=== PATIENT | male | born 1960 | race Caucasian/White ===

== ENCOUNTER 2017-01-11 11:39 | Inpatient (IN) | payer OTHER ==
[2017-01-11 13:17] VITALS: BMI 25.0
--- NOTE | 2017-01-11 13:35 | HP ---
CIWA Score - CIWA Score Nausea/Vomitin-No Nausea/No Vomiting Muscle Tremors: 4-Moderate,w/Arms Extend Anxiety: 4-Mod. Anxious/Guarded Agitation: 4-Moderately Restless Paroxysmal Sweats: 1-Minimal Palms Moist Orientation: 0-Oriented Tacttile Disturbances: 3-Moderate Itch/Numb/Burn Auditory Disturbances: 0-None Visual Disturbances: 0-None Headache: 1-Very Mild CIWA-Ar Total Score: 17 Admission ROS S - HPI Chief Complaint: DETOX TX FOR ALCOHOL DEPENDENCE Allergies/Adverse Reactions: Allergies Allergy/AdvReac Type Severity Reaction Status Date / Time chlordiazepoxide HCl Allergy Rash Verified 01/11/17 12:43 [From Librium] History of Present Illness: 57 Y/O H/M WITH A HX OFALCOHOL,COCAINE AND MARIJUANA DEPENDENCE SEEKING DETOX TX. Exam Limitations: No Limitations - Ebola screening Have you traveled outside of the country in the last 21 days: No Have you had contact with anyone from an Ebola affected area: No Have you been sick,other than usual withdrawal symptoms: No Do you have a fever: No - Review of Systems Constitutional: Chills, Loss of Appetite, Night Sweats, Changes in sleep, Unintentional Wgt. Loss EENT: reports: Tearing, Nose Congestion Respiratory: reports: Shortness of Breath, Wheezing (HX ASTHMA) Cardiac: reports: Lightheadedness GI: reports: Poor Appetite, Poor Fluid Intake, Abdominal cramping : reports: Dysuria, Other (PROSTATE PROBLEM--ON FLOMAX; HAD CATHETER INDWELLING FOR FEW DAYS TO WEEKS.) Musculoskeletal: reports: Back Pain, Joint Pain, Muscle Pain Integumentary: reports: Rash (FACIAL) Neuro: reports: Headache, Tremors, Dizziness Endocrine: reports: No Symptoms Reported Hematology: reports: No Symptoms Reported Psychiatric: reports: Orientated x3, Anxious, Depressed Other Systems: Reviewed and Negative Patient History - Patient Medical History Hx Anemia: Yes (vit b 12 given ) Hx Asthma: Yes (MDI) Hx Chronic Obstructive Pulmonary Disease (COPD): No Hx Cancer: No Hx Cardiac Disorders: No Hx Congestive Heart Failure: No Hx Hypertension: Yes (ON MED) Hx Hypercholesterolemia: No Hx Pacemaker: No HX Cerebrovascular Accident: No Hx Seizures: No Hx Dementia: No Hx Diabetes: No Hx Gastrointestinal Disorders: No Hx Liver Disease: Yes (CIRRHOSIS) Hx Genitourinary Disorders: No Hx Sexually Transmitted Disorders: Yes (genital herpes-ON VALTREX) Hx Renal Disease (ESRD): No Hx Thyroid Disease: No Hx Human Immunodeficiency Virus (HIV): Yes (ORAL THRUSH IN THE PAST; TRIZIVIR & VIRAMUNE) Hx Hepatitis C: Yes (tx with interferon 2013,DID NOT WORK.WILL BE TX. WITH HARVONI ) Hx Depression: Yes Hx Suicide Attempt: No Hx Bipolar Disorder: Yes ( ) Hx Schizophrenia: No - Patient Surgical History Past Surgical History: Yes Hx Neurologic Surgery: No Hx Cataract Extraction: No Hx Cardiac Surgery: No Hx Lung Surgery: No Hx Breast Surgery: No Hx Breast Biopsy: No Hx Abdominal Surgery: No Hx Appendectomy: No Hx Cholecystectomy: No Hx Genitourinary Surgery: No Hx Section: No Hx Orthopedic Surgery: No Other Surgical History: R WRIST SX in 1983 for a laceration Anesthesia Reaction: Yes - PPD History Previous Implant?: Yes Documented Results: Negative w/proof Implanted On Prior [facility] Admission?: Yes Date: 12/12/15 Results: 0 mm PPD to be Administered?: Yes - Reproductive History Patient is a Female of Child Bearing Age (11 -55 yrs old): No (MALE) - Smoking Cessation Smoking history: Current every day smoker Have you smoked in the past 12 months: Yes Aproximately how many cigarettes per day: 30 Hx Chewing Tobacco Use: No Initiated information on smoking cessation: Yes 'Breaking Loose' booklet given: 01/11/17 - Substance & Tx. History Hx Alcohol Use: Yes (COGNAC/WHISKY/BEER) Hx Substance Use: Yes (COCAINE/MARIJUANA) Substance Use Type: Alcohol, Cocaine, Marijuana Hx Substance Use Treatment: Yes ([facility]) - Substances Abused Crack Route: Smoking Frequency: 1-2 times per week Amount used: $200 Age of first use: 25 Date of Last Use: 01/10/17 Alcohol-cognac/whisky/beer Route: Oral Frequency: Daily Amount used: 1 pt./6 (40 oz.) Age of first use: 14 Date of Last Use: 01/11/17 Family Disease History - Family Disease History Family Disease History: Diabetes: Mother, Respiratory: Sister, Other: Father ( addiction to heroin) Admission Physical Exam S - Vital Signs Vital Signs: Vital Signs - 24 hr 01/11/17 13:01 Temperature 96.4 F L Pulse Rate 71 Respiratory 18 Rate Blood Pressure 129/92 - Physical General Appearance: Yes: Moderate Distress, Irritable, Anxious HEENTM: Yes: Normocephalic, ROB, Pharynx Normal, Nasal Congestion, Rhinorrhea Respiratory: Yes: Lungs Clear, Normal Breath Sounds, No Respiratory Distress Neck: Yes: Supple, Trachea in good position Breast: Yes: Breast Exam Deferred Cardiology: Yes: Regular Rhythm, Regular Rate, S1, S2 Abdominal: Yes: Normal Bowel Sounds, Non Tender, Soft Genitourinary: Yes: Other (N/C) Musculoskeletal: Yes: full range of Motion, Gait Steady Extremities: Yes: Normal Range of Motion, Non-Tender Neurological: Yes: crew director II-XII NML intact, Fully Oriented, Alert Integumentary: Yes: Dry, Warm Lymphatic: Yes: Within Normal Limits - Diagnostic (1) Alcohol dependence with uncomplicated withdrawal Current Visit: Yes Status: Acute (2) Cocaine dependence Current Visit: Yes Status: Acute Qualifiers: Substance use status: uncomplicated Qualified Code(s): F14.20 - Cocaine dependence, uncomplicated (3) AIDS (acquired immune deficiency syndrome) Current Visit: Yes Status: Chronic (4) Asthma Current Visit: Yes Status: Chronic Qualifiers: Asthma severity: mild intermittent Asthma complication type: uncomplicated Qualified Code(s): J45.20 - Mild intermittent asthma, uncomplicated (5) Cirrhosis of liver Current Visit: Yes Status: Chronic Qualifiers: Ascites presence: without ascites (6) HIV (human immunodeficiency virus infection) Current Visit: Yes Status: Chronic (7) HTN (hypertension) Current Visit: Yes Status: Chronic Qualifiers: Hypertension type: essential hypertension (8) Hepatitis C Current Visit: Yes Status: Chronic Qualifiers: Viral hepatitis chronicity: chronic Hepatic coma status: without hepatic coma Qualified Code(s): B18.2 - Chronic viral hepatitis C (9) Herpes genitalis in men Current Visit: Yes Status: Chronic (10) Nicotine dependence Current Visit: Yes Status: Chronic Qualifiers: Nicotine product type: cigarettes Substance use status: in withdrawal Qualified Code(s): F17.213 - Nicotine dependence, cigarettes, with withdrawal (11) BPH (benign prostatic hypertrophy) Current Visit: Yes Status: Chronic Qualifiers: Lower urinary tract symptom presence: presence of symptoms unspecified Cleared for Admission S - Detox or Rehab [facility] Level of Care: Medically Managed Detox Regimen/Protocol: Valium BHS Breath Alcohol Content Breath Alcohol Content: 0.042 Urine Drug Screen - Results Drug Screen Negative: No Urine Drug Screen Results: THC-Marijuana, ANGIE-Cocaine
[2017-01-11] MEDS ORDERED: P-EPHED 60MG/TRIPROLIDI 2.5MG TABLET PO PRN (13:47)
[2017-01-11] MEDS ORDERED: IBUPROFEN 400 MG TABLET (FP) PO PRN (13:47)
[2017-01-11] MEDS ORDERED: LOPERAMIDE HCL 2 MG CAPSULE PO PRN (13:47)
[2017-01-11] MEDS ORDERED: guaiFENesin/D-METHORPHAN HB 10 ML UNIT-DOSE CUPS PO PRN (13:47)
[2017-01-11] MEDS ORDERED: diphenhydrAMINE HCL 50 MG CAPSULE PO PRN (13:47)
[2017-01-11] MEDS ORDERED: hydrOXYzine PAMOATE 25 MG CAPSULE (FP) PO PRN (13:47)
[2017-01-11] MEDS ORDERED: NICOTINE POLACRILEX 4 MG GUM BUC PRN (13:47)
[2017-01-11] MEDS ORDERED: ACETAMINOPHEN 325 MG TABLET (FP) PO PRN (13:47)
[2017-01-11] MEDS ORDERED: MAGNESIUM CITRATE 300 ML BOTTLE PO PRN (13:47)
[2017-01-11] MEDS ORDERED: MENTHOL/PHENOL 1 EACH UD MM PRN (13:47)
[2017-01-11] MEDS ORDERED: MAGNESIUM HYDROX 2400MG/30ML ORAL SUSPENSION 30 ML CUP PO PRN (13:47)
[2017-01-11] MEDS ORDERED: MAG HYDROX/AL HYDROX/SIMETH 30 ML UNIT-DOSE CUP PO PRN (13:47)
[2017-01-11] MEDS ORDERED: diazePAM 5 MG TABLET PO PRN (13:47)
[2017-01-11] MEDS ORDERED: ALBUTEROL SO4 6.7 GM HFA INHALER IH PRN (13:51)
[2017-01-11] MEDS ORDERED: diazePAM 5 MG TABLET PO ONE (14:22)
[2017-01-11] MEDS: HYDROCORTISONE 1% TOPICAL CREAM 30 GM TUBE TP SCH ×2 (15:15→22:06)
[2017-01-11] MEDS: NICOTINE 21 MG/24 HOURS TOPICAL PATCH TD SCH (15:15)
[2017-01-11] MEDS: amLODIPine BESYLATE 10 MG TABLET (FP) PO SCH (15:15)
[2017-01-11] MEDS: valACYclovir HCL 500 MG TABLET (FP) PO SCH (15:18)
[2017-01-11] MEDS: diazePAM 5 MG TABLET PO SCH (22:06)
[2017-01-11] MEDS: LAMIVUDINE PO SCH (22:07)
[2017-01-11] MEDS: NEVIRAPINE 200 MG TABLET PO SCH (22:07)
[2017-01-11] MEDS: ABACAVIR PO SCH (22:07)
[2017-01-11] MEDS: ZIDOVUDINE PO SCH (22:07)
[2017-01-11] MEDS: TAMSULOSIN HCL 0.4 MG CAP.ER.24H (FP) PO SCH (22:07)
[2017-01-11] MEDS: THIAMINE HCL 100 MG TABLET (FP) PO SCH (22:09)
[2017-01-11 23:31] LABS: URINE APPEARANCE CLEAR; URINE BILIRUBIN NEGATIVE (NEGATIVE); URINE BLOOD NEGATIVE (NEGATIVE); URINE COLOR AMBER; URINE GLUCOSE (UA) NEGATIVE (NEGATIVE); URINE KETONE NEGATIVE (NEGATIVE); URINE LEUK ESTERASE NEGATIVE (NEGATIVE); URINE NITRITE NEGATIVE (NEGATIVE); URINE UROBILINOGEN 4.0 E.U/dl E.U./dl (0.2-1.0)
[2017-01-11 23:36] LABS: URINE PROTEIN 2+ (NEGATIVE)
[2017-01-11 23:40] LABS: URINE MUCUS MODERATE; URINE RBC 65 /hpf (0-3); URINE WBC 21 /hpf (3-5)
[2017-01-12] MEDS: diazePAM 5 MG TABLET PO SCH ×3 (06:05→22:04)
[2017-01-12] MEDS: PRENATAL VITAMINS W/ FOLIC ACID TABLET (FP) PO SCH (10:26)
[2017-01-12] MEDS: valACYclovir HCL 500 MG TABLET (FP) PO SCH (10:26)
[2017-01-12] MEDS: LAMIVUDINE PO SCH ×2 (10:26→22:04)
[2017-01-12] MEDS: ZIDOVUDINE PO SCH ×2 (10:26→22:04)
[2017-01-12] MEDS: ABACAVIR PO SCH ×2 (10:26→22:04)
[2017-01-12] MEDS: NEVIRAPINE 200 MG TABLET PO SCH ×2 (10:27→22:05)
[2017-01-12] MEDS: NICOTINE 21 MG/24 HOURS TOPICAL PATCH TD SCH (10:27)
[2017-01-12] MEDS: amLODIPine BESYLATE 10 MG TABLET (FP) PO SCH (10:28)
[2017-01-12] MEDS: HYDROCORTISONE 1% TOPICAL CREAM 30 GM TUBE TP SCH ×2 (10:28→22:05)
[2017-01-12 10:46] LABS: BILIRUBIN,TOTAL 0.8 mg/dL (0.2-1.0); CALCIUM 8.8 mg/dL (8.5-10.1); COCKROFT - GAULT 65.9; CREATININE 1.3 mg/dL (0.7-1.3)
[2017-01-12 11:01] LABS: MCH 38.5 pg (25.7-33.7); MCHC 35.7 g/dl (32.0-35.9); MEAN CELL VOLUME 107.7 fl (80-96); MEAN PLT VOLUME 8.9 fl (7.5-11.1); PLATELET COUNT 218 K/MM3 (134-434); RDW 20.3 % (11.9-15.9); WHITE BLOOD COUNT 7.4 K/mm3 (4.0-10.0)
--- NOTE | 2017-01-12 12:22 | PN ---
S CIWA - CIWA Score Nausea/Vomitin-No Nausea/No Vomiting Muscle Tremors: 4-Moderate,w/Arms Extend Anxiety: 4-Mod. Anxious/Guarded Agitation: 3 Paroxysmal Sweats: 3 Orientation: 0-Oriented Tacttile Disturbances: 0-None Auditory Disturbances: 0-None Visual Disturbances: 0-None Headache: 0-None Present CIWA-Ar Total Score: 14 BHS Progress Note (SOAP) Subjective: Tremors,anxiety,sweating,interrupted sleep,restless Objective: 01/12/17 12:20 Vital Signs - 8 hr 01/12/17 01/12/17 06:24 09:55 Temperature 96 F L 95.0 F L Pulse Rate 86 67 Respiratory 8 L 20 Rate Blood Pressure 141/93 142/90 Laboratory Tests 01/11/17 01/12/17 01/12/17 22:05 06:00 06:00 WBC 7.4 RBC 3.76 L Hgb 14.4 Hct 40.4 MCV 107.7 H MCHC 35.7 RDW 20.3 H Plt Count 218 D MPV 8.9 D Sodium 139 Potassium 3.6 Chloride 102 Carbon Dioxide 27 D Anion Gap 10 BUN 20 H D Creatinine 1.3 D Creat Clearance w eGFR 57.31 Random Glucose 77 D Calcium 8.8 Total Bilirubin 0.8 AST 39 H D ALT 29 D Alkaline Phosphatase 88 Total Protein 8.0 Albumin 4.0 Urine Color Silvia Urine Appearance Clear Urine pH 5.0 Ur Specific [place] 1.030 Urine Protein 2+ H Urine Glucose (UA) Negative Urine Ketones Negative Urine Blood Negative Urine Nitrite Negative Urine Bilirubin Negative Urine Urobilinogen 4.0 e.u/dl Ur Leukocyte Esterase Negative Urine RBC 65 Urine WBC 21 Urine Mucus Moderate labs noted Assessment: 01/12/17 12:21 Withdrawal sx. Plan: Continue detox
--- NOTE | 2017-01-12 12:30 | CONSULT ---
[facility] Psychiatric Consult - Data Date of interview: 01/12/17 Admission source: [facility] Identifying data: Another admission to [facility] for this 57 y/o male seeking detox treatment for cocaine,marijuana and alcohol dependence.Patient is single without children,unemployed,domiciled (O setting) and supported through [facility] services. Substance Abuse History: - Smoking Cessation. Smoking history: Current every day smoker. Have you smoked in the past 12 months: Yes. Aproximately how many cigarettes per day: 30. Hx Chewing Tobacco Use: No. Initiated information on smoking cessation: Yes. 'Breaking Loose' booklet given: 01/11/17. - Substance & Tx. History. Hx Alcohol Use: Yes (COGNAC/WHISKY/BEER). Hx Substance Use: Yes (COCAINE/MARIJUANA). Substance Use Type: Alcohol, Cocaine, Marijuana. Hx Substance Use Treatment: Yes ([facility]-DETOX). - Substances Abused. Crack. Route: Smoking. Frequency: 1-2 times per week. Amount used: $200. Age of first use: 25. Date of Last Use: 01/10/17. Alcohol-cognac/whisky/beer. Route: Oral. Frequency: Daily. Amount used: 1 pt./6 (40 oz.). Age of first use: 14. Date of Last Use: 01/11/17. Confirmed by patient. Medical History: HIV infection since 1985,herpes genitalis,bronchial asthma,HTN, cirrhosis of liver,hepatitis C and BPH (benign prostatic hyperplasia).Noted past history of treatment for gonorrhea. Psychiatric History: Long standing history of mental illness.Multiple psychiatric hospitalizations.Diagnosed with Bipolar Disorder and ADHD (age 9) .Prescribed seroquel 100 mg/hs.Psychiatric OPD care is rendered at the [facility] mental health clinic in [facility].Mr Up admits to a history of suicide attempt via self-mutilation (wrist-cutting) in 2011. Physical/Sexual Abuse/Trauma History: Patient denies. Additional Comment: Urine Drug Screen Results: THC-Marijuana, ANGIE-Cocaine.Noted. Mental Status Exam - Mental Status Exam Alert and Oriented to: Time, Place, Person Cognitive Function: Good Patient Appearance: Well Groomed Mood: Withdrawn, Anxious, Apprehensive Affect: Mood Congruent Patient Behavior: Fatigued, Cooperative Speech Pattern: Clear Voice Loudness: Normal Thought Process: Goal Oriented Thought Disorder: Not Present Hallucinations: Denies Suicidal Ideation: Denies Homicidal Ideation: Denies Insight/Judgement: Poor Sleep: Poorly, Difficulty falling asleep Appetite: Good Muscle strength/Tone: Normal Gait/Station: Normal Psychiatric Findings - Problem List ([place] 1, 2,3) (1) Alcohol dependence with uncomplicated withdrawal Current Visit: Yes Status: Acute (2) Cocaine dependence Current Visit: Yes Status: Acute Qualifiers: Substance use status: uncomplicated Qualified Code(s): F14.20 - Cocaine dependence, uncomplicated (3) Marijuana dependence Current Visit: Yes Status: Acute (4) Nicotine dependence Current Visit: Yes Status: Acute Qualifiers: Nicotine product type: cigarettes Substance use status: in withdrawal Qualified Code(s): F17.213 - Nicotine dependence, cigarettes, with withdrawal (5) Schizoaffective disorder Current Visit: Yes Status: Chronic (6) AIDS (acquired immune deficiency syndrome) Current Visit: Yes Status: Chronic (7) Asthma Current Visit: Yes Status: Chronic Qualifiers: Asthma severity: mild intermittent Asthma complication type: uncomplicated Qualified Code(s): J45.20 - Mild intermittent asthma, uncomplicated (8) BPH (benign prostatic hypertrophy) Current Visit: Yes Status: Chronic Qualifiers: Lower urinary tract symptom presence: presence of symptoms unspecified (9) Cirrhosis of liver Current Visit: Yes Status: Chronic Qualifiers: Ascites presence: without ascites (10) HTN (hypertension) Current Visit: Yes Status: Chronic Qualifiers: Hypertension type: essential hypertension (11) Hepatitis C Current Visit: Yes Status: Chronic Qualifiers: Viral hepatitis chronicity: chronic Hepatic coma status: without hepatic coma Qualified Code(s): B18.2 - Chronic viral hepatitis C (12) Herpes genitalis in men Current Visit: Yes Status: Chronic - Initial Treatment Plan Initial Treatment Plan: Psychoeducation.Detoxification.Seroquel 100 mg po hs.Side effects/benefits discussed with patient.Observation.
[2017-01-12 12:35] LABS: ANISOCYTOSIS 2+
--- NOTE | 2017-01-12 14:30 | EKG ---
Test Reason : Blood Pressure : / mmHG Vent. Rate : 069 BPM Atrial Rate : 069 BPM P-R Int : 120 ms QRS Dur : 092 ms QT Int : 436 ms P-R-T Axes : 060 050 007 degrees QTc Int : 467 ms NORMAL SINUS RHYTHM WITH SINUS ARRHYTHMIA VOLTAGE CRITERIA FOR LEFT VENTRICULAR HYPERTROPHY NONSPECIFIC ST ABNORMALITY ABNORMAL ECG NO PREVIOUS ECGS AVAILABLE Confirmed by KYLER THOMSON MD ([id number]) on 01/12/2017 2:30:28 PM Referred By: Confirmed By:KYLER THOMSON MD
[2017-01-12] MEDS ORDERED: QUEtiapine FUMARATE 50 MG TABLET ONE (20:58)
[2017-01-12] MEDS ORDERED: QUEtiapine FUMARATE 100 MG TABLET (FP) PO SCH (22:00)
[2017-01-12] MEDS: TAMSULOSIN HCL 0.4 MG CAP.ER.24H (FP) PO SCH (22:04)
[2017-01-12] MEDS: THIAMINE HCL 100 MG TABLET (FP) PO SCH (22:04)
[2017-01-13] MEDS: NICOTINE 21 MG/24 HOURS TOPICAL PATCH TD SCH (10:12)
[2017-01-13] MEDS: diazePAM 5 MG TABLET PO SCH ×2 (10:13→22:12)
[2017-01-13] MEDS: NEVIRAPINE 200 MG TABLET PO SCH ×2 (10:13→22:12)
[2017-01-13] MEDS: amLODIPine BESYLATE 10 MG TABLET (FP) PO SCH (10:13)
[2017-01-13] MEDS: valACYclovir HCL 500 MG TABLET (FP) PO SCH (10:13)
[2017-01-13] MEDS: HYDROCORTISONE 1% TOPICAL CREAM 30 GM TUBE TP SCH ×2 (10:14→22:09)
[2017-01-13] MEDS: PRENATAL VITAMINS W/ FOLIC ACID TABLET (FP) PO SCH (10:14)
[2017-01-13] MEDS: ABACAVIR PO SCH ×2 (10:14→22:12)
[2017-01-13] MEDS: LAMIVUDINE PO SCH ×2 (10:14→22:12)
[2017-01-13] MEDS: ZIDOVUDINE PO SCH ×2 (10:14→22:12)
--- NOTE | 2017-01-13 10:32 | PN ---
Psychiatric Progress Note Vital Signs: Vital Signs Period Temp Pulse Resp BP Sys/Blank Pulse Ox Last 24 Hr 95.8 F-98.4 F 71-81 18-20 121-159/74-105 Date of Session: 01/13/17 Chief Complaint:: My medications HPI: Patient reports florina carry Bipolar disorder, reports taking prior to admission: Risperdal 2mg po qhs. Depakote 500mg po qhs. \Asking to d/c Seroquel Current Medications: Active Medications Generic Name Dose Route Start Last Admin Trade Name Freq PRN Reason Stop Dose Admin Abacavir/Lamivudine/Zidovudine 1 tab 01/11/17 22:00 01/13/17 10:14 Trizivir - PO 1 tab BID MAYANK Administration Acetaminophen 650 mg 01/11/17 13:47 Tylenol - PO Q4H PRN FEVER OR PAIN Al Hydroxide/Mg Hydroxide 30 ml 01/11/17 13:47 Mylanta Oral Suspension - PO Q6H PRN DYSPEPSIA Albuterol Sulfate 1 puff 01/11/17 13:51 Ventolin Hfa Inhaler - IH Q4H PRN SHORTNESS OF BREATH Amlodipine Besylate 10 mg 01/11/17 14:23 01/13/17 10:13 Norvasc - PO 10 mg DAILY MAYANK Administration Diazepam 10 mg 01/11/17 13:47 Valium - PO 01/14/17 13:46 Q4H PRN WITHDRAWAL(CONT SUBST) Diazepam 5 mg 01/13/17 10:00 01/13/17 10:13 Valium - PO 01/14/17 22:01 5 mg BID MAYANK Administration Diazepam 5 mg 01/15/17 10:00 Valium - PO 01/15/17 10:01 DAILY MAYANK Diphenhydramine HCl 50 mg 01/11/17 13:47 Benadryl - PO HSMR1 PRN INSOMNIA Divalproex Sodium 500 mg 01/13/17 22:00 Depakote - PO HS MAYANK Eucalyptus/Menthol/Phenol/Sorbitol 1 each 01/11/17 13:47 Cepastat Lozenge - MM Q4H PRN SORE THROAT Guaifenesin 10 ml 01/11/17 13:47 Robitussin Dm - PO Q6H PRN COUGH Hydrocortisone 1 applic 01/11/17 14:00 01/13/17 10:14 Hytone 1% Cream - TP 1 applic BID MAYANK Administration Hydroxyzine Pamoate 25 mg 01/11/17 13:47 Vistaril - PO Q4H PRN AGITATION Ibuprofen 400 mg 01/11/17 13:47 Motrin - PO Q6H PRN SEVERE PAIN Loperamide HCl 4 mg 01/11/17 13:47 Imodium - PO Q6H PRN DIARRHEA Magnesium Citrate 300 ml 01/11/17 13:47 Citroma - PO Q48H PRN CONSTIPATION Magnesium Hydroxide 30 ml 01/11/17 13:47 Milk Of Magnesia - PO DAILY PRN CONSTIPATION Nevirapine 200 mg 01/11/17 22:00 01/13/17 10:13 Viramune - PO 200 mg BID MAYANK Administration Nicotine 21 mg 01/11/17 14:27 01/13/17 10:12 Nicoderm Patch - TD 21 mg DAILY MAYANK Administration Nicotine Polacrilex 4 mg 01/11/17 13:47 Nicorette Gum - BUC Q2H PRN NICOTINE REPLACEMENT RX Multivit/Folic Acid/Iron 1 tab 01/12/17 10:00 01/13/17 10:14 Vitamins (Sjr) - PO 1 tab DAILY MAYANK Administration Pseudoephedrine/Triprolidine 1 combo 01/11/17 13:47 Actifed - PO TID PRN NASAL CONGESTION Risperidone 2 mg 01/13/17 22:00 Risperdal - PO HS MAYANK Tamsulosin HCl 0.4 mg 01/11/17 22:00 01/12/17 22:04 Flomax - PO 0.4 mg HS MAYANK Administration Thiamine HCl 100 mg 01/11/17 22:00 01/12/17 22:04 Vitamin B1 - PO 100 mg HS MAYANK Administration Valacyclovir HCl 500 mg 01/11/17 14:00 01/13/17 10:13 Valtrex - PO 500 mg DAILY MAYANK Administration Medication(s) Change(s): Risperdal 2mg po qhs. Depakote 500mg po qhs. D/c [id number] po qhs Mental Status Exam - Mental Status Exam Alert and Oriented to: Person Cognitive Function: Fair Patient Appearance: Unkempt Mood: Nervous, Anxious Affect: Labile Patient Behavior: Guarded, Impulsive Speech Pattern: Excessive Voice Loudness: Mildly Loud Thought Process: Circumstantial, Goal Oriented Thought Disorder: Being Controlled Hallucinations: Denies Suicidal Ideation: Denies Homicidal Ideation: Denies Insight/Judgement: Fair Sleep: Difficulty falling asleep Appetite: Fair Muscle strength/Tone: Normal Gait/Station: Normal Additional Comments: Risperdal 2mg po qhs. Depakote 500mg po qhs Psychiatric Treatment Plan - Problem List (1) Alcohol dependence with uncomplicated withdrawal Current Visit: Yes (2) Cocaine dependence Current Visit: Yes Qualifiers: Substance use status: uncomplicated Qualified Code(s): F14.20 - Cocaine dependence, uncomplicated (3) Marijuana dependence Current Visit: Yes (4) Nicotine dependence Current Visit: Yes Qualifiers: Nicotine product type: cigarettes Substance use status: in withdrawal Qualified Code(s): F17.213 - Nicotine dependence, cigarettes, with withdrawal (5) Schizoaffective disorder Current Visit: Yes (6) Bipolar II disorder Current Visit: No Initial treatment plan: Risperdal 2mg po qhs. Depakote 500mg po qhs
--- NOTE | 2017-01-13 12:07 | PN ---
[facility] CIWA - CIWA Score Nausea/Vomitin Muscle Tremors: 3 Anxiety: 4-Mod. Anxious/Guarded Agitation: 3 Paroxysmal Sweats: 1-Minimal Palms Moist Orientation: 1-Uncertain about Date Tacttile Disturbances: 2-Mild Itch/Numbness/Burn Auditory Disturbances: 0-None Visual Disturbances: 0-None Headache: 0-None Present CIWA-Ar Total Score: 16 S Progress Note (SOAP) Subjective: Tremors, H/A, Body Aches. Objective: PT. A & O X 2 (DISORIENTED ABOUT DAY / DATE). PT. OBSERVED AMBULATING ON UNIT. 01/13/17 12:05 Vital Signs Temperature 98.4 F 01/13/17 09:41 Pulse Rate 73 01/13/17 09:41 Respiratory Rate 20 01/13/17 09:41 Blood Pressure 159/105 01/13/17 09:41 O2 Sat by Pulse Oximetry (%) Laboratory Last Values WBC 7.4 K/mm3 (4.0-10.0) 01/12/17 06:00 RBC 3.76 M/mm3 (4.00-5.60) L 01/12/17 06:00 Hgb 14.4 GM/dL (11.7-16.9) 01/12/17 06:00 Hct 40.4 % (35.4-49) 01/12/17 06:00 MCV 107.7 fl (80-96) H 01/12/17 06:00 MCHC 35.7 g/dl (32.0-35.9) 01/12/17 06:00 RDW 20.3 % (11.9-15.9) H 01/12/17 06:00 Plt Count 218 K/MM3 (134-434) D 01/12/17 06:00 MPV 8.9 fl (7.5-11.1) D 01/12/17 06:00 Anisocytosis 2+ 01/12/17 06:00 Macrocytosis 2+ 01/12/17 06:00 Sodium 139 mmol/L (136-145) 01/12/17 06:00 Potassium 3.6 mmol/L (3.5-5.1) 01/12/17 06:00 Chloride 102 mmol/L (98-107) 01/12/17 06:00 Carbon Dioxide 27 mmol/L (21-32) D 01/12/17 06:00 Anion Gap 10 (8-16) 01/12/17 06:00 BUN 20 mg/dL (7-18) H D 01/12/17 06:00 Creatinine 1.3 mg/dL (0.7-1.3) D 01/12/17 06:00 Creat Clearance w eGFR 57.31 (>60) 01/12/17 06:00 Random Glucose 77 mg/dL (74-106) D 01/12/17 06:00 Calcium 8.8 mg/dL (8.5-10.1) 01/12/17 06:00 Total Bilirubin 0.8 mg/dL (0.2-1.0) 01/12/17 06:00 AST 39 U/L (15-37) H D 01/12/17 06:00 ALT 29 U/L (12-78) D 01/12/17 06:00 Alkaline Phosphatase 88 U/L (45-117) 01/12/17 06:00 Total Protein 8.0 g/dl (6.4-8.2) 01/12/17 06:00 Albumin 4.0 g/dl (3.4-5.0) 01/12/17 06:00 Urine Color Silvia 01/11/17 22:05 Urine Appearance Clear 01/11/17 22:05 Urine pH 5.0 (5.0-8.0) 01/11/17 22:05 Ur Specific [place] 1.030 (1.001-1.035) 01/11/17 22:05 Urine Protein 2+ (NEGATIVE) H 01/11/17 22:05 Urine Glucose (UA) Negative (NEGATIVE) 01/11/17 22:05 Urine Ketones Negative (NEGATIVE) 01/11/17 22:05 Urine Blood Negative (NEGATIVE) 01/11/17 22:05 Urine Nitrite Negative (NEGATIVE) 01/11/17 22:05 Urine Bilirubin Negative (NEGATIVE) 01/11/17 22:05 Urine Urobilinogen 4.0 e.u/dl E.U./dl (0.2-1.0) 01/11/17 22:05 Ur Leukocyte Esterase Negative (NEGATIVE) 01/11/17 22:05 Urine RBC 65 /hpf (0-3) 01/11/17 22:05 Urine WBC 21 /hpf (3-5) 01/11/17 22:05 Urine Mucus Moderate 01/11/17 22:05 RPR Titer Nonreactive (NONREACTIVE) 01/12/17 06:00 LABS NOTED. Assessment: 01/13/17 12:06 WITHDRAWAL SYMPTOMS. Plan: CONTINUE DETOX. ADVISED PATIENT TO FOLLOW-UP WITH PIPE CHANGER / REHAB MEDICAL PROVIDER AFTER DISCHARGE FROM DETOX FOR GENERAL MEDICAL ASSESSMENT AND FOR ABNORMAL ADMISSION LAB VALUES.
[2017-01-13] MEDS: risperiDONE 2 MG TABLET PO SCH (22:12)
[2017-01-13] MEDS: DIVALPROEX SODIUM 500 MG TABLET E.C. PO SCH (22:12)
[2017-01-13] MEDS: THIAMINE HCL 100 MG TABLET (FP) PO SCH (22:12)
[2017-01-13] MEDS ORDERED: BACITRACIN 0.9 GM PACKET TP ONE (22:12)
[2017-01-13] MEDS: TAMSULOSIN HCL 0.4 MG CAP.ER.24H (FP) PO SCH (22:12)
[2017-01-14] MEDS: PRENATAL VITAMINS W/ FOLIC ACID TABLET (FP) PO SCH (10:09)
[2017-01-14] MEDS: ZIDOVUDINE PO SCH ×2 (10:09→22:12)
[2017-01-14] MEDS: HYDROCORTISONE 1% TOPICAL CREAM 30 GM TUBE TP SCH ×2 (10:09→22:12)
[2017-01-14] MEDS: diazePAM 5 MG TABLET PO SCH ×2 (10:09→22:11)
[2017-01-14] MEDS: amLODIPine BESYLATE 10 MG TABLET (FP) PO SCH (10:09)
[2017-01-14] MEDS: valACYclovir HCL 500 MG TABLET (FP) PO SCH (10:09)
[2017-01-14] MEDS: LAMIVUDINE PO SCH ×2 (10:09→22:12)
[2017-01-14] MEDS: ABACAVIR PO SCH ×2 (10:09→22:12)
[2017-01-14] MEDS: NICOTINE 21 MG/24 HOURS TOPICAL PATCH TD SCH (10:09)
[2017-01-14] MEDS: NEVIRAPINE 200 MG TABLET PO SCH ×2 (10:09→22:12)
--- NOTE | 2017-01-14 11:08 | PN ---
[facility] Progress Note (SOAP) Subjective: nausea, sweats, interrupted sleep, anxiety, tremors Objective: 01/14/17 11:02 Vital Signs - 8 hr 01/14/17 01/14/17 01/14/17 03:30 06:26 09:41 Temperature 96.2 F L 98.8 F Pulse Rate 72 76 Respiratory 18 18 18 Rate Blood Pressure 134/95 141/93 Laboratory Tests 01/11/17 01/12/17 01/12/17 22:05 06:00 06:00 WBC 7.4 RBC 3.76 L Hgb 14.4 Hct 40.4 MCV 107.7 H MCHC 35.7 RDW 20.3 H Plt Count 218 D MPV 8.9 D Anisocytosis 2+ Macrocytosis 2+ Sodium 139 Potassium 3.6 Chloride 102 Carbon Dioxide 27 D Anion Gap 10 BUN 20 H D Creatinine 1.3 D Creat Clearance w eGFR 57.31 Random Glucose 77 D Calcium 8.8 Total Bilirubin 0.8 AST 39 H D ALT 29 D Alkaline Phosphatase 88 Total Protein 8.0 Albumin 4.0 Urine Color Silvia Urine Appearance Clear Urine pH 5.0 Ur Specific [place] 1.030 Urine Protein 2+ H Urine Glucose (UA) Negative Urine Ketones Negative Urine Blood Negative Urine Nitrite Negative Urine Bilirubin Negative Urine Urobilinogen 4.0 e.u/dl Ur Leukocyte Esterase Negative Urine RBC 65 Urine WBC 21 Urine Mucus Moderate RPR Titer 01/12/17 06:00 WBC RBC Hgb Hct MCV MCHC RDW Plt Count MPV Anisocytosis Macrocytosis Sodium Potassium Chloride Carbon Dioxide Anion Gap BUN Creatinine Creat Clearance w eGFR Random Glucose Calcium Total Bilirubin AST ALT Alkaline Phosphatase Total Protein Albumin Urine Color Urine Appearance Urine pH Ur Specific [place] Urine Protein Urine Glucose (UA) Urine Ketones Urine Blood Urine Nitrite Urine Bilirubin Urine Urobilinogen Ur Leukocyte Esterase Urine RBC Urine WBC Urine Mucus RPR Titer Nonreactive elevated bun and creatinine Assessment: 01/14/17 11:08 withdrawal sx Plan: cont detox, fluids and cencourage ambulation
[2017-01-14] MEDS: risperiDONE 2 MG TABLET PO SCH (22:11)
[2017-01-14] MEDS: THIAMINE HCL 100 MG TABLET (FP) PO SCH (22:12)
[2017-01-14] MEDS: TAMSULOSIN HCL 0.4 MG CAP.ER.24H (FP) PO SCH (22:12)
[2017-01-14] MEDS: DIVALPROEX SODIUM 500 MG TABLET E.C. PO SCH (22:12)
[2017-01-15 09:33] VITALS: BP 137/90; PULSE 80; TEMP 98
--- NOTE | 2017-01-15 09:59 | DS ---
[facility] Detox Discharge Summary Admission Date: 01/11/17 Discharge Date: 01/15/17 - History Present History: Alcohol Dependence, Cocaine Dependence Pertinent Past History: Asthma, HTN, hep C, depression, HIV +, Herpes, BPH - Physical Exam Results Vital Signs: Vital Signs Temperature 98 F 01/15/17 09:32 Pulse Rate 80 01/15/17 09:32 Respiratory Rate 20 01/15/17 09:32 Blood Pressure 137/90 01/15/17 09:32 O2 Sat by Pulse Oximetry (%) Pertinent Admission Physical Exam Findings: withdrawal sx Laboratory Last Values WBC 7.4 K/mm3 (4.0-10.0) 01/12/17 06:00 RBC 3.76 M/mm3 (4.00-5.60) L 01/12/17 06:00 Hgb 14.4 GM/dL (11.7-16.9) 01/12/17 06:00 Hct 40.4 % (35.4-49) 01/12/17 06:00 MCV 107.7 fl (80-96) H 01/12/17 06:00 MCHC 35.7 g/dl (32.0-35.9) 01/12/17 06:00 RDW 20.3 % (11.9-15.9) H 01/12/17 06:00 Plt Count 218 K/MM3 (134-434) D 01/12/17 06:00 MPV 8.9 fl (7.5-11.1) D 01/12/17 06:00 Anisocytosis 2+ 01/12/17 06:00 Macrocytosis 2+ 01/12/17 06:00 Sodium 139 mmol/L (136-145) 01/12/17 06:00 Potassium 3.6 mmol/L (3.5-5.1) 01/12/17 06:00 Chloride 102 mmol/L (98-107) 01/12/17 06:00 Carbon Dioxide 27 mmol/L (21-32) D 01/12/17 06:00 Anion Gap 10 (8-16) 01/12/17 06:00 BUN 20 mg/dL (7-18) H D 01/12/17 06:00 Creatinine 1.3 mg/dL (0.7-1.3) D 01/12/17 06:00 Creat Clearance w eGFR 57.31 (>60) 01/12/17 06:00 Random Glucose 77 mg/dL (74-106) D 01/12/17 06:00 Calcium 8.8 mg/dL (8.5-10.1) 01/12/17 06:00 Total Bilirubin 0.8 mg/dL (0.2-1.0) 01/12/17 06:00 AST 39 U/L (15-37) H D 01/12/17 06:00 ALT 29 U/L (12-78) D 01/12/17 06:00 Alkaline Phosphatase 88 U/L (45-117) 01/12/17 06:00 Total Protein 8.0 g/dl (6.4-8.2) 01/12/17 06:00 Albumin 4.0 g/dl (3.4-5.0) 01/12/17 06:00 Urine Color [place] 01/11/17 22:05 Urine Appearance Clear 01/11/17 22:05 Urine pH 5.0 (5.0-8.0) 01/11/17 22:05 Ur Specific [place] 1.030 (1.001-1.035) 01/11/17 22:05 Urine Protein 2+ (NEGATIVE) H 01/11/17 22:05 Urine Glucose (UA) Negative (NEGATIVE) 01/11/17 22:05 Urine Ketones Negative (NEGATIVE) 01/11/17 22:05 Urine Blood Negative (NEGATIVE) 01/11/17 22:05 Urine Nitrite Negative (NEGATIVE) 01/11/17 22:05 Urine Bilirubin Negative (NEGATIVE) 01/11/17 22:05 Urine Urobilinogen 4.0 e.u/dl E.U./dl (0.2-1.0) 01/11/17 22:05 Ur Leukocyte Esterase Negative (NEGATIVE) 01/11/17 22:05 Urine RBC 65 /hpf (0-3) 01/11/17 22:05 Urine WBC 21 /hpf (3-5) 01/11/17 22:05 Urine Mucus Moderate 01/11/17 22:05 RPR Titer Nonreactive (NONREACTIVE) 01/12/17 06:00 labs noted - Treatment Hospital Course: Detox Protocol Followed, Detoxed Safely, Responded well, Discharged Condition Good - Medication Discharge Medications: Ambulatory Orders Albuterol Sulfate Inhaler - [Ventolin HFA Inhaler -] 1 puff IH Q4H PRN #1 inhaler 01/26/16 Amlodipine Besylate [Norvasc -] 10 mg PO DAILY #30 tablet 01/26/16 Nevirapine [Viramune -] 200 mg PO BID #60 tablet 01/26/16 Fluticasone/Salmeterol [Advair 250-50 Diskus] 1 each IH BID #1 disk.w.dev Valacyclovir HCl [Valtrex -] 500 mg PO DAILY #30 tablet 02/12/16 Abacavir/Lamivudine/Zidovudine [Trizivir Tablet -] 1 tab PO BID 03/24/16 Divalproex Sodium 500 mg PO HS 01/11/17 Hydrocortisone 1% Cream [Hytone 1% Cream -] 1 applic TP BID 01/11/17 Risperidone [Risperdal] 2 mg PO HS 01/11/17 Tamsulosin HCl [Flomax -] 0.4 mg PO HS 01/11/17 Quetiapine Fumarate [Seroquel] 100 mg PO HS #30 tablet 01/12/17 Divalproex Sodium [Depakote] 250 mg PO HS #30 tab 01/13/17 Risperidone [Risperdal -] 2 mg PO HS #30 tablet 01/13/17 - Diagnosis (1) Alcohol dependence with uncomplicated withdrawal Status: Acute (2) Cocaine dependence Status: Acute Qualifiers: Substance use status: uncomplicated Qualified Code(s): F14.20 - Cocaine dependence, uncomplicated (3) Marijuana dependence Status: Acute (4) Nicotine dependence Status: Acute Qualifiers: Nicotine product type: cigarettes Substance use status: in withdrawal Qualified Code(s): F17.213 - Nicotine dependence, cigarettes, with withdrawal (5) AIDS (acquired immune deficiency syndrome) Status: Chronic (6) Asthma Status: Chronic Qualifiers: Asthma severity: mild intermittent Asthma complication type: uncomplicated Qualified Code(s): J45.20 - Mild intermittent asthma, uncomplicated (7) BPH (benign prostatic hypertrophy) Status: Chronic Qualifiers: Lower urinary tract symptom presence: presence of symptoms unspecified (8) Bipolar II disorder Status: Chronic (9) Cirrhosis of liver Status: Chronic Qualifiers: Ascites presence: without ascites (10) HIV (human immunodeficiency virus infection) Status: Chronic (11) HTN (hypertension) Status: Chronic Qualifiers: Hypertension type: essential hypertension (12) Hepatitis C Status: Chronic Qualifiers: Viral hepatitis chronicity: chronic Hepatic coma status: without hepatic coma Qualified Code(s): B18.2 - Chronic viral hepatitis C (13) Herpes genitalis in men Status: Acute (14) Schizoaffective disorder Status: Chronic Qualifiers: Schizoaffective disorder type: bipolar Qualified Code(s): F25.0 - Schizoaffective disorder, bipolar type - AMA Did Patient Leave Against Medical Advice: No
[2017-01-15] MEDS ORDERED: diazePAM 5 MG TABLET PO SCH (10:00)
== END 2017-01-15 09:10 | disposition home or self-care (01) | DRG 774 ==
LOC: YASAS 11:39 → Y3N 14:21
PROVIDERS: ADMIT Internal Medicine; ATTEND Internal Medicine
PROC: HZ2ZZZZ Detoxification Services for Substance Abuse Treatment (ICD-10-PCS; principal; 2017-01-15)
DX: F10.230 Alcohol dependence with withdrawal, uncomplicated (principal); F14.20 Cocaine dependence, uncomplicated; F12.20 Cannabis dependence, uncomplicated; F17.210 Nicotine dependence, cigarettes, uncomplicated; F31.81 Bipolar II disorder; F25.0 Schizoaffective disorder, bipolar type; Z21 Asymptomatic human immunodeficiency virus [HIV] infection status; B18.2 Chronic viral hepatitis C; I10 Essential (primary) hypertension; A60.02 Herpesviral infection of other male genital organs; N39.0 Urinary tract infection, site not specified; N40.0 Benign prostatic hyperplasia without lower urinary tract symptoms; J45.20 Mild intermittent asthma, uncomplicated; K70.30 Alcoholic cirrhosis of liver without ascites
CPT/HCPCS: 36415; 80053; 81003; 81015; 85027; 86593; 93005; 93010

== ENCOUNTER 2017-04-10 12:25 | Inpatient (IN) | payer OTHER ==
[2017-04-10 13:40] VITALS: BMI 24.1
--- NOTE | 2017-04-10 15:05 | HP ---
CIWA Score - CIWA Score Nausea/Vomitin Muscle Tremors: 3 Anxiety: 3 Agitation: 3 Paroxysmal Sweats: 2 Orientation: 0-Oriented Tacttile Disturbances: 2-Mild Itch/Numbness/Burn Auditory Disturbances: 2-Mild Harshness/Frighten Visual Disturbances: 2-Mild Sensitivity Headache: 2-Mild CIWA-Ar Total Score: 22 Admission ROS BHS - HPI Chief Complaint: i am here to get rid of drinking and cocaine Allergies/Adverse Reactions: Allergies Allergy/AdvReac Type Severity Reaction Status Date / Time chlordiazepoxide HCl Allergy Rash Verified 04/10/17 15:39 [From Librium] History of Present Illness: this 57 years old male with alcohol and cocaine dependence ,seeking detox, multiple admissions in the past,last detox [facility] 01/11/17 to 01/15/17 syncope hiv weight loss Exam Limitations: No Limitations - Ebola screening Have you traveled outside of the country in the last 21 days: No Have you had contact with anyone from an Ebola affected area: No Have you been sick,other than usual withdrawal symptoms: No Do you have a fever: No - Review of Systems Constitutional: Loss of Appetite, Malaise, Night Sweats, Changes in sleep, Weakness, Unintentional Wgt. Loss EENT: reports: Tearing, Nose Congestion Respiratory: reports: No Symptoms reported Cardiac: reports: Palpitations GI: reports: Nausea, Poor Appetite, Vomiting, Abdominal cramping : reports: No Symptoms Reported, Other (bph) Musculoskeletal: reports: Back Pain, Muscle Pain Integumentary: reports: Dryness Neuro: reports: Headache, Tremors Endocrine: reports: No Symptoms Reported Hematology: reports: No Symptoms Reported Psychiatric: reports: other (bipolar disorder) Patient History - Patient Medical History Hx Anemia: Yes Hx Asthma: Yes (MDI) Hx Chronic Obstructive Pulmonary Disease (COPD): No Hx Cancer: No Hx Cardiac Disorders: No Hx Congestive Heart Failure: No Hx Hypertension: Yes (ON MED) Hx Hypercholesterolemia: No Hx Pacemaker: No HX Cerebrovascular Accident: No Hx Seizures: No Hx Dementia: No Hx Diabetes: No Hx Gastrointestinal Disorders: No Hx Liver Disease: Yes (CIRRHOSIS) Hx Genitourinary Disorders: No Hx Sexually Transmitted Disorders: Yes (genital herpes-ON VALTREX) Hx Renal Disease (ESRD): No Hx Thyroid Disease: No Hx Human Immunodeficiency Virus (HIV): Yes (ORAL THRUSH IN THE PAST; TRIZIVIR & VIRAMUNE) Hx Hepatitis C: Yes (tx with interferon 2013,DID NOT WORK.WILL BE TX. WITH HARVONI ) Hx Depression: Yes Hx Suicide Attempt: No Hx Bipolar Disorder: Yes ( ) Hx Schizophrenia: No Other Medical History: no suicidal,no homicidal - Patient Surgical History Past Surgical History: Yes Hx Neurologic Surgery: No Hx Cataract Extraction: No Hx Cardiac Surgery: No Hx Lung Surgery: No Hx Breast Surgery: No Hx Breast Biopsy: No Hx Abdominal Surgery: No Hx Appendectomy: No Hx Cholecystectomy: No Hx Genitourinary Surgery: No Hx Section: No Hx Orthopedic Surgery: No Other Surgical History: R WRIST SX in 1983 for a laceration Anesthesia Reaction: Yes - PPD History Previous Implant?: Yes Documented Results: Negative w/proof Date: 01/13/17 Results: 0 mm PPD to be Administered?: No - Smoking Cessation Smoking history: Current every day smoker Have you smoked in the past 12 months: Yes Aproximately how many cigarettes per day: 30 Hx Chewing Tobacco Use: No Initiated information on smoking cessation: Yes 'Breaking Loose' booklet given: 04/10/17 - Substances Abused Alcohol Route: Oral Frequency: Daily Amount used: LIQUOR- 2, BEER 4- 40oz Age of first use: 14 Date of Last Use: 04/10/17 Cocaine Route: Smoking Frequency: 1-2 times per week Amount used: $400 Age of first use: 31 Date of Last Use: 04/09/17 Family Disease History - Family Disease History Family Disease History: Diabetes: Mother, Respiratory: Sister, Other: Father ( addiction to heroin,) Admission Physical Exam [facility] - Vital Signs Vital Signs: Vital Signs - 24 hr 04/10/17 13:38 Temperature 96.6 F L Pulse Rate 75 Respiratory 20 Rate Blood Pressure 154/96 - Physical General Appearance: Yes: Moderate Distress, Tremorous, Irritable, Sweating, Anxious HEENTM: Yes: Normal ENT Inspection, ROB, Pharynx Normal, Other (oropharyngeal candidiasis) Respiratory: Yes: Lungs Clear, Normal Breath Sounds, No Respiratory Distress Neck: Yes: Within Normal Limits Breast: Yes: Within Normal Limits Cardiology: Yes: Within Normal Limits, Regular Rhythm, Regular Rate, S1, S2 Abdominal: Yes: Within Normal Limits, Normal Bowel Sounds, Non Tender, Soft Genitourinary: Yes: Within Normal Limits, Other (genital herpes history) Back: Yes: Normal Inspection, Muscle Spasm Musculoskeletal: Yes: Back pain, Joint Stiffness, Muscle Pain Extremities: Yes: Normal Range of Motion, Tremors, Other (callus both feet) Neurological: Yes: set builder II-XII NML intact, Alert, Motor Strength 5/5 Integumentary: Yes: Dry Lymphatic: Yes: Within Normal Limits - Diagnostic (1) Alcohol dependence with uncomplicated withdrawal Current Visit: No Status: Acute (2) Cocaine dependence Current Visit: No Status: Acute Qualifiers: Substance use status: uncomplicated Qualified Code(s): F14.20 - Cocaine dependence, uncomplicated (3) Nicotine dependence Current Visit: No Status: Acute Qualifiers: Nicotine product type: cigarettes Substance use status: in withdrawal Qualified Code(s): F17.213 - Nicotine dependence, cigarettes, with withdrawal (4) AIDS (acquired immune deficiency syndrome) Current Visit: No Status: Chronic (5) Asthma Current Visit: No Status: Chronic Qualifiers: Asthma severity: mild intermittent Asthma complication type: uncomplicated Qualified Code(s): J45.20 - Mild intermittent asthma, uncomplicated (6) Cirrhosis of liver Current Visit: No Status: Chronic Qualifiers: Ascites presence: without ascites (7) Hepatitis C Current Visit: No Status: Chronic Qualifiers: Viral hepatitis chronicity: chronic Hepatic coma status: without hepatic coma Qualified Code(s): B18.2 - Chronic viral hepatitis C (8) History of herpes genitalis Current Visit: Yes Status: Acute (9) Weight loss Current Visit: Yes Status: Acute (10) BPH (benign prostatic hypertrophy) Current Visit: No Status: Chronic Qualifiers: Lower urinary tract symptom presence: presence of symptoms unspecified (11) Schizoaffective disorder Current Visit: No Status: Chronic Qualifiers: Schizoaffective disorder type: bipolar Qualified Code(s): F25.0 - Schizoaffective disorder, bipolar type (12) Callus Current Visit: Yes Status: Acute Cleared for Admission BHS - Detox or Rehab S Level of Care: Medically Managed Detox Regimen/Protocol: Valium BHS Breath Alcohol Content Breath Alcohol Content: 0 Urine Drug Screen - Results Drug Screen Negative: No Urine Drug Screen Results: ANGIE-Cocaine
[2017-04-10] MEDS ORDERED: hydrOXYzine PAMOATE 25 MG CAPSULE (FP) PO PRN (15:21)
[2017-04-10] MEDS ORDERED: MENTHOL/PHENOL 1 EACH UD MM PRN (15:21)
[2017-04-10] MEDS ORDERED: LOPERAMIDE HCL 2 MG CAPSULE PO PRN (15:21)
[2017-04-10] MEDS ORDERED: chlordiazePOXIDE HCL 25 MG CAPSULE PO PRN (15:21)
[2017-04-10] MEDS ORDERED: P-EPHED 60MG/TRIPROLIDI 2.5MG TABLET PO PRN (15:21)
[2017-04-10] MEDS ORDERED: MAGNESIUM CITRATE 300 ML BOTTLE PO PRN (15:21)
[2017-04-10] MEDS ORDERED: MAGNESIUM HYDROX 2400MG/30ML ORAL SUSPENSION 30 ML CUP PO PRN (15:21)
[2017-04-10] MEDS ORDERED: MAG HYDROX/AL HYDROX/SIMETH 30 ML UNIT-DOSE CUP PO PRN (15:21)
[2017-04-10] MEDS ORDERED: IBUPROFEN 400 MG TABLET (FP) PO PRN (15:21)
[2017-04-10] MEDS ORDERED: ACETAMINOPHEN 325 MG TABLET (FP) PO PRN (15:21)
[2017-04-10] MEDS ORDERED: guaiFENesin/D-METHORPHAN HB 10 ML UNIT-DOSE CUPS PO PRN (15:21)
[2017-04-10] MEDS ORDERED: diphenhydrAMINE HCL 50 MG CAPSULE PO PRN (15:21)
[2017-04-10] MEDS ORDERED: diazePAM 5 MG TABLET PO PRN (15:26)
[2017-04-10] MEDS ORDERED: diazePAM 5 MG TABLET PO ONE (15:26)
[2017-04-10] MEDS ORDERED: ALBUTEROL SO4 6.7 GM HFA INHALER IH PRN (15:27)
[2017-04-10] MEDS: NICOTINE 21 MG/24 HOURS TOPICAL PATCH TD SCH (17:27)
[2017-04-10 20:08] LABS: URINE APPEARANCE CLEAR; URINE BILIRUBIN NEGATIVE (NEGATIVE); URINE COLOR YELLOW; URINE GLUCOSE (UA) NEGATIVE (NEGATIVE); URINE KETONE NEGATIVE (NEGATIVE); URINE LEUK ESTERASE NEGATIVE (NEGATIVE); URINE NITRITE NEGATIVE (NEGATIVE); URINE UROBILINOGEN NEGATIVE mg/dL (0.2-1.0)
[2017-04-10 20:14] LABS: URINE BLOOD 1+ (NEGATIVE); URINE PROTEIN 2+ (NEGATIVE)
[2017-04-10 20:20] LABS: GRANULAR CASTS 1 /lpf; URINE HYALINE CAST 3 /lpf; URINE MUCUS RARE; URINE RBC 1 /hpf (0-3); URINE WBC 9 /hpf (3-5)
[2017-04-10] MEDS: ABACAVIR PO SCH (22:06)
[2017-04-10] MEDS: diazePAM 5 MG TABLET PO SCH (22:06)
[2017-04-10] MEDS: ZIDOVUDINE PO SCH (22:06)
[2017-04-10] MEDS: TAMSULOSIN HCL 0.4 MG CAP.ER.24H (FP) PO SCH (22:06)
[2017-04-10] MEDS: LAMIVUDINE PO SCH (22:06)
[2017-04-10] MEDS: THIAMINE HCL 100 MG TABLET (FP) PO SCH (22:06)
[2017-04-10] MEDS: NEVIRAPINE 200 MG TABLET PO SCH (22:06)
[2017-04-11] MEDS: diazePAM 5 MG TABLET PO SCH ×4 (06:21→22:11)
--- NOTE | 2017-04-11 07:45 | PN ---
[facility] Progress Note Note: 'S NOTE AT 7:00AM: INFORMED THAT THE PT. WANTS DIEGO'S CATH. TO BE INSERTED H/O: HAVING BPH AND ON FLOMAX AND HAD DIEGO'S CATH. FOR 24 HRS. A WK AGO. HIS UROLOGIST RECOMMENDED TO KEEP THE DIEGO'S CATH. FOR A FEW DAYS BUT HE WANTED TO BE REMOVED AND IT WAS REMOVED WITHIN 24 HRS. O/E: THE PT. IS SAMUEL X 3, LOOKS UNCOMFORTABLE BUT NOT IN DISTRESS. HE IS ABLE TO URINATE SMALL AMOUNTS. HE CLAIMS THAT HE IS UNABLE TO SLEEP DUE TO URINARY PROBLEMS. S/E: ABD: SOFT, MILD TENDERNESS IN THE URINARY BLADDER REGION. URINARY BLADDER DOES NOT SEEM TO BE DISTENDED SIGNIFICANTLY. NO HSM, B.S.+ CVS: -JVD, NL HEART SOUNDS, NO MURMURS LUNGS: VESICULAR BREATH SOUNDS, NO RALES, NO RHONCHI IMPRESSION: URINARY RETENTION - SEC. TO: BPH AND ? CYSTITIS PLANS: -SINCE THE PT. IS ABLE TO URINATE (WITNESSED BY ME) SLOWLY, ENCOURAGED TO DRINK CRANBERRY JUICE (ORDERED) AND WATER SMALL AMOUNTS FREQUENTLY. -THE PT. WAS TOLD THAT IF HE STILL CANNOT VOID, WILL CONSIDER INSERTION OF DIEGO'S CATH. -EVENTS WERE ENDORSED TO DR. GONZALEZ FOR F/U - NEEDED. PROVIDER: AJIT BRISCOE MD
--- NOTE | 2017-04-11 08:36 | CONSULT ---
[facility] Psychiatric Consult - Data Date of interview: 04/11/17 Admission source: [facility] Identifying data: Corey is 57 yeras old male with hbistory of Bipolar disorder , history of psychiatric admissions, intoxicated wiuth: Alcohol, Opioids, Cannabis, Xanax anmd Nicotine Substance Abuse History: - Smoking Cessation. Smoking history: Current every day smoker. Have you smoked in the past 12 months: Yes. Aproximately how many cigarettes per day: 30. Hx Chewing Tobacco Use: No. Initiated information on smoking cessation: Yes. 'Breaking Loose' booklet given: 04/10/17. - Substances Abused. Alcohol. Route: Oral. Frequency: Daily. Amount used: LIQUOR- 2, BEER 4- 40oz. Age of first use: 14. Date of Last Use: 04/10/17. * * Cocaine. Route: Smoking. Frequency: 1-2 times per week. Amount used: $400. Age of first use: 31. Date of Last Use: 04/09/17 Medical History: Weight loss history, AIFS/HIV+, MBPH, Liver Cirrhosis, Hep C+, HTN Psychiatric History: Patient reprots history of Bipolar disorder, Schizoaffective disoirder, reports ADHD history, unclear past psychiatgric hospitalization history, rep[orts taking prior to admission: Depakote 500mg poqhs, 250mg po mqhs. Rispedal 2mg po qhs. Seroquel 100mg pom qhs Physical/Sexual Abuse/Trauma History: Denies Additional Comment: Depakote 500mg poqhs, 250mg po mqhs. Rispedal 2mg po qhs. Seroquel 100mg pom qhs Mental Status Exam - Mental Status Exam Alert and Oriented to: Person Cognitive Function: Fair Patient Appearance: Unkempt Mood: Sad Affect: Flat Patient Behavior: Sedated Speech Pattern: Delayed Voice Loudness: Mildly Soft/Quiet Thought Process: Circumstantial Thought Disorder: Being Controlled Hallucinations: Denies Suicidal Ideation: Denies Homicidal Ideation: Denies Insight/Judgement: Fair Sleep: Difficulty falling asleep Appetite: Weight loss Muscle strength/Tone: Mild Hypotonicity Gait/Station: Shuffling Additional Comments: Depakote 500mg poqhs, 250mg po mqhs. Rispedal 2mg po qhs. Seroquel 100mg pom qhs Psychiatric Findings - Problem List ([place] 1, 2,3) (1) ADHD (attention deficit hyperactivity disorder) Current Visit: No Status: Acute (2) Alcohol dependence with uncomplicated withdrawal Current Visit: No Status: Acute (3) Cocaine dependence Current Visit: No Status: Acute Qualifiers: Substance use status: uncomplicated Qualified Code(s): F14.20 - Cocaine dependence, uncomplicated (4) Marijuana dependence Current Visit: No Status: Acute (5) Bipolar II disorder Current Visit: No Status: Chronic (6) Cirrhosis of liver Current Visit: No Status: Chronic Qualifiers: Ascites presence: without ascites (7) Schizoaffective disorder Current Visit: No Status: Chronic Qualifiers: Schizoaffective disorder type: bipolar Qualified Code(s): F25.0 - Schizoaffective disorder, bipolar type - Initial Treatment Plan Initial Treatment Plan: Depakote 500mg poqhs, 250mg po mqhs. Rispedal 2mg po qhs. Seroquel 100mg pom qhs. Blood Depakote level
[2017-04-11 10:07] LABS: MCH 37.7 pg (25.7-33.7); MCHC 34.5 g/dl (32.0-35.9); MEAN CELL VOLUME 109.1 fl (80-96); MEAN PLT VOLUME 9.3 fl (7.5-11.1); PLATELET COUNT 203 K/MM3 (134-434); RDW 13.4 % (11.9-15.9); WHITE BLOOD COUNT 5.5 K/mm3 (4.0-10.0)
[2017-04-11] MEDS: ZIDOVUDINE PO SCH ×2 (10:17→22:12)
[2017-04-11] MEDS: LAMIVUDINE PO SCH ×2 (10:17→22:12)
[2017-04-11] MEDS: ABACAVIR PO SCH ×2 (10:17→22:12)
[2017-04-11] MEDS: NEVIRAPINE 200 MG TABLET PO SCH ×2 (10:17→22:12)
[2017-04-11] MEDS: amLODIPine BESYLATE 10 MG TABLET (FP) PO SCH (10:17)
[2017-04-11] MEDS: PRENATAL VITAMINS W/ FOLIC ACID TABLET (FP) PO SCH (10:17)
[2017-04-11] MEDS: valACYclovir HCL 500 MG TABLET (FP) PO SCH (10:17)
[2017-04-11] MEDS: NICOTINE 21 MG/24 HOURS TOPICAL PATCH TD SCH (10:18)
[2017-04-11 10:28] LABS: ALBUMIN 3.4 g/dl (3.4-5.0); ALK PHOS 99 U/L (45-117); ANION GAP 6 (8-16); BILIRUBIN,TOTAL 0.3 mg/dL (0.2-1.0); CALCIUM 8.6 mg/dL (8.5-10.1); CO2 26 mmol/L (21-32); GLUCOSE,RANDOM 110 mg/dL (74-106); SGOT/AST 23 U/L (15-37); SGPT/ALT 29 U/L (12-78); TOT PROT 6.9 g/dl (6.4-8.2)
[2017-04-11] MEDS: FLUCONAZOLE 100 MG TABLET (UD) PO SCH (11:09)
--- NOTE | 2017-04-11 11:52 | PN ---
[facility] CIWA - CIWA Score Nausea/Vomitin-No Nausea/No Vomiting Muscle Tremors: 4-Moderate,w/Arms Extend Anxiety: 4-Mod. Anxious/Guarded Agitation: 4-Moderately Restless Paroxysmal Sweats: 3 Orientation: 0-Oriented Tacttile Disturbances: 3-Moderate Itch/Numb/Burn Auditory Disturbances: 0-None Visual Disturbances: 0-None Headache: 0-None Present CIWA-Ar Total Score: 18 S Progress Note (SOAP) Subjective: SWEATS,ANXIETY,TREMORS, FATIGUE. Objective: 04/11/17 11:52 Vital Signs Temperature 97.3 F L 04/11/17 10:36 Pulse Rate 66 04/11/17 10:36 Respiratory Rate 18 04/11/17 10:36 Blood Pressure 150/93 04/11/17 10:36 O2 Sat by Pulse Oximetry (%) Laboratory Last Values WBC 5.5 K/mm3 (4.0-10.0) 04/11/17 06:30 RBC 3.96 M/mm3 (4.00-5.60) L 04/11/17 06:30 Hgb 14.9 GM/dL (11.7-16.9) 04/11/17 06:30 Hct 43.2 % (35.4-49) 04/11/17 06:30 MCV 109.1 fl (80-96) H 04/11/17 06:30 MCH 37.7 pg (25.7-33.7) H 04/11/17 06:30 MCHC 34.5 g/dl (32.0-35.9) 04/11/17 06:30 RDW 13.4 % (11.9-15.9) D 04/11/17 06:30 Plt Count 203 K/MM3 (134-434) 04/11/17 06:30 MPV 9.3 fl (7.5-11.1) 04/11/17 06:30 Sodium 139 mmol/L (136-145) 04/11/17 06:30 Potassium 4.0 mmol/L (3.5-5.1) 04/11/17 06:30 Chloride 107 mmol/L (98-107) 04/11/17 06:30 Carbon Dioxide 26 mmol/L (21-32) 04/11/17 06:30 Anion Gap 6 (8-16) L 04/11/17 06:30 BUN 23 mg/dL (7-18) H 04/11/17 06:30 Creatinine 1.0 mg/dL (0.7-1.3) D 04/11/17 06:30 Creat Clearance w eGFR > 60 (>60) 04/11/17 06:30 Random Glucose 110 mg/dL (74-106) H D 04/11/17 06:30 Calcium 8.6 mg/dL (8.5-10.1) 04/11/17 06:30 Total Bilirubin 0.3 mg/dL (0.2-1.0) D 04/11/17 06:30 AST 23 U/L (15-37) D 04/11/17 06:30 ALT 29 U/L (12-78) 04/11/17 06:30 Alkaline Phosphatase 99 U/L (45-117) 04/11/17 06:30 Total Protein 6.9 g/dl (6.4-8.2) 04/11/17 06:30 Albumin 3.4 g/dl (3.4-5.0) 04/11/17 06:30 Urine Color Yellow 04/10/17 16:25 Urine Appearance Clear 04/10/17 16:25 Urine pH 5.0 (5.0-8.0) 04/10/17 16:25 Ur Specific [place] >= 1.030 (1.005-1.025) H 04/10/17 16:25 Urine Protein 2+ (NEGATIVE) H 04/10/17 16:25 Urine Glucose (UA) Negative (NEGATIVE) 04/10/17 16:25 Urine Ketones Negative (NEGATIVE) 04/10/17 16:25 Urine Blood 1+ (NEGATIVE) H 04/10/17 16:25 Urine Nitrite Negative (NEGATIVE) 04/10/17 16:25 Urine Bilirubin Negative (NEGATIVE) 04/10/17 16:25 Urine Urobilinogen Negative mg/dL (0.2-1.0) 04/10/17 16:25 Ur Leukocyte Esterase Negative (NEGATIVE) 04/10/17 16:25 Urine RBC 1 /hpf (0-3) 04/10/17 16:25 Urine WBC 9 /hpf (3-5) 04/10/17 16:25 Ur Epithelial Cells Rare /hpf (FEW) 04/10/17 16:25 Hyaline Casts 3 /lpf 04/10/17 16:25 Granular Casts 1 /lpf 04/10/17 16:25 Urine Mucus Rare 04/10/17 16:25 LABS NOTED Assessment: 04/11/17 11:52 WITHDRAWAL SX Plan: CONTINUE DETOX
--- NOTE | 2017-04-11 12:47 | EKG ---
Test Reason : Blood Pressure : / mmHG Vent. Rate : 061 BPM Atrial Rate : 061 BPM P-R Int : 130 ms QRS Dur : 092 ms QT Int : 450 ms P-R-T Axes : 053 050 023 degrees QTc Int : 453 ms NORMAL SINUS RHYTHM WITH SINUS ARRHYTHMIA VOLTAGE CRITERIA FOR LEFT VENTRICULAR HYPERTROPHY CANNOT RULE OUT SEPTAL INFARCT , AGE UNDETERMINED ABNORMAL ECG WHEN COMPARED WITH ECG OF 11-JAN-2017 14:24, NO SIGNIFICANT CHANGE WAS FOUND Confirmed by KARLEE KIMBALL MD ([id number]) on 04/11/2017 12:47:01 PM Referred By: Confirmed By:KARLEE KIMBALL MD
[2017-04-11 12:48] LABS: ANISOCYTOSIS 2+
[2017-04-11 12:49] LABS: TEAR DROP CELLS 1+
--- NOTE | 2017-04-11 17:38 | PN ---
[facility] Progress Note Note: CALLED THIS EVENING BY NURSE TO SEE PT C/O DYSURIA AND LOWER ABDOMINAL DISCOMFORT. PT HAS A HX BPH ON FLOMAX AND PT DISCLOSED WAS GIVEN ANTIBIOTICS LAST WEEK. HOME MED LIST WITH BACTRIM I TAB BID DATED 04/05/17 X 7 DAYS. BACTRIM DS TX NOT COMPLETED. PT IS ABLE TO URINATE BUT STATES PAIN ON URINATION. NO C/O URINARY DISCOMFORT THIS MORNING ROUND. ABDOMEN:SOFT,MILD TO MODERATE TENDERNESS TO PALPATE. NO BLADDER DISTENSION NOTED. B S (+). OUTPUT:600 ML URINE OUTPUT IN URINAL NO KUSH BLOOD NOTED PLAN: RESTART BACTRIM DS 1 TAB PO BID TYLENOL OR MOTRIN FOR PAIN CONTINUE CRANBERRY JUICE DRINK TRANSFER TO [facility] IF NOT GETTING BETTER.
[2017-04-11] MEDS: DIVALPROEX SODIUM 500 MG TABLET E.C. PO SCH (22:11)
[2017-04-11] MEDS: SULFAMETHOXAZOLE/TRIMETHOPRIM 800MG/160MG D.S. TABLET PO SCH (22:11)
[2017-04-11] MEDS: TAMSULOSIN HCL 0.4 MG CAP.ER.24H (FP) PO SCH (22:11)
[2017-04-11] MEDS: QUEtiapine FUMARATE 100 MG TABLET (FP) PO SCH (22:11)
[2017-04-11] MEDS: risperiDONE 2 MG TABLET PO SCH (22:11)
[2017-04-11] MEDS: THIAMINE HCL 100 MG TABLET (FP) PO SCH (22:11)
[2017-04-12] MEDS: diazePAM 5 MG TABLET PO SCH ×2 (10:16→22:08)
[2017-04-12] MEDS: NEVIRAPINE 200 MG TABLET PO SCH ×2 (10:16→22:07)
[2017-04-12] MEDS: ABACAVIR PO SCH ×2 (10:16→22:07)
[2017-04-12] MEDS: FLUCONAZOLE 100 MG TABLET (UD) PO SCH (10:16)
[2017-04-12] MEDS: valACYclovir HCL 500 MG TABLET (FP) PO SCH (10:16)
[2017-04-12] MEDS: ZIDOVUDINE PO SCH ×2 (10:16→22:07)
[2017-04-12] MEDS: LAMIVUDINE PO SCH ×2 (10:16→22:07)
[2017-04-12] MEDS: amLODIPine BESYLATE 10 MG TABLET (FP) PO SCH (10:16)
[2017-04-12] MEDS: SULFAMETHOXAZOLE/TRIMETHOPRIM 800MG/160MG D.S. TABLET PO SCH ×2 (10:16→22:08)
[2017-04-12] MEDS: PRENATAL VITAMINS W/ FOLIC ACID TABLET (FP) PO SCH (10:17)
[2017-04-12] MEDS: NICOTINE 21 MG/24 HOURS TOPICAL PATCH TD SCH (10:17)
--- NOTE | 2017-04-12 10:17 | PN ---
[facility] CIWA - CIWA Score Nausea/Vomitin-No Nausea/No Vomiting Muscle Tremors: 3 Anxiety: 4-Mod. Anxious/Guarded Agitation: 3 Paroxysmal Sweats: 3 Orientation: 0-Oriented Tacttile Disturbances: 0-None Auditory Disturbances: 0-None Visual Disturbances: 0-None Headache: 0-None Present CIWA-Ar Total Score: 13 S Progress Note (SOAP) Subjective: PT WAS SLEEPING IN BED AT ROUNDS. EASILY AROUSABLE. DENIES ANY ABDOMINAL PAIN AT THIS TIME. Objective: 04/12/17 10:14 Vital Signs Temperature 96.9 F L 04/12/17 09:47 Pulse Rate 92 H 04/12/17 09:47 Respiratory Rate 18 04/12/17 09:47 Blood Pressure 149/97 04/12/17 09:47 O2 Sat by Pulse Oximetry (%) Laboratory Last Values WBC 5.5 K/mm3 (4.0-10.0) 04/11/17 06:30 RBC 3.96 M/mm3 (4.00-5.60) L 04/11/17 06:30 Hgb 14.9 GM/dL (11.7-16.9) 04/11/17 06:30 Hct 43.2 % (35.4-49) 04/11/17 06:30 MCV 109.1 fl (80-96) H 04/11/17 06:30 MCH 37.7 pg (25.7-33.7) H 04/11/17 06:30 MCHC 34.5 g/dl (32.0-35.9) 04/11/17 06:30 RDW 13.4 % (11.9-15.9) D 04/11/17 06:30 Plt Count 203 K/MM3 (134-434) 04/11/17 06:30 MPV 9.3 fl (7.5-11.1) 04/11/17 06:30 Anisocytosis 2+ 04/11/17 06:30 Macrocytosis 2+ 04/11/17 06:30 Tear Drop Cells 1+ 04/11/17 06:30 Sodium 139 mmol/L (136-145) 04/11/17 06:30 Potassium 4.0 mmol/L (3.5-5.1) 04/11/17 06:30 Chloride 107 mmol/L (98-107) 04/11/17 06:30 Carbon Dioxide 26 mmol/L (21-32) 04/11/17 06:30 Anion Gap 6 (8-16) L 04/11/17 06:30 BUN 23 mg/dL (7-18) H 04/11/17 06:30 Creatinine 1.0 mg/dL (0.7-1.3) D 04/11/17 06:30 Creat Clearance w eGFR > 60 (>60) 04/11/17 06:30 Random Glucose 110 mg/dL (74-106) H D 04/11/17 06:30 Calcium 8.6 mg/dL (8.5-10.1) 04/11/17 06:30 Total Bilirubin 0.3 mg/dL (0.2-1.0) D 04/11/17 06:30 AST 23 U/L (15-37) D 04/11/17 06:30 ALT 29 U/L (12-78) 04/11/17 06:30 Alkaline Phosphatase 99 U/L (45-117) 04/11/17 06:30 Total Protein 6.9 g/dl (6.4-8.2) 04/11/17 06:30 Albumin 3.4 g/dl (3.4-5.0) 04/11/17 06:30 Urine Color Yellow 04/10/17 16:25 Urine Appearance Clear 04/10/17 16:25 Urine pH 5.0 (5.0-8.0) 04/10/17 16:25 Ur Specific [place] >= 1.030 (1.005-1.025) H 04/10/17 16:25 Urine Protein 2+ (NEGATIVE) H 04/10/17 16:25 Urine Glucose (UA) Negative (NEGATIVE) 04/10/17 16:25 Urine Ketones Negative (NEGATIVE) 04/10/17 16:25 Urine Blood 1+ (NEGATIVE) H 04/10/17 16:25 Urine Nitrite Negative (NEGATIVE) 04/10/17 16:25 Urine Bilirubin Negative (NEGATIVE) 04/10/17 16:25 Urine Urobilinogen Negative mg/dL (0.2-1.0) 04/10/17 16:25 Ur Leukocyte Esterase Negative (NEGATIVE) 04/10/17 16:25 Urine RBC 1 /hpf (0-3) 04/10/17 16:25 Urine WBC 9 /hpf (3-5) 04/10/17 16:25 Ur Epithelial Cells Rare /hpf (FEW) 04/10/17 16:25 Hyaline Casts 3 /lpf 04/10/17 16:25 Granular Casts 1 /lpf 04/10/17 16:25 Urine Mucus Rare 04/10/17 16:25 RPR Titer Nonreactive (NONREACTIVE) 04/11/17 06:30 Assessment: 04/12/17 10:16 WITHDRAWAL SX BPH R/O CYSTITIS Plan: CONTINUE DETOX MONITOR INTAKE/OUTPUT/PT CONDITION.
[2017-04-12] MEDS: THIAMINE HCL 100 MG TABLET (FP) PO SCH (22:08)
[2017-04-12] MEDS: TAMSULOSIN HCL 0.4 MG CAP.ER.24H (FP) PO SCH (22:08)
[2017-04-12] MEDS: DIVALPROEX SODIUM 500 MG TABLET E.C. PO SCH (22:08)
[2017-04-12] MEDS: QUEtiapine FUMARATE 100 MG TABLET (FP) PO SCH (22:08)
[2017-04-12] MEDS: risperiDONE 2 MG TABLET PO SCH (22:08)
--- NOTE | 2017-04-13 09:28 | PN ---
[facility] Progress Note (SOAP) Subjective: PT SLEEPING IN BED BUT EASILY AROUSABLE AND STATES URINATING WELL WITH NO DIFFICULTY NOW ON ROUNDS. Objective: 04/13/17 09:26 Vital Signs Temperature 96.2 F L 04/13/17 05:49 Pulse Rate 93 H 04/13/17 05:49 Respiratory Rate 16 04/13/17 05:49 Blood Pressure 145/97 04/13/17 05:49 O2 Sat by Pulse Oximetry (%) Laboratory Last Values WBC 5.5 K/mm3 (4.0-10.0) 04/11/17 06:30 RBC 3.96 M/mm3 (4.00-5.60) L 04/11/17 06:30 Hgb 14.9 GM/dL (11.7-16.9) 04/11/17 06:30 Hct 43.2 % (35.4-49) 04/11/17 06:30 MCV 109.1 fl (80-96) H 04/11/17 06:30 MCH 37.7 pg (25.7-33.7) H 04/11/17 06:30 MCHC 34.5 g/dl (32.0-35.9) 04/11/17 06:30 RDW 13.4 % (11.9-15.9) D 04/11/17 06:30 Plt Count 203 K/MM3 (134-434) 04/11/17 06:30 MPV 9.3 fl (7.5-11.1) 04/11/17 06:30 Anisocytosis 2+ 04/11/17 06:30 Macrocytosis 2+ 04/11/17 06:30 Tear Drop Cells 1+ 04/11/17 06:30 Sodium 139 mmol/L (136-145) 04/11/17 06:30 Potassium 4.0 mmol/L (3.5-5.1) 04/11/17 06:30 Chloride 107 mmol/L (98-107) 04/11/17 06:30 Carbon Dioxide 26 mmol/L (21-32) 04/11/17 06:30 Anion Gap 6 (8-16) L 04/11/17 06:30 BUN 23 mg/dL (7-18) H 04/11/17 06:30 Creatinine 1.0 mg/dL (0.7-1.3) D 04/11/17 06:30 Creat Clearance w eGFR > 60 (>60) 04/11/17 06:30 Random Glucose 110 mg/dL (74-106) H D 04/11/17 06:30 Calcium 8.6 mg/dL (8.5-10.1) 04/11/17 06:30 Total Bilirubin 0.3 mg/dL (0.2-1.0) D 04/11/17 06:30 AST 23 U/L (15-37) D 04/11/17 06:30 ALT 29 U/L (12-78) 04/11/17 06:30 Alkaline Phosphatase 99 U/L (45-117) 04/11/17 06:30 Total Protein 6.9 g/dl (6.4-8.2) 04/11/17 06:30 Albumin 3.4 g/dl (3.4-5.0) 04/11/17 06:30 Urine Color Yellow 04/10/17 16:25 Urine Appearance Clear 04/10/17 16:25 Urine pH 5.0 (5.0-8.0) 04/10/17 16:25 Ur Specific [place] >= 1.030 (1.005-1.025) H 04/10/17 16:25 Urine Protein 2+ (NEGATIVE) H 04/10/17 16:25 Urine Glucose (UA) Negative (NEGATIVE) 04/10/17 16:25 Urine Ketones Negative (NEGATIVE) 04/10/17 16:25 Urine Blood 1+ (NEGATIVE) H 04/10/17 16:25 Urine Nitrite Negative (NEGATIVE) 04/10/17 16:25 Urine Bilirubin Negative (NEGATIVE) 04/10/17 16:25 Urine Urobilinogen Negative mg/dL (0.2-1.0) 04/10/17 16:25 Ur Leukocyte Esterase Negative (NEGATIVE) 04/10/17 16:25 Urine RBC 1 /hpf (0-3) 04/10/17 16:25 Urine WBC 9 /hpf (3-5) 04/10/17 16:25 Ur Epithelial Cells Rare /hpf (FEW) 04/10/17 16:25 Hyaline Casts 3 /lpf 04/10/17 16:25 Granular Casts 1 /lpf 04/10/17 16:25 Urine Mucus Rare 04/10/17 16:25 Valproic Acid < 3.000 ug/ml (50-100) L 04/12/17 06:00 RPR Titer Nonreactive (NONREACTIVE) 04/11/17 06:30 Intake & Output 04/12/17 04/13/17 04/13/17 23:59 07:59 15:59 Intake Total 412 Output Total 250 625 Balance 162 -625 Intake: Oral 412 Output: Urine 250 625 Void 250 625 Other: Voiding Method Urinal Urinal # Unmeasured Voids Void 2 Assessment: 04/13/17 09:27 WITHDRAWALS X Plan: CONTINUE DETOX
[2017-04-13] MEDS: valACYclovir HCL 500 MG TABLET (FP) PO SCH (10:08)
[2017-04-13] MEDS: ABACAVIR PO SCH ×2 (10:08→22:09)
[2017-04-13] MEDS: PRENATAL VITAMINS W/ FOLIC ACID TABLET (FP) PO SCH (10:08)
[2017-04-13] MEDS: FLUCONAZOLE 100 MG TABLET (UD) PO SCH (10:08)
[2017-04-13] MEDS: NEVIRAPINE 200 MG TABLET PO SCH ×2 (10:08→22:09)
[2017-04-13] MEDS: LAMIVUDINE PO SCH ×2 (10:08→22:09)
[2017-04-13] MEDS: SULFAMETHOXAZOLE/TRIMETHOPRIM 800MG/160MG D.S. TABLET PO SCH ×2 (10:08→22:09)
[2017-04-13] MEDS: amLODIPine BESYLATE 10 MG TABLET (FP) PO SCH (10:08)
[2017-04-13] MEDS: ZIDOVUDINE PO SCH ×2 (10:08→22:09)
[2017-04-13] MEDS: NICOTINE 21 MG/24 HOURS TOPICAL PATCH TD SCH (10:09)
[2017-04-13] MEDS: diazePAM 5 MG TABLET PO SCH ×3 (10:09→22:10)
[2017-04-13 16:18] LABS: URINE APPEARANCE CLEAR; URINE BILIRUBIN NEGATIVE (NEGATIVE); URINE BLOOD NEGATIVE (NEGATIVE); URINE COLOR LTYELLOW; URINE GLUCOSE (UA) NEGATIVE (NEGATIVE); URINE KETONE NEGATIVE (NEGATIVE); URINE LEUK ESTERASE NEGATIVE (NEGATIVE); URINE NITRITE NEGATIVE (NEGATIVE); URINE PROTEIN NEGATIVE (NEGATIVE); URINE UROBILINOGEN NEGATIVE mg/dL (0.2-1.0)
[2017-04-13] MEDS: risperiDONE 2 MG TABLET PO SCH (22:09)
[2017-04-13] MEDS: THIAMINE HCL 100 MG TABLET (FP) PO SCH (22:09)
[2017-04-13] MEDS: TAMSULOSIN HCL 0.4 MG CAP.ER.24H (FP) PO SCH (22:09)
[2017-04-13] MEDS: DIVALPROEX SODIUM 500 MG TABLET E.C. PO SCH (22:09)
[2017-04-13] MEDS: QUEtiapine FUMARATE 100 MG TABLET (FP) PO SCH (22:09)
[2017-04-14 09:27] VITALS: BP 145/98; PULSE 83; TEMP 96.7
[2017-04-14] MEDS ORDERED: diazePAM 5 MG TABLET PO SCH (10:00)
--- NOTE | 2017-04-14 10:01 | DS ---
[facility] Detox Discharge Summary Admission Date: 04/10/17 Discharge Date: 04/14/17 - History Present History: Alcohol Dependence Additional Comments: DETOX COMPLETED. PT REFERRED TO REHAB. Pertinent Past History: HIV+/AIDS ASTHMA GENITAL HERPES BPH ?CYSTITIS HTN HEP C CIRRHOSIS LIVER ANEMIA - Physical Exam Results Vital Signs: Vital Signs Temperature 96.7 F L 04/14/17 09:26 Pulse Rate 83 04/14/17 09:26 Respiratory Rate 18 04/14/17 09:26 Blood Pressure 145/98 04/14/17 09:26 O2 Sat by Pulse Oximetry (%) Pertinent Admission Physical Exam Findings: WITHDRAWAL SX Laboratory Last Values WBC 5.5 K/mm3 (4.0-10.0) 04/11/17 06:30 RBC 3.96 M/mm3 (4.00-5.60) L 04/11/17 06:30 Hgb 14.9 GM/dL (11.7-16.9) 04/11/17 06:30 Hct 43.2 % (35.4-49) 04/11/17 06:30 MCV 109.1 fl (80-96) H 04/11/17 06:30 MCH 37.7 pg (25.7-33.7) H 04/11/17 06:30 MCHC 34.5 g/dl (32.0-35.9) 04/11/17 06:30 RDW 13.4 % (11.9-15.9) D 04/11/17 06:30 Plt Count 203 K/MM3 (134-434) 04/11/17 06:30 MPV 9.3 fl (7.5-11.1) 04/11/17 06:30 Anisocytosis 2+ 04/11/17 06:30 Macrocytosis 2+ 04/11/17 06:30 Tear Drop Cells 1+ 04/11/17 06:30 Sodium 139 mmol/L (136-145) 04/11/17 06:30 Potassium 4.0 mmol/L (3.5-5.1) 04/11/17 06:30 Chloride 107 mmol/L (98-107) 04/11/17 06:30 Carbon Dioxide 26 mmol/L (21-32) 04/11/17 06:30 Anion Gap 6 (8-16) L 04/11/17 06:30 BUN 23 mg/dL (7-18) H 04/11/17 06:30 Creatinine 1.0 mg/dL (0.7-1.3) D 04/11/17 06:30 Creat Clearance w eGFR > 60 (>60) 04/11/17 06:30 Random Glucose 110 mg/dL (74-106) H D 04/11/17 06:30 Calcium 8.6 mg/dL (8.5-10.1) 04/11/17 06:30 Total Bilirubin 0.3 mg/dL (0.2-1.0) D 04/11/17 06:30 AST 23 U/L (15-37) D 04/11/17 06:30 ALT 29 U/L (12-78) 04/11/17 06:30 Alkaline Phosphatase 99 U/L (45-117) 04/11/17 06:30 Total Protein 6.9 g/dl (6.4-8.2) 04/11/17 06:30 Albumin 3.4 g/dl (3.4-5.0) 04/11/17 06:30 Urine Color Ltyellow 04/13/17 10:15 Urine Appearance Clear 04/13/17 10:15 Urine pH 6.0 (5.0-8.0) 04/13/17 10:15 Ur Specific [place] 1.020 (1.005-1.025) 04/13/17 10:15 Urine Protein Negative (NEGATIVE) 04/13/17 10:15 Urine Glucose (UA) Negative (NEGATIVE) 04/13/17 10:15 Urine Ketones Negative (NEGATIVE) 04/13/17 10:15 Urine Blood Negative (NEGATIVE) 04/13/17 10:15 Urine Nitrite Negative (NEGATIVE) 04/13/17 10:15 Urine Bilirubin Negative (NEGATIVE) 04/13/17 10:15 Urine Urobilinogen Negative mg/dL (0.2-1.0) 04/13/17 10:15 Ur Leukocyte Esterase Negative (NEGATIVE) 04/13/17 10:15 Urine RBC 1 /hpf (0-3) 04/10/17 16:25 Urine WBC 9 /hpf (3-5) 04/10/17 16:25 Ur Epithelial Cells Rare /hpf (FEW) 04/10/17 16:25 Hyaline Casts 3 /lpf 04/10/17 16:25 Granular Casts 1 /lpf 04/10/17 16:25 Urine Mucus Rare 04/10/17 16:25 Valproic Acid < 3.000 ug/ml (50-100) L 04/12/17 06:00 RPR Titer Nonreactive (NONREACTIVE) 04/11/17 06:30 - Treatment Hospital Course: Detox Protocol Followed, Detoxed Safely, Responded well, Discharged Condition Good, Rehab Referral Accepted Patient has Accepted a Rehab Referral to: [facility] [address] [place] [address] - [facility] Discharge Medications: Ambulatory Orders Albuterol Sulfate Inhaler - [Ventolin HFA Inhaler -] 1 puff IH Q4H PRN #1 inhaler 01/26/16 Amlodipine Besylate [Norvasc -] 10 mg PO DAILY #30 tablet 01/26/16 Nevirapine [Viramune -] 200 mg PO BID #60 tablet 01/26/16 Fluticasone/Salmeterol [Advair 250-50 Diskus] 1 each IH BID #1 disk.w.dev Valacyclovir HCl [Valtrex -] 500 mg PO DAILY #30 tablet 02/12/16 Abacavir/Lamivudine/Zidovudine [Trizivir Tablet -] 1 tab PO BID 03/24/16 Divalproex Sodium 500 mg PO HS 01/11/17 Hydrocortisone 1% Cream [Hytone 1% Cream -] 1 applic TP BID 01/11/17 Risperidone [Risperdal] 2 mg PO HS 01/11/17 Tamsulosin HCl [Flomax -] 0.4 mg PO HS 01/11/17 Quetiapine Fumarate [Seroquel] 100 mg PO HS #30 tablet 01/12/17 Divalproex Sodium [Depakote] 250 mg PO HS #30 tab 01/13/17 Risperidone [Risperdal -] 2 mg PO HS #30 tablet 01/13/17 Divalproex [Depakote -] 250 mg PO BID #60 tablet.ec 04/11/17 Quetiapine Fumarate [Seroquel] 100 mg PO HS #30 tablet 04/11/17 Risperidone [Risperdal -] 2 mg PO HS #30 tablet 04/11/17 Fluconazole [Diflucan -] 100 mg PO DAILY 04/14/17 Sulfamethoxazole/Trimethoprim [Bactrim Ds -] 1 tab PO DAILY 04/14/17 - Diagnosis (1) Alcohol dependence with uncomplicated withdrawal Status: Acute (2) Nicotine dependence Status: Acute Qualifiers: Nicotine product type: cigarettes Substance use status: in withdrawal Qualified Code(s): F17.213 - Nicotine dependence, cigarettes, with withdrawal (3) AIDS (acquired immune deficiency syndrome) Status: Chronic (4) Asthma Status: Chronic Qualifiers: Asthma severity: mild intermittent Asthma complication type: uncomplicated Qualified Code(s): J45.20 - Mild intermittent asthma, uncomplicated (5) BPH (benign prostatic hypertrophy) Status: Chronic Qualifiers: Lower urinary tract symptom presence: presence of symptoms unspecified (6) Cirrhosis of liver Status: Chronic Qualifiers: Ascites presence: without ascites (7) Hepatitis C Status: Chronic Qualifiers: Viral hepatitis chronicity: chronic Hepatic coma status: without hepatic coma Qualified Code(s): B18.2 - Chronic viral hepatitis C (8) Hypertension Status: Chronic Qualifiers: Hypertension type: essential hypertension Qualified Code(s): I10 - Essential (primary) hypertension - AMA Did Patient Leave Against Medical Advice: No
[2017-04-14] MEDS: NEVIRAPINE 200 MG TABLET PO SCH (10:13)
[2017-04-14] MEDS: ABACAVIR PO SCH (10:13)
[2017-04-14] MEDS: ZIDOVUDINE PO SCH (10:13)
[2017-04-14] MEDS: valACYclovir HCL 500 MG TABLET (FP) PO SCH (10:13)
[2017-04-14] MEDS: LAMIVUDINE PO SCH (10:13)
[2017-04-14] MEDS: SULFAMETHOXAZOLE/TRIMETHOPRIM 800MG/160MG D.S. TABLET PO SCH (10:14)
[2017-04-14] MEDS: FLUCONAZOLE 100 MG TABLET (UD) PO SCH (10:14)
[2017-04-14] MEDS: NICOTINE 21 MG/24 HOURS TOPICAL PATCH TD SCH (10:14)
[2017-04-14] MEDS: PRENATAL VITAMINS W/ FOLIC ACID TABLET (FP) PO SCH (10:14)
[2017-04-14] MEDS: amLODIPine BESYLATE 10 MG TABLET (FP) PO SCH (10:14)
== END 2017-04-14 12:06 | disposition other institution (70) | DRG 774 ==
LOC: YASAS 12:25 → Y3N 15:40
PROVIDERS: ADMIT Internal Medicine; ATTEND Internal Medicine
PROC: HZ2ZZZZ Detoxification Services for Substance Abuse Treatment (ICD-10-PCS; principal; 2017-04-14)
DX: F10.230 Alcohol dependence with withdrawal, uncomplicated (principal); F14.20 Cocaine dependence, uncomplicated; F12.20 Cannabis dependence, uncomplicated; F17.210 Nicotine dependence, cigarettes, uncomplicated; F25.0 Schizoaffective disorder, bipolar type; F31.81 Bipolar II disorder; F90.9 Attention-deficit hyperactivity disorder, unspecified type; B18.2 Chronic viral hepatitis C; Z21 Asymptomatic human immunodeficiency virus [HIV] infection status; K70.30 Alcoholic cirrhosis of liver without ascites; N40.0 Benign prostatic hyperplasia without lower urinary tract symptoms; Z87.438 Personal history of other diseases of male genital organs
CPT/HCPCS: 36415; 80053; 80164; 81003; 81015; 85027; 86593; 93005; 93010

== ENCOUNTER 2017-04-14 12:20 | Inpatient (IN) | payer OTHER ==
[2017-04-14 13:02] VITALS: BP 129/77; PULSE 85; TEMP 98
[2017-04-14] MEDS ORDERED: MENTHOL/PHENOL 1 EACH UD MM PRN (13:19)
[2017-04-14] MEDS ORDERED: P-EPHED 60MG/TRIPROLIDI 2.5MG TABLET PO PRN (13:19)
[2017-04-14] MEDS ORDERED: MAGNESIUM CITRATE 300 ML BOTTLE PO PRN (13:19)
[2017-04-14] MEDS ORDERED: hydrOXYzine PAMOATE 50 MG CAPSULE (FP) PO PRN (13:19)
[2017-04-14] MEDS ORDERED: IBUPROFEN 400 MG TABLET (FP) PO PRN (13:19)
[2017-04-14] MEDS ORDERED: LOPERAMIDE HCL 2 MG CAPSULE PO PRN (13:19)
[2017-04-14] MEDS ORDERED: MAG HYDROX/AL HYDROX/SIMETH 30 ML UNIT-DOSE CUP PO PRN (13:19)
[2017-04-14] MEDS ORDERED: MAGNESIUM HYDROX 2400MG/30ML ORAL SUSPENSION 30 ML CUP PO PRN (13:19)
[2017-04-14] MEDS ORDERED: diphenhydrAMINE HCL 50 MG CAPSULE PO PRN (13:19)
[2017-04-14] MEDS ORDERED: guaiFENesin/D-METHORPHAN HB 10 ML UNIT-DOSE CUPS PO PRN (13:19)
[2017-04-14] MEDS ORDERED: ACETAMINOPHEN 325 MG TABLET (FP) PO PRN (13:19)
[2017-04-14] MEDS ORDERED: ALBUTEROL SO4 6.7 GM HFA INHALER IH PRN (13:21)
--- NOTE | 2017-04-14 13:26 | HP ---
[facility] Rehab Assess/Revision - Admission History Admitted to Rehab from: [facility] Date of Admission to Rehab: 04/14/17 - Vital signs Vital Signs: Vital Signs Period Temp Pulse Resp BP Sys/Blank Pulse Ox Last 24 Hr 98 F 85 22 129/77 - Findings Detox History & Physical reviewed: Yes Concur with findings: Yes Comments/Additional Findings: for rehab as protocol
[2017-04-14] MEDS ORDERED: NICOTINE 21 MG/24 HOURS TOPICAL PATCH TD SCH (14:00)
--- NOTE | 2017-04-14 20:15 | PN ---
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 He requested to leave AMA because he stated he has to work tomorrow. Pt. is alert and oriented x 3; self- directing. Denied SI/HI with no obvious signs of distress noted. Refills for requested medications were sent to his pharmacy.
[2017-04-14] MEDS ORDERED: risperiDONE 2 MG TABLET PO SCH (22:00)
[2017-04-14] MEDS ORDERED: DIVALPROEX SODIUM 250 MG TABLET E.C. (FP) PO SCH (22:00)
[2017-04-14] MEDS ORDERED: ABACAVIR PO SCH (22:00)
[2017-04-14] MEDS ORDERED: TAMSULOSIN HCL 0.4 MG CAP.ER.24H (FP) PO SCH (22:00)
[2017-04-14] MEDS ORDERED: DIVALPROEX SODIUM 500 MG TABLET E.C. PO SCH (22:00)
[2017-04-14] MEDS ORDERED: QUEtiapine FUMARATE 100 MG TABLET (FP) PO SCH (22:00)
[2017-04-14] MEDS ORDERED: NEVIRAPINE 200 MG TABLET PO SCH (22:00)
[2017-04-14] MEDS ORDERED: THIAMINE HCL 100 MG TABLET (FP) PO SCH (22:00)
[2017-04-14] MEDS ORDERED: HYDROCORTISONE 1% TOPICAL CREAM 30 GM TUBE TP SCH (22:00)
[2017-04-14] MEDS ORDERED: LAMIVUDINE PO SCH (22:00)
[2017-04-14] MEDS ORDERED: ZIDOVUDINE PO SCH (22:00)
--- NOTE | 2017-04-15 07:55 | PN ---
S Progress Note Note: patient sighed out AMA on 04/14/17 prior to be seen for admission, please see medical staff notes
[2017-04-15] MEDS ORDERED: SULFAMETHOXAZOLE/TRIMETHOPRIM 800MG/160MG D.S. TABLET PO SCH (10:00)
[2017-04-15] MEDS ORDERED: valACYclovir HCL 500 MG TABLET (FP) PO SCH (10:00)
[2017-04-15] MEDS ORDERED: FLUCONAZOLE 100 MG TABLET (UD) PO SCH (10:00)
[2017-04-15] MEDS ORDERED: PRENATAL VITAMINS W/ FOLIC ACID TABLET (FP) PO SCH (10:00)
== END 2017-04-14 20:10 | disposition left against medical advice (07) | DRG 770 ==
LOC: YASAS 12:20 → Y5N 12:21
PROVIDERS: ADMIT Psychiatry & Neurology Psychiatry; ATTEND Psychiatry & Neurology Psychiatry
PROC: HZ42ZZZ Group Counseling for Substance Abuse Treatment, Cognitive-Behavioral (ICD-10-PCS; principal; 2017-04-14)
DX: F10.230 Alcohol dependence with withdrawal, uncomplicated (principal); F14.20 Cocaine dependence, uncomplicated; F17.213 Nicotine dependence, cigarettes, with withdrawal; B20 Human immunodeficiency virus [HIV] disease; J45.20 Mild intermittent asthma, uncomplicated; K70.30 Alcoholic cirrhosis of liver without ascites; B18.2 Chronic viral hepatitis C; N40.0 Benign prostatic hyperplasia without lower urinary tract symptoms; Z87.438 Personal history of other diseases of male genital organs; Z87.898 Personal history of other specified conditions; Z68.24 Body mass index [BMI] 24.0-24.9, adult

== ENCOUNTER 2017-06-09 11:47 | Inpatient (IN) | payer OTHER ==
[2017-06-09 12:31] VITALS: BMI 23.5
--- NOTE | 2017-06-09 13:44 | HP ---
CIWA Score - CIWA Score Nausea/Vomitin-No Nausea/No Vomiting Muscle Tremors: 4-Moderate,w/Arms Extend Anxiety: 3 Agitation: 4-Moderately Restless Paroxysmal Sweats: 3 Orientation: 0-Oriented Tacttile Disturbances: 0-None Auditory Disturbances: 0-None Visual Disturbances: 0-None Headache: 2-Mild CIWA-Ar Total Score: 16 Admission ROS BHS - HPI Chief Complaint: I need to stop using. Allergies/Adverse Reactions: Allergies Allergy/AdvReac Type Severity Reaction Status Date / Time chlordiazepoxide HCl Allergy Rash Verified 06/09/17 12:44 [From Librium] History of Present Illness: pt is a 57yr old male with a long history of alcohol and cocaine dependence seeking detox for treatment. Exam Limitations: No Limitations - Ebola screening Have you traveled outside of the country in the last 21 days: No Have you had contact with anyone from an Ebola affected area: No Have you been sick,other than usual withdrawal symptoms: No Do you have a fever: No - Review of Systems Constitutional: Chills, Diaphoresis, Loss of Appetite, Night Sweats, Changes in sleep EENT: reports: No Symptoms Reported Respiratory: reports: Cough Cardiac: reports: No Symptoms Reported GI: reports: Poor Appetite, Poor Fluid Intake : reports: Other (on flomax hesitancy/frequency) Musculoskeletal: reports: Back Pain Integumentary: reports: Flushing, Sweating Neuro: reports: Headache, Tingling, Tremors Endocrine: reports: Excessive Sweating, Flushing, Intolerance to Cold, Intolerance to Heat Hematology: reports: No Symptoms Reported Psychiatric: reports: Judgement Intact, Mood/Affect Appropiate, Orientated x3, Agitated, Anxious Other Systems: Reviewed and Negative Patient History - Patient Medical History Hx Anemia: Yes (not taking medication) Hx Asthma: Yes (Pt is on MDI.) Hx Chronic Obstructive Pulmonary Disease (COPD): No Hx Cancer: No Hx Cardiac Disorders: No Hx Congestive Heart Failure: No Hx Hypertension: Yes Hx Hypercholesterolemia: No Hx Pacemaker: No HX Cerebrovascular Accident: No Hx Seizures: No Hx Dementia: No Hx Diabetes: No Hx Gastrointestinal Disorders: No Hx Liver Disease: Yes (CIRRHOSIS) Hx Genitourinary Disorders: No Hx Sexually Transmitted Disorders: No Hx Renal Disease (ESRD): No Hx Thyroid Disease: No Hx Human Immunodeficiency Virus (HIV): Yes (ORAL THRUSH IN THE PAST; TRIZIVIR & VIRAMUNE/ non compliant) Hx Hepatitis C: Yes (tx with interferon 2013,DID NOT WORK.WILL BE TX. WITH [facility] ) Hx Depression: Yes Hx Suicide Attempt: Yes (Tried to cut wrist in 1983./denies any S/H ideation today) Hx Bipolar Disorder: Yes ( ) Hx Schizophrenia: Yes - Patient Surgical History Past Surgical History: Yes Hx Neurologic Surgery: No Hx Cataract Extraction: No Hx Cardiac Surgery: No Hx Lung Surgery: No Hx Breast Surgery: No Hx Breast Biopsy: No Hx Abdominal Surgery: No Hx Appendectomy: No Hx Cholecystectomy: No Hx Genitourinary Surgery: No Hx Section: No Hx Orthopedic Surgery: No Other Surgical History: RIGHT WRIST SX in 1983 for a laceration Anesthesia Reaction: No - PPD History Previous Implant?: Yes Documented Results: Negative w/proof Implanted On Prior R Admission?: Yes Date: 01/13/17 Results: 0 mm PPD to be Administered?: No - Reproductive History Patient is a Female of Child Bearing Age (11 -55 yrs old): No - Smoking Cessation Smoking history: Current every day smoker Have you smoked in the past 12 months: Yes Aproximately how many cigarettes per day: 30 Cigars Per Day: 0 Hx Chewing Tobacco Use: No Initiated information on smoking cessation: Yes 'Breaking Loose' booklet given: 06/09/17 - Substance & Tx. History Hx Alcohol Use: Yes Hx Substance Use: Yes Substance Use Type: Alcohol, Cocaine, Marijuana Hx Substance Use Treatment: Yes (last detox 12/2016 at [facility]) - Substances Abused Alcohol Route: Oral Frequency: Daily Amount used: 1 PINT VODKA Age of first use: 20 Date of Last Use: 06/09/17 Cocaine Route: Smoking Frequency: Daily Amount used: $500 Age of first use: 31 Date of Last Use: 06/08/17 Marijuana/Hashish Route: Smoking Frequency: 1-3 times last 30 days Amount used: $10 Age of first use: 17 Date of Last Use: 06/08/17 Family Disease History - Family Disease History Family Disease History: Diabetes: Mother, Respiratory: Sister, Other: Father ( addiction to heroin,) Admission Physical Exam BHS - Vital Signs Vital Signs: Vital Signs - 24 hr 06/09/17 12:29 Temperature 97 F L Pulse Rate 92 H Respiratory 20 Rate Blood Pressure 178/98 - Physical General Appearance: Yes: Moderate Distress, Thin, Tremorous, Irritable, Sweating , Anxious HEENTM: Yes: Hearing grossly Normal, Normal Voice, Nasal Congestion, Rhinorrhea Respiratory: Yes: Lungs Clear, Normal Breath Sounds, No Respiratory Distress Neck: Yes: No masses,lesions,Nodules Breast: Yes: Within Normal Limits Cardiology: Yes: Regular Rhythm, Regular Rate, S1, S2 Abdominal: Yes: Normal Bowel Sounds, Non Tender, Soft Genitourinary: Yes: Within Normal Limits Back: Yes: Normal Inspection Musculoskeletal: Yes: full range of Motion, Gait Steady Extremities: Yes: Normal Capillary Refill, Non-Tender, Tremors Neurological: Yes: Fully Oriented, Alert, Normal Response Integumentary: Yes: Normal Color, Diaphoresis Lymphatic: Yes: Within Normal Limits - Diagnostic (1) Alcohol dependence with uncomplicated withdrawal Current Visit: Yes Status: Chronic (2) Cocaine dependence Current Visit: Yes Status: Chronic Qualifiers: Substance use status: uncomplicated (3) Nicotine dependence Current Visit: Yes Status: Chronic Qualifiers: Nicotine product type: cigarettes Substance use status: uncomplicated Qualified Code(s): F17.210 - Nicotine dependence, cigarettes, uncomplicated (4) AIDS (acquired immune deficiency syndrome) Current Visit: Yes Status: Chronic Comment: non-compliant with regimen (5) Asthma Current Visit: Yes Status: Chronic Qualifiers: Asthma severity: mild intermittent Asthma complication type: uncomplicated Qualified Code(s): J45.20 - Mild intermittent asthma, uncomplicated (6) BPH (benign prostatic hypertrophy) Current Visit: Yes Status: Chronic Qualifiers: Lower urinary tract symptom presence: symptoms present Lower urinary tract symptom detail: unspecified Qualified Code(s): N40.1 - Benign prostatic hyperplasia with lower urinary tract symptoms (7) Cirrhosis of liver Current Visit: Yes Status: Chronic Qualifiers: Ascites presence: without ascites (8) Hypertension Current Visit: Yes Status: Chronic Qualifiers: Hypertension type: essential hypertension Cleared for Admission S - Detox or Rehab [facility] Level of Care: Medically Managed Detox Regimen/Protocol: Librium [facility] Breath Alcohol Content Breath Alcohol Content: 0.034 Urine Drug Screen - Results Drug Screen Negative: No Urine Drug Screen Results: THC-Marijuana, ANGIE-Cocaine
[2017-06-09] MEDS ORDERED: P-EPHED 60MG/TRIPROLIDI 2.5MG TABLET PO PRN (13:55)
[2017-06-09] MEDS ORDERED: LOPERAMIDE HCL 2 MG CAPSULE PO PRN (13:55)
[2017-06-09] MEDS ORDERED: ACETAMINOPHEN 325 MG TABLET (FP) PO PRN (13:55)
[2017-06-09] MEDS ORDERED: IBUPROFEN 400 MG TABLET (FP) PO PRN (13:55)
[2017-06-09] MEDS ORDERED: chlordiazePOXIDE HCL 25 MG CAPSULE PO PRN (13:55)
[2017-06-09] MEDS ORDERED: guaiFENesin/D-METHORPHAN HB 10 ML UNIT-DOSE CUPS PO PRN (13:55)
[2017-06-09] MEDS ORDERED: MAGNESIUM HYDROX 2400MG/30ML ORAL SUSPENSION 30 ML CUP PO PRN (13:55)
[2017-06-09] MEDS ORDERED: diphenhydrAMINE HCL 50 MG CAPSULE PO PRN (13:55)
[2017-06-09] MEDS ORDERED: NICOTINE POLACRILEX 4 MG GUM BUC PRN (13:55)
[2017-06-09] MEDS ORDERED: MAG HYDROX/AL HYDROX/SIMETH 30 ML UNIT-DOSE CUP PO PRN (13:55)
[2017-06-09] MEDS ORDERED: chlordiazePOXIDE HCL 25 MG CAPSULE PO ONE (13:55)
[2017-06-09] MEDS ORDERED: hydrOXYzine PAMOATE 50 MG CAPSULE (FP) PO PRN (13:55)
[2017-06-09] MEDS ORDERED: MENTHOL/PHENOL 1 EACH UD MM PRN (13:55)
[2017-06-09] MEDS ORDERED: MAGNESIUM CITRATE 300 ML BOTTLE PO PRN (13:55)
[2017-06-09] MEDS ORDERED: ALBUTEROL SO4 6.7 GM HFA INHALER IH PRN (14:03)
[2017-06-09] MEDS ORDERED: diazePAM 5 MG TABLET PO PRN (14:32)
[2017-06-09] MEDS ORDERED: diazePAM 5 MG TABLET PO ONE (14:36)
--- NOTE | 2017-06-09 14:58 | CONSULT ---
[facility] Psychiatric Consult - Data Date of interview: 06/09/17 Admission source: [facility] Identifying data: This is 57 years old male with history of Schizoaffective disorder intoxicated with Alcohol, Cocaine, Cannabis and Nicotine. Patient has a long history of alcohol and cocaine dependence and seeking for detox admission. Substance Abuse History: Smoking Cessation. Smoking history: Current every day smoker. Have you smoked in the past 12 months: Yes. Aproximately how many cigarettes per day: 30. Cigars Per Day: 0. Hx Chewing Tobacco Use: No. Initiated information on smoking cessation: Yes. 'Breaking Loose' booklet given : 06/09/17. - Substance & Tx. History. Hx Alcohol Use: Yes. Hx Substance Use : Yes. Substance Use Type: Alcohol, Cocaine, Marijuana. Hx Substance Use Treatment: Yes (last detox 12/2016 at [facility]). - Substances Abused. Alcohol. Route: Oral. Frequency: Daily. Amount used: 1 PINT VODKA. Age of first use: 20. Date of Last Use: 06/09/17. Cocaine. Route: Smoking. Frequency: Daily. Amount used: $500. Age of first use: 31. Date of Last Use: 06/08/17. Marijuana/Hashish. Route: Smoking. Frequency: 1-3 times last 30 days. Amount used: $10. Age of first use: 17. Date of Last Use: 06/08/17 Medical History: Asthma, AIDS, BPH, Liver Cirrhosis, HTN, Weight loss Psychiatric History: Patient reports history of Schizoaffective disorder, reports most recent psychiatric admission on 2017 at [facility], reports taking prior to admission: Depakote 250mg po bid. Risperdal 2mg po qhs Physical/Sexual Abuse/Trauma History: Denies Additional Comment: Depakote 250mg po bid. Risperdal 2mg po qhs Mental Status Exam - Mental Status Exam Alert and Oriented to: Person Cognitive Function: Fair Patient Appearance: Unkempt Mood: Apprehensive Affect: Mood Congruent Patient Behavior: Cooperative Speech Pattern: Appropriate Voice Loudness: Normal Thought Process: Circumstantial Thought Disorder: Being Controlled Hallucinations: Denies Suicidal Ideation: Denies Homicidal Ideation: Denies Insight/Judgement: Fair Sleep: Difficulty falling asleep Appetite: Weight loss Muscle strength/Tone: Normal Gait/Station: Normal Additional Comments: Depakote 250mg po bid. Risperdal 2mg po qhs Psychiatric Findings - Problem List ([place] 1, 2,3) (1) Alcohol dependence with uncomplicated withdrawal Current Visit: Yes Status: Chronic (2) Cirrhosis of liver Current Visit: Yes Status: Chronic Qualifiers: Ascites presence: without ascites (3) Cocaine dependence Current Visit: Yes Status: Chronic Qualifiers: Substance use status: uncomplicated (4) Nicotine dependence Current Visit: Yes Status: Chronic Qualifiers: Nicotine product type: cigarettes Substance use status: uncomplicated Qualified Code(s): F17.210 - Nicotine dependence, cigarettes, uncomplicated (5) Marijuana dependence Current Visit: No Status: Acute (6) Schizoaffective disorder Current Visit: No Status: Chronic Qualifiers: Schizoaffective disorder type: bipolar Qualified Code(s): F25.0 - Schizoaffective disorder, bipolar type - Initial Treatment Plan Initial Treatment Plan: Depakote 250mg po bid. Risperdal 2mg po qhs
[2017-06-09 15:05] VITALS: BP 155/88; PULSE 83; TEMP 98.2
--- NOTE | 2017-06-09 15:22 | EKG ---
Test Reason : Blood Pressure : / mmHG Vent. Rate : 079 BPM Atrial Rate : 079 BPM P-R Int : 126 ms QRS Dur : 092 ms QT Int : 382 ms P-R-T Axes : 067 062 043 degrees QTc Int : 438 ms NORMAL SINUS RHYTHM VOLTAGE CRITERIA FOR LEFT VENTRICULAR HYPERTROPHY NONSPECIFIC ST ABNORMALITY ABNORMAL ECG WHEN COMPARED WITH ECG OF 10-APR-2017 16:19, MINIMAL CRITERIA FOR SEPTAL INFARCT ARE NO LONGER PRESENT Confirmed by TAVO ESTEVEZ, MENG ([id number]) on 06/09/2017 3:21:41 PM Referred By: Bo Richards Confirmed By:MENG VO MD
[2017-06-09] MEDS ORDERED: chlordiazePOXIDE HCL 25 MG CAPSULE PO SCH (17:00)
[2017-06-09] MEDS ORDERED: TAMSULOSIN HCL 0.4 MG CAP.ER.24H (FP) PO ONE (17:30)
[2017-06-09] MEDS ORDERED: DIVALPROEX SODIUM 250 MG TABLET E.C. (FP) PO SCH (22:00)
[2017-06-09] MEDS ORDERED: risperiDONE 2 MG TABLET PO SCH (22:00)
[2017-06-09] MEDS ORDERED: diazePAM 5 MG TABLET PO SCH (22:00)
[2017-06-09] MEDS ORDERED: THIAMINE HCL 100 MG TABLET (FP) PO SCH (22:00)
[2017-06-09 22:10] LABS: URINE APPEARANCE CLEAR; URINE BILIRUBIN NEGATIVE (NEGATIVE); URINE BLOOD 1+ (NEGATIVE); URINE COLOR LTYELLOW; URINE GLUCOSE (UA) NEGATIVE (NEGATIVE); URINE KETONE NEGATIVE (NEGATIVE); URINE LEUK ESTERASE TRACE (NEGATIVE); URINE NITRITE NEGATIVE (NEGATIVE); URINE PROTEIN NEGATIVE (NEGATIVE); URINE UROBILINOGEN NEGATIVE mg/dL (0.2-1.0)
[2017-06-10] MEDS ORDERED: TAMSULOSIN HCL 0.4 MG CAP.ER.24H (FP) PO SCH (08:30)
[2017-06-10] MEDS ORDERED: PRENATAL VITAMINS W/ FOLIC ACID TABLET (FP) PO SCH (10:00)
[2017-06-10] MEDS ORDERED: valACYclovir HCL 500 MG TABLET (FP) PO SCH (10:00)
[2017-06-10] MEDS ORDERED: SULFAMETHOXAZOLE/TRIMETHOPRIM 800MG/160MG D.S. TABLET PO SCH (10:00)
[2017-06-10] MEDS ORDERED: NICOTINE 21 MG/24 HOURS TOPICAL PATCH TD SCH (10:00)
[2017-06-10] MEDS ORDERED: amLODIPine BESYLATE 10 MG TABLET (FP) PO SCH (10:00)
[2017-06-10] MEDS ORDERED: chlordiazePOXIDE HCL 25 MG CAPSULE PO SCH (17:00)
[2017-06-11] MEDS ORDERED: diazePAM 5 MG TABLET PO SCH (10:00)
[2017-06-11] MEDS ORDERED: chlordiazePOXIDE 5 MG CAPSULE PO SCH (17:00)
[2017-06-12] MEDS ORDERED: chlordiazePOXIDE HCL 10 MG CAPSULE PO SCH (17:00)
[2017-06-13] MEDS ORDERED: diazePAM 5 MG TABLET PO SCH (10:00)
== END 2017-06-09 17:30 | disposition home or self-care (01) | DRG 774 ==
LOC: YASAS 11:47 → Y6N 14:18
PROVIDERS: ADMIT Internal Medicine; ATTEND Internal Medicine
PROC: HZ2ZZZZ Detoxification Services for Substance Abuse Treatment (ICD-10-PCS; principal; 2017-06-09)
DX: F10.230 Alcohol dependence with withdrawal, uncomplicated (principal); F14.20 Cocaine dependence, uncomplicated; F12.20 Cannabis dependence, uncomplicated; F17.210 Nicotine dependence, cigarettes, uncomplicated; F25.0 Schizoaffective disorder, bipolar type; I10 Essential (primary) hypertension; K70.30 Alcoholic cirrhosis of liver without ascites; N40.0 Benign prostatic hyperplasia without lower urinary tract symptoms
CPT/HCPCS: 81003; 81015; 93005; 93010

== ENCOUNTER 2017-09-10 13:57 | Inpatient (IN) | payer OTHER ==
--- NOTE | 2017-09-10 14:26 | HP ---
[facility] Rehab Assess/Revision - Admission History Admitted to Rehab from: [facility] Date of Admission to Rehab: 09/10/17 - Vital signs Vital Signs: Vital Signs Period Temp Pulse Resp BP Sys/Blank Pulse Ox Last 24 Hr 97.9 F-97.9 F 88-88 18-18 149-149/81-81 - Findings Detox History & Physical reviewed: Yes Concur with findings: Yes Comments/Additional Findings: for rehab as protocol
[2017-09-10] MEDS ORDERED: MAG HYDROX/AL HYDROX/SIMETH 30 ML UNIT-DOSE CUP PO PRN (14:27)
[2017-09-10] MEDS ORDERED: IBUPROFEN 400 MG TABLET (FP) PO PRN (14:27)
[2017-09-10] MEDS ORDERED: MAGNESIUM HYDROX 2400MG/30ML ORAL SUSPENSION 30 ML CUP PO PRN (14:27)
[2017-09-10] MEDS ORDERED: P-EPHED 60MG/TRIPROLIDI 2.5MG TABLET PO PRN (14:27)
[2017-09-10] MEDS ORDERED: MENTHOL/PHENOL 1 EACH UD MM PRN (14:27)
[2017-09-10] MEDS ORDERED: guaiFENesin/D-METHORPHAN HB 10 ML UNIT-DOSE CUPS PO PRN (14:27)
[2017-09-10] MEDS ORDERED: LOPERAMIDE HCL 2 MG CAPSULE PO PRN (14:27)
[2017-09-10] MEDS ORDERED: MAGNESIUM CITRATE 300 ML BOTTLE PO PRN (14:27)
[2017-09-10] MEDS ORDERED: ACETAMINOPHEN 325 MG TABLET (FP) PO PRN (14:27)
--- NOTE | 2017-09-10 14:28 | HP ---
[facility] Rehab Assess/Revision - Vital signs Vital Signs: Vital Signs Period Temp Pulse Resp BP Sys/Blank Pulse Ox Last 24 Hr 97.9 F-97.9 F 88-88 18-18 149-149/81-81 Inpatient Rehab Admission - Initial Determination Are CD services needed?: Yes Free of communicable disease: Yes Not in need of hospitalization: Yes - Rehab Admission Criteria Poor recovery environment: Yes Comorbidities: Yes Patient is meeting Inpatient Rehab admission criteria:: Yes
[2017-09-10] MEDS: THIAMINE HCL 100 MG TABLET (FP) PO SCH (21:54)
[2017-09-10] MEDS: QUEtiapine FUMARATE 100 MG TABLET (FP) PO SCH (21:54)
[2017-09-10] MEDS: HYDROCORTISONE 1% TOPICAL CREAM 30 GM TUBE TP SCH (21:55)
[2017-09-11] MEDS: TAMSULOSIN HCL 0.4 MG CAP.ER.24H (FP) PO SCH (09:30)
[2017-09-11] MEDS: NICOTINE 21 MG/24 HOURS TOPICAL PATCH TD SCH (10:16)
[2017-09-11] MEDS: PRENATAL VITAMINS W/ FOLIC ACID TABLET (FP) PO SCH (10:16)
[2017-09-11] MEDS: valACYclovir HCL 500 MG TABLET (FP) PO SCH (10:16)
[2017-09-11] MEDS: amLODIPine BESYLATE 10 MG TABLET (FP) PO SCH (10:16)
[2017-09-11] MEDS: SULFAMETHOXAZOLE/TRIMETHOPRIM 800MG/160MG D.S. TABLET PO SCH (10:16)
[2017-09-11] MEDS: HYDROCORTISONE 1% TOPICAL CREAM 30 GM TUBE TP SCH ×2 (10:16→21:50)
[2017-09-11] MEDS: NICOTINE POLACRILEX 4 MG GUM BUC PRN (10:18)
--- NOTE | 2017-09-11 10:47 | HP ---
Psychiatrist Admission - Data Date of interview: 09/11/17 Admission source: self-referred Identifying data: This is the third [facility] admission for this 57 years old single male, unemployed on HASA, living in independent housing Medical History: Significant for hiv infection since 1985, herpes genitalis, anemia, bronchial asthma, hypertension, cirrhosis of liver, hepatitis C, BPH ( benign prostatic hyperplasia) and history of treatment for hepatitis c, genital herpes, syphilis and surgery for laceration right wrist in 1983. Smokes cigarettes 1ppd Psychiatric History: Reports that he has been seeing psychiatrist since age 9 when he was diagnosed with ADHD. He was diagnosed with Schizophrenia 15 years ago. Reports muptiple previous psychiatric admissions mostly to [facility] [place] and [facility]. Reports having been at [facility] as well. Reports that his most recent admission was in May 2017 to [facility] for suicidal ideations. Reports receiving psychiatric outpatient services at [facility] and he is prescribed Seroquel 100 mg po HS and Klonopin 2 mg po BID. Reports history of multiple suicidal attempts by self-mutilation( wrist cutting). At present, reports feeling depressed and sleeping poorly Physical/Sexual Abuse/Trauma History: Denies history of physical, sexual abuse as well as DV relationship Additional Comment: Reports history of multiple arrests including 5-6 felony arrests. Just completed on parole on Aug 22, 2017 Vital Signs: Vital Signs - 24 hr 09/10/17 09/10/17 09/11/17 14:04 14:19 01:32 Temperature 97.9 F 97.9 F Pulse Rate 88 88 Respiratory 18 18 18 Rate Blood Pressure 149/81 149/81 09/11/17 09/11/17 03:30 07:22 Temperature 97.3 F L Pulse Rate 68 Respiratory 18 16 Rate Blood Pressure 132/84 Allergies/Adverse Reactions: Allergies Allergy/AdvReac Type Severity Reaction Status Date / Time chlordiazepoxide HCl Allergy Severe Rash Verified 09/10/17 14:07 [From Librium] Date of last physical exam: 09/06/17 Concur with the findings of this exam: Yes - Substance Abuse/Tx History Hx Alcohol Use: Yes Hx Substance Use: Yes Substance Use Type: Alcohol (Started drinking alcohol at age 14, consumes one pint of vodka & 4-5x 40oz of beer daily. Last drank on 09/06/17), Cocaine ( Started smoking crack cocaine at age 35, consumes $200 worth daily. Last smoked on 09/05/17) Hx Substance Use Treatment: Yes (multiple(11) previous inpt detox & 2 inpt rehab admissions @ [facility]) Mental Status Exam - Mental Status Exam Alert and Oriented to: Time, Place, Person Cognitive Function: Fair Patient Appearance: Well Groomed Mood: Depressed Affect: Appropriate Patient Behavior: Cooperative Speech Pattern: Clear Voice Loudness: Normal Thought Process: Intact, Goal Oriented Hallucinations: Denies Suicidal Ideation: Denies Homicidal Ideation: Denies Insight/Judgement: Fair Sleep: Poorly Appetite: Poor Muscle strength/Tone: Normal Gait/Station: Normal Psychiatric Findings - Problem List ([place] 1, 2,3) (1) Alcohol dependence with uncomplicated withdrawal Current Visit: No Status: Acute (2) Cocaine dependence Current Visit: No Status: Acute Qualifiers: Substance use status: uncomplicated Qualified Code(s): F14.20 - Cocaine dependence, uncomplicated (3) Nicotine dependence Current Visit: No Status: Acute Qualifiers: Nicotine product type: cigarettes Substance use status: in withdrawal Qualified Code(s): F17.213 - Nicotine dependence, cigarettes, with withdrawal (4) Schizoaffective disorder Current Visit: No Status: Chronic Qualifiers: Schizoaffective disorder type: bipolar Qualified Code(s): F25.0 - Schizoaffective disorder, bipolar type Comment: As per self-report and old records.No compliance with OPD care. (5) Bipolar II disorder Current Visit: No Status: Ruled-out (6) Substance induced mood disorder Current Visit: No Status: Acute (7) Substance-induced sleep disorder Current Visit: Yes Status: Acute (8) Asthma Current Visit: No Status: Chronic Qualifiers: Asthma severity: mild Asthma persistence: unspecified Asthma complication type: uncomplicated Qualified Code(s): J45.909 - Unspecified asthma, uncomplicated (9) BPH (benign prostatic hypertrophy) Current Visit: No Status: Chronic Qualifiers: Lower urinary tract symptom presence: symptoms absent Qualified Code(s): N40.0 - Benign prostatic hyperplasia without lower urinary tract symptoms (10) Cirrhosis of liver Current Visit: No Status: Chronic Qualifiers: Hepatic cirrhosis type: unspecified hepatic cirrhosis Ascites presence: without ascites Qualified Code(s): K74.60 - Unspecified cirrhosis of liver (11) HIV (human immunodeficiency virus infection) Current Visit: No Status: Chronic (12) Hepatitis C Current Visit: No Status: Chronic Qualifiers: Viral hepatitis chronicity: chronic Hepatic coma status: without hepatic coma Qualified Code(s): B18.2 - Chronic viral hepatitis C (13) History of herpes genitalis Current Visit: No Status: Chronic (14) Hypertension Current Visit: No Status: Chronic Qualifiers: Hypertension type: essential hypertension Qualified Code(s): I10 - Essential (primary) hypertension (15) Anemia Current Visit: No Status: Suspected Qualifiers: Anemia type: unspecified type Qualified Code(s): D64.9 - Anemia, unspecified - Initial Treatment Plan Initial Treatment Plan: 1) Continue Seroquel 100 mg po HS. 2) Monitor progress
[2017-09-11] MEDS: THIAMINE HCL 100 MG TABLET (FP) PO SCH (21:50)
[2017-09-11] MEDS: QUEtiapine FUMARATE 100 MG TABLET (FP) PO SCH (21:50)
[2017-09-11] MEDS ORDERED: QUEtiapine FUMARATE 100 MG TABLET (FP) PO SCH (22:00)
[2017-09-12 06:53] VITALS: TEMP 97.8
[2017-09-12] MEDS: TAMSULOSIN HCL 0.4 MG CAP.ER.24H (FP) PO SCH (09:30)
[2017-09-12 10:30] VITALS: BP 141/88; PULSE 76
[2017-09-12] MEDS: PRENATAL VITAMINS W/ FOLIC ACID TABLET (FP) PO SCH (10:36)
[2017-09-12] MEDS: HYDROCORTISONE 1% TOPICAL CREAM 30 GM TUBE TP SCH (10:36)
[2017-09-12] MEDS: NICOTINE 21 MG/24 HOURS TOPICAL PATCH TD SCH (10:36)
[2017-09-12] MEDS: amLODIPine BESYLATE 10 MG TABLET (FP) PO SCH (10:36)
[2017-09-12] MEDS: SULFAMETHOXAZOLE/TRIMETHOPRIM 800MG/160MG D.S. TABLET PO SCH (10:36)
[2017-09-12] MEDS: valACYclovir HCL 500 MG TABLET (FP) PO SCH (10:36)
[2017-09-12] MEDS: NICOTINE POLACRILEX 4 MG GUM BUC PRN (10:38)
--- NOTE | 2017-09-12 11:57 | PN ---
[facility] Progress Note Note: Patient decided to sign out today AMA.He will continue to address his issues on outpatient basis.Script for Seroquel 100 mg po hs proivided for 30 days.
== END 2017-09-12 12:00 | disposition left against medical advice (07) | DRG 770 ==
LOC: YASAS 13:57 → Y5N 14:01
PROVIDERS: ADMIT Psychiatry & Neurology Psychiatry; ATTEND Psychiatry & Neurology Psychiatry
PROC: HZ42ZZZ Group Counseling for Substance Abuse Treatment, Cognitive-Behavioral (ICD-10-PCS; principal; 2017-09-10)
DX: F10.230 Alcohol dependence with withdrawal, uncomplicated (principal); F14.20 Cocaine dependence, uncomplicated; F17.210 Nicotine dependence, cigarettes, uncomplicated; F25.0 Schizoaffective disorder, bipolar type; F31.81 Bipolar II disorder; F19.24 Other psychoactive substance dependence with psychoactive substance-induced mood disorder; F19.282 Other psychoactive substance dependence with psychoactive substance-induced sleep disorder; I10 Essential (primary) hypertension; J45.909 Unspecified asthma, uncomplicated; Z21 Asymptomatic human immunodeficiency virus [HIV] infection status; N40.0 Benign prostatic hyperplasia without lower urinary tract symptoms; K74.60 Unspecified cirrhosis of liver; B18.2 Chronic viral hepatitis C; D64.9 Anemia, unspecified; Z86.19 Personal history of other infectious and parasitic diseases

== ENCOUNTER 2017-10-16 13:35 | Inpatient (IN) | payer OTHER ==
[2017-10-16 13:56] VITALS: BMI 23.8
[2017-10-16] MEDS ORDERED: MENTHOL/PHENOL 1 EACH UD MM PRN (16:07)
[2017-10-16] MEDS ORDERED: IBUPROFEN 400 MG TABLET (FP) PO PRN (16:07)
[2017-10-16] MEDS ORDERED: LOPERAMIDE HCL 2 MG CAPSULE PO PRN (16:07)
[2017-10-16] MEDS ORDERED: MAGNESIUM HYDROX 2400MG/30ML ORAL SUSPENSION 30 ML CUP PO PRN (16:07)
[2017-10-16] MEDS ORDERED: MAGNESIUM CITRATE 300 ML BOTTLE PO PRN (16:07)
[2017-10-16] MEDS ORDERED: hydrOXYzine PAMOATE 50 MG CAPSULE (FP) PO PRN (16:07)
[2017-10-16] MEDS ORDERED: MAG HYDROX/AL HYDROX/SIMETH 30 ML UNIT-DOSE CUP PO PRN (16:07)
[2017-10-16] MEDS ORDERED: ACETAMINOPHEN 325 MG TABLET (FP) PO PRN (16:07)
[2017-10-16] MEDS ORDERED: P-EPHED 60MG/TRIPROLIDI 2.5MG TABLET PO PRN (16:07)
[2017-10-16] MEDS ORDERED: guaiFENesin/D-METHORPHAN HB 10 ML UNIT-DOSE CUPS PO PRN (16:07)
[2017-10-16] MEDS ORDERED: NICOTINE POLACRILEX 2 MG GUM BC PRN (16:07)
[2017-10-16] MEDS ORDERED: diazePAM 5 MG TABLET PO ONE (16:12)
[2017-10-16] MEDS ORDERED: diazePAM 5 MG TABLET PO PRN (16:12)
[2017-10-16] MEDS ORDERED: ALBUTEROL SO4 18 GM HFA INHALER IH PRN (16:12)
--- NOTE | 2017-10-16 16:20 | HP ---
CIWA Score - CIWA Score Nausea/Vomitin Muscle Tremors: 3 Anxiety: 4-Mod. Anxious/Guarded Agitation: 4-Moderately Restless Paroxysmal Sweats: 3 Orientation: 0-Oriented Tacttile Disturbances: 0-None Auditory Disturbances: 0-None Visual Disturbances: 0-None Headache: 0-None Present CIWA-Ar Total Score: 16 Admission ROS BHS - HPI Chief Complaint: Withdrawal sx. Allergies/Adverse Reactions: Allergies Allergy/AdvReac Type Severity Reaction Status Date / Time chlordiazepoxide HCl Allergy Severe Rash Verified 09/10/17 14:07 [From Librium] History of Present Illness: 57 y/o man with a along hx. of alcoholism is admitted for detox. Pt. has been in previous detox, denies significant sobriety. Pt. went to the ED at [facility] for UTI, Bactrim DS ordered. Exam Limitations: No Limitations - Ebola screening Have you traveled outside of the country in the last 21 days: No (N) Have you had contact with anyone from an Ebola affected area: No Have you been sick,other than usual withdrawal symptoms: No Do you have a fever: No - Review of Systems Constitutional: Diaphoresis EENT: reports: No Symptoms Reported Respiratory: reports: Shortness of Breath (Asthma) Cardiac: reports: No Symptoms Reported GI: reports: Nausea, Abdominal cramping : reports: No Symptoms Reported Musculoskeletal: reports: Back Pain, Joint Pain Integumentary: reports: Sweating Neuro: reports: Tremors Endocrine: reports: No Symptoms Reported Hematology: reports: No Symptoms Reported Psychiatric: reports: No Sypmtoms Reported Other Systems: Reviewed and Negative Patient History - Patient Medical History Hx Anemia: No Hx Asthma: Yes Hx Chronic Obstructive Pulmonary Disease (COPD): No Hx Cancer: No Hx Cardiac Disorders: No Hx Congestive Heart Failure: No Hx Hypertension: Yes Hx Hypercholesterolemia: Yes Hx Pacemaker: No HX Cerebrovascular Accident: No Hx Seizures: No Hx Dementia: No Hx Diabetes: No Hx Gastrointestinal Disorders: No Hx Liver Disease: Yes (CIRRHOSIS) Hx Genitourinary Disorders: No Hx Sexually Transmitted Disorders: No Hx Renal Disease (ESRD): No Hx Thyroid Disease: No Hx Human Immunodeficiency Virus (HIV): Yes (ORAL THRUSH IN THE PAST; TRIZIVIR & VIRAMUNE/ non compliant) Hx Hepatitis C: Yes (tx with interferon 2013,DID NOT WORK.WILL BE TX. WITH HARVONI ) Hx Depression: Yes Hx Suicide Attempt: No Hx Bipolar Disorder: Yes ( ) Hx Schizophrenia: No - Patient Surgical History Past Surgical History: Yes Hx Neurologic Surgery: No Hx Cataract Extraction: No Hx Cardiac Surgery: No Hx Lung Surgery: No Hx Breast Surgery: No Hx Breast Biopsy: No Hx Abdominal Surgery: No Hx Appendectomy: No Hx Cholecystectomy: No Hx Genitourinary Surgery: No Hx Section: No Hx Orthopedic Surgery: No Other Surgical History: RIGHT WRIST SX in 1983 for a laceration Anesthesia Reaction: No - PPD History Previous Implant?: Yes Documented Results: Negative w/proof Implanted On Prior [facility] Admission?: Yes Date: 01/13/17 Results: 0 mm. - Smoking Cessation Smoking history: Current every day smoker Have you smoked in the past 12 months: Yes Aproximately how many cigarettes per day: 20 Cigars Per Day: 0 Hx Chewing Tobacco Use: No Initiated information on smoking cessation: Yes 'Breaking Loose' booklet given: 10/16/17 - Substance & Tx. History Hx Alcohol Use: Yes Hx Substance Use: Yes Substance Use Type: Alcohol, Cocaine Hx Substance Use Treatment: Yes (Detox) - Substances Abused Alcohol Route: Oral Frequency: Daily Amount used: vodka(1 pint)/beer(3-4 40 o cans) Age of first use: 18 Date of Last Use: 10/16/17 Cocaine Route: Smoking Frequency: Daily Amount used: $200 Age of first use: 31 Date of Last Use: 10/15/17 Family Disease History - Family Disease History Family Disease History: Diabetes: Mother, Respiratory: Sister, Other: Father ( addiction to heroin,) Admission Physical Exam [facility] - Vital Signs Vital Signs: Vital Signs - 24 hr 10/16/17 13:54 Temperature 97.2 F L Pulse Rate 102 H Respiratory 18 Rate Blood Pressure 160/92 - Physical General Appearance: Yes: Tremorous, Irritable, Sweating, Anxious HEENTM: Yes: Within Normal Limits Respiratory: Yes: Chest Non-Tender, Lungs Clear, Normal Breath Sounds Neck: Yes: Supple Breast: Yes: Breast Exam Deferred Cardiology: Yes: Regular Rhythm, Regular Rate, S1, S2 Abdominal: Yes: Normal Bowel Sounds, Non Tender, Soft Genitourinary: Yes: Within Normal Limits Back: Yes: Within Normal Limits Musculoskeletal: Yes: Within Normal Limits Extremities: Yes: Tremors Neurological: Yes: Fully Oriented, Alert Integumentary: Yes: Diaphoresis Lymphatic: Yes: Within Normal Limits - Diagnostic (1) AIDS (acquired immune deficiency syndrome) Current Visit: Yes Status: Acute (2) Alcohol dependence with uncomplicated withdrawal Current Visit: Yes Status: Acute (3) Cocaine dependence Current Visit: Yes Status: Acute Qualifiers: Substance use status: uncomplicated Qualified Code(s): F14.20 - Cocaine dependence, uncomplicated (4) Nicotine dependence Current Visit: Yes Status: Acute Qualifiers: Nicotine product type: cigarettes Substance use status: in withdrawal Qualified Code(s): F17.213 - Nicotine dependence, cigarettes, with withdrawal (5) Asthma Current Visit: Yes Status: Chronic Qualifiers: Asthma severity: mild Asthma persistence: unspecified Asthma complication type: uncomplicated Qualified Code(s): J45.909 - Unspecified asthma, uncomplicated (6) BPH (benign prostatic hypertrophy) Current Visit: Yes Status: Chronic Qualifiers: Lower urinary tract symptom presence: symptoms absent Qualified Code(s): N40.0 - Benign prostatic hyperplasia without lower urinary tract symptoms (7) Hypertension Current Visit: Yes Status: Chronic Qualifiers: Hypertension type: essential hypertension Qualified Code(s): I10 - Essential (primary) hypertension Cleared for Admission B[facility] - Detox or Rehab S Level of Care: Medically Managed Detox Regimen/Protocol: Librium [facility] Breath Alcohol Content Breath Alcohol Content: 0 Urine Drug Screen - Results Urine Drug Screen Results: ANGIE-Cocaine, BZO-Benzodiazepines
[2017-10-16] MEDS: ASPIRIN 81 MG CHEWABLE TABLETS PO SCH (19:15)
[2017-10-16] MEDS: NICOTINE 21 MG/24 HOURS TOPICAL PATCH TD SCH (19:16)
[2017-10-16] MEDS: amLODIPine BESYLATE 10 MG TABLET (FP) PO SCH (19:44)
[2017-10-16] MEDS: SULFAMETHOXAZOLE/TRIMETHOPRIM 800MG/160MG D.S. TABLET PO SCH (22:33)
[2017-10-16] MEDS: THIAMINE HCL 100 MG TABLET (FP) PO SCH (22:33)
[2017-10-16] MEDS: diazePAM 5 MG TABLET PO SCH (22:33)
[2017-10-16 23:36] LABS: URINE APPEARANCE CLEAR; URINE BILIRUBIN NEGATIVE (NEGATIVE); URINE BLOOD NEGATIVE (NEGATIVE); URINE COLOR YELLOW; URINE GLUCOSE (UA) NEGATIVE (NEGATIVE); URINE KETONE NEGATIVE (NEGATIVE); URINE LEUK ESTERASE NEGATIVE (NEGATIVE); URINE NITRITE NEGATIVE (NEGATIVE); URINE UROBILINOGEN NEGATIVE mg/dL (0.2-1.0)
[2017-10-16 23:47] LABS: URINE PROTEIN 1+ (NEGATIVE)
[2017-10-16 23:50] LABS: EPI CELLS RARE /HPF (FEW); URINE MUCUS FEW
[2017-10-17] MEDS: diazePAM 5 MG TABLET PO SCH ×3 (05:13→22:09)
--- NOTE | 2017-10-17 08:50 | EKG ---
Test Reason : Blood Pressure : / mmHG Vent. Rate : 071 BPM Atrial Rate : 071 BPM P-R Int : 126 ms QRS Dur : 080 ms QT Int : 402 ms P-R-T Axes : 009 036 039 degrees QTc Int : 436 ms NORMAL SINUS RHYTHM MINIMAL VOLTAGE CRITERIA FOR LVH, MAY BE NORMAL VARIANT BORDERLINE ECG WHEN COMPARED WITH ECG OF 06-SEP-2017 19:11, CRITERIA FOR SEPTAL INFARCT ARE NO LONGER PRESENT Confirmed by Alex Martinez ([id number]) on 10/17/2017 8:50:37 AM Referred By: Benton Levine Confirmed By:Alex Martinez
--- NOTE | 2017-10-17 09:31 | CONSULT ---
[facility] Psychiatric Consult - Data Date of interview: 10/17/17 Admission source: [facility] Identifying data: This is 61 ytears old male with psychiatric hospiotalization hiastory intoxicated with: Alcohol, Cocaine, Benzo and Nicotine Substance Abuse History: - Smoking Cessation. Smoking history: Current every day smoker. Have you smoked in the past 12 months: Yes. Aproximately how many cigarettes per day: 20. Cigars Per Day: 0. Hx Chewing Tobacco Use: No. Initiated information on smoking cessation: Yes. 'Breaking Loose' booklet given : 10/16/17. - Substance & Tx. History. Hx Alcohol Use: Yes. Hx Substance Use : Yes. Substance Use Type: Alcohol, Cocaine. Hx Substance Use Treatment: Yes ( Detox). - Substances Abused. Alcohol. Route: Oral. Frequency: Daily. Amount used: vodka(1 pint)/beer(3-4 40 o cans). Age of first use: 18. Date of Last Use: 10/16/17. Cocaine. Route: Smoking. Frequency: Daily. Amount used: $200. Age of first use: 31. Date of Last Use: 10/15/17 Medical History: AIDS, HTN, Asthma, BPH Psychiatric History: Patient repoorts history of Bipolar disorsder with most recent psychiatric admission on 2018 at [facility], reports taking prior to admission: Depakote 250mg po bid. Seroquel 100mg po qhs Physical/Sexual Abuse/Trauma History: Denies Additional Comment: Depakote 250mg po bid. Seroquel 100mg po qhs Mental Status Exam - Mental Status Exam Alert and Oriented to: Person Cognitive Function: Fair Patient Appearance: Unkempt Mood: Sad Affect: Flat Patient Behavior: Sedated Speech Pattern: Delayed Voice Loudness: Mildly Soft/Quiet Thought Process: Circumstantial Thought Disorder: Being Controlled Hallucinations: Denies Suicidal Ideation: Denies Homicidal Ideation: Denies Insight/Judgement: Fair Sleep: Fair Appetite: Weight loss Muscle strength/Tone: Moderate Hypertonicity Gait/Station: Shuffling Additional Comments: Depakote 250mg po bid. Seroquel 100mg po qhs Psychiatric Findings - Problem List ([place] 1, 2,3) (1) Bipolar 1 disorder Current Visit: Yes Status: Acute (2) Alcohol dependence with uncomplicated withdrawal Current Visit: Yes Status: Acute (3) Cocaine dependence Current Visit: Yes Status: Acute Qualifiers: Substance use status: uncomplicated Qualified Code(s): F14.20 - Cocaine dependence, uncomplicated (4) Nicotine dependence Current Visit: Yes Status: Acute Qualifiers: Nicotine product type: cigarettes Substance use status: in withdrawal Qualified Code(s): F17.213 - Nicotine dependence, cigarettes, with withdrawal (5) Marijuana dependence Current Visit: No Status: Acute (6) Substance induced mood disorder Current Visit: No Status: Acute (7) Substance-induced sleep disorder Current Visit: No Status: Acute (8) Weight loss Current Visit: No Status: Acute (9) Cirrhosis of liver Current Visit: No Status: Chronic Qualifiers: Hepatic cirrhosis type: unspecified hepatic cirrhosis Ascites presence: without ascites Qualified Code(s): K74.60 - Unspecified cirrhosis of liver (10) Schizoaffective disorder Current Visit: No Status: Chronic Qualifiers: Schizoaffective disorder type: bipolar Qualified Code(s): F25.0 - Schizoaffective disorder, bipolar type Comment: As per self-report and old records.No compliance with OPD care. - Initial Treatment Plan Initial Treatment Plan: Depakote 250mg po bid. Seroquel 100mg po qhs. Blood Depakote level
[2017-10-17 10:16] LABS: HEMATOCRIT 48.5 % (35.4-49); HEMOGLOBIN 15.9 GM/dL (11.7-16.9); MCH 30.8 pg (25.7-33.7); MCHC 32.8 g/dl (32.0-35.9); MEAN PLT VOLUME 9.2 fl (7.5-11.1); PLATELET COUNT 231 K/MM3 (134-434); RBC 5.16 M/mm3 (4.00-5.60); RDW 13.8 % (11.9-15.9); WHITE BLOOD COUNT 6.7 K/mm3 (4.0-10.0)
[2017-10-17] MEDS: ASPIRIN 81 MG CHEWABLE TABLETS PO SCH (10:24)
[2017-10-17] MEDS: PRENATAL VITAMINS W/ FOLIC ACID TABLET (FP) PO SCH (10:25)
[2017-10-17] MEDS: valACYclovir HCL 500 MG TABLET (FP) PO SCH (10:25)
[2017-10-17] MEDS: SULFAMETHOXAZOLE/TRIMETHOPRIM 800MG/160MG D.S. TABLET PO SCH ×2 (10:25→22:09)
[2017-10-17 10:26] LABS: ALBUMIN 3.4 g/dl (3.4-5.0); ALK PHOS 95 U/L (45-117); ANION GAP 5 (8-16); BILIRUBIN,TOTAL 0.3 mg/dL (0.2-1.0); BLOOD UREA NITROGEN 26 mg/dL (7-18); CALCIUM 8.8 mg/dL (8.5-10.1); CHLORIDE 102 mmol/L (98-107); CO2 32 mmol/L (21-32); CREATININE 1.4 mg/dL (0.7-1.3); GLUCOSE,RANDOM 87 mg/dL (74-106); POTASSIUM 3.8 mmol/L (3.5-5.1); SGOT/AST 17 U/L (15-37); SGPT/ALT 28 U/L (12-78); SODIUM 139 mmol/L (136-145); TOT PROT 7.8 g/dl (6.4-8.2)
[2017-10-17] MEDS: DIVALPROEX SODIUM 250 MG TABLET E.C. (FP) PO SCH ×2 (10:26→22:09)
[2017-10-17] MEDS: TAMSULOSIN HCL 0.4 MG CAP.ER.24H (FP) PO SCH (10:26)
[2017-10-17] MEDS: amLODIPine BESYLATE 10 MG TABLET (FP) PO SCH (10:27)
[2017-10-17] MEDS: NICOTINE 21 MG/24 HOURS TOPICAL PATCH TD SCH (10:27)
--- NOTE | 2017-10-17 12:58 | PN ---
S CIWA - CIWA Score Nausea/Vomitin Muscle Tremors: 3 Anxiety: 3 Agitation: 3 Paroxysmal Sweats: 5 Orientation: 0-Oriented Tacttile Disturbances: 0-None Auditory Disturbances: 0-None Visual Disturbances: 0-None Headache: 0-None Present CIWA-Ar Total Score: 16 BHS Progress Note (SOAP) Subjective: sweats tremors painful urination Objective: 10/17/17 12:56 Vital Signs Temperature 96.8 F L 10/17/17 09:24 Pulse Rate 75 10/17/17 09:24 Respiratory Rate 18 10/17/17 09:24 Blood Pressure 151/92 10/17/17 09:24 O2 Sat by Pulse Oximetry (%) Laboratory Last Values WBC 6.7 K/mm3 (4.0-10.0) D 10/17/17 07:00 RBC 5.16 M/mm3 (4.00-5.60) 10/17/17 07:00 Hgb 15.9 GM/dL (11.7-16.9) D 10/17/17 07:00 Hct 48.5 % (35.4-49) D 10/17/17 07:00 MCV 94.0 fl (80-96) 10/17/17 07:00 MCH 30.8 pg (25.7-33.7) 10/17/17 07:00 MCHC 32.8 g/dl (32.0-35.9) 10/17/17 07:00 RDW 13.8 % (11.9-15.9) 10/17/17 07:00 Plt Count 231 K/MM3 (134-434) 10/17/17 07:00 MPV 9.2 fl (7.5-11.1) 10/17/17 07:00 Sodium 139 mmol/L (136-145) 10/17/17 07:00 Potassium 3.8 mmol/L (3.5-5.1) 10/17/17 07:00 Chloride 102 mmol/L (98-107) 10/17/17 07:00 Carbon Dioxide 32 mmol/L (21-32) 10/17/17 07:00 Anion Gap 5 (8-16) L 10/17/17 07:00 BUN 26 mg/dL (7-18) H D 10/17/17 07:00 Creatinine 1.4 mg/dL (0.7-1.3) H D 10/17/17 07:00 Creat Clearance w eGFR 52.62 (>60) 10/17/17 07:00 Random Glucose 87 mg/dL (74-106) 10/17/17 07:00 Calcium 8.8 mg/dL (8.5-10.1) 10/17/17 07:00 Total Bilirubin 0.3 mg/dL (0.2-1.0) 10/17/17 07:00 AST 17 U/L (15-37) D 10/17/17 07:00 ALT 28 U/L (12-78) 10/17/17 07:00 Alkaline Phosphatase 95 U/L (45-117) 10/17/17 07:00 Total Protein 7.8 g/dl (6.4-8.2) 10/17/17 07:00 Albumin 3.4 g/dl (3.4-5.0) 10/17/17 07:00 Urine Color Yellow 10/16/17 23:20 Urine Appearance Clear 10/16/17 23:20 Urine pH 6.0 (5.0-8.0) 10/16/17 23:20 Ur Specific [place] 1.016 (1.001-1.035) 10/16/17 23:20 Urine Protein 1+ (NEGATIVE) H 10/16/17 23:20 Urine Glucose (UA) Negative (NEGATIVE) 10/16/17 23:20 Urine Ketones Negative (NEGATIVE) 10/16/17 23:20 Urine Blood Negative (NEGATIVE) 10/16/17 23:20 Urine Nitrite Negative (NEGATIVE) 10/16/17 23:20 Urine Bilirubin Negative (NEGATIVE) 10/16/17 23:20 Urine Urobilinogen Negative mg/dL (0.2-1.0) 10/16/17 23:20 Ur Leukocyte Esterase Negative (NEGATIVE) 10/16/17 23:20 Urine WBC (Auto) 2 /hpf (3-5) 10/16/17 23:20 Urine RBC (Auto) 1 /hpf (0-3) 10/16/17 23:20 Ur Epithelial Cells Rare /HPF (FEW) 10/16/17 23:20 Urine Mucus Few 10/16/17 23:20 RPR Titer Nonreactive (NONREACTIVE) 10/17/17 07:00 LAbs noted Assessment: 10/17/17 12:58 withdrawal sx UTI no acute distress Plan: continue detox continue bactrim as ordered increase fluid intake
--- NOTE | 2017-10-17 13:11 | PN ---
S Progress Note Note: Pt noted to be on Genvoya and Flomax. Pt stated he had had been taking both meds for a "long time", admits that he is not always compliant but that "the medications dont do me anything wrong" Pt was educated on the risks of hypotension and also to get out of bed slowly and reports signs of dizziness if he feels it. Pt verbalized understanding. STONE Resendez was also infrmed to monitor pt for hypotension and call provider if signs noticed.
[2017-10-17] MEDS: ELVITEG/COB/EMTRI/TENOF (GENVOYA) TABLET (NF) PO SCH (14:11)
[2017-10-17] MEDS: THIAMINE HCL 100 MG TABLET (FP) PO SCH (22:09)
[2017-10-17] MEDS: QUEtiapine FUMARATE 100 MG TABLET (FP) PO SCH (22:10)
[2017-10-18] MEDS: NICOTINE 21 MG/24 HOURS TOPICAL PATCH TD SCH (10:24)
[2017-10-18] MEDS: ELVITEG/COB/EMTRI/TENOF (GENVOYA) TABLET (NF) PO SCH (10:24)
[2017-10-18] MEDS: ASPIRIN 81 MG CHEWABLE TABLETS PO SCH (10:25)
[2017-10-18] MEDS: TAMSULOSIN HCL 0.4 MG CAP.ER.24H (FP) PO SCH (10:25)
[2017-10-18] MEDS: amLODIPine BESYLATE 10 MG TABLET (FP) PO SCH (10:25)
[2017-10-18] MEDS: DIVALPROEX SODIUM 250 MG TABLET E.C. (FP) PO SCH ×2 (10:25→22:07)
[2017-10-18] MEDS: SULFAMETHOXAZOLE/TRIMETHOPRIM 800MG/160MG D.S. TABLET PO SCH ×2 (10:25→22:07)
[2017-10-18] MEDS: diazePAM 5 MG TABLET PO SCH ×2 (10:25→22:08)
[2017-10-18] MEDS: valACYclovir HCL 500 MG TABLET (FP) PO SCH (10:25)
[2017-10-18] MEDS: PRENATAL VITAMINS W/ FOLIC ACID TABLET (FP) PO SCH (10:25)
--- NOTE | 2017-10-18 14:20 | PN ---
[facility] CIWA - CIWA Score Nausea/Vomitin-Mild Nausea/No Vomiting Muscle Tremors: 3 Anxiety: 2 Agitation: 4-Moderately Restless Paroxysmal Sweats: 2 Orientation: 0-Oriented Tacttile Disturbances: 0-None Auditory Disturbances: 1-Very Mild Visual Disturbances: 0-None Headache: 2-Mild CIWA-Ar Total Score: 15 S Progress Note (SOAP) Objective: 10/18/17 14:19 Laboratory Tests 10/16/17 10/17/17 10/17/17 23:20 07:00 07:00 WBC 6.7 D RBC 5.16 Hgb 15.9 D Hct 48.5 D MCV 94.0 MCH 30.8 MCHC 32.8 RDW 13.8 Plt Count 231 MPV 9.2 Sodium 139 Potassium 3.8 Chloride 102 Carbon Dioxide 32 Anion Gap 5 L BUN 26 H D Creatinine 1.4 H D Creat Clearance w eGFR 52.62 Random Glucose 87 Calcium 8.8 Total Bilirubin 0.3 AST 17 D ALT 28 Alkaline Phosphatase 95 Total Protein 7.8 Albumin 3.4 Urine Color Yellow Urine Appearance Clear Urine pH 6.0 Ur Specific [place] 1.016 Urine Protein 1+ H Urine Glucose (UA) Negative Urine Ketones Negative Urine Blood Negative Urine Nitrite Negative Urine Bilirubin Negative Urine Urobilinogen Negative Ur Leukocyte Esterase Negative Urine WBC (Auto) 2 Urine RBC (Auto) 1 Ur Epithelial Cells Rare Urine Mucus Few Valproic Acid RPR Titer 10/17/17 10/18/17 07:00 06:00 WBC RBC Hgb Hct MCV MCH MCHC RDW Plt Count MPV Sodium Potassium Chloride Carbon Dioxide Anion Gap BUN Creatinine Creat Clearance w eGFR Random Glucose Calcium Total Bilirubin AST ALT Alkaline Phosphatase Total Protein Albumin Urine Color Urine Appearance Urine pH Ur Specific [place] Urine Protein Urine Glucose (UA) Urine Ketones Urine Blood Urine Nitrite Urine Bilirubin Urine Urobilinogen Ur Leukocyte Esterase Urine WBC (Auto) Urine RBC (Auto) Ur Epithelial Cells Urine Mucus Valproic Acid < 3.000 L RPR Titer Nonreactive Assessment: 10/18/17 14:19 ongoing withdrawal Plan: cont detox protocol cont abx recheck cr
[2017-10-18] MEDS: QUEtiapine FUMARATE 100 MG TABLET (FP) PO SCH (22:07)
[2017-10-18] MEDS: THIAMINE HCL 100 MG TABLET (FP) PO SCH (22:07)
[2017-10-19] MEDS: TAMSULOSIN HCL 0.4 MG CAP.ER.24H (FP) PO SCH (09:58)
[2017-10-19 10:27] LABS: ANION GAP 10 (8-16); BLOOD UREA NITROGEN 16 mg/dL (7-18); CALCIUM 8.4 mg/dL (8.5-10.1); CHLORIDE 108 mmol/L (98-107); CO2 24 mmol/L (21-32); GLUCOSE,RANDOM 84 mg/dL (74-106); SODIUM 142 mmol/L (136-145)
[2017-10-19] MEDS: amLODIPine BESYLATE 10 MG TABLET (FP) PO SCH (10:31)
[2017-10-19] MEDS: SULFAMETHOXAZOLE/TRIMETHOPRIM 800MG/160MG D.S. TABLET PO SCH ×2 (10:31→22:04)
[2017-10-19] MEDS: valACYclovir HCL 500 MG TABLET (FP) PO SCH (10:31)
[2017-10-19] MEDS: PRENATAL VITAMINS W/ FOLIC ACID TABLET (FP) PO SCH (10:31)
[2017-10-19] MEDS: diazePAM 5 MG TABLET PO SCH ×2 (10:31→22:05)
[2017-10-19] MEDS: ASPIRIN 81 MG CHEWABLE TABLETS PO SCH (10:32)
[2017-10-19] MEDS: DIVALPROEX SODIUM 250 MG TABLET E.C. (FP) PO SCH ×2 (10:32→22:04)
[2017-10-19] MEDS: NICOTINE 21 MG/24 HOURS TOPICAL PATCH TD SCH (10:33)
[2017-10-19 11:37] LABS: ALK PHOS 93 U/L (45-117); BILIRUBIN,TOTAL 0.2 mg/dL (0.2-1.0); SGOT/AST 13 U/L (15-37)
[2017-10-19] MEDS: ELVITEG/COB/EMTRI/TENOF (GENVOYA) TABLET (NF) PO SCH (12:06)
--- NOTE | 2017-10-19 12:21 | PN ---
[facility] Progress Note (SOAP) Subjective: interrupted sleep, sweats , pt c/o urinary infection Objective: 10/19/17 12:18 Vital Signs Temperature 97.5 F L 10/19/17 10:33 Pulse Rate 90 10/19/17 10:33 Respiratory Rate 18 10/19/17 10:33 Blood Pressure 150/90 10/19/17 10:33 O2 Sat by Pulse Oximetry (%) Vital Signs Temp 97.5 F L 10/19/17 10:33 Pulse 90 10/19/17 10:33 Resp 18 10/19/17 10:33 BP 150/90 10/19/17 10:33 Pulse Ox Intake & Output 10/18/17 10/19/17 10/19/17 23:59 11:59 23:59 Other: Voiding Method Toilet pt aox3 lying in bed in nad Assessment: 10/19/17 12:19 withdrawal sx;s recieving tx for uti. creat. improved hiv Plan: cont. detox increase fluids cont bactrim d/c in am
[2017-10-19 13:01] LABS: SGPT/ALT 25 U/L (12-78)
[2017-10-19] MEDS: THIAMINE HCL 100 MG TABLET (FP) PO SCH (22:04)
[2017-10-19] MEDS: QUEtiapine FUMARATE 100 MG TABLET (FP) PO SCH (22:04)
[2017-10-20 09:48] VITALS: BP 131/85; PULSE 89; TEMP 97
[2017-10-20] MEDS: TAMSULOSIN HCL 0.4 MG CAP.ER.24H (FP) PO SCH (09:57)
[2017-10-20] MEDS ORDERED: diazePAM 5 MG TABLET PO SCH (10:00)
[2017-10-20] MEDS: amLODIPine BESYLATE 10 MG TABLET (FP) PO SCH (10:49)
[2017-10-20] MEDS: ASPIRIN 81 MG CHEWABLE TABLETS PO SCH (10:49)
[2017-10-20] MEDS: valACYclovir HCL 500 MG TABLET (FP) PO SCH (10:49)
[2017-10-20] MEDS: DIVALPROEX SODIUM 250 MG TABLET E.C. (FP) PO SCH (10:49)
[2017-10-20] MEDS: PRENATAL VITAMINS W/ FOLIC ACID TABLET (FP) PO SCH (10:49)
[2017-10-20] MEDS: ELVITEG/COB/EMTRI/TENOF (GENVOYA) TABLET (NF) PO SCH (10:49)
[2017-10-20] MEDS: SULFAMETHOXAZOLE/TRIMETHOPRIM 800MG/160MG D.S. TABLET PO SCH (10:51)
[2017-10-20] MEDS: NICOTINE 21 MG/24 HOURS TOPICAL PATCH TD SCH (10:52)
--- NOTE | 2017-10-20 14:09 | DS ---
[facility] Detox Discharge Summary Admission Date: 10/16/17 Discharge Date: 10/20/17 - History Present History: Alcohol Dependence - Physical Exam Results Vital Signs: Vital Signs Temperature 97.0 F L 10/20/17 09:47 Pulse Rate 89 10/20/17 09:47 Respiratory Rate 20 10/20/17 09:47 Blood Pressure 131/85 10/20/17 09:47 O2 Sat by Pulse Oximetry (%) Pertinent Admission Physical Exam Findings: withdrawal sx Laboratory Last Values WBC 6.7 K/mm3 (4.0-10.0) D 10/17/17 07:00 RBC 5.16 M/mm3 (4.00-5.60) 10/17/17 07:00 Hgb 15.9 GM/dL (11.7-16.9) D 10/17/17 07:00 Hct 48.5 % (35.4-49) D 10/17/17 07:00 MCV 94.0 fl (80-96) 10/17/17 07:00 MCH 30.8 pg (25.7-33.7) 10/17/17 07:00 MCHC 32.8 g/dl (32.0-35.9) 10/17/17 07:00 RDW 13.8 % (11.9-15.9) 10/17/17 07:00 Plt Count 231 K/MM3 (134-434) 10/17/17 07:00 MPV 9.2 fl (7.5-11.1) 10/17/17 07:00 Sodium 142 mmol/L (136-145) 10/19/17 07:00 Potassium 4.0 mmol/L (3.5-5.1) 10/19/17 07:00 Chloride 108 mmol/L (98-107) H 10/19/17 07:00 Carbon Dioxide 24 mmol/L (21-32) D 10/19/17 07:00 Anion Gap 10 (8-16) 10/19/17 07:00 BUN 16 mg/dL (7-18) D 10/19/17 07:00 Creatinine 1.0 mg/dL (0.7-1.3) D 10/19/17 07:00 Creat Clearance w eGFR > 60 (>60) 10/19/17 07:00 Random Glucose 84 mg/dL (74-106) 10/19/17 07:00 Calcium 8.4 mg/dL (8.5-10.1) L 10/19/17 07:00 Total Bilirubin 0.2 mg/dL (0.2-1.0) D 10/19/17 07:00 AST 13 U/L (15-37) L D 10/19/17 07:00 ALT 25 U/L (12-78) 10/19/17 07:00 Alkaline Phosphatase 93 U/L (45-117) 10/19/17 07:00 Total Protein 7.0 g/dl (6.4-8.2) 10/19/17 07:00 Albumin 3.0 g/dl (3.4-5.0) L 10/19/17 07:00 Urine Color Yellow 10/16/17 23:20 Urine Appearance Clear 10/16/17 23:20 Urine pH 6.0 (5.0-8.0) 10/16/17 23:20 Ur Specific [place] 1.016 (1.001-1.035) 10/16/17 23:20 Urine Protein 1+ (NEGATIVE) H 10/16/17 23:20 Urine Glucose (UA) Negative (NEGATIVE) 10/16/17 23:20 Urine Ketones Negative (NEGATIVE) 10/16/17 23:20 Urine Blood Negative (NEGATIVE) 10/16/17 23:20 Urine Nitrite Negative (NEGATIVE) 10/16/17 23:20 Urine Bilirubin Negative (NEGATIVE) 10/16/17 23:20 Urine Urobilinogen Negative mg/dL (0.2-1.0) 10/16/17 23:20 Ur Leukocyte Esterase Negative (NEGATIVE) 10/16/17 23:20 Urine WBC (Auto) 2 /hpf (3-5) 10/16/17 23:20 Urine RBC (Auto) 1 /hpf (0-3) 10/16/17 23:20 Ur Epithelial Cells Rare /HPF (FEW) 10/16/17 23:20 Urine Mucus Few 10/16/17 23:20 Valproic Acid < 3.000 ug/ml (50-100) L 10/18/17 06:00 RPR Titer Nonreactive (NONREACTIVE) 10/17/17 07:00 lab noted - Treatment Hospital Course: Detox Protocol Followed, Detoxed Safely, Responded well, Discharged Condition Good, Rehab Referral Accepted - Medication Discharge Medications: Ambulatory Orders Amlodipine Besylate [Norvasc -] 10 mg PO DAILY #30 tablet 01/26/16 Fluticasone/Salmeterol [Advair 250-50 Diskus] 1 each IH BID #1 disk.w.dev Tamsulosin HCl [Flomax] 0.4 mg PO DAILY #14 capsule 04/14/17 Valacyclovir HCl [Valtrex -] 500 mg PO DAILY #14 tablet 04/14/17 Elviteg/Cob/Emtri/Tenof Alafen [Genvoya (Non-Formulary)] 1 each PO DAILY Sulfamethoxazole/Trimethoprim [Bactrim Ds -] 1 tab PO DAILY #30 tablet 08/06/17 Albuterol Sulfate Inhaler - [Ventolin HFA Inhaler -] 2 puff IH Q4H PRN 09/06/17 Aspirin 81 mg PO DAILY 10/16/17 Divalproex [Depakote -] 250 mg PO BID #60 tablet.ec 10/17/17 Quetiapine Fumarate [Seroquel] 100 mg PO HS #30 tablet 10/17/17 - Diagnosis (1) Alcohol dependence with uncomplicated withdrawal Status: Acute - AMA Did Patient Leave Against Medical Advice: No
== END 2017-10-20 12:50 | disposition other institution (70) | DRG 774 ==
LOC: YASAS 13:35 → Y6N 16:46
PROVIDERS: ADMIT Internal Medicine; ATTEND Internal Medicine
PROC: HZ2ZZZZ Detoxification Services for Substance Abuse Treatment (ICD-10-PCS; principal; 2017-10-16)
DX: F10.230 Alcohol dependence with withdrawal, uncomplicated (principal); F14.20 Cocaine dependence, uncomplicated; F17.213 Nicotine dependence, cigarettes, with withdrawal; F31.9 Bipolar disorder, unspecified; F19.24 Other psychoactive substance dependence with psychoactive substance-induced mood disorder; F19.282 Other psychoactive substance dependence with psychoactive substance-induced sleep disorder; F25.0 Schizoaffective disorder, bipolar type; B20 Human immunodeficiency virus [HIV] disease; B18.2 Chronic viral hepatitis C; N39.0 Urinary tract infection, site not specified; N40.0 Benign prostatic hyperplasia without lower urinary tract symptoms; K74.60 Unspecified cirrhosis of liver; I10 Essential (primary) hypertension; E78.00 Pure hypercholesterolemia, unspecified; Z87.898 Personal history of other specified conditions
CPT/HCPCS: 36415; 80053; 80164; 81003; 81015; 85027; 86593; 93005; 93010

== ENCOUNTER 2017-10-20 13:12 | Inpatient (IN) | payer OTHER ==
[2017-10-20] MEDS ORDERED: ALBUTEROL SO4 18 GM HFA INHALER IH PRN (15:54)
--- NOTE | 2017-10-20 16:06 | HP ---
[facility] Rehab Assess/Revision - Admission History Admitted to Rehab from: [facility] (COMPLETED DETOX TODAY ON ) Date of Admission to Rehab: 10/20/17 - Findings Detox History & Physical reviewed: Yes Concur with findings: Yes Inpatient Rehab Admission - Initial Determination Are CD services needed?: Yes Free of communicable disease: Yes Not in need of hospitalization: Yes - Rehab Admission Criteria Patient is meeting Inpatient Rehab admission criteria:: Yes
[2017-10-20] MEDS ORDERED: P-EPHED 60MG/TRIPROLIDI 2.5MG TABLET PO PRN (16:08)
[2017-10-20] MEDS ORDERED: MAG HYDROX/AL HYDROX/SIMETH 30 ML UNIT-DOSE CUP PO PRN (16:08)
[2017-10-20] MEDS ORDERED: guaiFENesin/D-METHORPHAN HB 10 ML UNIT-DOSE CUPS PO PRN (16:08)
[2017-10-20] MEDS ORDERED: MENTHOL/PHENOL 1 EACH UD MM PRN (16:08)
[2017-10-20] MEDS ORDERED: LOPERAMIDE HCL 2 MG CAPSULE PO PRN (16:08)
[2017-10-20] MEDS ORDERED: hydrOXYzine PAMOATE 50 MG CAPSULE (FP) PO PRN (16:08)
[2017-10-20] MEDS ORDERED: ACETAMINOPHEN 325 MG TABLET (FP) PO PRN (16:08)
[2017-10-20] MEDS ORDERED: IBUPROFEN 400 MG TABLET (FP) PO PRN (16:08)
[2017-10-20] MEDS ORDERED: MAGNESIUM HYDROX 2400MG/30ML ORAL SUSPENSION 30 ML CUP PO PRN (16:08)
[2017-10-20] MEDS ORDERED: MAGNESIUM CITRATE 300 ML BOTTLE PO PRN (16:08)
[2017-10-20] MEDS: NICOTINE 21 MG/24 HOURS TOPICAL PATCH TD SCH (18:08)
[2017-10-20] MEDS: QUEtiapine FUMARATE 100 MG TABLET (FP) PO SCH (22:15)
[2017-10-20] MEDS: THIAMINE HCL 100 MG TABLET (FP) PO SCH (22:15)
[2017-10-21] MEDS: ELVITEG/COB/EMTRI/TENOF (GENVOYA) TABLET (NF) PO SCH (07:46)
[2017-10-21] MEDS ORDERED: SULFAMETHOXAZOLE/TRIMETHOPRIM 800MG/160MG D.S. TABLET PO SCH (10:00)
[2017-10-21] MEDS: valACYclovir HCL 500 MG TABLET (FP) PO SCH (10:09)
[2017-10-21] MEDS: PRENATAL VITAMINS W/ FOLIC ACID TABLET (FP) PO SCH (10:09)
[2017-10-21] MEDS: ASPIRIN 81 MG CHEWABLE TABLETS PO SCH (10:09)
[2017-10-21] MEDS: amLODIPine BESYLATE 10 MG TABLET (FP) PO SCH (10:09)
[2017-10-21] MEDS: TAMSULOSIN HCL 0.4 MG CAP.ER.24H (FP) PO SCH (10:09)
[2017-10-21] MEDS: NICOTINE 21 MG/24 HOURS TOPICAL PATCH TD SCH (10:10)
--- NOTE | 2017-10-21 12:00 | HP ---
Psychiatrist Admission - Data Date of interview: 10/21/17 Admission source: 6N Identifying data: This is one of the several [facility] admission for this 57 years old male, unemployed on HASA, living in the [place] independent housing. Medical History: HIV+ since 1985, herpes genitalis, anemia, bronchial asthma, hypertension, hepatitis C, BPH (benign prostatic hyperplasia) cirrhosis of the liver, genital herpes, syphilis and surgery for laceration right wrist in 1983. Smokes cigarettes 1/2 ppd Psychiatric History: Patient reports first psychiatric contact at age of 9 to address hyperactivity and was diagnosed as ADHD, at [facility] if 17 with Schizophrenia, reports more than 10 psychiatric hospitalizations with most recent at [facility] in 2018, non-compliant with medications and aftercare, reports he takes medication when in the hospital and stops when out of the hospital, states he was precribed seroquel 100 mg po hs and depakote 250 mg po bid, klonopin 2 mg po bid at [facility] , several past suicidal attempts (cut his wrists). Seen by while in detox and restarted depakote and seroquel. Physical/Sexual Abuse/Trauma History: denies history of sexual, physical and verbal abuse. Vital Signs: Vital Signs - 24 hr 10/21/17 10/21/17 03:30 07:08 Temperature 97.4 F L Pulse Rate 71 Respiratory 20 18 Rate Blood Pressure 131/81 Allergies/Adverse Reactions: Allergies Allergy/AdvReac Type Severity Reaction Status Date / Time chlordiazepoxide HCl Allergy Severe Rash Verified 10/20/17 15:10 [From Librium] Date of last physical exam: 10/16/17 Concur with the findings of this exam: Yes - Substance Abuse/Tx History Hx Alcohol Use: Yes (age at first use 18,vodka 1 pint, beer 3-4 40 oz cans) Hx Substance Use: Yes Substance Use Type: Cocaine ("every other day" $200) Hx Substance Use Treatment: Yes (several [facility] detox/rehab.) Mental Status Exam - Mental Status Exam Alert and Oriented to: Time, Place, Person Cognitive Function: Good Patient Appearance: Well Groomed Mood: Sad Affect: Appropriate, Mood Congruent Patient Behavior: Appropriate, Cooperative Speech Pattern: Clear, Appropriate Voice Loudness: Normal Thought Process: Intact, Goal Oriented Thought Disorder: Not Present Hallucinations: Denies Suicidal Ideation: Denies Homicidal Ideation: Denies Insight/Judgement: Fair Sleep: Fair Appetite: Fair Muscle strength/Tone: Normal Gait/Station: Normal Psychiatric Findings - Problem List ([place] 1, 2,3) (1) Alcohol dependence Current Visit: Yes Status: Acute (2) Nicotine dependence Current Visit: No Status: Acute Qualifiers: Nicotine product type: cigarettes Substance use status: in withdrawal Qualified Code(s): F17.213 - Nicotine dependence, cigarettes, with withdrawal (3) HIV (human immunodeficiency virus infection) Current Visit: No Status: Chronic (4) Hepatitis C Current Visit: No Status: Chronic Qualifiers: Viral hepatitis chronicity: chronic Hepatic coma status: without hepatic coma Qualified Code(s): B18.2 - Chronic viral hepatitis C (5) History of herpes genitalis Current Visit: No Status: Chronic (6) Schizoaffective disorder Current Visit: No Status: Chronic Qualifiers: Schizoaffective disorder type: bipolar Qualified Code(s): F25.0 - Schizoaffective disorder, bipolar type Comment: As per self-report and old records.No compliance with OPD care. (7) Cocaine dependence Current Visit: No Status: Chronic Qualifiers: Substance use status: uncomplicated Qualified Code(s): F14.20 - Cocaine dependence, uncomplicated - Initial Treatment Plan Initial Treatment Plan: will continue his current medications, monitor progress as needed.
--- NOTE | 2017-10-21 12:37 | PN ---
S Progress Note (SOAP) Subjective: Patietn reprots burning on urintation wants bactrim bid for uti as it was prescribed in detox Objective: 10/21/17 12:36 Vital Signs - 24 hr 10/21/17 10/21/17 03:30 07:08 Temperature 97.4 F L Pulse Rate 71 Respiratory 20 18 Rate Blood Pressure 131/81 labs reviewed Assessment: 10/21/17 12:36 start bactrim ds 1 bid for uti x1 week then d/c and send urine culture, pateint reports t cells in 300s does not need pcp prophylaxis, dieatary consult ordred ensure 120ml pobid a pateint request.
[2017-10-21] MEDS: SULFAMETHOXAZOLE/TRIMETHOPRIM 800MG/160MG D.S. TABLET PO SCH (21:20)
[2017-10-21] MEDS: THIAMINE HCL 100 MG TABLET (FP) PO SCH (21:20)
[2017-10-21] MEDS: DIVALPROEX SODIUM 250 MG TABLET E.C. (FP) PO SCH (21:20)
[2017-10-21] MEDS: QUEtiapine FUMARATE 100 MG TABLET (FP) PO SCH (21:20)
[2017-10-22] MEDS: ELVITEG/COB/EMTRI/TENOF (GENVOYA) TABLET (NF) PO SCH (08:05)
[2017-10-22] MEDS: PRENATAL VITAMINS W/ FOLIC ACID TABLET (FP) PO SCH (10:11)
[2017-10-22] MEDS: ASPIRIN 81 MG CHEWABLE TABLETS PO SCH (10:12)
[2017-10-22] MEDS: amLODIPine BESYLATE 10 MG TABLET (FP) PO SCH (10:12)
[2017-10-22] MEDS: DIVALPROEX SODIUM 250 MG TABLET E.C. (FP) PO SCH ×2 (10:12→21:22)
[2017-10-22] MEDS: SULFAMETHOXAZOLE/TRIMETHOPRIM 800MG/160MG D.S. TABLET PO SCH ×2 (10:12→21:22)
[2017-10-22] MEDS: valACYclovir HCL 500 MG TABLET (FP) PO SCH (10:12)
[2017-10-22] MEDS: TAMSULOSIN HCL 0.4 MG CAP.ER.24H (FP) PO SCH (10:12)
[2017-10-22] MEDS: NICOTINE 21 MG/24 HOURS TOPICAL PATCH TD SCH (10:13)
[2017-10-22] MEDS: HYDROCORTISONE 1% TOPICAL CREAM 30 GM TUBE TP PRN (10:14)
[2017-10-22] MEDS: QUEtiapine FUMARATE 100 MG TABLET (FP) PO SCH (21:22)
[2017-10-22] MEDS: THIAMINE HCL 100 MG TABLET (FP) PO SCH (21:23)
[2017-10-23] MEDS: ELVITEG/COB/EMTRI/TENOF (GENVOYA) TABLET (NF) PO SCH (07:05)
[2017-10-23] MEDS: ASPIRIN 81 MG CHEWABLE TABLETS PO SCH (10:02)
[2017-10-23] MEDS: valACYclovir HCL 500 MG TABLET (FP) PO SCH (10:02)
[2017-10-23] MEDS: TAMSULOSIN HCL 0.4 MG CAP.ER.24H (FP) PO SCH (10:02)
[2017-10-23] MEDS: DIVALPROEX SODIUM 250 MG TABLET E.C. (FP) PO SCH ×2 (10:02→21:22)
[2017-10-23] MEDS: SULFAMETHOXAZOLE/TRIMETHOPRIM 800MG/160MG D.S. TABLET PO SCH ×2 (10:02→21:22)
[2017-10-23] MEDS: PRENATAL VITAMINS W/ FOLIC ACID TABLET (FP) PO SCH (10:03)
[2017-10-23] MEDS: NICOTINE 21 MG/24 HOURS TOPICAL PATCH TD SCH (10:03)
[2017-10-23] MEDS: amLODIPine BESYLATE 10 MG TABLET (FP) PO SCH (10:03)
[2017-10-23] MEDS: THIAMINE HCL 100 MG TABLET (FP) PO SCH (21:22)
[2017-10-23] MEDS: QUEtiapine FUMARATE 100 MG TABLET (FP) PO SCH (21:22)
[2017-10-24] MEDS: ELVITEG/COB/EMTRI/TENOF (GENVOYA) TABLET (NF) PO SCH (09:00)
[2017-10-24] MEDS: SULFAMETHOXAZOLE/TRIMETHOPRIM 800MG/160MG D.S. TABLET PO SCH (10:16)
[2017-10-24] MEDS: ASPIRIN 81 MG CHEWABLE TABLETS PO SCH (10:16)
[2017-10-24] MEDS: TAMSULOSIN HCL 0.4 MG CAP.ER.24H (FP) PO SCH (10:16)
[2017-10-24] MEDS: PRENATAL VITAMINS W/ FOLIC ACID TABLET (FP) PO SCH (10:16)
[2017-10-24] MEDS: DIVALPROEX SODIUM 250 MG TABLET E.C. (FP) PO SCH ×2 (10:16→21:27)
[2017-10-24] MEDS: amLODIPine BESYLATE 10 MG TABLET (FP) PO SCH (10:16)
[2017-10-24] MEDS: valACYclovir HCL 500 MG TABLET (FP) PO SCH (10:17)
[2017-10-24] MEDS: NICOTINE 21 MG/24 HOURS TOPICAL PATCH TD SCH (10:17)
--- NOTE | 2017-10-24 14:00 | PN ---
S Progress Note (SOAP) Subjective: no urinary sympotms, completed course of bactrim Objective: 10/24/17 13:59 Vital Signs - 24 hr 10/24/17 10/24/17 10/24/17 00:30 03:30 06:59 Temperature 97.3 F L Pulse Rate 75 Respiratory 18 18 18 Rate Blood Pressure 129/87 labs reveiwed, repeat urinalysis post treatment Assessment: 10/24/17 13:59 d/c bactim repeat u/a
[2017-10-24] MEDS: THIAMINE HCL 100 MG TABLET (FP) PO SCH (21:27)
[2017-10-24] MEDS: QUEtiapine FUMARATE 100 MG TABLET (FP) PO SCH (21:27)
[2017-10-25] MEDS: ELVITEG/COB/EMTRI/TENOF (GENVOYA) TABLET (NF) PO SCH (07:59)
[2017-10-25] MEDS: amLODIPine BESYLATE 10 MG TABLET (FP) PO SCH (10:12)
[2017-10-25] MEDS: valACYclovir HCL 500 MG TABLET (FP) PO SCH (10:12)
[2017-10-25] MEDS: TAMSULOSIN HCL 0.4 MG CAP.ER.24H (FP) PO SCH (10:12)
[2017-10-25] MEDS: ASPIRIN 81 MG CHEWABLE TABLETS PO SCH (10:12)
[2017-10-25] MEDS: DIVALPROEX SODIUM 250 MG TABLET E.C. (FP) PO SCH ×2 (10:12→21:21)
[2017-10-25] MEDS: PRENATAL VITAMINS W/ FOLIC ACID TABLET (FP) PO SCH (10:12)
[2017-10-25] MEDS: NICOTINE 21 MG/24 HOURS TOPICAL PATCH TD SCH (10:13)
[2017-10-25] MEDS: HYDROCORTISONE 1% TOPICAL CREAM 30 GM TUBE TP PRN (10:16)
[2017-10-25 13:26] LABS: URINE APPEARANCE CLEAR; URINE BILIRUBIN NEGATIVE (NEGATIVE); URINE BLOOD NEGATIVE (NEGATIVE); URINE COLOR LTYELLOW; URINE GLUCOSE (UA) NEGATIVE (NEGATIVE); URINE KETONE NEGATIVE (NEGATIVE); URINE LEUK ESTERASE NEGATIVE (NEGATIVE); URINE NITRITE NEGATIVE (NEGATIVE); URINE PROTEIN NEGATIVE (NEGATIVE); URINE UROBILINOGEN NEGATIVE mg/dL (0.2-1.0)
[2017-10-25] MEDS: QUEtiapine FUMARATE 100 MG TABLET (FP) PO SCH (21:21)
[2017-10-25] MEDS: THIAMINE HCL 100 MG TABLET (FP) PO SCH (21:21)
[2017-10-26] MEDS: ELVITEG/COB/EMTRI/TENOF (GENVOYA) TABLET (NF) PO SCH (07:35)
[2017-10-26] MEDS: ASPIRIN 81 MG CHEWABLE TABLETS PO SCH (10:22)
[2017-10-26] MEDS: amLODIPine BESYLATE 10 MG TABLET (FP) PO SCH (10:22)
[2017-10-26] MEDS: PRENATAL VITAMINS W/ FOLIC ACID TABLET (FP) PO SCH (10:22)
[2017-10-26] MEDS: valACYclovir HCL 500 MG TABLET (FP) PO SCH (10:22)
[2017-10-26] MEDS: TAMSULOSIN HCL 0.4 MG CAP.ER.24H (FP) PO SCH (10:22)
[2017-10-26] MEDS: DIVALPROEX SODIUM 250 MG TABLET E.C. (FP) PO SCH ×2 (10:23→21:24)
[2017-10-26] MEDS: NICOTINE 21 MG/24 HOURS TOPICAL PATCH TD SCH (10:23)
[2017-10-26] MEDS: QUEtiapine FUMARATE 100 MG TABLET (FP) PO SCH (21:24)
[2017-10-26] MEDS: THIAMINE HCL 100 MG TABLET (FP) PO SCH (21:24)
[2017-10-27] MEDS: ELVITEG/COB/EMTRI/TENOF (GENVOYA) TABLET (NF) PO SCH (08:20)
[2017-10-27] MEDS: ASPIRIN 81 MG CHEWABLE TABLETS PO SCH (10:10)
[2017-10-27] MEDS: valACYclovir HCL 500 MG TABLET (FP) PO SCH (10:11)
[2017-10-27] MEDS: amLODIPine BESYLATE 10 MG TABLET (FP) PO SCH (10:11)
[2017-10-27] MEDS: PRENATAL VITAMINS W/ FOLIC ACID TABLET (FP) PO SCH (10:11)
[2017-10-27] MEDS: NICOTINE 21 MG/24 HOURS TOPICAL PATCH TD SCH (10:11)
[2017-10-27] MEDS: TAMSULOSIN HCL 0.4 MG CAP.ER.24H (FP) PO SCH (10:11)
[2017-10-27] MEDS: DIVALPROEX SODIUM 250 MG TABLET E.C. (FP) PO SCH ×2 (10:11→21:23)
[2017-10-27] MEDS: NICOTINE POLACRILEX 4 MG GUM BUC PRN (10:12)
[2017-10-27] MEDS: THIAMINE HCL 100 MG TABLET (FP) PO SCH (21:23)
[2017-10-27] MEDS: QUEtiapine FUMARATE 100 MG TABLET (FP) PO SCH (21:24)
[2017-10-28] MEDS: ELVITEG/COB/EMTRI/TENOF (GENVOYA) TABLET (NF) PO SCH (07:54)
[2017-10-28] MEDS: NICOTINE 21 MG/24 HOURS TOPICAL PATCH TD SCH (10:10)
[2017-10-28] MEDS: ASPIRIN 81 MG CHEWABLE TABLETS PO SCH (10:10)
[2017-10-28] MEDS: DIVALPROEX SODIUM 250 MG TABLET E.C. (FP) PO SCH ×2 (10:10→21:28)
[2017-10-28] MEDS: valACYclovir HCL 500 MG TABLET (FP) PO SCH (10:10)
[2017-10-28] MEDS: amLODIPine BESYLATE 10 MG TABLET (FP) PO SCH (10:10)
[2017-10-28] MEDS: PRENATAL VITAMINS W/ FOLIC ACID TABLET (FP) PO SCH (10:10)
[2017-10-28] MEDS: TAMSULOSIN HCL 0.4 MG CAP.ER.24H (FP) PO SCH (10:10)
[2017-10-28] MEDS: THIAMINE HCL 100 MG TABLET (FP) PO SCH (21:28)
[2017-10-28] MEDS: QUEtiapine FUMARATE 100 MG TABLET (FP) PO SCH (21:28)
[2017-10-29] MEDS: ELVITEG/COB/EMTRI/TENOF (GENVOYA) TABLET (NF) PO SCH (07:42)
[2017-10-29] MEDS: DIVALPROEX SODIUM 250 MG TABLET E.C. (FP) PO SCH ×2 (10:18→21:44)
[2017-10-29] MEDS: amLODIPine BESYLATE 10 MG TABLET (FP) PO SCH (10:18)
[2017-10-29] MEDS: NICOTINE 21 MG/24 HOURS TOPICAL PATCH TD SCH (10:18)
[2017-10-29] MEDS: ASPIRIN 81 MG CHEWABLE TABLETS PO SCH (10:18)
[2017-10-29] MEDS: valACYclovir HCL 500 MG TABLET (FP) PO SCH (10:18)
[2017-10-29] MEDS: TAMSULOSIN HCL 0.4 MG CAP.ER.24H (FP) PO SCH (10:18)
[2017-10-29] MEDS: PRENATAL VITAMINS W/ FOLIC ACID TABLET (FP) PO SCH (10:18)
[2017-10-29] MEDS: QUEtiapine FUMARATE 100 MG TABLET (FP) PO SCH (21:44)
[2017-10-29] MEDS: THIAMINE HCL 100 MG TABLET (FP) PO SCH (21:44)
[2017-10-30] MEDS: ELVITEG/COB/EMTRI/TENOF (GENVOYA) TABLET (NF) PO SCH (07:13)
[2017-10-30] MEDS: TAMSULOSIN HCL 0.4 MG CAP.ER.24H (FP) PO SCH (10:29)
[2017-10-30] MEDS: amLODIPine BESYLATE 10 MG TABLET (FP) PO SCH (10:29)
[2017-10-30] MEDS: DIVALPROEX SODIUM 250 MG TABLET E.C. (FP) PO SCH ×2 (10:29→21:56)
[2017-10-30] MEDS: valACYclovir HCL 500 MG TABLET (FP) PO SCH (10:29)
[2017-10-30] MEDS: PRENATAL VITAMINS W/ FOLIC ACID TABLET (FP) PO SCH (10:29)
[2017-10-30] MEDS: ASPIRIN 81 MG CHEWABLE TABLETS PO SCH (10:29)
[2017-10-30] MEDS: NICOTINE POLACRILEX 4 MG GUM BUC PRN (10:30)
[2017-10-30] MEDS: NICOTINE 21 MG/24 HOURS TOPICAL PATCH TD SCH (10:30)
[2017-10-30 11:38] VITALS: BP 131/84
[2017-10-30] MEDS: QUEtiapine FUMARATE 100 MG TABLET (FP) PO SCH (21:56)
[2017-10-30] MEDS: THIAMINE HCL 100 MG TABLET (FP) PO SCH (21:56)
[2017-10-31 07:02] VITALS: PULSE 70; TEMP 97.2
[2017-10-31] MEDS: ELVITEG/COB/EMTRI/TENOF (GENVOYA) TABLET (NF) PO SCH (07:56)
--- NOTE | 2017-10-31 09:37 | PN ---
Psychiatric Progress Note Vital Signs: Vital Signs Period Temp Pulse Resp BP Sys/Blank Pulse Ox Last 24 Hr 97.2 F 70-72 16-20 131-131/84-84 Date of Session: 10/31/17 Chief Complaint:: discharge visit HPI: Patient has addressed alcohol, cocaine, nicotine dependence comorbid schizoaffective disorder. ROS: HIV+ since 1985, herpes genitalis, anemia, bronchial asthma, hypertension , hepatitis C, BPH (benign prostatic hyperplasia) cirrhosis of the liver, genital herpes medically managed. Current Medications: Active Medications Generic Name Dose Route Start Last Admin Trade Name Freq PRN Reason Stop Dose Admin Acetaminophen 650 mg 10/20/17 16:08 Tylenol - PO Q4H PRN FEVER Al Hydroxide/Mg Hydroxide 30 ml 10/20/17 16:08 Mylanta Oral Suspension - PO Q6H PRN DYSPEPSIA Albuterol Sulfate 2 puff 10/20/17 15:54 Ventolin Hfa Inhaler - IH Q4H PRN ASTHMA Amlodipine Besylate 10 mg 10/21/17 10:00 10/30/17 10:29 Norvasc - PO 10 mg DAILY MAYANK Administration Aspirin 81 mg 10/21/17 10:00 10/30/17 10:29 Asa - PO 81 mg DAILY MAYANK Administration Divalproex Sodium 250 mg 10/21/17 22:00 10/30/17 21:56 Depakote - PO 250 mg BID MAYANK Administration Elvitegravir/Cobicis/Emtricit/Tenof 1 tab 10/21/17 08:00 10/31/17 07:56 Genvoya (Non-Formulary) PO 1 tab DAILY@0800 MAYANK Administration Eucalyptus/Menthol/Phenol/Sorbitol 1 each 10/20/17 16:08 Cepastat Lozenge - MM Q4H PRN SORE THROAT Guaifenesin 10 ml 10/20/17 16:08 Robitussin Dm - PO Q6H PRN COUGH Hydrocortisone 1 applic 10/21/17 22:44 10/25/17 10:16 Hytone 1% Cream - TP 1 applic QID PRN Administration prutitus Hydroxyzine Pamoate 50 mg 10/20/17 16:08 10/21/17 14:46 Vistaril - PO 50 mg Q4H PRN Administration AGITATION Ibuprofen 400 mg 10/20/17 16:08 Motrin - PO Q6H PRN Pain Level 4-6 Loperamide HCl 4 mg 10/20/17 16:08 Imodium - PO Q6H PRN DIARRHEA Magnesium Citrate 300 ml 10/20/17 16:08 Citroma - PO Q48H PRN CONSTIPATION Magnesium Hydroxide 30 ml 10/20/17 16:08 Milk Of Magnesia - PO DAILY PRN CONSTIPATION Nicotine 21 mg 10/20/17 16:30 10/30/17 10:30 Nicoderm Patch - TD Not Given DAILY MAYANK Nicotine Polacrilex 4 mg 10/20/17 16:08 10/30/17 10:30 Nicorette Gum - BUC 4 mg Q2H PRN Administration NICOTINE REPLACEMENT RX Multivit/Folic Acid/Iron 1 tab 10/21/17 10:00 10/30/17 10:29 Vitamins (Sjr) - PO 1 tab DAILY MAYANK Administration Pseudoephedrine/Triprolidine 1 combo 10/20/17 16:08 Actifed - PO TID PRN NASAL CONGESTION Quetiapine Fumarate 100 mg 10/20/17 22:00 10/30/17 21:56 Seroquel - PO 100 mg HS MAYANK Administration Tamsulosin HCl 0.4 mg 10/21/17 10:00 10/30/17 10:29 Flomax - PO 0.4 mg DAILY MAYANK Administration Thiamine HCl 100 mg 10/20/17 22:00 10/30/17 21:56 Vitamin B1 - PO 100 mg HS MAYANK Administration Valacyclovir HCl 500 mg 10/21/17 10:00 10/30/17 10:29 Valtrex - PO 500 mg DAILY MAYANK Administration Current Side Effect: No Lab tests ordered: No Lab tests reviewed: Yes Provider note:: Olga has completed to day this program and met his identified goals, will continue to address his issues at [facility] outpatient treatment program. Patient gained insights into his problems, understands the negative consequences of addiction and motivated to continue maintain abstinence. He focused on importance of changing attitude and utization all supports available to prevent relapses. Depakote and Seroquel well tolerated and scripts provided for 30 days, patient will f/u by a psychiatrist at [facility] OPD, stable for discharge today. Total face to face time:: 25 Mental Status Exam - Mental Status Exam Alert and Oriented to: Time, Place, Person Cognitive Function: Good Patient Appearance: Well Groomed Mood: Hopeful Affect: Appropriate, Mood Congruent Patient Behavior: Appropriate, Cooperative Speech Pattern: Clear, Appropriate Voice Loudness: Normal Thought Process: Intact, Goal Oriented Thought Disorder: Not Present Hallucinations: Denies Suicidal Ideation: Denies Homicidal Ideation: Denies Insight/Judgement: Fair Sleep: Fair Appetite: Good Muscle strength/Tone: Normal Gait/Station: Normal Psychiatric Treatment Plan - Problem List (2) Nicotine dependence Qualifiers: Nicotine product type: cigarettes Substance use status: in withdrawal Qualified Code(s): F17.213 - Nicotine dependence, cigarettes, with withdrawal (4) Hepatitis C Qualifiers: Viral hepatitis chronicity: chronic Hepatic coma status: without hepatic coma Qualified Code(s): B18.2 - Chronic viral hepatitis C (6) Schizoaffective disorder Qualifiers: Schizoaffective disorder type: bipolar Qualified Code(s): F25.0 - Schizoaffective disorder, bipolar type Comment: As per self-report and old records.No compliance with OPD care. (7) Cocaine dependence Qualifiers: Substance use status: uncomplicated Qualified Code(s): F14.20 - Cocaine dependence, uncomplicated
[2017-10-31] MEDS: DIVALPROEX SODIUM 250 MG TABLET E.C. (FP) PO SCH (10:35)
[2017-10-31] MEDS: ASPIRIN 81 MG CHEWABLE TABLETS PO SCH (10:35)
[2017-10-31] MEDS: NICOTINE 21 MG/24 HOURS TOPICAL PATCH TD SCH (10:36)
[2017-10-31] MEDS: amLODIPine BESYLATE 10 MG TABLET (FP) PO SCH (10:36)
[2017-10-31] MEDS: PRENATAL VITAMINS W/ FOLIC ACID TABLET (FP) PO SCH (10:36)
[2017-10-31] MEDS: valACYclovir HCL 500 MG TABLET (FP) PO SCH (10:36)
[2017-10-31] MEDS: TAMSULOSIN HCL 0.4 MG CAP.ER.24H (FP) PO SCH (10:36)
== END 2017-10-31 10:50 | disposition home or self-care (01) | DRG 772 ==
LOC: YASAS 13:12 → Y5N 13:13
PROVIDERS: ADMIT Psychiatry & Neurology Psychiatry; ATTEND Psychiatry & Neurology Psychiatry
PROC: HZ42ZZZ Group Counseling for Substance Abuse Treatment, Cognitive-Behavioral (ICD-10-PCS; principal; 2017-10-20)
DX: F10.20 Alcohol dependence, uncomplicated (principal); F14.20 Cocaine dependence, uncomplicated; F17.210 Nicotine dependence, cigarettes, uncomplicated; F25.0 Schizoaffective disorder, bipolar type; D64.9 Anemia, unspecified; N40.0 Benign prostatic hyperplasia without lower urinary tract symptoms; Z21 Asymptomatic human immunodeficiency virus [HIV] infection status; Z86.19 Personal history of other infectious and parasitic diseases; Z87.438 Personal history of other diseases of male genital organs
CPT/HCPCS: 81003

== ENCOUNTER 2017-12-23 12:24 | Inpatient (IN) | payer OTHER ==
[2017-12-23 13:33] VITALS: BMI 23.5
--- NOTE | 2017-12-23 16:42 | HP ---
CIWA Score - CIWA Score Nausea/Vomitin-No Nausea/No Vomiting Muscle Tremors: 3 Anxiety: 4-Mod. Anxious/Guarded Agitation: 3 Paroxysmal Sweats: 3 Orientation: 2-Disoriented Date<2 days Tacttile Disturbances: 0-None Auditory Disturbances: 2-Mild Harshness/Frighten Visual Disturbances: 0-None Headache: 2-Mild CIWA-Ar Total Score: 19 Admission ROS [facility] - HPI Chief Complaint: "I need help for my drug and alcohol problem." Patient is here to Detox from Alcohol. Allergies/Adverse Reactions: Allergies Allergy/AdvReac Type Severity Reaction Status Date / Time chlordiazepoxide HCl Allergy Severe Rash Verified 12/23/17 19:24 [From Librium] History of Present Illness: Patient is a 57 YO male here to Detox from Alcohol. Patient has had several previous Detox / Rehab admissions at [facility] in the past (last: 09/2017). Longest period of non-drug use in recent years: approx. 5 years ([id number]). Exam Limitations: No Limitations - Ebola screening Have you traveled outside of the country in the last 21 days: No Have you had contact with anyone from an Ebola affected area: No Have you been sick,other than usual withdrawal symptoms: No Do you have a fever: No - Review of Systems Constitutional: Diaphoresis, Loss of Appetite, Malaise, Night Sweats, Changes in sleep, Unintentional Wgt. Loss (Lost approx. 20 lbs. over the last two months.) EENT: reports: Blurred Vision Respiratory: reports: SOB with Exertion Cardiac: reports: No Symptoms Reported GI: reports: Poor Appetite : reports: No Symptoms Reported Musculoskeletal: reports: Joint Pain, Muscle Pain, Joint Stiffness Integumentary: reports: No Symptoms Reported Neuro: reports: Tremors Endocrine: reports: No Symptoms Reported Hematology: reports: No Symptoms Reported Psychiatric: reports: Judgement Intact, Mood/Affect Appropiate, Orientated x3, Anxious, Depressed (On meds., non-compliant for last 1 month.) Other Systems: Reviewed and Negative Patient History - Patient Medical History Hx Anemia: No Hx Asthma: Yes (On meds.) Hx Chronic Obstructive Pulmonary Disease (COPD): No Hx Cancer: No Hx Cardiac Disorders: No Hx Congestive Heart Failure: No Hx Hypertension: Yes (On med.) Hx Hypercholesterolemia: Yes (No med.) Hx Pacemaker: No HX Cerebrovascular Accident: No Hx Seizures: No Hx Dementia: No Hx Diabetes: No Hx Gastrointestinal Disorders: No Hx Liver Disease: Yes (HEP C, CIRRHOSIS) Hx Genitourinary Disorders: Yes (BPH, Takes Flomax.) Hx Sexually Transmitted Disorders: No Hx Renal Disease (ESRD): No Hx Thyroid Disease: No Hx Human Immunodeficiency Virus (HIV): Yes (Genvoya; non compliant) Hx Hepatitis C: Yes (Treated in 2013; Completed, Uncertain if Cured.) Hx Depression: Yes (and Anxiety, Non-compliant with meds.) Hx Suicide Attempt: Yes (LAST EPISODE 1 YEAR AGO BY OD ing on pills. PATIENT DENIES CURRENT SI/HI.) Hx Bipolar Disorder: Yes (Meds., Non-compliant ) Hx Schizophrenia: Yes (Meds., Non-compliant ) Other Medical History: DENIES. - Patient Surgical History Past Surgical History: Yes Hx Neurologic Surgery: No Hx Cataract Extraction: No Hx Cardiac Surgery: No Hx Lung Surgery: No Hx Breast Surgery: No Hx Breast Biopsy: No Hx Abdominal Surgery: No Hx Appendectomy: No Hx Cholecystectomy: No Hx Genitourinary Surgery: No Hx Section: No Hx Orthopedic Surgery: No Other Surgical History: RIGHT WRIST SX in 1983 for a laceration Anesthesia Reaction: No - PPD History Previous Implant?: Yes Documented Results: Negative w/proof Implanted On Prior [facility] Admission?: Yes Date: 01/13/17 Results: 0 mm PPD to be Administered?: No - Reproductive History Patient is a Female of Child Bearing Age (11 -55 yrs old): No (PAITENT IS MALE.) - Smoking Cessation Smoking history: Current every day smoker Have you smoked in the past 12 months: Yes Aproximately how many cigarettes per day: 20 Cigars Per Day: 0 Hx Chewing Tobacco Use: No Initiated information on smoking cessation: Yes 'Breaking Loose' booklet given: 12/23/17 (GIVEN TO PATIENT.) - Substance & Tx. History Hx Alcohol Use: Yes Hx Substance Use: Yes Substance Use Type: Alcohol, Cocaine Hx Substance Use Treatment: Yes - Substances Abused Alcohol Route: Oral Frequency: Daily Amount used: 1 Pint Vodka, 6- 40 oz. beers. Age of first use: 17 Date of Last Use: 12/23/17 Crack Route: Smoking Frequency: 3-6 times per week Amount used: $200 - $300 Age of first use: 36 Date of Last Use: 12/22/17 Family Disease History - Family Disease History Family Disease History: Diabetes: Mother (.), Respiratory: Sister, Other : Father (addiction to heroin,), Mother Admission Physical Exam S - Vital Signs Vital Signs: Vital Signs - 24 hr 12/23/17 13:31 Temperature 97.8 F Pulse Rate 80 Respiratory 20 Rate Blood Pressure 142/80 - Physical General Appearance: Yes: No Apparent Distress, Nourished, Appropriately Dressed , Tremorous, Anxious HEENTM: Yes: Hearing grossly Normal, Normocephalic, Normal Voice, ROB, Pharynx Normal Respiratory: Yes: Chest Non-Tender, Lungs Clear, No Respiratory Distress, No Accessory Muscle Use Neck: Yes: No masses,lesions,Nodules, Supple, Trachea in good position Breast: Yes: Breast Exam Deferred Cardiology: Yes: Regular Rhythm, Regular Rate, S1, S2 Abdominal: Yes: Normal Bowel Sounds, Non Tender, Flat, Soft Genitourinary: Yes: Within Normal Limits Back: Yes: Normal Inspection Musculoskeletal: Yes: full range of Motion, Gait Steady, Joint Stiffness, Muscle Pain Extremities: Yes: Normal Capillary Refill, Tremors Neurological: Yes: Fully Oriented, Alert, Normal Mood/Affect, Normal Response Integumentary: Yes: Normal Color, Dry, Warm Lymphatic: Yes: Within Normal Limits - Diagnostic (1) Alcohol dependence with uncomplicated withdrawal Current Visit: Yes Status: Acute (2) Cocaine dependence Current Visit: Yes Status: Acute Qualifiers: Substance use status: uncomplicated Qualified Code(s): F14.20 - Cocaine dependence, uncomplicated (3) Nicotine dependence Current Visit: Yes Status: Chronic Qualifiers: Nicotine product type: cigarettes Substance use status: uncomplicated Qualified Code(s): F17.210 - Nicotine dependence, cigarettes, uncomplicated (4) AIDS (acquired immune deficiency syndrome) Current Visit: Yes Status: Chronic (5) Asthma Current Visit: Yes Status: Chronic Qualifiers: Asthma severity: mild Asthma persistence: unspecified Asthma complication type: uncomplicated Qualified Code(s): J45.909 - Unspecified asthma, uncomplicated (6) BPH (benign prostatic hypertrophy) Current Visit: Yes Status: Chronic Qualifiers: Lower urinary tract symptom presence: symptoms absent Qualified Code(s): N40.0 - Benign prostatic hyperplasia without lower urinary tract symptoms (7) Cirrhosis of liver Current Visit: Yes Status: Chronic Qualifiers: Hepatic cirrhosis type: unspecified hepatic cirrhosis Ascites presence: without ascites Qualified Code(s): K74.60 - Unspecified cirrhosis of liver (8) Hepatitis C Current Visit: Yes Status: Chronic Qualifiers: Viral hepatitis chronicity: chronic Hepatic coma status: without hepatic coma Qualified Code(s): B18.2 - Chronic viral hepatitis C (9) Hypertension Current Visit: Yes Status: Chronic Qualifiers: Hypertension type: essential hypertension Qualified Code(s): I10 - Essential (primary) hypertension (10) Hypercholesterolemia Current Visit: Yes Status: Chronic (11) Bipolar disorder Current Visit: Yes Status: Chronic Qualifiers: Active/Remission status: remission status unspecified Qualified Code(s): F31.9 - Bipolar disorder, unspecified (12) Anxiety Current Visit: Yes Status: Chronic (13) Schizophrenia Current Visit: Yes Status: Chronic Qualifiers: Schizophrenia type: unspecified Qualified Code(s): F20.9 - Schizophrenia, unspecified Cleared for Admission [facility] - Detox or Rehab [facility] Level of Care: Medically Managed Detox Regimen/Protocol: Valium [facility] Breath Alcohol Content Breath Alcohol Content: 0 Urine Drug Screen - Results Drug Screen Negative: No Urine Drug Screen Results: THC-Marijuana, ANGIE-Cocaine
[2017-12-23] MEDS ORDERED: MAGNESIUM CITRATE 300 ML BOTTLE PO PRN (17:03)
[2017-12-23] MEDS ORDERED: P-EPHED 60MG/TRIPROLIDI 2.5MG TABLET PO PRN (17:03)
[2017-12-23] MEDS ORDERED: diazePAM 5 MG TABLET PO ONE (17:03)
[2017-12-23] MEDS ORDERED: IBUPROFEN 400 MG TABLET (FP) PO PRN (17:03)
[2017-12-23] MEDS ORDERED: guaiFENesin/D-METHORPHAN HB 10 ML UNIT-DOSE CUPS PO PRN (17:03)
[2017-12-23] MEDS ORDERED: diazePAM 5 MG TABLET PO PRN (17:03)
[2017-12-23] MEDS ORDERED: NICOTINE POLACRILEX 2 MG GUM BC PRN (17:03)
[2017-12-23] MEDS ORDERED: MENTHOL/PHENOL 1 EACH UD MM PRN (17:03)
[2017-12-23] MEDS ORDERED: MAGNESIUM HYDROX 2400MG/30ML ORAL SUSPENSION 30 ML CUP PO PRN (17:03)
[2017-12-23] MEDS ORDERED: LOPERAMIDE HCL 2 MG CAPSULE PO PRN (17:03)
[2017-12-23] MEDS ORDERED: ACETAMINOPHEN 325 MG TABLET (FP) PO PRN (17:03)
[2017-12-23] MEDS ORDERED: ALBUTEROL SO4 18 GM HFA INHALER IH PRN (17:07)
[2017-12-23] MEDS ORDERED: PATIENT'S OWN MEDICATION (NON-FORMULARY) (Elviteg/Cob/Emtri/Tenof Alafen 1 EACH) PO SCH (17:15)
[2017-12-23] MEDS: ASPIRIN 81 MG CHEWABLE TABLETS PO SCH (21:31)
[2017-12-23] MEDS: amLODIPine BESYLATE 10 MG TABLET (FP) PO SCH (21:31)
[2017-12-23] MEDS: NICOTINE 21 MG/24 HOURS TOPICAL PATCH TD SCH (21:32)
[2017-12-23] MEDS ORDERED: MELATONIN 5 MG TABLETS PO PRN (22:00)
[2017-12-23] MEDS: THIAMINE HCL 100 MG TABLET (FP) PO SCH (22:15)
[2017-12-23] MEDS: HYDROCORTISONE 0.5% TOPICAL OINTMENT TUBE TP SCH (22:16)
[2017-12-23] MEDS: diazePAM 5 MG TABLET PO SCH (22:16)
[2017-12-23] MEDS: BACITRACIN 15 GM TUBE TOPICAL OINTMENT TP SCH (22:16)
[2017-12-24 03:26] LABS: URINE APPEARANCE TURBID; URINE BILIRUBIN NEGATIVE (<2.0 mg/dL); URINE BLOOD NEGATIVE (NEGATIVE); URINE COLOR AMBER; URINE GLUCOSE (UA) NEGATIVE (NEGATIVE); URINE KETONE NEGATIVE (NEGATIVE); URINE LEUK ESTERASE NEGATIVE (NEGATIVE); URINE NITRITE NEGATIVE (NEGATIVE); URINE UROBILINOGEN NEGATIVE mg/dL (0.2-1.0)
[2017-12-24 03:39] LABS: URINE PROTEIN 1+ (NEGATIVE)
[2017-12-24 03:44] LABS: URINE BACTERIA MANY /hpf (NONE SEEN); URINE MUCUS FEW
[2017-12-24] MEDS: diazePAM 5 MG TABLET PO SCH ×3 (06:01→22:29)
[2017-12-24] MEDS ORDERED: TAMSULOSIN HCL 0.4 MG CAP.ER.24H (FP) PO ONE (06:59)
--- NOTE | 2017-12-24 07:29 | PN ---
[facility] Progress Note Note: Patient has a history of BPH and reports hesistency and dribbling. He requests that he wants his medication administration time for Tamsulosin o.4 mg tablet oral changed from 10.00AM to 6.00AM.
[2017-12-24] MEDS ORDERED: TAMSULOSIN HCL 0.4 MG CAP.ER.24H (FP) PO SCH (10:00)
[2017-12-24] MEDS: amLODIPine BESYLATE 10 MG TABLET (FP) PO SCH (10:21)
[2017-12-24] MEDS: ASPIRIN 81 MG CHEWABLE TABLETS PO SCH (10:21)
[2017-12-24] MEDS: PRENATAL VITAMINS W/ FOLIC ACID TABLET (FP) PO SCH (10:21)
[2017-12-24] MEDS: BACITRACIN 15 GM TUBE TOPICAL OINTMENT TP SCH ×2 (10:22→22:31)
[2017-12-24] MEDS: NICOTINE 21 MG/24 HOURS TOPICAL PATCH TD SCH (10:22)
[2017-12-24 11:21] LABS: HEMATOCRIT 43.2 % (35.4-49); HEMOGLOBIN 14.7 GM/dL (11.7-16.9); MCH 31.9 pg (25.7-33.7); MCHC 33.9 g/dl (32.0-35.9); MEAN PLT VOLUME 9.2 fl (7.5-11.1); PLATELET COUNT 256 K/MM3 (134-434); RDW 13.6 % (11.9-15.9)
[2017-12-24 11:40] LABS: CHLORIDE 108 mmol/L (98-107); POTASSIUM 4.5 mmol/L (3.5-5.1); SODIUM 142 mmol/L (136-145)
[2017-12-24] MEDS: HYDROCORTISONE 0.5% TOPICAL OINTMENT TUBE TP SCH ×2 (13:19→22:31)
[2017-12-24] MEDS: BUDESONIDE/FORMETEROL FUMARATE 80/4.5 mcg INHALER IH SCH ×2 (13:19→22:31)
[2017-12-24 14:49] LABS: ALBUMIN 3.5 g/dl (3.4-5.0); ALK PHOS 107 U/L (45-117); ANION GAP -4 (8-16); BILIRUBIN,TOTAL 0.3 mg/dL (0.2-1.0); BLOOD UREA NITROGEN 25 mg/dL (7-18); CO2 22 mmol/L (21-32); CREATININE 1.1 mg/dL (0.7-1.3); GLUCOSE,RANDOM 96 mg/dL (74-106); SGOT/AST 34 U/L (15-37); SGPT/ALT 44 U/L (12-78); TOT PROT 7.9 g/dl (6.4-8.2)
--- NOTE | 2017-12-24 15:17 | CONSULT ---
[facility] Psychiatric Consult - Data Date of interview: 12/24/17 Admission source: [facility] Identifying data: Another admission to [facility] for this 57 y/o male seeking detox treatment,on , for cocaine (crack) and alcohol dependence.Patient is single without children,unemployed,domiciled (O setting ) and supported through [facility] services. Substance Abuse History: Confirmed by patient in this session. [facility] report : Smoking history: Current every day smoker. Have you smoked in the past 12 months: Yes. Aproximately how many cigarettes per day: 20. Cigars Per Day: 0. Hx Chewing Tobacco Use: No. Initiated information on smoking cessation: Yes. 'Breaking Loose' booklet given: 12/23/17 (GIVEN TO PATIENT.). - Substance & Tx. History. Hx Alcohol Use: Yes. Hx Substance Use: Yes. Substance Use Type: Alcohol, Cocaine. Hx Substance Use Treatment: Yes. - Substances Abused. Alcohol. Route: Oral. Frequency: Daily. Amount used : 1 Pint Vodka, 6- 40 oz. beers. Age of first use: 17. Date of Last Use: 12/23. Crack. Route: Smoking. Frequency: 3-6 times per week. Amount used: $ 200 - $300. Age of first use: 36. Date of Last Use: 12/22/17 Medical History: No change in medical profile since encounter of 06/2017 : HIV infection since 1985,herpes genitalis,bronchial asthma,HTN,cirrhosis of liver, hepatitis C and BPH (benign prostatic hyperplasia).Past history of treatment for gonorrhea. Psychiatric History: History of multiple psychiatric hospitalizations ( [facility]).Diagnosed with Bipolar Disorder and ADHD (age 9). Still maintained on seroquel 100 mg/hs.Mr Up is officially referred to the [facility] mental health clinic in [facility] for his psychiatric aftercare but he declares total non-adherent to [facility] care for many months.History of " more than one " suicide attempt (self-mutilation ( wrist-cutting) in 2011 and remote overdose with pills). Physical/Sexual Abuse/Trauma History: Not discussed.Patient declines. Additional Comment: Urine Drug Screen Results: THC-Marijuana, ANGIE-Cocaine.Noted. Mental Status Exam - Mental Status Exam Alert and Oriented to: Time, Place, Person Cognitive Function: Grossly Intact Patient Appearance: Unkempt, Disheveled (covered with tattoos) Mood: Nervous, Withdrawn Affect: Mood Congruent, Constricted Patient Behavior: Fatigued, Guarded Speech Pattern: Delayed, Slurred Voice Loudness: Normal Thought Process: Goal Oriented Thought Disorder: Not Present Hallucinations: Denies Suicidal Ideation: Denies Homicidal Ideation: Denies Insight/Judgement: Poor Sleep: Poorly, Difficulty falling asleep Appetite: Fair Muscle strength/Tone: Normal Gait/Station: Normal Psychiatric Findings - Problem List ([place] 1, 2,3) (1) Alcohol dependence with uncomplicated withdrawal Current Visit: Yes Status: Acute (2) Marijuana dependence Current Visit: Yes Status: Acute (3) Cocaine dependence Current Visit: Yes Status: Acute (4) Nicotine dependence Current Visit: Yes Status: Acute Qualifiers: Nicotine product type: cigarettes Substance use status: in withdrawal Qualified Code(s): F17.213 - Nicotine dependence, cigarettes, with withdrawal (5) Substance induced mood disorder Current Visit: Yes Status: Acute (6) Schizoaffective disorder Current Visit: Yes Status: Chronic Qualifiers: Schizoaffective disorder type: bipolar Qualified Code(s): F25.0 - Schizoaffective disorder, bipolar type Comment: As per self-report and old records.No compliance with [facility]PD care. (7) Insomnia Current Visit: Yes Status: Acute Qualifiers: Insomnia type: primary Qualified Code(s): F51.01 - Primary insomnia - Initial Treatment Plan Initial Treatment Plan: Psychoeducation.Detoxification.Sleep hygiene.Seroquel 100 mg po hs.Side effects/benefits discussed with the patient.He agrees with this careplan.Observation.
[2017-12-24] MEDS: ELVITEG/COB/EMTRI/TENOF (GENVOYA) TABLET (NF) PO SCH (16:00)
--- NOTE | 2017-12-24 17:47 | PN ---
[facility] CIWA - CIWA Score Nausea/Vomitin-No Nausea/No Vomiting Muscle Tremors: 2 Anxiety: 4-Mod. Anxious/Guarded Agitation: 3 Paroxysmal Sweats: 3 Orientation: 0-Oriented Tacttile Disturbances: 3-Moderate Itch/Numb/Burn Auditory Disturbances: 0-None Visual Disturbances: 2-Mild Sensitivity Headache: 0-None Present CIWA-Ar Total Score: 17 BHS Progress Note (SOAP) Subjective: Fatigue, Tremors, Sweating, Anxious. Objective: PATIENT A & O X 3, OBSERVED AMBULATING ON UNIT. NO ACUTE DISTRESS. 12/24/17 17:45 Vital Signs Temperature 96.4 F L 12/24/17 17:24 Pulse Rate 69 12/24/17 17:24 Respiratory Rate 16 12/24/17 17:24 Blood Pressure 123/84 12/24/17 17:24 O2 Sat by Pulse Oximetry (%) Laboratory Tests 12/23/17 12/24/17 12/24/17 23:28 08:00 08:00 WBC 7.0 RBC 4.60 Hgb 14.7 Hct 43.2 MCV 94.0 MCH 31.9 MCHC 33.9 RDW 13.6 Plt Count 256 MPV 9.2 Sodium 142 Potassium 4.5 Chloride 108 H Carbon Dioxide 22 Anion Gap -4 L BUN 25 H D Creatinine 1.1 Creat Clearance w eGFR > 60 Random Glucose 96 Calcium 8.0 L Total Bilirubin 0.3 D AST 34 D ALT 44 D Alkaline Phosphatase 107 Total Protein 7.9 Albumin 3.5 Urine Color [place] Urine Appearance Turbid Urine pH 5.0 Ur Specific [place] 1.023 Urine Protein 1+ H Urine Glucose (UA) Negative Urine Ketones Negative Urine Blood Negative Urine Nitrite Negative Urine Bilirubin Negative Urine Urobilinogen Negative Ur Leukocyte Esterase Negative Urine WBC (Auto) 0 Urine RBC (Auto) <1 Urine Bacteria Many Urine Mucus Few RPR Titer 12/24/17 08:00 WBC RBC Hgb Hct MCV MCH MCHC RDW Plt Count MPV Sodium Potassium Chloride Carbon Dioxide Anion Gap BUN Creatinine Creat Clearance w eGFR Random Glucose Calcium Total Bilirubin AST ALT Alkaline Phosphatase Total Protein Albumin Urine Color Urine Appearance Urine pH Ur Specific [place] Urine Protein Urine Glucose (UA) Urine Ketones Urine Blood Urine Nitrite Urine Bilirubin Urine Urobilinogen Ur Leukocyte Esterase Urine WBC (Auto) Urine RBC (Auto) Urine Bacteria Urine Mucus RPR Titer Nonreactive LABS NOTED. Assessment: 12/24/17 17:45 WITHDRAWAL SYMPTOMS. Plan: CONTINUE DETOX. INCREASE DAILY PO FLUID INTAKE.
--- NOTE | 2017-12-24 18:24 | EKG ---
Test Reason : Blood Pressure : / mmHG Vent. Rate : 066 BPM Atrial Rate : 066 BPM P-R Int : 122 ms QRS Dur : 092 ms QT Int : 438 ms P-R-T Axes : -05 051 027 degrees QTc Int : 459 ms NORMAL SINUS RHYTHM VOLTAGE CRITERIA FOR LEFT VENTRICULAR HYPERTROPHY Possible lateral infarct ABNORMAL ECG WHEN COMPARED WITH ECG OF 16-OCT-2017 19:17, NO SIGNIFICANT CHANGE WAS FOUND Confirmed by MD ROSE, MEI ([id number]) on 12/24/2017 6:24:27 PM Referred By: Confirmed By:MIE ROSE MD
[2017-12-24] MEDS: QUEtiapine FUMARATE 100 MG TABLET (FP) PO SCH (22:29)
[2017-12-24] MEDS: THIAMINE HCL 100 MG TABLET (FP) PO SCH (22:30)
[2017-12-25] MEDS: TAMSULOSIN HCL 0.4 MG CAP.ER.24H (FP) PO SCH (06:04)
[2017-12-25] MEDS: ASPIRIN 81 MG CHEWABLE TABLETS PO SCH (10:12)
[2017-12-25] MEDS: ELVITEG/COB/EMTRI/TENOF (GENVOYA) TABLET (NF) PO SCH (10:12)
[2017-12-25] MEDS: PRENATAL VITAMINS W/ FOLIC ACID TABLET (FP) PO SCH (10:12)
[2017-12-25] MEDS: amLODIPine BESYLATE 10 MG TABLET (FP) PO SCH (10:12)
[2017-12-25] MEDS: NICOTINE 21 MG/24 HOURS TOPICAL PATCH TD SCH (10:12)
[2017-12-25] MEDS: BACITRACIN 15 GM TUBE TOPICAL OINTMENT TP SCH ×2 (10:13→22:07)
[2017-12-25] MEDS: diazePAM 5 MG TABLET PO SCH ×2 (10:13→22:07)
[2017-12-25] MEDS: BUDESONIDE/FORMETEROL FUMARATE 80/4.5 mcg INHALER IH SCH ×2 (11:38→22:06)
[2017-12-25] MEDS: HYDROCORTISONE 0.5% TOPICAL OINTMENT TUBE TP SCH ×2 (11:38→22:07)
--- NOTE | 2017-12-25 11:54 | PN ---
S CIWA - CIWA Score Nausea/Vomitin-No Nausea/No Vomiting Muscle Tremors: 4-Moderate,w/Arms Extend Anxiety: 3 Agitation: 4-Moderately Restless Paroxysmal Sweats: 3 Orientation: 0-Oriented Tacttile Disturbances: 0-None Auditory Disturbances: 0-None Visual Disturbances: 0-None Headache: 0-None Present CIWA-Ar Total Score: 14 BHS Progress Note (SOAP) Subjective: sweats mild shakes tired irritable Objective: 12/25/17 11:55 Vital Signs Temperature 98.4 F 12/25/17 11:07 Pulse Rate 64 12/25/17 11:07 Respiratory Rate 18 12/25/17 11:07 Blood Pressure 111/75 12/25/17 11:07 O2 Sat by Pulse Oximetry (%) Laboratory Tests 12/23/17 12/24/17 12/24/17 23:28 08:00 08:00 WBC 7.0 RBC 4.60 Hgb 14.7 Hct 43.2 MCV 94.0 MCH 31.9 MCHC 33.9 RDW 13.6 Plt Count 256 MPV 9.2 Sodium 142 Potassium 4.5 Chloride 108 H Carbon Dioxide 22 Anion Gap -4 L BUN 25 H D Creatinine 1.1 Creat Clearance w eGFR > 60 Random Glucose 96 Calcium 8.0 L Total Bilirubin 0.3 D AST 34 D ALT 44 D Alkaline Phosphatase 107 Total Protein 7.9 Albumin 3.5 Urine Color [place] Urine Appearance Turbid Urine pH 5.0 Ur Specific [place] 1.023 Urine Protein 1+ H Urine Glucose (UA) Negative Urine Ketones Negative Urine Blood Negative Urine Nitrite Negative Urine Bilirubin Negative Urine Urobilinogen Negative Ur Leukocyte Esterase Negative Urine WBC (Auto) 0 Urine RBC (Auto) <1 Urine Bacteria Many Urine Mucus Few Valproic Acid RPR Titer 12/24/17 12/25/17 08:00 06:00 WBC RBC Hgb Hct MCV MCH MCHC RDW Plt Count MPV Sodium Potassium Chloride Carbon Dioxide Anion Gap BUN Creatinine Creat Clearance w eGFR Random Glucose Calcium Total Bilirubin AST ALT Alkaline Phosphatase Total Protein Albumin Urine Color Urine Appearance Urine pH Ur Specific [place] Urine Protein Urine Glucose (UA) Urine Ketones Urine Blood Urine Nitrite Urine Bilirubin Urine Urobilinogen Ur Leukocyte Esterase Urine WBC (Auto) Urine RBC (Auto) Urine Bacteria Urine Mucus Valproic Acid 3.934 L RPR Titer Nonreactive aaox3 ambulating no acute distress Assessment: 12/25/17 11:55 withdrawal sx Plan: continue detox increase fluids
[2017-12-25] MEDS: THIAMINE HCL 100 MG TABLET (FP) PO SCH (22:06)
[2017-12-25] MEDS: QUEtiapine FUMARATE 100 MG TABLET (FP) PO SCH (22:07)
[2017-12-26] MEDS: TAMSULOSIN HCL 0.4 MG CAP.ER.24H (FP) PO SCH (06:05)
[2017-12-26] MEDS: ASPIRIN 81 MG CHEWABLE TABLETS PO SCH (10:13)
[2017-12-26] MEDS: PRENATAL VITAMINS W/ FOLIC ACID TABLET (FP) PO SCH (10:13)
[2017-12-26] MEDS: ELVITEG/COB/EMTRI/TENOF (GENVOYA) TABLET (NF) PO SCH (10:14)
[2017-12-26] MEDS: BACITRACIN 15 GM TUBE TOPICAL OINTMENT TP SCH (10:15)
[2017-12-26] MEDS: NICOTINE 21 MG/24 HOURS TOPICAL PATCH TD SCH (10:15)
[2017-12-26] MEDS: diazePAM 5 MG TABLET PO SCH ×2 (11:10→22:18)
[2017-12-26] MEDS: BUDESONIDE/FORMETEROL FUMARATE 80/4.5 mcg INHALER IH SCH ×2 (11:11→22:18)
[2017-12-26] MEDS: HYDROCORTISONE 0.5% TOPICAL OINTMENT TUBE TP SCH ×2 (12:14→22:19)
[2017-12-26] MEDS: amLODIPine BESYLATE 10 MG TABLET (FP) PO SCH (12:15)
[2017-12-26] MEDS: valACYclovir HCL 500 MG TABLET (FP) PO SCH (13:31)
[2017-12-26] MEDS: MAG HYDROX/AL HYDROX/SIMETH 30 ML UNIT-DOSE CUP PO PRN (15:18)
--- NOTE | 2017-12-26 16:34 | PN ---
BHS Progress Note (SOAP) Subjective: Tremors, Anxious, Sweating, Nausea, Diarrhea. Objective: PATIENT A & O X 2 (UNCERTAIN ABOUT CURRENT DAY / DATE). PATIENT OBSERVED AMBULATING ON UNIT. NO ACUTE DISTRESS. 12/26/17 16:33 Vital Signs Temperature 97.9 F 12/26/17 13:26 Pulse Rate 93 H 12/26/17 13:26 Respiratory Rate 20 12/26/17 13:26 Blood Pressure 148/93 12/26/17 13:26 O2 Sat by Pulse Oximetry (%) Laboratory Tests 12/23/17 12/24/17 12/24/17 23:28 08:00 08:00 WBC 7.0 RBC 4.60 Hgb 14.7 Hct 43.2 MCV 94.0 MCH 31.9 MCHC 33.9 RDW 13.6 Plt Count 256 MPV 9.2 Sodium 142 Potassium 4.5 Chloride 108 H Carbon Dioxide 22 Anion Gap -4 L BUN 25 H D Creatinine 1.1 Creat Clearance w eGFR > 60 Random Glucose 96 Calcium 8.0 L Total Bilirubin 0.3 D AST 34 D ALT 44 D Alkaline Phosphatase 107 Total Protein 7.9 Albumin 3.5 Urine Color [place] Urine Appearance Turbid Urine pH 5.0 Ur Specific [place] 1.023 Urine Protein 1+ H Urine Glucose (UA) Negative Urine Ketones Negative Urine Blood Negative Urine Nitrite Negative Urine Bilirubin Negative Urine Urobilinogen Negative Ur Leukocyte Esterase Negative Urine WBC (Auto) 0 Urine RBC (Auto) <1 Urine Bacteria Many Urine Mucus Few Valproic Acid RPR Titer 12/24/17 12/25/17 08:00 06:00 WBC RBC Hgb Hct MCV MCH MCHC RDW Plt Count MPV Sodium Potassium Chloride Carbon Dioxide Anion Gap BUN Creatinine Creat Clearance w eGFR Random Glucose Calcium Total Bilirubin AST ALT Alkaline Phosphatase Total Protein Albumin Urine Color Urine Appearance Urine pH Ur Specific [place] Urine Protein Urine Glucose (UA) Urine Ketones Urine Blood Urine Nitrite Urine Bilirubin Urine Urobilinogen Ur Leukocyte Esterase Urine WBC (Auto) Urine RBC (Auto) Urine Bacteria Urine Mucus Valproic Acid 3.934 L RPR Titer Nonreactive LABS NOTED. Assessment: 12/26/17 16:33 WITHDRAWAL SYMPTOMS. Plan: CONTINUE DETOX. INCREASE DAILY PO FLUID INTAKE.
[2017-12-26] MEDS: THIAMINE HCL 100 MG TABLET (FP) PO SCH (22:18)
[2017-12-26] MEDS: QUEtiapine FUMARATE 100 MG TABLET (FP) PO SCH (22:18)
[2017-12-26] MEDS: BACITRACIN 0.9 GM PACKET TP SCH (22:18)
[2017-12-27] MEDS: TAMSULOSIN HCL 0.4 MG CAP.ER.24H (FP) PO SCH (05:56)
[2017-12-27 09:17] VITALS: BP 108/71; PULSE 80; TEMP 95.8
[2017-12-27] MEDS ORDERED: diazePAM 5 MG TABLET PO SCH (10:00)
[2017-12-27] MEDS: NICOTINE 21 MG/24 HOURS TOPICAL PATCH TD SCH (10:30)
[2017-12-27] MEDS: PRENATAL VITAMINS W/ FOLIC ACID TABLET (FP) PO SCH (10:30)
[2017-12-27] MEDS: amLODIPine BESYLATE 10 MG TABLET (FP) PO SCH (10:30)
[2017-12-27] MEDS: ASPIRIN 81 MG CHEWABLE TABLETS PO SCH (10:30)
[2017-12-27] MEDS: valACYclovir HCL 500 MG TABLET (FP) PO SCH (10:30)
[2017-12-27] MEDS: HYDROCORTISONE 0.5% TOPICAL OINTMENT TUBE TP SCH (10:30)
[2017-12-27] MEDS: BACITRACIN 0.9 GM PACKET TP SCH (10:30)
[2017-12-27] MEDS: BUDESONIDE/FORMETEROL FUMARATE 80/4.5 mcg INHALER IH SCH (10:30)
[2017-12-27] MEDS: ELVITEG/COB/EMTRI/TENOF (GENVOYA) TABLET (NF) PO SCH (10:30)
--- NOTE | 2017-12-27 12:58 | PN ---
BHS Progress Note (SOAP) Subjective: DETOX COMPLETED. ALERT O X 3. REFERRED TO REHAB [address] [place] [address] Objective: 12/27/17 12:58 Vital Signs Temperature 95.8 F L 12/27/17 09:16 Pulse Rate 80 12/27/17 09:16 Respiratory Rate 18 12/27/17 09:16 Blood Pressure 108/71 12/27/17 09:16 O2 Sat by Pulse Oximetry (%) Laboratory Last Values WBC 7.0 K/mm3 (4.0-10.0) 12/24/17 08:00 RBC 4.60 M/mm3 (4.00-5.60) 12/24/17 08:00 Hgb 14.7 GM/dL (11.7-16.9) 12/24/17 08:00 Hct 43.2 % (35.4-49) 12/24/17 08:00 MCV 94.0 fl (80-96) 12/24/17 08:00 MCH 31.9 pg (25.7-33.7) 12/24/17 08:00 MCHC 33.9 g/dl (32.0-35.9) 12/24/17 08:00 RDW 13.6 % (11.9-15.9) 12/24/17 08:00 Plt Count 256 K/MM3 (134-434) 12/24/17 08:00 MPV 9.2 fl (7.5-11.1) 12/24/17 08:00 Sodium 142 mmol/L (136-145) 12/24/17 08:00 Potassium 4.5 mmol/L (3.5-5.1) 12/24/17 08:00 Chloride 108 mmol/L (98-107) H 12/24/17 08:00 Carbon Dioxide 22 mmol/L (21-32) 12/24/17 08:00 Anion Gap -4 (8-16) L 12/24/17 08:00 BUN 25 mg/dL (7-18) H D 12/24/17 08:00 Creatinine 1.1 mg/dL (0.7-1.3) 12/24/17 08:00 Creat Clearance w eGFR > 60 (>60) 12/24/17 08:00 Random Glucose 96 mg/dL (74-106) 12/24/17 08:00 Calcium 8.0 mg/dL (8.5-10.1) L 12/24/17 08:00 Total Bilirubin 0.3 mg/dL (0.2-1.0) D 12/24/17 08:00 AST 34 U/L (15-37) D 12/24/17 08:00 ALT 44 U/L (12-78) D 12/24/17 08:00 Alkaline Phosphatase 107 U/L (45-117) 12/24/17 08:00 Total Protein 7.9 g/dl (6.4-8.2) 12/24/17 08:00 Albumin 3.5 g/dl (3.4-5.0) 12/24/17 08:00 Urine Color Silvia 12/23/17 23:28 Urine Appearance Turbid 12/23/17 23:28 Urine pH 5.0 (5.0-8.0) 12/23/17 23:28 Ur Specific [place] 1.023 (1.001-1.035) 12/23/17 23:28 Urine Protein 1+ (NEGATIVE) H 12/23/17 23:28 Urine Glucose (UA) Negative (NEGATIVE) 12/23/17 23:28 Urine Ketones Negative (NEGATIVE) 12/23/17 23:28 Urine Blood Negative (NEGATIVE) 12/23/17 23:28 Urine Nitrite Negative (NEGATIVE) 12/23/17 23:28 Urine Bilirubin Negative (<2.0 mg/dL) 12/23/17 23:28 Urine Urobilinogen Negative mg/dL (0.2-1.0) 12/23/17 23:28 Ur Leukocyte Esterase Negative (NEGATIVE) 12/23/17 23:28 Urine WBC (Auto) 0 /hpf (3-5) 12/23/17 23:28 Urine RBC (Auto) <1 /hpf (0-3) 12/23/17 23:28 Urine Bacteria Many /hpf (NONE SEEN) 12/23/17 23:28 Urine Mucus Few 12/23/17 23:28 Valproic Acid 3.934 ug/ml (50-100) L 12/25/17 06:00 RPR Titer Nonreactive (NONREACTIVE) 12/24/17 08:00 Assessment: 12/27/17 12:58 NAD Plan: D/C TO REHAB TODAY
--- NOTE | 2017-12-27 13:01 | DS ---
[facility] Detox Discharge Summary Admission Date: 12/23/17 Discharge Date: 12/27/17 - History Present History: Alcohol Dependence, Cannabis Dependence, Cocaine Dependence Additional Comments: DETOX COMPLETED. ALERT O X 3. NAD. Pertinent Past History: PLEASE SEE DX BELOW - Physical Exam Results Vital Signs: Vital Signs Temperature 95.8 F L 12/27/17 09:16 Pulse Rate 80 12/27/17 09:16 Respiratory Rate 18 12/27/17 09:16 Blood Pressure 108/71 12/27/17 09:16 O2 Sat by Pulse Oximetry (%) Pertinent Admission Physical Exam Findings: WITHDRAWAL SX Laboratory Last Values WBC 7.0 K/mm3 (4.0-10.0) 12/24/17 08:00 RBC 4.60 M/mm3 (4.00-5.60) 12/24/17 08:00 Hgb 14.7 GM/dL (11.7-16.9) 12/24/17 08:00 Hct 43.2 % (35.4-49) 12/24/17 08:00 MCV 94.0 fl (80-96) 12/24/17 08:00 MCH 31.9 pg (25.7-33.7) 12/24/17 08:00 MCHC 33.9 g/dl (32.0-35.9) 12/24/17 08:00 RDW 13.6 % (11.9-15.9) 12/24/17 08:00 Plt Count 256 K/MM3 (134-434) 12/24/17 08:00 MPV 9.2 fl (7.5-11.1) 12/24/17 08:00 Sodium 142 mmol/L (136-145) 12/24/17 08:00 Potassium 4.5 mmol/L (3.5-5.1) 12/24/17 08:00 Chloride 108 mmol/L (98-107) H 12/24/17 08:00 Carbon Dioxide 22 mmol/L (21-32) 12/24/17 08:00 Anion Gap -4 (8-16) L 12/24/17 08:00 BUN 25 mg/dL (7-18) H D 12/24/17 08:00 Creatinine 1.1 mg/dL (0.7-1.3) 12/24/17 08:00 Creat Clearance w eGFR > 60 (>60) 12/24/17 08:00 Random Glucose 96 mg/dL (74-106) 12/24/17 08:00 Calcium 8.0 mg/dL (8.5-10.1) L 12/24/17 08:00 Total Bilirubin 0.3 mg/dL (0.2-1.0) D 12/24/17 08:00 AST 34 U/L (15-37) D 12/24/17 08:00 ALT 44 U/L (12-78) D 12/24/17 08:00 Alkaline Phosphatase 107 U/L (45-117) 12/24/17 08:00 Total Protein 7.9 g/dl (6.4-8.2) 12/24/17 08:00 Albumin 3.5 g/dl (3.4-5.0) 12/24/17 08:00 Urine Color Silvia 12/23/17 23:28 Urine Appearance Turbid 12/23/17 23:28 Urine pH 5.0 (5.0-8.0) 12/23/17 23:28 Ur Specific [place] 1.023 (1.001-1.035) 12/23/17 23:28 Urine Protein 1+ (NEGATIVE) H 12/23/17 23:28 Urine Glucose (UA) Negative (NEGATIVE) 12/23/17 23:28 Urine Ketones Negative (NEGATIVE) 12/23/17 23:28 Urine Blood Negative (NEGATIVE) 12/23/17 23:28 Urine Nitrite Negative (NEGATIVE) 12/23/17 23:28 Urine Bilirubin Negative (<2.0 mg/dL) 12/23/17 23: Urine Urobilinogen Negative mg/dL (0.2-1.0) 12/23/17 23:28 Ur Leukocyte Esterase Negative (NEGATIVE) 12/23/17 23:28 Urine WBC (Auto) 0 /hpf (3-5) 12/23/17 23:28 Urine RBC (Auto) <1 /hpf (0-3) 12/23/17 23:28 Urine Bacteria Many /hpf (NONE SEEN) 12/23/17 23:28 Urine Mucus Few 12/23/17 23:28 Valproic Acid 3.934 ug/ml (50-100) L 12/25/17 06:00 RPR Titer Nonreactive (NONREACTIVE) 12/24/17 08:00 - Treatment Hospital Course: Detox Protocol Followed, Detoxed Safely, Responded well, Discharged Condition Good, Rehab Referral Accepted Patient has Accepted a Rehab Referral to: [facility] - Medication Discharge Medications: Ambulatory Orders Albuterol Sulfate Inhaler - [Ventolin HFA Inhaler -] 2 puff IH Q4H PRN #1 inhaler 10/31/17 Amlodipine Besylate [Norvasc -] 10 mg PO DAILY #30 tablet 10/31/17 Aspirin 81 mg PO DAILY #30 tab.chew 10/31/17 Elviteg/Cob/Emtri/Tenof Alafen [Genvoya (Non-Formulary)] 1 each PO DAILY #30 tablet 10/31/17 Tamsulosin HCl [Flomax -] 0.4 mg PO DAILY #30 capsule 10/31/17 Valacyclovir HCl [Valtrex -] 500 mg PO DAILY #30 tablet 10/31/17 Divalproex [Depakote -] 250 mg PO DAILY 12/23/17 Fluticasone/Salmeterol [Advair 250-50 Diskus] 1 each IH DAILY 12/23/17 Quetiapine Fumarate [Seroquel] 100 mg PO HS #30 tablet 12/24/17 - Diagnosis (1) Alcohol dependence with uncomplicated withdrawal Current Visit: Yes Status: Acute (2) Cocaine dependence Current Visit: Yes Status: Acute Qualifiers: Substance use status: uncomplicated Qualified Code(s): F14.20 - Cocaine dependence, uncomplicated (3) Insomnia Current Visit: Yes Status: Acute Qualifiers: Insomnia type: primary Qualified Code(s): F51.01 - Primary insomnia (4) Marijuana dependence Current Visit: Yes Status: Acute (5) AIDS (acquired immune deficiency syndrome) Current Visit: Yes Status: Chronic (6) Asthma Current Visit: Yes Status: Chronic Qualifiers: Asthma severity: mild Asthma persistence: unspecified Asthma complication type: uncomplicated Qualified Code(s): J45.909 - Unspecified asthma, uncomplicated (7) BPH (benign prostatic hypertrophy) Current Visit: Yes Status: Chronic Qualifiers: Lower urinary tract symptom presence: symptoms absent Qualified Code(s): N40.0 - Benign prostatic hyperplasia without lower urinary tract symptoms (8) Cirrhosis of liver Current Visit: Yes Status: Chronic Qualifiers: Hepatic cirrhosis type: unspecified hepatic cirrhosis Ascites presence: without ascites Qualified Code(s): K74.60 - Unspecified cirrhosis of liver (9) Hepatitis C Current Visit: Yes Status: Chronic Qualifiers: Viral hepatitis chronicity: chronic Hepatic coma status: without hepatic coma Qualified Code(s): B18.2 - Chronic viral hepatitis C (10) Hypercholesterolemia Current Visit: Yes Status: Chronic - AMA Did Patient Leave Against Medical Advice: No
[2017-12-27] MEDS: MAG HYDROX/AL HYDROX/SIMETH 30 ML UNIT-DOSE CUP PO PRN (14:33)
== END 2017-12-27 14:32 | disposition other institution (70) | DRG 774 ==
LOC: YASAS 12:24 → Y3N 19:52
PROVIDERS: ADMIT Internal Medicine; ATTEND Internal Medicine
PROC: HZ2ZZZZ Detoxification Services for Substance Abuse Treatment (ICD-10-PCS; principal; 2017-12-23)
DX: F10.230 Alcohol dependence with withdrawal, uncomplicated (principal); F14.20 Cocaine dependence, uncomplicated; F12.20 Cannabis dependence, uncomplicated; F17.210 Nicotine dependence, cigarettes, uncomplicated; F31.9 Bipolar disorder, unspecified; F19.24 Other psychoactive substance dependence with psychoactive substance-induced mood disorder; F25.0 Schizoaffective disorder, bipolar type; B18.2 Chronic viral hepatitis C; F51.05 Insomnia due to other mental disorder; E78.00 Pure hypercholesterolemia, unspecified; J45.909 Unspecified asthma, uncomplicated; N40.0 Benign prostatic hyperplasia without lower urinary tract symptoms; K74.60 Unspecified cirrhosis of liver; Z91.5 Personal history of self-harm; B20 Human immunodeficiency virus [HIV] disease
CPT/HCPCS: 36415; 80053; 80164; 81003; 81015; 85027; 86593; 93005; 93010

== ENCOUNTER 2017-12-27 15:02 | Inpatient (IN) | payer OTHER ==
--- NOTE | 2017-12-27 15:39 | HP ---
Psychiatrist Admission - Data Date of interview: 12/27/17 Admission source: 3N Identifying data: This is one of the several [facility] admission for this 57 years old male, unemployed on HASA, living in the [facility] independent housing. Medical History: HIV+ since 1985, herpes genitales, BA, HTN, BPH, liver cirrhosis, smokes cigarettes 1 PPD. Psychiatric History: Patient reports was diagnosed at age of 7 as PTSD at 17 shizophrenia, multiple psyhciatric hospitalizations with ([facility]), most recent in 2018, non-compliant with medications and aftercare, takes medications while indetox or rehab, currently on Seroquel 100 mg po hs, history of self-mutilation(wrist cut, od with pills). Seen by and continued seroquel 100 mg po hs. Physical/Sexual Abuse/Trauma History: Denies Allergies/Adverse Reactions: Allergies Allergy/AdvReac Type Severity Reaction Status Date / Time chlordiazepoxide HCl Allergy Severe Rash Verified 12/23/17 19:24 [From Librium] Date of last physical exam: 12/23/17 Concur with the findings of this exam: Yes - Substance Abuse/Tx History Hx Alcohol Use: Yes (1 pint of vodka daily , 6 40 oz beer daily) Hx Substance Use: Yes Substance Use Type: Cocaine ($200-300 daily use) Hx Substance Use Treatment: Yes Mental Status Exam - Mental Status Exam Alert and Oriented to: Time, Place, Person Cognitive Function: Grossly Intact Patient Appearance: Well Groomed Mood: Sad, Anxious Affect: Mood Congruent Patient Behavior: Cooperative Speech Pattern: Clear, Appropriate Voice Loudness: Normal Thought Process: Intact, Goal Oriented Thought Disorder: Not Present Hallucinations: Denies Suicidal Ideation: Denies Homicidal Ideation: Denies Insight/Judgement: Fair Sleep: Fair Appetite: Fair Muscle strength/Tone: Normal Gait/Station: Normal Psychiatric Findings - Problem List ([place] 1, 2,3) (1) Alcohol dependence Current Visit: No Status: Acute (2) Cocaine dependence Current Visit: No Status: Acute Qualifiers: Substance use status: uncomplicated Qualified Code(s): F14.20 - Cocaine dependence, uncomplicated (3) Bipolar 1 disorder Current Visit: No Status: Chronic - Initial Treatment Plan Initial Treatment Plan: will continue seroquel 100 mg po hs, monitor progress as needed.
[2017-12-27] MEDS ORDERED: MAGNESIUM CITRATE 300 ML BOTTLE PO PRN (15:50)
[2017-12-27] MEDS ORDERED: MAG HYDROX/AL HYDROX/SIMETH 30 ML UNIT-DOSE CUP PO PRN (15:50)
[2017-12-27] MEDS ORDERED: guaiFENesin/D-METHORPHAN HB 10 ML UNIT-DOSE CUPS PO PRN (15:50)
[2017-12-27] MEDS ORDERED: MAGNESIUM HYDROX 2400MG/30ML ORAL SUSPENSION 30 ML CUP PO PRN (15:50)
[2017-12-27] MEDS ORDERED: MENTHOL/PHENOL 1 EACH UD MM PRN (15:50)
[2017-12-27] MEDS ORDERED: LOPERAMIDE HCL 2 MG CAPSULE PO PRN (15:50)
[2017-12-27] MEDS ORDERED: P-EPHED 60MG/TRIPROLIDI 2.5MG TABLET PO PRN (15:50)
[2017-12-27] MEDS ORDERED: IBUPROFEN 400 MG TABLET (FP) PO PRN (15:50)
[2017-12-27] MEDS ORDERED: hydrOXYzine PAMOATE 50 MG CAPSULE (FP) PO PRN (15:50)
[2017-12-27] MEDS ORDERED: ACETAMINOPHEN 325 MG TABLET (FP) PO PRN (15:50)
[2017-12-27] MEDS ORDERED: ALBUTEROL SO4 18 GM HFA INHALER IH PRN (15:50)
--- NOTE | 2017-12-27 15:53 | HP ---
[facility] Rehab Assess/Revision - Admission History Admitted to Rehab from: [facility] [address] [place] Date of Admission to Rehab: 12/27/17 - Findings Detox History & Physical reviewed: Yes Concur with findings: Yes Inpatient Rehab Admission - Initial Determination Are CD services needed?: Yes Free of communicable disease: Yes Not in need of hospitalization: Yes - Rehab Admission Criteria Previous failed treatment: Yes Poor recovery environment: Yes Comorbidities: Yes Lacks judgement: Yes Patient is meeting Inpatient Rehab admission criteria:: Yes
[2017-12-27] MEDS: BUDESONIDE/FORMETEROL FUMARATE 80/4.5 mcg INHALER IH SCH ×2 (17:20→21:46)
[2017-12-27] MEDS ORDERED: THIAMINE HCL 100 MG TABLET (FP) PO SCH (22:00)
[2017-12-27] MEDS ORDERED: QUEtiapine FUMARATE 100 MG TABLET (FP) PO SCH (22:00)
[2017-12-27] MEDS ORDERED: MELATONIN 5 MG TABLETS PO PRN (22:00)
[2017-12-28 07:16] VITALS: BP 125/83; PULSE 73; TEMP 97.3
[2017-12-28] MEDS ORDERED: amLODIPine BESYLATE 10 MG TABLET (FP) PO SCH (10:00)
[2017-12-28] MEDS ORDERED: PRENATAL VITAMINS W/ FOLIC ACID TABLET (FP) PO SCH (10:00)
[2017-12-28] MEDS ORDERED: ASPIRIN 81 MG CHEWABLE TABLETS PO SCH (10:00)
[2017-12-28] MEDS ORDERED: valACYclovir HCL 500 MG TABLET (FP) PO SCH (10:00)
[2017-12-28] MEDS ORDERED: TAMSULOSIN HCL 0.4 MG CAP.ER.24H (FP) PO SCH (10:00)
[2017-12-28] MEDS ORDERED: DIVALPROEX SODIUM 250 MG TABLET E.C. PO SCH (10:00)
[2017-12-28] MEDS ORDERED: ELVITEG/COB/EMTRI/TENOF (GENVOYA) TABLET (NF) PO SCH (10:00)
[2017-12-28] MEDS: BUDESONIDE/FORMETEROL FUMARATE 80/4.5 mcg INHALER IH SCH (10:54)
--- NOTE | 2017-12-28 15:32 | PN ---
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
== END 2017-12-28 15:40 | disposition left against medical advice (07) | DRG 770 ==
LOC: YASAS 15:02 → Y5N 15:06
PROVIDERS: ADMIT Psychiatry & Neurology Psychiatry; ATTEND Psychiatry & Neurology Psychiatry
PROC: HZ42ZZZ Group Counseling for Substance Abuse Treatment, Cognitive-Behavioral (ICD-10-PCS; principal; 2017-12-27)
DX: F10.20 Alcohol dependence, uncomplicated (principal); F14.20 Cocaine dependence, uncomplicated; F31.89 Other bipolar disorder; F43.10 Post-traumatic stress disorder, unspecified; F20.9 Schizophrenia, unspecified; I10 Essential (primary) hypertension; K74.60 Unspecified cirrhosis of liver; Z86.19 Personal history of other infectious and parasitic diseases; Z87.438 Personal history of other diseases of male genital organs
CPT/HCPCS: 36415; 80164

== ENCOUNTER 2018-02-12 11:58 | Inpatient (IN) | payer OTHER ==
[2018-02-12 12:08] VITALS: BMI 23.5
--- NOTE | 2018-02-12 16:28 | HP ---
CIWA Score - CIWA Score Nausea/Vomitin Muscle Tremors: 3 Anxiety: 3 Agitation: 3 Paroxysmal Sweats: 3 Orientation: 0-Oriented Tacttile Disturbances: 0-None Auditory Disturbances: 0-None Visual Disturbances: 0-None Headache: 0-None Present CIWA-Ar Total Score: 15 Admission ROS BHS - HPI Chief Complaint: "i just need to stop already" Allergies/Adverse Reactions: Allergies Allergy/AdvReac Type Severity Reaction Status Date / Time chlordiazepoxide HCl Allergy Severe Rash Verified 02/12/18 14:48 [From Librium] History of Present Illness: pt with a long history of alcohol, crack cocaine and heroin addiction presents for detox. Pt has had numerous episodes of detox and Rehab here, states he wants to do the [facility] now. Med hx - HIV, HTN, Asthma, BPH, Hep C, Cirrhiosis, herpes. Psych hx- Bipolar, mood disorder, schizophrenia, maniac depression, Anxiety Pt states he is not compliant with any of his meds and has not taken the HIV meds in one month. Takes Bp meds only "sometimes". Denies SI/HI Exam Limitations: No Limitations - Ebola screening Have you traveled outside of the country in the last 21 days: No (N) Have you had contact with anyone from an Ebola affected area: No Have you been sick,other than usual withdrawal symptoms: No Do you have a fever: No - Review of Systems Constitutional: Loss of Appetite, Night Sweats, Changes in sleep, Unintentional Wgt. Loss EENT: reports: No Symptoms Reported Respiratory: reports: No Symptoms reported Cardiac: reports: Chest Pain (Was in the hospital 2 days ago for it, but denies current chest pain) GI: reports: Constipated : reports: Other (states he had santillan catheter taken out tuesday, pain to tip of penis) Musculoskeletal: reports: Back Pain, Joint Pain Integumentary: reports: Other (callus to soles of both feet) Neuro: reports: No Symptoms reported Endocrine: reports: No Symptoms Reported Hematology: reports: Anemia Psychiatric: reports: Orientated x3, Anxious Other Systems: Reviewed and Negative Patient History - Patient Medical History Hx Anemia: Yes Hx Asthma: Yes (On Albuterol - Not compliant) Hx Chronic Obstructive Pulmonary Disease (COPD): No Hx Cancer: No Hx Cardiac Disorders: No Hx Congestive Heart Failure: No Hx Hypertension: Yes (Not complaint with Norvasc) Hx Hypercholesterolemia: Yes (No med.) Hx Pacemaker: No HX Cerebrovascular Accident: No Hx Seizures: No Hx Dementia: No Hx Diabetes: No Hx Gastrointestinal Disorders: No Hx Liver Disease: Yes (HEP C, CIRRHOSIS) Hx Genitourinary Disorders: No Hx Sexually Transmitted Disorders: Yes (Herpes- on Valtrex ) Hx Renal Disease (ESRD): No Hx Thyroid Disease: No Hx Human Immunodeficiency Virus (HIV): Yes (Genvoya; non compliant) Hx Hepatitis C: Yes (Treated in 2013; Completed, Uncertain if Cured.) Hx Depression: Yes Hx Suicide Attempt: No Hx Bipolar Disorder: Yes (Meds., Non-compliant ) Hx Schizophrenia: No - Patient Surgical History Past Surgical History: Yes Hx Neurologic Surgery: No Hx Cataract Extraction: No Hx Cardiac Surgery: No Hx Lung Surgery: No Hx Breast Surgery: No Hx Breast Biopsy: No Hx Abdominal Surgery: No Hx Appendectomy: No Hx Cholecystectomy: No Hx Genitourinary Surgery: No Hx Section: No Hx Orthopedic Surgery: No Other Surgical History: RIGHT WRIST SX in 1983 for a laceration Anesthesia Reaction: No - PPD History Previous Implant?: Yes Documented Results: Negative w/proof Implanted On Prior R Admission?: Yes Date: 01/13/17 Results: 0 mm PPD to be Administered?: Yes - Reproductive History Patient is a Female of Child Bearing Age (11 -55 yrs old): No - Smoking Cessation Smoking history: Current every day smoker Have you smoked in the past 12 months: Yes Aproximately how many cigarettes per day: 20 Cigars Per Day: 0 Hx Chewing Tobacco Use: No Initiated information on smoking cessation: Yes 'Breaking Loose' booklet given: 02/12/18 - Substance & Tx. History Hx Alcohol Use: Yes - Substances Abused Alcohol Route: Oral Frequency: Daily Amount used: LIQUOR- 1PINT, BEER- 6 (40oz) Age of first use: 17 Date of Last Use: 02/12/18 Heroin Route: Inhalation Frequency: Daily Amount used: 2 bags Age of first use: 32 Date of Last Use: 02/11/18 Crack Route: Smoking Frequency: Daily Amount used: 20 bags ($200) Age of first use: 35 Date of Last Use: 02/11/18 Family Disease History - Family Disease History Family Disease History: Diabetes: Mother (HTN, .), Respiratory: Sister ( Asthma), Other: Father (addiction to heroin,), Mother Admission Physical Exam BHS - Vital Signs Vital Signs: Vital Signs - 24 hr 02/12/18 12:06 Temperature 97.9 F Pulse Rate 74 Respiratory 21 Rate Blood Pressure 164/95 - Physical General Appearance: Yes: Mild Distress, Anxious HEENTM: Yes: Within Normal Limits Respiratory: Yes: No Respiratory Distress, No Accessory Muscle Use Neck: Yes: No masses,lesions,Nodules, Trachea in good position Breast: Yes: Breast Exam Deferred Cardiology: Yes: Regular Rate Abdominal: Yes: Non Tender Genitourinary: Yes: Hesitency, Retention Back: Yes: Within Normal Limits Musculoskeletal: Yes: full range of Motion, Gait Steady Extremities: Yes: Normal Capillary Refill Neurological: Yes: Fully Oriented, Alert Integumentary: Yes: Warm Lymphatic: Yes: Within Normal Limits - Diagnostic (1) Alcohol dependence with uncomplicated withdrawal Current Visit: No Status: Acute (2) Opioid dependence with withdrawal Current Visit: Yes Status: Acute (3) Cocaine dependence Current Visit: No Status: Chronic Qualifiers: Substance use status: uncomplicated Qualified Code(s): F14.20 - Cocaine dependence, uncomplicated (4) Insomnia Current Visit: No Status: Acute Qualifiers: Insomnia type: primary Qualified Code(s): F51.01 - Primary insomnia (5) Substance induced mood disorder Current Visit: Yes Status: Chronic (6) Substance-induced sleep disorder Current Visit: Yes Status: Chronic (7) Weight loss Current Visit: Yes Status: Chronic (8) AIDS (acquired immune deficiency syndrome) Current Visit: Yes Status: Chronic (9) Asthma Current Visit: Yes Status: Chronic Qualifiers: Asthma severity: mild Asthma persistence: unspecified Asthma complication type: uncomplicated Qualified Code(s): J45.909 - Unspecified asthma, uncomplicated (10) BPH (benign prostatic hypertrophy) Current Visit: Yes Status: Chronic Qualifiers: Lower urinary tract symptom presence: symptoms absent Qualified Code(s): N40.0 - Benign prostatic hyperplasia without lower urinary tract symptoms (11) Cirrhosis of liver Current Visit: No Status: Chronic Qualifiers: Hepatic cirrhosis type: unspecified hepatic cirrhosis Ascites presence: without ascites Qualified Code(s): K74.60 - Unspecified cirrhosis of liver (12) HIV (human immunodeficiency virus infection) Current Visit: Yes Status: Chronic (13) Hypertension Current Visit: Yes Status: Chronic Qualifiers: Hypertension type: essential hypertension Qualified Code(s): I10 - Essential (primary) hypertension Cleared for Admission [facility] - Detox or Rehab [facility] Level of Care: Medically Managed Detox Regimen/Protocol: Methadone/Valium [facility] Breath Alcohol Content Breath Alcohol Content: 0.006 Urine Drug Screen - Results Drug Screen Negative: No Urine Drug Screen Results: ANGIE-Cocaine, OPI-Opiates
[2018-02-12] MEDS ORDERED: P-EPHED 60MG/TRIPROLIDI 2.5MG TABLET PO PRN (17:08)
[2018-02-12] MEDS ORDERED: MENTHOL/PHENOL 1 EACH UD MM PRN (17:08)
[2018-02-12] MEDS ORDERED: MAG HYDROX/AL HYDROX/SIMETH 30 ML UNIT-DOSE CUP PO PRN (17:08)
[2018-02-12] MEDS ORDERED: diazePAM 5 MG TABLET PO PRN (17:08)
[2018-02-12] MEDS ORDERED: LOPERAMIDE HCL 2 MG CAPSULE PO PRN (17:08)
[2018-02-12] MEDS ORDERED: IBUPROFEN 400 MG TABLET (FP) PO PRN (17:08)
[2018-02-12] MEDS ORDERED: MAGNESIUM HYDROX 2400MG/30ML ORAL SUSPENSION 30 ML CUP PO PRN (17:08)
[2018-02-12] MEDS ORDERED: NICOTINE POLACRILEX 2 MG GUM BUC PRN (17:08)
[2018-02-12] MEDS ORDERED: ACETAMINOPHEN 325 MG TABLET (FP) PO PRN (17:16)
[2018-02-12] MEDS ORDERED: MAGNESIUM CITRATE 300 ML BOTTLE PO PRN (17:18)
[2018-02-12] MEDS ORDERED: ALBUTEROL SO4 18 GM HFA INHALER IH PRN (17:18)
[2018-02-12] MEDS ORDERED: guaiFENesin/D-METHORPHAN HB 10 ML UNIT-DOSE CUPS PO PRN (17:18)
[2018-02-12] MEDS ORDERED: METHADONE HCL 10 MG TABLET (FOR DETOX USE ONLY) PO ONE ×3 (17:30→23:00)
[2018-02-12] MEDS ORDERED: diazePAM 5 MG TABLET PO ONE (17:30)
[2018-02-12] MEDS: NICOTINE 21 MG/24 HOURS TOPICAL PATCH TD SCH (20:08)
[2018-02-12] MEDS: ASPIRIN COATED 81 MG TABLET.EC PO SCH (20:08)
[2018-02-12] MEDS: valACYclovir HCL 500 MG TABLET (FP) PO SCH (20:08)
[2018-02-12] MEDS: amLODIPine BESYLATE 10 MG TABLET (FP) PO SCH (20:08)
[2018-02-12] MEDS ORDERED: MELATONIN 5 MG TABLETS PO PRN (22:00)
[2018-02-12] MEDS: THIAMINE HCL 100 MG TABLET (FP) PO SCH (22:10)
[2018-02-12] MEDS: BACITRACIN 0.9 GM PACKET TP SCH (22:10)
[2018-02-12] MEDS: diazePAM 5 MG TABLET PO SCH (22:11)
[2018-02-13] MEDS: diazePAM 5 MG TABLET PO SCH ×3 (05:20→22:20)
--- NOTE | 2018-02-13 09:02 | CONSULT ---
[facility] Psychiatric Consult - Data Date of interview: 02/13/18 Admission source: [facility] Identifying data: This is 58 years old male, , homless, unemployrd, on PA , with Bipolar Disorder history, psychiatric hospitalizations history, with a long history of alcohol, crack cocaine, heroin addiction presents for detox with withdrawal symptoms. Substance Abuse History: Smoking history: Current every day smoker. Have you smoked in the past 12 months: Yes. Aproximately how many cigarettes per day: 20. Cigars Per Day: 0. Hx Chewing Tobacco Use: No. Initiated information on smoking cessation: Yes. 'Breaking Loose' booklet given: 02/12/18. - Substance & Tx. History. Hx Alcohol Use: Yes. - Substances Abused. Alcohol. Route: Oral. Frequency: Daily. Amount used: LIQUOR- 1PINT, BEER- 6 (40oz). Age of first use: 17. Date of Last Use: 02/12/18. Heroin. Route: Inhalation. Frequency: Daily. Amount used: 2 bags. Age of first use: 32. Date of Last Use : 02/11/18. Crack. Route: Smoking. Frequency: Daily. Amount used: 20 bags ($200). Age of first use: 35. Date of Last Use: 02/11/18 Medical History: Patient reports HIV, AIDs, HTN, Asthma, BPH, Hep C, Cirrhiosis , Weight loss history, Anemia, Hypercholesterolemia. Psychiatric History: Patient reports anxiety and depression,l reports taking prior to admission Seroquel 100mg po qhs, reports mrecent, 2 months ago, psychiatric admission at [facility] for safety. Patient minimising his past psychiatric history, as per computer patisb suffers with Bipolar Disorder, Schizophrenia, has been taking Depakote 250mg po bid in thye past Physical/Sexual Abuse/Trauma History: Denies Additional Comment: Seroquel 100mg po qhs Mental Status Exam - Mental Status Exam Alert and Oriented to: Person Cognitive Function: Fair Patient Appearance: Unkempt Mood: Anxious Affect: Mood Congruent Speech Pattern: Appropriate Voice Loudness: Mildly Soft/Quiet Thought Process: Goal Oriented Thought Disorder: Being Controlled Hallucinations: Denies Suicidal Ideation: Denies Homicidal Ideation: Denies Insight/Judgement: Fair Sleep: Difficulty falling asleep Appetite: Weight loss Muscle strength/Tone: Mild Hypotonicity Gait/Station: Shuffling Additional Comments: Seroquel 100mg po qhs Psychiatric Findings - Problem List ([place] 1, 2,3) (1) Alcohol dependence with uncomplicated withdrawal Current Visit: Yes Status: Acute (2) Opioid dependence with withdrawal Current Visit: Yes Status: Acute (3) Substance induced mood disorder Current Visit: Yes Status: Chronic (4) Substance-induced sleep disorder Current Visit: Yes Status: Chronic (5) Alcohol dependence Current Visit: No Status: Acute (6) Marijuana dependence Current Visit: No Status: Acute (7) Bipolar 1 disorder Current Visit: No Status: Chronic (8) Cocaine dependence Current Visit: No Status: Chronic Qualifiers: Substance use status: uncomplicated Qualified Code(s): F14.20 - Cocaine dependence, uncomplicated (9) Cocaine dependence Current Visit: No Status: Chronic Qualifiers: Substance use status: uncomplicated Qualified Code(s): F14.20 - Cocaine dependence, uncomplicated (10) Schizoaffective disorder Current Visit: No Status: Suspected Qualifiers: Schizoaffective disorder type: bipolar Qualified Code(s): F25.0 - Schizoaffective disorder, bipolar type Comment: As per self-report and old records.No compliance with OPD care. (11) Schizophrenia Current Visit: No Status: Suspected Qualifiers: Schizophrenia type: unspecified Qualified Code(s): F20.9 - Schizophrenia, unspecified - Initial Treatment Plan Initial Treatment Plan: Seroquel 100mg po qhs
--- NOTE | 2018-02-13 09:52 | PN ---
[facility] CIWA - CIWA Score Nausea/Vomitin Muscle Tremors: 3 Anxiety: 3 Agitation: 2 Paroxysmal Sweats: 1-Minimal Palms Moist Orientation: 0-Oriented Tacttile Disturbances: 1-Very Mild Itch/Numbness Auditory Disturbances: 1-Very Mild Visual Disturbances: 0-None Headache: 2-Mild CIWA-Ar Total Score: 16 BHS COWS - Scale Resting Pulse: 1= [place] 81-100 Sweatin= Chills/Flushing Restless Observation: 3= Extraneous Movement Pupil Size: 1= Pupils >than Normal Bone or Joint Aches: 2= Severe Diffuse Aches Runny Nose/ Eye Tearin= Nasal Congestion GI Upset > 30mins: 2= Nausea/Diarrhea Tremor Observation of Outstretched Hands: 2= Slight Tremor Visible Yawning Observation: 1= 1-2x During Session Anxiety or Irritability: 1=Feels Anxious/Irritable Goose Flesh Skin: 0=Smooth Skin COWS Score: 15 BHS Progress Note (SOAP) Subjective: ALERT,IRRITABLE.ANXIOUS,PAIN IN THE BODY,BACK,TREMOR,INTERRUPTED SLEEP Objective: 02/13/18 09:50 Vital Signs Temperature 95.9 F L 02/13/18 09:48 Pulse Rate 62 02/13/18 09:48 Respiratory Rate 20 02/13/18 09:48 Blood Pressure 142/87 02/13/18 09:48 O2 Sat by Pulse Oximetry (%) LABS PENDING Assessment: 02/13/18 09:51 WITHDRAWAL SYMPTOM Plan: CONTINUE DETOX
[2018-02-13] MEDS ORDERED: METHADONE HCL 10 MG TABLET (FOR DETOX USE ONLY) PO SCH (10:00)
[2018-02-13] MEDS: valACYclovir HCL 500 MG TABLET (FP) PO SCH (10:29)
[2018-02-13] MEDS: ASPIRIN COATED 81 MG TABLET.EC PO SCH (10:29)
[2018-02-13] MEDS: TAMSULOSIN HCL 0.4 MG CAP.ER.24H (FP) PO SCH (10:29)
[2018-02-13] MEDS: PRENATAL VITAMINS W/ FOLIC ACID TABLET (FP) PO SCH (10:29)
[2018-02-13] MEDS: amLODIPine BESYLATE 10 MG TABLET (FP) PO SCH (10:29)
[2018-02-13] MEDS: BACITRACIN 0.9 GM PACKET TP SCH ×2 (10:30→22:21)
[2018-02-13] MEDS: NICOTINE 21 MG/24 HOURS TOPICAL PATCH TD SCH (10:30)
[2018-02-13 10:51] LABS: CALCIUM 8.4 mg/dL (8.5-10.1); CHLORIDE 105 mmol/L (98-107); POTASSIUM 3.9 mmol/L (3.5-5.1); SODIUM 138 mmol/L (136-145)
[2018-02-13 10:58] LABS: ALBUMIN 3.2 g/dl (3.4-5.0); ALK PHOS 104 U/L (45-117); ANION GAP 5 (8-16); BILIRUBIN,TOTAL 0.3 mg/dL (0.2-1.0); BLOOD UREA NITROGEN 21 mg/dL (7-18); CO2 28 mmol/L (21-32); GLUCOSE,RANDOM 93 mg/dL (74-106); SGOT/AST 30 U/L (15-37); SGPT/ALT 50 U/L (12-78); TOT PROT 7.8 g/dl (6.4-8.2)
[2018-02-13 11:03] LABS: HEMATOCRIT 40.6 % (35.4-49); HEMOGLOBIN 13.9 GM/dL (11.7-16.9); MCH 31.4 pg (25.7-33.7); MCHC 34.1 g/dl (32.0-35.9); MEAN CELL VOLUME 92.1 fl (80-96); MEAN PLT VOLUME 9.3 fl (7.5-11.1); PLATELET COUNT 259 K/MM3 (134-434); RBC 4.41 M/mm3 (4.00-5.60); WHITE BLOOD COUNT 5.8 K/mm3 (4.0-10.0)
[2018-02-13] MEDS: QUEtiapine FUMARATE 100 MG TABLET (FP) PO SCH (22:20)
[2018-02-13] MEDS: THIAMINE HCL 100 MG TABLET (FP) PO SCH (22:20)
--- NOTE | 2018-02-13 23:48 | EKG ---
Test Reason : Blood Pressure : / mmHG Vent. Rate : 060 BPM Atrial Rate : 060 BPM P-R Int : 132 ms QRS Dur : 084 ms QT Int : 440 ms P-R-T Axes : 030 052 044 degrees QTc Int : 440 ms NORMAL SINUS RHYTHM NORMAL ECG WHEN COMPARED WITH ECG OF 23-DEC-2017 21:11, NO SIGNIFICANT CHANGE WAS FOUND Confirmed by KARLEE KIMBALL MD ([id number]) on 02/13/2018 11:48:05 PM Referred By: Confirmed By:KARLEE KIMBALL MD
--- NOTE | 2018-02-14 09:25 | PN ---
S CIWA - CIWA Score Nausea/Vomitin Muscle Tremors: 3 Anxiety: 3 Agitation: 2 Paroxysmal Sweats: 1-Minimal Palms Moist Orientation: 0-Oriented Tacttile Disturbances: 1-Very Mild Itch/Numbness Auditory Disturbances: 1-Very Mild Visual Disturbances: 0-None Headache: 2-Mild CIWA-Ar Total Score: 16 BHS COWS - Scale Resting Pulse: 0= [place] 80 or Below Sweatin= Chills/Flushing Restless Observation: 3= Extraneous Movement Pupil Size: 1= Pupils >than Normal Bone or Joint Aches: 2= Severe Diffuse Aches Runny Nose/ Eye Tearin= Runny Nose/Eyes GI Upset > 30mins: 1= Stomach Cramp Tremor Observation of Outstretched Hands: 2= Slight Tremor Visible Yawning Observation: 1= 1-2x During Session Anxiety or Irritability: 2=Irritable/Anxious Goose Flesh Skin: 0=Smooth Skin COWS Score: 15 S Progress Note (SOAP) Subjective: ALERT,IRRITABLE,ANXIOUS,PAIN IN THE BODY AND BACK Objective: 02/14/18 09:24 Vital Signs Temperature 96.4 F L 02/14/18 09:07 Pulse Rate 76 02/14/18 09:07 Respiratory Rate 18 02/14/18 09:07 Blood Pressure 140/86 02/14/18 09:07 O2 Sat by Pulse Oximetry (%) Vital Signs Temperature 96.4 F L 02/14/18 09:07 Pulse Rate 76 02/14/18 09:07 Respiratory Rate 18 02/14/18 09:07 Blood Pressure 140/86 02/14/18 09:07 O2 Sat by Pulse Oximetry (%) 02/14/18 09:24 Laboratory Last Values WBC 5.8 K/mm3 (4.0-10.0) 02/13/18 07:00 RBC 4.41 M/mm3 (4.00-5.60) 02/13/18 07:00 Hgb 13.9 GM/dL (11.7-16.9) 02/13/18 07:00 Hct 40.6 % (35.4-49) 02/13/18 07:00 MCV 92.1 fl (80-96) 02/13/18 07:00 MCH 31.4 pg (25.7-33.7) 02/13/18 07:00 MCHC 34.1 g/dl (32.0-35.9) 02/13/18 07:00 RDW 14.0 % (11.9-15.9) 02/13/18 07:00 Plt Count 259 K/MM3 (134-434) 02/13/18 07:00 MPV 9.3 fl (7.5-11.1) 02/13/18 07:00 Sodium 138 mmol/L (136-145) 02/13/18 07:00 Potassium 3.9 mmol/L (3.5-5.1) 02/13/18 07:00 Chloride 105 mmol/L (98-107) 02/13/18 07:00 Carbon Dioxide 28 mmol/L (21-32) D 02/13/18 07:00 Anion Gap 5 (8-16) L 02/13/18 07:00 BUN 21 mg/dL (7-18) H 02/13/18 07:00 Creatinine 1.0 mg/dL (0.7-1.3) 02/13/18 07:00 Creat Clearance w eGFR > 60 (>60) 02/13/18 07:00 Random Glucose 93 mg/dL (74-106) 02/13/18 07:00 Calcium 8.4 mg/dL (8.5-10.1) L 02/13/18 07:00 Total Bilirubin 0.3 mg/dL (0.2-1.0) 02/13/18 07:00 AST 30 U/L (15-37) 02/13/18 07:00 ALT 50 U/L (12-78) 02/13/18 07:00 Alkaline Phosphatase 104 U/L (45-117) 02/13/18 07:00 Total Protein 7.8 g/dl (6.4-8.2) 02/13/18 07:00 Albumin 3.2 g/dl (3.4-5.0) L 02/13/18 07:00 RPR Titer Nonreactive (NONREACTIVE) 02/13/18 07:00 Assessment: 02/14/18 09:25 WITHDRAWAL SYMPTOM Plan: CONTINUE DETOX
[2018-02-14 10:18] LABS: URINE APPEARANCE CLEAR; URINE BILIRUBIN NEGATIVE (<2.0 mg/dL); URINE COLOR LTYELLOW; URINE GLUCOSE (UA) NEGATIVE (NEGATIVE); URINE KETONE NEGATIVE (NEGATIVE); URINE LEUK ESTERASE NEGATIVE (NEGATIVE); URINE NITRITE NEGATIVE (NEGATIVE); URINE PROTEIN NEGATIVE (NEGATIVE); URINE UROBILINOGEN NEGATIVE mg/dL (0.2-1.0)
[2018-02-14] MEDS: valACYclovir HCL 500 MG TABLET (FP) PO SCH (10:30)
[2018-02-14] MEDS: PRENATAL VITAMINS W/ FOLIC ACID TABLET (FP) PO SCH (10:52)
[2018-02-14] MEDS: BACITRACIN 0.9 GM PACKET TP SCH ×2 (10:52→23:06)
[2018-02-14] MEDS: diazePAM 5 MG TABLET PO SCH ×2 (10:52→22:10)
[2018-02-14] MEDS: amLODIPine BESYLATE 10 MG TABLET (FP) PO SCH (10:53)
[2018-02-14] MEDS: METHADONE HCL 5 MG TABLET (FOR DETOX USE ONLY) PO SCH (10:53)
[2018-02-14] MEDS: ASPIRIN COATED 81 MG TABLET.EC PO SCH (10:53)
[2018-02-14] MEDS: TAMSULOSIN HCL 0.4 MG CAP.ER.24H (FP) PO SCH (10:53)
[2018-02-14] MEDS: NICOTINE 21 MG/24 HOURS TOPICAL PATCH TD SCH (10:57)
[2018-02-14] MEDS: QUEtiapine FUMARATE 100 MG TABLET (FP) PO SCH (22:10)
[2018-02-14] MEDS: THIAMINE HCL 100 MG TABLET (FP) PO SCH (22:10)
[2018-02-15] MEDS: TAMSULOSIN HCL 0.4 MG CAP.ER.24H (FP) PO SCH (08:53)
[2018-02-15] MEDS: BACITRACIN 0.9 GM PACKET TP SCH ×2 (10:09→22:14)
--- NOTE | 2018-02-15 10:09 | PN ---
BHS Progress Note (SOAP) Subjective: ALERT,INTERRUPTED SLEEP,ACHING PAIN Objective: 02/15/18 10:07 Vital Signs Temperature 97.2 F L 02/15/18 09:08 Pulse Rate 63 02/15/18 09:08 Respiratory Rate 16 02/15/18 09:08 Blood Pressure 135/70 02/15/18 09:08 O2 Sat by Pulse Oximetry (%) Assessment: 02/15/18 10:08 WITHDRAWAL SYMPTOM Plan: CONTINUE DETOX
[2018-02-15] MEDS: METHADONE HCL 5 MG TABLET (FOR DETOX USE ONLY) PO SCH (10:10)
[2018-02-15] MEDS: PRENATAL VITAMINS W/ FOLIC ACID TABLET (FP) PO SCH (10:10)
[2018-02-15] MEDS: amLODIPine BESYLATE 10 MG TABLET (FP) PO SCH (10:10)
[2018-02-15] MEDS: ASPIRIN COATED 81 MG TABLET.EC PO SCH (10:10)
[2018-02-15] MEDS: diazePAM 5 MG TABLET PO SCH ×2 (10:10→22:12)
[2018-02-15] MEDS: valACYclovir HCL 500 MG TABLET (FP) PO SCH (10:10)
[2018-02-15] MEDS: NICOTINE 21 MG/24 HOURS TOPICAL PATCH TD SCH (10:14)
[2018-02-15] MEDS: THIAMINE HCL 100 MG TABLET (FP) PO SCH (22:12)
[2018-02-15] MEDS: QUEtiapine FUMARATE 100 MG TABLET (FP) PO SCH (22:12)
--- NOTE | 2018-02-16 09:52 | PN ---
S Progress Note (SOAP) Subjective: ALERT,IRRITABLE,ANXIOUS,INTERRUPTED Objective: 02/16/18 09:51 Vital Signs Temperature 96.1 F L 02/16/18 09:11 Pulse Rate 105 H 02/16/18 09:11 Respiratory Rate 16 02/16/18 09:11 Blood Pressure 137/77 02/16/18 09:11 O2 Sat by Pulse Oximetry (%) Assessment: 02/16/18 09:51 WITHDRAWAL SYMPTOM Plan: CONTINUE DETOX
[2018-02-16] MEDS ORDERED: diazePAM 5 MG TABLET PO SCH (10:00)
[2018-02-16] MEDS ORDERED: METHADONE HCL 10 MG TABLET (FOR DETOX USE ONLY) PO SCH (10:00)
[2018-02-16] MEDS: hydrOXYzine PAMOATE 50 MG CAPSULE (FP) PO PRN (10:31)
[2018-02-16] MEDS: PRENATAL VITAMINS W/ FOLIC ACID TABLET (FP) PO SCH (10:31)
[2018-02-16] MEDS: ASPIRIN COATED 81 MG TABLET.EC PO SCH (10:31)
[2018-02-16] MEDS: amLODIPine BESYLATE 10 MG TABLET (FP) PO SCH (10:31)
[2018-02-16] MEDS: valACYclovir HCL 500 MG TABLET (FP) PO SCH (10:31)
[2018-02-16] MEDS: TAMSULOSIN HCL 0.4 MG CAP.ER.24H (FP) PO SCH (10:31)
[2018-02-16] MEDS: NICOTINE 21 MG/24 HOURS TOPICAL PATCH TD SCH (10:32)
[2018-02-16] MEDS: BACITRACIN 0.9 GM PACKET TP SCH ×2 (10:32→21:12)
[2018-02-16] MEDS: QUEtiapine FUMARATE 100 MG TABLET (FP) PO SCH (21:12)
[2018-02-16] MEDS: THIAMINE HCL 100 MG TABLET (FP) PO SCH (21:12)
[2018-02-17] MEDS ORDERED: METHADONE HCL 5 MG TABLET (FOR DETOX USE ONLY) PO SCH (06:00)
--- NOTE | 2018-02-17 08:41 | PN ---
BHS Progress Note (SOAP) Subjective: alert,nausea,feel weak,pain in the body, Objective: 02/17/18 08:40 Vital Signs Temperature 97.9 F 02/17/18 06:00 Pulse Rate 74 02/17/18 06:00 Respiratory Rate 18 02/17/18 06:00 Blood Pressure 133/75 02/17/18 06:00 O2 Sat by Pulse Oximetry (%) Assessment: 02/17/18 08:40 withdrawal symptom Plan: will observe patient for 24 hrs,zofran 4 mgs sl prn q 6hrs for nausea and vomiting
[2018-02-17] MEDS ORDERED: ONDANSETRON *ODT* 4 MG TABLET SL PRN (08:42)
[2018-02-17] MEDS: amLODIPine BESYLATE 10 MG TABLET (FP) PO SCH (09:30)
[2018-02-17] MEDS: PRENATAL VITAMINS W/ FOLIC ACID TABLET (FP) PO SCH (09:30)
[2018-02-17] MEDS: ASPIRIN COATED 81 MG TABLET.EC PO SCH (09:31)
[2018-02-17] MEDS: BACITRACIN 0.9 GM PACKET TP SCH ×2 (09:31→22:07)
[2018-02-17] MEDS: TAMSULOSIN HCL 0.4 MG CAP.ER.24H (FP) PO SCH (09:31)
[2018-02-17] MEDS: valACYclovir HCL 500 MG TABLET (FP) PO SCH (09:31)
[2018-02-17] MEDS: NICOTINE 21 MG/24 HOURS TOPICAL PATCH TD SCH (11:53)
[2018-02-17] MEDS: hydrOXYzine PAMOATE 50 MG CAPSULE (FP) PO PRN (14:44)
[2018-02-17] MEDS: QUEtiapine FUMARATE 100 MG TABLET (FP) PO SCH (22:07)
[2018-02-17] MEDS: THIAMINE HCL 100 MG TABLET (FP) PO SCH (22:07)
[2018-02-18 07:08] VITALS: PULSE 73
--- NOTE | 2018-02-18 08:21 | PN ---
S Progress Note (SOAP) Subjective: ALERT,NO COMPLAINT Objective: 02/18/18 08:20 Vital Signs Temperature 97.3 F L 02/18/18 07:03 Pulse Rate 73 02/18/18 07:03 Respiratory Rate 18 02/18/18 07:03 Blood Pressure 136/74 02/18/18 07:03 O2 Sat by Pulse Oximetry (%) Assessment: 02/18/18 08:20 DETOX COMPLETED,NO WITHDRAWAL SYMPTOM Plan: DISCHARGE TODAY,FOLLOW UP WITH AFTER CARE PROGRAM ARRANGEMENT
--- NOTE | 2018-02-18 08:22 | DS ---
[facility] Admission Date: 02/12/18 Discharge Date: 02/18/18 - History Present History: Alcohol Dependence, Cocaine Dependence, Opioid Dependence Additional Comments: FOLLOW UP WITH AFTER CARE PROGRAM ARRANGEMENT Pertinent Past History: AIDS ASTHMA WEIGHT LOSS BPH HYPERTENSION CIRRHOSIS OF LIVER SUBSTANCE INDUED MOOD DISORDER SUBSTANCE INDUCED SLEEP DISORDER HISTORY OF GENITAL HERPES - Physical Exam Results Vital Signs: Vital Signs Temperature 97.3 F L 02/18/18 07:03 Pulse Rate 73 02/18/18 07:03 Respiratory Rate 18 02/18/18 07:03 Blood Pressure 136/74 02/18/18 07:03 O2 Sat by Pulse Oximetry (%) Pertinent Admission Physical Exam Findings: WITHDRAWAL SIGNS AND SYMPTOM Vital Signs Temperature 97.3 F L 02/18/18 07:03 Pulse Rate 73 02/18/18 07:03 Respiratory Rate 18 02/18/18 07:03 Blood Pressure 136/74 02/18/18 07:03 O2 Sat by Pulse Oximetry (%) Laboratory Last Values WBC 5.8 K/mm3 (4.0-10.0) 02/13/18 07:00 RBC 4.41 M/mm3 (4.00-5.60) 02/13/18 07:00 Hgb 13.9 GM/dL (11.7-16.9) 02/13/18 07:00 Hct 40.6 % (35.4-49) 02/13/18 07:00 MCV 92.1 fl (80-96) 02/13/18 07:00 MCH 31.4 pg (25.7-33.7) 02/13/18 07:00 MCHC 34.1 g/dl (32.0-35.9) 02/13/18 07:00 RDW 14.0 % (11.9-15.9) 02/13/18 07:00 Plt Count 259 K/MM3 (134-434) 02/13/18 07:00 MPV 9.3 fl (7.5-11.1) 02/13/18 07:00 Sodium 138 mmol/L (136-145) 02/13/18 07:00 Potassium 3.9 mmol/L (3.5-5.1) 02/13/18 07:00 Chloride 105 mmol/L (98-107) 02/13/18 07:00 Carbon Dioxide 28 mmol/L (21-32) D 02/13/18 07:00 Anion Gap 5 (8-16) L 02/13/18 07:00 BUN 21 mg/dL (7-18) H 02/13/18 07:00 Creatinine 1.0 mg/dL (0.7-1.3) 02/13/18 07:00 Creat Clearance w eGFR > 60 (>60) 02/13/18 07:00 Random Glucose 93 mg/dL (74-106) 02/13/18 07:00 Calcium 8.4 mg/dL (8.5-10.1) L 02/13/18 07:00 Total Bilirubin 0.3 mg/dL (0.2-1.0) 02/13/18 07:00 AST 30 U/L (15-37) 02/13/18 07:00 ALT 50 U/L (12-78) 02/13/18 07:00 Alkaline Phosphatase 104 U/L (45-117) 02/13/18 07:00 Total Protein 7.8 g/dl (6.4-8.2) 02/13/18 07:00 Albumin 3.2 g/dl (3.4-5.0) L 02/13/18 07:00 Urine Color Ltyellow 02/13/18 14:00 Urine Appearance Clear 02/13/18 14:00 Urine pH 6.0 (5.0-8.0) 02/13/18 14:00 Ur Specific [place] 1.017 (1.001-1.035) 02/13/18 14:00 Urine Protein Negative (NEGATIVE) 02/13/18 14:00 Urine Glucose (UA) Negative (NEGATIVE) 02/13/18 14:00 Urine Ketones Negative (NEGATIVE) 02/13/18 14:00 Urine Blood Negative (NEGATIVE) 02/13/18 14:00 Urine Nitrite Negative (NEGATIVE) 02/13/18 14:00 Urine Bilirubin Negative (<2.0 mg/dL) 02/13/18 14:00 Urine Urobilinogen Negative mg/dL (0.2-1.0) 02/13/18 14:00 Ur Leukocyte Esterase Negative (NEGATIVE) 02/13/18 14:00 RPR Titer Nonreactive (NONREACTIVE) 02/13/18 07:00 - Treatment Hospital Course: Detox Protocol Followed, Detoxed Safely, Responded well, Discharged Condition Good Patient has Accepted a Rehab Referral to: DECLINED - Medication Discharge Medications: Ambulatory Orders Elviteg/Cob/Emtri/Tenof Alafen [Genvoya (Non-Formulary)] 1 each PO DAILY #30 tablet 10/31/17 Fluticasone/Salmeterol [Advair 250-50 Diskus] 1 each IH DAILY 12/23/17 Albuterol Sulfate Inhaler - [Ventolin HFA Inhaler -] 2 puff IH Q4H PRN #1 inhaler 12/28/17 Amlodipine Besylate [Norvasc -] 10 mg PO DAILY #30 tablet 12/28/17 Aspirin 81 mg PO DAILY #30 tab.chew 12/28/17 Divalproex [Depakote -] 250 mg PO DAILY #30 tablet.ec 12/28/17 Quetiapine Fumarate [Seroquel] 100 mg PO HS #30 tablet 12/28/17 Tamsulosin HCl [Flomax -] 0.4 mg PO DAILY #30 capsule 12/28/17 Valacyclovir HCl [Valtrex -] 500 mg PO DAILY #30 tablet 12/28/17 - Diagnosis (1) Opioid dependence with withdrawal Current Visit: Yes Status: Acute (2) Alcohol dependence with uncomplicated withdrawal Current Visit: Yes Status: Acute (3) AIDS (acquired immune deficiency syndrome) Current Visit: Yes Status: Chronic (4) Asthma Current Visit: Yes Status: Chronic Qualifiers: Asthma severity: mild Asthma persistence: unspecified Asthma complication type: uncomplicated Qualified Code(s): J45.909 - Unspecified asthma, uncomplicated (5) BPH (benign prostatic hypertrophy) Current Visit: Yes Status: Chronic Qualifiers: Lower urinary tract symptom presence: symptoms absent Qualified Code(s): N40.0 - Benign prostatic hyperplasia without lower urinary tract symptoms (6) Hypertension Current Visit: Yes Status: Chronic Qualifiers: Hypertension type: essential hypertension Qualified Code(s): I10 - Essential (primary) hypertension (7) Substance induced mood disorder Current Visit: Yes Status: Chronic (8) Substance-induced sleep disorder Current Visit: Yes Status: Chronic (9) Weight loss Current Visit: Yes Status: Chronic (10) History of herpes genitalis Current Visit: No Status: Chronic (11) Hypercholesterolemia Current Visit: No Status: Chronic (12) Nicotine dependence Current Visit: No Status: Chronic Qualifiers: Nicotine product type: cigarettes Substance use status: uncomplicated Qualified Code(s): F17.210 - Nicotine dependence, cigarettes, uncomplicated - AMA Did Patient Leave Against Medical Advice: No
[2018-02-18 09:15] VITALS: BP 136/80; TEMP 98.6
[2018-02-18] MEDS: valACYclovir HCL 500 MG TABLET (FP) PO SCH (10:11)
[2018-02-18] MEDS: PRENATAL VITAMINS W/ FOLIC ACID TABLET (FP) PO SCH (10:11)
[2018-02-18] MEDS: BACITRACIN 0.9 GM PACKET TP SCH (10:11)
[2018-02-18] MEDS: amLODIPine BESYLATE 10 MG TABLET (FP) PO SCH (10:11)
[2018-02-18] MEDS: ASPIRIN COATED 81 MG TABLET.EC PO SCH (10:11)
[2018-02-18] MEDS: TAMSULOSIN HCL 0.4 MG CAP.ER.24H (FP) PO SCH (10:11)
== END 2018-02-18 10:46 | disposition home or self-care (01) | DRG 773 ==
LOC: YASAS 11:58 → Y6N 15:21
PROVIDERS: ADMIT Surgery; ATTEND Surgery
PROC: HZ2ZZZZ Detoxification Services for Substance Abuse Treatment (ICD-10-PCS; principal; 2018-02-12)
DX: F11.23 Opioid dependence with withdrawal (principal); F10.230 Alcohol dependence with withdrawal, uncomplicated; F14.20 Cocaine dependence, uncomplicated; F19.24 Other psychoactive substance dependence with psychoactive substance-induced mood disorder; F19.282 Other psychoactive substance dependence with psychoactive substance-induced sleep disorder; I10 Essential (primary) hypertension; N40.0 Benign prostatic hyperplasia without lower urinary tract symptoms; J45.909 Unspecified asthma, uncomplicated; Z21 Asymptomatic human immunodeficiency virus [HIV] infection status; Z86.19 Personal history of other infectious and parasitic diseases; K74.60 Unspecified cirrhosis of liver; R63.4 Abnormal weight loss; Z68.23 Body mass index [BMI] 23.0-23.9, adult
CPT/HCPCS: 36415; 80053; 81003; 85027; 86593; 93005; 93010; Q0162

== ENCOUNTER 2018-03-14 22:41 | Inpatient (IN) | payer OTHER ==
[~2018-03-14 22:41] MED LIST: MELATONIN 5 MG TABLETS PO PRN
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
[2018-03-14 23:23] VITALS: BMI 24.7
[2018-03-14] MEDS ORDERED: ALBUTEROL SO4 18 GM HFA INHALER IH PRN (23:27)
[2018-03-14] MEDS ORDERED: ACETAMINOPHEN 325 MG TABLET (FP) PO PRN (23:28)
[2018-03-14] MEDS ORDERED: MAGNESIUM HYDROX 2400MG/30ML ORAL SUSPENSION 30 ML CUP PO PRN (23:28)
[2018-03-14] MEDS ORDERED: NICOTINE POLACRILEX 2 MG GUM BC PRN (23:28)
[2018-03-14] MEDS ORDERED: MAGNESIUM CITRATE 300 ML BOTTLE PO PRN (23:28)
[2018-03-14] MEDS ORDERED: P-EPHED 60MG/TRIPROLIDI 2.5MG TABLET PO PRN (23:28)
[2018-03-14] MEDS ORDERED: IBUPROFEN 400 MG TABLET (FP) PO PRN (23:28)
[2018-03-14] MEDS ORDERED: LOPERAMIDE HCL 2 MG CAPSULE PO PRN (23:28)
[2018-03-14] MEDS ORDERED: guaiFENesin/D-METHORPHAN HB 10 ML UNIT-DOSE CUPS PO PRN (23:28)
[2018-03-14] MEDS ORDERED: MAG HYDROX/AL HYDROX/SIMETH 30 ML UNIT-DOSE CUP PO PRN (23:28)
[2018-03-14] MEDS ORDERED: hydrOXYzine PAMOATE 50 MG CAPSULE (FP) PO PRN (23:28)
[2018-03-14] MEDS ORDERED: MENTHOL/PHENOL 1 EACH UD MM PRN (23:28)
[2018-03-14] MEDS ORDERED: diazePAM 5 MG TABLET PO ONE (23:30)
[2018-03-15] MEDS: diazePAM 5 MG TABLET PO SCH ×4 (00:38→22:09)
[2018-03-15] MEDS: diazePAM 5 MG TABLET PO PRN ×2 (00:56→09:24)
[2018-03-15] MEDS: TAMSULOSIN HCL 0.4 MG CAP.ER.24H (FP) PO SCH (09:24)
[2018-03-15] MEDS ORDERED: valACYclovir HCL 500 MG TABLET (FP) PO SCH (10:00)
[2018-03-15] MEDS: NICOTINE 21 MG/24 HOURS TOPICAL PATCH TD SCH (10:23)
[2018-03-15] MEDS: PRENATAL VITAMINS W/ FOLIC ACID TABLET (FP) PO SCH (10:23)
[2018-03-15] MEDS: ASPIRIN 81 MG CHEWABLE TABLETS PO SCH (10:23)
[2018-03-15] MEDS: amLODIPine BESYLATE 10 MG TABLET (FP) PO SCH (10:23)
--- NOTE | 2018-03-15 10:47 | EKG ---
Test Reason : Blood Pressure : / mmHG Vent. Rate : 065 BPM Atrial Rate : 065 BPM P-R Int : 132 ms QRS Dur : 092 ms QT Int : 418 ms P-R-T Axes : 071 056 026 degrees QTc Int : 434 ms NORMAL SINUS RHYTHM MODERATE VOLTAGE CRITERIA FOR LVH, MAY BE NORMAL VARIANT BORDERLINE ECG WHEN COMPARED WITH ECG OF 12-FEB-2018 19:58, ST ELEVATION NOW PRESENT IN ANTERIOR LEADS Confirmed by ALIX ESTEVEZ, KYLER ([id number]) on 03/15/2018 10:47:07 AM Referred By: Confirmed By:KYLER THOMSON MD
[2018-03-15 11:03] LABS: HEMATOCRIT 43.1 % (35.4-49); HEMOGLOBIN 14.6 GM/dL (11.7-16.9); MCH 31.1 pg (25.7-33.7); MCHC 33.9 g/dl (32.0-35.9); MEAN CELL VOLUME 91.8 fl (80-96); MEAN PLT VOLUME 8.7 fl (7.5-11.1); PLATELET COUNT 254 K/MM3 (134-434); RDW 15.3 % (11.9-15.9); WHITE BLOOD COUNT 7.7 K/mm3 (4.0-10.0)
[2018-03-15 11:19] LABS: URINE APPEARANCE TURBID; URINE BILIRUBIN NEGATIVE (<2.0 mg/dL); URINE COLOR LTYELLOW; URINE GLUCOSE (UA) NEGATIVE (NEGATIVE); URINE KETONE NEGATIVE (NEGATIVE); URINE LEUK ESTERASE NEGATIVE (NEGATIVE); URINE NITRITE NEGATIVE (NEGATIVE); URINE PROTEIN NEGATIVE (NEGATIVE); URINE UROBILINOGEN NEGATIVE mg/dL (0.2-1.0)
[2018-03-15 12:05] LABS: ALBUMIN 3.6 g/dl (3.4-5.0); ANION GAP 10 (8-16); BLOOD UREA NITROGEN 21 mg/dL (7-18); CALCIUM 8.3 mg/dL (8.5-10.1); CHLORIDE 108 mmol/L (98-107); CO2 22 mmol/L (21-32); CREATININE 1.2 mg/dL (0.7-1.3); GLUCOSE,RANDOM 100 mg/dL (74-106); POTASSIUM 3.9 mmol/L (3.5-5.1); SGOT/AST 39 U/L (15-37); SGPT/ALT 50 U/L (12-78); SODIUM 140 mmol/L (136-145)
[2018-03-15 12:07] LABS: ALK PHOS 88 U/L (45-117); BILIRUBIN,TOTAL 0.7 mg/dL (0.2-1.0); TOT PROT 8.7 g/dl (6.4-8.2)
--- NOTE | 2018-03-15 12:28 | PN ---
[facility] CIWA - CIWA Score Nausea/Vomitin-No Nausea/No Vomiting Muscle Tremors: 3 Anxiety: 4-Mod. Anxious/Guarded Agitation: 3 Paroxysmal Sweats: 3 Orientation: 0-Oriented Tacttile Disturbances: 2-Mild Itch/Numbness/Burn Auditory Disturbances: 2-Mild Harshness/Frighten Visual Disturbances: 0-None Headache: 0-None Present CIWA-Ar Total Score: 17 BHS Progress Note (SOAP) Subjective: Body Aches, Anxious, Sweating, Tremors. Patient reports a lesion on top of shaft of penis x 2-3 days. Patient denies discomfort / itch at site. Patient denies noticing any other lesions in penis / scrotal area. Objective: PATIENT A & O X 3, OBSERVED AMBULATING ON UNIT. NO ACUTE DISTRESS. MACULAR ERYTHEMATOUS LESION NOTED ON TOP OF SHAFT OF PENIS. NO BLEEDING OR UNUSUAL DISCHARGE NOTED AT SITE. PATIENT HAS A HISTORY OF HIV + AND OF PREVIOUS GENITAL HERPES OCCURRENCES. 03/15/18 12:29 Vital Signs Temperature 96.8 F L 03/15/18 09:15 Pulse Rate 67 03/15/18 09:15 Respiratory Rate 18 03/15/18 09:15 Blood Pressure 140/89 03/15/18 09:15 O2 Sat by Pulse Oximetry (%) Laboratory Tests 03/15/18 03/15/18 03/15/18 07:00 07:00 08:30 WBC 7.7 D RBC 4.70 Hgb 14.6 Hct 43.1 MCV 91.8 MCH 31.1 MCHC 33.9 RDW 15.3 Plt Count 254 MPV 8.7 Sodium 140 Potassium 3.9 Chloride 108 H Carbon Dioxide 22 D Anion Gap 10 BUN 21 H Creatinine 1.2 Creat Clearance w eGFR > 60 Random Glucose 100 Calcium 8.3 L Total Bilirubin 0.7 D AST 39 H D ALT 50 Alkaline Phosphatase 88 Total Protein 8.7 H Albumin 3.6 Urine Color Ltyellow Urine Appearance Turbid Urine pH 7.0 Ur Specific [place] 1.014 Urine Protein Negative Urine Glucose (UA) Negative Urine Ketones Negative Urine Blood Negative Urine Nitrite Negative Urine Bilirubin Negative Urine Urobilinogen Negative Ur Leukocyte Esterase Negative LABS NOTED. RPR RESULT PENDING. 03/15/18 12:35 Assessment: 03/15/18 12:30 WITHDRAWAL SYMPTOMS. Plan: CONTINUE DETOX. INCREASE DAILY PO FLUID INTAKE. INCREASE VALTREX TO 1000 MG PO BID X 5 DAYS.
[2018-03-15] MEDS: BACITRACIN 0.9 GM PACKET TP SCH ×2 (14:14→22:12)
--- NOTE | 2018-03-15 15:23 | CONSULT ---
[facility] Psychiatric Consult - Data Date of interview: 03/15/18 Admission source: [facility] Identifying data: Patient is a 58 year old male, without kids, unemployed, housing and financial support provided by [facility]. This is one of multiple admissions for patient. Pt. admitted to for alcohol dependence. Substance Abuse History: - Smoking Cessation. Smoking history: Current every day smoker. Have you smoked in the past 12 months: Yes. Aproximately how many cigarettes per day: 20. Cigars Per Day: 0. Hx Chewing Tobacco Use: No. Initiated information on smoking cessation: Yes. 'Breaking Loose' booklet given : 03/14/18. - Substance & Tx. History. Hx Alcohol Use: Yes. Hx Substance Use : Yes. Substance Use Type: Alcohol, Cocaine. Hx Substance Use Treatment: Yes ( [facility]). - Substances Abused. VODKA. Route: Oral. Frequency: Daily. Amount used: 1PINT. Age of first use: 19. Date of Last Use: 03/14/18. COCAINE. Route: Injection. Frequency: Daily. Amount used: $500. Age of first use: 34. Date of Last Use: 03/14/18 Medical History: Asthma, anemia, hypertension, Hep C, HIV, Herpes, benign prostatic hypertrophy Psychiatric History: Patient reports multiple psychiatric hospitalizations, most recently in january of 2018 at [facility] for suicidal ideation. Patient is also known to [facility]. Pt. is nonadherent to medication and OPD. Reports last taking psychotrophic medications when he was admitted to [facility] last month. Reports a diagnosis of schizophrenia and mood disorder. Pharmacy claims reviewed and noted a prescription of seroquel 200mg BID + Topamax 100mg BID sent to patient's pharmacy on 02/2018. Patient denies h/ o suicide attempt. Physical/Sexual Abuse/Trauma History: Denies. Mental Status Exam - Mental Status Exam Alert and Oriented to: Time, Place, Person Cognitive Function: Good Patient Appearance: Unkempt Mood: Euthymic Affect: Mood Congruent Patient Behavior: Cooperative Speech Pattern: Appropriate Voice Loudness: Normal Thought Process: Intact, Goal Oriented Thought Disorder: Not Present Hallucinations: Denies Suicidal Ideation: Denies Homicidal Ideation: Denies Insight/Judgement: Poor Sleep: Poorly Appetite: Fair Muscle strength/Tone: Normal Gait/Station: Normal Psychiatric Findings - Problem List ([place] 1, 2,3) (1) Alcohol dependence with uncomplicated withdrawal Current Visit: Yes Status: Acute (2) AIDS (acquired immune deficiency syndrome) Current Visit: Yes Status: Chronic (3) Asthma Current Visit: Yes Status: Chronic Qualifiers: Asthma severity: mild Asthma persistence: unspecified Asthma complication type: uncomplicated Qualified Code(s): J45.909 - Unspecified asthma, uncomplicated (4) BPH (benign prostatic hypertrophy) Current Visit: Yes Status: Chronic Qualifiers: Lower urinary tract symptom presence: symptoms absent Qualified Code(s): N40.0 - Benign prostatic hyperplasia without lower urinary tract symptoms (5) Cirrhosis of liver Current Visit: Yes Status: Chronic Qualifiers: Hepatic cirrhosis type: unspecified hepatic cirrhosis Ascites presence: without ascites Qualified Code(s): K74.60 - Unspecified cirrhosis of liver (6) Hypercholesterolemia Current Visit: Yes Status: Chronic (7) Hypertension Current Visit: Yes Status: Chronic Qualifiers: Hypertension type: essential hypertension Qualified Code(s): I10 - Essential (primary) hypertension (8) Nicotine dependence Current Visit: Yes Status: Chronic Qualifiers: Nicotine product type: cigarettes Substance use status: uncomplicated Qualified Code(s): F17.210 - Nicotine dependence, cigarettes, uncomplicated (9) Substance induced mood disorder Current Visit: Yes Status: Acute (10) Herpes Current Visit: Yes Status: Chronic (11) Schizophrenia Current Visit: Yes Status: Suspected Qualifiers: Schizophrenia type: unspecified Qualified Code(s): F20.9 - Schizophrenia, unspecified (12) Mood disorder Current Visit: Yes Status: Suspected - Initial Treatment Plan Initial Treatment Plan: Psychoeducation provided. Detoxification in progress. Seroquel 100mg qhs ordered. Will increase seroquel to 200mg qhs depending if patient can tolerate current dose. Will not restart patient on topamax due to history of nonadherence to medication. Pt. agreeable with plan. Benefits and side effects discussed. Verbal consent given.
[2018-03-15] MEDS: valACYclovir HCL 500 MG TABLET (FP) PO SCH (22:08)
[2018-03-15] MEDS: THIAMINE HCL 100 MG TABLET (FP) PO SCH (22:09)
[2018-03-15] MEDS: QUEtiapine FUMARATE 100 MG TABLET (FP) PO SCH (22:09)
[2018-03-15] MEDS: HYDROCORTISONE 0.5% TOPICAL OINTMENT TUBE TP SCH (22:12)
[2018-03-16] MEDS: diazePAM 5 MG TABLET PO PRN (08:43)
[2018-03-16] MEDS: TAMSULOSIN HCL 0.4 MG CAP.ER.24H (FP) PO SCH (09:44)
[2018-03-16] MEDS: valACYclovir HCL 500 MG TABLET (FP) PO SCH ×2 (10:43→22:08)
[2018-03-16] MEDS: amLODIPine BESYLATE 10 MG TABLET (FP) PO SCH (10:43)
[2018-03-16] MEDS: BACITRACIN 0.9 GM PACKET TP SCH ×2 (10:43→22:08)
[2018-03-16] MEDS: ASPIRIN 81 MG CHEWABLE TABLETS PO SCH (10:43)
[2018-03-16] MEDS: HYDROCORTISONE 0.5% TOPICAL OINTMENT TUBE TP SCH ×2 (10:44→22:09)
[2018-03-16] MEDS: PRENATAL VITAMINS W/ FOLIC ACID TABLET (FP) PO SCH (10:45)
[2018-03-16] MEDS: diazePAM 5 MG TABLET PO SCH ×2 (10:45→22:08)
[2018-03-16] MEDS: NICOTINE 21 MG/24 HOURS TOPICAL PATCH TD SCH (10:45)
--- NOTE | 2018-03-16 16:19 | PN ---
[facility] CIWA - CIWA Score Nausea/Vomitin-No Nausea/No Vomiting Muscle Tremors: None Anxiety: 4-Mod. Anxious/Guarded Agitation: 2 Paroxysmal Sweats: 3 Orientation: 2-Disoriented Date<2 days Tacttile Disturbances: 2-Mild Itch/Numbness/Burn Auditory Disturbances: 0-None Visual Disturbances: 1-Very Mild Sensitivity Headache: 0-None Present CIWA-Ar Total Score: 14 S Progress Note (SOAP) Subjective: Sweating, Fatigue, Anxious. Objective: PATIENT A & O X 3, OBSERVED AMBULATING ON UNIT. NO ACUTE DISTRESS. 03/16/18 16:17 Vital Signs Temperature 98.4 F 03/16/18 13:12 Pulse Rate 100 H 03/16/18 13:12 Respiratory Rate 16 03/16/18 13:12 Blood Pressure 118/76 03/16/18 13:12 O2 Sat by Pulse Oximetry (%) Laboratory Tests 03/15/18 03/15/18 03/15/18 07:00 07:00 07:00 WBC 7.7 D RBC 4.70 Hgb 14.6 Hct 43.1 MCV 91.8 MCH 31.1 MCHC 33.9 RDW 15.3 Plt Count 254 MPV 8.7 Sodium 140 Potassium 3.9 Chloride 108 H Carbon Dioxide 22 D Anion Gap 10 BUN 21 H Creatinine 1.2 Creat Clearance w eGFR > 60 Random Glucose 100 Calcium 8.3 L Total Bilirubin 0.7 D AST 39 H D ALT 50 Alkaline Phosphatase 88 Total Protein 8.7 H Albumin 3.6 Urine Color Urine Appearance Urine pH Ur Specific [place] Urine Protein Urine Glucose (UA) Urine Ketones Urine Blood Urine Nitrite Urine Bilirubin Urine Urobilinogen Ur Leukocyte Esterase RPR Titer Nonreactive 03/15/18 08:30 WBC RBC Hgb Hct MCV MCH MCHC RDW Plt Count MPV Sodium Potassium Chloride Carbon Dioxide Anion Gap BUN Creatinine Creat Clearance w eGFR Random Glucose Calcium Total Bilirubin AST ALT Alkaline Phosphatase Total Protein Albumin Urine Color Ltyellow Urine Appearance Turbid Urine pH 7.0 Ur Specific [place] 1.014 Urine Protein Negative Urine Glucose (UA) Negative Urine Ketones Negative Urine Blood Negative Urine Nitrite Negative Urine Bilirubin Negative Urine Urobilinogen Negative Ur Leukocyte Esterase Negative RPR Titer LABS NOTED. Assessment: 03/16/18 16:17 WITHDRAWAL SYMPTOMS. Plan: CONTINUE DETOX.
[2018-03-16] MEDS: THIAMINE HCL 100 MG TABLET (FP) PO SCH (22:08)
[2018-03-16] MEDS: QUEtiapine FUMARATE 100 MG TABLET (FP) PO SCH (22:08)
[2018-03-17] MEDS: BACITRACIN 0.9 GM PACKET TP SCH ×2 (10:50→22:08)
[2018-03-17] MEDS: diazePAM 5 MG TABLET PO SCH ×2 (10:50→22:08)
[2018-03-17] MEDS: TAMSULOSIN HCL 0.4 MG CAP.ER.24H (FP) PO SCH (10:50)
[2018-03-17] MEDS: amLODIPine BESYLATE 10 MG TABLET (FP) PO SCH (10:50)
[2018-03-17] MEDS: ASPIRIN 81 MG CHEWABLE TABLETS PO SCH (10:50)
[2018-03-17] MEDS: PRENATAL VITAMINS W/ FOLIC ACID TABLET (FP) PO SCH (10:50)
[2018-03-17] MEDS: valACYclovir HCL 500 MG TABLET (FP) PO SCH ×2 (10:51→22:08)
[2018-03-17] MEDS: NICOTINE 21 MG/24 HOURS TOPICAL PATCH TD SCH (10:51)
[2018-03-17] MEDS: HYDROCORTISONE 0.5% TOPICAL OINTMENT TUBE TP SCH ×2 (11:56→22:09)
--- NOTE | 2018-03-17 16:13 | PN ---
BHS Progress Note (SOAP) Subjective: Sweating, Fatigue, Anxious. Objective: PATIENT A & O X 3, OBSERVED AMBULATING ON UNIT. NO ACUTE DISTRESS. 03/17/18 16:10 Vital Signs Temperature 97.6 F 03/17/18 13:37 Pulse Rate 91 H 03/17/18 13:37 Respiratory Rate 16 03/17/18 13:37 Blood Pressure 128/76 03/17/18 13:37 O2 Sat by Pulse Oximetry (%) Laboratory Tests 03/15/18 03/15/18 03/15/18 07:00 07:00 07:00 WBC 7.7 D RBC 4.70 Hgb 14.6 Hct 43.1 MCV 91.8 MCH 31.1 MCHC 33.9 RDW 15.3 Plt Count 254 MPV 8.7 Sodium 140 Potassium 3.9 Chloride 108 H Carbon Dioxide 22 D Anion Gap 10 BUN 21 H Creatinine 1.2 Creat Clearance w eGFR > 60 Random Glucose 100 Calcium 8.3 L Total Bilirubin 0.7 D AST 39 H D ALT 50 Alkaline Phosphatase 88 Total Protein 8.7 H Albumin 3.6 Urine Color Urine Appearance Urine pH Ur Specific [place] Urine Protein Urine Glucose (UA) Urine Ketones Urine Blood Urine Nitrite Urine Bilirubin Urine Urobilinogen Ur Leukocyte Esterase RPR Titer Nonreactive 03/15/18 08:30 WBC RBC Hgb Hct MCV MCH MCHC RDW Plt Count MPV Sodium Potassium Chloride Carbon Dioxide Anion Gap BUN Creatinine Creat Clearance w eGFR Random Glucose Calcium Total Bilirubin AST ALT Alkaline Phosphatase Total Protein Albumin Urine Color Ltyellow Urine Appearance Turbid Urine pH 7.0 Ur Specific [place] 1.014 Urine Protein Negative Urine Glucose (UA) Negative Urine Ketones Negative Urine Blood Negative Urine Nitrite Negative Urine Bilirubin Negative Urine Urobilinogen Negative Ur Leukocyte Esterase Negative RPR Titer LABS NOTED. Assessment: 03/17/18 16:11 WITHDRAWAL SYMPTOMS. Plan: CONTINUE DETOX. PATIENT SCHEDULED FOR DETOX TOMORROW.
[2018-03-17] MEDS: THIAMINE HCL 100 MG TABLET (FP) PO SCH (22:08)
[2018-03-17] MEDS: QUEtiapine FUMARATE 100 MG TABLET (FP) PO SCH (22:08)
[2018-03-18 09:39] VITALS: BP 133/88; PULSE 76; TEMP 97.6
[2018-03-18] MEDS ORDERED: diazePAM 5 MG TABLET PO SCH (10:00)
[2018-03-18] MEDS: ASPIRIN 81 MG CHEWABLE TABLETS PO SCH (10:10)
[2018-03-18] MEDS: valACYclovir HCL 500 MG TABLET (FP) PO SCH (10:10)
[2018-03-18] MEDS: TAMSULOSIN HCL 0.4 MG CAP.ER.24H (FP) PO SCH (10:10)
[2018-03-18] MEDS: BACITRACIN 0.9 GM PACKET TP SCH (10:10)
[2018-03-18] MEDS: amLODIPine BESYLATE 10 MG TABLET (FP) PO SCH (10:10)
[2018-03-18] MEDS: HYDROCORTISONE 0.5% TOPICAL OINTMENT TUBE TP SCH (10:11)
[2018-03-18] MEDS: NICOTINE 21 MG/24 HOURS TOPICAL PATCH TD SCH (10:12)
[2018-03-18] MEDS: PRENATAL VITAMINS W/ FOLIC ACID TABLET (FP) PO SCH (10:12)
--- NOTE | 2018-03-18 18:03 | PN ---
BHS Progress Note (SOAP) Subjective: Patient denies current Detox symptoms and reports that he feels well overall. Objective: PATIENT A & O X 3, OBSERVED AMBULATING ON UNIT. NO ACUTE DISTRESS. 03/18/18 18:02 Vital Signs Temperature 97.6 F 03/18/18 09:38 Pulse Rate 76 03/18/18 09:38 Respiratory Rate 18 03/18/18 09:38 Blood Pressure 133/88 03/18/18 09:38 O2 Sat by Pulse Oximetry (%) Laboratory Tests 03/15/18 03/15/18 03/15/18 07:00 07:00 07:00 WBC 7.7 D RBC 4.70 Hgb 14.6 Hct 43.1 MCV 91.8 MCH 31.1 MCHC 33.9 RDW 15.3 Plt Count 254 MPV 8.7 Sodium 140 Potassium 3.9 Chloride 108 H Carbon Dioxide 22 D Anion Gap 10 BUN 21 H Creatinine 1.2 Creat Clearance w eGFR > 60 Random Glucose 100 Calcium 8.3 L Total Bilirubin 0.7 D AST 39 H D ALT 50 Alkaline Phosphatase 88 Total Protein 8.7 H Albumin 3.6 Urine Color Urine Appearance Urine pH Ur Specific [place] Urine Protein Urine Glucose (UA) Urine Ketones Urine Blood Urine Nitrite Urine Bilirubin Urine Urobilinogen Ur Leukocyte Esterase RPR Titer Nonreactive 03/15/18 08:30 WBC RBC Hgb Hct MCV MCH MCHC RDW Plt Count MPV Sodium Potassium Chloride Carbon Dioxide Anion Gap BUN Creatinine Creat Clearance w eGFR Random Glucose Calcium Total Bilirubin AST ALT Alkaline Phosphatase Total Protein Albumin Urine Color Ltyellow Urine Appearance Turbid Urine pH 7.0 Ur Specific [place] 1.014 Urine Protein Negative Urine Glucose (UA) Negative Urine Ketones Negative Urine Blood Negative Urine Nitrite Negative Urine Bilirubin Negative Urine Urobilinogen Negative Ur Leukocyte Esterase Negative RPR Titer LABS NOTED. Assessment: 03/18/18 18:03 COMPLETION OF DETOX REGIMEN. Plan: PATIENT SCHEDULED FOR DISCHARGE FROM DETOX UNIT TODAY.
--- NOTE | 2018-03-18 18:08 | DS ---
[facility] Detox Discharge Summary Admission Date: 03/14/18 Discharge Date: 03/18/18 - History Present History: Alcohol Dependence Additional Comments: PATIENT GOING TO [facility] ([place] FOR AFTERCARE. PATIENT ADVISED TO FOLLOW-UP WITH GROUNDING ENGINEER DR. MULLEN ([facility] AFTER DISCHARGE FROM REHAB FOR GENERAL MEDICAL ASSESSMENT. PATIENT WAS DISCHARGED FROM DETOX UNIT IN STABLE MEDICAL CONDITION. Pertinent Past History: Asthma, Hep C, HIV, HTN, Hypercholesterolemia, History of Genital Herpes, Nicotine Dependence, BPH, Liver Cirrhosis, Nicotine Dependence, Schizophrenia, Weight Loss, History of Anemia. - Physical Exam Results Vital Signs: Vital Signs Temperature 97.6 F 03/18/18 09:38 Pulse Rate 76 03/18/18 09:38 Respiratory Rate 18 03/18/18 09:38 Blood Pressure 133/88 03/18/18 09:38 O2 Sat by Pulse Oximetry (%) Pertinent Admission Physical Exam Findings: WITHDRAWAL SYMPTOMS. Laboratory Tests 03/15/18 03/15/18 03/15/18 07:00 07:00 07:00 WBC 7.7 D RBC 4.70 Hgb 14.6 Hct 43.1 MCV 91.8 MCH 31.1 MCHC 33.9 RDW 15.3 Plt Count 254 MPV 8.7 Sodium 140 Potassium 3.9 Chloride 108 H Carbon Dioxide 22 D Anion Gap 10 BUN 21 H Creatinine 1.2 Creat Clearance w eGFR > 60 Random Glucose 100 Calcium 8.3 L Total Bilirubin 0.7 D AST 39 H D ALT 50 Alkaline Phosphatase 88 Total Protein 8.7 H Albumin 3.6 Urine Color Urine Appearance Urine pH Ur Specific [place] Urine Protein Urine Glucose (UA) Urine Ketones Urine Blood Urine Nitrite Urine Bilirubin Urine Urobilinogen Ur Leukocyte Esterase RPR Titer Nonreactive 03/15/18 08:30 WBC RBC Hgb Hct MCV MCH MCHC RDW Plt Count MPV Sodium Potassium Chloride Carbon Dioxide Anion Gap BUN Creatinine Creat Clearance w eGFR Random Glucose Calcium Total Bilirubin AST ALT Alkaline Phosphatase Total Protein Albumin Urine Color Ltyellow Urine Appearance Turbid Urine pH 7.0 Ur Specific [place] 1.014 Urine Protein Negative Urine Glucose (UA) Negative Urine Ketones Negative Urine Blood Negative Urine Nitrite Negative Urine Bilirubin Negative Urine Urobilinogen Negative Ur Leukocyte Esterase Negative RPR Titer LABS NOTED. - Treatment Hospital Course: Detox Protocol Followed, Detoxed Safely, Responded well, Discharged Condition Good, Rehab Referral Accepted Patient has Accepted a Rehab Referral to: [facility] ([place] - Medication Discharge Medications: Ambulatory Orders Elviteg/Cob/Emtri/Tenof Alafen [Genvoya (Non-Formulary)] 1 each PO DAILY #30 tablet 10/31/17 Fluticasone/Salmeterol [Advair 250-50 Diskus] 1 each IH DAILY 12/23/17 Albuterol Sulfate Inhaler - [Ventolin HFA Inhaler -] 2 puff IH Q4H PRN #1 inhaler 12/28/17 Amlodipine Besylate [Norvasc -] 10 mg PO DAILY #30 tablet 12/28/17 Aspirin 81 mg PO DAILY #30 tab.chew 12/28/17 Divalproex [Depakote -] 250 mg PO DAILY #30 tablet.ec 12/28/17 Quetiapine Fumarate [Seroquel] 100 mg PO HS #30 tablet 12/28/17 Tamsulosin HCl [Flomax -] 0.4 mg PO DAILY #30 capsule 12/28/17 Valacyclovir HCl [Valtrex -] 500 mg PO DAILY #30 tablet 12/28/17 Albuterol Sulfate Inhaler - [Ventolin HFA Inhaler -] 2 puff IH Q4H PRN #1 inhaler 02/18/18 Amlodipine Besylate [Norvasc -] 10 mg PO DAILY #30 tablet 02/18/18 Aspirin Coated [Ecotrin -] 81 mg PO DAILY #30 tablet.ec 02/18/18 Tamsulosin HCl [Flomax -] 0.4 mg PO DAILY@0830 #30 cap.er.24h 02/18/18 Valacyclovir HCl [Valtrex -] 500 mg PO DAILY #10 tablet 02/18/18 Bacitracin - [Bacitracin Topical Ointment -] 1 applic TP DAILY #1 tube 03/18/18 Hydrocortisone 0.5% Cream [Hytone 0.5% Cream -] 1 applic TP DAILY #1 tube Valacyclovir HCl [Valtrex] 1,000 mg PO BID 3 Days #6 tablet 03/18/18 - Diagnosis (1) Alcohol dependence with uncomplicated withdrawal Status: Acute (2) AIDS (acquired immune deficiency syndrome) Status: Chronic (3) Asthma Status: Chronic Qualifiers: Asthma severity: mild Asthma persistence: unspecified Asthma complication type: uncomplicated Qualified Code(s): J45.909 - Unspecified asthma, uncomplicated (4) BPH (benign prostatic hypertrophy) Status: Chronic Qualifiers: Lower urinary tract symptom presence: symptoms absent Qualified Code(s): N40.0 - Benign prostatic hyperplasia without lower urinary tract symptoms (5) Cirrhosis of liver Status: Chronic Qualifiers: Hepatic cirrhosis type: unspecified hepatic cirrhosis Ascites presence: without ascites Qualified Code(s): K74.60 - Unspecified cirrhosis of liver (6) Hypercholesterolemia Status: Chronic (7) Hypertension Status: Chronic Qualifiers: Hypertension type: essential hypertension Qualified Code(s): I10 - Essential (primary) hypertension (8) Nicotine dependence Status: Chronic Qualifiers: Nicotine product type: cigarettes Substance use status: uncomplicated Qualified Code(s): F17.210 - Nicotine dependence, cigarettes, uncomplicated (9) Substance induced mood disorder Status: Acute (10) Substance-induced sleep disorder Status: Suspected (11) Anxiety Status: Suspected (12) Depression Status: Suspected Qualifiers: Depression Type: unspecified Qualified Code(s): F32.9 - Major depressive disorder, single episode, unspecified (13) Hepatitis C Status: Resolved Qualifiers: Viral hepatitis chronicity: chronic Hepatic coma status: without hepatic coma Qualified Code(s): B18.2 - Chronic viral hepatitis C (14) Genital herpes Status: Acute Qualifiers: Herpes simplex infection site: penis Qualified Code(s): A60.01 - Herpesviral infection of penis (15) Insomnia Status: Acute Qualifiers: Insomnia type: primary Qualified Code(s): F51.01 - Primary insomnia (16) HIV (human immunodeficiency virus infection) Status: Chronic (17) History of herpes genitalis Status: Chronic (18) Weight loss Status: Chronic (19) Anemia Status: Suspected Qualifiers: Anemia type: unspecified type Qualified Code(s): D64.9 - Anemia, unspecified (20) Mood disorder Status: Suspected (21) Schizophrenia Status: Suspected Qualifiers: Schizophrenia type: unspecified Qualified Code(s): F20.9 - Schizophrenia, unspecified - AMA Did Patient Leave Against Medical Advice: No
== END 2018-03-18 10:15 | disposition home or self-care (01) | DRG 775 ==
LOC: YASAS 22:41 → Y3N 23:50
PROVIDERS: ADMIT Family Medicine Addiction Medicine; ATTEND Family Medicine Addiction Medicine
PROC: HZ2ZZZZ Detoxification Services for Substance Abuse Treatment (ICD-10-PCS; principal; 2018-03-14)
DX: F10.230 Alcohol dependence with withdrawal, uncomplicated (principal); F17.210 Nicotine dependence, cigarettes, uncomplicated; F19.24 Other psychoactive substance dependence with psychoactive substance-induced mood disorder; F19.282 Other psychoactive substance dependence with psychoactive substance-induced sleep disorder; F39 Unspecified mood [affective] disorder; F31.9 Bipolar disorder, unspecified; F20.9 Schizophrenia, unspecified; F41.9 Anxiety disorder, unspecified; F32.9 Major depressive disorder, single episode, unspecified; I10 Essential (primary) hypertension; J45.909 Unspecified asthma, uncomplicated; N40.0 Benign prostatic hyperplasia without lower urinary tract symptoms; K74.60 Unspecified cirrhosis of liver; E78.00 Pure hypercholesterolemia, unspecified; A60.00 Herpesviral infection of urogenital system, unspecified; B20 Human immunodeficiency virus [HIV] disease; R63.4 Abnormal weight loss; Z68.24 Body mass index [BMI] 24.0-24.9, adult
CPT/HCPCS: 36415; 80053; 81003; 85027; 86593; 93005; 93010

== ENCOUNTER 2018-05-26 15:42 | Inpatient (IN) | payer OTHER ==
[2018-05-26 16:57] VITALS: BMI 23.5
[2018-05-26] MEDS ORDERED: MELATONIN 5 MG TABLETS PO PRN (22:00)
--- NOTE | 2018-05-26 22:42 | HP ---
CIWA Score - CIWA Score Nausea/Vomitin-No Nausea/No Vomiting Muscle Tremors: 3 Anxiety: 4-Mod. Anxious/Guarded Agitation: 4-Moderately Restless Paroxysmal Sweats: 3 Orientation: 3-Disoriented Date>2 days Tacttile Disturbances: 3-Moderate Itch/Numb/Burn Auditory Disturbances: 0-None Visual Disturbances: 0-None Headache: 0-None Present CIWA-Ar Total Score: 20 Admission ROS S - HPI Chief Complaint: C/O WITHDRAWAL SX'. WOLUD LIKE DETOX FROM ALCOHOL Allergies/Adverse Reactions: Allergies Allergy/AdvReac Type Severity Reaction Status Date / Time chlordiazepoxide HCl Allergy Severe Rash Verified 05/26/18 18:30 [From Librium] History of Present Illness: 58 Y.O. MALE WITH ALCOHOLISM AND COCAINE DEPENDENCE HERE FOR DETOX. CLIENT WAS JUST DC ON 04/26/2018. REPORT RELAPSING IMMEDIATELY AFTER DC. C/O WWITHDRAWAL SX' S NOTED ON CIWA TO INCLUDE DIARRHE. HE ALSO COMPLAINF OF AN INFECTION ON HIS LEFT FOOT THAT HAS BEEN THE FOR ABOUT A WEEK. DENIES HX/O SEIZURES, AVH, . PRESVIOUS BLACK OUT AND SUICIDE ATTEMPT IN THE PAST. PRESENTLY DENIES SUCH THOUGHTS AT THIS TIME. LONGEST SOBRIETY 5 YEARS. SELF REFERRED, PMHX: AIDS, BPH, HTN, ASTHMA DOES NOT HAVE HIV MEDICATIONS. CLIENT IS AWARE HE WILL NOT BE RECEIVING ANY ON THIS ADMISSION. CLIENT VERBALIZED UNDERSTANDING AND AGREES TO BE ADMITTED PSYCH: MANIC DEPRESSIVE, ANXIETY, MOOD D/O, SCHIZOPHRENIA Exam Limitations: No Limitations - Ebola screening Have you traveled outside of the country in the last 21 days: No Have you been sick,other than usual withdrawal symptoms: No Do you have a fever: No - Review of Systems Constitutional: Chills, Loss of Appetite, Malaise, Night Sweats, Changes in sleep, Unintentional Wgt. Loss EENT: reports: No Symptoms Reported Respiratory: reports: Shortness of Breath (R/T ASTHMA) Cardiac: reports: No Symptoms Reported GI: reports: Diarrhea, Poor Appetite, Poor Fluid Intake, Vomiting : reports: Other (BPH HARD TIME INITIATING STREAM) Musculoskeletal: reports: Back Pain (CHRONIC) Integumentary: reports: Other (REDNESS WITH SCABS TO BLE) Neuro: reports: Headache, Other (BLACK OUTS) Endocrine: reports: No Symptoms Reported Hematology: reports: No Symptoms Reported Psychiatric: reports: Anxious, Depressed Other Systems: Reviewed and Negative Patient History - Patient Medical History Hx Anemia: Yes Hx Asthma: Yes (On Albuterol - Not compliant) Hx Chronic Obstructive Pulmonary Disease (COPD): No Hx Cancer: No Hx Cardiac Disorders: No Hx Congestive Heart Failure: No Hx Hypertension: Yes (Not complaint with Norvasc) Hx Hypercholesterolemia: Yes (No med.) Hx Pacemaker: No HX Cerebrovascular Accident: No Hx Seizures: No Hx Dementia: No Hx Diabetes: No Hx Gastrointestinal Disorders: No Hx Liver Disease: Yes (CIRRHOSIS) Hx Genitourinary Disorders: Yes (BPH) Hx Sexually Transmitted Disorders: Yes (Herpes- on Valtrex ) Hx Renal Disease (ESRD): No Hx Thyroid Disease: No Hx Human Immunodeficiency Virus (HIV): Yes (Genvoya; non compliant) Hx Hepatitis C: Yes (Treated in 2013; Completed, Uncertain if Cured.) Hx Depression: Yes Hx Suicide Attempt: Yes (2016 CUTTING WRIST) Hx Bipolar Disorder: Yes (Meds., Non-compliant ) Hx Schizophrenia: Yes Other Medical History: DENIES - Patient Surgical History Past Surgical History: Yes Hx Neurologic Surgery: No Hx Cataract Extraction: No Hx Cardiac Surgery: No Hx Lung Surgery: No Hx Breast Surgery: No Hx Breast Biopsy: No Hx Abdominal Surgery: No Hx Appendectomy: No Hx Cholecystectomy: No Hx Genitourinary Surgery: No Hx Section: No Hx Orthopedic Surgery: No Other Surgical History: RIGHT WRIST SX in 1983 for a laceration; left wrist laceration 1977 Anesthesia Reaction: No - PPD History Documented Results: Negative w/proof Implanted On Prior [facility] Admission?: Yes Date: 02/14/18 Results: 0 mm PPD to be Administered?: No - Smoking Cessation Smoking history: Current every day smoker Have you smoked in the past 12 months: Yes Aproximately how many cigarettes per day: 20 Cigars Per Day: 0 Hx Chewing Tobacco Use: No Initiated information on smoking cessation: Yes 'Breaking Loose' booklet given: 05/26/18 - Substance & Tx. History Hx Alcohol Use: Yes Hx Substance Use: Yes Substance Use Type: Alcohol, Cocaine Hx Substance Use Treatment: Yes ([facility]) - Substances Abused Alcohol Route: Oral Frequency: Daily Amount used: LIQUOR-2 PINTS, BEER- 4 (40oz) Age of first use: 17 Date of Last Use: 05/26/18 Cocaine Route: Smoking Frequency: Daily Amount used: $300 Age of first use: 34 Date of Last Use: 05/25/18 Family Disease History - Family Disease History Family Disease History: Diabetes: Mother (HTN, .), Respiratory: Sister ( Asthma), Other: Father (addiction to heroin,), Mother Admission Physical Exam [facility] - Vital Signs Vital Signs: Vital Signs - 24 hr 05/26/18 16:55 Temperature 98.2 F Pulse Rate 67 Respiratory 23 Rate Blood Pressure 141/84 - Physical General Appearance: Yes: Disheveled, Mild Distress, Alcohol on Breath, Tremorous , Anxious HEENTM: Yes: EOMI, Normocephalic, Normal Voice, ROB, Pharynx Normal Respiratory: Yes: Chest Non-Tender, Lungs Clear, Normal Breath Sounds, No Respiratory Distress, No Accessory Muscle Use Neck: Yes: No masses,lesions,Nodules, Supple, Trachea in good position Breast: Yes: Breast Exam Deferred Cardiology: Yes: Regular Rhythm, Regular Rate, S1, S2 Abdominal: Yes: Normal Bowel Sounds, Non Tender, Soft Genitourinary: Yes: Hesitency (HX/O BPH) Back: Yes: Normal Inspection Musculoskeletal: Yes: full range of Motion, Gait Steady Extremities: Yes: Normal Capillary Refill, Normal Range of Motion, Tremors, Erythema (OF LEFT FOOT/ CELLULITIS WITH NECTROTIC LIKE TISSUE/SCAB) Neurological: Yes: Fully Oriented, Alert, Motor Strength 5/5, Depressed Affect Integumentary: Yes: Dry, Warm, Erythema (CELLULITIS OF LLE), Other (CELLULITIS OF LEFT FOOT) Lymphatic: Yes: Within Normal Limits - Diagnostic (1) Chronic back pain Current Visit: Yes Status: Chronic Qualifiers: Back pain location: low back pain (2) Alcohol dependence with uncomplicated withdrawal Current Visit: Yes Status: Acute (3) Cocaine dependence Current Visit: Yes Status: Chronic Qualifiers: Substance use status: uncomplicated Qualified Code(s): F14.20 - Cocaine dependence, uncomplicated (4) Nicotine dependence Current Visit: Yes Status: Chronic Qualifiers: Nicotine product type: cigarettes Substance use status: in withdrawal Qualified Code(s): F17.213 - Nicotine dependence, cigarettes, with withdrawal (5) Rash of face Current Visit: Yes Status: Chronic (6) Substance induced mood disorder Current Visit: Yes Status: Chronic (7) Substance-induced sleep disorder Current Visit: Yes Status: Chronic (8) AIDS (acquired immune deficiency syndrome) Current Visit: Yes Status: Chronic (9) Asthma Current Visit: Yes Status: Chronic Qualifiers: Asthma severity: mild Asthma persistence: unspecified Asthma complication type: uncomplicated Qualified Code(s): J45.909 - Unspecified asthma, uncomplicated (10) BPH (benign prostatic hypertrophy) Current Visit: Yes Status: Chronic Qualifiers: Lower urinary tract symptom presence: symptoms absent Qualified Code(s): N40.0 - Benign prostatic hyperplasia without lower urinary tract symptoms (11) Bipolar 1 disorder Current Visit: Yes Status: Chronic (12) Cirrhosis of liver Current Visit: Yes Status: Chronic Qualifiers: Hepatic cirrhosis type: unspecified hepatic cirrhosis Ascites presence: without ascites Qualified Code(s): K74.60 - Unspecified cirrhosis of liver (13) Cocaine dependence Current Visit: Yes Status: Chronic Qualifiers: Substance use status: uncomplicated Qualified Code(s): F14.20 - Cocaine dependence, uncomplicated (14) History of herpes genitalis Current Visit: Yes Status: Chronic (15) Hypercholesterolemia Current Visit: Yes Status: Chronic (16) Hypertension Current Visit: Yes Status: Chronic Qualifiers: Hypertension type: essential hypertension Qualified Code(s): I10 - Essential (primary) hypertension (17) Schizoaffective disorder Current Visit: Yes Status: Chronic Qualifiers: Schizoaffective disorder type: bipolar Qualified Code(s): F25.0 - Schizoaffective disorder, bipolar type Comment: As per self-report and old records.No compliance with OPD care. (18) Weight loss Current Visit: Yes Status: Chronic (19) Mood disorder Current Visit: Yes Status: Suspected (20) Schizophrenia Current Visit: Yes Status: Suspected Qualifiers: Schizophrenia type: unspecified Qualified Code(s): F20.9 - Schizophrenia, unspecified (21) Hepatitis C virus infection cured after antiviral drug therapy Current Visit: No Status: Resolved (22) Cellulitis of left foot Current Visit: Yes Status: Acute (23) Psoriasiform seborrheic dermatitis Current Visit: Yes Status: Chronic Cleared for Admission [facility] - Detox or Rehab [facility] Level of Care: Medically Managed Detox Regimen/Protocol: Valium Claeared for Rehab Admission: No [facility] Breath Alcohol Content Breath Alcohol Content: 0.030 Urine Drug Screen - Results Drug Screen Negative: No Urine Drug Screen Results: THC-Marijuana, ANGIE-Cocaine, BZO-Benzodiazepines
[2018-05-26] MEDS ORDERED: ALBUTEROL SO4 8 GM HFA INHALER IH PRN (22:47)
[2018-05-26] MEDS ORDERED: MENTHOL/PHENOL 1 EACH UD MM PRN (23:04)
[2018-05-26] MEDS ORDERED: guaiFENesin/D-METHORPHAN HB 10 ML UNIT-DOSE CUPS PO PRN (23:04)
[2018-05-26] MEDS ORDERED: MAGNESIUM HYDROX 2400MG/30ML ORAL SUSPENSION 30 ML CUP PO PRN (23:04)
[2018-05-26] MEDS ORDERED: MAG HYDROX/AL HYDROX/SIMETH 30 ML UNIT-DOSE CUP PO PRN (23:04)
[2018-05-26] MEDS ORDERED: MAGNESIUM CITRATE 300 ML BOTTLE PO PRN (23:04)
[2018-05-26] MEDS ORDERED: IBUPROFEN 400 MG TABLET (FP) PO PRN (23:04)
[2018-05-26] MEDS ORDERED: P-EPHED 60MG/TRIPROLIDI 2.5MG TABLET PO PRN (23:04)
[2018-05-26] MEDS ORDERED: LOPERAMIDE HCL 2 MG CAPSULE PO PRN (23:04)
[2018-05-26] MEDS ORDERED: ACETAMINOPHEN 325 MG TABLET (FP) PO PRN (23:04)
[2018-05-26] MEDS ORDERED: NICOTINE POLACRILEX 2 MG GUM BC PRN (23:04)
[2018-05-26] MEDS ORDERED: diazePAM 5 MG TABLET PO PRN (23:06)
[2018-05-26] MEDS ORDERED: diazePAM 5 MG TABLET PO ONE (23:06)
[2018-05-26] MEDS ORDERED: cloNIDine HCL 0.1 MG TABLET PO ONE (23:09)
[2018-05-26] MEDS ORDERED: HYDROCORTISONE 0.5% TOPICAL OINTMENT TUBE TP PRN (23:12)
[2018-05-27] MEDS: CEPHALEXIN MONOHYDRATE 500 MG CAPSULE (UD) PO SCH ×5 (01:23→23:30)
[2018-05-27] MEDS: diazePAM 5 MG TABLET PO SCH ×4 (05:24→22:17)
[2018-05-27] MEDS ORDERED: CEPHALEXIN MONOHYDRATE 500 MG CAPSULE (UD) PO SCH (06:00)
[2018-05-27 09:57] LABS: URINE APPEARANCE SLCLOUDY; URINE BILIRUBIN NEGATIVE (<2.0 mg/dL); URINE COLOR YELLOW; URINE GLUCOSE (UA) NEGATIVE (NEGATIVE); URINE KETONE NEGATIVE (NEGATIVE); URINE LEUK ESTERASE NEGATIVE (NEGATIVE); URINE NITRITE NEGATIVE (NEGATIVE)
[2018-05-27 09:58] LABS: HEMATOCRIT 36.2 % (35.4-49); HEMOGLOBIN 12.6 GM/dL (11.7-16.9); MCH 30.9 pg (25.7-33.7); MCHC 34.7 g/dl (32.0-35.9); MEAN CELL VOLUME 89.2 fl (80-96); MEAN PLT VOLUME 8.6 fl (7.5-11.1); PLATELET COUNT 277 K/MM3 (134-434); RBC 4.06 M/mm3 (4.00-5.60); RDW 13.9 % (11.9-15.9); WHITE BLOOD COUNT 7.7 K/mm3 (4.0-10.0)
[2018-05-27 10:07] LABS: URINE PROTEIN 1+ (NEGATIVE)
[2018-05-27] MEDS: ASPIRIN COATED 81 MG TABLET.EC PO SCH (10:09)
[2018-05-27] MEDS: valACYclovir HCL 500 MG TABLET (FP) PO SCH ×2 (10:09→22:17)
[2018-05-27] MEDS: amLODIPine BESYLATE 10 MG TABLET (FP) PO SCH (10:09)
[2018-05-27 10:10] LABS: EPI CELLS RARE /HPF (FEW); URINE HYALINE CAST 1 /lpf; URINE MUCUS RARE
[2018-05-27] MEDS: NICOTINE 21 MG/24 HOURS TOPICAL PATCH TD SCH (10:10)
[2018-05-27] MEDS: TAMSULOSIN HCL 0.4 MG CAP.ER.24H (FP) PO SCH (10:10)
[2018-05-27] MEDS: PRENATAL VITAMINS W/ FOLIC ACID TABLET (FP) PO SCH (10:11)
[2018-05-27 10:32] LABS: ALBUMIN 2.6 g/dl (3.4-5.0); ALK PHOS 84 U/L (45-117); ANION GAP 11 MMOL/L (8-16); BILIRUBIN,TOTAL 0.1 mg/dL (0.2-1.0); BLOOD UREA NITROGEN 19 mg/dL (7-18); CALCIUM 7.6 mg/dL (8.5-10.1); CHLORIDE 109 mmol/L (98-107); CO2 24 mmol/L (21-32); CREATININE 0.8 mg/dL (0.7-1.3); GLUCOSE,RANDOM 101 mg/dL (74-106); POTASSIUM 3.5 mmol/L (3.5-5.1); SGOT/AST 11 U/L (15-37); SGPT/ALT 21 U/L (12-78); SODIUM 144 mmol/L (136-145); TOT PROT 6.4 g/dl (6.4-8.2)
--- NOTE | 2018-05-27 11:58 | CONSULT ---
[facility] Psychiatric Consult - Data Date of interview: 05/27/18 Admission source: [facility] Identifying data: This is one of multiple admissions to [facility] for this 58 y/ o male,now at [address] [place] [address],self-referred for detoxification (cocaine/crack and alcohol dependence).Patient is single without children,unemployed,domiciled (O setting) and [facility]. Substance Abuse History: Discussed with the patient in this interview.Mr Up admits to smoking one pack of cigarettes/day and endorses an extended history of alcohol (1-2 pints of liquor + beer daily) and more than 20 years of crack abuse.Details in current [facility] report as follows : Smoking history: Current every day smoker. Have you smoked in the past 12 months: Yes. Aproximately how many cigarettes per day: 20. Cigars Per Day: 0. Hx Chewing Tobacco Use: No. Initiated information on smoking cessation: Yes. 'Breaking Loose' booklet given : 05/26/18. - Substance & Tx. History. Hx Alcohol Use: Yes. Hx Substance Use : Yes. Substance Use Type: Alcohol, Cocaine. Hx Substance Use Treatment: Yes ( [facility]). - Substances Abused. Alcohol. Route: Oral. Frequency: Daily. Amount used: LIQUOR-2 PINTS, BEER- 4 (40oz). Age of first use: 17. Date of Last Use: 05/26/18. Cocaine. Route: Smoking. Frequency: Daily. Amount used: $300. Age of first use: 34. Date of Last Use: 05/25/18 Medical History: HIV infection since 1985 (on medications),herpes genitalis, bronchial asthma,hypertension,cirrhosis of liver,hepatitis C and BPH (benign prostatic hyperplasia).Past history of treatment for gonorrhea. Psychiatric History: Discharged from [facility] three weeks ago (self- report).History of multiple psychiatric hospitalizations ([facility]).Diagnosed with Bipolar Disorder and ADHD (age 9). Patient is maintained on seroquel 300 mg/hs.Mr Up sees a psychiatrist at [facility] in the [place].Chronically non- adherent to OPD care.Patient presents with a history of multiple suicide attempts via various means which includes wrist-cutting (2011),overdose with pills and deliberate confrontations with [employer]. Physical/Sexual Abuse/Trauma History: Patient declines to discuss this domain. Additional Comment: Urine Drug Screen Results: THC-Marijuana, ANGIE-Cocaine, BZO- Benzodiazepines.Noted. Mental Status Exam - Mental Status Exam Alert and Oriented to: Time, Place, Person Cognitive Function: Grossly Intact Patient Appearance: Unkempt, Disheveled (tattoos on both arms) Mood: Nervous, Withdrawn, Anxious Affect: Mood Congruent, Constricted Patient Behavior: Fatigued, Cooperative Speech Pattern: Clear, Appropriate Voice Loudness: Normal Thought Process: Goal Oriented Thought Disorder: Not Present Hallucinations: Denies Suicidal Ideation: Denies Homicidal Ideation: Denies Insight/Judgement: Poor Sleep: Poorly, Difficulty falling asleep Appetite: Fair Muscle strength/Tone: Normal Gait/Station: Normal Psychiatric Findings - Problem List ([place] 1, 2,3) (1) Alcohol dependence with uncomplicated withdrawal Current Visit: Yes Status: Acute (2) Cocaine dependence Current Visit: Yes Status: Acute Qualifiers: Substance use status: uncomplicated Qualified Code(s): F14.20 - Cocaine dependence, uncomplicated (3) Marijuana dependence Current Visit: Yes Status: Acute (4) Nicotine dependence Current Visit: Yes Status: Chronic Qualifiers: Nicotine product type: cigarettes Substance use status: in withdrawal Qualified Code(s): F17.213 - Nicotine dependence, cigarettes, with withdrawal (5) Substance induced mood disorder Current Visit: Yes Status: Acute (6) Schizoaffective disorder Current Visit: Yes Status: Chronic Qualifiers: Schizoaffective disorder type: bipolar Qualified Code(s): F25.0 - Schizoaffective disorder, bipolar type Comment: As per self-report and old records.No compliance with OPD care. (7) Insomnia Current Visit: Yes Status: Acute Qualifiers: Insomnia type: primary Qualified Code(s): F51.01 - Primary insomnia (8) Non compliance w medication regimen Current Visit: Yes Status: Chronic Comment: Chronically non-aherent to psychiatric OPD care. - Initial Treatment Plan Initial Treatment Plan: Psychoeducation and support.Group therapy.Detoxification in progress.Will start seroquel at the dose of 200 mg po hs (titration to 300 mg to follow in next 24-48 hours if no oversedation).Side effects/benefits discussed with the patient.Mr Up agrees to this plan of care.Observation.
[2018-05-27] MEDS ORDERED: AMOX TR/POT CLAV 875MG/125MG TABLETS (FP) PO SCH (17:30)
--- NOTE | 2018-05-27 18:02 | PN ---
[facility] CIWA - CIWA Score Nausea/Vomitin-Mild Nausea/No Vomiting Muscle Tremors: 1-None Visible, but [place] Anxiety: 1-Mildly Anxious Agitation: 1-Slight > Activity Paroxysmal Sweats: 1-Minimal Palms Moist Orientation: 0-Oriented Tacttile Disturbances: 0-None Auditory Disturbances: 0-None Visual Disturbances: 0-None Headache: 0-None Present CIWA-Ar Total Score: 5 S Progress Note (SOAP) Subjective: pt c/o of blister of foot that is now with a scab and with redness around the area. With some pain- pt was started on antibiotics at admission Obj: Vital Signs - 24 hr 05/26/18 05/27/18 05/27/18 23:59 00:30 03:30 Temperature 97.9 F Pulse Rate 63 Respiratory 18 18 18 Rate Blood Pressure 164/101 05/27/18 05/27/18 05/27/18 06:24 11:13 13:40 Temperature 97.3 F L 96.7 F L 96.2 F L Pulse Rate 54 L 70 66 Respiratory 16 18 20 Rate Blood Pressure 136/80 132/78 149/95 Laboratory Tests 05/26/18 05/27/18 05/27/18 09:40 07:40 07:40 WBC 7.7 RBC 4.06 Hgb 12.6 Hct 36.2 D MCV 89.2 MCH 30.9 MCHC 34.7 RDW 13.9 Plt Count 277 MPV 8.6 Sodium 144 Potassium 3.5 Chloride 109 H Carbon Dioxide 24 Anion Gap 11 BUN 19 H Creatinine 0.8 Creat Clearance w eGFR > 60 Random Glucose 101 Calcium 7.6 L Total Bilirubin 0.1 L AST 11 L D ALT 21 D Alkaline Phosphatase 84 Total Protein 6.4 Albumin 2.6 L Urine Color Yellow Urine Appearance Slcloudy Urine pH 6.0 Ur Specific [place] 1.019 Urine Protein 1+ H Urine Glucose (UA) Negative Urine Ketones Negative Urine Blood Negative Urine Nitrite Negative Urine Bilirubin Negative Urine Urobilinogen 2.0 Ur Leukocyte Esterase Negative Urine WBC (Auto) 2 Urine RBC (Auto) 1 Ur Epithelial Cells Rare Hyaline Casts 1 Urine Mucus Rare RPR Titer 05/27/18 07:40 WBC RBC Hgb Hct MCV MCH MCHC RDW Plt Count MPV Sodium Potassium Chloride Carbon Dioxide Anion Gap BUN Creatinine Creat Clearance w eGFR Random Glucose Calcium Total Bilirubin AST ALT Alkaline Phosphatase Total Protein Albumin Urine Color Urine Appearance Urine pH Ur Specific [place] Urine Protein Urine Glucose (UA) Urine Ketones Urine Blood Urine Nitrite Urine Bilirubin Urine Urobilinogen Ur Leukocyte Esterase Urine WBC (Auto) Urine RBC (Auto) Ur Epithelial Cells Hyaline Casts Urine Mucus RPR Titer Nonreactive Active Medications Acetaminophen (Tylenol -) 650 mg PO Q4H PRN PRN Reason: FEVER Al Hydroxide/Mg Hydroxide (Mylanta Oral Suspension -) 30 ml PO Q6H PRN PRN Reason: DYSPEPSIA Albuterol Sulfate (Ventolin Hfa Inhaler -) 2 puff IH Q4H PRN PRN Reason: ASTHMA Amlodipine Besylate (Norvasc -) 10 mg PO DAILY [facility] Last Admin: 05/27/18 10:09 Dose: 10 mg Aspirin (Ecotrin -) 81 mg PO DAILY [facility] Last Admin: 05/27/18 10:09 Dose: 81 mg Cephalexin HCl (Keflex -) 500 mg PO Q6HPO [facility] Stop: 06/03/18 00:29 Last Admin: 05/27/18 12:39 Dose: 500 mg Diazepam (Valium -) 10 mg PO Q4H PRN PRN Reason: WITHDRAWAL(CONT SUBST) Stop: 05/29/18 23:05 Last Admin: 05/27/18 10:10 Dose: 10 mg Diazepam (Valium -) 5 mg PO TID [facility] Stop: 05/27/18 22:01 Last Admin: 05/27/18 13:11 Dose: 5 mg Diazepam (Valium -) 5 mg PO BID [facility] Stop: 05/29/18 22:01 Diazepam (Valium -) 5 mg PO DAILY [facility] Stop: 05/30/18 10:01 Eucalyptus/Menthol/Phenol/Sorbitol (Cepastat Lozenge -) 1 each MM Q4H PRN PRN Reason: SORE THROAT Guaifenesin (Robitussin Dm -) 10 ml PO Q6H PRN PRN Reason: COUGH Hydrocortisone (Hytone 0.5% Ointment -) 1 applic TP Q6H PRN PRN Reason: facial rash Ibuprofen (Motrin -) 400 mg PO Q6H PRN PRN Reason: PAIN LEVEL 4-6 Loperamide HCl (Imodium -) 4 mg PO Q6H PRN PRN Reason: DIARRHEA Magnesium Citrate (Citroma -) 300 ml PO Q48H PRN PRN Reason: CONSTIPATION Magnesium Hydroxide (Milk Of Magnesia -) 30 ml PO DAILY PRN PRN Reason: CONSTIPATION Melatonin (Melatonin) 5 mg PO HS PRN PRN Reason: INSOMNIA Nicotine (Nicoderm Patch -) 21 mg TD DAILY [facility] Last Admin: 05/27/18 10:10 Dose: Not Given Nicotine Polacrilex (Nicorette Gum -) 2 mg BC Q2H PRN PRN Reason: NICOTINE REPLACEMENT RX Multivit/Folic Acid/Iron ( Vitamins (Sjr) -) 1 tab PO DAILY [facility] Last Admin: 05/27/18 10:11 Dose: 1 tab Pseudoephedrine/Triprolidine (Actifed -) 1 combo PO TID PRN PRN Reason: NASAL CONGESTION Quetiapine Fumarate (Seroquel -) 200 mg PO HS [facility] Tamsulosin HCl (Flomax -) 0.4 mg PO DAILY@0830 [facility] Last Admin: 05/27/18 10:10 Dose: 0.4 mg Thiamine HCl (Vitamin B1 -) 100 mg PO HS [facility] Valacyclovir HCl (Valtrex -) 500 mg PO BID [facility] Last Admin: 05/27/18 10:09 Dose: 500 mg Ass/plan: 58 Y.O. MALE WITH ALCOHOLISM AND COCAINE DEPENDENCE HERE FOR DETOX, pt with slightly increased BP- on meds, pt getting keflex for foot cellulitis. continue detox protocol
[2018-05-27] MEDS: THIAMINE HCL 100 MG TABLET (FP) PO SCH (22:17)
[2018-05-27] MEDS: QUEtiapine FUMARATE 200 MG TABLET PO SCH (22:17)
[2018-05-28] MEDS: CEPHALEXIN MONOHYDRATE 500 MG CAPSULE (UD) PO SCH ×4 (07:47→23:14)
[2018-05-28] MEDS: TAMSULOSIN HCL 0.4 MG CAP.ER.24H (FP) PO SCH (10:13)
[2018-05-28] MEDS: diazePAM 5 MG TABLET PO SCH ×2 (10:13→22:04)
[2018-05-28] MEDS: valACYclovir HCL 500 MG TABLET (FP) PO SCH ×2 (10:13→22:05)
[2018-05-28] MEDS: PRENATAL VITAMINS W/ FOLIC ACID TABLET (FP) PO SCH (10:13)
[2018-05-28] MEDS: ASPIRIN COATED 81 MG TABLET.EC PO SCH (10:13)
[2018-05-28] MEDS: NICOTINE 21 MG/24 HOURS TOPICAL PATCH TD SCH (10:13)
[2018-05-28] MEDS: amLODIPine BESYLATE 10 MG TABLET (FP) PO SCH (10:13)
[2018-05-28] MEDS ORDERED: BACITRACIN 15 GM TUBE TOPICAL OINTMENT TP SCH (10:15)
--- NOTE | 2018-05-28 11:04 | PN ---
S CIWA - CIWA Score Nausea/Vomitin-No Nausea/No Vomiting Muscle Tremors: 4-Moderate,w/Arms Extend Anxiety: 5 Agitation: 4-Moderately Restless Paroxysmal Sweats: 1-Minimal Palms Moist Orientation: 0-Oriented Tacttile Disturbances: 0-None Auditory Disturbances: 0-None Visual Disturbances: 0-None Headache: 0-None Present CIWA-Ar Total Score: 14 [facility] Progress Note (SOAP) Subjective: ANXIETY,IRRITABILITY,RESTLESSNESS,SWEATS. PT C/O SCABS ON LIPS AND LEFT FOOT FROM HOT CRACK GLASS. Objective: 05/28/18 11:10 Vital Signs 05/28/18 05/28/18 05/28/18 03:30 06:05 10:40 Temperature 97.8 F 97.3 F L Pulse Rate 62 87 Respiratory 18 18 18 Rate Blood Pressure 131/81 165/108 Laboratory Tests 05/26/18 05/27/18 05/27/18 09:40 07:40 07:40 WBC 7.7 RBC 4.06 Hgb 12.6 Hct 36.2 D MCV 89.2 MCH 30.9 MCHC 34.7 RDW 13.9 Plt Count 277 MPV 8.6 Sodium 144 Potassium 3.5 Chloride 109 H Carbon Dioxide 24 Anion Gap 11 BUN 19 H Creatinine 0.8 Creat Clearance w eGFR > 60 Random Glucose 101 Calcium 7.6 L Total Bilirubin 0.1 L AST 11 L D ALT 21 D Alkaline Phosphatase 84 Total Protein 6.4 Albumin 2.6 L Urine Color Yellow Urine Appearance Slcloudy Urine pH 6.0 Ur Specific [place] 1.019 Urine Protein 1+ H Urine Glucose (UA) Negative Urine Ketones Negative Urine Blood Negative Urine Nitrite Negative Urine Bilirubin Negative Urine Urobilinogen 2.0 Ur Leukocyte Esterase Negative Urine WBC (Auto) 2 Urine RBC (Auto) 1 Ur Epithelial Cells Rare Hyaline Casts 1 Urine Mucus Rare RPR Titer 05/27/18 07:40 WBC RBC Hgb Hct MCV MCH MCHC RDW Plt Count MPV Sodium Potassium Chloride Carbon Dioxide Anion Gap BUN Creatinine Creat Clearance w eGFR Random Glucose Calcium Total Bilirubin AST ALT Alkaline Phosphatase Total Protein Albumin Urine Color Urine Appearance Urine pH Ur Specific [place] Urine Protein Urine Glucose (UA) Urine Ketones Urine Blood Urine Nitrite Urine Bilirubin Urine Urobilinogen Ur Leukocyte Esterase Urine WBC (Auto) Urine RBC (Auto) Ur Epithelial Cells Hyaline Casts Urine Mucus RPR Titer Nonreactive Assessment: 05/28/18 11:10 WITHDRAWAL SX Plan: CONTINUE DETOX BACITRACIN OINTMENT TO AFFECTED AREAS
[2018-05-28] MEDS ORDERED: cloNIDine HCL 0.1 MG TABLET PO PRN (14:28)
[2018-05-28] MEDS: QUEtiapine FUMARATE 200 MG TABLET PO SCH (22:04)
[2018-05-28] MEDS: THIAMINE HCL 100 MG TABLET (FP) PO SCH (22:04)
[2018-05-28] MEDS: BACITRACIN 0.9 GM PACKET TP SCH (22:04)
[2018-05-29] MEDS: CEPHALEXIN MONOHYDRATE 500 MG CAPSULE (UD) PO SCH ×4 (05:46→23:21)
[2018-05-29] MEDS: NICOTINE 21 MG/24 HOURS TOPICAL PATCH TD SCH (10:05)
[2018-05-29] MEDS: BACITRACIN 0.9 GM PACKET TP SCH ×2 (10:05→22:08)
[2018-05-29] MEDS: TAMSULOSIN HCL 0.4 MG CAP.ER.24H (FP) PO SCH (10:05)
[2018-05-29] MEDS: amLODIPine BESYLATE 10 MG TABLET (FP) PO SCH (10:05)
[2018-05-29] MEDS: valACYclovir HCL 500 MG TABLET (FP) PO SCH ×2 (10:05→22:10)
[2018-05-29] MEDS: PRENATAL VITAMINS W/ FOLIC ACID TABLET (FP) PO SCH (10:05)
[2018-05-29] MEDS: diazePAM 5 MG TABLET PO SCH ×2 (10:07→22:09)
--- NOTE | 2018-05-29 11:21 | PN ---
[facility] Progress Note (SOAP) Subjective: ANXIETY,TREMORS,SWEATS, INTERMITTENT SLEEP. Objective: 05/29/18 11:20 Vital Signs 05/29/18 05/29/18 05/29/18 03:30 06:13 09:06 Temperature 97.9 F 96.8 F L Pulse Rate 83 93 H Respiratory 18 18 18 Rate Blood Pressure 146/91 137/94 Laboratory Tests 05/26/18 05/27/18 05/27/18 09:40 07:40 07:40 WBC 7.7 RBC 4.06 Hgb 12.6 Hct 36.2 D MCV 89.2 MCH 30.9 MCHC 34.7 RDW 13.9 Plt Count 277 MPV 8.6 Sodium 144 Potassium 3.5 Chloride 109 H Carbon Dioxide 24 Anion Gap 11 BUN 19 H Creatinine 0.8 Creat Clearance w eGFR > 60 Random Glucose 101 Calcium 7.6 L Total Bilirubin 0.1 L AST 11 L D ALT 21 D Alkaline Phosphatase 84 Total Protein 6.4 Albumin 2.6 L Urine Color Yellow Urine Appearance Slcloudy Urine pH 6.0 Ur Specific [place] 1.019 Urine Protein 1+ H Urine Glucose (UA) Negative Urine Ketones Negative Urine Blood Negative Urine Nitrite Negative Urine Bilirubin Negative Urine Urobilinogen 2.0 Ur Leukocyte Esterase Negative Urine WBC (Auto) 2 Urine RBC (Auto) 1 Ur Epithelial Cells Rare Hyaline Casts 1 Urine Mucus Rare RPR Titer 05/27/18 07:40 WBC RBC Hgb Hct MCV MCH MCHC RDW Plt Count MPV Sodium Potassium Chloride Carbon Dioxide Anion Gap BUN Creatinine Creat Clearance w eGFR Random Glucose Calcium Total Bilirubin AST ALT Alkaline Phosphatase Total Protein Albumin Urine Color Urine Appearance Urine pH Ur Specific [place] Urine Protein Urine Glucose (UA) Urine Ketones Urine Blood Urine Nitrite Urine Bilirubin Urine Urobilinogen Ur Leukocyte Esterase Urine WBC (Auto) Urine RBC (Auto) Ur Epithelial Cells Hyaline Casts Urine Mucus RPR Titer Nonreactive Assessment: 05/29/18 11:20 WITHDRAWAL SX Plan: CONTINUE DETOX INCREASE PO FLUIDS
[2018-05-29] MEDS: ASPIRIN COATED 81 MG TABLET.EC PO SCH (14:03)
--- NOTE | 2018-05-29 14:21 | EKG ---
Test Reason : Blood Pressure : / mmHG Vent. Rate : 055 BPM Atrial Rate : 055 BPM P-R Int : 126 ms QRS Dur : 094 ms QT Int : 442 ms P-R-T Axes : 063 053 040 degrees QTc Int : 422 ms SINUS BRADYCARDIA MINIMAL VOLTAGE CRITERIA FOR LVH, MAY BE NORMAL VARIANT BORDERLINE ECG WHEN COMPARED WITH ECG OF 22-APR-2018 15:37, NO SIGNIFICANT CHANGE WAS FOUND Confirmed by BRADY NEGRO MD ([id number]) on 05/29/2018 2:21:06 PM Referred By: Confirmed By:BRADY NEGRO MD
[2018-05-29] MEDS: QUEtiapine FUMARATE 200 MG TABLET PO SCH (22:09)
[2018-05-29] MEDS: THIAMINE HCL 100 MG TABLET (FP) PO SCH (22:10)
[2018-05-30] MEDS: CEPHALEXIN MONOHYDRATE 500 MG CAPSULE (UD) PO SCH (05:51)
[2018-05-30 09:11] VITALS: BP 151/103; PULSE 101; TEMP 97.5
[2018-05-30] MEDS: ASPIRIN COATED 81 MG TABLET.EC PO SCH (09:44)
[2018-05-30] MEDS: BACITRACIN 0.9 GM PACKET TP SCH (09:44)
[2018-05-30] MEDS: valACYclovir HCL 500 MG TABLET (FP) PO SCH (09:44)
[2018-05-30] MEDS: PRENATAL VITAMINS W/ FOLIC ACID TABLET (FP) PO SCH (09:44)
[2018-05-30] MEDS: TAMSULOSIN HCL 0.4 MG CAP.ER.24H (FP) PO SCH (09:44)
[2018-05-30] MEDS: amLODIPine BESYLATE 10 MG TABLET (FP) PO SCH (09:45)
[2018-05-30] MEDS: NICOTINE 21 MG/24 HOURS TOPICAL PATCH TD SCH (09:45)
[2018-05-30] MEDS ORDERED: diazePAM 5 MG TABLET PO SCH (10:00)
--- NOTE | 2018-05-30 12:53 | PN ---
[facility] Progress Note (SOAP) Subjective: DETOX COMPLETED. ALERT O X 3. NAD. PT REFERRED TO REHAB TODAY. FOLLOW UP WITH YOUR PRIMARY CARE PROVIDER AT [facility] [place], [facility]. Objective: 05/30/18 12:52 Vital Signs 05/30/18 05/30/18 05:56 09:11 Temperature 96.9 F L 97.5 F L Pulse Rate 77 101 H Respiratory 18 18 Rate Blood Pressure 132/80 151/103 Laboratory Tests 05/26/18 05/27/18 05/27/18 09:40 07:40 07:40 WBC 7.7 RBC 4.06 Hgb 12.6 Hct 36.2 D MCV 89.2 MCH 30.9 MCHC 34.7 RDW 13.9 Plt Count 277 MPV 8.6 Sodium 144 Potassium 3.5 Chloride 109 H Carbon Dioxide 24 Anion Gap 11 BUN 19 H Creatinine 0.8 Creat Clearance w eGFR > 60 Random Glucose 101 Calcium 7.6 L Total Bilirubin 0.1 L AST 11 L D ALT 21 D Alkaline Phosphatase 84 Total Protein 6.4 Albumin 2.6 L Urine Color Yellow Urine Appearance Slcloudy Urine pH 6.0 Ur Specific [place] 1.019 Urine Protein 1+ H Urine Glucose (UA) Negative Urine Ketones Negative Urine Blood Negative Urine Nitrite Negative Urine Bilirubin Negative Urine Urobilinogen 2.0 Ur Leukocyte Esterase Negative Urine WBC (Auto) 2 Urine RBC (Auto) 1 Ur Epithelial Cells Rare Hyaline Casts 1 Urine Mucus Rare RPR Titer 05/27/18 07:40 WBC RBC Hgb Hct MCV MCH MCHC RDW Plt Count MPV Sodium Potassium Chloride Carbon Dioxide Anion Gap BUN Creatinine Creat Clearance w eGFR Random Glucose Calcium Total Bilirubin AST ALT Alkaline Phosphatase Total Protein Albumin Urine Color Urine Appearance Urine pH Ur Specific [place] Urine Protein Urine Glucose (UA) Urine Ketones Urine Blood Urine Nitrite Urine Bilirubin Urine Urobilinogen Ur Leukocyte Esterase Urine WBC (Auto) Urine RBC (Auto) Ur Epithelial Cells Hyaline Casts Urine Mucus RPR Titer Nonreactive Assessment: 05/30/18 12:53 MEDICALLY STABLE Plan: D/C PT TODAY
--- NOTE | 2018-05-30 12:56 | DS ---
[facility] Detox Discharge Summary Admission Date: 05/26/18 Discharge Date: 05/30/18 - History Present History: Alcohol Dependence Additional Comments: DETOX COMPLETED. ALERT O X 3. NAD. FOLLOW UP WITH PRIMARY CARE AT [facility] . Pertinent Past History: PLEASE SEE DX BELOW - Physical Exam Results Vital Signs: Vital Signs Temperature 97.5 F L 05/30/18 09:11 Pulse Rate 101 H 05/30/18 09:11 Respiratory Rate 18 05/30/18 09:11 Blood Pressure 151/103 05/30/18 09:11 O2 Sat by Pulse Oximetry (%) Pertinent Admission Physical Exam Findings: WITHDRAWAL SX - Treatment Hospital Course: Detox Protocol Followed, Detoxed Safely, Responded well, Discharged Condition Good, Rehab Referral Accepted Patient has Accepted a Rehab Referral to: [facility] - Medication Discharge Medications: Ambulatory Orders Elviteg/Cob/Emtri/Tenof Alafen [Genvoya (Non-Formulary)] 1 each PO DAILY #30 tablet 10/31/17 Fluticasone/Salmeterol [Advair 250-50 Diskus] 1 each IH DAILY 12/23/17 Albuterol Sulfate Inhaler - [Ventolin HFA Inhaler -] 2 puff IH Q4H PRN #1 inhaler 12/28/17 Quetiapine Fumarate [Seroquel -] 300 mg PO BID #60 tablet 04/23/18 Amlodipine Besylate [Norvasc -] 10 mg PO DAILY #30 tablet 04/26/18 Aspirin Coated [Ecotrin -] 81 mg PO DAILY #30 tablet.ec 04/26/18 Tamsulosin HCl [Flomax -] 0.4 mg PO DAILY@0830 #30 cap.er.24h 04/26/18 Valacyclovir HCl [Valtrex -] 500 mg PO BID #60 tablet 04/26/18 - Diagnosis (1) Alcohol dependence with uncomplicated withdrawal Status: Acute (2) Cellulitis of left foot Status: Acute (3) Cocaine dependence Status: Acute Qualifiers: Substance use status: uncomplicated Qualified Code(s): F14.20 - Cocaine dependence, uncomplicated (4) Marijuana dependence Status: Acute (5) AIDS (acquired immune deficiency syndrome) Status: Chronic (6) Asthma Status: Chronic Qualifiers: Asthma severity: mild Asthma persistence: unspecified Asthma complication type: uncomplicated Qualified Code(s): J45.909 - Unspecified asthma, uncomplicated (7) BPH (benign prostatic hypertrophy) Status: Chronic Qualifiers: Lower urinary tract symptom presence: symptoms absent Qualified Code(s): N40.0 - Benign prostatic hyperplasia without lower urinary tract symptoms (8) History of herpes genitalis Status: Chronic (9) Hypercholesterolemia Status: Chronic (10) Hypertension Status: Chronic Qualifiers: Hypertension type: essential hypertension Qualified Code(s): I10 - Essential (primary) hypertension (11) Nicotine dependence Status: Acute Qualifiers: Nicotine product type: cigarettes Substance use status: in withdrawal Qualified Code(s): F17.213 - Nicotine dependence, cigarettes, with withdrawal (12) Burn injury Status: Acute - AMA Did Patient Leave Against Medical Advice: No
== END 2018-05-30 10:38 | disposition home or self-care (01) | DRG 774 ==
LOC: YASAS 15:42 → Y3N 19:20
PROC: HZ2ZZZZ Detoxification Services for Substance Abuse Treatment (ICD-10-PCS; principal; 2018-05-26)
DX: F10.230 Alcohol dependence with withdrawal, uncomplicated (principal); F14.20 Cocaine dependence, uncomplicated; F12.20 Cannabis dependence, uncomplicated; F17.213 Nicotine dependence, cigarettes, with withdrawal; F51.05 Insomnia due to other mental disorder; F31.9 Bipolar disorder, unspecified; F19.24 Other psychoactive substance dependence with psychoactive substance-induced mood disorder; F19.282 Other psychoactive substance dependence with psychoactive substance-induced sleep disorder; F39 Unspecified mood [affective] disorder; L40.9 Psoriasis, unspecified; R21 Rash and other nonspecific skin eruption; I10 Essential (primary) hypertension; E78.00 Pure hypercholesterolemia, unspecified; J45.909 Unspecified asthma, uncomplicated; N40.0 Benign prostatic hyperplasia without lower urinary tract symptoms; L03.116 Cellulitis of left lower limb; B18.2 Chronic viral hepatitis C; F25.0 Schizoaffective disorder, bipolar type; Z91.14 Patient's other noncompliance with medication regimen; R63.4 Abnormal weight loss; Z68.23 Body mass index [BMI] 23.0-23.9, adult; Z91.5 Personal history of self-harm; K74.60 Unspecified cirrhosis of liver; B20 Human immunodeficiency virus [HIV] disease; T30.0 Burn of unspecified body region, unspecified degree; X08.8XXA Exposure to other specified smoke, fire and flames, initial encounter; Y93.89 Activity, other specified; Y92.89 Other specified places as the place of occurrence of the external cause; Y99.8 Other external cause status
CPT/HCPCS: 36415; 80053; 81003; 81015; 85027; 86593; 93005; 93010; J0735

== ENCOUNTER 2018-07-14 18:35 | Inpatient (IN) | payer OTHER ==
[2018-07-14 19:02] VITALS: BMI 23.5
--- NOTE | 2018-07-14 21:16 | HP ---
CIWA Score - CIWA Score Nausea/Vomitin-Mild Nausea/No Vomiting Muscle Tremors: 4-Moderate,w/Arms Extend Anxiety: 4-Mod. Anxious/Guarded Agitation: 3 Paroxysmal Sweats: 1-Minimal Palms Moist Orientation: 0-Oriented Tacttile Disturbances: 0-None Auditory Disturbances: 0-None Visual Disturbances: 0-None Headache: 3-Moderate CIWA-Ar Total Score: 16 Admission ROS S - HPI Chief Complaint: Alcohol withdrawal symptoms Allergies/Adverse Reactions: Allergies Allergy/AdvReac Type Severity Reaction Status Date / Time chlordiazepoxide HCl Allergy Severe Rash Verified 07/14/18 20:32 [From Librium] History of Present Illness: 58 years old male with a long history of alcohol dependence is seeking admission to detox. Patient has been in previous detox and reports 5 years of sobriety. He has medical history of HIV+/ AIDS, liver cirrhosis, Herpes, asthma , BPH, anemia, hypertension, depression and anxiety. He reports suicide attempt at age 32 and denies suicidal ideation at this time. Exam Limitations: No Limitations - Ebola screening Have you traveled outside of the country in the last 21 days: No (N) Have you had contact with anyone from an Ebola affected area: No Have you been sick,other than usual withdrawal symptoms: No Do you have a fever: No - Review of Systems Constitutional: Chills, Loss of Appetite, Malaise, Changes in sleep EENT: reports: No Symptoms Reported Respiratory: reports: No Symptoms reported Cardiac: reports: No Symptoms Reported GI: reports: Poor Appetite, Poor Fluid Intake, Abdominal cramping : reports: No Symptoms Reported Musculoskeletal: reports: Back Pain, Joint Pain, Muscle Pain Integumentary: reports: Dryness, Flushing Neuro: reports: Headache, Numbness Endocrine: reports: No Symptoms Reported Hematology: reports: Bleeding Diathesis Psychiatric: reports: Orientated x3, Anxious, Depressed Other Systems: Reviewed and Negative Patient History - Patient Medical History Hx Anemia: Yes (Not on medication) Hx Asthma: Yes (On Albuterol - Not compliant) Hx Chronic Obstructive Pulmonary Disease (COPD): No Hx Cancer: No Hx Cardiac Disorders: No Hx Congestive Heart Failure: No Hx Hypertension: Yes (Not complaint with Norvasc) Hx Hypercholesterolemia: Yes (Not on medication) Hx Pacemaker: No HX Cerebrovascular Accident: No Hx Seizures: No Hx Dementia: No Hx Diabetes: No Hx Gastrointestinal Disorders: No Hx Liver Disease: Yes (CIRRHOSIS) Hx Genitourinary Disorders: Yes (BPH) Hx Sexually Transmitted Disorders: Yes (Herpes- on Valtrex ) Hx Renal Disease (ESRD): No Hx Thyroid Disease: No Hx Human Immunodeficiency Virus (HIV): Yes (Genvoya; non compliant) Hx Hepatitis C: Yes (Treated in 2013; Completed, Uncertain if Cured.) Hx Depression: Yes Hx Suicide Attempt: Yes (2016 CUTTING WRIST) Hx Bipolar Disorder: Yes (Meds., Non-compliant ) Hx Schizophrenia: Yes - Patient Surgical History Past Surgical History: Yes Hx Neurologic Surgery: No Hx Cataract Extraction: No Hx Cardiac Surgery: No Hx Lung Surgery: No Hx Breast Surgery: No Hx Breast Biopsy: No Hx Abdominal Surgery: No Hx Appendectomy: No Hx Cholecystectomy: No Hx Genitourinary Surgery: No Hx Section: No Hx Orthopedic Surgery: No Other Surgical History: RIGHT WRIST SX in 1983 for a laceration; left wrist laceration 1977 Anesthesia Reaction: No - PPD History Date: 02/14/18 Results: 0 mm - Smoking Cessation Smoking history: Current every day smoker Have you smoked in the past 12 months: Yes Aproximately how many cigarettes per day: 20 Cigars Per Day: 0 Hx Chewing Tobacco Use: No Initiated information on smoking cessation: Yes 'Breaking Loose' booklet given: 07/14/18 - Substances Abused Alcohol Route: Oral Frequency: Daily Amount used: 1 PINT VODKA Age of first use: 14 Date of Last Use: 07/14/18 Crack Route: Smoking Frequency: 3-6 times per week Amount used: $200 Age of first use: 35 Date of Last Use: 07/14/18 Heroin Route: SNIFF Frequency: Daily Amount used: $80 Age of first use: 35 Date of Last Use: 07/14/18 Family Disease History - Family Disease History Family Disease History: Diabetes: Mother (HTN, .), Respiratory: Sister ( Asthma), Other: Father (addiction to heroin,), Mother Admission Physical Exam [facility] - Vital Signs Vital Signs: Vital Signs - 24 hr 07/14/18 19:00 Temperature 98.0 F Pulse Rate 63 Respiratory 18 Rate Blood Pressure 143/92 - Physical General Appearance: Yes: Moderate Distress HEENTM: Yes: EOMI, Normal ENT Inspection, Normocephalic, Normal Voice, ROB Respiratory: Yes: Lungs Clear, Normal Breath Sounds, No Respiratory Distress Neck: Yes: Supple Breast: Yes: Breast Exam Deferred Cardiology: Yes: Regular Rhythm, Regular Rate Abdominal: Yes: Normal Bowel Sounds Genitourinary: Yes: Within Normal Limits Back: Yes: Normal Inspection Musculoskeletal: Yes: Within Normal Limits Extremities: Yes: Normal Capillary Refill 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 NML intact, Alert, Normal Mood/Affect Integumentary: Yes: Warm Lymphatic: Yes: Within Normal Limits - Diagnostic (1) Alcohol dependence with uncomplicated withdrawal Current Visit: Yes Status: Chronic (2) Cocaine dependence Current Visit: Yes Status: Chronic Qualifiers: Substance use status: uncomplicated Qualified Code(s): F14.20 - Cocaine dependence, uncomplicated (3) Nicotine dependence Current Visit: Yes Status: Chronic Qualifiers: Nicotine product type: cigarettes Substance use status: in withdrawal Qualified Code(s): F17.213 - Nicotine dependence, cigarettes, with withdrawal (4) AIDS (acquired immune deficiency syndrome) Current Visit: Yes Status: Chronic (5) Asthma Current Visit: Yes Status: Chronic Qualifiers: Asthma severity: mild Asthma persistence: unspecified Asthma complication type: uncomplicated Qualified Code(s): J45.909 - Unspecified asthma, uncomplicated (6) BPH (benign prostatic hypertrophy) Current Visit: Yes Status: Chronic Qualifiers: Lower urinary tract symptom presence: symptoms absent Qualified Code(s): N40.0 - Benign prostatic hyperplasia without lower urinary tract symptoms (7) Cirrhosis of liver Current Visit: Yes Status: Chronic Qualifiers: Hepatic cirrhosis type: unspecified hepatic cirrhosis Ascites presence: without ascites Qualified Code(s): K74.60 - Unspecified cirrhosis of liver (8) HIV (human immunodeficiency virus infection) Current Visit: Yes Status: Chronic (9) Herpes Current Visit: Yes Status: Chronic (10) Hypercholesterolemia Current Visit: Yes Status: Chronic (11) Hypertension Current Visit: Yes Status: Chronic Qualifiers: Hypertension type: essential hypertension Qualified Code(s): I10 - Essential (primary) hypertension (12) Anemia Current Visit: Yes Status: Chronic Qualifiers: Anemia type: unspecified type Qualified Code(s): D64.9 - Anemia, unspecified (13) Anxiety Current Visit: Yes Status: Chronic (14) Depression Current Visit: Yes Status: Suspected Qualifiers: Depression Type: unspecified Qualified Code(s): F32.9 - Major depressive disorder, single episode, unspecified (15) Hepatitis C Current Visit: Yes Status: Chronic Qualifiers: Viral hepatitis chronicity: chronic Hepatic coma status: without hepatic coma Qualified Code(s): B18.2 - Chronic viral hepatitis C Cleared for Admission [facility] - Detox or Rehab [facility] Level of Care: Medically Managed Detox Regimen/Protocol: Valium S Breath Alcohol Content Breath Alcohol Content: 0 Urine Drug Screen - Results Drug Screen Negative: No Urine Drug Screen Results: ANGIE-Cocaine
[2018-07-14] MEDS ORDERED: ACETAMINOPHEN 325 MG TABLET (FP) PO PRN (21:26)
[2018-07-14] MEDS ORDERED: MENTHOL/PHENOL 1 EACH UD MM PRN (21:26)
[2018-07-14] MEDS ORDERED: P-EPHED 60MG/TRIPROLIDI 2.5MG TABLET PO PRN (21:26)
[2018-07-14] MEDS ORDERED: LOPERAMIDE HCL 2 MG CAPSULE PO PRN (21:26)
[2018-07-14] MEDS ORDERED: guaiFENesin/D-METHORPHAN HB 10 ML UNIT-DOSE CUPS PO PRN (21:26)
[2018-07-14] MEDS ORDERED: diazePAM 5 MG TABLET PO PRN (21:26)
[2018-07-14] MEDS ORDERED: MAGNESIUM HYDROX 2400MG/30ML ORAL SUSPENSION 30 ML CUP PO PRN (21:26)
[2018-07-14] MEDS ORDERED: MAGNESIUM CITRATE 300 ML BOTTLE PO PRN (21:26)
[2018-07-14] MEDS ORDERED: NICOTINE POLACRILEX 2 MG GUM BC PRN (21:26)
[2018-07-14] MEDS ORDERED: MAG HYDROX/AL HYDROX/SIMETH 30 ML UNIT-DOSE CUP PO PRN (21:26)
[2018-07-14] MEDS ORDERED: diazePAM 5 MG TABLET PO ONE (21:26)
[2018-07-14] MEDS ORDERED: IBUPROFEN 400 MG TABLET (FP) PO PRN (21:26)
[2018-07-14] MEDS ORDERED: ALBUTEROL SO4 8 GM HFA INHALER IH PRN (21:28)
[2018-07-14] MEDS ORDERED: MELATONIN 5 MG TABLETS PO PRN (22:00)
[2018-07-14] MEDS: THIAMINE HCL 100 MG TABLET (FP) PO SCH (22:45)
[2018-07-14] MEDS: diazePAM 5 MG TABLET PO SCH (22:49)
[2018-07-15] MEDS: diazePAM 5 MG TABLET PO SCH ×3 (05:43→22:46)
[2018-07-15] MEDS: NICOTINE 14 MG/24 HOURS TOPICAL PATCH TD SCH (10:40)
[2018-07-15] MEDS: amLODIPine BESYLATE 10 MG TABLET (FP) PO SCH (10:40)
[2018-07-15] MEDS: PRENATAL VITAMINS W/ FOLIC ACID TABLET (FP) PO SCH (10:40)
[2018-07-15] MEDS: ASPIRIN COATED 81 MG TABLET.EC PO SCH (10:40)
[2018-07-15] MEDS: TAMSULOSIN HCL 0.4 MG CAP PO SCH (10:40)
[2018-07-15] MEDS: BUDESONIDE/FORMETEROL FUMARATE 80/4.5 mcg INHALER IH SCH ×2 (10:41→22:33)
[2018-07-15 10:48] LABS: URINE APPEARANCE TURBID; URINE BILIRUBIN NEGATIVE (<2.0 mg/dL); URINE COLOR AMBER; URINE GLUCOSE (UA) NEGATIVE (NEGATIVE); URINE KETONE NEGATIVE (NEGATIVE); URINE LEUK ESTERASE NEGATIVE (NEGATIVE); URINE NITRITE NEGATIVE (NEGATIVE); URINE PROTEIN 1+ (NEGATIVE); URINE UROBILINOGEN 4.0 E.U/dl mg/dL (0.2-1.0)
[2018-07-15 10:55] LABS: HEMATOCRIT 46.2 % (35.4-49); MCHC 32.6 g/dl (32.0-35.9); MEAN CELL VOLUME 92.3 fl (80-96); MEAN PLT VOLUME 9.2 fl (7.5-11.1); PLATELET COUNT 249 K/MM3 (134-434); RDW 14.3 % (11.9-15.9); WHITE BLOOD COUNT 7.5 K/mm3 (4.0-10.0)
[2018-07-15 11:00] LABS: CALCIUM OXALATE CRYSTALS MANY /hpf (NONE SEEN); EPI CELLS RARE /HPF (FEW); URINE MUCUS RARE
[2018-07-15 11:01] LABS: ALBUMIN 3.4 g/dl (3.4-5.0); ALK PHOS 95 U/L (45-117); ANION GAP 6 MMOL/L (8-16); BILIRUBIN,TOTAL 0.7 mg/dL (0.2-1); BLOOD UREA NITROGEN 18 mg/dL (7-18); CALCIUM 8.2 mg/dL (8.5-10.1); CHLORIDE 108 mmol/L (98-107); CO2 24 mmol/L (21-32); GLUCOSE,RANDOM 90 mg/dL (74-106); POTASSIUM 3.8 mmol/L (3.5-5.1); SGOT/AST 18 U/L (15-37); SGPT/ALT 31 U/L (13-61); SODIUM 139 mmol/L (136-145); TOT PROT 7.6 g/dl (6.4-8.2)
--- NOTE | 2018-07-15 13:33 | CONSULT ---
[facility] Psychiatric Consult - Data Date of interview: 07/15/18 Admission source: [facility] Identifying data: Re-admission to [facility] for this 58 y/o male, self- referred for detoxification treatment (cocaine, alcohol dependence).Patient is single without children,unemployed,domiciled (O setting) and supported via [employer] services. Substance Abuse History: Confirmed by the patient in this interview. Details in current [facility] report : Smoking history: Current every day smoker. Have you smoked in the past 12 months: Yes. Aproximately how many cigarettes per day: 20. Cigars Per Day: 0. Hx Chewing Tobacco Use: No. Initiated information on smoking cessation: Yes. 'Breaking Loose' booklet given: 07/14/18. - Substances Abused. Alcohol. Route: Oral. Frequency: Daily. Amount used: 1 [place]. Age of first use: 14. Date of Last Use: 07/14/18. Crack. Route: Smoking. Frequency: 3-6 times per week. Amount used: $200. Age of first use: 35. Date of Last Use: 07/14/18. Heroin. Route: SNIFF. Frequency: Daily. Amount used: $80. Age of first use: 35. Date of Last Use: 07/14/18 Medical History: Dyslipidemia, antecedent of surgical intervention for laceration of right wrist (1983), HIV infection since 1985 (on medications), herpes genitalis, bronchial asthma, hypertension, cirrhosis of liver, hepatitis C and BPH (benign prostatic hyperplasia). Past history of treatment for gonorrhea. Psychiatric History: Patient endorses a history of " more than 10 " psychiatric hospitalizations ([facility]).Diagnosed with Bipolar Disorder and ADHD (age 9). Patient is maintained on seroquel 300 mg/hs. Mr Up declares that he sees a psychiatrist at the [facility] clinic in [facility]. Chronically non- adherent to OPD care. History of multiple suicide attempts via various means which includes wrist-cutting (1983,2011),overdose with pills and deliberate confrontations with [employer]. Physical/Sexual Abuse/Trauma History: Not discussed : patient declined. Additional Comment: Urine Drug Screen Results: ANGIE-Cocaine. Noted. Mental Status Exam - Mental Status Exam Alert and Oriented to: Time, Place, Person Cognitive Function: Good Patient Appearance: Unkempt, Disheveled Mood: Withdrawn, Anxious Affect: Mood Congruent, Constricted Patient Behavior: Passive, Fatigued, Cooperative Speech Pattern: Clear Voice Loudness: Normal Thought Process: Goal Oriented Thought Disorder: Not Present Hallucinations: Denies Suicidal Ideation: Denies Homicidal Ideation: Denies Insight/Judgement: Poor Sleep: Poorly, Difficulty falling asleep Appetite: Good Muscle strength/Tone: Normal Gait/Station: Normal Psychiatric Findings - Problem List ([place] 1, 2,3) (1) Alcohol dependence with uncomplicated withdrawal Current Visit: Yes Status: Acute (2) Cocaine dependence Current Visit: Yes Status: Acute Qualifiers: Substance use status: uncomplicated Qualified Code(s): F14.20 - Cocaine dependence, uncomplicated (3) Nicotine dependence Current Visit: Yes Status: Acute Qualifiers: Nicotine product type: cigarettes Substance use status: in withdrawal Qualified Code(s): F17.213 - Nicotine dependence, cigarettes, with withdrawal (4) Insomnia Current Visit: Yes Status: Acute Qualifiers: Insomnia type: primary Qualified Code(s): F51.01 - Primary insomnia (5) Substance induced mood disorder Current Visit: Yes Status: Acute (6) Schizoaffective disorder Current Visit: No Status: Chronic Qualifiers: Schizoaffective disorder type: bipolar Qualified Code(s): F25.0 - Schizoaffective disorder, bipolar type Comment: As per self-report and old records.No compliance with OPD care. (7) Non-compliant patient Current Visit: Yes Status: Chronic - Initial Treatment Plan Initial Treatment Plan: Psychoeducation. Sleep hygiene. Psychotherapy sessions : group, supportive, occupational, individual, cognitive. Seroquel is resumed at a lesser dose (150 mg po hs) as a precaution against oversedation / orthostasis. Side effects/benefits discussed. Patient is discouraged from utilizing CPEP settings for medications refills and advised to follow consistent aftercare with a psychiatrist. Relapse prevention discussed with patient as well : informed of the benefits of OPD naltrexone (achievement of sobriety, improvement of life quality, euthymia). Detoxification in progress. Mr Up expressed his agreement with this plan of care. Observation.
--- NOTE | 2018-07-15 14:15 | PN ---
S CIWA - CIWA Score Nausea/Vomitin-Mild Nausea/No Vomiting Muscle Tremors: 2 Anxiety: 2 Agitation: 2 Paroxysmal Sweats: 2 Orientation: 0-Oriented Tacttile Disturbances: 0-None Auditory Disturbances: 0-None Visual Disturbances: 0-None Headache: 1-Very Mild CIWA-Ar Total Score: 10 [facility] Progress Note (SOAP) Subjective: PATIENT C/O SHAKES, SWEATING AND MILD HEADACHE. Objective: 07/15/18 14:13 Laboratory Tests 07/15/18 07/15/18 07/15/18 08:00 08:00 08:00 WBC 7.5 RBC 5.00 Hgb 15.0 Hct 46.2 D MCV 92.3 MCH 30.0 MCHC 32.6 RDW 14.3 Plt Count 249 MPV 9.2 Sodium 139 Potassium 3.8 Chloride 108 H Carbon Dioxide 24 Anion Gap 6 L BUN 18 Creatinine 1.0 Creat Clearance w eGFR > 60 Random Glucose 90 Calcium 8.2 L Total Bilirubin 0.7 AST 18 ALT 31 Alkaline Phosphatase 95 Total Protein 7.6 Albumin 3.4 Urine Color Urine Appearance Urine pH Ur Specific [place] Urine Protein Urine Glucose (UA) Urine Ketones Urine Blood Urine Nitrite Urine Bilirubin Urine Urobilinogen Ur Leukocyte Esterase Urine WBC (Auto) Urine RBC (Auto) Ur Epithelial Cells Calcium Oxalate Crystal Urine Mucus RPR Titer Nonreactive 07/15/18 08:50 WBC RBC Hgb Hct MCV MCH MCHC RDW Plt Count MPV Sodium Potassium Chloride Carbon Dioxide Anion Gap BUN Creatinine Creat Clearance w eGFR Random Glucose Calcium Total Bilirubin AST ALT Alkaline Phosphatase Total Protein Albumin Urine Color Silvia Urine Appearance Turbid Urine pH 6.0 Ur Specific [place] 1.027 Urine Protein 1+ H Urine Glucose (UA) Negative Urine Ketones Negative Urine Blood Negative Urine Nitrite Negative Urine Bilirubin Negative Urine Urobilinogen 4.0 e.u/dl Ur Leukocyte Esterase Negative Urine WBC (Auto) 2 Urine RBC (Auto) 1 Ur Epithelial Cells Rare Calcium Oxalate Crystal Many Urine Mucus Rare RPR Titer SKIN WARM AND MOIST CAR S1S2 RESP CTA BL EXT +TREMORS, FULL ROM AMB AD JULIANA ALERT AND ORIENTED X 3 Assessment: 07/15/18 14:14 WITHDRAWAL SX Plan: CONTINUE DETOX ENCOURAGE ORAL FLUIDS CONTINUE TO MONITOR CLINICALLY
[2018-07-15] MEDS ORDERED: ONDANSETRON *ODT* 4 MG TABLET SL ONE (19:22)
--- NOTE | 2018-07-15 19:24 | PN ---
[facility] Progress Note Note: zofran ordered for pt's nausea
[2018-07-15] MEDS: QUEtiapine FUMARATE 100 MG TABLET (FP) PO SCH (22:46)
[2018-07-15] MEDS: THIAMINE HCL 100 MG TABLET (FP) PO SCH (22:46)
[2018-07-16] MEDS: TAMSULOSIN HCL 0.4 MG CAP PO SCH (10:37)
[2018-07-16] MEDS: diazePAM 5 MG TABLET PO SCH ×2 (10:37→22:47)
[2018-07-16] MEDS: amLODIPine BESYLATE 10 MG TABLET (FP) PO SCH (10:37)
[2018-07-16] MEDS: ASPIRIN COATED 81 MG TABLET.EC PO SCH (10:37)
[2018-07-16] MEDS: PRENATAL VITAMINS W/ FOLIC ACID TABLET (FP) PO SCH (10:40)
[2018-07-16] MEDS: BUDESONIDE/FORMETEROL FUMARATE 80/4.5 mcg INHALER IH SCH ×2 (10:40→23:31)
[2018-07-16] MEDS: NICOTINE 14 MG/24 HOURS TOPICAL PATCH TD SCH (10:40)
[2018-07-16] MEDS ORDERED: cloNIDine HCL 0.1 MG TABLET PO PRN (17:28)
--- NOTE | 2018-07-16 17:34 | PN ---
[facility] CIWA - CIWA Score Nausea/Vomitin Muscle Tremors: 4-Moderate,w/Arms Extend Anxiety: 3 Agitation: 3 Paroxysmal Sweats: 3 Orientation: 0-Oriented Tacttile Disturbances: 0-None Auditory Disturbances: 0-None Visual Disturbances: 0-None Headache: 0-None Present CIWA-Ar Total Score: 15 [facility] Progress Note (SOAP) Subjective: Interrupted sleep, sweating, chills Objective: 07/16/18 17:23 Last Vital Signs Temp Pulse Resp BP Pulse Ox 96.4 F L 93 H 20 141/92 07/16/18 13:11 07/16/18 13:11 07/16/18 13:11 07/16/18 13:11 Laboratory Tests 07/15/18 07/15/18 07/15/18 08:00 08:00 08:00 WBC 7.5 RBC 5.00 Hgb 15.0 Hct 46.2 D MCV 92.3 MCH 30.0 MCHC 32.6 RDW 14.3 Plt Count 249 MPV 9.2 Sodium 139 Potassium 3.8 Chloride 108 H Carbon Dioxide 24 Anion Gap 6 L BUN 18 Creatinine 1.0 Creat Clearance w eGFR > 60 Random Glucose 90 Calcium 8.2 L Total Bilirubin 0.7 AST 18 ALT 31 Alkaline Phosphatase 95 Total Protein 7.6 Albumin 3.4 Urine Color Urine Appearance Urine pH Ur Specific [place] Urine Protein Urine Glucose (UA) Urine Ketones Urine Blood Urine Nitrite Urine Bilirubin Urine Urobilinogen Ur Leukocyte Esterase Urine WBC (Auto) Urine RBC (Auto) Ur Epithelial Cells Calcium Oxalate Crystal Urine Mucus RPR Titer Nonreactive 07/15/18 08:50 WBC RBC Hgb Hct MCV MCH MCHC RDW Plt Count MPV Sodium Potassium Chloride Carbon Dioxide Anion Gap BUN Creatinine Creat Clearance w eGFR Random Glucose Calcium Total Bilirubin AST ALT Alkaline Phosphatase Total Protein Albumin Urine Color Silvia Urine Appearance Turbid Urine pH 6.0 Ur Specific [place] 1.027 Urine Protein 1+ H Urine Glucose (UA) Negative Urine Ketones Negative Urine Blood Negative Urine Nitrite Negative Urine Bilirubin Negative Urine Urobilinogen 4.0 e.u/dl Ur Leukocyte Esterase Negative Urine WBC (Auto) 2 Urine RBC (Auto) 1 Ur Epithelial Cells Rare Calcium Oxalate Crystal Many Urine Mucus Rare RPR Titer Labs reviewed: abnormal UA Assessment: 07/16/18 17:23 Withdrawal symptoms Noted with abnormal UA Plan: Continue detox Add clonidine 0.1mg PO q8hr prn if b/p > 140/90 Abnormal UA: encouraged PO water intake, repeat UA
[2018-07-16] MEDS: THIAMINE HCL 100 MG TABLET (FP) PO SCH (22:47)
[2018-07-16] MEDS: QUEtiapine FUMARATE 100 MG TABLET (FP) PO SCH (22:47)
[2018-07-17] MEDS: ASPIRIN COATED 81 MG TABLET.EC PO SCH (10:37)
[2018-07-17] MEDS: TAMSULOSIN HCL 0.4 MG CAP PO SCH (10:37)
[2018-07-17] MEDS: BUDESONIDE/FORMETEROL FUMARATE 80/4.5 mcg INHALER IH SCH ×2 (10:37→22:20)
[2018-07-17] MEDS: NICOTINE 14 MG/24 HOURS TOPICAL PATCH TD SCH (10:37)
[2018-07-17] MEDS: amLODIPine BESYLATE 10 MG TABLET (FP) PO SCH (10:37)
[2018-07-17] MEDS: PRENATAL VITAMINS W/ FOLIC ACID TABLET (FP) PO SCH (10:37)
[2018-07-17] MEDS: diazePAM 5 MG TABLET PO SCH ×2 (10:38→22:19)
--- NOTE | 2018-07-17 14:10 | PN ---
[facility] Progress Note (SOAP) Subjective: Vomiting, sweating, nausea, interrupted sleep Objective: 07/17/18 14:07 Last Vital Signs Temp Pulse Resp BP Pulse Ox 96.5 F L 91 H 20 135/78 07/17/18 13:16 07/17/18 13:16 07/17/18 13:16 07/17/18 13:16 Laboratory Tests 07/15/18 07/15/18 07/15/18 08:00 08:00 08:00 WBC 7.5 RBC 5.00 Hgb 15.0 Hct 46.2 D MCV 92.3 MCH 30.0 MCHC 32.6 RDW 14.3 Plt Count 249 MPV 9.2 Sodium 139 Potassium 3.8 Chloride 108 H Carbon Dioxide 24 Anion Gap 6 L BUN 18 Creatinine 1.0 Creat Clearance w eGFR > 60 Random Glucose 90 Calcium 8.2 L Total Bilirubin 0.7 AST 18 ALT 31 Alkaline Phosphatase 95 Total Protein 7.6 Albumin 3.4 Urine Color Urine Appearance Urine pH Ur Specific [place] Urine Protein Urine Glucose (UA) Urine Ketones Urine Blood Urine Nitrite Urine Bilirubin Urine Urobilinogen Ur Leukocyte Esterase Urine WBC (Auto) Urine RBC (Auto) Ur Epithelial Cells Calcium Oxalate Crystal Urine Mucus RPR Titer Nonreactive 07/15/18 08:50 WBC RBC Hgb Hct MCV MCH MCHC RDW Plt Count MPV Sodium Potassium Chloride Carbon Dioxide Anion Gap BUN Creatinine Creat Clearance w eGFR Random Glucose Calcium Total Bilirubin AST ALT Alkaline Phosphatase Total Protein Albumin Urine Color Silvia Urine Appearance Turbid Urine pH 6.0 Ur Specific [place] 1.027 Urine Protein 1+ H Urine Glucose (UA) Negative Urine Ketones Negative Urine Blood Negative Urine Nitrite Negative Urine Bilirubin Negative Urine Urobilinogen 4.0 e.u/dl Ur Leukocyte Esterase Negative Urine WBC (Auto) 2 Urine RBC (Auto) 1 Ur Epithelial Cells Rare Calcium Oxalate Crystal Many Urine Mucus Rare RPR Titer Labs reviewed: abnormal UA Assessment: 07/17/18 14:09 Withdrawal symptoms Noted with abnormal UA Plan: Continue detox Abnormal UA: encouraged PO water intake, repeat UA
[2018-07-17] MEDS: THIAMINE HCL 100 MG TABLET (FP) PO SCH (22:19)
[2018-07-17] MEDS: QUEtiapine FUMARATE 50 MG TABLET PO SCH (22:19)
[2018-07-17 23:49] LABS: URINE APPEARANCE CLEAR; URINE BILIRUBIN NEGATIVE (<2.0 mg/dL); URINE COLOR LTYELLOW; URINE GLUCOSE (UA) NEGATIVE (NEGATIVE); URINE KETONE NEGATIVE (NEGATIVE); URINE LEUK ESTERASE NEGATIVE (NEGATIVE); URINE NITRITE NEGATIVE (NEGATIVE); URINE PROTEIN NEGATIVE (NEGATIVE); URINE UROBILINOGEN NEGATIVE mg/dL (0.2-1.0)
[2018-07-18] MEDS ORDERED: diazePAM 5 MG TABLET PO SCH (10:00)
[2018-07-18] MEDS: ASPIRIN COATED 81 MG TABLET.EC PO SCH (10:48)
[2018-07-18] MEDS: NICOTINE 14 MG/24 HOURS TOPICAL PATCH TD SCH (10:48)
[2018-07-18] MEDS: amLODIPine BESYLATE 10 MG TABLET (FP) PO SCH (10:48)
[2018-07-18] MEDS: BUDESONIDE/FORMETEROL FUMARATE 80/4.5 mcg INHALER IH SCH ×2 (10:48→22:26)
[2018-07-18] MEDS: TAMSULOSIN HCL 0.4 MG CAP PO SCH (10:48)
[2018-07-18] MEDS: PRENATAL VITAMINS W/ FOLIC ACID TABLET (FP) PO SCH (10:48)
--- NOTE | 2018-07-18 15:23 | PN ---
[facility] Progress Note (SOAP) Subjective: Chills, sweating; c/o sore throat since yesterday which is worse today. Patient is chronic cigarette smoker. Objective: 07/18/18 15:20 Last Vital Signs Temp Pulse Resp BP Pulse Ox 96.7 F L 82 18 109/68 07/18/18 13:25 07/18/18 13:25 07/18/18 13:25 07/18/18 13:25 PE: Mouth: moist mucous membranes, moderate pharyngeal erythema without exudates Laboratory Tests 07/15/18 07/15/18 07/15/18 08:00 08:00 08:00 WBC 7.5 RBC 5.00 Hgb 15.0 Hct 46.2 D MCV 92.3 MCH 30.0 MCHC 32.6 RDW 14.3 Plt Count 249 MPV 9.2 Sodium 139 Potassium 3.8 Chloride 108 H Carbon Dioxide 24 Anion Gap 6 L BUN 18 Creatinine 1.0 Creat Clearance w eGFR > 60 Random Glucose 90 Calcium 8.2 L Total Bilirubin 0.7 AST 18 ALT 31 Alkaline Phosphatase 95 Total Protein 7.6 Albumin 3.4 Urine Color Urine Appearance Urine pH Ur Specific [place] Urine Protein Urine Glucose (UA) Urine Ketones Urine Blood Urine Nitrite Urine Bilirubin Urine Urobilinogen Ur Leukocyte Esterase Urine WBC (Auto) Urine RBC (Auto) Ur Epithelial Cells Calcium Oxalate Crystal Urine Mucus RPR Titer Nonreactive 07/15/18 07/17/18 08:50 22:22 WBC RBC Hgb Hct MCV MCH MCHC RDW Plt Count MPV Sodium Potassium Chloride Carbon Dioxide Anion Gap BUN Creatinine Creat Clearance w eGFR Random Glucose Calcium Total Bilirubin AST ALT Alkaline Phosphatase Total Protein Albumin Urine Color Silvia Ltyellow Urine Appearance Turbid Clear Urine pH 6.0 7.0 Ur Specific [place] 1.027 1.016 Urine Protein 1+ H Negative Urine Glucose (UA) Negative Negative Urine Ketones Negative Negative Urine Blood Negative Negative Urine Nitrite Negative Negative Urine Bilirubin Negative Negative Urine Urobilinogen 4.0 e.u/dl Negative Ur Leukocyte Esterase Negative Negative Urine WBC (Auto) 2 Urine RBC (Auto) 1 Ur Epithelial Cells Rare Calcium Oxalate Crystal Many Urine Mucus Rare RPR Titer Labs reviewed Assessment: 07/18/18 15:21 Withdrawal symptoms Noted with acute pharyngitis Plan: Continue detox Acute pharyngitis: encouraged PO water intake, encouraged cepastat lozenge, start Z Reed
[2018-07-18] MEDS ORDERED: AZITHROMYCIN 250 MG TABLET PO ONE (15:27)
[2018-07-18] MEDS: THIAMINE HCL 100 MG TABLET (FP) PO SCH (22:26)
[2018-07-18] MEDS: QUEtiapine FUMARATE 50 MG TABLET PO SCH (22:26)
[2018-07-19 09:38] VITALS: BP 135/81; PULSE 81; TEMP 98.6
[2018-07-19] MEDS ORDERED: AZITHROMYCIN 250 MG TABLET PO SCH (10:00)
[2018-07-19] MEDS: NICOTINE 14 MG/24 HOURS TOPICAL PATCH TD SCH (10:31)
[2018-07-19] MEDS: amLODIPine BESYLATE 10 MG TABLET (FP) PO SCH (10:31)
[2018-07-19] MEDS: BUDESONIDE/FORMETEROL FUMARATE 80/4.5 mcg INHALER IH SCH (10:31)
[2018-07-19] MEDS: TAMSULOSIN HCL 0.4 MG CAP PO SCH (10:31)
[2018-07-19] MEDS: PRENATAL VITAMINS W/ FOLIC ACID TABLET (FP) PO SCH (10:31)
[2018-07-19] MEDS: ASPIRIN COATED 81 MG TABLET.EC PO SCH (10:31)
--- NOTE | 2018-07-19 11:03 | DS ---
[facility] Detox Discharge Summary Admission Date: 07/14/18 Discharge Date: 07/19/18 - History Present History: Alcohol Dependence, Cocaine Dependence Pertinent Past History: Alcohol dependence Cocaine dependence Nicotine dependence - Physical Exam Results Vital Signs: Vital Signs Temperature 98.6 F 07/19/18 09:38 Pulse Rate 81 07/19/18 09:38 Respiratory Rate 18 07/19/18 09:38 Blood Pressure 135/81 07/19/18 09:38 O2 Sat by Pulse Oximetry (%) Pertinent Admission Physical Exam Findings: Withdrawal symptoms Laboratory Tests 07/15/18 07/15/18 07/15/18 08:00 08:00 08:00 WBC 7.5 RBC 5.00 Hgb 15.0 Hct 46.2 D MCV 92.3 MCH 30.0 MCHC 32.6 RDW 14.3 Plt Count 249 MPV 9.2 Sodium 139 Potassium 3.8 Chloride 108 H Carbon Dioxide 24 Anion Gap 6 L BUN 18 Creatinine 1.0 Creat Clearance w eGFR > 60 Random Glucose 90 Calcium 8.2 L Total Bilirubin 0.7 AST 18 ALT 31 Alkaline Phosphatase 95 Total Protein 7.6 Albumin 3.4 Urine Color Urine Appearance Urine pH Ur Specific [place] Urine Protein Urine Glucose (UA) Urine Ketones Urine Blood Urine Nitrite Urine Bilirubin Urine Urobilinogen Ur Leukocyte Esterase Urine WBC (Auto) Urine RBC (Auto) Ur Epithelial Cells Calcium Oxalate Crystal Urine Mucus RPR Titer Nonreactive 07/15/18 07/17/18 08:50 22:22 WBC RBC Hgb Hct MCV MCH MCHC RDW Plt Count MPV Sodium Potassium Chloride Carbon Dioxide Anion Gap BUN Creatinine Creat Clearance w eGFR Random Glucose Calcium Total Bilirubin AST ALT Alkaline Phosphatase Total Protein Albumin Urine Color [place] Ltyellow Urine Appearance Turbid Clear Urine pH 6.0 7.0 Ur Specific [place] 1.027 1.016 Urine Protein 1+ H Negative Urine Glucose (UA) Negative Negative Urine Ketones Negative Negative Urine Blood Negative Negative Urine Nitrite Negative Negative Urine Bilirubin Negative Negative Urine Urobilinogen 4.0 e.u/dl Negative Ur Leukocyte Esterase Negative Negative Urine WBC (Auto) 2 Urine RBC (Auto) 1 Ur Epithelial Cells Rare Calcium Oxalate Crystal Many Urine Mucus Rare RPR Titer Labs reviewed - Treatment Hospital Course: Detox Protocol Followed, Detoxed Safely, Responded well, Discharged Condition Good - Medication Discharge Medications: Ambulatory Orders Elviteg/Cob/Emtri/Tenof Alafen [Genvoya (Non-Formulary)] 1 each PO DAILY #30 tablet 10/31/17 Fluticasone/Salmeterol [Advair 250-50 Diskus] 1 each IH DAILY 12/23/17 Albuterol Sulfate Inhaler - [Ventolin HFA Inhaler -] 2 puff IH Q4H PRN #1 inhaler 12/28/17 Quetiapine Fumarate [Seroquel -] 300 mg PO BID #60 tablet 04/23/18 Amlodipine Besylate [Norvasc -] 10 mg PO DAILY #30 tablet 04/26/18 Aspirin Coated [Ecotrin -] 81 mg PO DAILY #30 tablet.ec 04/26/18 Tamsulosin HCl [Flomax -] 0.4 mg PO DAILY@829 #30 cap.er.24h 05/30/18 Valacyclovir HCl [Valtrex -] 500 mg PO BID #60 tablet 05/30/18 Azithromycin [Zithromax -] 250 mg PO DAILY 3 Days tablet 07/19/18 - Diagnosis (1) Alcohol dependence with uncomplicated withdrawal Current Visit: Yes Status: Acute (2) Cocaine dependence Current Visit: Yes Status: Chronic Qualifiers: Substance use status: uncomplicated Qualified Code(s): F14.20 - Cocaine dependence, uncomplicated (3) Insomnia Current Visit: Yes Status: Acute Qualifiers: Insomnia type: primary Qualified Code(s): F51.01 - Primary insomnia (4) Nicotine dependence Current Visit: Yes Status: Chronic Qualifiers: Nicotine product type: cigarettes Substance use status: in withdrawal Qualified Code(s): F17.213 - Nicotine dependence, cigarettes, with withdrawal (5) Substance induced mood disorder Current Visit: Yes Status: Acute (6) Schizoaffective disorder Current Visit: Yes Status: Chronic Qualifiers: Schizoaffective disorder type: bipolar Qualified Code(s): F25.0 - Schizoaffective disorder, bipolar type (7) Acute pharyngitis Current Visit: Yes Status: Acute - AMA Did Patient Leave Against Medical Advice: No (F/U with your PCP within 1-2 weeks )
== END 2018-07-19 11:42 | disposition home or self-care (01) | DRG 774 ==
LOC: YASAS 18:35 → Y3N 20:46
PROC: HZ2ZZZZ Detoxification Services for Substance Abuse Treatment (ICD-10-PCS; principal; 2018-07-14)
DX: F10.230 Alcohol dependence with withdrawal, uncomplicated (principal); F14.20 Cocaine dependence, uncomplicated; F17.213 Nicotine dependence, cigarettes, with withdrawal; F51.01 Primary insomnia; F19.24 Other psychoactive substance dependence with psychoactive substance-induced mood disorder; F25.9 Schizoaffective disorder, unspecified; F41.9 Anxiety disorder, unspecified; I10 Essential (primary) hypertension; B20 Human immunodeficiency virus [HIV] disease; K74.60 Unspecified cirrhosis of liver; E78.5 Hyperlipidemia, unspecified; J02.9 Acute pharyngitis, unspecified; B18.2 Chronic viral hepatitis C; R82.90 Unspecified abnormal findings in urine; J45.909 Unspecified asthma, uncomplicated; N40.0 Benign prostatic hyperplasia without lower urinary tract symptoms; Z91.14 Patient's other noncompliance with medication regimen; Z91.15 Patient's noncompliance with renal dialysis
CPT/HCPCS: 36415; 80053; 81003; 81015; 85027; 86593; J0735; Q0162

== ENCOUNTER 2018-08-18 10:24 | Inpatient (IN) | payer OTHER ==
[2018-08-18 10:57] VITALS: BMI 22.8
--- NOTE | 2018-08-18 11:00 | HP ---
CIWA Score Nausea/Vomitin Muscle Tremors: 2 Anxiety: 2 Agitation: 2 Paroxysmal Sweats: 1-Minimal Palms Moist Orientation: 0-Oriented Tacttile Disturbances: 1-Very Mild Itch/Numbness Auditory Disturbances: 1-Very Mild Visual Disturbances: 0-None Headache: 2-Mild CIWA-Ar Total Score: 13 - Admission Criteria [facility] Guidelines: Admission for Medically Managed Detox: Requires at least one of the followin. CIWA greater than 12 2. Seizures within the past 24 hours 3. Delirium tremens within the past 24 hours 4. Hallucinations within the past 24 hours 5. Acute intervention needed for co occurring medical disorder 6. Acute intervention needed for co occurring psychiatric disorder 7. Severe withdrawal that cannot be handled at a lower level of care (continued vomiting, continued diarrhea, abnormal vital signs) requiring intravenous medication and/or fluids 8. Patient presents the following: CIWA greater than 12 Admission Criteria Met: Admission criteria met Admission ROS [facility] - HPI Chief Complaint: i need help to stop drinking alcohol,cocaine dependence,and heroin abused Allergies/Adverse Reactions: Allergies Allergy/AdvReac Type Severity Reaction Status Date / Time chlordiazepoxide HCl Allergy Severe Rash Verified 08/18/18 11:07 [From Librium] History of Present Illness: this 58 years old male with alcohol,cocaine dependence,heroin abused.seeking detox,withdrawal symptom,last detox [facility] 07/14/18 to 07/09/18 history of hypertension,asthma,bph,hypecholesterolemia hiv since 1985 hepatitis c treated genital herpes nicotine dependence weight loss bipolar disorder,schizoaffective disorder longest period of sobriety 5 years Exam Limitations: No Limitations - Ebola screening Have you traveled outside of the country in the last 21 days: No Have you been sick,other than usual withdrawal symptoms: No - Review of Systems Constitutional: Loss of Appetite, Malaise, Night Sweats, Changes in sleep, Weakness, Unintentional Wgt. Loss EENT: reports: Tearing, Nose Congestion Respiratory: reports: No Symptoms reported Cardiac: reports: No Symptoms Reported GI: reports: Diarrhea, Nausea, Vomiting, Abdominal cramping : reports: No Symptoms Reported Musculoskeletal: reports: Back Pain, Muscle Pain Integumentary: reports: Dryness Neuro: reports: Headache, Tremors Hematology: reports: No Symptoms Reported, Other (hiv) Psychiatric: reports: No Sypmtoms Reported, Judgement Intact, Mood/Affect Appropiate, Orientated x3, other (bipolar disorder,) Patient History - Patient Medical History Hx Anemia: Yes (Not on medication) Hx Asthma: Yes (On Albuterol - Not compliant) Hx Chronic Obstructive Pulmonary Disease (COPD): No Hx Cancer: No Hx Cardiac Disorders: No Hx Congestive Heart Failure: No Hx Hypertension: Yes (Not complaint with Norvasc) Hx Hypercholesterolemia: Yes (Not on medication) Hx Pacemaker: No HX Cerebrovascular Accident: No Hx Seizures: No Hx Dementia: No Hx Diabetes: No Hx Gastrointestinal Disorders: No Hx Liver Disease: Yes (CIRRHOSIS) Hx Genitourinary Disorders: Yes (BPH) Hx Sexually Transmitted Disorders: Yes (Herpes- on Valtrex ) Hx Renal Disease (ESRD): No Hx Thyroid Disease: No Hx Human Immunodeficiency Virus (HIV): Yes (Genvoya; non compliant) Hx Hepatitis C: Yes (Treated in 2013; Completed, Uncertain if Cured.) Hx Depression: Yes Hx Suicide Attempt: Yes (2016 CUTTING WRIST) Hx Bipolar Disorder: Yes (Meds., Non-compliant ) Hx Schizophrenia: Yes Other Medical History: no sucidal,no homicidal - Patient Surgical History Past Surgical History: Yes Hx Neurologic Surgery: No Hx Cataract Extraction: No Hx Cardiac Surgery: No Hx Lung Surgery: No Hx Breast Surgery: No Hx Breast Biopsy: No Hx Abdominal Surgery: No Hx Appendectomy: No Hx Cholecystectomy: No Hx Genitourinary Surgery: No Hx Section: No Hx Orthopedic Surgery: No Other Surgical History: RIGHT WRIST SX in 1983 for a laceration; left wrist laceration 1977 Anesthesia Reaction: No - PPD History Previous Implant?: Yes Documented Results: Negative w/proof Implanted On Prior [facility] Admission?: Yes Date: 07/16/18 Results: 0 mm PPD to be Administered?: No - Smoking Cessation Smoking history: Current every day smoker Have you smoked in the past 12 months: Yes Aproximately how many cigarettes per day: 20 Cigars Per Day: 0 Hx Chewing Tobacco Use: No Initiated information on smoking cessation: Yes 'Breaking Loose' booklet given: 08/25/18 - Substance & Tx. History Hx Alcohol Use: Yes Hx Substance Use: Yes Substance Use Type: Alcohol, Cocaine, Heroin Hx Substance Use Treatment: Yes ([facility] 07/14/18 to 07/19/18 completed) - Substances Abused Heroin Route: Inhalation Frequency: Daily Amount used: 5 BAGS Age of first use: 25 Date of Last Use: 08/14/18 Alcohol Route: Oral Frequency: Daily Amount used: 1 PINT VODKA Age of first use: 20 Date of Last Use: 08/18/18 Crack Route: Smoking Frequency: Daily Amount used: $100 AND UP Age of first use: 34 Date of Last Use: 08/17/18 Family Disease History - Family Disease History Family Disease History: Diabetes: Mother (HTN, .), Respiratory: Sister ( Asthma), Other: Father (addiction to heroin,), Mother Admission Physical Exam [facility] - Vital Signs Vital Signs: Vital Signs - 24 hr 08/18/18 10:54 Temperature 97.2 F L Pulse Rate 66 Respiratory 18 Rate Blood Pressure 148/92 - Physical General Appearance: Yes: Moderate Distress, Tremorous, Irritable, Sweating, Anxious HEENTM: Yes: Normal ENT Inspection, ROB, Pharynx Normal Respiratory: Yes: Lungs Clear, Normal Breath Sounds (history of asthma), No Respiratory Distress Neck: Yes: Within Normal Limits, Supple, Trachea in good position Breast: Yes: Within Normal Limits Cardiology: Yes: Within Normal Limits, Regular Rhythm, Regular Rate, S1, S2 Abdominal: Yes: Within Normal Limits, Normal Bowel Sounds, Non Tender, Flat, Soft Genitourinary: Yes: Within Normal Limits Back: Yes: Muscle Spasm Musculoskeletal: Yes: full range of Motion, Back pain, Muscle Pain Extremities: Yes: Within Normal Limits, Normal Range of Motion, Tremors Neurological: Yes: bath mixer II-XII NML intact, Fully Oriented, Alert, Motor Strength 5/5 Integumentary: Yes: Dry, Other (rash of right face) Lymphatic: Yes: Within Normal Limits - Diagnostic (1) Alcohol dependence with uncomplicated withdrawal Current Visit: No Status: Acute (2) Asthma Current Visit: No Status: Chronic Qualifiers: Asthma severity: mild Asthma persistence: unspecified Asthma complication type: uncomplicated Qualified Code(s): J45.909 - Unspecified asthma, uncomplicated (3) BPH (benign prostatic hypertrophy) Current Visit: No Status: Chronic Qualifiers: Lower urinary tract symptom presence: symptoms absent Qualified Code(s): N40.0 - Benign prostatic hyperplasia without lower urinary tract symptoms (4) Cirrhosis of liver Current Visit: No Status: Chronic Qualifiers: Hepatic cirrhosis type: unspecified hepatic cirrhosis Ascites presence: without ascites Qualified Code(s): K74.60 - Unspecified cirrhosis of liver (5) Cocaine dependence Current Visit: No Status: Chronic Qualifiers: Substance use status: uncomplicated Qualified Code(s): F14.20 - Cocaine dependence, uncomplicated (6) Hepatitis C Current Visit: No Status: Chronic Qualifiers: Viral hepatitis chronicity: chronic Hepatic coma status: without hepatic coma Qualified Code(s): B18.2 - Chronic viral hepatitis C (7) History of herpes genitalis Current Visit: No Status: Chronic (8) Weight loss Current Visit: Yes Status: Acute (9) Rash of face Current Visit: No Status: Chronic (10) Heroin abuse Current Visit: Yes Status: Acute (11) Contact dermatitis Current Visit: Yes Status: Acute Cleared for Admission [facility] - Detox or Rehab [facility] Level of Care: Medically Managed Detox Regimen/Protocol: Valium (urine for drug screen showd positive for cocaine ,negative for opiate) [facility] Breath Alcohol Content Breath Alcohol Content: 0 Urine Drug Screen - Results Drug Screen Negative: No Urine Drug Screen Results: ANGIE-Cocaine
[2018-08-18] MEDS ORDERED: guaiFENesin/D-METHORPHAN HB 10 ML UNIT-DOSE CUPS PO PRN (11:27)
[2018-08-18] MEDS ORDERED: MAGNESIUM HYDROX 2400MG/30ML ORAL SUSPENSION 30 ML CUP PO PRN (11:27)
[2018-08-18] MEDS ORDERED: P-EPHED 60MG/TRIPROLIDI 2.5MG TABLET PO PRN (11:27)
[2018-08-18] MEDS ORDERED: MAG HYDROX/AL HYDROX/SIMETH 30 ML UNIT-DOSE CUP PO PRN (11:27)
[2018-08-18] MEDS ORDERED: MENTHOL/PHENOL 1 EACH UD MM PRN (11:27)
[2018-08-18] MEDS ORDERED: diazePAM 5 MG TABLET PO PRN (11:27)
[2018-08-18] MEDS ORDERED: hydrOXYzine PAMOATE 25 MG CAPSULE (FP) PO PRN (11:27)
[2018-08-18] MEDS ORDERED: LOPERAMIDE HCL 2 MG CAPSULE PO PRN (11:27)
[2018-08-18] MEDS ORDERED: MAGNESIUM CITRATE 300 ML BOTTLE PO PRN (11:27)
[2018-08-18] MEDS ORDERED: IBUPROFEN 400 MG TABLET (FP) PO PRN (11:27)
[2018-08-18] MEDS ORDERED: ALBUTEROL SO4 8 GM HFA INHALER IH PRN (11:32)
[2018-08-18] MEDS ORDERED: diazePAM 5 MG TABLET PO ONE (11:40)
[2018-08-18] MEDS: NICOTINE POLACRILEX 2 MG GUM BUC PRN (12:53)
[2018-08-18] MEDS: NICOTINE 21 MG/24 HOURS TOPICAL PATCH TD SCH (12:53)
[2018-08-18] MEDS: diazePAM 5 MG TABLET PO SCH ×2 (15:07→23:04)
[2018-08-18] MEDS: HYDROCORTISONE 1% TOPICAL CREAM 30 GM TUBE TP SCH ×2 (15:58→23:05)
[2018-08-18] MEDS: MELATONIN 5 MG TABLETS PO PRN (23:04)
[2018-08-18] MEDS: valACYclovir HCL 500 MG TABLET (FP) PO SCH (23:04)
[2018-08-18] MEDS: THIAMINE HCL 100 MG TABLET (FP) PO SCH (23:04)
[2018-08-18 23:35] LABS: URINE APPEARANCE CLEAR; URINE BILIRUBIN NEGATIVE (<2.0 mg/dL); URINE COLOR YELLOW; URINE GLUCOSE (UA) NEGATIVE (NEGATIVE); URINE KETONE NEGATIVE (NEGATIVE); URINE LEUK ESTERASE NEGATIVE (NEGATIVE); URINE NITRITE NEGATIVE (NEGATIVE); URINE PROTEIN 2+ (NEGATIVE)
[2018-08-19 00:26] LABS: EPI CELLS RARE /HPF (FEW); URINE MUCUS RARE
[2018-08-19] MEDS: diazePAM 5 MG TABLET PO SCH ×3 (06:06→22:23)
[2018-08-19] MEDS: PRENATAL VITAMINS W/ FOLIC ACID TABLET (FP) PO SCH (10:12)
[2018-08-19] MEDS: NICOTINE 21 MG/24 HOURS TOPICAL PATCH TD SCH (10:13)
[2018-08-19] MEDS: ASPIRIN COATED 81 MG TABLET.EC PO SCH (10:13)
[2018-08-19] MEDS: NICOTINE POLACRILEX 2 MG GUM BUC PRN (10:13)
[2018-08-19] MEDS: TAMSULOSIN HCL 0.4 MG CAP PO SCH (10:13)
[2018-08-19] MEDS: amLODIPine BESYLATE 10 MG TABLET (FP) PO SCH (10:13)
[2018-08-19] MEDS: HYDROCORTISONE 1% TOPICAL CREAM 30 GM TUBE TP SCH ×2 (10:13→23:03)
[2018-08-19] MEDS: valACYclovir HCL 500 MG TABLET (FP) PO SCH ×2 (10:13→22:23)
--- NOTE | 2018-08-19 12:09 | PN ---
[facility] CIWA - CIWA Score Nausea/Vomitin-No Nausea/No Vomiting Muscle Tremors: 3 Anxiety: 3 Agitation: 3 Paroxysmal Sweats: 2 Orientation: 0-Oriented Tacttile Disturbances: 0-None Auditory Disturbances: 0-None Visual Disturbances: 0-None Headache: 0-None Present CIWA-Ar Total Score: 11 S Progress Note (SOAP) Subjective: low back pain sweats shakes interrupted sleep anxiety Objective: 08/19/18 12:08 Vital Signs Temperature 98.1 F 08/19/18 09:36 Pulse Rate 76 08/19/18 09:36 Respiratory Rate 18 08/19/18 09:36 Blood Pressure 142/91 08/19/18 09:36 O2 Sat by Pulse Oximetry (%) Laboratory Tests 08/18/18 08/19/18 22:00 05:40 Urine Color Yellow Urine Appearance Clear Urine pH 6.0 Ur Specific [place] 1.019 Urine Protein 2+ H Urine Glucose (UA) Negative Urine Ketones Negative Urine Blood Negative Urine Nitrite Negative Urine Bilirubin Negative Urine Urobilinogen 2.0 Ur Leukocyte Esterase Negative Urine WBC (Auto) 2 Urine RBC (Auto) <1 Ur Epithelial Cells Rare Urine Mucus Rare RPR Titer Nonreactive rest of labs pending aaox3 ambulating no acute distress Assessment: 08/19/18 12:08 withdrawal sx Plan: continue detox increase fluids lidocaine patch ordered
[2018-08-19 12:13] LABS: HEMATOCRIT 43.9 % (35.4-49); HEMOGLOBIN 14.4 GM/dL (11.7-16.9); MCH 29.8 pg (25.7-33.7); MCHC 32.7 g/dl (32.0-35.9); MEAN CELL VOLUME 91.1 fl (80-96); MEAN PLT VOLUME 9.8 fl (7.5-11.1); PLATELET COUNT 248 K/MM3 (134-434); RBC 4.82 M/mm3 (4.00-5.60); WHITE BLOOD COUNT 7.4 K/mm3 (4.0-10.0)
[2018-08-19 12:17] LABS: ALBUMIN 3.4 g/dl (3.4-5.0); ALK PHOS 93 U/L (45-117); ANION GAP 7 MMOL/L (8-16); BILIRUBIN,TOTAL 0.9 mg/dL (0.2-1); BLOOD UREA NITROGEN 25 mg/dL (7-18); CALCIUM 8.7 mg/dL (8.5-10.1); CHLORIDE 102 mmol/L (98-107); CO2 29 mmol/L (21-32); CREATININE 1.4 mg/dL (0.55-1.3); GLUCOSE,RANDOM 126 mg/dL (74-106); POTASSIUM 3.9 mmol/L (3.5-5.1); SGOT/AST 62 U/L (15-37); SGPT/ALT 51 U/L (13-61); SODIUM 138 mmol/L (136-145); TOT PROT 7.9 g/dl (6.4-8.2)
[2018-08-19] MEDS ORDERED: LIDOCAINE 5% TOPICAL PATCH TP ONE (13:00)
[2018-08-19] MEDS ORDERED: cloNIDine HCL 0.1 MG TABLET PO ONE (13:15)
--- NOTE | 2018-08-19 13:58 | CONSULT ---
[facility] Psychiatric Consult - Data Date of interview: 08/19/18 Admission source: [facility] Identifying data: One of multiple admissions to [facility] for this 58 y/o male, self-referred for detoxification treatment (cocaine, heroin, alcohol dependence). Patient is single without children, unemployed, domiciled ( [place] setting) and supported via [employer] services. Substance Abuse History: Confirmed by patient in this interview. Details in current [facility] report : Smoking history: Current every day smoker. Have you smoked in the past 12 months: Yes. Aproximately how many cigarettes per day: 20. Cigars Per Day: 0. Hx Chewing Tobacco Use: No. Initiated information on smoking cessation: Yes. 'Breaking Loose' booklet given: 08/25/18. - Substance & Tx. History. Hx Alcohol Use: Yes. Hx Substance Use: Yes. Substance Use Type : Alcohol, Cocaine, Heroin. Hx Substance Use Treatment: Yes ([facility] to 07/19/18 completed). - Substances Abused. Heroin. Route: Inhalation. Frequency: Daily. Amount used: 5 BAGS. Age of first use: 25. Date of Last Use : 08/14/18. Alcohol. Route: Oral. Frequency: Daily. Amount used: 1 PINT VODKA. Age of first use: 20. Date of Last Use: 08/18/18. Crack. Route: Smoking. Frequency: Daily. Amount used: $100 AND UP. Age of first use: 34. Date of Last Use: 08/17/18 Medical History: Dyslipidemia, antecedent of surgical intervention for laceration of right wrist (1983), HIV infection since 1985 (on medications), herpes genitalis, bronchial asthma, hypertension, cirrhosis of liver, hepatitis C and BPH (benign prostatic hyperplasia). Past history of treatment for gonorrhea. Psychiatric History: Hiistory of multiple psychiatric hospitalizations ([facility], [facility], [facility]). Patient has been diagnosed with Bipolar Disorder and ADHD (age 9). Mr Up declares that he is still maintained on seroquel 300 mg/hs. Sees a psychiatrist at the [facility] in [facility]. Known for a chronic history of non- adherence to OPD care + psychotropic medications. History of multiple suicide attempts via various means which includes wrist-cutting (1983,2011), overdose with pills and deliberate confrontations with [employer]. Physical/Sexual Abuse/Trauma History: Not discussed. Patient declines. Additional Comment: Urine Drug Screen Results: ANGIE-Cocaine. Noted Mental Status Exam - Mental Status Exam Alert and Oriented to: Time, Place, Person Cognitive Function: Good Patient Appearance: Unkempt, Disheveled (covered with tattoos : arms, forearms, neck ) Mood: Withdrawn, Apprehensive, Hopeful Affect: Mood Congruent Patient Behavior: Fatigued, Cooperative Speech Pattern: Clear, Appropriate Voice Loudness: Normal Thought Process: Goal Oriented Thought Disorder: Not Present Hallucinations: Denies Suicidal Ideation: Denies Homicidal Ideation: Denies Insight/Judgement: Poor Sleep: Poorly, Difficulty falling asleep Appetite: Good Muscle strength/Tone: Normal Gait/Station: Normal Psychiatric Findings - Problem List ([place] 1, 2,3) (1) Alcohol dependence with uncomplicated withdrawal Current Visit: Yes Status: Acute (2) Opioid dependence with withdrawal Current Visit: Yes Status: Chronic (3) Cocaine dependence Current Visit: Yes Status: Acute Qualifiers: Substance use status: uncomplicated Qualified Code(s): F14.20 - Cocaine dependence, uncomplicated (4) Nicotine dependence Current Visit: No Status: Chronic Qualifiers: Nicotine product type: cigarettes Substance use status: uncomplicated Qualified Code(s): F17.210 - Nicotine dependence, cigarettes, uncomplicated (5) Substance induced mood disorder Current Visit: Yes Status: Acute (6) Insomnia Current Visit: Yes Status: Acute Qualifiers: Insomnia type: primary Qualified Code(s): F51.01 - Primary insomnia (7) Non-compliant patient Current Visit: Yes Status: Acute - Initial Treatment Plan Initial Treatment Plan: Psychoeducation. Sleep hygiene. Detoxification in progress. AA/NA meetings. Seroquel 200 mg po hs. Side effects/benefits discussed with the patient. Mr Up is in agreement with this careplan. Observation.
[2018-08-19] MEDS: cloNIDine HCL 0.1 MG TABLET PO SCH (22:23)
[2018-08-19] MEDS: QUEtiapine FUMARATE 200 MG TABLET PO SCH (22:23)
[2018-08-19] MEDS: MELATONIN 5 MG TABLETS PO PRN (22:23)
[2018-08-19] MEDS: THIAMINE HCL 100 MG TABLET (FP) PO SCH (22:23)
[2018-08-19] MEDS: LIDOCAINE PATCH REMOVAL MC SCH (22:23)
[2018-08-19] MEDS: ACETAMINOPHEN 325 MG TABLET (FP) PO PRN (22:26)
[2018-08-20] MEDS: TAMSULOSIN HCL 0.4 MG CAP PO SCH (09:30)
[2018-08-20] MEDS: amLODIPine BESYLATE 10 MG TABLET (FP) PO SCH (10:15)
[2018-08-20] MEDS: PRENATAL VITAMINS W/ FOLIC ACID TABLET (FP) PO SCH (10:15)
[2018-08-20] MEDS: valACYclovir HCL 500 MG TABLET (FP) PO SCH ×2 (10:15→22:18)
[2018-08-20] MEDS: ASPIRIN COATED 81 MG TABLET.EC PO SCH (10:15)
[2018-08-20] MEDS: cloNIDine HCL 0.1 MG TABLET PO SCH ×2 (10:16→22:18)
[2018-08-20] MEDS: NICOTINE 21 MG/24 HOURS TOPICAL PATCH TD SCH (10:16)
[2018-08-20] MEDS: HYDROCORTISONE 1% TOPICAL CREAM 30 GM TUBE TP SCH ×2 (10:16→23:10)
[2018-08-20] MEDS: LIDOCAINE 5% TOPICAL PATCH TP SCH (10:17)
[2018-08-20] MEDS: diazePAM 5 MG TABLET PO SCH ×2 (10:18→22:18)
--- NOTE | 2018-08-20 10:25 | PN ---
[facility] CIWA - CIWA Score Nausea/Vomitin-No Nausea/No Vomiting Muscle Tremors: 2 Anxiety: 1-Mildly Anxious Agitation: 1-Slight > Activity Paroxysmal Sweats: 1-Minimal Palms Moist Orientation: 1-Uncertain about Date Tacttile Disturbances: 1-Very Mild Itch/Numbness Auditory Disturbances: 1-Very Mild Visual Disturbances: 0-None Headache: 1-Very Mild CIWA-Ar Total Score: 9 S Progress Note (SOAP) Subjective: sore throat x 3-4 days oral white spots peel off history of HIV none adherence with genyoya feeling less withdrawal from benzo and alcohol but has sore throat feeling weak and low energy Objective: 08/20/18 10:28 Vital Signs Temperature 97.3 F L 08/20/18 09:31 Pulse Rate 70 08/20/18 09:31 Respiratory Rate 16 08/20/18 09:31 Blood Pressure 131/75 08/20/18 09:31 O2 Sat by Pulse Oximetry (%) Laboratory Last Values WBC 7.4 K/mm3 (4.0-10.0) 08/19/18 05:40 RBC 4.82 M/mm3 (4.00-5.60) 08/19/18 05:40 Hgb 14.4 GM/dL (11.7-16.9) 08/19/18 05:40 Hct 43.9 % (35.4-49) 08/19/18 05:40 MCV 91.1 fl (80-96) 08/19/18 05:40 MCH 29.8 pg (25.7-33.7) 08/19/18 05:40 MCHC 32.7 g/dl (32.0-35.9) 08/19/18 05:40 RDW 14.0 % (11.9-15.9) 08/19/18 05:40 Plt Count 248 K/MM3 (134-434) 08/19/18 05:40 MPV 9.8 fl (7.5-11.1) 08/19/18 05:40 Sodium 138 mmol/L (136-145) 08/19/18 05:40 Potassium 3.9 mmol/L (3.5-5.1) 08/19/18 05:40 Chloride 102 mmol/L (98-107) 08/19/18 05:40 Carbon Dioxide 29 mmol/L (21-32) 08/19/18 05:40 Anion Gap 7 MMOL/L (8-16) L 08/19/18 05:40 BUN 25 mg/dL (7-18) H 08/19/18 05:40 Creatinine 1.4 mg/dL (0.55-1.3) H 08/19/18 05:40 Creat Clearance w eGFR 52.42 (>60) 08/19/18 05:40 Random Glucose 126 mg/dL (74-106) H 08/19/18 05:40 Calcium 8.7 mg/dL (8.5-10.1) 08/19/18 05:40 Total Bilirubin 0.9 mg/dL (0.2-1) 08/19/18 05:40 AST 62 U/L (15-37) H 08/19/18 05:40 ALT 51 U/L (13-61) 08/19/18 05:40 Alkaline Phosphatase 93 U/L (45-117) 08/19/18 05:40 Total Protein 7.9 g/dl (6.4-8.2) 08/19/18 05:40 Albumin 3.4 g/dl (3.4-5.0) 08/19/18 05:40 Urine Color Yellow 08/18/18 22:00 Urine Appearance Clear 08/18/18 22:00 Urine pH 6.0 (5.0-8.0) 08/18/18 22:00 Ur Specific [place] 1.019 (1.010-1.035) 08/18/18 22:00 Urine Protein 2+ (NEGATIVE) H 08/18/18 22:00 Urine Glucose (UA) Negative (NEGATIVE) 08/18/18 22:00 Urine Ketones Negative (NEGATIVE) 08/18/18 22:00 Urine Blood Negative (NEGATIVE) 08/18/18 22:00 Urine Nitrite Negative (NEGATIVE) 08/18/18 22:00 Urine Bilirubin Negative (<2.0 mg/dL) 08/18/18 22:00 Urine Urobilinogen 2.0 mg/dL (0.2-1.0) 08/18/18 22:00 Ur Leukocyte Esterase Negative (NEGATIVE) 08/18/18 22:00 Urine WBC (Auto) 2 /hpf (3-5) 08/18/18 22:00 Urine RBC (Auto) <1 /hpf (0-3) 08/18/18 22:00 Ur Epithelial Cells Rare /HPF (FEW) 08/18/18 22:00 Urine Mucus Rare 08/18/18 22:00 RPR Titer Nonreactive (NONREACTIVE) 08/19/18 05:40 lab noted Assessment: 08/20/18 10:30 withdrawal sx candidas oropharangeal Plan: continue detox fluconazole 400 mg x 1 fluconazone 200 mg po daily x14 days strong recommend follow up with ID
[2018-08-20] MEDS ORDERED: FLUCONAZOLE 100 MG TABLET (UD) PO ONE (10:30)
[2018-08-20] MEDS: ACETAMINOPHEN 325 MG TABLET (FP) PO PRN (18:44)
[2018-08-20] MEDS: THIAMINE HCL 100 MG TABLET (FP) PO SCH (22:18)
[2018-08-20] MEDS: QUEtiapine FUMARATE 200 MG TABLET PO SCH (22:18)
[2018-08-20] MEDS: LIDOCAINE PATCH REMOVAL MC SCH (23:10)
[2018-08-21] MEDS ORDERED: CLOTRIMAZOLE 10 MG TROCHE (FP) PO ONE (10:08)
[2018-08-21] MEDS: ASPIRIN COATED 81 MG TABLET.EC PO SCH (10:11)
[2018-08-21] MEDS: NICOTINE 21 MG/24 HOURS TOPICAL PATCH TD SCH (10:11)
[2018-08-21] MEDS: PRENATAL VITAMINS W/ FOLIC ACID TABLET (FP) PO SCH (10:11)
[2018-08-21] MEDS: TAMSULOSIN HCL 0.4 MG CAP PO SCH (10:11)
[2018-08-21] MEDS: amLODIPine BESYLATE 10 MG TABLET (FP) PO SCH (10:11)
[2018-08-21] MEDS: valACYclovir HCL 500 MG TABLET (FP) PO SCH ×2 (10:11→22:07)
[2018-08-21] MEDS: diazePAM 5 MG TABLET PO SCH ×2 (10:12→22:07)
[2018-08-21] MEDS: cloNIDine HCL 0.1 MG TABLET PO SCH ×2 (10:12→22:06)
[2018-08-21] MEDS: HYDROCORTISONE 1% TOPICAL CREAM 30 GM TUBE TP SCH ×2 (10:14→22:07)
[2018-08-21] MEDS: LIDOCAINE 5% TOPICAL PATCH TP SCH (10:14)
--- NOTE | 2018-08-21 10:45 | PN ---
[facility] Progress Note (SOAP) Subjective: tongue has white stuff on it sweats irritable Objective: 08/21/18 10:45 Vital Signs Temperature 96.3 F L 08/21/18 09:11 Pulse Rate 89 08/21/18 09:11 Respiratory Rate 18 08/21/18 09:11 Blood Pressure 151/80 08/21/18 09:11 O2 Sat by Pulse Oximetry (%) aaox3 ambulating no acute distress Assessment: 08/21/18 10:46 oral thrush noted pt states it bothers to swallow withdrawals noted Plan: continue detox mycelex troches ordered d/c in am
[2018-08-21 11:18] LABS: ALBUMIN 2.9 g/dl (3.4-5.0); ALK PHOS 112 U/L (45-117); ANION GAP 8 MMOL/L (8-16); BILIRUBIN,TOTAL 0.2 mg/dL (0.2-1); BLOOD UREA NITROGEN 30 mg/dL (7-18); CALCIUM 8.3 mg/dL (8.5-10.1); CHLORIDE 108 mmol/L (98-107); CO2 24 mmol/L (21-32); CREATININE 1.1 mg/dL (0.55-1.3); GLUCOSE,RANDOM 89 mg/dL (74-106); POTASSIUM 4.1 mmol/L (3.5-5.1); SGOT/AST 18 U/L (15-37); SGPT/ALT 36 U/L (13-61); SODIUM 140 mmol/L (136-145)
[2018-08-21] MEDS: FLUCONAZOLE 100 MG TABLET (UD) PO SCH (11:38)
[2018-08-21] MEDS: CLOTRIMAZOLE 10 MG TROCHE (FP) PO SCH ×3 (14:56→22:06)
[2018-08-21] MEDS: THIAMINE HCL 100 MG TABLET (FP) PO SCH (22:06)
[2018-08-21] MEDS: LIDOCAINE PATCH REMOVAL MC SCH (22:07)
[2018-08-21] MEDS: QUEtiapine FUMARATE 200 MG TABLET PO SCH (22:07)
[2018-08-22] MEDS: CLOTRIMAZOLE 10 MG TROCHE (FP) PO SCH ×2 (07:46→11:30)
--- NOTE | 2018-08-22 09:09 | DS ---
[facility] Detox Discharge Summary Admission Date: 08/18/18 Discharge Date: 08/22/18 - History Present History: Alcohol Dependence, Cannabis Dependence, Cocaine Dependence, Opioid Dependence - Physical Exam Results Vital Signs: Vital Signs Temperature 96.8 F L 08/22/18 07:28 Pulse Rate 70 08/22/18 07:28 Respiratory Rate 16 08/22/18 07:28 Blood Pressure 134/84 08/22/18 07:28 O2 Sat by Pulse Oximetry (%) - Treatment Hospital Course: Detox Protocol Followed, Detoxed Safely, Responded well, Discharged Condition Good, Rehab Referral Accepted - Medication Discharge Medications: Ambulatory Orders Elviteg/Cob/Emtri/Tenof Alafen [Genvoya (Non-Formulary)] 1 each PO DAILY #30 tablet 10/31/17 Quetiapine Fumarate [Seroquel -] 300 mg PO BID #60 tablet 04/23/18 Albuterol Sulfate Inhaler - [Ventolin HFA Inhaler -] 2 puff IH Q4H PRN #1 inhaler 08/22/18 Amlodipine Besylate [Norvasc -] 10 mg PO DAILY #30 tablet 08/22/18 Aspirin Coated [Ecotrin -] 81 mg PO DAILY #30 tablet.ec 08/22/18 Clotrimazole [Mycelex -] 10 mg PO 5XD #90 aidee 08/22/18 Fluconazole [Diflucan -] 200 mg PO DAILY #30 tablet 08/22/18 Fluticasone/Salmeterol [Advair 250-50 Diskus] 1 each IH DAILY #1 blst.w.dev Sulfamethoxazole/Trimethoprim [Bactrim DS -] 1 each PO BID #14 tablet 08/22/18 Tamsulosin HCl [Flomax -] 0.4 mg PO DAILY@0830 #30 cap.er.24h 08/22/18 Valacyclovir HCl [Valtrex -] 500 mg PO BID #60 tablet 08/22/18 - Diagnosis (1) Contact dermatitis Current Visit: Yes Status: Chronic Qualifiers: Contact dermatitis type: unspecified Contact dermatitis trigger: unspecified trigger Qualified Code(s): L25.9 - Unspecified contact dermatitis , unspecified cause (2) Weight loss Current Visit: Yes Status: Acute (3) Alcohol dependence with uncomplicated withdrawal Current Visit: Yes Status: Chronic (4) Insomnia Current Visit: Yes Status: Acute Qualifiers: Insomnia type: primary Qualified Code(s): F51.01 - Primary insomnia (5) Marijuana dependence Current Visit: No Status: Acute (6) Opioid dependence with withdrawal Current Visit: Yes Status: Chronic (7) Substance induced mood disorder Current Visit: Yes Status: Acute (8) Substance induced mood disorder Current Visit: No Status: Acute (9) UTI (urinary tract infection), uncomplicated Current Visit: No Status: Acute (10) AIDS (acquired immune deficiency syndrome) Current Visit: No Status: Chronic (11) Anemia Current Visit: No Status: Chronic Qualifiers: Anemia type: unspecified type Qualified Code(s): D64.9 - Anemia, unspecified (12) Anxiety Current Visit: No Status: Chronic (13) Asthma Current Visit: No Status: Chronic Qualifiers: Asthma severity: mild Asthma persistence: unspecified Asthma complication type: uncomplicated Qualified Code(s): J45.909 - Unspecified asthma, uncomplicated (14) BPH (benign prostatic hypertrophy) Current Visit: No Status: Chronic Qualifiers: Lower urinary tract symptom presence: symptoms absent Qualified Code(s): N40.0 - Benign prostatic hyperplasia without lower urinary tract symptoms (15) Bipolar 1 disorder Current Visit: No Status: Chronic (16) Chronic back pain Current Visit: No Status: Chronic Qualifiers: Back pain location: low back pain Back pain laterality: unspecified (17) Cirrhosis of liver Current Visit: No Status: Chronic Qualifiers: Hepatic cirrhosis type: unspecified hepatic cirrhosis Ascites presence: without ascites Qualified Code(s): K74.60 - Unspecified cirrhosis of liver (18) Cocaine dependence Current Visit: Yes Status: Acute Qualifiers: Substance use status: uncomplicated Qualified Code(s): F14.20 - Cocaine dependence, uncomplicated (19) HIV (human immunodeficiency virus infection) Current Visit: No Status: Chronic (20) Hepatitis C Current Visit: No Status: Chronic Qualifiers: Viral hepatitis chronicity: chronic Hepatic coma status: without hepatic coma Qualified Code(s): B18.2 - Chronic viral hepatitis C (21) Hypercholesterolemia Current Visit: No Status: Chronic (22) Hypertension Current Visit: No Status: Chronic Qualifiers: Hypertension type: essential hypertension Qualified Code(s): I10 - Essential (primary) hypertension (23) Nicotine dependence Current Visit: Yes Status: Chronic Qualifiers: Nicotine product type: cigarettes Substance use status: uncomplicated Qualified Code(s): F17.210 - Nicotine dependence, cigarettes, uncomplicated (24) Psoriasiform seborrheic dermatitis Current Visit: No Status: Chronic (25) Rash of face Current Visit: No Status: Chronic (26) Schizoaffective disorder Current Visit: No Status: Chronic Qualifiers: Schizoaffective disorder type: bipolar Qualified Code(s): F25.0 - Schizoaffective disorder, bipolar type (27) Substance-induced sleep disorder Current Visit: No Status: Chronic (28) Depression Current Visit: No Status: Suspected Qualifiers: Depression Type: unspecified Qualified Code(s): F32.9 - Major depressive disorder, single episode, unspecified (29) Mood disorder Current Visit: No Status: Suspected (30) Substance-induced sleep disorder Current Visit: No Status: Suspected (31) Bipolar II disorder Current Visit: Yes Status: Chronic - AMA Did Patient Leave Against Medical Advice: No (referred to [facility])
[2018-08-22 09:33] VITALS: BP 134/85; PULSE 100; TEMP 97.2
[2018-08-22] MEDS ORDERED: diazePAM 5 MG TABLET PO SCH (10:00)
[2018-08-22] MEDS ORDERED: SULFAMETHOXAZOLE/TRIMETHOPRIM 800MG/160MG D.S. TABLET PO SCH (10:00)
[2018-08-22] MEDS: cloNIDine HCL 0.1 MG TABLET PO SCH (11:29)
[2018-08-22] MEDS: FLUCONAZOLE 100 MG TABLET (UD) PO SCH (11:29)
[2018-08-22] MEDS: TAMSULOSIN HCL 0.4 MG CAP PO SCH (11:29)
[2018-08-22] MEDS: ASPIRIN COATED 81 MG TABLET.EC PO SCH (11:30)
[2018-08-22] MEDS: valACYclovir HCL 500 MG TABLET (FP) PO SCH (11:30)
[2018-08-22] MEDS: amLODIPine BESYLATE 10 MG TABLET (FP) PO SCH (11:30)
[2018-08-22] MEDS: NICOTINE 21 MG/24 HOURS TOPICAL PATCH TD SCH (11:33)
[2018-08-22] MEDS: HYDROCORTISONE 1% TOPICAL CREAM 30 GM TUBE TP SCH (11:33)
[2018-08-22] MEDS: LIDOCAINE 5% TOPICAL PATCH TP SCH (11:33)
[2018-08-22] MEDS: PRENATAL VITAMINS W/ FOLIC ACID TABLET (FP) PO SCH (11:33)
== END 2018-08-22 12:50 | disposition home or self-care (01) | DRG 773 ==
LOC: YASAS 10:24 → Y6N 11:31
PROVIDERS: ADMIT Neuromusculoskeletal Medicine & OMM; ATTEND Neuromusculoskeletal Medicine & OMM
PROC: HZ2ZZZZ Detoxification Services for Substance Abuse Treatment (ICD-10-PCS; principal; 2018-08-18)
DX: F11.23 Opioid dependence with withdrawal (principal); F10.230 Alcohol dependence with withdrawal, uncomplicated; F14.20 Cocaine dependence, uncomplicated; F12.20 Cannabis dependence, uncomplicated; F17.210 Nicotine dependence, cigarettes, uncomplicated; F19.24 Other psychoactive substance dependence with psychoactive substance-induced mood disorder; F19.282 Other psychoactive substance dependence with psychoactive substance-induced sleep disorder; F41.9 Anxiety disorder, unspecified; F31.81 Bipolar II disorder; F32.9 Major depressive disorder, single episode, unspecified; I10 Essential (primary) hypertension; B20 Human immunodeficiency virus [HIV] disease; D64.9 Anemia, unspecified; J45.909 Unspecified asthma, uncomplicated; N40.0 Benign prostatic hyperplasia without lower urinary tract symptoms; M54.5 Low back pain; G89.29 Other chronic pain; K74.60 Unspecified cirrhosis of liver; B18.2 Chronic viral hepatitis C; B37.0 Candidal stomatitis; E78.00 Pure hypercholesterolemia, unspecified; R21 Rash and other nonspecific skin eruption; L21.9 Seborrheic dermatitis, unspecified; L25.9 Unspecified contact dermatitis, unspecified cause; Z91.14 Patient's other noncompliance with medication regimen; B00.9 Herpesviral infection, unspecified; Z91.5 Personal history of self-harm
CPT/HCPCS: 36415; 80053; 81003; 81015; 85027; 86593; J0735

== ENCOUNTER 2018-09-25 12:32 | Inpatient (IN) | payer OTHER ==
[2018-09-25 12:41] VITALS: BMI 23.1
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
[2018-09-25] MEDS ORDERED: MENTHOL/PHENOL 1 EACH UD MM PRN (14:50)
[2018-09-25] MEDS ORDERED: MAG HYDROX/AL HYDROX/SIMETH 30 ML UNIT-DOSE CUP PO PRN (14:50)
[2018-09-25] MEDS ORDERED: LOPERAMIDE HCL 2 MG CAPSULE PO PRN (14:50)
[2018-09-25] MEDS ORDERED: P-EPHED 60MG/TRIPROLIDI 2.5MG TABLET PO PRN (14:50)
[2018-09-25] MEDS ORDERED: MAGNESIUM HYDROX 2400MG/30ML ORAL SUSPENSION 30 ML CUP PO PRN (14:50)
[2018-09-25] MEDS ORDERED: guaiFENesin/D-METHORPHAN HB 10 ML UNIT-DOSE CUPS PO PRN (14:50)
[2018-09-25] MEDS ORDERED: MAGNESIUM CITRATE 300 ML BOTTLE PO PRN (14:50)
[2018-09-25] MEDS ORDERED: NICOTINE POLACRILEX 4 MG GUM BUC PRN (14:50)
[2018-09-25] MEDS ORDERED: ACETAMINOPHEN 325 MG TABLET (FP) PO PRN (14:50)
[2018-09-25] MEDS: THIAMINE HCL 100 MG TABLET (FP) PO SCH (21:38)
[2018-09-25] MEDS: hydrOXYzine PAMOATE 50 MG CAPSULE (FP) PO PRN (21:39)
[2018-09-25] MEDS: MELATONIN 5 MG TABLETS PO PRN (21:39)
[2018-09-25] MEDS: IBUPROFEN 400 MG TABLET (FP) PO PRN (21:39)
[2018-09-25 23:31] LABS: URINE APPEARANCE TURBID; URINE BILIRUBIN NEGATIVE (<2.0 mg/dL); URINE COLOR YELLOW; URINE GLUCOSE (UA) NEGATIVE (NEGATIVE); URINE KETONE NEGATIVE (NEGATIVE); URINE LEUK ESTERASE NEGATIVE (NEGATIVE); URINE NITRITE NEGATIVE (NEGATIVE); URINE PROTEIN 1+ (NEGATIVE)
[2018-09-25 23:55] LABS: EPI CELLS RARE /HPF (FEW); URINE MUCUS FEW
[2018-09-26] MEDS: PRENATAL VITAMINS W/ FOLIC ACID TABLET (FP) PO SCH (10:27)
[2018-09-26] MEDS: NICOTINE 21 MG/24 HOURS TOPICAL PATCH TD SCH (10:27)
[2018-09-26 11:22] LABS: ALK PHOS 146 U/L (45-117); ANION GAP 8 MMOL/L (8-16); BILIRUBIN,TOTAL 0.2 mg/dL (0.2-1); BLOOD UREA NITROGEN 26 mg/dL (7-18); CHLORIDE 107 mmol/L (98-107); CO2 25 mmol/L (21-32); CREATININE 1.1 mg/dL (0.55-1.3); GLUCOSE,RANDOM 108 mg/dL (74-106); POTASSIUM 3.5 mmol/L (3.5-5.1); SGOT/AST 23 U/L (15-37); SGPT/ALT 37 U/L (13-61); SODIUM 140 mmol/L (136-145)
[2018-09-26 11:37] LABS: HEMATOCRIT 40.4 % (35.4-49); HEMOGLOBIN 13.2 GM/dL (11.7-16.9); MCH 29.8 pg (25.7-33.7); MCHC 32.7 g/dl (32.0-35.9); MEAN CELL VOLUME 91.1 fl (80-96); MEAN PLT VOLUME 9.1 fl (7.5-11.1); PLATELET COUNT 194 K/MM3 (134-434); RBC 4.43 M/mm3 (4.00-5.60); RDW 15.1 % (11.9-15.9); WHITE BLOOD COUNT 6.2 K/mm3 (4.0-10.0)
--- NOTE | 2018-09-26 18:00 | PN ---
[facility] Progress Note Note: Psychiatric nurse practitioner note: Delayed note: Game Technician attempted to complete psychiatric admission with patient this morning but Mr. Up refused. Patient stated, " i take seroquel 100mg twice a day. I' m too tired to speak to you." Will order seroquel 50mg qhs. As per pharmacy claims most recent seroquel prescription was given to patient in May of 2018. Patient to be seen by unit psychiatric tomorrow morning.
[2018-09-26] MEDS: THIAMINE HCL 100 MG TABLET (FP) PO SCH (21:56)
[2018-09-26] MEDS: MELATONIN 5 MG TABLETS PO PRN (21:56)
[2018-09-26] MEDS ORDERED: QUEtiapine FUMARATE 50 MG TABLET PO SCH (22:00)
[2018-09-27] MEDS ORDERED: amLODIPine BESYLATE 10 MG TABLET (FP) PO ONE (07:27)
--- NOTE | 2018-09-27 07:36 | PN ---
[facility] Progress Note Note: history of hypertension,non compliance with medication,on norvasc 10 mgs po daily,but did not take medication, bp 165/93 no chest pain,no headache,no sob asymptomatic will give norvasc 10 mgs po now then daily bp monitoring continue rehab
[2018-09-27] MEDS: PRENATAL VITAMINS W/ FOLIC ACID TABLET (FP) PO SCH (10:22)
[2018-09-27] MEDS: NICOTINE 21 MG/24 HOURS TOPICAL PATCH TD SCH (10:23)
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
[2018-09-27] MEDS: MELATONIN 5 MG TABLETS PO PRN (21:20)
[2018-09-27] MEDS: THIAMINE HCL 100 MG TABLET (FP) PO SCH (21:20)
[2018-09-27] MEDS: hydrOXYzine PAMOATE 50 MG CAPSULE (FP) PO PRN (21:22)
[2018-09-27] MEDS: QUEtiapine FUMARATE 200 MG TABLET PO SCH (21:23)
[2018-09-27] MEDS ORDERED: HYDROCORTISONE 1% TOPICAL CREAM 30 GM TUBE TP PRN (21:38)
[2018-09-27] MEDS: SULFAMETHOXAZOLE/TRIMETHOPRIM 800MG/160MG D.S. TABLET PO SCH (23:27)
[2018-09-28] MEDS ORDERED: PT OWN MED DRAWER 7, Y5N ONE (06:22)
[2018-09-28] MEDS: TAMSULOSIN HCL 0.4 MG CAP PO SCH (08:04)
[2018-09-28] MEDS: ASPIRIN COATED 81 MG TABLET.EC PO SCH (10:26)
[2018-09-28] MEDS: PRENATAL VITAMINS W/ FOLIC ACID TABLET (FP) PO SCH (10:26)
[2018-09-28] MEDS: SULFAMETHOXAZOLE/TRIMETHOPRIM 800MG/160MG D.S. TABLET PO SCH ×2 (10:26→21:48)
[2018-09-28] MEDS: amLODIPine BESYLATE 10 MG TABLET (FP) PO SCH (10:26)
[2018-09-28] MEDS: NICOTINE 21 MG/24 HOURS TOPICAL PATCH TD SCH (10:28)
[2018-09-28] MEDS ORDERED: NICOTINE 21 MG/24 HOURS TOPICAL PATCH TD SCH (14:41)
[2018-09-28] MEDS: QUEtiapine FUMARATE 200 MG TABLET PO SCH (21:48)
[2018-09-28] MEDS: hydrOXYzine PAMOATE 50 MG CAPSULE (FP) PO PRN (21:48)
[2018-09-28] MEDS: THIAMINE HCL 100 MG TABLET (FP) PO SCH (21:49)
[2018-09-28] MEDS: IBUPROFEN 400 MG TABLET (FP) PO PRN (21:49)
[2018-09-28] MEDS: MELATONIN 5 MG TABLETS PO PRN (21:50)
[2018-09-29] MEDS: amLODIPine BESYLATE 10 MG TABLET (FP) PO SCH (09:40)
[2018-09-29] MEDS: SULFAMETHOXAZOLE/TRIMETHOPRIM 800MG/160MG D.S. TABLET PO SCH ×2 (09:40→21:24)
[2018-09-29] MEDS: PRENATAL VITAMINS W/ FOLIC ACID TABLET (FP) PO SCH (09:40)
[2018-09-29] MEDS: NICOTINE 21 MG/24 HOURS TOPICAL PATCH TD SCH (09:41)
[2018-09-29] MEDS: ASPIRIN COATED 81 MG TABLET.EC PO SCH (09:41)
[2018-09-29] MEDS: TAMSULOSIN HCL 0.4 MG CAP PO SCH (09:41)
[2018-09-29] MEDS ORDERED: NICOTINE 21 MG/24 HOURS TOPICAL PATCH TD SCH (10:00)
[2018-09-29] MEDS: valACYclovir HCL 500 MG TABLET (FP) PO SCH (21:24)
[2018-09-29] MEDS: THIAMINE HCL 100 MG TABLET (FP) PO SCH (21:24)
[2018-09-29] MEDS: MELATONIN 5 MG TABLETS PO PRN (21:24)
[2018-09-29] MEDS: hydrOXYzine PAMOATE 50 MG CAPSULE (FP) PO PRN (21:24)
[2018-09-29] MEDS: QUEtiapine FUMARATE 200 MG TABLET PO SCH (21:24)
[2018-09-30] MEDS: TAMSULOSIN HCL 0.4 MG CAP PO SCH (08:56)
[2018-09-30] MEDS: PRENATAL VITAMINS W/ FOLIC ACID TABLET (FP) PO SCH (09:56)
[2018-09-30] MEDS: valACYclovir HCL 500 MG TABLET (FP) PO SCH ×2 (09:56→21:39)
[2018-09-30] MEDS: ASPIRIN COATED 81 MG TABLET.EC PO SCH (09:56)
[2018-09-30] MEDS: SULFAMETHOXAZOLE/TRIMETHOPRIM 800MG/160MG D.S. TABLET PO SCH ×2 (09:56→21:39)
[2018-09-30] MEDS: amLODIPine BESYLATE 10 MG TABLET (FP) PO SCH (09:57)
[2018-09-30] MEDS: NICOTINE 21 MG/24 HOURS TOPICAL PATCH TD SCH (09:58)
[2018-09-30] MEDS: MELATONIN 5 MG TABLETS PO PRN (21:39)
[2018-09-30] MEDS: THIAMINE HCL 100 MG TABLET (FP) PO SCH (21:39)
[2018-09-30] MEDS: QUEtiapine FUMARATE 200 MG TABLET PO SCH (21:39)
[2018-09-30] MEDS: hydrOXYzine PAMOATE 50 MG CAPSULE (FP) PO PRN (21:39)
[2018-10-01] MEDS: TAMSULOSIN HCL 0.4 MG CAP PO SCH (08:49)
[2018-10-01] MEDS: SULFAMETHOXAZOLE/TRIMETHOPRIM 800MG/160MG D.S. TABLET PO SCH ×2 (09:49→21:28)
[2018-10-01] MEDS: PRENATAL VITAMINS W/ FOLIC ACID TABLET (FP) PO SCH (09:50)
[2018-10-01] MEDS: amLODIPine BESYLATE 10 MG TABLET (FP) PO SCH (09:50)
[2018-10-01] MEDS: valACYclovir HCL 500 MG TABLET (FP) PO SCH ×2 (09:50→21:28)
[2018-10-01] MEDS: NICOTINE 21 MG/24 HOURS TOPICAL PATCH TD SCH (09:51)
[2018-10-01] MEDS: ASPIRIN COATED 81 MG TABLET.EC PO SCH (09:51)
[2018-10-01] MEDS: THIAMINE HCL 100 MG TABLET (FP) PO SCH (21:28)
[2018-10-01] MEDS: MELATONIN 5 MG TABLETS PO PRN (21:28)
[2018-10-01] MEDS: QUEtiapine FUMARATE 200 MG TABLET PO SCH (21:28)
[2018-10-01] MEDS: hydrOXYzine PAMOATE 50 MG CAPSULE (FP) PO PRN (21:28)
[2018-10-02] MEDS: TAMSULOSIN HCL 0.4 MG CAP PO SCH (08:53)
[2018-10-02] MEDS: amLODIPine BESYLATE 10 MG TABLET (FP) PO SCH (09:53)
[2018-10-02] MEDS: valACYclovir HCL 500 MG TABLET (FP) PO SCH ×2 (09:53→21:27)
[2018-10-02] MEDS: ASPIRIN COATED 81 MG TABLET.EC PO SCH (09:53)
[2018-10-02] MEDS: NICOTINE 21 MG/24 HOURS TOPICAL PATCH TD SCH (09:53)
[2018-10-02] MEDS: SULFAMETHOXAZOLE/TRIMETHOPRIM 800MG/160MG D.S. TABLET PO SCH ×2 (09:53→21:27)
[2018-10-02] MEDS: PRENATAL VITAMINS W/ FOLIC ACID TABLET (FP) PO SCH (09:53)
[2018-10-02] MEDS: NYSTATIN 500,000 UNITS/5 ML SUSPENSION PO SCH ×2 (12:40→18:24)
[2018-10-02] MEDS: QUEtiapine FUMARATE 200 MG TABLET PO SCH (21:27)
[2018-10-02] MEDS: hydrOXYzine PAMOATE 50 MG CAPSULE (FP) PO PRN (21:27)
[2018-10-02] MEDS: THIAMINE HCL 100 MG TABLET (FP) PO SCH (21:27)
[2018-10-03] MEDS: NYSTATIN 500,000 UNITS/5 ML SUSPENSION PO SCH ×5 (00:07→23:10)
[2018-10-03] MEDS: PRENATAL VITAMINS W/ FOLIC ACID TABLET (FP) PO SCH (09:55)
[2018-10-03] MEDS: valACYclovir HCL 500 MG TABLET (FP) PO SCH ×2 (09:55→21:48)
[2018-10-03] MEDS: NICOTINE 21 MG/24 HOURS TOPICAL PATCH TD SCH (09:56)
[2018-10-03] MEDS: amLODIPine BESYLATE 10 MG TABLET (FP) PO SCH (09:56)
[2018-10-03] MEDS: SULFAMETHOXAZOLE/TRIMETHOPRIM 800MG/160MG D.S. TABLET PO SCH ×2 (09:56→21:48)
[2018-10-03] MEDS: TAMSULOSIN HCL 0.4 MG CAP PO SCH (09:56)
[2018-10-03] MEDS: ASPIRIN COATED 81 MG TABLET.EC PO SCH (09:56)
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
[2018-10-03] MEDS: QUEtiapine FUMARATE 200 MG TABLET PO SCH (21:48)
[2018-10-03] MEDS: hydrOXYzine PAMOATE 50 MG CAPSULE (FP) PO PRN (21:48)
[2018-10-03] MEDS: MELATONIN 5 MG TABLETS PO PRN (21:48)
[2018-10-03] MEDS: THIAMINE HCL 100 MG TABLET (FP) PO SCH (21:48)
[2018-10-04] MEDS: NYSTATIN 500,000 UNITS/5 ML SUSPENSION PO SCH ×4 (06:01→23:29)
[2018-10-04] MEDS: TAMSULOSIN HCL 0.4 MG CAP PO SCH (08:50)
[2018-10-04] MEDS: ASPIRIN COATED 81 MG TABLET.EC PO SCH (10:12)
[2018-10-04] MEDS: PRENATAL VITAMINS W/ FOLIC ACID TABLET (FP) PO SCH (10:12)
[2018-10-04] MEDS: SULFAMETHOXAZOLE/TRIMETHOPRIM 800MG/160MG D.S. TABLET PO SCH ×2 (10:12→21:35)
[2018-10-04] MEDS: valACYclovir HCL 500 MG TABLET (FP) PO SCH ×2 (10:12→21:35)
[2018-10-04] MEDS: amLODIPine BESYLATE 10 MG TABLET (FP) PO SCH (10:13)
[2018-10-04] MEDS: NICOTINE 21 MG/24 HOURS TOPICAL PATCH TD SCH (10:14)
[2018-10-04] MEDS: QUEtiapine FUMARATE 200 MG TABLET PO SCH (21:35)
[2018-10-04] MEDS: MELATONIN 5 MG TABLETS PO PRN (21:35)
[2018-10-04] MEDS: THIAMINE HCL 100 MG TABLET (FP) PO SCH (21:35)
[2018-10-04] MEDS: hydrOXYzine PAMOATE 50 MG CAPSULE (FP) PO PRN (21:35)
[2018-10-05] MEDS: NYSTATIN 500,000 UNITS/5 ML SUSPENSION PO SCH ×4 (06:05→23:44)
[2018-10-05] MEDS: TAMSULOSIN HCL 0.4 MG CAP PO SCH (08:49)
[2018-10-05] MEDS: NICOTINE 21 MG/24 HOURS TOPICAL PATCH TD SCH (09:49)
[2018-10-05] MEDS: amLODIPine BESYLATE 10 MG TABLET (FP) PO SCH (09:49)
[2018-10-05] MEDS: valACYclovir HCL 500 MG TABLET (FP) PO SCH ×2 (09:49→21:38)
[2018-10-05] MEDS: SULFAMETHOXAZOLE/TRIMETHOPRIM 800MG/160MG D.S. TABLET PO SCH ×2 (09:49→21:39)
[2018-10-05] MEDS: PRENATAL VITAMINS W/ FOLIC ACID TABLET (FP) PO SCH (09:49)
[2018-10-05] MEDS: ASPIRIN COATED 81 MG TABLET.EC PO SCH (09:49)
[2018-10-05] MEDS: THIAMINE HCL 100 MG TABLET (FP) PO SCH (21:38)
[2018-10-05] MEDS: QUEtiapine FUMARATE 200 MG TABLET PO SCH (21:38)
[2018-10-05] MEDS: MELATONIN 5 MG TABLETS PO PRN (21:39)
[2018-10-05] MEDS: hydrOXYzine PAMOATE 50 MG CAPSULE (FP) PO PRN (21:39)
[2018-10-06] MEDS: NYSTATIN 500,000 UNITS/5 ML SUSPENSION PO SCH ×3 (05:56→16:59)
[2018-10-06] MEDS: TAMSULOSIN HCL 0.4 MG CAP PO SCH (10:13)
[2018-10-06] MEDS: NICOTINE 21 MG/24 HOURS TOPICAL PATCH TD SCH (10:14)
[2018-10-06] MEDS: amLODIPine BESYLATE 10 MG TABLET (FP) PO SCH (10:14)
[2018-10-06] MEDS: PRENATAL VITAMINS W/ FOLIC ACID TABLET (FP) PO SCH (10:14)
[2018-10-06] MEDS: valACYclovir HCL 500 MG TABLET (FP) PO SCH ×2 (10:14→21:33)
[2018-10-06] MEDS: ASPIRIN COATED 81 MG TABLET.EC PO SCH (10:14)
[2018-10-06] MEDS: SULFAMETHOXAZOLE/TRIMETHOPRIM 800MG/160MG D.S. TABLET PO SCH ×2 (10:14→21:33)
[2018-10-06] MEDS ORDERED: PT OWN MED DRAWER 7, Y5N ONE (10:18)
[2018-10-06] MEDS: THIAMINE HCL 100 MG TABLET (FP) PO SCH (21:33)
[2018-10-06] MEDS: QUEtiapine FUMARATE 200 MG TABLET PO SCH (21:33)
[2018-10-06] MEDS: MELATONIN 5 MG TABLETS PO PRN (21:33)
[2018-10-06] MEDS: hydrOXYzine PAMOATE 50 MG CAPSULE (FP) PO PRN (21:33)
[2018-10-07] MEDS: NYSTATIN 500,000 UNITS/5 ML SUSPENSION PO SCH ×5 (00:35→23:41)
[2018-10-07] MEDS: TAMSULOSIN HCL 0.4 MG CAP PO SCH (09:29)
[2018-10-07] MEDS: amLODIPine BESYLATE 10 MG TABLET (FP) PO SCH (09:53)
[2018-10-07] MEDS: valACYclovir HCL 500 MG TABLET (FP) PO SCH ×2 (09:53→21:38)
[2018-10-07] MEDS: ASPIRIN COATED 81 MG TABLET.EC PO SCH (09:53)
[2018-10-07] MEDS: SULFAMETHOXAZOLE/TRIMETHOPRIM 800MG/160MG D.S. TABLET PO SCH ×2 (09:53→21:38)
[2018-10-07] MEDS: NICOTINE 21 MG/24 HOURS TOPICAL PATCH TD SCH (09:53)
[2018-10-07] MEDS: PRENATAL VITAMINS W/ FOLIC ACID TABLET (FP) PO SCH (09:53)
[2018-10-07] MEDS: QUEtiapine FUMARATE 200 MG TABLET PO SCH (21:38)
[2018-10-07] MEDS: THIAMINE HCL 100 MG TABLET (FP) PO SCH (21:38)
[2018-10-07] MEDS ORDERED: PT OWN MED DRAWER 7, Y5N ONE (21:39)
[2018-10-08] MEDS: NYSTATIN 500,000 UNITS/5 ML SUSPENSION PO SCH ×4 (06:08→23:01)
--- NOTE | 2018-10-08 07:20 | PN ---
Psychiatric Progress Note Vital Signs: Vital Signs Period Temp Pulse Resp BP Sys/Blank Pulse Ox Last 24 Hr 96 16-18 127/85 Date of Session: 10/08/18 Chief Complaint:: Discharge Note HPI: Patient addressing Alcohol and Cocaine Dependence comorbid with Nicotine Dependence, Schizoaffective Disorder, Substance-Induced Mood Disorder and Substance-induced Sleep Disorder ROS: Asthma, HTN, HLD, HIVV, Hep C, BPH, Cirrhosis of the Liver were medically managed Current Medications: Active Medications Generic Name Dose Route Start Last Admin Trade Name Freq PRN Reason Stop Dose Admin Acetaminophen 650 mg 09/25/18 14:50 Tylenol - PO Q4H PRN FEVER Al Hydroxide/Mg Hydroxide 30 ml 09/25/18 14:50 Mylanta Oral Suspension - PO Q6H PRN DYSPEPSIA Amlodipine Besylate 10 mg 09/28/18 10:00 10/07/18 09:53 Norvasc - PO 10 mg DAILY MAYANK Administration Aspirin 81 mg 09/28/18 10:00 10/07/18 09:53 Ecotrin - PO 81 mg DAILY MAYANK Administration Eucalyptus/Menthol/Phenol/Sorbitol 1 each 09/25/18 14:50 09/28/18 07:14 Cepastat Lozenge - MM 1 each Q4H PRN Administration SORE THROAT Guaifenesin 10 ml 09/25/18 14:50 Robitussin Dm - PO Q6H PRN COUGH Hydrocortisone 1 applic 09/27/18 21:38 09/27/18 23:27 Hytone 1% Cream - TP 1 applic Q12H PRN Administration FOR ITCHING Hydroxyzine Pamoate 50 mg 09/25/18 14:50 10/06/18 21:33 Vistaril - PO 50 mg Q4H PRN Administration AGITATION Ibuprofen 400 mg 09/25/18 14:50 09/28/18 21:49 Motrin - PO 400 mg Q6H PRN Administration Pain level 4-6 Loperamide HCl 4 mg 09/25/18 14:50 Imodium - PO Q6H PRN DIARRHEA Magnesium Citrate 300 ml 09/25/18 14:50 Citroma - PO Q48H PRN CONSTIPATION Magnesium Hydroxide 30 ml 09/25/18 14:50 Milk Of Magnesia - PO DAILY PRN CONSTIPATION Melatonin 5 mg 09/25/18 22:00 10/06/18 21:33 Melatonin PO 5 mg HS PRN Administration INSOMNIA Nicotine 21 mg 09/29/18 10:00 10/07/18 09:53 Nicoderm Patch - TD Not Given DAILY MAYANK Nicotine Polacrilex 4 mg 09/25/18 14:50 Nicorette Gum - BUC Q2H PRN NICOTINE REPLACEMENT RX Nystatin 500,000 units 10/02/18 12:00 10/08/18 06:08 Nystatin Oral Suspension - PO 500,000 units Q6HPO MAYANK Administration Multivit/Folic Acid/Iron 1 tab 09/26/18 10:00 10/07/18 09:53 Vitamins (Sjr) - PO 1 tab DAILY MAYANK Administration Pseudoephedrine/Triprolidine 1 combo 09/25/18 14:50 Actifed - PO TID PRN NASAL CONGESTION Quetiapine Fumarate 200 mg 09/27/18 22:00 10/07/18 21:38 Seroquel - PO 200 mg HS MAYANK Administration Tamsulosin HCl 0.4 mg 09/28/18 08:30 10/07/18 09:29 Flomax - PO 0.4 mg DAILY@0830 MAYANK Administration Thiamine HCl 100 mg 09/25/18 22:00 10/07/18 21:38 Vitamin B1 - PO 100 mg HS MAYANK Administration Trimethoprim/Sulfamethoxazole 1 each 09/27/18 22:00 10/07/18 21:38 Bactrim Ds - PO 1 each BID MAYANK Administration Valacyclovir HCl 500 mg 09/29/18 22:00 10/07/18 21:38 Valtrex - PO 500 mg BID MAYANK Administration Current Side Effect: No Lab tests ordered: Yes Lab tests reviewed: Yes Provider note:: Patient will complete this program on 10/09/18. He has met his treatment goals and will continue to address his issues in outpatient treatment at [facility] outpatient. Told casualty underwriter that from his participation in this program, he has learned patience is a virtue. He responded well to Seroquel 200 mg po HS. Script for 30 days supply of that medication will be electronically transmitted to [facility] at [address] [place] [address]. He is stable for discharge on 10/09/18 Total face to face time:: 35 Mental Status Exam - Mental Status Exam Alert and Oriented to: Time, Place, Person Cognitive Function: Fair Patient Appearance: Well Groomed Mood: Hopeful, Euthymic Affect: Appropriate Patient Behavior: Cooperative Speech Pattern: Clear Voice Loudness: Normal Thought Process: Intact, Goal Oriented Thought Disorder: Not Present Hallucinations: Denies Suicidal Ideation: Denies Homicidal Ideation: Denies Insight/Judgement: Fair Sleep: Fair Appetite: Good Muscle strength/Tone: Normal Gait/Station: Normal Psychiatric Treatment Plan - Problem List (1) Alcohol dependence Current Visit: Yes (2) Cocaine dependence Current Visit: Yes (3) Nicotine dependence Current Visit: Yes Qualifiers: Nicotine product type: cigarettes Substance use status: uncomplicated Qualified Code(s): F17.210 - Nicotine dependence, cigarettes, uncomplicated (4) Schizoaffective disorder Current Visit: No Qualifiers: Comment: As per self-report and old records.No compliance with OPD care. (5) Bipolar II disorder Current Visit: No (6) Substance induced mood disorder Current Visit: No (7) Substance-induced sleep disorder Current Visit: No (8) HIV (human immunodeficiency virus infection) Current Visit: Yes (9) Asthma Current Visit: Yes Qualifiers: Asthma severity: mild Asthma complication type: uncomplicated (10) BPH (benign prostatic hypertrophy) Current Visit: Yes Qualifiers: Lower urinary tract symptom presence: symptoms absent Qualified Code(s): N40.0 - Benign prostatic hyperplasia without lower urinary tract symptoms (11) Cirrhosis of liver Current Visit: Yes Qualifiers: Ascites presence: unspecified (12) Hepatitis C Current Visit: Yes Qualifiers: Viral hepatitis chronicity: chronic Hepatic coma status: without hepatic coma Qualified Code(s): B18.2 - Chronic viral hepatitis C (13) Hypercholesterolemia Current Visit: Yes (14) Hypertension Current Visit: Yes Qualifiers: Hypertension type: essential hypertension Qualified Code(s): I10 - Essential (primary) hypertension Initial treatment plan: Patient will be discharged tomorrow and referred to [facility] for outpatient treatment
[2018-10-08] MEDS: TAMSULOSIN HCL 0.4 MG CAP PO SCH (09:00)
[2018-10-08] MEDS: PRENATAL VITAMINS W/ FOLIC ACID TABLET (FP) PO SCH (09:42)
[2018-10-08] MEDS: SULFAMETHOXAZOLE/TRIMETHOPRIM 800MG/160MG D.S. TABLET PO SCH ×2 (09:42→21:38)
[2018-10-08] MEDS: ASPIRIN COATED 81 MG TABLET.EC PO SCH (09:42)
[2018-10-08] MEDS: amLODIPine BESYLATE 10 MG TABLET (FP) PO SCH (09:42)
[2018-10-08] MEDS: valACYclovir HCL 500 MG TABLET (FP) PO SCH ×2 (09:43→21:38)
[2018-10-08] MEDS: NICOTINE 21 MG/24 HOURS TOPICAL PATCH TD SCH (09:43)
[2018-10-08] MEDS ORDERED: PT OWN MED DRAWER 7, Y5N ONE ×2 (17:13→21:40)
[2018-10-08] MEDS: THIAMINE HCL 100 MG TABLET (FP) PO SCH (21:38)
[2018-10-08] MEDS: QUEtiapine FUMARATE 200 MG TABLET PO SCH (21:38)
[2018-10-09] MEDS: NYSTATIN 500,000 UNITS/5 ML SUSPENSION PO SCH (05:56)
[2018-10-09 06:43] VITALS: BP 137/85; PULSE 86; TEMP 97.4
--- NOTE | 2018-10-09 09:17 | PN ---
[facility] Progress Note Note: DISCHARGE NOTE: PATIENT COMPLETED REHAB WITHOUT ADVERSE EVENT. PATIENT MEDICALLY STABLE AND DENIES SI/HI. PATIENT TO FOLLOW UP WITH PCP VITO MULLEN AT [facility] AND TO CONTINUE WITH OUTPATIENT REHAB SERVICES AT [facility] ALL MEDICAL MEDICATIONS SENT TO [facility] LAST PRESCRIPTION IN EXTERNAL HISTORY 09/13/18. PATIENT ENCOURAGE TO ATTEND GROUP MEETINGS TO PREVENT RELAPSE AND TO FOLLOW UP WITH PCP WITHIN ONE WEEK OF D/C. Vital Signs Temperature 97.4 F L 10/09/18 06:42 Pulse Rate 86 10/09/18 06:42 Respiratory Rate 18 10/09/18 06:42 Blood Pressure 137/85 10/09/18 06:42 O2 Sat by Pulse Oximetry (%)
[2018-10-09] MEDS: amLODIPine BESYLATE 10 MG TABLET (FP) PO SCH (09:41)
[2018-10-09] MEDS: valACYclovir HCL 500 MG TABLET (FP) PO SCH (09:41)
[2018-10-09] MEDS: TAMSULOSIN HCL 0.4 MG CAP PO SCH (09:41)
[2018-10-09] MEDS: SULFAMETHOXAZOLE/TRIMETHOPRIM 800MG/160MG D.S. TABLET PO SCH (09:42)
[2018-10-09] MEDS: ASPIRIN COATED 81 MG TABLET.EC PO SCH (09:42)
[2018-10-09] MEDS: PRENATAL VITAMINS W/ FOLIC ACID TABLET (FP) PO SCH (09:42)
[2018-10-09] MEDS: NICOTINE 21 MG/24 HOURS TOPICAL PATCH TD SCH (09:44)
[2018-10-09] MEDS ORDERED: PT OWN MED DRAWER 7, Y5N ONE (09:46)
== END 2018-10-09 09:45 | disposition home or self-care (01) | DRG 772 ==
LOC: YASAS 12:32 → Y3W 14:50
PROVIDERS: ADMIT Psychiatry & Neurology Psychiatry; ATTEND Psychiatry & Neurology Psychiatry
PROC: HZ42ZZZ Group Counseling for Substance Abuse Treatment, Cognitive-Behavioral (ICD-10-PCS; principal; 2018-09-25)
DX: F10.20 Alcohol dependence, uncomplicated (principal); F14.20 Cocaine dependence, uncomplicated; F17.210 Nicotine dependence, cigarettes, uncomplicated; F31.81 Bipolar II disorder; F25.9 Schizoaffective disorder, unspecified; F19.24 Other psychoactive substance dependence with psychoactive substance-induced mood disorder; F19.282 Other psychoactive substance dependence with psychoactive substance-induced sleep disorder; F39 Unspecified mood [affective] disorder; F32.9 Major depressive disorder, single episode, unspecified; I10 Essential (primary) hypertension; J45.909 Unspecified asthma, uncomplicated; F41.9 Anxiety disorder, unspecified; B20 Human immunodeficiency virus [HIV] disease; B18.2 Chronic viral hepatitis C; B37.0 Candidal stomatitis; E78.5 Hyperlipidemia, unspecified; N40.0 Benign prostatic hyperplasia without lower urinary tract symptoms; K74.60 Unspecified cirrhosis of liver; L25.9 Unspecified contact dermatitis, unspecified cause; L30.9 Dermatitis, unspecified; Z87.438 Personal history of other diseases of male genital organs; Z91.14 Patient's other noncompliance with medication regimen; Z91.5 Personal history of self-harm
CPT/HCPCS: 36415; 80053; 81003; 81015; 85027; 86593

== ENCOUNTER 2018-11-09 11:24 | Inpatient (IN) | payer OTHER ==
[2018-11-09 11:52] VITALS: BMI 23.5
--- NOTE | 2018-11-09 14:30 | HP ---
CIWA Score Nausea/Vomitin Muscle Tremors: 3 Anxiety: 3 Agitation: 3 Paroxysmal Sweats: 2 Orientation: 0-Oriented Tacttile Disturbances: 2-Mild Itch/Numbness/Burn (b/t fingers) Auditory Disturbances: 0-None Visual Disturbances: 0-None Headache: 2-Mild CIWA-Ar Total Score: 18 - Admission Criteria OASAS Guidelines: Admission for Medically Managed Detox: Requires at least one of the followin. CIWA greater than 12 2. Seizures within the past 24 hours 3. Delirium tremens within the past 24 hours 4. Hallucinations within the past 24 hours 5. Acute intervention needed for co occurring medical disorder 6. Acute intervention needed for co occurring psychiatric disorder 7. Severe withdrawal that cannot be handled at a lower level of care (continued vomiting, continued diarrhea, abnormal vital signs) requiring intravenous medication and/or fluids 8. Patient presents the following: CIWA greater than 12 Admission Criteria Met: Admission criteria met Admission ROS S - [facility] Chief Complaint: "I'm going through divorce I need detox" Allergies/Adverse Reactions: Allergies Allergy/AdvReac Type Severity Reaction Status Date / Time chlordiazepoxide HCl Allergy Severe Rash Verified 09/25/18 14:35 [From Librium] History of Present Illness: 58 yo male with hx of alcohol, crack/cocaine and nicotine dependence is here seeking detox, this is one of multiple admissions, patient reports mandated by parole to attend. Last tx rehab at [facility] 09/25/18 -10/09/18. Reports upon completing detox wishes to attend outpatient rehab at [facility]. PMHX: HIV+( on genvoya), HTN, Asthma, BPH, Live Cirrhosis,depression, depression, schizophrenia, mood d/o. Denies suicide homicidal ideation. Denies hx of seizures, reports frequent ETOH blackouts, does not recall last episode. Longest period of sobriety five years. Exam Limitations: No Limitations - Ebola screening Have you traveled outside of the country in the last 21 days: No Have you had contact with anyone from an Ebola affected area: No Have you been sick,other than usual withdrawal symptoms: No Do you have a fever: No - Review of Systems Constitutional: Chills, Loss of Appetite, Changes in sleep, Unintentional Wgt. Loss (approx 30 lb in past three months), Other (" I feel shaky") EENT: reports: No Symptoms Reported Respiratory: reports: No Symptoms reported Cardiac: reports: No Symptoms Reported GI: reports: Diarrhea, Nausea, Poor Appetite, Poor Fluid Intake, Vomiting : reports: No Symptoms Reported Musculoskeletal: reports: Back Pain Integumentary: reports: No Symptoms Reported Neuro: reports: See HPI, Headache, Numbness Endocrine: reports: See HPI, Increased Thirst Hematology: reports: See HPI Psychiatric: reports: Orientated x3, Anxious, Depressed (reports going through divorce) Other Systems: Reviewed and Negative Patient History - Patient Medical History Hx Anemia: Yes (Not on medication) Hx Asthma: Yes (On Albuterol - Not compliant) Hx Chronic Obstructive Pulmonary Disease (COPD): No Hx Cancer: No Hx Cardiac Disorders: No Hx Congestive Heart Failure: No Hx Hypertension: Yes (Not complaint with Norvasc) Hx Hypercholesterolemia: Yes (Not on medication) Hx Pacemaker: No HX Cerebrovascular Accident: No Hx Seizures: No Hx Dementia: No Hx Diabetes: No Hx Gastrointestinal Disorders: No Hx Liver Disease: Yes (CIRRHOSIS) Hx Genitourinary Disorders: Yes (BPH) Hx Sexually Transmitted Disorders: Yes (Herpes- on Valtrex ) Hx Renal Disease (ESRD): No Hx Thyroid Disease: No Hx Human Immunodeficiency Virus (HIV): Yes (Genvoya; non compliant) Hx Hepatitis C: Yes (Treated in 2013; Completed, Uncertain if Cured.) Hx Depression: Yes Hx Suicide Attempt: Yes (2016 CUTTING WRIST) Hx Bipolar Disorder: Yes (Meds., Non-compliant ) Hx Schizophrenia: Yes - Patient Surgical History Past Surgical History: Yes Hx Neurologic Surgery: No Hx Cataract Extraction: No Hx Cardiac Surgery: No Hx Lung Surgery: No Hx Breast Surgery: No Hx Breast Biopsy: No Hx Abdominal Surgery: No Hx Appendectomy: No Hx Cholecystectomy: No Hx Genitourinary Surgery: No Hx Section: No Hx Orthopedic Surgery: No Other Surgical History: RIGHT WRIST SX in 1983 for a laceration; left wrist laceration 1977 Anesthesia Reaction: No - PPD History Previous Implant?: No Date: 07/16/18 Results: 0 mm PPD to be Administered?: Yes - Smoking Cessation Smoking history: Current every day smoker Have you smoked in the past 12 months: Yes Aproximately how many cigarettes per day: 20 Cigars Per Day: 0 Hx Chewing Tobacco Use: No Initiated information on smoking cessation: Yes 'Breaking Loose' booklet given: 11/09/18 - Substance & Tx. History Hx Alcohol Use: Yes Hx Substance Use: Yes Substance Use Type: Alcohol Hx Substance Use Treatment: Yes (Last tx rehab at [facility] 09/25/18 -10/09/18.) - Substances Abused alcohol Route: Oral Frequency: Daily Amount used: 1 pint vodka + 6 x 40 oz beer Age of first use: 17 Date of Last Use: 11/08/18 crack Route: Smoking Frequency: Daily Amount used: $200 Age of first use: 33 Date of Last Use: 11/08/18 Family Disease History - Family Disease History Family Disease History: Diabetes: Mother (HTN, .), Respiratory: Sister ( Asthma), Other: Father (addiction to heroin,), Mother Admission Physical Exam [facility] - Vital Signs Vital Signs: Vital Signs - 24 hr 11/09/18 11:49 Temperature 96.6 F L Pulse Rate 62 Respiratory 20 Rate Blood Pressure 144/80 - Physical General Appearance: Yes: Moderate Distress, Thin, Tremorous, Anxious HEENTM: Yes: EOMI, Hearing grossly Normal, Normal ENT Inspection, Normocephalic , Normal Voice, ROB, Pharynx Normal, Tm's normal, Other (dry mucus membranes) Respiratory: Yes: Chest Non-Tender, Lungs Clear, Normal Breath Sounds, No Respiratory Distress, No Accessory Muscle Use Neck: Yes: Within Normal Limits Breast: Yes: Breast Exam Deferred Cardiology: Yes: Regular Rhythm, Regular Rate Abdominal: Yes: Normal Bowel Sounds, Non Tender, Flat, Soft Genitourinary: Yes: Within Normal Limits Back: Yes: Normal Inspection Musculoskeletal: Yes: full range of Motion, Gait Steady, Pelvis Stable, Back pain Extremities: Yes: Normal Capillary Refill, Normal Inspection, Normal Range of Motion, Tremors Neurological: Yes: dinkey locomotive engineer II-XII NML intact, Fully Oriented, Alert, Motor Strength 5/5 Integumentary: Yes: Normal Color, Warm, Diaphoresis Lymphatic: Yes: Within Normal Limits - Addiitonal Findings: reports allergies to librium, reports taking Valium the past with no reaction. Patient non-compliant with medication regime, patient encourage to take medication as prescribed and to follow up with PCP upon discharge. - Diagnostic (1) Weight loss Current Visit: Yes Status: Acute (2) Asthma Current Visit: Yes Status: Chronic Qualifiers: Asthma severity: mild Asthma complication type: uncomplicated (3) BPH (benign prostatic hypertrophy) Current Visit: Yes Status: Chronic Qualifiers: Lower urinary tract symptom presence: symptoms absent Qualified Code(s): N40.0 - Benign prostatic hyperplasia without lower urinary tract symptoms (4) Cirrhosis of liver Current Visit: Yes Status: Chronic Qualifiers: Ascites presence: unspecified (5) Cocaine dependence Current Visit: Yes Status: Chronic Qualifiers: Substance use status: uncomplicated (6) HIV (human immunodeficiency virus infection) Current Visit: Yes Status: Chronic (7) Hepatitis C Current Visit: Yes Status: Chronic Qualifiers: Viral hepatitis chronicity: chronic Hepatic coma status: without hepatic coma Qualified Code(s): B18.2 - Chronic viral hepatitis C (8) Hypertension Current Visit: Yes Status: Chronic Qualifiers: Hypertension type: essential hypertension Qualified Code(s): I10 - Essential (primary) hypertension (9) Nicotine dependence Current Visit: Yes Status: Chronic Qualifiers: Nicotine product type: cigarettes Substance use status: uncomplicated Qualified Code(s): F17.210 - Nicotine dependence, cigarettes, uncomplicated Cleared for Admission [facility] - Detox or Rehab [facility] Level of Care: Medically Managed Detox Regimen/Protocol: Valium [facility] Breath Alcohol Content Breath Alcohol Content: 0 Urine Drug Screen - Results Drug Screen Negative: No Urine Drug Screen Results: [facility]-Cocaine Inpatient Rehab Admission - Rehab Decision to Admit Inpatient rehab admission?: No
[2018-11-09] MEDS ORDERED: ALBUTEROL SO4 8 GM HFA INHALER IH PRN (14:39)
[2018-11-09] MEDS ORDERED: guaiFENesin/D-METHORPHAN HB 10 ML UNIT-DOSE CUPS PO PRN (14:40)
[2018-11-09] MEDS ORDERED: P-EPHED 60MG/TRIPROLIDI 2.5MG TABLET PO PRN (14:40)
[2018-11-09] MEDS ORDERED: LOPERAMIDE HCL 2 MG CAPSULE PO PRN (14:40)
[2018-11-09] MEDS ORDERED: diazePAM 5 MG TABLET PO PRN (14:40)
[2018-11-09] MEDS ORDERED: diazePAM 5 MG TABLET PO ONE (14:40)
[2018-11-09] MEDS ORDERED: NICOTINE POLACRILEX 2 MG GUM BC PRN (14:40)
[2018-11-09] MEDS ORDERED: MAG HYDROX/AL HYDROX/SIMETH 30 ML UNIT-DOSE CUP PO PRN (14:40)
[2018-11-09] MEDS ORDERED: IBUPROFEN 400 MG TABLET (FP) PO PRN (14:40)
[2018-11-09] MEDS ORDERED: MAGNESIUM CITRATE 300 ML BOTTLE PO PRN (14:40)
[2018-11-09] MEDS ORDERED: MAGNESIUM HYDROX 2400MG/30ML ORAL SUSPENSION 30 ML CUP PO PRN (14:40)
[2018-11-09] MEDS ORDERED: MENTHOL/PHENOL 1 EACH UD MM PRN (14:40)
[2018-11-09] MEDS: MELATONIN 5 MG TABLETS PO PRN (22:08)
[2018-11-09] MEDS: BUDESONIDE/FORMETEROL FUMARATE 160/4.5 mcg INHALER IH SCH (22:08)
[2018-11-09] MEDS: valACYclovir HCL 500 MG TABLET (FP) PO SCH (22:08)
[2018-11-09] MEDS: THIAMINE HCL 100 MG TABLET (FP) PO SCH (22:08)
[2018-11-09] MEDS: diazePAM 5 MG TABLET PO SCH (22:08)
[2018-11-10] MEDS: diazePAM 5 MG TABLET PO SCH ×3 (05:17→22:06)
[2018-11-10] MEDS: TAMSULOSIN HCL 0.4 MG CAP PO SCH (07:49)
[2018-11-10] MEDS: PRENATAL VITAMINS W/ FOLIC ACID TABLET (FP) PO SCH (10:40)
[2018-11-10] MEDS: SULFAMETHOXAZOLE/TRIMETHOPRIM 800MG/160MG D.S. TABLET PO SCH (10:40)
[2018-11-10] MEDS: amLODIPine BESYLATE 10 MG TABLET (FP) PO SCH (10:40)
[2018-11-10] MEDS: ASPIRIN COATED 81 MG TABLET.EC PO SCH (10:40)
[2018-11-10] MEDS: valACYclovir HCL 500 MG TABLET (FP) PO SCH ×2 (10:40→22:06)
[2018-11-10] MEDS: NICOTINE 14 MG/24 HOURS TOPICAL PATCH TD SCH (10:41)
[2018-11-10] MEDS: BUDESONIDE/FORMETEROL FUMARATE 160/4.5 mcg INHALER IH SCH ×2 (10:41→22:07)
--- NOTE | 2018-11-10 10:48 | CONSULT ---
[facility] Psychiatric Consult - Data Date of interview: 11/10/18 Admission source: Self-referred Identifying data: Mr Up is a 58 years old male, unemployed on HASA, domiciled seeking detox treatment for alcohol and cocaine Substance Abuse History: Reports history of alcohol and crack cocaine use. Refer to addiction counselor's summary for further information Medical History: Significant for HIV infection since 1985 (on medications), bronchial asthma, hypertension, dyslipidemia, cirrhosis of liver, hepatitis C, benign prostatic hyperplasia, history of treatment for anemia, gonorrhea, herpes genitalis and surgical intervention for laceration of right wrist in 1983. Smokes cigarettes 1 ppd Psychiatric History: Patient is well known to previous encountr while admitted to this facility. He reports being diagnosed with Schizoaffective Disorder, ADHD at age 9. Reports history of multiple psychiatric hospitalizations at various institutions including [facility], [facility], [facility] and most recently in 2018 at [facility]. Reports non adherence to [employer] care but visits [facility] ED for med refills. Reports taking Seroquel 300 mg po HS and claims he has medication bottle in his property. External pharmacy record shows most recent script for Seroquel was for 200 mg prescribed by publicity writer on 10/08/18 when he was discharged from inpatient rehab in this facility. Reports history of multiple suicide attempts via various means which includes wrist-cutting (1983,2011), overdose with pills and deliberate confrontations with [employer]. At presents, reports feeling very depressed and sleeping poorly Physical/Sexual Abuse/Trauma History: Denies history of emotional, physical or sexual abuse as well as DV relationship. No service Additional Comment: Reports history of multiple arrests including 5 felony convictions. Denies being on parole/probation at present Mental Status Exam - Mental Status Exam Alert and Oriented to: Time, Place, Person Cognitive Function: Fair Patient Appearance: Disheveled Mood: Depressed Affect: Appropriate Patient Behavior: Cooperative Speech Pattern: Clear Voice Loudness: Normal Thought Process: Intact, Goal Oriented Hallucinations: Denies Suicidal Ideation: Denies Homicidal Ideation: Denies Insight/Judgement: Poor Sleep: Poorly Appetite: Poor Muscle strength/Tone: Normal Gait/Station: Normal Psychiatric Findings - Problem List ([place] 1, 2,3) (1) Schizoaffective disorder Current Visit: No Status: Chronic Qualifiers: Comment: As per self-report and old records.No compliance with [employer] care. (2) Bipolar II disorder Current Visit: No Status: Ruled-out (3) Substance induced mood disorder Current Visit: No Status: Acute (4) Substance-induced sleep disorder Current Visit: No Status: Acute (5) Alcohol dependence with uncomplicated withdrawal Current Visit: Yes Status: Acute (6) Cocaine dependence Current Visit: Yes Status: Acute (7) Nicotine dependence Current Visit: Yes Status: Chronic (8) Asthma Current Visit: Yes Status: Chronic Qualifiers: Asthma severity: mild Asthma complication type: uncomplicated (9) HIV (human immunodeficiency virus infection) Current Visit: Yes Status: Chronic (10) Hepatitis C Current Visit: Yes Status: Chronic Qualifiers: Viral hepatitis chronicity: chronic Hepatic coma status: without hepatic coma Qualified Code(s): B18.2 - Chronic viral hepatitis C (11) Hypertension Current Visit: Yes Status: Chronic Qualifiers: Hypertension type: essential hypertension Qualified Code(s): I10 - Essential (primary) hypertension (12) Hepatitis C Current Visit: Yes Status: Resolved (13) HLD (hyperlipidemia) Current Visit: Yes Status: Chronic (14) BPH (benign prostatic hypertrophy) Current Visit: Yes Status: Chronic Qualifiers: Lower urinary tract symptom presence: symptoms absent Qualified Code(s): N40.0 - Benign prostatic hyperplasia without lower urinary tract symptoms (15) Cirrhosis of liver Current Visit: Yes Status: Chronic Qualifiers: Ascites presence: unspecified - Initial Treatment Plan Initial Treatment Plan: 1) Continue Seroquel 200 mg po HS till his medication bottle can be seen. 2) Continue inpatient detoxification
--- NOTE | 2018-11-10 10:58 | PN ---
S CIWA - CIWA Score Nausea/Vomitin-No Nausea/No Vomiting Muscle Tremors: 3 Anxiety: 3 Agitation: 3 Paroxysmal Sweats: 3 Orientation: 0-Oriented Tacttile Disturbances: 0-None Auditory Disturbances: 0-None Visual Disturbances: 0-None Headache: 0-None Present CIWA-Ar Total Score: 12 [facility] Progress Note (SOAP) Subjective: sleepy sweats interrupted sleep tired Objective: 11/10/18 10:57 Vital Signs Temperature 98.0 F 11/10/18 09:22 Pulse Rate 79 11/10/18 09:22 Respiratory Rate 18 11/10/18 09:22 Blood Pressure 139/97 11/10/18 09:22 O2 Sat by Pulse Oximetry (%) labs pending aaox3 lying in bed no acute distress Assessment: 11/10/18 10:57 withdrawals sx Plan: continue detox increase fluids
[2018-11-10 11:16] LABS: HEMATOCRIT 40.9 % (35.4-49); MCH 30.9 pg (25.7-33.7); MCHC 34.1 g/dl (32.0-35.9); MEAN CELL VOLUME 90.5 fl (80-96); MEAN PLT VOLUME 8.7 fl (7.5-11.1); PLATELET COUNT 309 K/MM3 (134-434); RBC 4.52 M/mm3 (4.00-5.60); RDW 15.6 % (11.9-15.9); WHITE BLOOD COUNT 8.3 K/mm3 (4.0-10.0)
[2018-11-10 12:28] LABS: ALBUMIN 3.3 g/dl (3.4-5.0); ALK PHOS 100 U/L (45-117); ANION GAP 8 MMOL/L (8-16); BILIRUBIN,TOTAL 0.3 mg/dL (0.2-1); BLOOD UREA NITROGEN 19 mg/dL (7-18); CALCIUM 8.5 mg/dL (8.5-10.1); CHLORIDE 107 mmol/L (98-107); CO2 25 mmol/L (21-32); CREATININE 1.1 mg/dL (0.55-1.3); GLUCOSE,RANDOM 122 mg/dL (74-106); POTASSIUM 4.1 mmol/L (3.5-5.1); SGOT/AST 18 U/L (15-37); SGPT/ALT 35 U/L (13-61); SODIUM 140 mmol/L (136-145); TOT PROT 7.9 g/dl (6.4-8.2)
[2018-11-10] MEDS: QUEtiapine FUMARATE 200 MG TABLET PO SCH (22:06)
[2018-11-10] MEDS: THIAMINE HCL 100 MG TABLET (FP) PO SCH (22:06)
[2018-11-10] MEDS: MELATONIN 5 MG TABLETS PO PRN (22:07)
[2018-11-11] MEDS: TAMSULOSIN HCL 0.4 MG CAP PO SCH (08:18)
[2018-11-11] MEDS: PRENATAL VITAMINS W/ FOLIC ACID TABLET (FP) PO SCH (10:37)
[2018-11-11] MEDS: ASPIRIN COATED 81 MG TABLET.EC PO SCH (10:37)
[2018-11-11] MEDS: diazePAM 5 MG TABLET PO SCH ×2 (10:37→22:21)
[2018-11-11] MEDS: valACYclovir HCL 500 MG TABLET (FP) PO SCH ×2 (10:37→22:21)
[2018-11-11] MEDS: amLODIPine BESYLATE 10 MG TABLET (FP) PO SCH (10:37)
[2018-11-11] MEDS: SULFAMETHOXAZOLE/TRIMETHOPRIM 800MG/160MG D.S. TABLET PO SCH (10:37)
[2018-11-11] MEDS: NICOTINE 14 MG/24 HOURS TOPICAL PATCH TD SCH (10:37)
[2018-11-11] MEDS: BUDESONIDE/FORMETEROL FUMARATE 160/4.5 mcg INHALER IH SCH ×2 (10:37→22:53)
--- NOTE | 2018-11-11 13:48 | PN ---
[facility] CIWA - CIWA Score Nausea/Vomitin-Mild Nausea/No Vomiting Muscle Tremors: 1-None Visible, but [place] Anxiety: 2 Agitation: 2 Paroxysmal Sweats: 1-Minimal Palms Moist Orientation: 0-Oriented Tacttile Disturbances: 0-None Auditory Disturbances: 0-None Visual Disturbances: 0-None Headache: 2-Mild CIWA-Ar Total Score: 9 [facility] Progress Note (SOAP) Subjective: pt states still with withdrawal Sx- O: Vital Signs - 24 hr 11/10/18 11/10/18 11/11/18 17:52 22:40 01:13 Temperature 97.9 F 98.1 F Pulse Rate 64 81 Respiratory 18 18 18 Rate Blood Pressure 132/70 137/87 11/11/18 11/11/18 11/11/18 03:30 08:46 09:44 Temperature 96.1 F L 97.2 F L Pulse Rate 61 82 Respiratory 18 20 20 Rate Blood Pressure 154/92 144/87 11/11/18 13:44 Temperature 97.3 F L Pulse Rate 99 H Respiratory 18 Rate Blood Pressure 144/90 Laboratory Tests 11/10/18 11/10/18 11/10/18 06:00 06:00 06:00 WBC 8.3 RBC 4.52 Hgb 14.0 Hct 40.9 MCV 90.5 MCH 30.9 MCHC 34.1 RDW 15.6 Plt Count 309 D MPV 8.7 Sodium 140 Potassium 4.1 Chloride 107 Carbon Dioxide 25 Anion Gap 8 BUN 19 H Creatinine 1.1 Creat Clearance w eGFR > 60 Random Glucose 122 H Calcium 8.5 Total Bilirubin 0.3 AST 18 ALT 35 Alkaline Phosphatase 100 Total Protein 7.9 Albumin 3.3 L RPR Titer Nonreactive a/p: continue detox protocol, pt to use prn meds as needed
[2018-11-11] MEDS: MELATONIN 5 MG TABLETS PO PRN (22:21)
[2018-11-11] MEDS: QUEtiapine FUMARATE 200 MG TABLET PO SCH (22:21)
[2018-11-11] MEDS: THIAMINE HCL 100 MG TABLET (FP) PO SCH (22:53)
[2018-11-12] MEDS: TAMSULOSIN HCL 0.4 MG CAP PO SCH (09:25)
[2018-11-12] MEDS: valACYclovir HCL 500 MG TABLET (FP) PO SCH ×2 (10:43→22:07)
[2018-11-12] MEDS: SULFAMETHOXAZOLE/TRIMETHOPRIM 800MG/160MG D.S. TABLET PO SCH (10:43)
[2018-11-12] MEDS: ASPIRIN COATED 81 MG TABLET.EC PO SCH (10:43)
[2018-11-12] MEDS: PRENATAL VITAMINS W/ FOLIC ACID TABLET (FP) PO SCH (10:43)
[2018-11-12] MEDS: amLODIPine BESYLATE 10 MG TABLET (FP) PO SCH (10:43)
[2018-11-12] MEDS: NICOTINE 14 MG/24 HOURS TOPICAL PATCH TD SCH (10:44)
[2018-11-12] MEDS: diazePAM 5 MG TABLET PO SCH ×2 (10:45→22:07)
[2018-11-12] MEDS: BUDESONIDE/FORMETEROL FUMARATE 160/4.5 mcg INHALER IH SCH ×2 (10:45→22:07)
--- NOTE | 2018-11-12 13:04 | PN ---
[facility] Progress Note Note: PATIENT CONTINUES WITH DETOX REGIMEN. STATES HE FEEL BETTER. MILDLY ANXIOUS ABOUT LEGAL SITUATION. DENIES SWEATING, SHAKES AND N/V/D. Laboratory Tests 11/10/18 11/10/18 11/10/18 06:00 06:00 06:00 WBC 8.3 RBC 4.52 Hgb 14.0 Hct 40.9 MCV 90.5 MCH 30.9 MCHC 34.1 RDW 15.6 Plt Count 309 D MPV 8.7 Sodium 140 Potassium 4.1 Chloride 107 Carbon Dioxide 25 Anion Gap 8 BUN 19 H Creatinine 1.1 Creat Clearance w eGFR > 60 Random Glucose 122 H Calcium 8.5 Total Bilirubin 0.3 AST 18 ALT 35 Alkaline Phosphatase 100 Total Protein 7.9 Albumin 3.3 L RPR Titer Nonreactive Vital Signs Temperature 97.2 F L 11/12/18 09:35 Pulse Rate 86 11/12/18 09:35 Respiratory Rate 20 11/12/18 09:35 Blood Pressure 141/74 11/12/18 09:35 O2 Sat by Pulse Oximetry (%) PE: ALERT AND ORIENTED X 3 SKIN WARM AND DRY EXT FULL ROM, NO TREMORS AMB AD JULIANA A/P: WITHDRAWAL SX CONTINUE DETOX FOR D/C IN AM MONITOR CLINICALLY
[2018-11-12] MEDS: THIAMINE HCL 100 MG TABLET (FP) PO SCH (22:07)
[2018-11-12] MEDS: QUEtiapine FUMARATE 200 MG TABLET PO SCH (22:07)
[2018-11-13 07:09] VITALS: TEMP 96.4
--- NOTE | 2018-11-13 08:48 | DS ---
[facility] Detox Discharge Summary Admission Date: 11/09/18 Discharge Date: 11/13/18 - History Present History: Alcohol Dependence, Cocaine Dependence - Physical Exam Results Vital Signs: Vital Signs Temperature 96.4 F L 11/13/18 07:08 Pulse Rate 64 11/13/18 07:08 Respiratory Rate 18 11/13/18 07:08 Blood Pressure 118/86 11/13/18 07:08 O2 Sat by Pulse Oximetry (%) - Treatment Hospital Course: Detox Protocol Followed, Detoxed Safely, Responded well, Discharged Condition Good, Rehab Referral Accepted - Medication Discharge Medications: Ambulatory Orders Quetiapine Fumarate [Seroquel -] 300 mg PO BID #60 tablet 04/23/18 Elviteg/Cob/Emtri/Tenof Alafen [Genvoya (Non-Formulary)] 1 each PO DAILY #30 tablet 10/09/18 Sulfamethoxazole/Trimethoprim [Bactrim DS -] 1 each PO DAILY #30 tablet Albuterol Sulfate Inhaler - [Ventolin HFA Inhaler -] 2 puff IH Q4H PRN #1 inhaler 11/12/18 Amlodipine Besylate [Norvasc -] 10 mg PO DAILY #14 tablet 11/12/18 Aspirin Coated [Ecotrin -] 81 mg PO DAILY #14 tablet.ec 11/12/18 Fluticasone/Salmeterol [Advair 250-50 Diskus] 1 each IH DAILY #1 blst.w.dev Tamsulosin HCl [Flomax -] 0.4 mg PO DAILY@0830 #14 cap.er.24h 11/12/18 Valacyclovir HCl [Valtrex -] 500 mg PO BID #14 tablet 11/12/18 - Diagnosis (1) Alcohol dependence with uncomplicated withdrawal Current Visit: Yes Status: Chronic (2) Cocaine dependence Current Visit: Yes Status: Chronic Qualifiers: Substance use status: uncomplicated Qualified Code(s): F14.20 - Cocaine dependence, uncomplicated (3) Weight loss Current Visit: Yes Status: Acute (4) Asthma Current Visit: Yes Status: Chronic Qualifiers: Asthma severity: mild Asthma persistence: intermittent Asthma complication type: uncomplicated Qualified Code(s): J45.20 - Mild intermittent asthma, uncomplicated (5) BPH (benign prostatic hypertrophy) Current Visit: Yes Status: Chronic Qualifiers: Lower urinary tract symptom presence: symptoms absent Qualified Code(s): N40.0 - Benign prostatic hyperplasia without lower urinary tract symptoms (6) Cirrhosis of liver Current Visit: Yes Status: Chronic Qualifiers: Ascites presence: unspecified (7) Cocaine dependence Current Visit: Yes Status: Chronic Qualifiers: Substance use status: uncomplicated (8) HIV (human immunodeficiency virus infection) Current Visit: Yes Status: Chronic (9) HLD (hyperlipidemia) Current Visit: Yes Status: Chronic (10) Hepatitis C Current Visit: Yes Status: Chronic Qualifiers: Viral hepatitis chronicity: chronic Hepatic coma status: without hepatic coma Qualified Code(s): B18.2 - Chronic viral hepatitis C (11) Hypertension Current Visit: Yes Status: Chronic Qualifiers: Hypertension type: essential hypertension Qualified Code(s): I10 - Essential (primary) hypertension (12) Nicotine dependence Current Visit: Yes Status: Chronic Qualifiers: Nicotine product type: cigarettes Substance use status: uncomplicated Qualified Code(s): F17.210 - Nicotine dependence, cigarettes, uncomplicated (13) Hepatitis C Current Visit: Yes Status: Resolved (14) Substance induced mood disorder Current Visit: No Status: Acute (15) Substance induced mood disorder Current Visit: No Status: Acute (16) Substance-induced sleep disorder Current Visit: No Status: Acute (17) Anxiety Current Visit: No Status: Chronic (18) Bipolar 1 disorder Current Visit: No Status: Chronic (19) Cocaine dependence Current Visit: Yes Status: Chronic Qualifiers: Substance use status: uncomplicated Qualified Code(s): F14.20 - Cocaine dependence, uncomplicated (20) Contact dermatitis Current Visit: No Status: Chronic Qualifiers: Contact dermatitis type: unspecified Contact dermatitis trigger: unspecified trigger Qualified Code(s): L25.9 - Unspecified contact dermatitis , unspecified cause (21) Hypercholesterolemia Current Visit: No Status: Chronic (22) Psoriasiform seborrheic dermatitis Current Visit: Yes Status: Chronic (23) Schizoaffective disorder Current Visit: No Status: Chronic Qualifiers: (24) Substance-induced sleep disorder Current Visit: No Status: Chronic (25) Depression Current Visit: No Status: Suspected Qualifiers: (26) Mood disorder Current Visit: No Status: Suspected (27) Bipolar II disorder Current Visit: No Status: Ruled-out - AMA Did Patient Leave Against Medical Advice: No (referred to Bx ATC)
[2018-11-13 09:54] VITALS: BP 134/83; PULSE 97
[2018-11-13] MEDS ORDERED: diazePAM 5 MG TABLET PO SCH (10:00)
[2018-11-13] MEDS: SULFAMETHOXAZOLE/TRIMETHOPRIM 800MG/160MG D.S. TABLET PO SCH (10:29)
[2018-11-13] MEDS: TAMSULOSIN HCL 0.4 MG CAP PO SCH (10:29)
[2018-11-13] MEDS: valACYclovir HCL 500 MG TABLET (FP) PO SCH (10:29)
[2018-11-13] MEDS: ASPIRIN COATED 81 MG TABLET.EC PO SCH (10:29)
[2018-11-13] MEDS: amLODIPine BESYLATE 10 MG TABLET (FP) PO SCH (10:29)
[2018-11-13] MEDS: PRENATAL VITAMINS W/ FOLIC ACID TABLET (FP) PO SCH (10:29)
[2018-11-13] MEDS: BUDESONIDE/FORMETEROL FUMARATE 160/4.5 mcg INHALER IH SCH (10:31)
== END 2018-11-13 10:46 | disposition home or self-care (01) | DRG 774 ==
LOC: YASAS 11:24 → Y6N 16:24
PROVIDERS: ADMIT Surgery; ATTEND Surgery
PROC: HZ2ZZZZ Detoxification Services for Substance Abuse Treatment (ICD-10-PCS; principal; 2018-11-09)
DX: F10.230 Alcohol dependence with withdrawal, uncomplicated (principal); F14.20 Cocaine dependence, uncomplicated; F17.210 Nicotine dependence, cigarettes, uncomplicated; F19.24 Other psychoactive substance dependence with psychoactive substance-induced mood disorder; F19.282 Other psychoactive substance dependence with psychoactive substance-induced sleep disorder; F41.9 Anxiety disorder, unspecified; F31.81 Bipolar II disorder; B20 Human immunodeficiency virus [HIV] disease; J45.20 Mild intermittent asthma, uncomplicated; N40.0 Benign prostatic hyperplasia without lower urinary tract symptoms; K74.60 Unspecified cirrhosis of liver; E78.5 Hyperlipidemia, unspecified; B18.2 Chronic viral hepatitis C; L25.9 Unspecified contact dermatitis, unspecified cause; L30.8 Other specified dermatitis; Z87.438 Personal history of other diseases of male genital organs; Z91.14 Patient's other noncompliance with medication regimen; Z91.5 Personal history of self-harm
CPT/HCPCS: 36415; 80053; 85027; 86593

== ENCOUNTER 2018-12-12 16:52 | Inpatient (IN) | payer OTHER ==
[2018-12-12 19:30] VITALS: BMI 25.8
--- NOTE | 2018-12-12 21:05 | HP ---
COWS - Scale Resting Pulse: 2= OR 101-120 Sweatin= Chills/Flushing Restless Observation: 1= Difficult to Sit Still Pupil Size: 1= Pupils >than Normal Bone or Joint Aches: 1= Mild Discomfort Runny Nose/ Eye Tearin= Runny Nose/Eyes GI Upset > 30mins: 2= Nausea/Diarrhea Tremor Observation: 2= Slight Tremor Visible Yawning Observation: 0= None Anxiety or Irritability: 2=Irritable/Anxious Goose Flesh Skin: 0=Smooth Skin COWS Score: 14 CIWA Score Nausea/Vomitin Muscle Tremors: 2 Anxiety: 3 Agitation: 2 Paroxysmal Sweats: 2 Orientation: 0-Oriented Tacttile Disturbances: 2-Mild Itch/Numbness/Burn Auditory Disturbances: 0-None Visual Disturbances: 0-None Headache: 1-Very Mild CIWA-Ar Total Score: 15 - Admission Criteria OASAS Guidelines: Admission for Medically Managed Detox: Requires at least one of the followin. CIWA greater than 12 2. Seizures within the past 24 hours 3. Delirium tremens within the past 24 hours 4. Hallucinations within the past 24 hours 5. Acute intervention needed for co occurring medical disorder 6. Acute intervention needed for co occurring psychiatric disorder 7. Severe withdrawal that cannot be handled at a lower level of care (continued vomiting, continued diarrhea, abnormal vital signs) requiring intravenous medication and/or fluids 8. Patient presents the following: CIWA greater than 12 Admission Criteria Met: Admission criteria met Admission ROS [facility] Chief Complaint: " alcohol anf heroin withdrawal symptoms" Allergies/Adverse Reactions: Allergies Allergy/AdvReac Type Severity Reaction Status Date / Time chlordiazepoxide HCl Allergy Severe Rash Verified 12/12/18 20:08 [From Librium] History of Present Illness: 58 yo male with hx of alcohol, heroin, crack/cocaine and nicotine dependence is here seeking detox, this is one of multiple admissions, patient reports self referred. Reports started using heroin (nasal) about a month ago because it was cheaper to use. Last tx rehab at [facility] 11/09/18 -11/13/18. PMHX: HIV+( on genvoya) , HTN, Asthma, BPH, Live Cirrhosis,depression, depression, schizophrenia, mood d /o. Denies suicide homicidal ideation. Denies hx of seizures, reports frequent ETOH blackouts, does not recall last episode. Longest period of sobriety five years. Exam Limitations: No Limitations - Ebola screening Have you traveled outside of the country in the last 21 days: No Have you had contact with anyone from an Ebola affected area: No Have you been sick,other than usual withdrawal symptoms: No Do you have a fever: No - Review of Systems Constitutional: Chills, Loss of Appetite, Changes in sleep, Unintentional Wgt. Loss EENT: reports: Tearing, Nose Congestion Respiratory: reports: No Symptoms reported Cardiac: reports: No Symptoms Reported GI: reports: Nausea, Poor Appetite, Poor Fluid Intake, Abdominal cramping : reports: No Symptoms Reported Musculoskeletal: reports: Back Pain, Joint Pain Integumentary: reports: Pruritus Neuro: reports: Headache, Numbness (both feet), Weakness Endocrine: reports: Increased Thirst Hematology: reports: No Symptoms Reported Psychiatric: reports: Orientated x3, Anxious Other Systems: Reviewed and Negative Patient History - Patient Medical History Hx Anemia: Yes (Not on medication) Hx Asthma: Yes Hx Chronic Obstructive Pulmonary Disease (COPD): No Hx Cancer: No Hx Cardiac Disorders: No Hx Congestive Heart Failure: No Hx Hypertension: Yes Hx Hypercholesterolemia: Yes (Not on medication) Hx Pacemaker: No HX Cerebrovascular Accident: No Hx Seizures: No Hx Dementia: No Hx Diabetes: No Hx Gastrointestinal Disorders: No Hx Liver Disease: Yes (CIRRHOSIS) Hx Genitourinary Disorders: No Hx Sexually Transmitted Disorders: Yes (syphilis, gonorrhea and genital herpes) Hx Renal Disease (ESRD): No Hx Thyroid Disease: No Hx Human Immunodeficiency Virus (HIV): Yes (Genvoya; non compliant) Hx Hepatitis C: Yes (Treated in 2013; Completed, Uncertain if Cured.) Hx Depression: Yes Hx Suicide Attempt: Yes (cut left wrist in 1983) Hx Bipolar Disorder: Yes (Meds., Non-compliant ) Hx Schizophrenia: No - Patient Surgical History Past Surgical History: Yes Hx Neurologic Surgery: No Hx Cataract Extraction: No Hx Cardiac Surgery: No Hx Lung Surgery: No Hx Breast Surgery: No Hx Breast Biopsy: No Hx Abdominal Surgery: No Hx Appendectomy: No Hx Cholecystectomy: No Hx Genitourinary Surgery: No Hx Section: No Hx Orthopedic Surgery: No Other Surgical History: RIGHT WRIST SX in 1983 for a laceration; left wrist laceration 1977 Anesthesia Reaction: No - PPD History Previous Implant?: Yes Documented Results: Negative w/proof Date: 07/16/18 Results: 0 mm - Smoking Cessation Smoking history: Current every day smoker Have you smoked in the past 12 months: Yes Aproximately how many cigarettes per day: 20 Cigars Per Day: 0 Hx Chewing Tobacco Use: No Initiated information on smoking cessation: Yes 'Breaking Loose' booklet given: 12/12/18 - Substance & Tx. History Hx Alcohol Use: Yes Hx Substance Use: Yes Substance Use Type: Alcohol Hx Substance Use Treatment: Yes (Detox [facility] 11/09/18 - 11/13/18) - Substances Abused Alcohol Route: Oral Frequency: Daily Amount used: LIQUOR- 1 PINT, BEER- 5 (40oz) Age of first use: 14 Date of Last Use: 12/12/18 Heroin Route: Inhalation Frequency: Daily Amount used: 6 bags Age of first use: 21 Date of Last Use: 12/12/18 Crack Route: Smoking Frequency: Daily Amount used: $200 worth Age of first use: 34 Date of Last Use: 12/11/18 Family Disease History - Family Disease History Family Disease History: Diabetes: Mother (HTN, .), Respiratory: Sister ( Asthma), Other: Father (addiction to heroin,), Mother Admission Physical Exam [facility] - Vital Signs Vital Signs: Vital Signs - 24 hr 12/12/18 19:27 Temperature 98.0 F Pulse Rate 101 H Respiratory 18 Rate Blood Pressure 136/79 - Physical General Appearance: Yes: Disheveled, Moderate Distress, Sweating, Anxious HEENTM: Yes: EOMI, Hearing grossly Normal, Normal ENT Inspection, Normocephalic , Normal Voice, ROB, Pharynx Normal, Tm's normal, Other (cheilithis, + white oral / toungue exudate) Respiratory: Yes: Chest Non-Tender, Lungs Clear, Normal Breath Sounds, No Respiratory Distress, No Accessory Muscle Use Neck: Yes: Within Normal Limits Breast: Yes: Breast Exam Deferred Cardiology: Yes: Regular Rhythm, Tachycardia Abdominal: Yes: Normal Bowel Sounds, Non Tender, Flat, Decreased BS Genitourinary: Yes: Within Normal Limits Back: Yes: Normal Inspection Musculoskeletal: Yes: Within Normal Limits, full range of Motion, Gait Steady, Pelvis Stable Extremities: Yes: Normal Capillary Refill, Normal Inspection, Normal Range of Motion, Non-Tender Neurological: Yes: 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 - Diagnostic (1) Pruritus Current Visit: Yes Status: Acute (2) Weight loss Current Visit: Yes Status: Acute (3) Alcohol dependence with uncomplicated withdrawal Current Visit: Yes Status: Chronic (4) Anxiety Current Visit: Yes Status: Chronic (5) Asthma Current Visit: No Status: Chronic Qualifiers: Asthma severity: mild Asthma persistence: intermittent Asthma complication type: uncomplicated Qualified Code(s): J45.20 - Mild intermittent asthma, uncomplicated (6) BPH (benign prostatic hypertrophy) Current Visit: Yes Status: Chronic Qualifiers: Lower urinary tract symptom presence: symptoms absent Qualified Code(s): N40.0 - Benign prostatic hyperplasia without lower urinary tract symptoms (7) Cirrhosis of liver Current Visit: Yes Status: Chronic Qualifiers: Ascites presence: unspecified (8) Thrush, oral Current Visit: Yes Status: Acute Cleared for Admission [facility] - Detox or Rehab [facility] Level of Care: Medically Managed Detox Regimen/Protocol: Methadone/Valium S Breath Alcohol Content Breath Alcohol Content: 0 Urine Drug Screen - Results Drug Screen Negative: No Urine Drug Screen Results: ANGIE-Cocaine, OPI-Opiates Inpatient Rehab Admission - Rehab Decision to Admit Inpatient rehab admission?: No
[2018-12-12] MEDS ORDERED: IBUPROFEN 400 MG TABLET (FP) PO PRN (21:13)
[2018-12-12] MEDS ORDERED: NICOTINE POLACRILEX 2 MG GUM BUC PRN (21:13)
[2018-12-12] MEDS ORDERED: METHOCARBAMOL 500 MG TABLET PO PRN (21:13)
[2018-12-12] MEDS ORDERED: ACETAMINOPHEN 325 MG TABLET (FP) PO PRN ×2 (21:13)
[2018-12-12] MEDS ORDERED: cloNIDine HCL 0.1 MG TABLET PO PRN (21:13)
[2018-12-12] MEDS ORDERED: BISMUTH SUBSALICYLATE 524 MG/30 ML UD PO PRN (21:13)
[2018-12-12] MEDS ORDERED: MAG HYDROX/AL HYDROX/SIMETH 30 ML UNIT-DOSE CUP PO PRN (21:13)
[2018-12-12] MEDS ORDERED: MENTHOL/PHENOL 1 EACH UD MM PRN (21:13)
[2018-12-12] MEDS ORDERED: MAGNESIUM HYDROX 2400MG/30ML ORAL SUSPENSION 30 ML CUP PO PRN (21:13)
[2018-12-12] MEDS ORDERED: MAGNESIUM CITRATE 300 ML BOTTLE PO PRN (21:13)
[2018-12-12] MEDS ORDERED: METHADONE HCL 10 MG TABLET (FOR DETOX USE ONLY) PO ONE (23:00)
[2018-12-12] MEDS: diazePAM 5 MG TABLET PO PRN (23:59)
[2018-12-13] MEDS: diazePAM 5 MG TABLET PO SCH ×4 (00:09→22:23)
[2018-12-13] MEDS: NYSTATIN 500,000 UNITS/5 ML SUSPENSION PO SCH ×5 (01:42→23:13)
[2018-12-13] MEDS: diazePAM 5 MG TABLET PO PRN (08:28)
[2018-12-13] MEDS ORDERED: METHADONE HCL 5 MG TABLET (FOR DETOX USE ONLY) PO ONE (10:00)
[2018-12-13] MEDS ORDERED: LIDOCAINE VISCOUS 2% ORAL/TOP 20 ML UNIT-DOSE CUP MM PRN (10:25)
[2018-12-13] MEDS: NICOTINE 14 MG/24 HOURS TOPICAL PATCH TD SCH (10:27)
[2018-12-13] MEDS: PRENATAL VITAMINS W/ FOLIC ACID TABLET (FP) PO SCH (10:27)
--- NOTE | 2018-12-13 11:01 | PN ---
[facility] CIWA - CIWA Score Nausea/Vomitin-No Nausea/No Vomiting Muscle Tremors: 2 Anxiety: 2 Agitation: 2 Paroxysmal Sweats: 1-Minimal Palms Moist Orientation: 1-Uncertain about Date Tacttile Disturbances: 0-None Auditory Disturbances: 0-None Visual Disturbances: 0-None Headache: 2-Mild CIWA-Ar Total Score: 10 [facility] COWS - Scale Resting Pulse: 0= [place] 80 or Below Sweatin= Chills/Flushing Restless Observation: 0= Sits Still Pupil Size: 0= Normal to Room Light Bone or Joint Aches: 1= Mild Discomfort Runny Nose/ Eye Tearin= Nasal Congestion GI Upset > 30mins: 1= Stomach Cramp Tremor Observation of Outstretched Hands: 2= Slight Tremor Visible Yawning Observation: 2= >3x During Session Anxiety or Irritability: 2=Irritable/Anxious Goose Flesh Skin: 0=Smooth Skin COWS Score: 10 [facility] Progress Note (SOAP) Subjective: oral sore under tongue dry lips begin veltrax lidocain oral suspension Objective: 12/13/18 11:22 Vital Signs Temperature 96.7 F L 12/13/18 10:14 Pulse Rate 63 12/13/18 10:14 Respiratory Rate 18 12/13/18 10:14 Blood Pressure 102/63 12/13/18 10:14 O2 Sat by Pulse Oximetry (%) lab pending Assessment: 12/13/18 11:23 withdrawal sx Plan: continue detox
[2018-12-13 11:39] LABS: HEMATOCRIT 39.7 % (35.4-49); HEMOGLOBIN 13.7 GM/dL (11.7-16.9); MCH 31.9 pg (25.7-33.7); MCHC 34.4 g/dl (32.0-35.9); MEAN CELL VOLUME 92.5 fl (80-96); PLATELET COUNT 265 K/MM3 (134-434); RDW 15.2 % (11.9-15.9); WHITE BLOOD COUNT 5.8 K/mm3 (4.0-10.0)
[2018-12-13 12:02] LABS: ALBUMIN 3.8 g/dl (3.4-5.0); ALK PHOS 107 U/L (45-117); ANION GAP 8 MMOL/L (8-16); BILIRUBIN,TOTAL 0.8 mg/dL (0.2-1); BLOOD UREA NITROGEN 30 mg/dL (7-18); CALCIUM 8.6 mg/dL (8.5-10.1); CHLORIDE 101 mmol/L (98-107); CO2 27 mmol/L (21-32); CREATININE 1.2 mg/dL (0.55-1.3); GLUCOSE,RANDOM 61 mg/dL (74-106); POTASSIUM 4.2 mmol/L (3.5-5.1); SGOT/AST 60 U/L (15-37); SGPT/ALT 46 U/L (13-61); SODIUM 135 mmol/L (136-145); TOT PROT 8.5 g/dl (6.4-8.2)
[2018-12-13] MEDS: valACYclovir HCL 500 MG TABLET (FP) PO SCH ×2 (12:26→22:22)
[2018-12-13] MEDS: PETROLATUM, WHITE 30 GM TUBE TP SCH (12:29)
[2018-12-13] MEDS: THIAMINE HCL 100 MG TABLET (FP) PO SCH ×2 (22:21)
[2018-12-13] MEDS: MELATONIN 5 MG TABLETS PO PRN (22:22)
[2018-12-14] MEDS: NYSTATIN 500,000 UNITS/5 ML SUSPENSION PO SCH ×4 (07:03→23:05)
[2018-12-14] MEDS ORDERED: METHADONE HCL 10 MG TABLET (FOR DETOX USE ONLY) PO ONE (10:00)
[2018-12-14] MEDS: valACYclovir HCL 500 MG TABLET (FP) PO SCH ×2 (10:30→22:21)
[2018-12-14] MEDS: PRENATAL VITAMINS W/ FOLIC ACID TABLET (FP) PO SCH (10:30)
[2018-12-14] MEDS: PETROLATUM, WHITE 30 GM TUBE TP SCH (10:31)
[2018-12-14] MEDS: diazePAM 5 MG TABLET PO SCH ×2 (10:31→22:21)
[2018-12-14] MEDS: NICOTINE 14 MG/24 HOURS TOPICAL PATCH TD SCH (10:31)
--- NOTE | 2018-12-14 11:47 | PN ---
S CIWA - CIWA Score Nausea/Vomitin-No Nausea/No Vomiting Muscle Tremors: 2 Anxiety: 1-Mildly Anxious Agitation: 1-Slight > Activity Paroxysmal Sweats: 1-Minimal Palms Moist Orientation: 1-Uncertain about Date Tacttile Disturbances: 0-None Auditory Disturbances: 0-None Visual Disturbances: 0-None Headache: 0-None Present CIWA-Ar Total Score: 6 [facility] COWS - Scale Resting Pulse: 0= [place] 80 or Below Sweatin= Chills/Flushing Restless Observation: 0= Sits Still Pupil Size: 0= Normal to Room Light Bone or Joint Aches: 1= Mild Discomfort Runny Nose/ Eye Tearin= Nasal Congestion GI Upset > 30mins: 0= None Tremor Observation of Outstretched Hands: 1= Tremor [place], Not Seen Yawning Observation: 0= None Anxiety or Irritability: 1=Feels Anxious/Irritable Goose Flesh Skin: 0=Smooth Skin COWS Score: 5 S Progress Note (SOAP) Subjective: feeling better wants to return to infectious disease specialist for medical and mental issues Objective: 12/14/18 11:49 Vital Signs Temperature 96.6 F L 12/14/18 10:10 Pulse Rate 64 12/14/18 10:10 Respiratory Rate 18 12/14/18 10:10 Blood Pressure 119/80 12/14/18 10:10 O2 Sat by Pulse Oximetry (%) Laboratory Last Values WBC 5.8 K/mm3 (4.0-10.0) 12/13/18 07:30 RBC 4.30 M/mm3 (4.00-5.60) 12/13/18 07:30 Hgb 13.7 GM/dL (11.7-16.9) 12/13/18 07:30 Hct 39.7 % (35.4-49) 12/13/18 07:30 MCV 92.5 fl (80-96) 12/13/18 07:30 MCH 31.9 pg (25.7-33.7) 12/13/18 07:30 MCHC 34.4 g/dl (32.0-35.9) 12/13/18 07:30 RDW 15.2 % (11.9-15.9) 12/13/18 07:30 Plt Count 265 K/MM3 (134-434) 12/13/18 07:30 MPV 9.0 fl (7.5-11.1) 12/13/18 07:30 Sodium 135 mmol/L (136-145) L 12/13/18 07:30 Potassium 4.2 mmol/L (3.5-5.1) 12/13/18 07:30 Chloride 101 mmol/L (98-107) 12/13/18 07:30 Carbon Dioxide 27 mmol/L (21-32) 12/13/18 07:30 Anion Gap 8 MMOL/L (8-16) 12/13/18 07:30 BUN 30 mg/dL (7-18) H 12/13/18 07:30 Creatinine 1.2 mg/dL (0.55-1.3) 12/13/18 07:30 Creat Clearance w eGFR 62.63 (>60) 12/13/18 07:30 Random Glucose 61 mg/dL (74-106) L 12/13/18 07:30 Calcium 8.6 mg/dL (8.5-10.1) 12/13/18 07:30 Total Bilirubin 0.8 mg/dL (0.2-1) 12/13/18 07:30 AST 60 U/L (15-37) H 12/13/18 07:30 ALT 46 U/L (13-61) 12/13/18 07:30 Alkaline Phosphatase 107 U/L (45-117) 12/13/18 07:30 Total Protein 8.5 g/dl (6.4-8.2) H 12/13/18 07:30 Albumin 3.8 g/dl (3.4-5.0) 12/13/18 07:30 RPR Titer Nonreactive (NONREACTIVE) 12/13/18 07:30 lab noted Assessment: 12/14/18 11:49 mild alcohol and opiate withdrawal sx Plan: continue detox
[2018-12-14] MEDS: HYDROCORTISONE 0.5% TOPICAL CREAM 30 GM TUBE TP SCH ×2 (15:48→22:23)
[2018-12-14] MEDS: MELATONIN 5 MG TABLETS PO PRN (22:21)
[2018-12-14] MEDS: THIAMINE HCL 100 MG TABLET (FP) PO SCH (22:21)
[2018-12-15] MEDS: NYSTATIN 500,000 UNITS/5 ML SUSPENSION PO SCH (05:23)
[2018-12-15] MEDS: HYDROCORTISONE 0.5% TOPICAL CREAM 30 GM TUBE TP SCH (05:23)
[2018-12-15] MEDS ORDERED: diazePAM 5 MG TABLET PO SCH (06:00)
[2018-12-15] MEDS ORDERED: METHADONE HCL 5 MG TABLET (FOR DETOX USE ONLY) PO ONE (06:00)
[2018-12-15 09:29] VITALS: BP 118/64; PULSE 63; TEMP 96
[2018-12-15] MEDS: NICOTINE 14 MG/24 HOURS TOPICAL PATCH TD SCH (10:19)
[2018-12-15] MEDS: valACYclovir HCL 500 MG TABLET (FP) PO SCH (10:19)
[2018-12-15] MEDS: PRENATAL VITAMINS W/ FOLIC ACID TABLET (FP) PO SCH (10:19)
[2018-12-15] MEDS: PETROLATUM, WHITE 30 GM TUBE TP SCH (10:19)
--- NOTE | 2018-12-15 17:51 | DS ---
[facility] Detox Discharge Summary Admission Date: 12/12/18 Discharge Date: 12/15/18 - History Present History: Alcohol Dependence Additional Comments: PATIENT GOING TO [address] ([place], [place]) FOR AFTERCARE. PATIENT WAS DISCHARGED FROM DETOX UNIT IN STABLE MEDICAL CONDITION. Pertinent Past History: History of Anemia, Asthma, Hypercholesterolemia, H.I.V., history of Cirrhosis Of Liver, History of Hep C (Treated), History of Depression, History Of Bipolar Disorder, Weight Loss, Pruritus, Oral Thrush, Anxiety, History of B.P.H. - Physical Exam Results Vital Signs: Vital Signs Temperature 96 F L 12/15/18 09:29 Pulse Rate 63 12/15/18 09:29 Respiratory Rate 16 12/15/18 09:29 Blood Pressure 118/64 12/15/18 09:29 O2 Sat by Pulse Oximetry (%) Pertinent Admission Physical Exam Findings: WITHDRAWAL SYMPTOMS. Laboratory Tests 12/13/18 12/13/18 12/13/18 07:30 07:30 07:30 WBC 5.8 RBC 4.30 Hgb 13.7 Hct 39.7 MCV 92.5 MCH 31.9 MCHC 34.4 RDW 15.2 Plt Count 265 MPV 9.0 Sodium 135 L Potassium 4.2 Chloride 101 Carbon Dioxide 27 Anion Gap 8 BUN 30 H Creatinine 1.2 Creat Clearance w eGFR 62.63 Random Glucose 61 L Calcium 8.6 Total Bilirubin 0.8 AST 60 H ALT 46 Alkaline Phosphatase 107 Total Protein 8.5 H Albumin 3.8 RPR Titer Nonreactive LABS NOTED. - Treatment Hospital Course: Detox Protocol Followed, Detoxed Safely, Responded well, Discharged Condition Good, Rehab Referral Accepted Patient has Accepted a Rehab Referral to: [address] ([place], [place]) - Medication Discharge Medications: Ambulatory Orders Quetiapine Fumarate [Seroquel -] 300 mg PO BID #60 tablet 04/23/18 Elviteg/Cob/Emtri/Tenof Alafen [Genvoya (Non-Formulary)] 1 each PO DAILY #30 tablet 10/09/18 Aspirin Coated [Ecotrin -] 81 mg PO DAILY #14 tablet.ec 11/12/18 Fluticasone/Salmeterol [Advair 250-50 Diskus] 1 each IH DAILY #1 blst.w.dev Albuterol Sulfate Inhaler - [Ventolin HFA Inhaler -] 2 puff IH Q4H PRN #1 inhaler 12/14/18 Amlodipine Besylate [Norvasc -] 10 mg PO DAILY #14 tablet 12/14/18 Nystatin Oral Suspension - [Nystatin Oral Susp 789958 Units/5 ML -] 500,000 units PO Q6HPO #1 cup 12/14/18 Sulfamethoxazole/Trimethoprim [Bactrim DS -] 1 each PO DAILY #30 tablet Tamsulosin HCl [Flomax -] 0.4 mg PO DAILY@30 #14 cap.er.24h 12/14/18 Valacyclovir HCl [Valtrex -] 500 mg PO BID #30 tablet 12/14/18 - Diagnosis (1) Pruritus Status: Acute (2) Thrush, oral Status: Acute (3) Weight loss Status: Acute (4) Alcohol dependence with uncomplicated withdrawal Status: Acute (5) Anxiety Status: Chronic (6) Asthma Status: Chronic Qualifiers: Asthma severity: mild Asthma persistence: intermittent Asthma complication type: uncomplicated Qualified Code(s): J45.20 - Mild intermittent asthma, uncomplicated (7) BPH (benign prostatic hypertrophy) Status: Chronic Qualifiers: Lower urinary tract symptom presence: symptoms absent Qualified Code(s): N40.0 - Benign prostatic hyperplasia without lower urinary tract symptoms (8) Cirrhosis of liver Status: Chronic Qualifiers: Hepatic cirrhosis type: unspecified hepatic cirrhosis Ascites presence: unspecified Qualified Code(s): K74.60 - Unspecified cirrhosis of liver - AMA Did Patient Leave Against Medical Advice: No
== END 2018-12-15 11:25 | disposition home or self-care (01) | DRG 773 ==
LOC: YASAS 16:52 → Y3N 23:04
PROVIDERS: ADMIT Surgery; ATTEND Surgery
PROC: HZ2ZZZZ Detoxification Services for Substance Abuse Treatment (ICD-10-PCS; principal; 2018-12-12)
DX: F11.23 Opioid dependence with withdrawal (principal); F10.230 Alcohol dependence with withdrawal, uncomplicated; F41.9 Anxiety disorder, unspecified; F31.9 Bipolar disorder, unspecified; F20.9 Schizophrenia, unspecified; Z21 Asymptomatic human immunodeficiency virus [HIV] infection status; I10 Essential (primary) hypertension; J45.909 Unspecified asthma, uncomplicated; E78.5 Hyperlipidemia, unspecified; E78.00 Pure hypercholesterolemia, unspecified; B37.0 Candidal stomatitis; L29.8 Other pruritus; N40.0 Benign prostatic hyperplasia without lower urinary tract symptoms; D64.9 Anemia, unspecified; B18.2 Chronic viral hepatitis C; R63.4 Abnormal weight loss; Z68.25 Body mass index [BMI] 25.0-25.9, adult; Z86.19 Personal history of other infectious and parasitic diseases; Z91.5 Personal history of self-harm
CPT/HCPCS: 36415; 80053; 85027; 86593; J0735

== ENCOUNTER 2019-01-23 18:41 | Inpatient (IN) | payer OTHER ==
[2019-01-23 20:02] VITALS: BMI 24.4
--- NOTE | 2019-01-23 21:10 | HP ---
CIWA Score Nausea/Vomitin-No Nausea/No Vomiting Muscle Tremors: 4-Moderate,w/Arms Extend Anxiety: 4-Mod. Anxious/Guarded Agitation: 4-Moderately Restless Paroxysmal Sweats: 3 (Increased facial moisture) Orientation: 0-Oriented Tacttile Disturbances: 0-None Auditory Disturbances: 0-None Visual Disturbances: 0-None Headache: 0-None Present CIWA-Ar Total Score: 15 - Admission Criteria OASAS Guidelines: Admission for Medically Managed Detox: Requires at least one of the followin. CIWA greater than 12 2. Seizures within the past 24 hours 3. Delirium tremens within the past 24 hours 4. Hallucinations within the past 24 hours 5. Acute intervention needed for co occurring medical disorder 6. Acute intervention needed for co occurring psychiatric disorder 7. Severe withdrawal that cannot be handled at a lower level of care (continued vomiting, continued diarrhea, abnormal vital signs) requiring intravenous medication and/or fluids 8. Patient presents the following: CIWA greater than 12 Admission Criteria Met: Admission criteria met Admission ROS [facility] Chief Complaint: Alcohol withdrawal. Allergies/Adverse Reactions: Allergies Allergy/AdvReac Type Severity Reaction Status Date / Time chlordiazepoxide HCl Allergy Severe Rash Verified 01/23/19 19:55 [From Librium] fish derived Allergy Verified 01/23/19 21:46 History of Present Illness: 59 yom w/ multiple hx of detox and rehab at this facility. Last detox completed on 12/15 and went to [facility] from 12/15 - 12/28/18. States remained sober for only 2 days after rehab. Currently mandated into treatment by the Courts. Alcohol use began at age 17. Crack/cocaine use began at age 34. Heroin use began at age 27 dibbing and dabbing. Stopped and restarted about 3 weeks ago. Recent use only 3 days in a riow. Marijuana use rare. Just smoked a couple of days ago. Nicotine use began at age 15. Declined nicotine patch. States will accept gum. PMHX: HIV+, HTN, Asthma, BPH, Cirrhosis, Hep C, Genital Herpes Intermittent compliance w/ HIV, others meds, and inhalers. Encouraged f/u w/ ID provider upon discharge. MMHx: Depression, schizophrenia, Denies thoughts of harming self or others. No recent provider, except when treated for substance use disorder. Denies hx of seizures, overdose. Hx: Frequent blackouts - last about 3 years ago. Patient Name: Felipe Up Date: 1960 Address: [place] [address] Sex: Male Rx Written Rx Dispensed Drug Quantity Days Supply Prescriber Name 12/15/2018 12/15/2018 buprenorphine-naloxone 2-0.5 mg sl film 30 15 Ally Crews NP Patient Name: Felipe Up Date: 1960 Address: [address] [place] [address] Sex: Male Rx Written Rx Dispensed Drug Quantity Days Supply Prescriber Name 06/23/2018 06/26/2018 clonazepam 0.5 mg tablet 20 10 Rubin Caldwell Patient Name: Felipe Up Date: 1960 Address: [address] [place] [address] Sex: Male Rx Written Rx Dispensed Drug Quantity Days Supply Prescriber Name 04/19/2018 04/20/2018 clonazepam 0.5 mg tablet 30 15 Arlyn Roberts MD x Exam Limitations: No Limitations - Ebola screening Have you traveled outside of the country in the last 21 days: No (n) Have you had contact with anyone from an Ebola affected area: No Have you been sick,other than usual withdrawal symptoms: No (Denies recent exposure to measles) Do you have a fever: No - Review of Systems Constitutional: Chills, Diaphoresis, Changes in sleep (Difficultty falling asl; eep) EENT: reports: Blurred Vision Respiratory: reports: No Symptoms reported Cardiac: reports: Chest Pain (2 days ago while using crack/cocaine) GI: reports: No Symptoms Reported : reports: No Symptoms Reported Musculoskeletal: reports: Back Pain (Chronic sharp/achy intermittent LBP. Increases w/ rainy/cold days and standing alot. Improves w/ rest. No pain at this time), Other Integumentary: reports: Rash ((L) leg x 1-2 weeks. Improving.) Neuro: reports: Tremors Endocrine: reports: No Symptoms Reported Hematology: reports: No Symptoms Reported Psychiatric: reports: Judgement Intact, Orientated x3, Agitated, Anxious, Depressed (Denies thoughts of harming self or others.) Patient History - Patient Medical History Hx Anemia: Yes (Not on medication) Hx Asthma: Yes Hx Chronic Obstructive Pulmonary Disease (COPD): No Hx Cancer: No Hx Cardiac Disorders: No Hx Congestive Heart Failure: No Hx Hypertension: Yes Hx Hypercholesterolemia: Yes (Not on medication) Hx Pacemaker: No HX Cerebrovascular Accident: No Hx Seizures: No Hx Dementia: No Hx Diabetes: No Hx Gastrointestinal Disorders: No Hx Liver Disease: Yes (CIRRHOSIS) Hx Genitourinary Disorders: No Hx Sexually Transmitted Disorders: Yes (syphilis, gonorrhea and genital herpes) Hx Renal Disease (ESRD): No Hx Thyroid Disease: No Hx Human Immunodeficiency Virus (HIV): Yes (Genvoya; non compliant) Hx Hepatitis C: Yes (Treated in 2013; Completed, Uncertain if Cured.) Hx Depression: Yes Hx Suicide Attempt: Yes (cut left wrist in 1983) Hx Bipolar Disorder: Yes (Meds., Non-compliant ) Hx Schizophrenia: No - Patient Surgical History Past Surgical History: Yes Hx Neurologic Surgery: No Hx Cataract Extraction: No Hx Cardiac Surgery: No Hx Lung Surgery: No Hx Breast Surgery: No Hx Breast Biopsy: No Hx Abdominal Surgery: No Hx Appendectomy: No Hx Cholecystectomy: No Hx Genitourinary Surgery: No Hx Section: No Hx Orthopedic Surgery: No Other Surgical History: RIGHT WRIST SX in 1983 for a laceration; left wrist laceration 1977 Anesthesia Reaction: No - PPD History Previous Implant?: Yes Documented Results: Negative w/proof Implanted On Prior R Admission?: Yes Date: 07/16/18 Results: 0 mm PPD to be Administered?: No - Smoking Cessation Smoking history: Current every day smoker Have you smoked in the past 12 months: Yes Aproximately how many cigarettes per day: 20 Cigars Per Day: 0 Hx Chewing Tobacco Use: No Initiated information on smoking cessation: Yes 'Breaking Loose' booklet given: 01/23/19 - Substance & Tx. History Hx Alcohol Use: Yes Hx Substance Use: Yes Substance Use Type: Alcohol, Cocaine, Heroin, Marijuana Hx Substance Use Treatment: Yes (greater than 25 detox/rehab admissions) - Substances abused Alcohol Substance route: Oral Frequency: Daily Amount used: 1 pt. vodka, 2 six pks beers ( 12 oz cans ) Age of first use: 17 Date of last use: 01/23/19 Cocaine Substance route: Smoking Frequency: Daily Amount used: $300 Age of first use: 34 Date of last use: 04/29/19 Crack Substance route: Smoking Frequency: Daily Amount used: $300 Age of first use: 34 Date of last use: 01/22/19 Heroin Substance route: Inhalation Frequency: 3-6 times per week Amount used: 6 bags Age of first use: 27 Date of last use: 01/22/19 Family Disease History - Family Disease History Family Disease History: Diabetes: Mother (HTN, .), Respiratory: Sister ( Asthma), Other: Father (addiction to heroin,), Mother Admission Physical Exam [facility] - Vital Signs Vital Signs: Vital Signs - 24 hr 01/23/19 19:58 Temperature 97.2 F L Pulse Rate 65 Respiratory 18 Rate Blood Pressure 163/93 - Physical General Appearance: Yes: Mild Distress, Tremorous, Sweating (Increased facial moisture), Anxious HEENTM: Yes: EOMI (Jerking movement of eyes upon lateral gaze), Hearing grossly Normal, Normocephalic, Normal Voice, ROB, Pharynx Normal Respiratory: Yes: Lungs Clear, Normal Breath Sounds, No Respiratory Distress Neck: Yes: No masses,lesions,Nodules, Supple Breast: Yes: Breast Exam Deferred Cardiology: Yes: Regular Rhythm, Regular Rate, S1, S2 Abdominal: Yes: Non Tender, Flat, Soft, Increased Bowel Sounds Genitourinary: Yes: Within Normal Limits Back: Yes: Normal Inspection Musculoskeletal: Yes: full range of Motion, Gait Steady Extremities: Yes: Normal Capillary Refill, Non-Tender, Tremors Neurological: Yes: underwater roboticist II-XII NML intact (Jerking movement of eyes upon lateral gaze), Fully Oriented, Alert, Motor Strength 5/5 Integumentary: Yes: Warm, Rash (Dry, scaly flaky facial rash), Other (cracks on feet and between toes.) Lymphatic: Yes: Within Normal Limits - Diagnostic (1) History of asthma Current Visit: Yes Status: Chronic (2) History of HIV infection Current Visit: Yes Status: Chronic Comment: Non-compliant w/ medications. (3) History of cirrhosis of liver Current Visit: Yes Status: Chronic (4) Eczema Current Visit: Yes Status: Chronic Qualifiers: Eczema type: unspecified Qualified Code(s): L30.9 - Dermatitis, unspecified (5) Tinea pedis Current Visit: Yes Status: Chronic Qualifiers: Laterality: bilateral Qualified Code(s): B35.3 - Tinea pedis (6) Alcohol dependence with uncomplicated withdrawal Current Visit: Yes Status: Acute (7) Hypertension Current Visit: Yes Status: Chronic Qualifiers: Hypertension type: essential hypertension Qualified Code(s): I10 - Essential (primary) hypertension (8) Nicotine dependence Current Visit: Yes Status: Chronic Qualifiers: Nicotine product type: cigarettes Substance use status: uncomplicated Qualified Code(s): F17.210 - Nicotine dependence, cigarettes, uncomplicated (9) History of herpes genitalis Current Visit: Yes Status: Chronic (10) History of BPH Current Visit: Yes Status: Chronic Cleared for Admission S - Detox or Rehab [facility] Level of Care: Medically Managed Detox Regimen/Protocol: Valium Claeared for Rehab Admission: No Breathalyzer - Breathalyzer Breathalyzer: 0.008 Urine Drug Screen - Test Device Lot number: [id number] Expiration date: 08/25/20 - Control Is test valid?: Yes - Results Drug screen NEGATIVE: No Urine drug screen results: THC-Marijuana, ANGIE-Cocaine, MOP-Opiates Inpatient Rehab Admission - Rehab Decision to Admit Inpatient rehab admission?: No
[2019-01-23] MEDS ORDERED: NICOTINE POLACRILEX 2 MG GUM BUC PRN (21:47)
[2019-01-23] MEDS ORDERED: IBUPROFEN 400 MG TABLET (FP) PO PRN (21:47)
[2019-01-23] MEDS ORDERED: guaiFENesin 200 MG/10 ML 10 ML UNIT-DOSE CUPS PO PRN (21:47)
[2019-01-23] MEDS ORDERED: MAGNESIUM HYDROX 2400MG/30ML ORAL SUSPENSION 30 ML CUP PO PRN (21:47)
[2019-01-23] MEDS ORDERED: MAGNESIUM CITRATE 300 ML BOTTLE PO PRN (21:47)
[2019-01-23] MEDS ORDERED: BISMUTH SUBSALICYLATE 524 MG/30 ML UD PO PRN (21:47)
[2019-01-23] MEDS ORDERED: MAG HYDROX/AL HYDROX/SIMETH 30 ML UNIT-DOSE CUP PO PRN (21:47)
[2019-01-23] MEDS ORDERED: ONDANSETRON *ODT* 4 MG TABLET SL PRN (21:47)
[2019-01-23] MEDS ORDERED: MENTHOL/PHENOL 1 EACH UD MM PRN (21:47)
[2019-01-23] MEDS ORDERED: METHOCARBAMOL 500 MG TABLET PO PRN (21:47)
[2019-01-23] MEDS ORDERED: diazePAM 5 MG TABLET PO PRN (21:47)
[2019-01-23] MEDS ORDERED: MELATONIN 5 MG TABLETS PO PRN (21:47)
[2019-01-23] MEDS ORDERED: ACETAMINOPHEN 325 MG TABLET (FP) PO PRN ×2 (21:47)
[2019-01-23] MEDS ORDERED: HYDROCORTISONE 1% TOPICAL CREAM 30 GM TUBE TP PRN (21:52)
[2019-01-23] MEDS: TOLNAFTATE 1% CREAM 15 GM TUBE TP SCH (23:29)
[2019-01-23] MEDS: diazePAM 5 MG TABLET PO SCH (23:29)
[2019-01-23] MEDS: THIAMINE HCL 100 MG TABLET (FP) PO SCH (23:29)
[2019-01-24] MEDS: diazePAM 5 MG TABLET PO SCH ×3 (06:59→22:48)
[2019-01-24] MEDS: TAMSULOSIN HCL 0.4 MG CAP PO SCH (08:15)
[2019-01-24 10:14] LABS: HEMATOCRIT 39.8 % (35.4-49); HEMOGLOBIN 13.4 GM/dL (11.7-16.9); MCH 30.6 pg (25.7-33.7); MCHC 33.7 g/dl (32.0-35.9); MEAN CELL VOLUME 90.8 fl (80-96); PLATELET COUNT 237 K/MM3 (134-434); RBC 4.38 M/mm3 (4.00-5.60); RDW 14.7 % (11.9-15.9); WHITE BLOOD COUNT 5.6 K/mm3 (4.0-10.0)
[2019-01-24] MEDS: SULFAMETHOXAZOLE/TRIMETHOPRIM 800MG/160MG D.S. TABLET PO SCH (10:17)
[2019-01-24] MEDS: valACYclovir HCL 500 MG TABLET (FP) PO SCH ×2 (10:17→22:48)
[2019-01-24] MEDS: PRENATAL VITAMINS W/ FOLIC ACID TABLET (FP) PO SCH (10:17)
[2019-01-24] MEDS: ASPIRIN COATED 81 MG TABLET.EC PO SCH (10:17)
[2019-01-24] MEDS: TOLNAFTATE 1% CREAM 15 GM TUBE TP SCH ×2 (10:18→22:48)
[2019-01-24 10:19] LABS: URINE APPEARANCE CLEAR; URINE BILIRUBIN NEGATIVE (NEGATIVE); URINE COLOR YELLOW; URINE GLUCOSE (UA) NEGATIVE (NEGATIVE); URINE KETONE NEGATIVE (NEGATIVE); URINE LEUK ESTERASE NEGATIVE (NEGATIVE); URINE NITRITE NEGATIVE (NEGATIVE); URINE PROTEIN NEGATIVE (NEGATIVE); URINE UROBILINOGEN 0.2 mg/dL (0.2-1.0)
[2019-01-24 10:25] LABS: ALK PHOS 97 U/L (45-117); ANION GAP 6 MMOL/L (8-16); BILIRUBIN,TOTAL 0.3 mg/dL (0.2-1); BLOOD UREA NITROGEN 18 mg/dL (7-18); CALCIUM 8.3 mg/dL (8.5-10.1); CHLORIDE 108 mmol/L (98-107); CO2 25 mmol/L (21-32); CREATININE 1.2 mg/dL (0.55-1.3); GLUCOSE,RANDOM 104 mg/dL (74-106); POTASSIUM 3.7 mmol/L (3.5-5.1); SGOT/AST 15 U/L (15-37); SGPT/ALT 23 U/L (13-61); SODIUM 140 mmol/L (136-145); TOT PROT 7.2 g/dl (6.4-8.2)
--- NOTE | 2019-01-24 11:14 | PN ---
S CIWA - CIWA Score Nausea/Vomitin-No Nausea/No Vomiting Muscle Tremors: 3 Anxiety: 3 Agitation: 3 Paroxysmal Sweats: 3 Orientation: 0-Oriented Tacttile Disturbances: 0-None Auditory Disturbances: 0-None Visual Disturbances: 0-None Headache: 0-None Present CIWA-Ar Total Score: 12 BHS Progress Note (SOAP) Subjective: sweats shakes interrupted sleep body aches Objective: 01/24/19 11:14 Vital Signs Temperature 97.3 F L 01/24/19 09:10 Pulse Rate 65 01/24/19 09:10 Respiratory Rate 18 01/24/19 09:10 Blood Pressure 141/89 01/24/19 09:10 O2 Sat by Pulse Oximetry (%) Laboratory Tests 01/24/19 01/24/19 01/24/19 07:00 07:00 07:00 WBC 5.6 RBC 4.38 Hgb 13.4 Hct 39.8 MCV 90.8 MCH 30.6 MCHC 33.7 RDW 14.7 Plt Count 237 MPV 9.0 Sodium 140 Potassium 3.7 Chloride 108 H Carbon Dioxide 25 Anion Gap 6 L BUN 18 Creatinine 1.2 Creat Clearance w eGFR 62.41 Random Glucose 104 Calcium 8.3 L Total Bilirubin 0.3 AST 15 ALT 23 Alkaline Phosphatase 97 Total Protein 7.2 Albumin 3.0 L Urine Color Yellow Urine Appearance Clear Urine pH 7.0 D Ur Specific [place] 1.010 Urine Protein Negative Urine Glucose (UA) Negative Urine Ketones Negative Urine Blood Negative Urine Nitrite Negative Urine Bilirubin Negative Urine Urobilinogen 0.2 Ur Leukocyte Esterase Negative aaox3 ambulating no acute distress Assessment: 01/24/19 11:14 withdrawal sx Plan: continue detox increase fluids
--- NOTE | 2019-01-24 12:55 | EKG ---
Test Reason : Blood Pressure : / mmHG Vent. Rate : 064 BPM Atrial Rate : 064 BPM P-R Int : 128 ms QRS Dur : 092 ms QT Int : 452 ms P-R-T Axes : -07 055 031 degrees QTc Int : 466 ms NORMAL SINUS RHYTHM MODERATE VOLTAGE CRITERIA FOR LVH, MAY BE NORMAL VARIANT BORDERLINE ECG WHEN COMPARED WITH ECG OF 26-MAY-2018 23:44, NO SIGNIFICANT CHANGE WAS FOUND Confirmed by ALIX ESTEVEZ, KYLER ([id number]) on 01/24/2019 12:55:15 PM Referred By: Confirmed By:KYLER THOMSON MD
--- NOTE | 2019-01-24 16:21 | CONSULT ---
[facility] Psychiatric Consult - Data Date of interview: 01/24/19 Admission source: [facility] Identifying data: Readmission to [facility] for this 59 y/o male, self- referred for detoxification treatment (cocaine, heroin, alcohol). Interviewed at [address] [place] [address]. Patient is single without children, unemployed, domiciled ([place] setting) and supported on [employer] benefits. Substance Abuse History: Confirmed by patient in this interview. Details of substance use are included in this [facility] report that follows : Smoking history: Current every day smoker. Have you smoked in the past 12 months: Yes. Aproximately how many cigarettes per day: 20. Cigars Per Day: 0. Hx Chewing Tobacco Use: No. Initiated information on smoking cessation: Yes. 'Breaking Loose' booklet given: 01/23/19. - Substance & Tx. History. Hx Alcohol Use: Yes. Hx Substance Use: Yes. Substance Use Type: Alcohol, Cocaine, Heroin, Marijuana. Hx Substance Use Treatment: Yes (greater than 25 detox/rehab admissions). - Substances abused. Alcohol. Substance route: Oral. Frequency: Daily. Amount used: 1 pt. vodka, 2 six pks beers ( 12 oz cans ). Age of first use: 17. Date of last use: 01/23/19. Cocaine. Substance route : Smoking. Frequency: Daily. Amount used: $300. Age of first use: 34. Date of last use: 01/22/19. Crack. Substance route: Smoking. Frequency: Daily. Amount used: $300. Age of first use: 34. Date of last use: 01/22/19. Heroin. Substance route: Inhalation. Frequency: 3-6 times per week. Amount used: 6 bags. Age of first use: 27. Date of last use: 01/22/19 Medical History: Medical profile is significant for dyslipidemia, antecedent of surgical intervention for laceration of right wrist (1983), HIV infection since 1985 (on medications), herpes genitalis, bronchial asthma, hypertension, cirrhosis of liver, hepatitis C and BPH (benign prostatic hyperplasia). Past history of treatment for gonorrhea. Psychiatric History: Patient presesnts with a history of multiple psychiatric hospitalizations ([facility], [facility], [facility]). Patient has been diagnosed with Schizoaffective Disorder, Bipolar Disorder. Additional diagnosis : ADHD (age 9). Mr Up is maintained on seroquel 200 mg/hs and sees a psychiatrist at the [facility] clinic in [facility]. Chronically non-adherent to OPD care + psychotropic medications. Patient is known to obtain reills from local [facility] settings. History of multiple suicide attempts via various means which includes wrist-cutting (1983 + 2011), overdose with pills and frequent confrontations with [employer]. Physical/Sexual Abuse/Trauma History: Patient denies. Additional Comment: Urine drug screen results: THC-Marijuana, ANGIE-Cocaine, MOP- Opiates. Noted. Mental Status Exam - Mental Status Exam Alert and Oriented to: Time, Place, Person Cognitive Function: Grossly Intact Patient Appearance: Unkempt, Disheveled Mood: Nervous, Withdrawn, Apprehensive, Irritable Affect: Constricted Patient Behavior: Fatigued, Appropriate, Cooperative Speech Pattern: Clear, Appropriate Voice Loudness: Normal Thought Process: Goal Oriented Thought Disorder: Not Present Hallucinations: Denies Suicidal Ideation: Denies Homicidal Ideation: Denies Insight/Judgement: Poor Sleep: Poorly, Difficulty falling asleep Appetite: Good Muscle strength/Tone: Normal Gait/Station: Normal Psychiatric Findings - Problem List (Paia 1, 2,3) (1) Alcohol dependence with uncomplicated withdrawal Current Visit: Yes Status: Acute (2) Opioid dependence Current Visit: Yes Status: Chronic (3) Cannabis abuse Current Visit: Yes Status: Chronic (4) Cocaine dependence Current Visit: Yes Status: Chronic Qualifiers: Substance use status: uncomplicated Qualified Code(s): F14.20 - Cocaine dependence, uncomplicated (5) Nicotine dependence Current Visit: Yes Status: Chronic Qualifiers: Nicotine product type: cigarettes Substance use status: uncomplicated Qualified Code(s): F17.210 - Nicotine dependence, cigarettes, uncomplicated (6) Substance induced mood disorder Current Visit: Yes Status: Chronic (7) Schizoaffective disorder Current Visit: Yes Status: Chronic Qualifiers: Comment: As per self-report and old records. Not compliant with OPD care. (8) Non-compliance Current Visit: Yes Status: Chronic - Initial Treatment Plan Initial Treatment Plan: Records ([facility]) reviewed. Psychoeducation. Support. Detoxification. Resume seroquel 200 mg po hs. Side effects/benefits discussed in this session. Mr Up is in agreement with this plan of care. Consent ( verbal) given to MD. Pleitez.
[2019-01-24] MEDS: QUEtiapine FUMARATE 200 MG TABLET PO SCH (22:48)
[2019-01-24] MEDS: THIAMINE HCL 100 MG TABLET (FP) PO SCH (22:48)
[2019-01-25] MEDS: TAMSULOSIN HCL 0.4 MG CAP PO SCH (07:32)
[2019-01-25] MEDS: PRENATAL VITAMINS W/ FOLIC ACID TABLET (FP) PO SCH (10:39)
[2019-01-25] MEDS: SULFAMETHOXAZOLE/TRIMETHOPRIM 800MG/160MG D.S. TABLET PO SCH (10:39)
[2019-01-25] MEDS: TOLNAFTATE 1% CREAM 15 GM TUBE TP SCH ×2 (10:39→22:34)
[2019-01-25] MEDS: ASPIRIN COATED 81 MG TABLET.EC PO SCH (10:39)
[2019-01-25] MEDS: valACYclovir HCL 500 MG TABLET (FP) PO SCH ×2 (10:39→22:33)
[2019-01-25] MEDS: diazePAM 5 MG TABLET PO SCH ×2 (10:39→22:34)
--- NOTE | 2019-01-25 10:41 | PN ---
[facility] CIWA - CIWA Score Nausea/Vomitin-No Nausea/No Vomiting Muscle Tremors: 3 Anxiety: 2 Agitation: 2 Paroxysmal Sweats: 2 Orientation: 0-Oriented Tacttile Disturbances: 0-None Auditory Disturbances: 0-None Visual Disturbances: 0-None Headache: 0-None Present CIWA-Ar Total Score: 9 S Progress Note (SOAP) Subjective: tired interrupted sleep Objective: 01/25/19 10:40 Vital Signs Temperature 96.9 F L 01/25/19 10:02 Pulse Rate 64 01/25/19 10:02 Respiratory Rate 18 01/25/19 10:02 Blood Pressure 140/92 01/25/19 10:02 O2 Sat by Pulse Oximetry (%) Laboratory Tests 01/24/19 01/24/19 01/24/19 07:00 07:00 07:00 WBC 5.6 RBC 4.38 Hgb 13.4 Hct 39.8 MCV 90.8 MCH 30.6 MCHC 33.7 RDW 14.7 Plt Count 237 MPV 9.0 Sodium 140 Potassium 3.7 Chloride 108 H Carbon Dioxide 25 Anion Gap 6 L BUN 18 Creatinine 1.2 Creat Clearance w eGFR 62.41 Random Glucose 104 Calcium 8.3 L Total Bilirubin 0.3 AST 15 ALT 23 Alkaline Phosphatase 97 Total Protein 7.2 Albumin 3.0 L Urine Color Urine Appearance Urine pH Ur Specific [place] Urine Protein Urine Glucose (UA) Urine Ketones Urine Blood Urine Nitrite Urine Bilirubin Urine Urobilinogen Ur Leukocyte Esterase RPR Titer Nonreactive 01/24/19 07:00 WBC RBC Hgb Hct MCV MCH MCHC RDW Plt Count MPV Sodium Potassium Chloride Carbon Dioxide Anion Gap BUN Creatinine Creat Clearance w eGFR Random Glucose Calcium Total Bilirubin AST ALT Alkaline Phosphatase Total Protein Albumin Urine Color Yellow Urine Appearance Clear Urine pH 7.0 D Ur Specific [place] 1.010 Urine Protein Negative Urine Glucose (UA) Negative Urine Ketones Negative Urine Blood Negative Urine Nitrite Negative Urine Bilirubin Negative Urine Urobilinogen 0.2 Ur Leukocyte Esterase Negative RPR Titer aaox3 ambulating no acute distress Assessment: 01/25/19 10:40 mild withdrawal sx Plan: continue detox increase fluids d/c in am
[2019-01-25] MEDS: QUEtiapine FUMARATE 200 MG TABLET PO SCH (22:33)
[2019-01-25] MEDS: THIAMINE HCL 100 MG TABLET (FP) PO SCH (22:34)
[2019-01-26] MEDS ORDERED: diazePAM 5 MG TABLET PO SCH (06:00)
[2019-01-26 09:31] VITALS: BP 149/92; PULSE 89; TEMP 97.9
[2019-01-26] MEDS: SULFAMETHOXAZOLE/TRIMETHOPRIM 800MG/160MG D.S. TABLET PO SCH (09:53)
[2019-01-26] MEDS: PRENATAL VITAMINS W/ FOLIC ACID TABLET (FP) PO SCH (09:53)
[2019-01-26] MEDS: valACYclovir HCL 500 MG TABLET (FP) PO SCH (09:54)
[2019-01-26] MEDS: TAMSULOSIN HCL 0.4 MG CAP PO SCH (09:54)
[2019-01-26] MEDS: TOLNAFTATE 1% CREAM 15 GM TUBE TP SCH (09:54)
[2019-01-26] MEDS: ASPIRIN COATED 81 MG TABLET.EC PO SCH (09:54)
--- NOTE | 2019-01-26 15:35 | DS ---
[facility] Detox Discharge Summary Admission Date: 01/23/19 Discharge Date: 01/26/19 - History Present History: Alcohol Dependence, Cannabis Dependence, Cocaine Dependence Additional Comments: . [facility] FOR AFTERCARE. PATIENT WAS DISCHARGED FROM DETOX UNIT TO BE TAKEN OVER TO REHAB UNIT IN STABLE MEDICAL CONDITION. Pertinent Past History: Nicotine Dependence, BPH, HIV, Asthma HTN, Hep C (Treated), History Of Genital Herpes, Hypercholesterolemia, History Of Anemia, History Of Cirrhosis Of Liver, Depression, Bipolar Disorder, Tinea Pedis, Schizoaffective Disorder, History Of Herpes Genitalis. - Physical Exam Results Vital Signs: Vital Signs Temperature 97.9 F 01/26/19 09:31 Pulse Rate 89 01/26/19 09:31 Respiratory Rate 18 01/26/19 09:31 Blood Pressure 149/92 01/26/19 09:31 O2 Sat by Pulse Oximetry (%) Pertinent Admission Physical Exam Findings: WITHDRAWAL SYMPTOMS. Laboratory Tests 01/24/19 01/24/19 01/24/19 07:00 07:00 07:00 WBC 5.6 RBC 4.38 Hgb 13.4 Hct 39.8 MCV 90.8 MCH 30.6 MCHC 33.7 RDW 14.7 Plt Count 237 MPV 9.0 Sodium 140 Potassium 3.7 Chloride 108 H Carbon Dioxide 25 Anion Gap 6 L BUN 18 Creatinine 1.2 Creat Clearance w eGFR 62.41 Random Glucose 104 Calcium 8.3 L Total Bilirubin 0.3 AST 15 ALT 23 Alkaline Phosphatase 97 Total Protein 7.2 Albumin 3.0 L Urine Color Urine Appearance Urine pH Ur Specific [place] Urine Protein Urine Glucose (UA) Urine Ketones Urine Blood Urine Nitrite Urine Bilirubin Urine Urobilinogen Ur Leukocyte Esterase RPR Titer Nonreactive 01/24/19 07:00 WBC RBC Hgb Hct MCV MCH MCHC RDW Plt Count MPV Sodium Potassium Chloride Carbon Dioxide Anion Gap BUN Creatinine Creat Clearance w eGFR Random Glucose Calcium Total Bilirubin AST ALT Alkaline Phosphatase Total Protein Albumin Urine Color Yellow Urine Appearance Clear Urine pH 7.0 D Ur Specific [place] 1.010 Urine Protein Negative Urine Glucose (UA) Negative Urine Ketones Negative Urine Blood Negative Urine Nitrite Negative Urine Bilirubin Negative Urine Urobilinogen 0.2 Ur Leukocyte Esterase Negative RPR Titer LABS NOTED. - Treatment Hospital Course: Detox Protocol Followed, Detoxed Safely, Responded well, Discharged Condition Good, Rehab Referral Accepted Patient has Accepted a Rehab Referral to: [facility] ([place], [place]). - Medication Discharge Medications: Ambulatory Orders Quetiapine Fumarate [Seroquel -] 300 mg PO BID #60 tablet 04/23/18 Elviteg/Cob/Emtri/Tenof Alafen [Genvoya (Non-Formulary)] 1 each PO DAILY #30 tablet 10/09/18 Aspirin Coated [Ecotrin -] 81 mg PO DAILY #14 tablet.ec 11/12/18 Fluticasone/Salmeterol [Advair 250-50 Diskus] 1 each IH DAILY #1 blst.w.dev Albuterol Sulfate Inhaler - [Ventolin HFA Inhaler -] 2 puff IH Q4H PRN #1 inhaler 12/14/18 Amlodipine Besylate [Norvasc -] 10 mg PO DAILY #14 tablet 12/14/18 Nystatin Oral Suspension - [Nystatin Oral Susp 343599 Units/5 ML -] 500,000 units PO Q6HPO #1 cup 12/14/18 Sulfamethoxazole/Trimethoprim [Bactrim DS -] 1 each PO DAILY #30 tablet Tamsulosin HCl [Flomax -] 0.4 mg PO DAILY@0830 #14 cap.er.24h 12/14/18 Valacyclovir HCl [Valtrex -] 500 mg PO BID #30 tablet 12/14/18 - Diagnosis (1) Alcohol dependence with uncomplicated withdrawal Status: Acute (2) Asthma Status: Chronic Qualifiers: Asthma severity: mild Asthma persistence: intermittent Asthma complication type: uncomplicated Qualified Code(s): J45.20 - Mild intermittent asthma, uncomplicated (3) Cirrhosis of liver Status: Chronic Qualifiers: Hepatic cirrhosis type: unspecified hepatic cirrhosis Ascites presence: unspecified Qualified Code(s): K74.60 - Unspecified cirrhosis of liver (4) Eczema Status: Chronic Qualifiers: Eczema type: unspecified Qualified Code(s): L30.9 - Dermatitis, unspecified (5) HIV (human immunodeficiency virus infection) Status: Chronic Qualifiers: HIV symptom status: unspecified Qualified Code(s): B20 - Human immunodeficiency virus [HIV] disease (6) History of BPH Status: Chronic (7) History of herpes genitalis Status: Chronic (8) Hypertension Status: Chronic Qualifiers: Hypertension type: essential hypertension Qualified Code(s): I10 - Essential (primary) hypertension (9) Nicotine dependence Status: Chronic Qualifiers: Nicotine product type: cigarettes Substance use status: uncomplicated Qualified Code(s): F17.210 - Nicotine dependence, cigarettes, uncomplicated (10) Tinea pedis Status: Chronic Qualifiers: Laterality: bilateral Qualified Code(s): B35.3 - Tinea pedis (11) Substance induced mood disorder Status: Acute (12) Cannabis abuse Status: Chronic (13) Cocaine dependence Status: Chronic Qualifiers: Substance use status: uncomplicated Qualified Code(s): F14.20 - Cocaine dependence, uncomplicated (14) Non-compliance Status: Chronic (15) Schizoaffective disorder Status: Chronic Qualifiers: Schizoaffective disorder type: unspecified Qualified Code(s): F25.9 - Schizoaffective disorder, unspecified - AMA Did Patient Leave Against Medical Advice: No
== END 2019-01-26 13:56 | disposition other institution (70) | DRG 773 ==
LOC: YASAS 18:41 → Y6N 21:48
PROVIDERS: ADMIT Surgery; ATTEND Surgery
PROC: HZ2ZZZZ Detoxification Services for Substance Abuse Treatment (ICD-10-PCS; principal; 2019-01-23)
DX: F10.230 Alcohol dependence with withdrawal, uncomplicated (principal); F11.10 Opioid abuse, uncomplicated; F14.20 Cocaine dependence, uncomplicated; F12.20 Cannabis dependence, uncomplicated; F17.210 Nicotine dependence, cigarettes, uncomplicated; F19.24 Other psychoactive substance dependence with psychoactive substance-induced mood disorder; F25.9 Schizoaffective disorder, unspecified; F31.9 Bipolar disorder, unspecified; Z21 Asymptomatic human immunodeficiency virus [HIV] infection status; I10 Essential (primary) hypertension; J45.20 Mild intermittent asthma, uncomplicated; L30.9 Dermatitis, unspecified; D64.9 Anemia, unspecified; B35.3 Tinea pedis; N40.0 Benign prostatic hyperplasia without lower urinary tract symptoms; Z86.19 Personal history of other infectious and parasitic diseases; Z91.5 Personal history of self-harm; Z91.19 Patient's noncompliance with other medical treatment and regimen
CPT/HCPCS: 36415; 80053; 81003; 85027; 86593; 93005; 93010

== ENCOUNTER 2019-01-26 15:16 | Inpatient (IN) | payer OTHER ==
--- NOTE | 2019-01-26 15:41 | HP ---
[facility] Re[facility] Assess/Revision - Admission History Admitted to Rehab from: [facility] Date of Admission to Rehab: 01/26/2019. - Vital signs Vital Signs: NOTED; STABLE. - Findings Detox History & Physical reviewed: Yes Concur with findings: Yes Comments/Additional Findings: PATIENT'S MEDICAL / MEDICATION HISTORY REVIEWED PRIOR TO DISCHARGE FROM DETOX UNIT. NOTE: PATIENT REPROTS HISTORY OF AMLODIPINE , 10 MG PO DAILY FOR TREATMENT OF HTN ON OUTPATIENT BASIS. HOWEVER, THIS MEDICATION NOT PRESCRIBED WHILE PATIENT WAS ADMITTED FOR DETOX. WILL CONTIUE TO MONITOR BP'S WHILE IN REHAB BEFORE MAKING DETERMINATRION ABOUT WHETHER OR NOT TO ORDER AT A LATER TIME. PATIENT WAS DISCHARGED FROM DETOX UNIT TO BE TAKEN OVER TO REHAB UNIT IN STABLE MEDICAL CONDITION. Inpatient Rehab Admission - Rehab Decision to Admit Inpatient rehab admission?: Yes - Initial Determination Are CD services needed?: Yes Free of communicable disease: Yes Not in need of hospitalization: Yes - Rehab Admission Criteria Previous failed treatment: Yes Poor recovery environment: Yes Comorbidities: Yes Lacks judgement: Yes Patient is meeting Inpatient Rehab admission criteria:: Yes
[2019-01-26] MEDS ORDERED: MENTHOL/PHENOL 1 EACH UD MM PRN (15:42)
[2019-01-26] MEDS ORDERED: MAG HYDROX/AL HYDROX/SIMETH 30 ML UNIT-DOSE CUP PO PRN (15:42)
[2019-01-26] MEDS ORDERED: P-EPHED 60MG/TRIPROLIDI 2.5MG TABLET PO PRN (15:42)
[2019-01-26] MEDS ORDERED: guaiFENesin 200 MG/10 ML 10 ML UNIT-DOSE CUPS PO PRN (15:42)
[2019-01-26] MEDS ORDERED: MAGNESIUM HYDROX 2400MG/30ML ORAL SUSPENSION 30 ML CUP PO PRN (15:42)
[2019-01-26] MEDS ORDERED: ALBUTEROL SO4 8 GM HFA INHALER IH PRN (15:42)
[2019-01-26] MEDS ORDERED: MAGNESIUM CITRATE 300 ML BOTTLE PO PRN (15:42)
[2019-01-26] MEDS ORDERED: NICOTINE POLACRILEX 2 MG GUM BUC PRN (15:42)
[2019-01-26] MEDS ORDERED: LOPERAMIDE HCL 2 MG CAPSULE PO PRN (15:42)
--- NOTE | 2019-01-26 16:35 | PN ---
[facility] Progress Note Note: Psychiatry Attending's note : Called by medical HOME HEALTH CARE RESPIRATORY THERAPIST Eric. Issue : renewal of seroquel order. Patient is known to this designer/writer. Mr Up is now at [address] Seroquel 200 mg po hs. Resumed for continuity of care.
[2019-01-26] MEDS: THIAMINE HCL 100 MG TABLET (FP) PO SCH (21:48)
[2019-01-26] MEDS: valACYclovir HCL 500 MG TABLET (FP) PO SCH (21:49)
[2019-01-26] MEDS: QUEtiapine FUMARATE 200 MG TABLET PO SCH (21:49)
[2019-01-27] MEDS: TAMSULOSIN HCL 0.4 MG CAP PO SCH (07:50)
[2019-01-27] MEDS: ASPIRIN COATED 81 MG TABLET.EC PO SCH (10:32)
[2019-01-27] MEDS: PRENATAL VITAMINS W/ FOLIC ACID TABLET (FP) PO SCH (10:32)
[2019-01-27] MEDS: valACYclovir HCL 500 MG TABLET (FP) PO SCH ×2 (10:32→21:50)
[2019-01-27] MEDS: SULFAMETHOXAZOLE/TRIMETHOPRIM 800MG/160MG D.S. TABLET PO SCH (10:32)
[2019-01-27] MEDS: QUEtiapine FUMARATE 200 MG TABLET PO SCH (21:50)
[2019-01-27] MEDS: THIAMINE HCL 100 MG TABLET (FP) PO SCH (21:50)
[2019-01-28] MEDS: TAMSULOSIN HCL 0.4 MG CAP PO SCH (07:59)
[2019-01-28] MEDS: ASPIRIN COATED 81 MG TABLET.EC PO SCH (10:28)
[2019-01-28] MEDS: valACYclovir HCL 500 MG TABLET (FP) PO SCH ×2 (10:28→21:05)
[2019-01-28] MEDS: SULFAMETHOXAZOLE/TRIMETHOPRIM 800MG/160MG D.S. TABLET PO SCH (10:28)
[2019-01-28] MEDS: PRENATAL VITAMINS W/ FOLIC ACID TABLET (FP) PO SCH (10:28)
[2019-01-28] MEDS: TOLNAFTATE 1% CREAM 15 GM TUBE TP SCH ×2 (14:15→21:05)
[2019-01-28] MEDS: MELATONIN 5 MG TABLETS PO PRN (21:04)
[2019-01-28] MEDS: THIAMINE HCL 100 MG TABLET (FP) PO SCH (21:04)
[2019-01-28] MEDS: QUEtiapine FUMARATE 200 MG TABLET PO SCH (21:05)
[2019-01-29] MEDS: TAMSULOSIN HCL 0.4 MG CAP PO SCH (08:52)
[2019-01-29] MEDS: valACYclovir HCL 500 MG TABLET (FP) PO SCH ×2 (10:52→21:35)
[2019-01-29] MEDS: TOLNAFTATE 1% CREAM 15 GM TUBE TP SCH ×2 (10:53→21:36)
[2019-01-29] MEDS: SULFAMETHOXAZOLE/TRIMETHOPRIM 800MG/160MG D.S. TABLET PO SCH (10:53)
[2019-01-29] MEDS: ASPIRIN COATED 81 MG TABLET.EC PO SCH (10:53)
[2019-01-29] MEDS: PRENATAL VITAMINS W/ FOLIC ACID TABLET (FP) PO SCH (10:53)
--- NOTE | 2019-01-29 14:21 | PN ---
[facility] Progress Note Note: Calcium level 8.3, will repeat cmp in am.
[2019-01-29] MEDS: THIAMINE HCL 100 MG TABLET (FP) PO SCH (21:35)
[2019-01-29] MEDS: QUEtiapine FUMARATE 200 MG TABLET PO SCH (21:35)
[2019-01-29] MEDS: MELATONIN 5 MG TABLETS PO PRN (21:35)
[2019-01-30] MEDS: ASPIRIN COATED 81 MG TABLET.EC PO SCH (09:39)
[2019-01-30] MEDS: PRENATAL VITAMINS W/ FOLIC ACID TABLET (FP) PO SCH (09:39)
[2019-01-30] MEDS: TAMSULOSIN HCL 0.4 MG CAP PO SCH (09:39)
[2019-01-30] MEDS: SULFAMETHOXAZOLE/TRIMETHOPRIM 800MG/160MG D.S. TABLET PO SCH (09:40)
[2019-01-30] MEDS: TOLNAFTATE 1% CREAM 15 GM TUBE TP SCH ×2 (09:40→21:05)
[2019-01-30] MEDS: valACYclovir HCL 500 MG TABLET (FP) PO SCH ×2 (09:40→21:04)
[2019-01-30] MEDS ORDERED: HYDROCORTISONE 1% TOPICAL OINT 30 GM TUBE TP PRN (09:44)
[2019-01-30 10:21] LABS: ALBUMIN 3.5 g/dl (3.4-5.0); ALK PHOS 86 U/L (45-117); ANION GAP 8 MMOL/L (8-16); BILIRUBIN,TOTAL 0.4 mg/dL (0.2-1); BLOOD UREA NITROGEN 21 mg/dL (7-18); CALCIUM 8.7 mg/dL (8.5-10.1); CHLORIDE 105 mmol/L (98-107); CO2 26 mmol/L (21-32); CREATININE 1.3 mg/dL (0.55-1.3); GLUCOSE,RANDOM 106 mg/dL (74-106); POTASSIUM 4.3 mmol/L (3.5-5.1); SGOT/AST 19 U/L (15-37); SGPT/ALT 31 U/L (13-61); SODIUM 138 mmol/L (136-145); TOT PROT 7.8 g/dl (6.4-8.2)
--- NOTE | 2019-01-30 11:53 | PN ---
[facility] Progress Note (SOAP) Subjective: Patient wants to leave tomorrow because he has a court date. Objective: Alert and oriented x 3; Lungs clear, heart rate regular, abd soft non-tender non -distended, 01/30/19 11:52 CBC, BMP 01/30/19 07:00 Vital Signs (72 hours) 01/28/19 01/28/19 01/28/19 00:30 03:30 07:10 Temperature 97.2 F L Pulse Rate 66 Respiratory 18 18 18 Rate Blood Pressure 151/98 01/29/19 01/29/19 01/29/19 00:30 03:30 07:11 Temperature 97.8 F Pulse Rate 80 Respiratory 20 20 18 Rate Blood Pressure 147/79 01/30/19 01/30/19 03:30 07:06 Temperature 97.4 F L Pulse Rate 78 Respiratory 20 18 Rate Blood Pressure 149/94 01/30/19 12:13 Assessment: Medically stable for discharge Discharge Dx; HIV Disease HTN Cirrhosis Substance abuse disorder, chronic. 01/30/19 12:17 Plan: Will obtain aftercare at [facility] at [facility] and [facility] in the [place]. Primary care at [facility], at [facility].
[2019-01-30] MEDS: QUEtiapine FUMARATE 200 MG TABLET PO SCH (21:04)
[2019-01-30] MEDS: THIAMINE HCL 100 MG TABLET (FP) PO SCH (21:04)
[2019-01-31] MEDS: TAMSULOSIN HCL 0.4 MG CAP PO SCH (08:34)
[2019-01-31] MEDS: valACYclovir HCL 500 MG TABLET (FP) PO SCH ×2 (10:34→21:05)
[2019-01-31] MEDS: SULFAMETHOXAZOLE/TRIMETHOPRIM 800MG/160MG D.S. TABLET PO SCH (10:34)
[2019-01-31] MEDS: ASPIRIN COATED 81 MG TABLET.EC PO SCH (10:34)
[2019-01-31] MEDS: PRENATAL VITAMINS W/ FOLIC ACID TABLET (FP) PO SCH (10:34)
[2019-01-31] MEDS: TOLNAFTATE 1% CREAM 15 GM TUBE TP SCH ×2 (10:35→21:05)
--- NOTE | 2019-01-31 14:12 | PN ---
[facility] Progress Note Note: Patient will be discharged tomorrow. No changes from last discharge note ( discharge was cancelled). Please refer to previous discharge note. Examination unchanged, no abnormal findings. CBC, BMP 01/30/19 07:00 Vital Signs (72 hours) 01/29/19 01/29/19 01/29/19 00:30 03:30 07:11 Temperature 97.8 F Pulse Rate 80 Respiratory 20 20 18 Rate Blood Pressure 147/79 01/30/19 01/30/19 01/31/19 03:30 07:06 00:30 Temperature 97.4 F L Pulse Rate 78 Respiratory 20 18 20 Rate Blood Pressure 149/94 01/31/19 01/31/19 03:30 07:00 Temperature 97.4 F L Pulse Rate 85 Respiratory 20 18 Rate Blood Pressure 154/98 Will obtain aftercare at [facility] at [facility] and [facility] in the [place]. Primary care at [facility], [facility]. Medically stable for discharge Discharge Dx; HIV Disease HTN Cirrhosis Substance abuse disorder, chronic.
[2019-01-31] MEDS: THIAMINE HCL 100 MG TABLET (FP) PO SCH (21:05)
[2019-01-31] MEDS: QUEtiapine FUMARATE 200 MG TABLET PO SCH (21:05)
[2019-02-01 07:13] VITALS: BP 150/99; PULSE 80; TEMP 98
[2019-02-01] MEDS: TAMSULOSIN HCL 0.4 MG CAP PO SCH (07:31)
--- NOTE | 2019-02-01 08:09 | PN ---
S Progress Note Note: Patient is scheduled for discharge today. Scripts for 30 days supply of Seroquel 200 mg/hs is electronically transmitted to [facility] at [address] [place] [id number]
[2019-02-01] MEDS: valACYclovir HCL 500 MG TABLET (FP) PO SCH (09:13)
[2019-02-01] MEDS: ASPIRIN COATED 81 MG TABLET.EC PO SCH (09:13)
[2019-02-01] MEDS: SULFAMETHOXAZOLE/TRIMETHOPRIM 800MG/160MG D.S. TABLET PO SCH (09:13)
[2019-02-01] MEDS: PRENATAL VITAMINS W/ FOLIC ACID TABLET (FP) PO SCH (09:14)
[2019-02-01] MEDS: TOLNAFTATE 1% CREAM 15 GM TUBE TP SCH (09:15)
== END 2019-02-01 09:40 | disposition home or self-care (01) | DRG 772 ==
LOC: YASAS 15:16 → Y3W 15:17
PROVIDERS: ADMIT Neuromusculoskeletal Medicine & OMM; ATTEND Neuromusculoskeletal Medicine & OMM
PROC: HZ42ZZZ Group Counseling for Substance Abuse Treatment, Cognitive-Behavioral (ICD-10-PCS; principal; 2019-01-26)
DX: F10.20 Alcohol dependence, uncomplicated (principal); F17.210 Nicotine dependence, cigarettes, uncomplicated; I10 Essential (primary) hypertension; Z21 Asymptomatic human immunodeficiency virus [HIV] infection status; K74.60 Unspecified cirrhosis of liver; B18.2 Chronic viral hepatitis C; J45.909 Unspecified asthma, uncomplicated; Z91.14 Patient's other noncompliance with medication regimen; Z87.438 Personal history of other diseases of male genital organs; Z91.013 Allergy to seafood; Z91.5 Personal history of self-harm
CPT/HCPCS: 36415; 80053

== ENCOUNTER 2019-03-22 17:06 | Inpatient (IN) | payer OTHER ==
[2019-03-22 18:20] VITALS: BMI 26.7
--- NOTE | 2019-03-22 21:13 | HP ---
CIWA Score - Admission Criteria OASAS Guidelines: Admission for Medically Managed Detox: Requires at least one of the followin. CIWA greater than 12 2. Seizures within the past 24 hours 3. Delirium tremens within the past 24 hours 4. Hallucinations within the past 24 hours 5. Acute intervention needed for co occurring medical disorder 6. Acute intervention needed for co occurring psychiatric disorder 7. Severe withdrawal that cannot be handled at a lower level of care (continued vomiting, continued diarrhea, abnormal vital signs) requiring intravenous medication and/or fluids 8. Admission ROS S - HPI Chief Complaint: Seeking admission to Rehab. Allergies/Adverse Reactions: Allergies Allergy/AdvReac Type Severity Reaction Status Date / Time chlordiazepoxide HCl Allergy Severe Rash Verified 03/22/19 18:10 [From Librium] fish derived Allergy Verified 03/22/19 18:10 History of Present Illness: 59 years old male is seeking admission to Rehab. Patient reports that he completed detox at [facility]. He has medical history of anemia, asthma, hypertension, hyperlipidemia, cirrhosis of liver, HIV +, Hep. C , Herpes BPH, depression and anxiety. He denies suicidal ideation at this time. Exam Limitations: No Limitations - Ebola screening Have you traveled outside of the country in the last 21 days: No (N) Have you had contact with anyone from an Ebola affected area: No Do you have a fever: No - Review of Systems Constitutional: No Symptoms Reported EENT: reports: No Symptoms Reported Respiratory: reports: No Symptoms reported Cardiac: reports: No Symptoms Reported GI: reports: No Symptoms Reported : reports: No Symptoms Reported Musculoskeletal: reports: No Symptoms Reported Integumentary: reports: No Symptoms Reported Neuro: reports: No Symptoms reported Endocrine: reports: No Symptoms Reported Hematology: reports: No Symptoms Reported Psychiatric: reports: No Sypmtoms Reported, Mood/Affect Appropiate Other Systems: Reviewed and Negative Patient History - Patient Medical History Hx Anemia: Yes (Not on medication) Hx Asthma: Yes Hx Chronic Obstructive Pulmonary Disease (COPD): No Hx Cancer: No Hx Cardiac Disorders: No Hx Congestive Heart Failure: No Hx Hypertension: Yes Hx Hypercholesterolemia: Yes (Not on medication) Hx Pacemaker: No HX Cerebrovascular Accident: No Hx Seizures: No Hx Dementia: No Hx Diabetes: No Hx Gastrointestinal Disorders: No Hx Liver Disease: Yes (CIRRHOSIS) Hx Genitourinary Disorders: Yes (BPH - Flomax) Hx Sexually Transmitted Disorders: Yes (Herpes) Hx Renal Disease (ESRD): No Hx Thyroid Disease: No Hx Human Immunodeficiency Virus (HIV): Yes (Genvoya; non compliant) Hx Hepatitis C: Yes (Treated in 2013; Completed, Uncertain if Cured.) Hx Depression: Yes (Not on medication) Hx Suicide Attempt: Yes (cut wrist last 2017. ) Hx Bipolar Disorder: Yes (Meds., Non-compliant ) Hx Schizophrenia: Yes - Patient Surgical History Past Surgical History: Yes Hx Neurologic Surgery: No Hx Cataract Extraction: No Hx Cardiac Surgery: No Hx Lung Surgery: No Hx Abdominal Surgery: No Hx Appendectomy: No Hx Cholecystectomy: No Hx Genitourinary Surgery: No Hx Orthopedic Surgery: No Other Surgical History: RIGHT WRIST SX in 1983 for a laceration; left wrist laceration 1977 Anesthesia Reaction: No - PPD History Previous Implant?: Yes Documented Results: Negative w/proof Implanted On Prior [facility] Admission?: Yes Date: 07/16/18 Results: 0 mm PPD to be Administered?: No - Reproductive History Patient is a Female of Child Bearing Age (11 -55 yrs old): No (male) - Smoking Cessation Smoking history: Current every day smoker Have you smoked in the past 12 months: Yes Aproximately how many cigarettes per day: 20 Cigars Per Day: 0 Hx Chewing Tobacco Use: No Initiated information on smoking cessation: Yes 'Breaking Loose' booklet given: 03/22/19 - Substance & Tx. History Hx Alcohol Use: Yes Hx Substance Use: Yes Substance Use Type: Alcohol, Cocaine Hx Substance Use Treatment: Yes ([facility]) - Substances abused Alcohol Substance route: Oral Frequency: Daily Amount used: 1 pt. vodka, 2 six pks beers ( 12 oz cans ) Age of first use: 17 Date of last use: 03/21/19 Cocaine Substance route: Smoking Frequency: Daily Amount used: $300 Age of first use: 34 Date of last use: 03/22/19 Crack Substance route: Smoking Frequency: Daily Amount used: $300 Age of first use: 34 Date of last use: 03/21/19 Heroin Substance route: Inhalation Frequency: 3-6 times per week Amount used: 6 bags Age of first use: 27 Date of last use: 01/22/19 Family Disease History - Family Disease History Family Disease History: Diabetes: Mother (HTN, .), Respiratory: Sister ( Asthma), Other: Father (addiction to heroin,), Mother Admission Physical Exam S - Vital Signs Vital Signs: Vital Signs - 24 hr 03/22/19 18:15 Temperature 97.0 F L Pulse Rate 81 Respiratory 20 Rate Blood Pressure 128/73 - Physical General Appearance: Yes: Within Normal Limits HEENTM: Yes: Within Normal Limits Respiratory: Yes: Lungs Clear, Normal Breath Sounds, No Respiratory Distress Neck: Yes: Supple Breast: Yes: Breast Exam Deferred Cardiology: Yes: Regular Rhythm, Regular Rate Abdominal: Yes: Normal Bowel Sounds Genitourinary: Yes: Within Normal Limits Back: Yes: Normal Inspection Musculoskeletal: Yes: Within Normal Limits Extremities: Yes: Normal Inspection Neurological: Yes: Within Normal Limits Integumentary: Yes: Warm Lymphatic: Yes: Within Normal Limits - Diagnostic (1) Anxiety Current Visit: Yes Status: Chronic (2) Asthma Current Visit: Yes Status: Chronic Qualifiers: Asthma severity: mild Asthma persistence: intermittent Asthma complication type: uncomplicated Qualified Code(s): J45.20 - Mild intermittent asthma, uncomplicated (3) BPH (benign prostatic hypertrophy) Current Visit: Yes Status: Chronic Qualifiers: Lower urinary tract symptom presence: symptoms absent Qualified Code(s): N40.0 - Benign prostatic hyperplasia without lower urinary tract symptoms (4) Cirrhosis of liver Current Visit: Yes Status: Chronic Qualifiers: Hepatic cirrhosis type: unspecified hepatic cirrhosis Ascites presence: unspecified Qualified Code(s): K74.60 - Unspecified cirrhosis of liver (5) Cocaine dependence Current Visit: Yes Status: Chronic Qualifiers: Substance use status: uncomplicated Qualified Code(s): F14.20 - Cocaine dependence, uncomplicated (6) HIV (human immunodeficiency virus infection) Current Visit: No Status: Chronic Qualifiers: HIV symptom status: unspecified Qualified Code(s): B20 - Human immunodeficiency virus [HIV] disease (7) HLD (hyperlipidemia) Current Visit: Yes Status: Chronic (8) Hepatitis C Current Visit: Yes Status: Chronic Qualifiers: Viral hepatitis chronicity: chronic Hepatic coma status: without hepatic coma Qualified Code(s): B18.2 - Chronic viral hepatitis C (9) History of asthma Current Visit: No Status: Chronic (10) History of cirrhosis of liver Current Visit: No Status: Chronic (11) History of herpes genitalis Current Visit: Yes Status: Chronic (12) Hypertension Current Visit: No Status: Chronic Qualifiers: Hypertension type: essential hypertension Qualified Code(s): I10 - Essential (primary) hypertension (13) Nicotine dependence Current Visit: Yes Status: Chronic Qualifiers: Nicotine product type: cigarettes Substance use status: uncomplicated Qualified Code(s): F17.210 - Nicotine dependence, cigarettes, uncomplicated (14) Opioid dependence Current Visit: Yes Status: Chronic (15) Depression Current Visit: Yes Status: Suspected Qualifiers: Cleared for Admission S - Detox or Rehab [facility] Level of Care: Observation Bed Claeared for Rehab Admission: Yes Breathalyzer - Breathalyzer Breathalyzer: 0 Urine Drug Screen - Test Device Lot number: [id number] Expiration date: 11/23/20 - Control Is test valid?: Yes - Results Drug screen NEGATIVE: No Urine drug screen results: THC-Marijuana, ANGIE-Cocaine, MTD-Methadone Inpatient Rehab Admission - Rehab Decision to Admit Inpatient rehab admission?: Yes - Initial Determination Are CD services needed?: No Free of communicable disease: No Not in need of hospitalization: Yes - Rehab Admission Criteria Previous failed treatment: Yes Poor recovery environment: Yes Comorbidities: Yes Lacks judgement: Yes Patient is meeting Inpatient Rehab admission criteria:: Yes
[2019-03-22] MEDS ORDERED: guaiFENesin 200 MG/10 ML 10 ML UNIT-DOSE CUPS PO PRN (21:24)
[2019-03-22] MEDS ORDERED: MAGNESIUM HYDROX 2400MG/30ML ORAL SUSPENSION 30 ML CUP PO PRN (21:24)
[2019-03-22] MEDS ORDERED: P-EPHED 60MG/TRIPROLIDI 2.5MG TABLET PO PRN (21:24)
[2019-03-22] MEDS ORDERED: IBUPROFEN 400 MG TABLET (FP) PO PRN (21:24)
[2019-03-22] MEDS ORDERED: ACETAMINOPHEN 325 MG TABLET (FP) PO PRN (21:24)
[2019-03-22] MEDS ORDERED: NICOTINE POLACRILEX 2 MG GUM BUC PRN (21:24)
[2019-03-22] MEDS ORDERED: LOPERAMIDE HCL 2 MG CAPSULE PO PRN (21:24)
[2019-03-22] MEDS ORDERED: MAGNESIUM CITRATE 300 ML BOTTLE PO PRN (21:24)
[2019-03-22] MEDS ORDERED: MENTHOL/PHENOL 1 EACH UD MM PRN (21:24)
[2019-03-22] MEDS ORDERED: MAG HYDROX/AL HYDROX/SIMETH 30 ML UNIT-DOSE CUP PO PRN (21:24)
[2019-03-22] MEDS ORDERED: ALBUTEROL SO4 8 GM HFA INHALER IH PRN (21:26)
[2019-03-22] MEDS: valACYclovir HCL 500 MG TABLET (FP) PO SCH (23:12)
[2019-03-22] MEDS: MELATONIN 5 MG TABLETS PO PRN (23:12)
[2019-03-22] MEDS: THIAMINE HCL 100 MG TABLET (FP) PO SCH (23:13)
[2019-03-22] MEDS: NYSTATIN 500,000 UNITS/5 ML SUSPENSION PO SCH (23:13)
[2019-03-23] MEDS: NYSTATIN 500,000 UNITS/5 ML SUSPENSION PO SCH ×3 (06:16→17:44)
[2019-03-23] MEDS: TAMSULOSIN HCL 0.4 MG CAP PO SCH (08:16)
[2019-03-23] MEDS: valACYclovir HCL 500 MG TABLET (FP) PO SCH ×2 (10:16→21:14)
[2019-03-23] MEDS: ASPIRIN COATED 81 MG TABLET.EC PO SCH (10:16)
[2019-03-23] MEDS: amLODIPine BESYLATE 10 MG TABLET (FP) PO SCH (10:16)
[2019-03-23] MEDS: PRENATAL VITAMINS W/ FOLIC ACID TABLET (FP) PO SCH (10:16)
[2019-03-23] MEDS: NICOTINE 14 MG/24 HOURS TOPICAL PATCH TD SCH (10:17)
[2019-03-23] MEDS: MELATONIN 5 MG TABLETS PO PRN (21:14)
[2019-03-23] MEDS: THIAMINE HCL 100 MG TABLET (FP) PO SCH (21:14)
[2019-03-24] MEDS: NYSTATIN 500,000 UNITS/5 ML SUSPENSION PO SCH ×4 (00:40→18:19)
[2019-03-24] MEDS: TAMSULOSIN HCL 0.4 MG CAP PO SCH (09:08)
[2019-03-24] MEDS: valACYclovir HCL 500 MG TABLET (FP) PO SCH ×2 (09:08→22:37)
[2019-03-24] MEDS: PRENATAL VITAMINS W/ FOLIC ACID TABLET (FP) PO SCH (09:08)
[2019-03-24] MEDS: ASPIRIN COATED 81 MG TABLET.EC PO SCH (09:08)
[2019-03-24] MEDS: NICOTINE 14 MG/24 HOURS TOPICAL PATCH TD SCH (09:08)
[2019-03-24] MEDS: amLODIPine BESYLATE 10 MG TABLET (FP) PO SCH (09:10)
[2019-03-24] MEDS: THIAMINE HCL 100 MG TABLET (FP) PO SCH (22:37)
[2019-03-25] MEDS: NYSTATIN 500,000 UNITS/5 ML SUSPENSION PO SCH ×5 (00:09→23:37)
[2019-03-25] MEDS: valACYclovir HCL 500 MG TABLET (FP) PO SCH ×2 (10:28→21:29)
[2019-03-25] MEDS: PRENATAL VITAMINS W/ FOLIC ACID TABLET (FP) PO SCH (10:28)
[2019-03-25] MEDS: amLODIPine BESYLATE 10 MG TABLET (FP) PO SCH (10:28)
[2019-03-25] MEDS: NICOTINE 14 MG/24 HOURS TOPICAL PATCH TD SCH (10:28)
[2019-03-25] MEDS: ASPIRIN COATED 81 MG TABLET.EC PO SCH (10:28)
[2019-03-25] MEDS: TAMSULOSIN HCL 0.4 MG CAP PO SCH (10:28)
[2019-03-25] MEDS: THIAMINE HCL 100 MG TABLET (FP) PO SCH (21:29)
[2019-03-25] MEDS: MELATONIN 5 MG TABLETS PO PRN (21:29)
[2019-03-26] MEDS: NYSTATIN 500,000 UNITS/5 ML SUSPENSION PO SCH ×4 (07:19→23:41)
[2019-03-26] MEDS: TAMSULOSIN HCL 0.4 MG CAP PO SCH (08:45)
[2019-03-26] MEDS ORDERED: PT OWN MED DRAWER 7, Y5N ONE (09:20)
[2019-03-26] MEDS: valACYclovir HCL 500 MG TABLET (FP) PO SCH ×2 (10:05→21:40)
[2019-03-26] MEDS: amLODIPine BESYLATE 10 MG TABLET (FP) PO SCH (10:05)
[2019-03-26] MEDS: PRENATAL VITAMINS W/ FOLIC ACID TABLET (FP) PO SCH (10:06)
[2019-03-26] MEDS: NICOTINE 14 MG/24 HOURS TOPICAL PATCH TD SCH (10:07)
[2019-03-26] MEDS: ASPIRIN COATED 81 MG TABLET.EC PO SCH (10:14)
[2019-03-26] MEDS: HYDROCORTISONE 0.5% TOPICAL CREAM 30 GM TUBE TP SCH ×2 (11:15→21:41)
--- NOTE | 2019-03-26 12:16 | PN ---
[facility] Progress Note Note: PATIENT SEEN FOR C/O FACIAL RASH. PATIENT C/O MILD ITCHING AND DRYNESS TO BOTH CHEEKS. DENIES ANY RECENT CHANGES IN DIET, DETERGENT AND SOAP. Vital Signs Temperature 97.7 F 03/26/19 06:56 Pulse Rate 73 03/26/19 06:56 Respiratory Rate 18 03/26/19 06:56 Blood Pressure 134/87 03/26/19 06:56 O2 Sat by Pulse Oximetry (%) PE: ALERT AND ORIENTED X 3 SKIN WARM AND DRY, + SMALL, MACULAR PATCH OF DRY SKIN ON CHEEKS MILD REDNESS EXT FULL ROM, AMB AD JULIANA A/P: FACIAL RASH WILL START HYDROCORTISONE 0.5% CR TO FACE BID X 7 DAYS MONITOR CLINICALLY
[2019-03-26] MEDS: MELATONIN 5 MG TABLETS PO PRN (21:40)
[2019-03-26] MEDS: THIAMINE HCL 100 MG TABLET (FP) PO SCH (21:40)
[2019-03-27] MEDS: NYSTATIN 500,000 UNITS/5 ML SUSPENSION PO SCH ×4 (06:25→23:53)
[2019-03-27] MEDS: TAMSULOSIN HCL 0.4 MG CAP PO SCH (08:57)
[2019-03-27] MEDS: amLODIPine BESYLATE 10 MG TABLET (FP) PO SCH (09:57)
[2019-03-27] MEDS: PRENATAL VITAMINS W/ FOLIC ACID TABLET (FP) PO SCH (09:57)
[2019-03-27] MEDS: valACYclovir HCL 500 MG TABLET (FP) PO SCH ×2 (09:57→21:00)
[2019-03-27] MEDS: ASPIRIN COATED 81 MG TABLET.EC PO SCH (09:57)
[2019-03-27] MEDS: HYDROCORTISONE 0.5% TOPICAL CREAM 30 GM TUBE TP SCH ×2 (09:59→21:01)
[2019-03-27] MEDS: NICOTINE 14 MG/24 HOURS TOPICAL PATCH TD SCH (09:59)
[2019-03-27] MEDS ORDERED: PT OWN MED DRAWER 7, Y5N ONE (10:00)
[2019-03-27] MEDS: THIAMINE HCL 100 MG TABLET (FP) PO SCH (21:00)
[2019-03-27] MEDS: MELATONIN 5 MG TABLETS PO PRN (21:00)
[2019-03-28] MEDS: NYSTATIN 500,000 UNITS/5 ML SUSPENSION PO SCH ×4 (06:15→23:00)
[2019-03-28] MEDS: ASPIRIN COATED 81 MG TABLET.EC PO SCH (09:31)
[2019-03-28] MEDS: PRENATAL VITAMINS W/ FOLIC ACID TABLET (FP) PO SCH (09:31)
[2019-03-28] MEDS: valACYclovir HCL 500 MG TABLET (FP) PO SCH ×2 (09:31→21:48)
[2019-03-28] MEDS: TAMSULOSIN HCL 0.4 MG CAP PO SCH (09:32)
[2019-03-28] MEDS: NICOTINE 14 MG/24 HOURS TOPICAL PATCH TD SCH (09:32)
[2019-03-28] MEDS: HYDROCORTISONE 0.5% TOPICAL CREAM 30 GM TUBE TP SCH ×2 (09:32→21:48)
[2019-03-28] MEDS: amLODIPine BESYLATE 10 MG TABLET (FP) PO SCH (09:32)
--- NOTE | 2019-03-28 16:08 | CONSULT ---
[facility] Psychiatric Consult - Data Date of interview: 03/28/19 Admission source: [facility] Identifying data: Direct admission to [address] for this 59 y/o male, self-referred for rehabilitative care to address substance use disorders (cocaine, heroin, alcohol). Patient is single without children, unemployed, domiciled ([place] setting) and supported on [employer] benefits. Substance Abuse History: Reviewed with the patient. This substance abuse profile , reported at [facility], is confirmed by the patient as accurate. Details as follows : Smoking history: Current every day smoker. Have you smoked in the past 12 months: Yes. Aproximately how many cigarettes per day: 20. Cigars Per Day: 0. Hx Chewing Tobacco Use: No. Initiated information on smoking cessation: Yes. 'Breaking Loose' booklet given: 03/22/19. - Substance & Tx. History. Hx Alcohol Use: Yes. Hx Substance Use: Yes. Substance Use Type: Alcohol, Cocaine. Hx Substance Use Treatment: Yes ([facility]). - Substances abused. Alcohol. Substance route: Oral. Frequency: Daily. Amount used: 1 pt. vodka, 2 six pks beers ( 12 oz cans ). Age of first use: 17. Date of last use: 03/21/19. Cocaine. Substance route: Smoking. Frequency: Daily. Amount used: $300. Age of first use: 34. Date of last use: 03/22/19. Crack. Substance route: Smoking. Frequency: Daily. Amount used : $300. Age of first use: 34. Date of last use: 03/21/19. Heroin. Substance route: Inhalation. Frequency: 3-6 times per week. Amount used: 6 bags. Age of first use: 27. Date of last use: 01/22/19 Medical History: Consistent with dyslipidemia, antecedent of surgical intervention for laceration of right wrist (1983), HIV infection since 1985 (on medications), herpes genitalis, bronchial asthma, hypertension, cirrhosis of liver, hepatitis C and BPH (benign prostatic hyperplasia). Past history of treatment for gonorrhea. Psychiatric History: Patient presesnts with a history of multiple psychiatric hospitalizations ([facility], [facility], [facility]). Patient has been diagnosed with Schizoaffective Disorder, Bipolar Disorder. Additional diagnosis : ADHD (age 9). Mr Up is maintained on seroquel 300 mg/hs and he is assigned to a psychiatrist at the [facility] OPD clinic in [facility]. Chronically non-adherent to OPD care + psychotropic medications. Patient is known to utilize local [facility] settings for medications refills (has not seen his psychiatrist for past THREE months, as per own account ). History of multiple suicide attempts via various means which includes wrist- cutting (1983 + 2011), overdose with pills and confrontations with [employer]. Physical/Sexual Abuse/Trauma History: Patient declines discussion. Additional Comment: Urine drug screen results: THC-Marijuana, ANGIE-Cocaine, MTD- Methadone. Noted. Mental Status Exam - Mental Status Exam Alert and Oriented to: Time, Place, Person Cognitive Function: Good Patient Appearance: Unkempt, Disheveled Mood: Withdrawn, Anxious Affect: Mood Congruent, Blunted Patient Behavior: Fatigued, Cooperative Speech Pattern: Clear Voice Loudness: Normal Thought Process: Goal Oriented Thought Disorder: Not Present Hallucinations: Denies Suicidal Ideation: Denies Homicidal Ideation: Denies Insight/Judgement: Poor Sleep: Poorly, Difficulty falling asleep Appetite: Good Muscle strength/Tone: Normal Gait/Station: Normal Psychiatric Findings - Problem List (Napoleon 1, 2,3) (1) Opioid dependence Current Visit: Yes Status: Chronic (2) Cocaine dependence Current Visit: Yes Status: Chronic Qualifiers: Substance use status: uncomplicated Qualified Code(s): F14.20 - Cocaine dependence, uncomplicated (3) Nicotine dependence Current Visit: Yes Status: Chronic Qualifiers: Nicotine product type: cigarettes Substance use status: uncomplicated Qualified Code(s): F17.210 - Nicotine dependence, cigarettes, uncomplicated (4) Substance induced mood disorder Current Visit: Yes Status: Chronic (5) Schizoaffective disorder Current Visit: Yes Status: Chronic Qualifiers: Schizoaffective disorder type: unspecified Qualified Code(s): F25.9 - Schizoaffective disorder, unspecified Comment: As per self-report and old records. Not compliant with OPD care. (6) Insomnia Current Visit: Yes Status: Chronic (7) Non-compliance Current Visit: Yes Status: Chronic - Initial Treatment Plan Initial Treatment Plan: Psychoeducation. Sleep hygiene. Groups. AA/NA meetings. Relapse prevention (MAT) to be revisited with the patient in educational sessions throughout hospital course. In view of patient's chronic history of non -adherence with aftercare (has not taken seroquel for more tahn TWO weeks as per self-report), seroquel is resumed at the dose of 200 mg po hs. Side effects/ benefits discussed in this session. Mr Up is in agreement with this plan of care. Observation.
[2019-03-28] MEDS ORDERED: PT OWN MED DRAWER 7, Y5N ONE (20:03)
[2019-03-28] MEDS: THIAMINE HCL 100 MG TABLET (FP) PO SCH (21:48)
[2019-03-28] MEDS: QUEtiapine FUMARATE 200 MG TABLET PO SCH (21:48)
[2019-03-29] MEDS: NYSTATIN 500,000 UNITS/5 ML SUSPENSION PO SCH ×3 (06:07→17:43)
[2019-03-29] MEDS: TAMSULOSIN HCL 0.4 MG CAP PO SCH (08:55)
[2019-03-29] MEDS: PRENATAL VITAMINS W/ FOLIC ACID TABLET (FP) PO SCH (09:48)
[2019-03-29] MEDS: ASPIRIN COATED 81 MG TABLET.EC PO SCH (09:48)
[2019-03-29] MEDS: valACYclovir HCL 500 MG TABLET (FP) PO SCH ×2 (09:48→21:05)
[2019-03-29] MEDS: amLODIPine BESYLATE 10 MG TABLET (FP) PO SCH (09:48)
[2019-03-29] MEDS: NICOTINE 14 MG/24 HOURS TOPICAL PATCH TD SCH (09:49)
[2019-03-29] MEDS: HYDROCORTISONE 0.5% TOPICAL CREAM 30 GM TUBE TP SCH ×2 (09:49→21:06)
[2019-03-29] MEDS: QUEtiapine FUMARATE 200 MG TABLET PO SCH (21:05)
[2019-03-29] MEDS: THIAMINE HCL 100 MG TABLET (FP) PO SCH (21:05)
[2019-03-30] MEDS: NYSTATIN 500,000 UNITS/5 ML SUSPENSION PO SCH ×5 (00:09→23:46)
[2019-03-30] MEDS: TAMSULOSIN HCL 0.4 MG CAP PO SCH (08:33)
[2019-03-30] MEDS: PRENATAL VITAMINS W/ FOLIC ACID TABLET (FP) PO SCH (09:33)
[2019-03-30] MEDS: valACYclovir HCL 500 MG TABLET (FP) PO SCH ×2 (09:34→21:27)
[2019-03-30] MEDS: cloNIDine HCL 0.1 MG TABLET PO PRN (09:34)
[2019-03-30] MEDS: ASPIRIN COATED 81 MG TABLET.EC PO SCH (09:34)
[2019-03-30] MEDS: amLODIPine BESYLATE 10 MG TABLET (FP) PO SCH (09:34)
[2019-03-30] MEDS: HYDROCORTISONE 0.5% TOPICAL CREAM 30 GM TUBE TP SCH ×2 (09:35→21:28)
[2019-03-30] MEDS: NICOTINE 14 MG/24 HOURS TOPICAL PATCH TD SCH (09:35)
[2019-03-30] MEDS: QUEtiapine FUMARATE 200 MG TABLET PO SCH (21:27)
[2019-03-30] MEDS: THIAMINE HCL 100 MG TABLET (FP) PO SCH (21:27)
[2019-03-31] MEDS: NYSTATIN 500,000 UNITS/5 ML SUSPENSION PO SCH ×4 (06:27→23:14)
[2019-03-31] MEDS: TAMSULOSIN HCL 0.4 MG CAP PO SCH (08:54)
[2019-03-31] MEDS: PRENATAL VITAMINS W/ FOLIC ACID TABLET (FP) PO SCH (09:54)
[2019-03-31] MEDS: valACYclovir HCL 500 MG TABLET (FP) PO SCH ×2 (09:54→21:38)
[2019-03-31] MEDS: amLODIPine BESYLATE 10 MG TABLET (FP) PO SCH (09:54)
[2019-03-31] MEDS: ASPIRIN COATED 81 MG TABLET.EC PO SCH (09:54)
[2019-03-31] MEDS: cloNIDine HCL 0.1 MG TABLET PO PRN (09:54)
[2019-03-31] MEDS: HYDROCORTISONE 0.5% TOPICAL CREAM 30 GM TUBE TP SCH ×2 (09:55→21:39)
[2019-03-31] MEDS: NICOTINE 14 MG/24 HOURS TOPICAL PATCH TD SCH (09:55)
[2019-03-31] MEDS: QUEtiapine FUMARATE 200 MG TABLET PO SCH (21:38)
[2019-03-31] MEDS: THIAMINE HCL 100 MG TABLET (FP) PO SCH (21:38)
[2019-04-01] MEDS: NYSTATIN 500,000 UNITS/5 ML SUSPENSION PO SCH ×3 (06:05→18:00)
[2019-04-01] MEDS: ASPIRIN COATED 81 MG TABLET.EC PO SCH (10:59)
[2019-04-01] MEDS: amLODIPine BESYLATE 10 MG TABLET (FP) PO SCH (10:59)
[2019-04-01] MEDS: TAMSULOSIN HCL 0.4 MG CAP PO SCH (10:59)
[2019-04-01] MEDS: cloNIDine HCL 0.1 MG TABLET PO PRN (10:59)
[2019-04-01] MEDS: NICOTINE 14 MG/24 HOURS TOPICAL PATCH TD SCH (11:00)
[2019-04-01] MEDS: PRENATAL VITAMINS W/ FOLIC ACID TABLET (FP) PO SCH (11:00)
[2019-04-01] MEDS: HYDROCORTISONE 0.5% TOPICAL CREAM 30 GM TUBE TP SCH ×2 (11:00→21:23)
[2019-04-01] MEDS: valACYclovir HCL 500 MG TABLET (FP) PO SCH ×2 (11:01→21:22)
[2019-04-01] MEDS: QUEtiapine FUMARATE 200 MG TABLET PO SCH (21:22)
[2019-04-01] MEDS: THIAMINE HCL 100 MG TABLET (FP) PO SCH (21:22)
[2019-04-02] MEDS: NYSTATIN 500,000 UNITS/5 ML SUSPENSION PO SCH ×4 (00:10→18:36)
[2019-04-02] MEDS: TAMSULOSIN HCL 0.4 MG CAP PO SCH (08:54)
[2019-04-02] MEDS: ASPIRIN COATED 81 MG TABLET.EC PO SCH (09:54)
[2019-04-02] MEDS: valACYclovir HCL 500 MG TABLET (FP) PO SCH ×2 (09:54→21:37)
[2019-04-02] MEDS: PRENATAL VITAMINS W/ FOLIC ACID TABLET (FP) PO SCH (09:54)
[2019-04-02] MEDS: amLODIPine BESYLATE 10 MG TABLET (FP) PO SCH (09:54)
[2019-04-02] MEDS: NICOTINE 14 MG/24 HOURS TOPICAL PATCH TD SCH (09:55)
[2019-04-02] MEDS: QUEtiapine FUMARATE 200 MG TABLET PO SCH (21:37)
[2019-04-02] MEDS: THIAMINE HCL 100 MG TABLET (FP) PO SCH (21:37)
[2019-04-03] MEDS: NYSTATIN 500,000 UNITS/5 ML SUSPENSION PO SCH ×5 (00:24→23:13)
[2019-04-03] MEDS: TAMSULOSIN HCL 0.4 MG CAP PO SCH (08:36)
[2019-04-03] MEDS: NICOTINE 14 MG/24 HOURS TOPICAL PATCH TD SCH (10:41)
[2019-04-03] MEDS: amLODIPine BESYLATE 10 MG TABLET (FP) PO SCH (10:41)
[2019-04-03] MEDS: PRENATAL VITAMINS W/ FOLIC ACID TABLET (FP) PO SCH (10:41)
[2019-04-03] MEDS: ASPIRIN COATED 81 MG TABLET.EC PO SCH (10:42)
[2019-04-03] MEDS: valACYclovir HCL 500 MG TABLET (FP) PO SCH ×2 (10:42→21:18)
--- NOTE | 2019-04-03 15:09 | PN ---
[facility] Progress Note (SOAP) Subjective: Patient to be discharged tomorrow. During his stay in rehab, he attended all groups including Seeking safety, Relapse Prevention, Anger Management, Steps 1-3 , and had individual counseling sessions with his counselor. He developed a discharge plan with his counselor. Objective: A+O x3, no neurological deficits noted, PERRLA, heart sounds regular, lungs clear, abd soft, non-tender, non-distended.+BS. Skin clear, full ROM and weight bearing. Vital Signs (72 hours) 04/01/19 04/01/19 04/01/19 00:30 03:30 07:01 Temperature 97.6 F Pulse Rate 72 Respiratory 18 20 18 Rate Blood Pressure 128/76 04/01/19 04/02/19 04/02/19 13:31 03:30 06:49 Temperature 97.5 F L Pulse Rate 82 82 Respiratory 18 18 Rate Blood Pressure 150/89 120/83 04/03/19 04/03/19 04/03/19 00:30 03:30 07:09 Temperature 97.2 F L Pulse Rate 71 Respiratory 18 18 19 Rate Blood Pressure 117/79 04/03/19 15:16 Assessment: Medically stable for discharge Discharge Dx: HIV infection HEP C Asthma HTN Cirrhosis SUbstance abuse, chronic 04/03/19 15:17 Plan: Patient will receive aftercare at [facility] and medical care at [facility] outpatient. Prescriptions for home meds transmitted to pharmacy.
[2019-04-03] MEDS: THIAMINE HCL 100 MG TABLET (FP) PO SCH (21:17)
[2019-04-03] MEDS: QUEtiapine FUMARATE 200 MG TABLET PO SCH (21:18)
--- NOTE | 2019-04-04 06:28 | PN ---
S Progress Note Note: Patient is scheduled for discharge today. Script for 30 days supply of medication is electronically transmitted to [facility] at [address] [place], [place] [id number]
[2019-04-04] MEDS: NYSTATIN 500,000 UNITS/5 ML SUSPENSION PO SCH (06:34)
[2019-04-04 06:50] VITALS: TEMP 97
[2019-04-04 09:11] VITALS: BP 136/82; PULSE 103
[2019-04-04] MEDS: valACYclovir HCL 500 MG TABLET (FP) PO SCH (09:21)
[2019-04-04] MEDS: PRENATAL VITAMINS W/ FOLIC ACID TABLET (FP) PO SCH (09:21)
[2019-04-04] MEDS: amLODIPine BESYLATE 10 MG TABLET (FP) PO SCH (09:21)
[2019-04-04] MEDS ORDERED: PT OWN MED DRAWER 7, Y5N ONE (09:21)
[2019-04-04] MEDS: NICOTINE 14 MG/24 HOURS TOPICAL PATCH TD SCH (09:22)
[2019-04-04] MEDS: ASPIRIN COATED 81 MG TABLET.EC PO SCH (09:22)
[2019-04-04] MEDS: TAMSULOSIN HCL 0.4 MG CAP PO SCH (09:22)
== END 2019-04-04 09:25 | disposition home or self-care (01) | DRG 772 ==
LOC: YASAS 17:06 → Y3W 21:40
PROVIDERS: ADMIT Neuromusculoskeletal Medicine & OMM; ATTEND Neuromusculoskeletal Medicine & OMM
PROC: HZ42ZZZ Group Counseling for Substance Abuse Treatment, Cognitive-Behavioral (ICD-10-PCS; principal; 2019-03-22)
DX: F11.20 Opioid dependence, uncomplicated (principal); F14.20 Cocaine dependence, uncomplicated; F17.210 Nicotine dependence, cigarettes, uncomplicated; F19.24 Other psychoactive substance dependence with psychoactive substance-induced mood disorder; F25.9 Schizoaffective disorder, unspecified; F41.8 Other specified anxiety disorders; F31.9 Bipolar disorder, unspecified; F32.9 Major depressive disorder, single episode, unspecified; Z21 Asymptomatic human immunodeficiency virus [HIV] infection status; B18.2 Chronic viral hepatitis C; G47.00 Insomnia, unspecified; I10 Essential (primary) hypertension; J45.909 Unspecified asthma, uncomplicated; E78.5 Hyperlipidemia, unspecified; K74.60 Unspecified cirrhosis of liver; N40.0 Benign prostatic hyperplasia without lower urinary tract symptoms; R21 Rash and other nonspecific skin eruption; D64.9 Anemia, unspecified; Z91.5 Personal history of self-harm; Z86.19 Personal history of other infectious and parasitic diseases
CPT/HCPCS: J0735

== ENCOUNTER 2019-11-08 16:28 | Inpatient (IN) | payer OTHER ==
--- NOTE | 2019-11-08 19:27 | BHS.RME ---
Substance Use & Tx History - Substance Use History Alcohol Substance amount: 1 pint vodka Frequency of use: Daily (x 15-20 years) Substance route: Oral Date of Last Use: 11/08/19 (1 pm) Cocaine (Crack) Substance amount: $200 Frequency of use: Daily Substance route: Smoking Nicotine Substance amount: 20 Frequency of use: Daily Substance route: Smoking Physical/Psych/Mental Status - Behavior Eye Contact: Normal - Cooperativeness Cooperativeness: Cooperative - Thinking Thought Processes: Logical Thought content: Future oriented (Wants to stop using.) - Physical Health Problems Is patient presently having any pain?: Yes (Finger tips from lighting cocaine) Does patient presently have any injuries (include location): No Does patient currently have a fever: No Is patient : No CIWA Nausea/Vomitin-No Nausea/No Vomiting Muscle Tremors: 3 Anxiety: 4-Mod. Anxious/Guarded Agitation: 3 Paroxysmal Sweats: 3 (Increased facial moisture) Orientation: 0-Oriented Tacttile Disturbances: 0-None Auditory Disturbances: 0-None Visual Disturbances: 0-None Headache: 0-None Present CIWA-Ar Total Score: 13
[2019-11-08 20:10] VITALS: BMI 27.2
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
[2019-11-08] MEDS ORDERED: ALBUTEROL SO4 HFA INHALER IH PRN (20:37)
[2019-11-08] MEDS ORDERED: DICYCLOMINE HCL 10 MG CAPSULE PO PRN (20:38)
[2019-11-08] MEDS ORDERED: IBUPROFEN 400 MG TABLET (FP) PO PRN (20:38)
[2019-11-08] MEDS ORDERED: BISMUTH SUBSALICYLATE 524 MG/30 ML UD PO PRN (20:38)
[2019-11-08] MEDS ORDERED: MAG HYDROX/AL HYDROX/SIMETH 30 ML UNIT-DOSE CUP PO PRN (20:38)
[2019-11-08] MEDS ORDERED: hydrOXYzine PAMOATE 25 MG CAPSULE (FP) PO PRN (20:38)
[2019-11-08] MEDS ORDERED: MENTHOL/PHENOL 1 EACH UD MM PRN (20:38)
[2019-11-08] MEDS ORDERED: NICOTINE POLACRILEX 2 MG GUM BUC PRN (20:38)
[2019-11-08] MEDS ORDERED: ACETAMINOPHEN 325 MG TABLET (FP) PO PRN ×2 (20:38)
[2019-11-08] MEDS ORDERED: MAGNESIUM HYDROX 2400MG/30ML ORAL SUSPENSION 30 ML CUP PO PRN (20:38)
[2019-11-08] MEDS ORDERED: ONDANSETRON *ODT* 4 MG TABLET SL PRN (20:38)
[2019-11-08] MEDS ORDERED: METHOCARBAMOL 500 MG TABLET PO PRN (20:38)
[2019-11-08] MEDS ORDERED: MAGNESIUM CITRATE 300 ML BOTTLE PO PRN (20:38)
[2019-11-08] MEDS ORDERED: guaiFENesin 200 MG/10 ML 10 ML UNIT-DOSE CUPS PO PRN (20:38)
[2019-11-08] MEDS ORDERED: P-EPHED 60MG/TRIPROLIDI 2.5MG TABLET PO PRN (20:38)
[2019-11-08] MEDS ORDERED: diazePAM 5 MG TABLET PO PRN (20:41)
[2019-11-08] MEDS ORDERED: MELATONIN 5 MG TABLETS PO PRN (22:00)
[2019-11-08] MEDS: diazePAM 5 MG TABLET PO SCH (22:48)
[2019-11-08] MEDS: THIAMINE HCL 100 MG TABLET (FP) PO SCH (22:49)
[2019-11-08] MEDS: SILVER SULFADIAZINE 1% TOP CREAM 50 GM JAR TP SCH (22:52)
[2019-11-08] MEDS: amLODIPine BESYLATE 10 MG TABLET (FP) PO SCH (22:52)
[2019-11-09] MEDS ORDERED: NYSTATIN 500,000 UNITS/5 ML SUSPENSION PO SCH
[2019-11-09] MEDS: diazePAM 5 MG TABLET PO SCH ×3 (07:32→22:24)
--- NOTE | 2019-11-09 09:39 | CONSULT ---
[facility] Psychiatric Consult - Data Date of interview: 11/09/19 Admission source: [facility] Identifying data: Patient is a 59 year old but [place]/ Citizen [place] male, without children, unemployed, domiciled, and is supported by [email or web address]. This is one of multiple admissions for patient. Patient admitted to for alcohol and cocaine dependence. Substance Abuse History: Smoking Cessation. Smoking history: Current every day smoker. Have you smoked in the past 12 months: Yes. Aproximately how many cigarettes per day: 20. Cigars Per Day: 0. Hx Chewing Tobacco Use: No. Initiated information on smoking cessation: Yes. 'Breaking Loose' booklet given : 11/08/19. - Substance & Tx. History. Hx Alcohol Use: Yes. Hx Substance Use : Yes. Substance Use Type: Alcohol, Cocaine. Hx Substance Use Treatment: Yes ( [facility]). - Substances abused. Alcohol. Substance route: Oral. Frequency: Daily. Amount used: 1 pint / 2 of 40 ounces of beer. Age of first use: 14. Date of last use: 11/08/19. Cocaine. Substance route: Smoking. Frequency: Daily. Amount used: 200 hundred dollars. Age of first use: 34. Date of last use: 11/07/19 Medical History: History of dyslipidemia, antecedent of surgical intervention for laceration of right wrist (1983), HIV infection since 1985 (on medications) , herpes genitalis, bronchial asthma, hypertension, cirrhosis of liver, hepatitis C and BPH (benign prostatic hyperplasia). Past history of treatment for gonorrhea. Psychiatric History: Patient's first psychiatric contact was at 9 years of age after his mother took him to see a psychiatrist due to behavior issues. Reports being diagnosed with Mood disorder and prescribed psychotropic medications. Patient reports history of multiple psychiatric hospitalizations ([facility], [facility] ([address]) and most recently at [facility] in 2019 for suicidal thoughts. States he was prescribed seroquel 200mg HS + Klonopin 2.5mg daily and was diagnosed with schizophrenia and bipolar disorder. At present patient denies auditory/visual hallucinations, suicidal/homicidal ideation. Physical/Sexual Abuse/Trauma History: denies. Mental Status Exam - Mental Status Exam Alert and Oriented to: Time, Place, Person Cognitive Function: Good Patient Appearance: Well Groomed Mood: Withdrawn Affect: Mood Congruent Patient Behavior: Appropriate, Cooperative Speech Pattern: Appropriate Voice Loudness: Normal Thought Process: Goal Oriented Thought Disorder: Not Present Hallucinations: Denies Suicidal Ideation: Denies Homicidal Ideation: Denies Insight/Judgement: Poor Sleep: Poorly Appetite: Fair Muscle strength/Tone: Normal Gait/Station: Normal Psychiatric Findings - Problem List ([place] 1, 2,3) (1) Alcohol dependence with uncomplicated withdrawal Status: Acute (2) Cocaine dependence Status: Acute Qualifiers: Substance use status: uncomplicated Qualified Code(s): F14.20 - Cocaine dependence, uncomplicated (3) Substance-induced sleep disorder Status: Acute (4) Schizoaffective disorder Status: Chronic Qualifiers: Schizoaffective disorder type: unspecified Qualified Code(s): F25.9 - Schizoaffective disorder, unspecified Comment: As per self-report and old records. Not compliant with OPD care. - Initial Treatment Plan Initial Treatment Plan: Psychoeducation provided. Detoxification in in progress. Will order Seroquel 200mg HS. Benefits and side effects discussed. Verbal consent given.
[2019-11-09 09:47] LABS: HEMATOCRIT 38.6 % (35.4-49); MCHC 33.8 g/dl (32.0-35.9); MEAN CELL VOLUME 94.8 fl (80-96); MEAN PLT VOLUME 7.9 fl (7.5-11.1); PLATELET COUNT 313 K/MM3 (134-434); RBC 4.07 M/mm3 (4.00-5.60); RDW 16.5 % (11.9-15.9); WHITE BLOOD COUNT 6.8 K/mm3 (4.0-10.0)
[2019-11-09 10:05] LABS: ALBUMIN 3.1 g/dl (3.4-5.0); BILIRUBIN,TOTAL 0.4 mg/dL (0.2-1); BLOOD UREA NITROGEN 30.9 mg/dL (7-18); CALCIUM 7.8 mg/dL (8.5-10.1); CREATININE 1.1 mg/dL (0.55-1.3); POTASSIUM 4.1 mmol/L (3.5-5.1); TOT PROT 8.1 g/dl (6.4-8.2)
[2019-11-09] MEDS: SULFAMETHOXAZOLE/TRIMETHOPRIM 800MG/160MG D.S. TABLET PO SCH (10:19)
[2019-11-09] MEDS: PRENATAL VITAMINS W/ FOLIC ACID TABLET (FP) PO SCH (10:19)
[2019-11-09] MEDS: TAMSULOSIN HCL 0.4 MG CAP PO SCH (10:20)
[2019-11-09] MEDS: amLODIPine BESYLATE 10 MG TABLET (FP) PO SCH (10:20)
[2019-11-09] MEDS: NICOTINE 21 MG/24 HOURS TOPICAL PATCH TD SCH (10:20)
[2019-11-09] MEDS: SILVER SULFADIAZINE 1% TOP CREAM 50 GM JAR TP SCH (10:21)
--- NOTE | 2019-11-09 11:17 | PN ---
S CIWA - CIWA Score Nausea/Vomitin Muscle Tremors: 2 Anxiety: 1-Mildly Anxious Agitation: 1-Slight > Activity Paroxysmal Sweats: 3 Orientation: 0-Oriented Tacttile Disturbances: 0-None Auditory Disturbances: 1-Very Mild Visual Disturbances: 1-Very Mild Sensitivity Headache: 0-None Present CIWA-Ar Total Score: 12 BHS Progress Note (SOAP) Subjective: Complaints of diarrhea, nausea, anxiety, light and sound sensitivity Objective: 11/09/19 11:15 Laboratory Last Values WBC 6.8 K/mm3 (4.0-10.0) 11/09/19 07:25 RBC 4.07 M/mm3 (4.00-5.60) 11/09/19 07:25 Hgb 13.0 GM/dL (11.7-16.9) 11/09/19 07:25 Hct 38.6 % (35.4-49) 11/09/19 07:25 MCV 94.8 fl (80-96) 11/09/19 07:25 MCH 32.0 pg (25.7-33.7) 11/09/19 07:25 MCHC 33.8 g/dl (32.0-35.9) 11/09/19 07:25 RDW 16.5 % (11.9-15.9) H 11/09/19 07:25 Plt Count 313 K/MM3 (134-434) D 11/09/19 07:25 MPV 7.9 fl (7.5-11.1) D 11/09/19 07:25 Sodium 138 mmol/L (136-145) 11/09/19 07:25 Potassium 4.1 mmol/L (3.5-5.1) 11/09/19 07:25 Chloride 108 mmol/L (98-107) H 11/09/19 07:25 Carbon Dioxide 23 mmol/L (21-32) 11/09/19 07:25 Anion Gap 6 MMOL/L (8-16) L 11/09/19 07:25 BUN 30.9 mg/dL (7-18) H 11/09/19 07:25 Creatinine 1.1 mg/dL (0.55-1.3) 11/09/19 07:25 Est GFR (CKD-EPI)AfAm 85.91 11/09/19 07:25 Est GFR (CKD-EPI)NonAf 74.12 11/09/19 07:25 Random Glucose 88 mg/dL (74-106) 11/09/19 07:25 Calcium 7.8 mg/dL (8.5-10.1) L 11/09/19 07:25 Total Bilirubin 0.4 mg/dL (0.2-1) 11/09/19 07:25 AST 31 U/L (15-37) 11/09/19 07:25 ALT 36 U/L (13-61) 11/09/19 07:25 Alkaline Phosphatase 108 U/L (45-117) 11/09/19 07:25 Total Protein 8.1 g/dl (6.4-8.2) 11/09/19 07:25 Albumin 3.1 g/dl (3.4-5.0) L 11/09/19 07:25 Vital Signs Temperature 97.3 F L 11/09/19 08:56 Pulse Rate 83 11/09/19 08:56 Respiratory Rate 18 11/09/19 08:56 Blood Pressure 140/92 11/09/19 08:56 O2 Sat by Pulse Oximetry (%) PE Gnl: WD, WN, in mild distress Mental status: normal Motor: in bed, moves limbs symmetrically Assessment: 11/09/19 11:16 1. Alcohol use disorder Plan: 1. Continue Valium withdrawal protocol
--- NOTE | 2019-11-09 12:11 | EKG ---
Test Reason : Blood Pressure : / mmHG Vent. Rate : 091 BPM Atrial Rate : 091 BPM P-R Int : 124 ms QRS Dur : 090 ms QT Int : 390 ms P-R-T Axes : 061 052 024 degrees QTc Int : 479 ms NORMAL SINUS RHYTHM MINIMAL VOLTAGE CRITERIA FOR LVH, MAY BE NORMAL VARIANT WHEN COMPARED WITH ECG OF 23-JAN-2019 21:01, NO SIGNIFICANT CHANGE WAS FOUND Confirmed by DREW CLEMENTE MD ([id number]) on 11/09/2019 12:11:30 PM Referred By: JOSE Confirmed By:DREW CLEMENTE MD
[2019-11-09] MEDS: THIAMINE HCL 100 MG TABLET (FP) PO SCH (22:24)
[2019-11-09] MEDS: QUEtiapine FUMARATE 200 MG TABLET PO SCH (22:25)
[2019-11-10] MEDS: diazePAM 5 MG TABLET PO SCH ×2 (07:09→18:23)
[2019-11-10] MEDS: amLODIPine BESYLATE 10 MG TABLET (FP) PO SCH (10:42)
[2019-11-10] MEDS: SULFAMETHOXAZOLE/TRIMETHOPRIM 800MG/160MG D.S. TABLET PO SCH (10:42)
[2019-11-10] MEDS: SILVER SULFADIAZINE 1% TOP CREAM 50 GM JAR TP SCH (10:43)
[2019-11-10] MEDS: TAMSULOSIN HCL 0.4 MG CAP PO SCH (10:43)
[2019-11-10] MEDS: NICOTINE 21 MG/24 HOURS TOPICAL PATCH TD SCH (10:43)
[2019-11-10] MEDS: PRENATAL VITAMINS W/ FOLIC ACID TABLET (FP) PO SCH (10:43)
--- NOTE | 2019-11-10 11:13 | PN ---
S CIWA - CIWA Score Nausea/Vomitin-No Nausea/No Vomiting Muscle Tremors: None Anxiety: 2 Agitation: 0-Normal Activity Paroxysmal Sweats: 2 Orientation: 0-Oriented Tacttile Disturbances: 0-None Auditory Disturbances: 0-None Visual Disturbances: 0-None Headache: 1-Very Mild CIWA-Ar Total Score: 5 BHS Progress Note (SOAP) Subjective: c/o mild withdrawal symptoms. Objective: 11/10/19 11:11 Vital Signs 11/10/19 11/10/19 11/10/19 03:30 05:25 08:57 Temperature 97.0 F L Pulse Rate 81 112 H Respiratory 18 18 18 Rate Blood Pressure 115/77 132/98 Laboratory Last Values WBC 6.8 K/mm3 (4.0-10.0) 11/09/19 07:25 RBC 4.07 M/mm3 (4.00-5.60) 11/09/19 07:25 Hgb 13.0 GM/dL (11.7-16.9) 11/09/19 07:25 Hct 38.6 % (35.4-49) 11/09/19 07:25 MCV 94.8 fl (80-96) 11/09/19 07:25 MCH 32.0 pg (25.7-33.7) 11/09/19 07:25 MCHC 33.8 g/dl (32.0-35.9) 11/09/19 07:25 RDW 16.5 % (11.9-15.9) H 11/09/19 07:25 Plt Count 313 K/MM3 (134-434) D 11/09/19 07:25 MPV 7.9 fl (7.5-11.1) D 11/09/19 07:25 Sodium 138 mmol/L (136-145) 11/09/19 07:25 Potassium 4.1 mmol/L (3.5-5.1) 11/09/19 07:25 Chloride 108 mmol/L (98-107) H 11/09/19 07:25 Carbon Dioxide 23 mmol/L (21-32) 11/09/19 07:25 Anion Gap 6 MMOL/L (8-16) L 11/09/19 07:25 BUN 30.9 mg/dL (7-18) H 11/09/19 07:25 Creatinine 1.1 mg/dL (0.55-1.3) 11/09/19 07:25 Est GFR (CKD-EPI)AfAm 85.91 11/09/19 07:25 Est GFR (CKD-EPI)NonAf 74.12 11/09/19 07:25 Random Glucose 88 mg/dL (74-106) 11/09/19 07:25 Calcium 7.8 mg/dL (8.5-10.1) L 11/09/19 07:25 Total Bilirubin 0.4 mg/dL (0.2-1) 11/09/19 07:25 AST 31 U/L (15-37) 11/09/19 07:25 ALT 36 U/L (13-61) 11/09/19 07:25 Alkaline Phosphatase 108 U/L (45-117) 11/09/19 07:25 Total Protein 8.1 g/dl (6.4-8.2) 11/09/19 07:25 Albumin 3.1 g/dl (3.4-5.0) L 11/09/19 07:25 RPR Titer Nonreactive (NONREACTIVE) 11/09/19 07:25 Labs noted. Assessment: 11/10/19 11:11 AOX3, in no acute respiratory distress. Full ROM, ambulating in the unit. Mild Withdrawal symptoms. For d/c tomorrow. Plan: continue detox.
[2019-11-10] MEDS: QUEtiapine FUMARATE 200 MG TABLET PO SCH (22:19)
[2019-11-10] MEDS: THIAMINE HCL 100 MG TABLET (FP) PO SCH (22:19)
[2019-11-11] MEDS ORDERED: diazePAM 5 MG TABLET PO ONE (06:00)
--- NOTE | 2019-11-11 09:06 | DS ---
[facility] Detox Discharge Summary Admission Date: 11/08/19 Discharge Date: 11/11/19 - History Present History: Alcohol Dependence Additional Comments: 59 years old male admitted on 11/08/19 for alcohol withdrawal sx management treated with valium detox regiment Mr Up has completed valium regiment and tolerated well seen by psychiatrist resume seroquel patient is alert oriented x 3 cardiac s1s2 regular rate rhythm respiratory clear lungs bilaterally on auscultation extremities full range of motion Pertinent Past History: patient requests month genvoya encourage Mr Up to following up with infectious disease primary care provider patient states that "all providers sent the prescription to my pharmacy, but you " discussed consistency is the [facility] for HIV treatment time for discharge: 45 minutes - Physical Exam Results Vital Signs: Vital Signs Temperature 97.2 F L 11/11/19 07:26 Pulse Rate 78 11/11/19 07:26 Respiratory Rate 19 11/11/19 07:26 Blood Pressure 104/72 11/11/19 07:26 O2 Sat by Pulse Oximetry (%) Pertinent Admission Physical Exam Findings: alcohol withdrawal Vital Signs Temperature 96.6 F L 11/11/19 08:37 Pulse Rate 92 H 11/11/19 08:37 Respiratory Rate 18 11/11/19 08:37 Blood Pressure 122/76 11/11/19 08:37 O2 Sat by Pulse Oximetry (%) Laboratory Last Values WBC 6.8 K/mm3 (4.0-10.0) 11/09/19 07:25 RBC 4.07 M/mm3 (4.00-5.60) 11/09/19 07:25 Hgb 13.0 GM/dL (11.7-16.9) 11/09/19 07:25 Hct 38.6 % (35.4-49) 11/09/19 07:25 MCV 94.8 fl (80-96) 11/09/19 07:25 MCH 32.0 pg (25.7-33.7) 11/09/19 07:25 MCHC 33.8 g/dl (32.0-35.9) 11/09/19 07:25 RDW 16.5 % (11.9-15.9) H 11/09/19 07:25 Plt Count 313 K/MM3 (134-434) D 11/09/19 07:25 MPV 7.9 fl (7.5-11.1) D 11/09/19 07:25 Sodium 138 mmol/L (136-145) 11/09/19 07:25 Potassium 4.1 mmol/L (3.5-5.1) 11/09/19 07:25 Chloride 108 mmol/L (98-107) H 11/09/19 07:25 Carbon Dioxide 23 mmol/L (21-32) 11/09/19 07:25 Anion Gap 6 MMOL/L (8-16) L 11/09/19 07:25 BUN 30.9 mg/dL (7-18) H 11/09/19 07:25 Creatinine 1.1 mg/dL (0.55-1.3) 11/09/19 07:25 Est GFR (CKD-EPI)AfAm 85.91 11/09/19 07:25 Est GFR (CKD-EPI)NonAf 74.12 11/09/19 07:25 Random Glucose 88 mg/dL (74-106) 11/09/19 07:25 Calcium 7.8 mg/dL (8.5-10.1) L 11/09/19 07:25 Total Bilirubin 0.4 mg/dL (0.2-1) 11/09/19 07:25 AST 31 U/L (15-37) 11/09/19 07:25 ALT 36 U/L (13-61) 11/09/19 07:25 Alkaline Phosphatase 108 U/L (45-117) 11/09/19 07:25 Total Protein 8.1 g/dl (6.4-8.2) 11/09/19 07:25 Albumin 3.1 g/dl (3.4-5.0) L 11/09/19 07:25 RPR Titer Nonreactive (NONREACTIVE) 11/09/19 07:25 lab noted bun elevation and low calcium patient will follow up with his infectious disease provider - Treatment Hospital Course: Detox Protocol Followed, Detoxed Safely, Responded well, Discharged Condition Good, Rehab Referral Accepted Patient has Accepted [facility] - Medication Discharge Medications: Ambulatory Orders Quetiapine Fumarate [Seroquel -] 300 mg PO BID #60 tablet 04/23/18 Sulfamethoxazole/Trimethoprim [Bactrim DS -] 1 each PO DAILY #30 tablet Valacyclovir HCl [Valtrex -] 500 mg PO BID #30 tablet 01/30/19 Albuterol Sulfate Inhaler - [Ventolin HFA Inhaler -] 2 puff IH Q4H PRN #1 inhaler 04/03/19 Amlodipine Besylate [Norvasc -] 10 mg PO DAILY #14 tablet 04/03/19 Aspirin Coated [Ecotrin -] 81 mg PO DAILY #14 tablet.ec 04/03/19 Elviteg/Cob/Emtri/Tenof Alafen [Genvoya (Non-Formulary)] 1 each PO DAILY #30 tablet 04/03/19 Fluticasone/Salmeterol [Advair 250-50 Diskus] 1 each IH DAILY #1 blst.w.dev 06/14 Nystatin Oral Suspension - [Nystatin Oral Susp 590678 Units/5 ML -] 500,000 units PO Q6HPO #1 cup 04/03/19 Tamsulosin HCl [Flomax -] 0.4 mg PO DAILY@0830 #14 cap.er.24h 04/03/19 Quetiapine Fumarate [Seroquel -] 200 mg PO HS #30 tablet 04/04/19 - Diagnosis (1) Alcohol dependence with uncomplicated withdrawal Status: Acute (2) Asthma Status: Chronic Qualifiers: Asthma severity: mild Asthma persistence: intermittent Asthma complication type: uncomplicated Qualified Code(s): J45.20 - Mild intermittent asthma, uncomplicated (3) BPH (benign prostatic hypertrophy) Status: Chronic Qualifiers: Lower urinary tract symptom presence: symptoms absent Qualified Code(s): N40.0 - Benign prostatic hyperplasia without lower urinary tract symptoms (4) Eczema Status: Chronic Qualifiers: Eczema type: unspecified Qualified Code(s): L30.9 - Dermatitis, unspecified (5) HIV (human immunodeficiency virus infection) Status: Chronic Qualifiers: HIV symptom status: asymptomatic Qualified Code(s): Z21 - Asymptomatic human immunodeficiency virus [HIV] infection status (6) HLD (hyperlipidemia) Status: Chronic Qualifiers: Hyperlipidemia type: pure hypertriglyceridemia Qualified Code(s): E78.1 - Pure hyperglyceridemia (7) Hepatitis C Status: Chronic Qualifiers: Viral hepatitis chronicity: chronic Hepatic coma status: without hepatic coma Qualified Code(s): B18.2 - Chronic viral hepatitis C (8) History of BPH Status: Chronic (9) History of asthma Status: Chronic (10) History of cirrhosis of liver Status: Chronic (11) Hypercholesterolemia Status: Chronic (12) Hypertension Status: Chronic Qualifiers: Hypertension type: essential hypertension Qualified Code(s): I10 - Essential (primary) hypertension (13) Nicotine dependence Status: Acute Qualifiers: Nicotine product type: cigarettes Substance use status: in withdrawal Qualified Code(s): F17.213 - Nicotine dependence, cigarettes, with withdrawal (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
[2019-11-11 10:55] VITALS: BP 122/76; PULSE 92; TEMP 96.6
== END 2019-11-11 11:42 | disposition home or self-care (01) | DRG 774 ==
LOC: YASAS 16:28 → Y3N 21:28
PROVIDERS: ADMIT Allergy & Immunology; ATTEND Allergy & Immunology
PROC: HZ2ZZZZ Detoxification Services for Substance Abuse Treatment (ICD-10-PCS; principal; 2019-11-08)
DX: F10.230 Alcohol dependence with withdrawal, uncomplicated (principal); F14.20 Cocaine dependence, uncomplicated; F17.210 Nicotine dependence, cigarettes, uncomplicated; F25.9 Schizoaffective disorder, unspecified; Z21 Asymptomatic human immunodeficiency virus [HIV] infection status; J45.20 Mild intermittent asthma, uncomplicated; L30.9 Dermatitis, unspecified; L40.8 Other psoriasis; E78.1 Pure hyperglyceridemia; E78.5 Hyperlipidemia, unspecified; N40.0 Benign prostatic hyperplasia without lower urinary tract symptoms; I10 Essential (primary) hypertension; L29.8 Other pruritus; A60.02 Herpesviral infection of other male genital organs; Z86.19 Personal history of other infectious and parasitic diseases; Z87.19 Personal history of other diseases of the digestive system; Z88.8 Allergy status to other drugs, medicaments and biological substances; Z91.013 Allergy to seafood
CPT/HCPCS: 36415; 80053; 85027; 86593; 93005; 93010

== ENCOUNTER 2020-08-05 12:18 | Inpatient (IN) | payer OTHER ==
[~2020-08-05 12:18] MED LIST changes: +ACETAMINOPHEN 325 MG TABLET (FP) PO PRN; +IBUPROFEN 400 MG TABLET (FP) PO PRN; +LOPERAMIDE HCL 2 MG CAPSULE PO PRN; +MAG HYDROX/AL HYDROX/SIMETH 30 ML UNIT-DOSE CUP PO PRN; +MAGNESIUM CITRATE 300 ML BOTTLE PO PRN; +MAGNESIUM HYDROX 2400MG/30ML ORAL SUSPENSION 30 ML CUP PO PRN; -MELATONIN 5 MG TABLETS PO PRN; +NICOTINE POLACRILEX 4 MG GUM BUC PRN; +P-EPHED 60MG/TRIPROLIDI 2.5MG TABLET PO PRN; +guaiFENesin 200 MG/10 ML 10 ML UNIT-DOSE CUPS PO PRN
[2020-08-05] MEDS ORDERED: ALBUTEROL SO4 HFA INHALER IH PRN (12:23)
[2020-08-05] MEDS ORDERED: HYDROCORTISONE 1% TOPICAL LOTION 118 ML BOTTLE TP SCH (14:00)
[2020-08-05] MEDS: TAMSULOSIN HCL 0.4 MG CAP PO SCH (21:55)
[2020-08-05] MEDS: valACYclovir HCL 500 MG TABLET (FP) PO SCH (21:56)
[2020-08-05] MEDS: HYDROCORTISONE 1% TOPICAL CREAM 30 GM TUBE TP SCH (21:58)
[2020-08-05] MEDS ORDERED: QUEtiapine FUMARATE 200 MG TABLET PO SCH (22:00)
[2020-08-05] MEDS: MELATONIN 5 MG TABLETS PO SCH (23:04)
[2020-08-05] MEDS: FLUTICASONE/SALMETEROL 100 MCG/50 MCG DISKUS IH SCH (23:04)
[2020-08-05] MEDS: THIAMINE HCL 100 MG TABLET (FP) PO SCH (23:05)
[2020-08-06] MEDS: ELVITEG/COB/EMTRI/TENOF (GENVOYA) TABLET (NF) PO SCH (07:35)
[2020-08-06] MEDS: valACYclovir HCL 500 MG TABLET (FP) PO SCH ×2 (09:51→21:23)
[2020-08-06] MEDS: amLODIPine BESYLATE 10 MG TABLET (FP) PO SCH (09:51)
[2020-08-06] MEDS: ASPIRIN COATED 81 MG TABLET.EC PO SCH (09:51)
[2020-08-06] MEDS: PRENATAL VITAMINS W/ FOLIC ACID TABLET (FP) PO SCH (09:52)
[2020-08-06] MEDS: FLUTICASONE/SALMETEROL 100 MCG/50 MCG DISKUS IH SCH ×2 (09:53→21:22)
[2020-08-06] MEDS: HYDROCORTISONE 1% TOPICAL CREAM 30 GM TUBE TP SCH ×2 (09:53→21:22)
[2020-08-06] MEDS: NICOTINE 21 MG/24 HOURS TOPICAL PATCH TD SCH (09:53)
[2020-08-06] MEDS: TAMSULOSIN HCL 0.4 MG CAP PO SCH (21:23)
[2020-08-06] MEDS: THIAMINE HCL 100 MG TABLET (FP) PO SCH (21:24)
[2020-08-06] MEDS: MELATONIN 5 MG TABLETS PO SCH (21:24)
[2020-08-06] MEDS: QUEtiapine FUMARATE 100 MG TABLET (FP) PO SCH (22:02)
[2020-08-07] MEDS: valACYclovir HCL 500 MG TABLET (FP) PO SCH ×2 (10:02→21:49)
[2020-08-07] MEDS: ASPIRIN COATED 81 MG TABLET.EC PO SCH (10:02)
[2020-08-07] MEDS: ELVITEG/COB/EMTRI/TENOF (GENVOYA) TABLET (NF) PO SCH (10:02)
[2020-08-07] MEDS: amLODIPine BESYLATE 10 MG TABLET (FP) PO SCH (10:02)
[2020-08-07] MEDS: PRENATAL VITAMINS W/ FOLIC ACID TABLET (FP) PO SCH (10:02)
[2020-08-07] MEDS: NICOTINE 21 MG/24 HOURS TOPICAL PATCH TD SCH (10:03)
[2020-08-07] MEDS: HYDROCORTISONE 1% TOPICAL CREAM 30 GM TUBE TP SCH ×2 (10:03→21:50)
[2020-08-07] MEDS: FLUTICASONE/SALMETEROL 100 MCG/50 MCG DISKUS IH SCH ×2 (10:04→21:50)
[2020-08-07] MEDS: TAMSULOSIN HCL 0.4 MG CAP PO SCH (21:49)
[2020-08-07] MEDS: THIAMINE HCL 100 MG TABLET (FP) PO SCH (21:49)
[2020-08-07] MEDS: MELATONIN 5 MG TABLETS PO SCH (21:49)
[2020-08-07] MEDS: QUEtiapine FUMARATE 100 MG TABLET (FP) PO SCH (21:49)
[2020-08-08] MEDS: amLODIPine BESYLATE 10 MG TABLET (FP) PO SCH (09:50)
[2020-08-08] MEDS: ELVITEG/COB/EMTRI/TENOF (GENVOYA) TABLET (NF) PO SCH (09:50)
[2020-08-08] MEDS: PRENATAL VITAMINS W/ FOLIC ACID TABLET (FP) PO SCH (09:50)
[2020-08-08] MEDS: valACYclovir HCL 500 MG TABLET (FP) PO SCH ×2 (09:50→21:41)
[2020-08-08] MEDS: ASPIRIN COATED 81 MG TABLET.EC PO SCH (09:50)
[2020-08-08] MEDS: NICOTINE 21 MG/24 HOURS TOPICAL PATCH TD SCH (09:51)
[2020-08-08] MEDS: HYDROCORTISONE 1% TOPICAL CREAM 30 GM TUBE TP SCH ×2 (09:51→21:42)
[2020-08-08] MEDS: FLUTICASONE/SALMETEROL 100 MCG/50 MCG DISKUS IH SCH ×2 (09:51→21:42)
[2020-08-08] MEDS: METHYL SALICYLATE/MENTHOL OINT 30 GM TUBE TP SCH ×2 (14:33→22:12)
[2020-08-08] MEDS: TOLNAFTATE 1% CREAM 15 GM TUBE TP SCH ×2 (14:33→21:42)
[2020-08-08] MEDS: THIAMINE HCL 100 MG TABLET (FP) PO SCH (21:41)
[2020-08-08] MEDS: QUEtiapine FUMARATE 100 MG TABLET (FP) PO SCH (21:41)
[2020-08-08] MEDS: TAMSULOSIN HCL 0.4 MG CAP PO SCH (21:41)
[2020-08-08] MEDS: MELATONIN 5 MG TABLETS PO SCH (21:42)
[2020-08-09] MEDS: ASPIRIN COATED 81 MG TABLET.EC PO SCH (09:28)
[2020-08-09] MEDS: amLODIPine BESYLATE 10 MG TABLET (FP) PO SCH (09:28)
[2020-08-09] MEDS: valACYclovir HCL 500 MG TABLET (FP) PO SCH ×2 (09:28→21:22)
[2020-08-09] MEDS: METHYL SALICYLATE/MENTHOL OINT 30 GM TUBE TP SCH ×2 (09:29→21:22)
[2020-08-09] MEDS: NICOTINE 21 MG/24 HOURS TOPICAL PATCH TD SCH (09:29)
[2020-08-09] MEDS: ELVITEG/COB/EMTRI/TENOF (GENVOYA) TABLET (NF) PO SCH (09:29)
[2020-08-09] MEDS: PRENATAL VITAMINS W/ FOLIC ACID TABLET (FP) PO SCH (09:29)
[2020-08-09] MEDS: HYDROCORTISONE 1% TOPICAL CREAM 30 GM TUBE TP SCH ×2 (09:29→21:22)
[2020-08-09] MEDS: TOLNAFTATE 1% CREAM 15 GM TUBE TP SCH ×2 (09:29→21:23)
[2020-08-09] MEDS: FLUTICASONE/SALMETEROL 100 MCG/50 MCG DISKUS IH SCH ×2 (09:29→21:22)
[2020-08-09] MEDS: METHOCARBAMOL 500 MG TABLET PO PRN (21:22)
[2020-08-09] MEDS: THIAMINE HCL 100 MG TABLET (FP) PO SCH (21:22)
[2020-08-09] MEDS: MELATONIN 5 MG TABLETS PO SCH (21:22)
[2020-08-09] MEDS: QUEtiapine FUMARATE 100 MG TABLET (FP) PO SCH (21:22)
[2020-08-09] MEDS: TAMSULOSIN HCL 0.4 MG CAP PO SCH (21:22)
[2020-08-10] MEDS: ELVITEG/COB/EMTRI/TENOF (GENVOYA) TABLET (NF) PO SCH (07:01)
[2020-08-10] MEDS: FLUTICASONE/SALMETEROL 100 MCG/50 MCG DISKUS IH SCH ×2 (09:30→21:25)
[2020-08-10] MEDS: HYDROCORTISONE 1% TOPICAL CREAM 30 GM TUBE TP SCH ×2 (09:30→21:25)
[2020-08-10] MEDS: NICOTINE 21 MG/24 HOURS TOPICAL PATCH TD SCH (09:30)
[2020-08-10] MEDS: METHYL SALICYLATE/MENTHOL OINT 30 GM TUBE TP SCH ×2 (09:30→21:25)
[2020-08-10] MEDS: PRENATAL VITAMINS W/ FOLIC ACID TABLET (FP) PO SCH (09:31)
[2020-08-10] MEDS: TOLNAFTATE 1% CREAM 15 GM TUBE TP SCH ×2 (09:31→21:25)
[2020-08-10] MEDS: valACYclovir HCL 500 MG TABLET (FP) PO SCH ×2 (09:31→21:25)
[2020-08-10] MEDS: ASPIRIN COATED 81 MG TABLET.EC PO SCH (09:31)
[2020-08-10] MEDS: amLODIPine BESYLATE 10 MG TABLET (FP) PO SCH (09:31)
[2020-08-10] MEDS: QUEtiapine FUMARATE 100 MG TABLET (FP) PO SCH (21:25)
[2020-08-10] MEDS: MELATONIN 5 MG TABLETS PO SCH (21:25)
[2020-08-10] MEDS: TAMSULOSIN HCL 0.4 MG CAP PO SCH (21:25)
[2020-08-10] MEDS: THIAMINE HCL 100 MG TABLET (FP) PO SCH (21:25)
[2020-08-11] MEDS: ASPIRIN COATED 81 MG TABLET.EC PO SCH (09:29)
[2020-08-11] MEDS: amLODIPine BESYLATE 10 MG TABLET (FP) PO SCH (09:29)
[2020-08-11] MEDS: PRENATAL VITAMINS W/ FOLIC ACID TABLET (FP) PO SCH (09:29)
[2020-08-11] MEDS: valACYclovir HCL 500 MG TABLET (FP) PO SCH ×2 (09:29→21:22)
[2020-08-11] MEDS: NICOTINE 21 MG/24 HOURS TOPICAL PATCH TD SCH (09:30)
[2020-08-11] MEDS: ELVITEG/COB/EMTRI/TENOF (GENVOYA) TABLET (NF) PO SCH (09:30)
[2020-08-11] MEDS: HYDROCORTISONE 1% TOPICAL CREAM 30 GM TUBE TP SCH ×2 (09:30→21:19)
[2020-08-11] MEDS: METHYL SALICYLATE/MENTHOL OINT 30 GM TUBE TP SCH ×2 (09:30→21:19)
[2020-08-11] MEDS: FLUTICASONE/SALMETEROL 100 MCG/50 MCG DISKUS IH SCH ×2 (09:30→21:19)
[2020-08-11] MEDS: TOLNAFTATE 1% CREAM 15 GM TUBE TP SCH ×2 (09:31→21:28)
[2020-08-11] MEDS: THIAMINE HCL 100 MG TABLET (FP) PO SCH (21:19)
[2020-08-11] MEDS: METHOCARBAMOL 500 MG TABLET PO PRN (21:19)
[2020-08-11] MEDS: MELATONIN 5 MG TABLETS PO SCH (21:19)
[2020-08-11] MEDS: QUEtiapine FUMARATE 100 MG TABLET (FP) PO SCH (21:19)
[2020-08-11] MEDS: TAMSULOSIN HCL 0.4 MG CAP PO SCH (21:20)
[2020-08-12 06:57] VITALS: TEMP 97.7
[2020-08-12] MEDS: ELVITEG/COB/EMTRI/TENOF (GENVOYA) TABLET (NF) PO SCH (07:31)
[2020-08-12] MEDS: PRENATAL VITAMINS W/ FOLIC ACID TABLET (FP) PO SCH (10:06)
[2020-08-12] MEDS: valACYclovir HCL 500 MG TABLET (FP) PO SCH ×2 (10:06→21:37)
[2020-08-12] MEDS: amLODIPine BESYLATE 10 MG TABLET (FP) PO SCH (10:07)
[2020-08-12] MEDS: ASPIRIN COATED 81 MG TABLET.EC PO SCH (10:07)
[2020-08-12] MEDS: FLUTICASONE/SALMETEROL 100 MCG/50 MCG DISKUS IH SCH ×2 (10:08→21:38)
[2020-08-12] MEDS: NICOTINE 21 MG/24 HOURS TOPICAL PATCH TD SCH (10:08)
[2020-08-12] MEDS: METHYL SALICYLATE/MENTHOL OINT 30 GM TUBE TP SCH ×2 (10:08→21:38)
[2020-08-12] MEDS: TOLNAFTATE 1% CREAM 15 GM TUBE TP SCH ×2 (10:08→21:39)
[2020-08-12] MEDS: HYDROCORTISONE 1% TOPICAL CREAM 30 GM TUBE TP SCH ×2 (10:08→21:38)
[2020-08-12] MEDS: THIAMINE HCL 100 MG TABLET (FP) PO SCH (21:37)
[2020-08-12] MEDS: TAMSULOSIN HCL 0.4 MG CAP PO SCH (21:37)
[2020-08-12] MEDS: QUEtiapine FUMARATE 100 MG TABLET (FP) PO SCH (21:37)
[2020-08-12] MEDS: METHOCARBAMOL 500 MG TABLET PO PRN (21:37)
[2020-08-12] MEDS: MELATONIN 5 MG TABLETS PO SCH (21:38)
[2020-08-13] MEDS: ELVITEG/COB/EMTRI/TENOF (GENVOYA) TABLET (NF) PO SCH (07:02)
[2020-08-13] MEDS: ASPIRIN COATED 81 MG TABLET.EC PO SCH (09:18)
[2020-08-13] MEDS: valACYclovir HCL 500 MG TABLET (FP) PO SCH (09:18)
[2020-08-13] MEDS: PRENATAL VITAMINS W/ FOLIC ACID TABLET (FP) PO SCH (09:18)
[2020-08-13] MEDS: NICOTINE 21 MG/24 HOURS TOPICAL PATCH TD SCH (09:18)
[2020-08-13] MEDS: amLODIPine BESYLATE 10 MG TABLET (FP) PO SCH (09:18)
[2020-08-13] MEDS: METHYL SALICYLATE/MENTHOL OINT 30 GM TUBE TP SCH (09:19)
[2020-08-13] MEDS: FLUTICASONE/SALMETEROL 100 MCG/50 MCG DISKUS IH SCH (09:19)
[2020-08-13] MEDS: TOLNAFTATE 1% CREAM 15 GM TUBE TP SCH (09:19)
[2020-08-13] MEDS: HYDROCORTISONE 1% TOPICAL CREAM 30 GM TUBE TP SCH (09:19)
[2020-08-13 10:28] VITALS: BP 131/86; PULSE 101
== END 2020-08-13 09:55 | disposition home or self-care (01) | DRG 772 ==
LOC: YASAS 12:18 → Y5N 12:19
PROVIDERS: ADMIT Allergy & Immunology; ATTEND Allergy & Immunology
PROC: HZ42ZZZ Group Counseling for Substance Abuse Treatment, Cognitive-Behavioral (ICD-10-PCS; principal; 2020-08-05)
DX: F10.20 Alcohol dependence, uncomplicated (principal); F12.20 Cannabis dependence, uncomplicated; F17.210 Nicotine dependence, cigarettes, uncomplicated; F25.9 Schizoaffective disorder, unspecified; F31.9 Bipolar disorder, unspecified; Z21 Asymptomatic human immunodeficiency virus [HIV] infection status; A60.09 Herpesviral infection of other urogenital tract; I10 Essential (primary) hypertension; J45.909 Unspecified asthma, uncomplicated; B35.3 Tinea pedis; M62.838 Other muscle spasm; Z88.8 Allergy status to other drugs, medicaments and biological substances; Z91.013 Allergy to seafood
CPT/HCPCS: 82962

== ENCOUNTER 2021-05-12 09:11 | Inpatient (IN) | payer OTHER ==
[2021-05-12 09:36] VITALS: BMI 23.1
[2021-05-12] MEDS ORDERED: ONDANSETRON *ODT* 4 MG TABLET SL PRN (11:44)
[2021-05-12] MEDS ORDERED: IBUPROFEN 400 MG TABLET (FP) PO PRN (11:44)
[2021-05-12] MEDS ORDERED: MAGNESIUM CITRATE 300 ML BOTTLE PO PRN (11:44)
[2021-05-12] MEDS ORDERED: METHOCARBAMOL 500 MG TABLET PO PRN (11:44)
[2021-05-12] MEDS ORDERED: MAGNESIUM HYDROX 2400MG/30ML ORAL SUSPENSION 30 ML CUP PO PRN (11:44)
[2021-05-12] MEDS ORDERED: MENTHOL/PHENOL 1 EACH UD MM PRN (11:44)
[2021-05-12] MEDS ORDERED: hydrOXYzine PAMOATE 25 MG CAPSULE (FP) PO PRN (11:44)
[2021-05-12] MEDS ORDERED: MAG HYDROX/AL HYDROX/SIMETH 30 ML UNIT-DOSE CUP PO PRN (11:44)
[2021-05-12] MEDS ORDERED: ACETAMINOPHEN 325 MG TABLET (FP) PO PRN ×2 (11:44)
[2021-05-12] MEDS ORDERED: amLODIPine BESYLATE 10 MG TABLET (FP) PO ONE (13:15)
[2021-05-12 15:31] LABS: CALCIUM 8.2 mg/dL (8.5-10.1)
[2021-05-12 15:32] LABS: ALBUMIN 3.4 g/dl (3.4-5.0); BLOOD UREA NITROGEN 27.1 mg/dL (7-18)
[2021-05-12 15:34] LABS: CREATININE 1.1 mg/dL (0.55-1.3)
[2021-05-12 15:36] LABS: BILIRUBIN,TOTAL 0.9 mg/dL (0.2-1); TOT PROT 7.4 g/dl (6.4-8.2)
[2021-05-12 15:37] LABS: HEMATOCRIT 38.6 % (35.4-49); HEMOGLOBIN 13.4 GM/dL (11.7-16.9); MCH 32.7 pg (25.7-33.7); MCHC 34.8 g/dl (32.0-35.9); MEAN CELL VOLUME 94.1 fl (80-96); MEAN PLT VOLUME 9.3 fl (7.5-11.1); PLATELET COUNT 227 10^3/uL (134-434); RDW 13.1 % (11.9-15.9); WHITE BLOOD COUNT 6.3 K/mm3 (4.0-10.0)
[2021-05-12] MEDS: TAMSULOSIN HCL 0.4 MG CAP PO SCH (21:08)
[2021-05-12] MEDS: MELATONIN 5 MG TABLETS PO SCH (23:21)
[2021-05-12] MEDS: THIAMINE HCL 100 MG TABLET (FP) PO SCH (23:21)
[2021-05-12] MEDS: valACYclovir HCL 500 MG TABLET (FP) PO SCH (23:21)
[2021-05-13] MEDS ORDERED: ALBUTEROL SO4 HFA INHALER IH PRN (07:44)
[2021-05-13] MEDS ORDERED: diazePAM 5 MG TABLET PO PRN (10:00)
[2021-05-13] MEDS: PRENATAL VITAMINS W/ FOLIC ACID TABLET (FP) PO SCH (10:27)
[2021-05-13] MEDS: TAMSULOSIN HCL 0.4 MG CAP PO SCH ×2 (10:28→22:04)
[2021-05-13] MEDS: valACYclovir HCL 500 MG TABLET (FP) PO SCH ×2 (10:28→22:03)
[2021-05-13] MEDS: ASPIRIN COATED 81 MG TABLET.EC PO SCH (10:28)
[2021-05-13] MEDS: amLODIPine BESYLATE 10 MG TABLET (FP) PO SCH (10:28)
[2021-05-13] MEDS: ELVITEG/COB/EMTRI/TENOF (GENVOYA) TABLET (NF) PO SCH (10:28)
[2021-05-13] MEDS: diazePAM 5 MG TABLET PO SCH ×3 (11:26→22:03)
[2021-05-13] MEDS: BISMUTH SUBSALICYLATE 524 MG/30 ML PO PRN (18:13)
[2021-05-13] MEDS: THIAMINE HCL 100 MG TABLET (FP) PO SCH (22:03)
[2021-05-13] MEDS: MELATONIN 5 MG TABLETS PO SCH (22:04)
[2021-05-14] MEDS: diazePAM 5 MG TABLET PO SCH ×5 (07:35→22:58)
[2021-05-14] MEDS: valACYclovir HCL 500 MG TABLET (FP) PO SCH ×2 (11:37→22:58)
[2021-05-14] MEDS: amLODIPine BESYLATE 10 MG TABLET (FP) PO SCH (11:38)
[2021-05-14] MEDS: ASPIRIN COATED 81 MG TABLET.EC PO SCH (11:38)
[2021-05-14] MEDS: TAMSULOSIN HCL 0.4 MG CAP PO SCH ×2 (11:38→22:58)
[2021-05-14] MEDS: PRENATAL VITAMINS W/ FOLIC ACID TABLET (FP) PO SCH (11:39)
[2021-05-14] MEDS: ELVITEG/COB/EMTRI/TENOF (GENVOYA) TABLET (NF) PO SCH (11:39)
[2021-05-14] MEDS: BISMUTH SUBSALICYLATE 524 MG/30 ML PO PRN ×2 (18:13→23:05)
[2021-05-14] MEDS: MELATONIN 5 MG TABLETS PO SCH (22:58)
[2021-05-14] MEDS: THIAMINE HCL 100 MG TABLET (FP) PO SCH (22:58)
[2021-05-15] MEDS ORDERED: diazePAM 5 MG TABLET PO SCH (06:00)
[2021-05-15 09:09] VITALS: BP 143/91; PULSE 81; TEMP 96.9
[2021-05-15] MEDS: valACYclovir HCL 500 MG TABLET (FP) PO SCH (10:03)
[2021-05-15] MEDS: PRENATAL VITAMINS W/ FOLIC ACID TABLET (FP) PO SCH (10:03)
[2021-05-15] MEDS: TAMSULOSIN HCL 0.4 MG CAP PO SCH (10:03)
[2021-05-15] MEDS: amLODIPine BESYLATE 10 MG TABLET (FP) PO SCH (10:03)
[2021-05-15] MEDS: ELVITEG/COB/EMTRI/TENOF (GENVOYA) TABLET (NF) PO SCH (10:04)
[2021-05-15] MEDS: ASPIRIN COATED 81 MG TABLET.EC PO SCH (10:04)
[2021-05-16] MEDS ORDERED: diazePAM 5 MG TABLET PO SCH (06:00)
[2021-05-17] MEDS ORDERED: diazePAM 5 MG TABLET PO ONE (06:00)
== END 2021-05-15 11:57 | disposition left against medical advice (07) | DRG 770 ==
LOC: YASAS 09:11 → Y3N 11:59
PROVIDERS: ADMIT Allergy & Immunology; ATTEND Allergy & Immunology
PROC: HZ2ZZZZ Detoxification Services for Substance Abuse Treatment (ICD-10-PCS; principal; 2021-05-12)
DX: F10.230 Alcohol dependence with withdrawal, uncomplicated (principal); F14.20 Cocaine dependence, uncomplicated; F12.20 Cannabis dependence, uncomplicated; F17.210 Nicotine dependence, cigarettes, uncomplicated; F25.9 Schizoaffective disorder, unspecified; F19.282 Other psychoactive substance dependence with psychoactive substance-induced sleep disorder; F19.24 Other psychoactive substance dependence with psychoactive substance-induced mood disorder; Z21 Asymptomatic human immunodeficiency virus [HIV] infection status; I10 Essential (primary) hypertension; J45.909 Unspecified asthma, uncomplicated; K74.60 Unspecified cirrhosis of liver; E78.5 Hyperlipidemia, unspecified; L30.9 Dermatitis, unspecified; L25.9 Unspecified contact dermatitis, unspecified cause; B18.2 Chronic viral hepatitis C; N40.1 Benign prostatic hyperplasia with lower urinary tract symptoms; R33.8 Other retention of urine; Z96.0 Presence of urogenital implants
CPT/HCPCS: 36415; 80053; 84520; 85027; 86780; C9803; U0003; U0005

== ENCOUNTER 2021-05-13 02:43 | Emergency (ER) | payer OTHER ==
[2021-05-13 03:11] VITALS: BP 123/74; PULSE 68; TEMP 98.8; BMI 23.5
== END 2021-05-13 03:27 | disposition home or self-care (01) ==
LOC: JER 02:43
DX: R33.9 Retention of urine, unspecified (principal)
CPT/HCPCS: 99281-25

== ENCOUNTER 2021-07-04 18:21 | Inpatient (IN) | payer OTHER ==
[2021-07-04 18:37] VITALS: BMI 23.5
[2021-07-04] MEDS ORDERED: ACETAMINOPHEN 325 MG TABLET (FP) PO PRN (21:26)
[2021-07-04] MEDS ORDERED: LOPERAMIDE HCL 2 MG CAPSULE PO PRN (21:26)
[2021-07-04] MEDS ORDERED: P-EPHED 60MG/TRIPROLIDI 2.5MG TABLET PO PRN (21:26)
[2021-07-04] MEDS ORDERED: MAGNESIUM CITRATE 300 ML BOTTLE PO PRN (21:26)
[2021-07-04] MEDS ORDERED: guaiFENesin 200 MG/10 ML 10 ML UNIT-DOSE CUPS PO PRN (21:26)
[2021-07-04] MEDS ORDERED: NICOTINE 10 MG CARTRIDGE (INHALER) IH PRN (21:26)
[2021-07-04] MEDS ORDERED: MAG HYDROX/AL HYDROX/SIMETH 30 ML UNIT-DOSE CUP PO PRN (21:26)
[2021-07-04] MEDS ORDERED: MAGNESIUM HYDROX 2400MG/30ML ORAL SUSPENSION 30 ML CUP PO PRN (21:26)
[2021-07-04] MEDS ORDERED: IBUPROFEN 400 MG TABLET (FP) PO PRN (21:26)
[2021-07-05] MEDS ORDERED: TUBERCULIN PPD 5 TU/0.1ML VIAL ID ONE ×2 (01:04→03:36)
[2021-07-05] MEDS: MELATONIN 5 MG TABLETS PO SCH ×2 (02:06→21:56)
[2021-07-05] MEDS: THIAMINE HCL 100 MG TABLET (FP) PO SCH ×2 (02:26→21:56)
[2021-07-05] MEDS: PRENATAL VITAMINS W/ FOLIC ACID TABLET (FP) PO SCH (10:04)
[2021-07-05] MEDS ORDERED: hydrOXYzine PAMOATE 50 MG CAPSULE (FP) PO PRN (11:35)
[2021-07-05 14:32] LABS: EPI CELLS 3 /uL (0-25.1); HYALINE CASTS 0 /uL (0-3.1); URINE APPEARANCE CLEAR; URINE BACTERIA 6 /uL (0-1359); URINE BILIRUBIN NEGATIVE (NEGATIVE); URINE COLOR YELLOW; URINE GLUCOSE (UA) NEGATIVE (NEGATIVE); URINE KETONE NEGATIVE (NEGATIVE); URINE LEUK ESTERASE TRACE (NEGATIVE); URINE NITRITE NEGATIVE (NEGATIVE); URINE PROTEIN NEGATIVE (NEGATIVE); URINE RBC 2 /uL (0-23.9); URINE WBC 16 /uL (0-25.8)
[2021-07-05] MEDS: QUEtiapine FUMARATE 100 MG TABLET (FP) PO SCH (22:15)
[2021-07-06] MEDS ORDERED: ALBUTEROL SO4 HFA INHALER IH PRN (09:48)
[2021-07-06] MEDS: ASPIRIN COATED 81 MG TABLET.EC PO SCH (10:23)
[2021-07-06] MEDS: amLODIPine BESYLATE 10 MG TABLET (FP) PO SCH (10:23)
[2021-07-06] MEDS: TAMSULOSIN HCL 0.4 MG CAP PO SCH ×2 (10:23→21:12)
[2021-07-06] MEDS: PRENATAL VITAMINS W/ FOLIC ACID TABLET (FP) PO SCH (10:24)
[2021-07-06] MEDS: valACYclovir HCL 500 MG TABLET (FP) PO SCH ×2 (10:25→21:12)
[2021-07-06] MEDS ORDERED: FLU VACC QS2021-22(6MOS UP)/PF 60 MCG/0.5 ML SYRINGE IM ONE (12:00)
[2021-07-06] MEDS: ELVITEG/COB/EMTRI/TENOF (GENVOYA) TABLET (NF) PO SCH (12:28)
[2021-07-06] MEDS ORDERED: PT OWN MED DRAWER 7, Y5N ONE (19:17)
[2021-07-06] MEDS: QUEtiapine FUMARATE 100 MG TABLET (FP) PO SCH (21:12)
[2021-07-06] MEDS: MELATONIN 5 MG TABLETS PO SCH (21:13)
[2021-07-06] MEDS: THIAMINE HCL 100 MG TABLET (FP) PO SCH (21:13)
[2021-07-07 07:38] VITALS: TEMP 97.3
[2021-07-07] MEDS: TAMSULOSIN HCL 0.4 MG CAP PO SCH ×2 (09:44→21:41)
[2021-07-07] MEDS: amLODIPine BESYLATE 10 MG TABLET (FP) PO SCH (09:44)
[2021-07-07] MEDS: ASPIRIN COATED 81 MG TABLET.EC PO SCH (09:44)
[2021-07-07] MEDS: ELVITEG/COB/EMTRI/TENOF (GENVOYA) TABLET (NF) PO SCH (09:45)
[2021-07-07] MEDS: valACYclovir HCL 500 MG TABLET (FP) PO SCH ×2 (09:45→21:41)
[2021-07-07] MEDS: PRENATAL VITAMINS W/ FOLIC ACID TABLET (FP) PO SCH (09:45)
[2021-07-07] MEDS ORDERED: PT OWN MED DRAWER 7, Y5N ONE (20:45)
[2021-07-07] MEDS: QUEtiapine FUMARATE 100 MG TABLET (FP) PO SCH (21:41)
[2021-07-07] MEDS: MELATONIN 5 MG TABLETS PO SCH (21:41)
[2021-07-07] MEDS: THIAMINE HCL 100 MG TABLET (FP) PO SCH (21:41)
[2021-07-08 09:10] VITALS: BP 108/69; PULSE 90
[2021-07-08] MEDS: TAMSULOSIN HCL 0.4 MG CAP PO SCH (09:26)
[2021-07-08] MEDS: amLODIPine BESYLATE 10 MG TABLET (FP) PO SCH (09:26)
[2021-07-08] MEDS: valACYclovir HCL 500 MG TABLET (FP) PO SCH (09:26)
[2021-07-08] MEDS: ELVITEG/COB/EMTRI/TENOF (GENVOYA) TABLET (NF) PO SCH (09:26)
[2021-07-08] MEDS: ASPIRIN COATED 81 MG TABLET.EC PO SCH (09:26)
[2021-07-08] MEDS: PRENATAL VITAMINS W/ FOLIC ACID TABLET (FP) PO SCH (09:26)
[2021-07-08] MEDS ORDERED: PT OWN MED DRAWER 7, Y5N ONE (11:12)
[2021-07-08 12:14] LABS: BASO % 0.7 % (0-2.0); EOS % 2.9 % (0-4.5); HEMATOCRIT 39.1 % (35.4-49); HEMOGLOBIN 13.4 GM/dL (11.7-16.9); LYMPH % 29.8 % (8-40); MCH 32.3 pg (25.7-33.7); MCHC 34.2 g/dl (32.0-35.9); MEAN CELL VOLUME 94.4 fl (80-96); MEAN PLT VOLUME 8.4 fl (7.5-11.1); MONO % 11.8 % (3.8-10.2); NEUT % 54.8 % (42.8-82.8); PLATELET COUNT 274 10^3/uL (134-434); RBC 4.15 M/mm3 (4.00-5.60); RDW 14.8 % (11.9-15.9); WHITE BLOOD COUNT 5.4 K/mm3 (4.0-10.0)
[2021-07-08 12:28] LABS: ALBUMIN 3.3 g/dl (3.4-5.0)
[2021-07-08 12:29] LABS: CALCIUM 8.5 mg/dL (8.5-10.1)
[2021-07-08 12:30] LABS: BLOOD UREA NITROGEN 18.1 mg/dL (7-18)
[2021-07-08 12:31] LABS: CREATININE 1.1 mg/dL (0.55-1.3)
[2021-07-08 12:33] LABS: BILIRUBIN,TOTAL 0.8 mg/dL (0.2-1); TOT PROT 7.8 g/dl (6.4-8.2)
== END 2021-07-08 11:12 | disposition left against medical advice (07) | DRG 770 ==
LOC: YASAS 18:21 → Y3E 07-05 00:46
PROVIDERS: ADMIT Allergy & Immunology; ATTEND Allergy & Immunology
PROC: HZ42ZZZ Group Counseling for Substance Abuse Treatment, Cognitive-Behavioral (ICD-10-PCS; principal; 2021-07-05)
DX: F10.20 Alcohol dependence, uncomplicated (principal); F14.20 Cocaine dependence, uncomplicated; F12.20 Cannabis dependence, uncomplicated; F17.210 Nicotine dependence, cigarettes, uncomplicated; F19.282 Other psychoactive substance dependence with psychoactive substance-induced sleep disorder; F19.24 Other psychoactive substance dependence with psychoactive substance-induced mood disorder; F25.9 Schizoaffective disorder, unspecified; F39 Unspecified mood [affective] disorder; F41.9 Anxiety disorder, unspecified; F31.9 Bipolar disorder, unspecified; Z21 Asymptomatic human immunodeficiency virus [HIV] infection status; A53.9 Syphilis, unspecified; B02.9 Zoster without complications; B18.2 Chronic viral hepatitis C; I10 Essential (primary) hypertension; J45.909 Unspecified asthma, uncomplicated; K74.60 Unspecified cirrhosis of liver; N40.0 Benign prostatic hyperplasia without lower urinary tract symptoms; Z86.19 Personal history of other infectious and parasitic diseases; Z87.438 Personal history of other diseases of male genital organs; Z91.51 Personal history of suicidal behavior; Z91.19 Patient's noncompliance with other medical treatment and regimen
CPT/HCPCS: 36415; 80053; 81003; 85025; 86780; 90686; C9803; G0008; U0003; U0005

== ENCOUNTER 2021-09-02 16:44 | Inpatient (IN) | payer OTHER ==
[2021-09-02] MEDS ORDERED: ACETAMINOPHEN 325 MG TABLET (FP) PO PRN ×2 (21:17)
[2021-09-02] MEDS ORDERED: NICOTINE POLACRILEX 2 MG GUM BUC PRN (21:17)
[2021-09-02] MEDS ORDERED: MAG HYDROX/AL HYDROX/SIMETH 30 ML UNIT-DOSE CUP PO PRN (21:17)
[2021-09-02] MEDS ORDERED: P-EPHED 60MG/TRIPROLIDI 2.5MG TABLET PO PRN (21:17)
[2021-09-02] MEDS ORDERED: MAGNESIUM HYDROX 2400MG/30ML ORAL SUSPENSION 30 ML CUP PO PRN (21:17)
[2021-09-02] MEDS ORDERED: METHOCARBAMOL 500 MG TABLET PO PRN (21:17)
[2021-09-02] MEDS ORDERED: IBUPROFEN 400 MG TABLET (FP) PO PRN (21:17)
[2021-09-02] MEDS ORDERED: MENTHOL/PHENOL 1 EACH UD MM PRN (21:17)
[2021-09-02] MEDS ORDERED: MAGNESIUM CITRATE 300 ML BOTTLE PO PRN (21:17)
[2021-09-02] MEDS ORDERED: BISMUTH SUBSALICYLATE 524 MG/30 ML PO PRN (21:17)
[2021-09-02] MEDS ORDERED: ONDANSETRON *ODT* 4 MG TABLET SL PRN (21:17)
[2021-09-02] MEDS ORDERED: hydrOXYzine PAMOATE 25 MG CAPSULE (FP) PO PRN (21:17)
[2021-09-02] MEDS ORDERED: ALBUTEROL SO4 HFA INHALER IH PRN (21:20)
[2021-09-02 21:37] VITALS: BMI 23.5
[2021-09-02] MEDS ORDERED: MELATONIN 5 MG TABLETS PO SCH (22:00)
[2021-09-02] MEDS ORDERED: THIAMINE HCL 100 MG TABLET (FP) PO SCH (22:00)
[2021-09-02] MEDS: ASPIRIN COATED 81 MG TABLET.EC PO SCH (23:35)
[2021-09-02] MEDS: TAMSULOSIN HCL 0.4 MG CAP PO SCH (23:36)
[2021-09-02] MEDS: amLODIPine BESYLATE 10 MG TABLET (FP) PO SCH (23:36)
[2021-09-02] MEDS: valACYclovir HCL 500 MG TABLET (FP) PO SCH (23:36)
[2021-09-03 07:13] VITALS: BP 141/81; PULSE 85; TEMP 97.3
[2021-09-03] MEDS ORDERED: ELVITEG/COB/EMTRI/TENOF (GENVOYA) TABLET (NF) PO SCH (10:00)
[2021-09-03] MEDS ORDERED: PRENATAL VITAMINS W/ FOLIC ACID TABLET (FP) PO SCH (10:00)
[2021-09-03] MEDS: TAMSULOSIN HCL 0.4 MG CAP PO SCH (11:02)
[2021-09-03] MEDS: ASPIRIN COATED 81 MG TABLET.EC PO SCH (11:02)
[2021-09-03] MEDS: valACYclovir HCL 500 MG TABLET (FP) PO SCH (11:02)
[2021-09-03] MEDS: amLODIPine BESYLATE 10 MG TABLET (FP) PO SCH (11:02)
[2021-09-03 13:11] LABS: HEMATOCRIT 39.4 % (35.4-49); HEMOGLOBIN 13.6 GM/dL (11.7-16.9); MCH 32.7 pg (25.7-33.7); MCHC 34.5 g/dl (32.0-35.9); MEAN CELL VOLUME 94.7 fl (80-96); MEAN PLT VOLUME 9.1 fl (7.5-11.1); PLATELET COUNT 204 10^3/uL (134-434); RBC 4.17 M/mm3 (4.00-5.60); RDW 13.4 % (11.9-15.9)
[2021-09-03 14:25] LABS: CALCIUM 8.3 mg/dL (8.5-10.1)
[2021-09-03 14:26] LABS: ALBUMIN 3.2 g/dl (3.4-5.0); BLOOD UREA NITROGEN 22.1 mg/dL (7-18)
[2021-09-03 14:29] LABS: CREATININE 1.1 mg/dL (0.55-1.3)
[2021-09-03 14:30] LABS: BILIRUBIN,TOTAL 1.1 mg/dL (0.2-1)
[2021-09-03 14:31] LABS: TOT PROT 7.4 g/dl (6.4-8.2)
== END 2021-09-03 14:00 | disposition home or self-care (01) | DRG 774 ==
LOC: YASAS 16:44 → Y6N 21:28
PROVIDERS: ADMIT Allergy & Immunology; ATTEND Allergy & Immunology
PROC: HZ2ZZZZ Detoxification Services for Substance Abuse Treatment (ICD-10-PCS; principal; 2021-09-02)
DX: F10.230 Alcohol dependence with withdrawal, uncomplicated (principal); F14.20 Cocaine dependence, uncomplicated; F17.210 Nicotine dependence, cigarettes, uncomplicated; F31.9 Bipolar disorder, unspecified; F19.24 Other psychoactive substance dependence with psychoactive substance-induced mood disorder; F19.282 Other psychoactive substance dependence with psychoactive substance-induced sleep disorder; J45.20 Mild intermittent asthma, uncomplicated; N40.0 Benign prostatic hyperplasia without lower urinary tract symptoms; K74.60 Unspecified cirrhosis of liver; Z21 Asymptomatic human immunodeficiency virus [HIV] infection status; E78.5 Hyperlipidemia, unspecified; B18.2 Chronic viral hepatitis C; Z86.19 Personal history of other infectious and parasitic diseases; Z56.0 Unemployment, unspecified
CPT/HCPCS: 36415; 80053; 85027; 86780; C9803; U0003; U0005

== ENCOUNTER 2022-09-06 14:07 | Inpatient (IN) | payer OTHER ==
[2022-09-06 16:46] VITALS: BMI 21.9
[2022-09-06] MEDS ORDERED: MAG HYDROX/AL HYDROX/SIMETH 30 ML UNIT-DOSE CUP PO PRN (17:03)
[2022-09-06] MEDS ORDERED: IBUPROFEN 600 MG TABLET (FP) PO PRN (17:03)
[2022-09-06] MEDS ORDERED: NICOTINE 10 MG CARTRIDGE (INHALER) IH PRN (17:03)
[2022-09-06] MEDS ORDERED: MAGNESIUM HYDROX 2400MG/30ML ORAL SUSPENSION 30 ML CUP PO PRN (17:03)
[2022-09-06] MEDS ORDERED: DICYCLOMINE HCL 10 MG CAPSULE PO PRN (17:03)
[2022-09-06] MEDS ORDERED: ACETAMINOPHEN 325 MG TABLET (FP) PO PRN ×2 (17:03)
[2022-09-06] MEDS ORDERED: POLYETHYLENE GLYCOL (HEALTHYLAX) 3350 17 GM PACKET PO PRN (17:03)
[2022-09-06] MEDS ORDERED: NICOTINE POLACRILEX 2 MG GUM BUC PRN (17:03)
[2022-09-06] MEDS ORDERED: NALOXONE HCL (KLOXXADO) 8 MG SPRAY NS PRN (17:03)
[2022-09-06] MEDS ORDERED: BISMUTH SUBSALICYLATE 524 MG/30 ML PO PRN (17:03)
[2022-09-06] MEDS ORDERED: LOPERAMIDE HCL 2 MG CAPSULE PO PRN (17:03)
[2022-09-06] MEDS ORDERED: METHOCARBAMOL 500 MG TABLET PO PRN (17:03)
[2022-09-06] MEDS ORDERED: BENZOCAINE/MENTHOL (CHLORASEPTIC ) LOZENGE MM PRN (17:03)
[2022-09-06] MEDS ORDERED: IBUPROFEN 400 MG TABLET (FP) PO PRN (17:03)
[2022-09-06] MEDS ORDERED: ALBUTEROL SO4 HFA INHALER IH PRN (17:07)
[2022-09-06] MEDS: diazePAM 5 MG TABLET PO SCH ×2 (18:05→22:17)
[2022-09-06] MEDS: PRENATAL VITAMINS W/ FOLIC ACID TABLET (FP) PO SCH (18:07)
[2022-09-06] MEDS: ASPIRIN COATED 81 MG TABLET.EC PO SCH (18:10)
[2022-09-06] MEDS: amLODIPine BESYLATE 10 MG TABLET (FP) PO SCH (18:11)
[2022-09-06] MEDS: ONDANSETRON *ODT* 4 MG TABLET SL PRN (18:52)
[2022-09-06] MEDS ORDERED: TAMSULOSIN HCL 0.4 MG CAP PO SCH (22:00)
[2022-09-06] MEDS: THIAMINE HCL 100 MG TABLET (FP) PO SCH (22:14)
[2022-09-06] MEDS: valACYclovir HCL 500 MG TABLET (FP) PO SCH (22:15)
[2022-09-06] MEDS: TAMSULOSIN HCL 0.4 MG CAP PO SCH (22:15)
[2022-09-06] MEDS: MELATONIN 5 MG TABLETS PO SCH (22:15)
[2022-09-06] MEDS: ELVITEG/COB/EMTRI/TENOF (GENVOYA) TABLET (NF) PO SCH (22:16)
[2022-09-07] MEDS: diazePAM 5 MG TABLET PO SCH ×4 (05:38→22:26)
[2022-09-07] MEDS: PRENATAL VITAMINS W/ FOLIC ACID TABLET (FP) PO SCH (10:27)
[2022-09-07] MEDS: ELVITEG/COB/EMTRI/TENOF (GENVOYA) TABLET (NF) PO SCH (10:27)
[2022-09-07] MEDS: valACYclovir HCL 500 MG TABLET (FP) PO SCH ×2 (10:27→22:24)
[2022-09-07] MEDS: amLODIPine BESYLATE 10 MG TABLET (FP) PO SCH (10:27)
[2022-09-07] MEDS: ASPIRIN COATED 81 MG TABLET.EC PO SCH (10:27)
[2022-09-07 11:05] LABS: HEMATOCRIT 36.5 % (35.4-49); HEMOGLOBIN 12.1 GM/dL (11.7-16.9); MCH 31.2 pg (25.7-33.7); MCHC 33.1 g/dl (32.0-35.9); MEAN CELL VOLUME 94.2 fl (80-96); MEAN PLT VOLUME 9.2 fl (7.5-11.1); PLATELET COUNT 233 10^3/uL (134-434); RBC 3.87 M/mm3 (4.00-5.60); RDW 14.6 % (11.9-15.9); WHITE BLOOD COUNT 5.2 K/mm3 (4.0-10.0)
[2022-09-07 12:03] LABS: ALBUMIN 2.8 g/dl (3.4-5.0)
[2022-09-07 12:05] LABS: CALCIUM 8.3 mg/dL (8.5-10.1)
[2022-09-07 12:07] LABS: BILIRUBIN,TOTAL 0.4 mg/dL (0.2-1); TOT PROT 6.3 g/dl (6.4-8.2)
[2022-09-07 12:09] LABS: BLOOD UREA NITROGEN 20.4 mg/dL (7-18)
[2022-09-07] MEDS: ONDANSETRON *ODT* 4 MG TABLET SL PRN (19:58)
[2022-09-07] MEDS ORDERED: TAMSULOSIN HCL 0.4 MG CAP PO SCH ×2 (21:06→22:00)
[2022-09-07] MEDS ORDERED: traZODone HCL 50 MG TABLET (FP) PO SCH (22:00)
[2022-09-07] MEDS ORDERED: QUEtiapine FUMARATE 100 MG TABLET (FP) PO SCH (22:00)
[2022-09-07] MEDS: THIAMINE HCL 100 MG TABLET (FP) PO SCH (22:24)
[2022-09-07] MEDS: TAMSULOSIN HCL 0.4 MG CAP PO SCH (22:25)
[2022-09-07] MEDS: MELATONIN 5 MG TABLETS PO SCH (23:19)
[2022-09-08] MEDS: diazePAM 5 MG TABLET PO SCH ×2 (05:59→13:23)
[2022-09-08 09:04] VITALS: RESP 18
[2022-09-08] MEDS: ASPIRIN COATED 81 MG TABLET.EC PO SCH (10:14)
[2022-09-08] MEDS: valACYclovir HCL 500 MG TABLET (FP) PO SCH (10:14)
[2022-09-08] MEDS: PRENATAL VITAMINS W/ FOLIC ACID TABLET (FP) PO SCH (10:14)
[2022-09-08] MEDS: ELVITEG/COB/EMTRI/TENOF (GENVOYA) TABLET (NF) PO SCH (10:14)
[2022-09-08] MEDS: amLODIPine BESYLATE 10 MG TABLET (FP) PO SCH (10:14)
[2022-09-08 12:47] VITALS: BP 151/86; PULSE 83; TEMP 96.8
[2022-09-09] MEDS ORDERED: diazePAM 5 MG TABLET PO SCH (06:00)
[2022-09-10] MEDS ORDERED: diazePAM 5 MG TABLET PO ONE (06:00)
== END 2022-09-08 15:32 | disposition left against medical advice (07) | DRG 770 ==
LOC: YASAS 14:07 → Y3N 17:30
PROVIDERS: ADMIT Allergy & Immunology; ATTEND Surgery
PROC: HZ2ZZZZ Detoxification Services for Substance Abuse Treatment (ICD-10-PCS; principal; 2022-09-06)
DX: F10.230 Alcohol dependence with withdrawal, uncomplicated (principal); F14.20 Cocaine dependence, uncomplicated; F12.20 Cannabis dependence, uncomplicated; F17.210 Nicotine dependence, cigarettes, uncomplicated; F19.24 Other psychoactive substance dependence with psychoactive substance-induced mood disorder; F19.282 Other psychoactive substance dependence with psychoactive substance-induced sleep disorder; F41.9 Anxiety disorder, unspecified; I10 Essential (primary) hypertension; Z21 Asymptomatic human immunodeficiency virus [HIV] infection status; K74.60 Unspecified cirrhosis of liver; J45.20 Mild intermittent asthma, uncomplicated; L30.9 Dermatitis, unspecified; N40.0 Benign prostatic hyperplasia without lower urinary tract symptoms; G47.00 Insomnia, unspecified; Z87.438 Personal history of other diseases of male genital organs; Z86.19 Personal history of other infectious and parasitic diseases; Z91.14 Patient's other noncompliance with medication regimen; Z56.0 Unemployment, unspecified
CPT/HCPCS: 36415; 80053; 85027; 86780; C9803-CS; Q0162; U0003; U0005

== ENCOUNTER 2022-10-23 14:59 | Inpatient (IN) | payer OTHER ==
[2022-10-23 15:40] VITALS: BMI 23.5
[2022-10-23] MEDS ORDERED: POLYETHYLENE GLYCOL (HEALTHYLAX) 3350 17 GM PACKET PO PRN (16:25)
[2022-10-23] MEDS ORDERED: IBUPROFEN 400 MG TABLET (FP) PO PRN (16:25)
[2022-10-23] MEDS ORDERED: NICOTINE 10 MG CARTRIDGE (INHALER) IH PRN (16:25)
[2022-10-23] MEDS ORDERED: LOPERAMIDE HCL 2 MG CAPSULE PO PRN (16:25)
[2022-10-23] MEDS ORDERED: MAGNESIUM HYDROX 2400MG/30ML ORAL SUSPENSION 30 ML CUP PO PRN (16:25)
[2022-10-23] MEDS ORDERED: ACETAMINOPHEN 325 MG TABLET (FP) PO PRN (16:25)
[2022-10-23] MEDS ORDERED: MAG HYDROX/AL HYDROX/SIMETH 30 ML UNIT-DOSE CUP PO PRN (16:25)
[2022-10-23] MEDS ORDERED: P-EPHED 60MG/TRIPROLIDI 2.5MG TABLET PO PRN (16:25)
[2022-10-23] MEDS ORDERED: guaiFENesin 200 MG/10 ML 10 ML UNIT-DOSE CUPS PO PRN (16:25)
[2022-10-23] MEDS ORDERED: BENZOCAINE/MENTHOL (CHLORASEPTIC ) LOZENGE MM PRN (16:25)
[2022-10-23] MEDS: THIAMINE HCL 100 MG TABLET (FP) PO SCH (21:32)
[2022-10-23] MEDS: MELATONIN 5 MG TABLETS PO SCH (21:32)
[2022-10-24] MEDS: NICOTINE 21 MG/24 HOURS TOPICAL PATCH TD SCH (10:20)
[2022-10-24] MEDS: PRENATAL VITAMINS W/ FOLIC ACID TABLET (FP) PO SCH (10:20)
[2022-10-24 10:48] LABS: URINE APPEARANCE CLEAR; URINE BILIRUBIN NEGATIVE (NEGATIVE); URINE COLOR YELLOW; URINE GLUCOSE (UA) NEGATIVE (NEGATIVE); URINE KETONE NEGATIVE (NEGATIVE); URINE LEUK ESTERASE NEGATIVE (NEGATIVE); URINE NITRITE NEGATIVE (NEGATIVE); URINE PROTEIN NEGATIVE (NEGATIVE); URINE UROBILINOGEN 0.2 mg/dL (0.2-1.0)
[2022-10-24] MEDS ORDERED: ALBUTEROL SO4 HFA INHALER IH PRN (11:11)
[2022-10-24] MEDS: ASPIRIN COATED 81 MG TABLET.EC PO SCH (11:41)
[2022-10-24] MEDS: amLODIPine BESYLATE 10 MG TABLET (FP) PO SCH (11:41)
[2022-10-24 11:56] LABS: HEMATOCRIT 36.4 % (35.4-49); HEMOGLOBIN 11.9 GM/dL (11.7-16.9); MCH 30.3 pg (25.7-33.7); MCHC 32.6 g/dl (32.0-35.9); MEAN CELL VOLUME 92.8 fl (80-96); MEAN PLT VOLUME 8.6 fl (7.5-11.1); PLATELET COUNT 308 10^3/uL (134-434); RBC 3.92 M/mm3 (4.00-5.60); RDW 14.7 % (11.9-15.9); WHITE BLOOD COUNT 8.5 K/mm3 (4.0-10.0)
[2022-10-24 12:12] LABS: CALCIUM 8.4 mg/dL (8.5-10.1)
[2022-10-24 12:13] LABS: ALBUMIN 3.1 g/dl (3.4-5.0); BLOOD UREA NITROGEN 28.7 mg/dL (7-18)
[2022-10-24] MEDS: valACYclovir HCL 500 MG TABLET (FP) PO SCH ×2 (12:14→21:12)
[2022-10-24] MEDS: TAMSULOSIN HCL 0.4 MG CAP PO SCH ×2 (12:14→18:12)
[2022-10-24 12:16] LABS: CREATININE 1.1 mg/dL (0.55-1.3)
[2022-10-24 12:17] LABS: TOT PROT 7.6 g/dl (6.4-8.2)
[2022-10-24 12:18] LABS: BILIRUBIN,TOTAL 0.2 mg/dL (0.2-1)
[2022-10-24 12:37] LABS: SYPHILIS W/ RPR CONF NON-REACTIVE (NONREACTIVE)
[2022-10-24] MEDS: ELVITEG/COB/EMTRI/TENOF (GENVOYA) TABLET (NF) PO SCH (14:27)
[2022-10-24] MEDS: hydrOXYzine PAMOATE 25 MG CAPSULE (FP) PO PRN (21:12)
[2022-10-24] MEDS: MELATONIN 5 MG TABLETS PO SCH (21:12)
[2022-10-24] MEDS: THIAMINE HCL 100 MG TABLET (FP) PO SCH (21:12)
[2022-10-24] MEDS: traZODone HCL 50 MG TABLET (FP) PO SCH (21:13)
[2022-10-24] MEDS: QUEtiapine FUMARATE 100 MG TABLET (FP) PO SCH (21:14)
[2022-10-25] MEDS: ASPIRIN COATED 81 MG TABLET.EC PO SCH (09:10)
[2022-10-25] MEDS: TAMSULOSIN HCL 0.4 MG CAP PO SCH ×2 (09:10→18:59)
[2022-10-25] MEDS: NICOTINE 21 MG/24 HOURS TOPICAL PATCH TD SCH (09:11)
[2022-10-25] MEDS: amLODIPine BESYLATE 10 MG TABLET (FP) PO SCH (09:11)
[2022-10-25] MEDS: valACYclovir HCL 500 MG TABLET (FP) PO SCH (09:11)
[2022-10-25] MEDS: PRENATAL VITAMINS W/ FOLIC ACID TABLET (FP) PO SCH (09:11)
[2022-10-25] MEDS ORDERED: BENZOCAINE 20 % GEL TUBE MM PRN (09:19)
[2022-10-25] MEDS ORDERED: NICOTINE 21 MG/24 HOURS TOPICAL PATCH TD PRN (09:33)
[2022-10-25] MEDS ORDERED: valACYclovir HCL 500 MG TABLET (FP) PO ONE (10:00)
[2022-10-25] MEDS: ELVITEG/COB/EMTRI/TENOF (GENVOYA) TABLET (NF) PO SCH (11:00)
[2022-10-25] MEDS: HYDROCORTISONE 1% TOPICAL OINT 30 GM TUBE TP PRN (11:19)
[2022-10-25] MEDS: MELATONIN 5 MG TABLETS PO SCH (21:28)
[2022-10-25] MEDS: hydrOXYzine PAMOATE 25 MG CAPSULE (FP) PO PRN (21:28)
[2022-10-25] MEDS: traZODone HCL 50 MG TABLET (FP) PO SCH (21:28)
[2022-10-25] MEDS: QUEtiapine FUMARATE 100 MG TABLET (FP) PO SCH (21:28)
[2022-10-25] MEDS: THIAMINE HCL 100 MG TABLET (FP) PO SCH (21:28)
[2022-10-26] MEDS: amLODIPine BESYLATE 10 MG TABLET (FP) PO SCH (09:53)
[2022-10-26] MEDS: PRENATAL VITAMINS W/ FOLIC ACID TABLET (FP) PO SCH (09:53)
[2022-10-26] MEDS: ASPIRIN COATED 81 MG TABLET.EC PO SCH (09:53)
[2022-10-26] MEDS: ELVITEG/COB/EMTRI/TENOF (GENVOYA) TABLET (NF) PO SCH (09:54)
[2022-10-26] MEDS: valACYclovir HCL 500 MG TABLET (FP) PO SCH (09:57)
[2022-10-26] MEDS: TAMSULOSIN HCL 0.4 MG CAP PO SCH ×2 (10:26→17:48)
[2022-10-26] MEDS: THIAMINE HCL 100 MG TABLET (FP) PO SCH (21:16)
[2022-10-26] MEDS: MELATONIN 5 MG TABLETS PO SCH (21:16)
[2022-10-26] MEDS: traZODone HCL 50 MG TABLET (FP) PO SCH (21:17)
[2022-10-26] MEDS: QUEtiapine FUMARATE 100 MG TABLET (FP) PO SCH (21:17)
[2022-10-26] MEDS: HYDROCORTISONE 1% TOPICAL OINT 30 GM TUBE TP PRN (21:18)
[2022-10-27] MEDS: ELVITEG/COB/EMTRI/TENOF (GENVOYA) TABLET (NF) PO SCH (10:08)
[2022-10-27] MEDS: valACYclovir HCL 500 MG TABLET (FP) PO SCH (10:08)
[2022-10-27] MEDS: ASPIRIN COATED 81 MG TABLET.EC PO SCH (10:09)
[2022-10-27] MEDS: TAMSULOSIN HCL 0.4 MG CAP PO SCH ×2 (10:09→17:28)
[2022-10-27] MEDS: amLODIPine BESYLATE 10 MG TABLET (FP) PO SCH (10:09)
[2022-10-27] MEDS: PRENATAL VITAMINS W/ FOLIC ACID TABLET (FP) PO SCH (10:09)
[2022-10-27] MEDS: THIAMINE HCL 100 MG TABLET (FP) PO SCH (21:25)
[2022-10-27] MEDS: hydrOXYzine PAMOATE 25 MG CAPSULE (FP) PO PRN (21:25)
[2022-10-27] MEDS: MELATONIN 5 MG TABLETS PO SCH (21:25)
[2022-10-27] MEDS: traZODone HCL 50 MG TABLET (FP) PO SCH (21:25)
[2022-10-27] MEDS: QUEtiapine FUMARATE 100 MG TABLET (FP) PO SCH (21:26)
[2022-10-28] MEDS: ELVITEG/COB/EMTRI/TENOF (GENVOYA) TABLET (NF) PO SCH (09:30)
[2022-10-28] MEDS: ASPIRIN COATED 81 MG TABLET.EC PO SCH (09:30)
[2022-10-28] MEDS: TAMSULOSIN HCL 0.4 MG CAP PO SCH ×2 (09:30→18:45)
[2022-10-28] MEDS: amLODIPine BESYLATE 10 MG TABLET (FP) PO SCH (09:31)
[2022-10-28] MEDS: PRENATAL VITAMINS W/ FOLIC ACID TABLET (FP) PO SCH (09:31)
[2022-10-28] MEDS: valACYclovir HCL 500 MG TABLET (FP) PO SCH (09:31)
[2022-10-28] MEDS: MELATONIN 5 MG TABLETS PO SCH (21:07)
[2022-10-28] MEDS: THIAMINE HCL 100 MG TABLET (FP) PO SCH (21:07)
[2022-10-28] MEDS: traZODone HCL 50 MG TABLET (FP) PO SCH (21:08)
[2022-10-28] MEDS: QUEtiapine FUMARATE 100 MG TABLET (FP) PO SCH (21:08)
[2022-10-29] MEDS: valACYclovir HCL 500 MG TABLET (FP) PO SCH (09:45)
[2022-10-29] MEDS: ELVITEG/COB/EMTRI/TENOF (GENVOYA) TABLET (NF) PO SCH (09:45)
[2022-10-29] MEDS: ASPIRIN COATED 81 MG TABLET.EC PO SCH (09:46)
[2022-10-29] MEDS: TAMSULOSIN HCL 0.4 MG CAP PO SCH ×2 (09:46→18:03)
[2022-10-29] MEDS: amLODIPine BESYLATE 10 MG TABLET (FP) PO SCH (09:46)
[2022-10-29] MEDS: PRENATAL VITAMINS W/ FOLIC ACID TABLET (FP) PO SCH (09:46)
[2022-10-29] MEDS: traZODone HCL 50 MG TABLET (FP) PO SCH (21:42)
[2022-10-29] MEDS: hydrOXYzine PAMOATE 25 MG CAPSULE (FP) PO PRN (21:42)
[2022-10-29] MEDS: MELATONIN 5 MG TABLETS PO SCH (21:42)
[2022-10-29] MEDS: QUEtiapine FUMARATE 100 MG TABLET (FP) PO SCH (21:42)
[2022-10-29] MEDS: THIAMINE HCL 100 MG TABLET (FP) PO SCH (21:42)
[2022-10-30] MEDS: TAMSULOSIN HCL 0.4 MG CAP PO SCH ×2 (10:11→18:01)
[2022-10-30] MEDS: ASPIRIN COATED 81 MG TABLET.EC PO SCH (10:11)
[2022-10-30] MEDS: amLODIPine BESYLATE 10 MG TABLET (FP) PO SCH (10:11)
[2022-10-30] MEDS: ELVITEG/COB/EMTRI/TENOF (GENVOYA) TABLET (NF) PO SCH (10:11)
[2022-10-30] MEDS: valACYclovir HCL 500 MG TABLET (FP) PO SCH (10:12)
[2022-10-30] MEDS: PRENATAL VITAMINS W/ FOLIC ACID TABLET (FP) PO SCH (10:12)
[2022-10-30] MEDS: traZODone HCL 50 MG TABLET (FP) PO SCH (21:20)
[2022-10-30] MEDS: THIAMINE HCL 100 MG TABLET (FP) PO SCH (21:20)
[2022-10-30] MEDS: hydrOXYzine PAMOATE 25 MG CAPSULE (FP) PO PRN (21:20)
[2022-10-30] MEDS: QUEtiapine FUMARATE 100 MG TABLET (FP) PO SCH (21:21)
[2022-10-30] MEDS: MELATONIN 5 MG TABLETS PO SCH (21:21)
[2022-10-31] MEDS: amLODIPine BESYLATE 10 MG TABLET (FP) PO SCH (10:00)
[2022-10-31] MEDS: ASPIRIN COATED 81 MG TABLET.EC PO SCH (10:00)
[2022-10-31] MEDS: TAMSULOSIN HCL 0.4 MG CAP PO SCH ×2 (10:00→18:20)
[2022-10-31] MEDS: valACYclovir HCL 500 MG TABLET (FP) PO SCH (10:00)
[2022-10-31] MEDS: ELVITEG/COB/EMTRI/TENOF (GENVOYA) TABLET (NF) PO SCH (10:01)
[2022-10-31] MEDS: PRENATAL VITAMINS W/ FOLIC ACID TABLET (FP) PO SCH (10:01)
[2022-10-31] MEDS: QUEtiapine FUMARATE 100 MG TABLET (FP) PO SCH (21:21)
[2022-10-31] MEDS: MELATONIN 5 MG TABLETS PO SCH (21:21)
[2022-10-31] MEDS: traZODone HCL 50 MG TABLET (FP) PO SCH (21:21)
[2022-10-31] MEDS: THIAMINE HCL 100 MG TABLET (FP) PO SCH (21:21)
[2022-11-01] MEDS: TAMSULOSIN HCL 0.4 MG CAP PO SCH ×2 (08:45→18:30)
[2022-11-01] MEDS: amLODIPine BESYLATE 10 MG TABLET (FP) PO SCH (10:15)
[2022-11-01] MEDS: PRENATAL VITAMINS W/ FOLIC ACID TABLET (FP) PO SCH (10:15)
[2022-11-01] MEDS: ASPIRIN COATED 81 MG TABLET.EC PO SCH (10:15)
[2022-11-01] MEDS: ELVITEG/COB/EMTRI/TENOF (GENVOYA) TABLET (NF) PO SCH (10:16)
[2022-11-01] MEDS: valACYclovir HCL 500 MG TABLET (FP) PO SCH (11:05)
[2022-11-01] MEDS: MELATONIN 5 MG TABLETS PO SCH (21:40)
[2022-11-01] MEDS: THIAMINE HCL 100 MG TABLET (FP) PO SCH (21:40)
[2022-11-01] MEDS: QUEtiapine FUMARATE 100 MG TABLET (FP) PO SCH (21:41)
[2022-11-01] MEDS: traZODone HCL 50 MG TABLET (FP) PO SCH (21:41)
[2022-11-02] MEDS: TAMSULOSIN HCL 0.4 MG CAP PO SCH ×2 (09:35→17:38)
[2022-11-02] MEDS: valACYclovir HCL 500 MG TABLET (FP) PO SCH (10:10)
[2022-11-02] MEDS: amLODIPine BESYLATE 10 MG TABLET (FP) PO SCH (10:10)
[2022-11-02] MEDS: ASPIRIN COATED 81 MG TABLET.EC PO SCH (10:10)
[2022-11-02] MEDS: PRENATAL VITAMINS W/ FOLIC ACID TABLET (FP) PO SCH (10:11)
[2022-11-02] MEDS: ELVITEG/COB/EMTRI/TENOF (GENVOYA) TABLET (NF) PO SCH (10:11)
[2022-11-02] MEDS: traZODone HCL 50 MG TABLET (FP) PO SCH (21:53)
[2022-11-02] MEDS: MELATONIN 5 MG TABLETS PO SCH (21:53)
[2022-11-02] MEDS: hydrOXYzine PAMOATE 25 MG CAPSULE (FP) PO PRN (21:53)
[2022-11-02] MEDS: THIAMINE HCL 100 MG TABLET (FP) PO SCH (21:53)
[2022-11-02] MEDS: QUEtiapine FUMARATE 100 MG TABLET (FP) PO SCH (21:53)
[2022-11-03] MEDS: PRENATAL VITAMINS W/ FOLIC ACID TABLET (FP) PO SCH (09:53)
[2022-11-03] MEDS: ASPIRIN COATED 81 MG TABLET.EC PO SCH (09:53)
[2022-11-03] MEDS: ELVITEG/COB/EMTRI/TENOF (GENVOYA) TABLET (NF) PO SCH (09:53)
[2022-11-03] MEDS: amLODIPine BESYLATE 10 MG TABLET (FP) PO SCH (09:53)
[2022-11-03] MEDS: TAMSULOSIN HCL 0.4 MG CAP PO SCH ×2 (09:53→18:25)
[2022-11-03] MEDS: valACYclovir HCL 500 MG TABLET (FP) PO SCH (09:54)
[2022-11-03] MEDS: THIAMINE HCL 100 MG TABLET (FP) PO SCH (21:28)
[2022-11-03] MEDS: MELATONIN 5 MG TABLETS PO SCH (21:28)
[2022-11-03] MEDS: traZODone HCL 50 MG TABLET (FP) PO SCH (21:28)
[2022-11-03] MEDS: QUEtiapine FUMARATE 100 MG TABLET (FP) PO SCH (21:29)
[2022-11-04] MEDS: ELVITEG/COB/EMTRI/TENOF (GENVOYA) TABLET (NF) PO SCH (09:47)
[2022-11-04] MEDS: ASPIRIN COATED 81 MG TABLET.EC PO SCH (09:47)
[2022-11-04] MEDS: amLODIPine BESYLATE 10 MG TABLET (FP) PO SCH (09:47)
[2022-11-04] MEDS: PRENATAL VITAMINS W/ FOLIC ACID TABLET (FP) PO SCH (09:47)
[2022-11-04] MEDS: TAMSULOSIN HCL 0.4 MG CAP PO SCH ×2 (09:47→18:38)
[2022-11-04] MEDS: valACYclovir HCL 500 MG TABLET (FP) PO SCH (09:48)
[2022-11-04] MEDS: MELATONIN 5 MG TABLETS PO SCH (21:07)
[2022-11-04] MEDS: traZODone HCL 50 MG TABLET (FP) PO SCH (21:07)
[2022-11-04] MEDS: THIAMINE HCL 100 MG TABLET (FP) PO SCH (21:07)
[2022-11-04] MEDS: QUEtiapine FUMARATE 100 MG TABLET (FP) PO SCH (21:08)
[2022-11-05 07:58] VITALS: RESP 18; TEMP 97.8
[2022-11-05] MEDS: TAMSULOSIN HCL 0.4 MG CAP PO SCH (09:09)
[2022-11-05] MEDS: PRENATAL VITAMINS W/ FOLIC ACID TABLET (FP) PO SCH (09:09)
[2022-11-05] MEDS: amLODIPine BESYLATE 10 MG TABLET (FP) PO SCH (09:09)
[2022-11-05] MEDS: ASPIRIN COATED 81 MG TABLET.EC PO SCH (09:09)
[2022-11-05] MEDS: valACYclovir HCL 500 MG TABLET (FP) PO SCH (09:09)
[2022-11-05] MEDS: ELVITEG/COB/EMTRI/TENOF (GENVOYA) TABLET (NF) PO SCH (09:10)
[2022-11-05 10:02] VITALS: BP 107/69; PULSE 98
== END 2022-11-05 09:15 | disposition home or self-care (01) | DRG 772 ==
LOC: YASAS 14:59 → Y3E 19:02
PROVIDERS: ADMIT Allergy & Immunology; ATTEND Psychiatry & Neurology Pain Medicine
PROC: HZ42ZZZ Group Counseling for Substance Abuse Treatment, Cognitive-Behavioral (ICD-10-PCS; principal; 2022-10-23)
DX: F10.20 Alcohol dependence, uncomplicated (principal); F14.20 Cocaine dependence, uncomplicated; F12.20 Cannabis dependence, uncomplicated; F17.210 Nicotine dependence, cigarettes, uncomplicated; F25.9 Schizoaffective disorder, unspecified; F31.9 Bipolar disorder, unspecified; F19.282 Other psychoactive substance dependence with psychoactive substance-induced sleep disorder; F19.24 Other psychoactive substance dependence with psychoactive substance-induced mood disorder; F39 Unspecified mood [affective] disorder; Z21 Asymptomatic human immunodeficiency virus [HIV] infection status; E78.5 Hyperlipidemia, unspecified; J45.20 Mild intermittent asthma, uncomplicated; K74.60 Unspecified cirrhosis of liver; L30.9 Dermatitis, unspecified; L25.9 Unspecified contact dermatitis, unspecified cause; N40.0 Benign prostatic hyperplasia without lower urinary tract symptoms; Z88.8 Allergy status to other drugs, medicaments and biological substances
CPT/HCPCS: 36415; 80053; 81003; 82962; 85027; 86780; 86803; 87522; 87811; C9803-CS; U0003; U0005

== ENCOUNTER 2023-01-25 12:16 | Inpatient (IN) | payer OTHER ==
[2023-01-25 12:37] VITALS: BMI 21.2
[2023-01-25] MEDS ORDERED: BENZONATATE 200 MG CAPSULE PO PRN (14:54)
[2023-01-25] MEDS ORDERED: IBUPROFEN 400 MG TABLET (FP) PO PRN (14:54)
[2023-01-25] MEDS ORDERED: NALOXONE HCL (KLOXXADO) 8 MG SPRAY NS PRN (14:54)
[2023-01-25] MEDS ORDERED: NICOTINE 10 MG CARTRIDGE (INHALER) IH PRN (14:54)
[2023-01-25] MEDS ORDERED: COLLOIDAL OATMEAL 1 BAR EACH TP PRN (14:54)
[2023-01-25] MEDS ORDERED: LOPERAMIDE HCL 2 MG CAPSULE PO PRN (14:54)
[2023-01-25] MEDS ORDERED: POLYETHYLENE GLYCOL (HEALTHYLAX) 3350 17 GM PACKET PO PRN (14:54)
[2023-01-25] MEDS ORDERED: MAGNESIUM HYDROX 2400MG/30ML ORAL SUSPENSION 30 ML CUP PO PRN (14:54)
[2023-01-25] MEDS ORDERED: guaiFENesin 600 MG TABLET.ER (FP) PO PRN (14:54)
[2023-01-25] MEDS ORDERED: AMMONIUM LACTATE 12% LOTION 225 GM BOTTLE TP PRN (14:54)
[2023-01-25] MEDS ORDERED: BENZOCAINE/MENTHOL (CHLORASEPTIC ) LOZENGE MM PRN (14:54)
[2023-01-25] MEDS ORDERED: MAG HYDROX/AL HYDROX/SIMETH 30 ML UNIT-DOSE CUP PO PRN (14:54)
[2023-01-25] MEDS ORDERED: ACETAMINOPHEN 325 MG TABLET (FP) PO PRN (14:54)
[2023-01-25] MEDS ORDERED: hydrOXYzine PAMOATE 25 MG CAPSULE (FP) PO PRN (14:54)
[2023-01-25] MEDS ORDERED: NALOXONE HCL 0.4 MG/ML VIAL IM PRN (14:54)
[2023-01-25] MEDS ORDERED: ALBUTEROL SO4 HFA INHALER IH PRN (14:56)
[2023-01-25] MEDS: PRENATAL VITAMINS W/ FOLIC ACID TABLET (FP) PO SCH (18:58)
[2023-01-25] MEDS: NICOTINE 14 MG/24 HOURS TOPICAL PATCH TD SCH (18:58)
[2023-01-25] MEDS: traZODone HCL 50 MG TABLET (FP) PO SCH (23:07)
[2023-01-25] MEDS: THIAMINE HCL 100 MG TABLET (FP) PO SCH (23:07)
[2023-01-25] MEDS: TAMSULOSIN HCL 0.4 MG CAP PO SCH (23:07)
[2023-01-25] MEDS: valACYclovir HCL 500 MG TABLET (FP) PO SCH (23:07)
[2023-01-25] MEDS: MELATONIN 5 MG TABLETS PO SCH (23:07)
[2023-01-26] MEDS: ELVITEG/COB/EMTRI/TENOF (GENVOYA) TABLET PO SCH (07:03)
[2023-01-26] MEDS: amLODIPine BESYLATE 10 MG TABLET (FP) PO SCH (09:30)
[2023-01-26] MEDS: valACYclovir HCL 500 MG TABLET (FP) PO SCH ×2 (09:30→21:36)
[2023-01-26] MEDS: ASPIRIN COATED 81 MG TABLET.EC PO SCH (09:30)
[2023-01-26] MEDS: TAMSULOSIN HCL 0.4 MG CAP PO SCH ×2 (09:30→21:36)
[2023-01-26] MEDS: NICOTINE 14 MG/24 HOURS TOPICAL PATCH TD SCH (10:04)
[2023-01-26] MEDS: PRENATAL VITAMINS W/ FOLIC ACID TABLET (FP) PO SCH (10:04)
[2023-01-26 10:48] LABS: HEMATOCRIT 33.7 % (35.4-49); HEMOGLOBIN 11.8 GM/dL (11.7-16.9); MCH 30.8 pg (25.7-33.7); MCHC 35.1 g/dl (32.0-35.9); MEAN CELL VOLUME 87.7 fl (80-96); MEAN PLT VOLUME 8.1 fl (7.5-11.1); PLATELET COUNT 248 10^3/uL (134-434); RBC 3.84 M/mm3 (4.00-5.60); RDW 15.1 % (11.9-15.9)
[2023-01-26 10:51] LABS: POTASSIUM 3.3 mmol/L (3.5-5.1)
[2023-01-26 10:58] LABS: ALBUMIN 2.6 g/dl (3.4-5.0); BLOOD UREA NITROGEN 21.6 mg/dL (7-18); CALCIUM 8.1 mg/dL (8.5-10.1)
[2023-01-26 11:02] LABS: BILIRUBIN,TOTAL 0.4 mg/dL (0.2-1); TOT PROT 7.2 g/dl (6.4-8.2)
[2023-01-26 11:25] LABS: SYPHILIS W/ RPR CONF NON-REACTIVE (NONREACTIVE)
[2023-01-26] MEDS: POTASSIUM CHLORIDE TABS 20 MEQ TABLET.ER (FP) PO SCH ×2 (15:57→21:39)
[2023-01-26] MEDS: cloNIDine HCL 0.1 MG TABLET PO PRN (21:36)
[2023-01-26] MEDS: traZODone HCL 50 MG TABLET (FP) PO SCH (21:36)
[2023-01-26] MEDS: THIAMINE HCL 100 MG TABLET (FP) PO SCH (21:36)
[2023-01-26] MEDS: MELATONIN 5 MG TABLETS PO SCH (21:36)
[2023-01-27] MEDS: PRENATAL VITAMINS W/ FOLIC ACID TABLET (FP) PO SCH (09:53)
[2023-01-27] MEDS: ELVITEG/COB/EMTRI/TENOF (GENVOYA) TABLET PO SCH (09:53)
[2023-01-27] MEDS: NICOTINE 14 MG/24 HOURS TOPICAL PATCH TD SCH (09:53)
[2023-01-27] MEDS: TAMSULOSIN HCL 0.4 MG CAP PO SCH ×2 (09:54→21:32)
[2023-01-27] MEDS: valACYclovir HCL 500 MG TABLET (FP) PO SCH ×2 (09:54→21:32)
[2023-01-27] MEDS: ASPIRIN COATED 81 MG TABLET.EC PO SCH (09:54)
[2023-01-27] MEDS: amLODIPine BESYLATE 10 MG TABLET (FP) PO SCH (09:54)
[2023-01-27] MEDS: IBUPROFEN 600 MG TABLET (FP) PO PRN (09:54)
[2023-01-27] MEDS: BACITRACIN 0.9 GM PACKET TP SCH ×2 (10:22→21:32)
[2023-01-27 11:36] LABS: POTASSIUM 4.2 mmol/L (3.5-5.1)
[2023-01-27 11:41] LABS: BLOOD UREA NITROGEN 23.5 mg/dL (7-18); CALCIUM 8.3 mg/dL (8.5-10.1)
[2023-01-27 11:42] LABS: ALBUMIN 2.5 g/dl (3.4-5.0)
[2023-01-27 11:44] LABS: CREATININE 0.9 mg/dL (0.55-1.3)
[2023-01-27 11:47] LABS: BILIRUBIN,TOTAL 0.4 mg/dL (0.2-1)
[2023-01-27] MEDS: VITAMINS A AND D TOPICAL OINTMENT 60 GM TUBE TP SCH ×2 (12:15→19:09)
[2023-01-27] MEDS: MELATONIN 5 MG TABLETS PO SCH (21:32)
[2023-01-27] MEDS: traZODone HCL 50 MG TABLET (FP) PO SCH (21:32)
[2023-01-27] MEDS: THIAMINE HCL 100 MG TABLET (FP) PO SCH (21:32)
[2023-01-28] MEDS: VITAMINS A AND D TOPICAL OINTMENT 60 GM TUBE TP SCH ×4 (01:51→18:29)
[2023-01-28] MEDS: ELVITEG/COB/EMTRI/TENOF (GENVOYA) TABLET PO SCH (09:11)
[2023-01-28] MEDS: BACITRACIN 0.9 GM PACKET TP SCH ×2 (09:12→21:39)
[2023-01-28] MEDS: NICOTINE 14 MG/24 HOURS TOPICAL PATCH TD SCH (09:12)
[2023-01-28] MEDS: TAMSULOSIN HCL 0.4 MG CAP PO SCH ×2 (09:12→21:29)
[2023-01-28] MEDS: amLODIPine BESYLATE 10 MG TABLET (FP) PO SCH (09:12)
[2023-01-28] MEDS: valACYclovir HCL 500 MG TABLET (FP) PO SCH ×2 (09:12→21:30)
[2023-01-28] MEDS: PRENATAL VITAMINS W/ FOLIC ACID TABLET (FP) PO SCH (09:12)
[2023-01-28] MEDS: ASPIRIN COATED 81 MG TABLET.EC PO SCH (09:12)
[2023-01-28] MEDS: IBUPROFEN 600 MG TABLET (FP) PO PRN (09:25)
[2023-01-28] MEDS: SODIUM CHLORIDE NASAL SPRAY 44 ML BOTTLE NS PRN (18:41)
[2023-01-28] MEDS: MELATONIN 5 MG TABLETS PO SCH (21:29)
[2023-01-28] MEDS: THIAMINE HCL 100 MG TABLET (FP) PO SCH (21:30)
[2023-01-28] MEDS: cloNIDine HCL 0.1 MG TABLET PO PRN (21:30)
[2023-01-28] MEDS: traZODone HCL 50 MG TABLET (FP) PO SCH (21:30)
[2023-01-29] MEDS: VITAMINS A AND D TOPICAL OINTMENT 60 GM TUBE TP SCH ×4 (01:41→19:15)
[2023-01-29] MEDS: ELVITEG/COB/EMTRI/TENOF (GENVOYA) TABLET PO SCH (07:11)
[2023-01-29] MEDS: PRENATAL VITAMINS W/ FOLIC ACID TABLET (FP) PO SCH (10:26)
[2023-01-29] MEDS: valACYclovir HCL 500 MG TABLET (FP) PO SCH ×2 (10:26→21:26)
[2023-01-29] MEDS: BACITRACIN 0.9 GM PACKET TP SCH ×2 (10:26→21:26)
[2023-01-29] MEDS: amLODIPine BESYLATE 10 MG TABLET (FP) PO SCH (10:26)
[2023-01-29] MEDS: TAMSULOSIN HCL 0.4 MG CAP PO SCH ×2 (10:27→21:26)
[2023-01-29] MEDS: IBUPROFEN 600 MG TABLET (FP) PO PRN (10:28)
[2023-01-29] MEDS: ASPIRIN COATED 81 MG TABLET.EC PO SCH (10:32)
[2023-01-29] MEDS: NICOTINE 14 MG/24 HOURS TOPICAL PATCH TD SCH (10:32)
[2023-01-29 20:03] LABS: EPI CELLS 1 /uL (0-25.1); HYALINE CASTS 1 /uL (0-3.1); URINE APPEARANCE CLEAR; URINE BACTERIA 1530 /uL (0-1359); URINE BILIRUBIN NEGATIVE (NEGATIVE); URINE COLOR YELLOW; URINE GLUCOSE (UA) NEGATIVE (NEGATIVE); URINE KETONE NEGATIVE (NEGATIVE); URINE LEUK ESTERASE 2+ (NEGATIVE); URINE NITRITE NEGATIVE (NEGATIVE); URINE PROTEIN NEGATIVE (NEGATIVE); URINE RBC 14 /uL (0-23.9); URINE UROBILINOGEN 0.2 mg/dL (0.2-1.0); URINE WBC 909 /uL (0-25.8)
[2023-01-29] MEDS: cloNIDine HCL 0.1 MG TABLET PO PRN (21:25)
[2023-01-29] MEDS: MELATONIN 5 MG TABLETS PO SCH (21:26)
[2023-01-29] MEDS: THIAMINE HCL 100 MG TABLET (FP) PO SCH (21:26)
[2023-01-29] MEDS: traZODone HCL 50 MG TABLET (FP) PO SCH (21:26)
[2023-01-29] MEDS: SODIUM CHLORIDE NASAL SPRAY 44 ML BOTTLE NS PRN (21:27)
[2023-01-30] MEDS: VITAMINS A AND D TOPICAL OINTMENT 60 GM TUBE TP SCH ×5 (01:28→23:17)
[2023-01-30] MEDS: ELVITEG/COB/EMTRI/TENOF (GENVOYA) TABLET PO SCH (07:21)
[2023-01-30] MEDS: BACITRACIN 0.9 GM PACKET TP SCH ×2 (09:58→21:43)
[2023-01-30] MEDS: amLODIPine BESYLATE 10 MG TABLET (FP) PO SCH (09:58)
[2023-01-30] MEDS: ASPIRIN COATED 81 MG TABLET.EC PO SCH (09:58)
[2023-01-30] MEDS: valACYclovir HCL 500 MG TABLET (FP) PO SCH ×2 (09:59→21:44)
[2023-01-30] MEDS: NICOTINE 14 MG/24 HOURS TOPICAL PATCH TD SCH (09:59)
[2023-01-30] MEDS: PRENATAL VITAMINS W/ FOLIC ACID TABLET (FP) PO SCH (09:59)
[2023-01-30] MEDS: TAMSULOSIN HCL 0.4 MG CAP PO SCH ×2 (09:59→21:44)
[2023-01-30] MEDS: THIAMINE HCL 100 MG TABLET (FP) PO SCH (21:42)
[2023-01-30] MEDS: IBUPROFEN 600 MG TABLET (FP) PO PRN (21:43)
[2023-01-30] MEDS: MELATONIN 5 MG TABLETS PO SCH (21:44)
[2023-01-30] MEDS: traZODone HCL 50 MG TABLET (FP) PO SCH (21:44)
[2023-01-31] MEDS: VITAMINS A AND D TOPICAL OINTMENT 60 GM TUBE TP SCH ×3 (07:03→18:55)
[2023-01-31] MEDS: ELVITEG/COB/EMTRI/TENOF (GENVOYA) TABLET PO SCH (07:03)
[2023-01-31] MEDS: TAMSULOSIN HCL 0.4 MG CAP PO SCH ×2 (10:09→21:11)
[2023-01-31] MEDS: BACITRACIN 0.9 GM PACKET TP SCH ×2 (10:09→21:12)
[2023-01-31] MEDS: PRENATAL VITAMINS W/ FOLIC ACID TABLET (FP) PO SCH (10:09)
[2023-01-31] MEDS: valACYclovir HCL 500 MG TABLET (FP) PO SCH ×3 (10:10→21:11)
[2023-01-31] MEDS: amLODIPine BESYLATE 10 MG TABLET (FP) PO SCH (10:10)
[2023-01-31] MEDS: NICOTINE 14 MG/24 HOURS TOPICAL PATCH TD SCH (10:10)
[2023-01-31] MEDS: ASPIRIN COATED 81 MG TABLET.EC PO SCH (10:10)
[2023-01-31] MEDS ORDERED: BENZOCAINE 20 % GEL TUBE MM PRN (10:18)
[2023-01-31] MEDS: SULFAMETHOXAZOLE/TRIMETHOPRIM 800MG/160MG D.S. TABLET PO SCH ×2 (12:05→21:12)
[2023-01-31] MEDS ORDERED: valACYclovir HCL 500 MG TABLET (FP) PO ONE (13:15)
[2023-01-31] MEDS: IBUPROFEN 600 MG TABLET (FP) PO PRN (16:26)
[2023-01-31] MEDS: MELATONIN 5 MG TABLETS PO SCH (21:11)
[2023-01-31] MEDS: traZODone HCL 50 MG TABLET (FP) PO SCH (21:11)
[2023-01-31] MEDS: THIAMINE HCL 100 MG TABLET (FP) PO SCH (21:12)
[2023-02-01] MEDS: VITAMINS A AND D TOPICAL OINTMENT 60 GM TUBE TP SCH ×2 (03:01→06:03)
[2023-02-01 06:43] VITALS: TEMP 97.1
[2023-02-01] MEDS: ELVITEG/COB/EMTRI/TENOF (GENVOYA) TABLET PO SCH (07:03)
[2023-02-01] MEDS: valACYclovir HCL 500 MG TABLET (FP) PO SCH (09:42)
[2023-02-01] MEDS: BACITRACIN 0.9 GM PACKET TP SCH (09:42)
[2023-02-01] MEDS: ASPIRIN COATED 81 MG TABLET.EC PO SCH (09:43)
[2023-02-01] MEDS: PRENATAL VITAMINS W/ FOLIC ACID TABLET (FP) PO SCH (09:43)
[2023-02-01] MEDS: amLODIPine BESYLATE 10 MG TABLET (FP) PO SCH (09:43)
[2023-02-01] MEDS: SULFAMETHOXAZOLE/TRIMETHOPRIM 800MG/160MG D.S. TABLET PO SCH (09:43)
[2023-02-01] MEDS: TAMSULOSIN HCL 0.4 MG CAP PO SCH (09:43)
[2023-02-01] MEDS: NICOTINE 14 MG/24 HOURS TOPICAL PATCH TD SCH (09:44)
[2023-02-01] MEDS ORDERED: FERROUS SO4 325 MG TABLET (FP) PO SCH (10:00)
[2023-02-01 10:46] VITALS: BP 136/87; PULSE 103; RESP 18
== END 2023-02-01 11:27 | disposition home or self-care (01) | DRG 772 ==
LOC: YASAS 12:16 → Y5N 17:04 → Y3W 01-30 10:36
PROVIDERS: ADMIT Allergy & Immunology; ATTEND Psychiatry & Neurology Pain Medicine
PROC: HZ42ZZZ Group Counseling for Substance Abuse Treatment, Cognitive-Behavioral (ICD-10-PCS; principal; 2023-01-25)
DX: F14.20 Cocaine dependence, uncomplicated (principal); F10.20 Alcohol dependence, uncomplicated; F17.210 Nicotine dependence, cigarettes, uncomplicated; F19.282 Other psychoactive substance dependence with psychoactive substance-induced sleep disorder; F19.280 Other psychoactive substance dependence with psychoactive substance-induced anxiety disorder; F19.24 Other psychoactive substance dependence with psychoactive substance-induced mood disorder; F31.9 Bipolar disorder, unspecified; Z21 Asymptomatic human immunodeficiency virus [HIV] infection status; I10 Essential (primary) hypertension; K74.60 Unspecified cirrhosis of liver; E78.5 Hyperlipidemia, unspecified; N39.0 Urinary tract infection, site not specified; N40.0 Benign prostatic hyperplasia without lower urinary tract symptoms; B18.2 Chronic viral hepatitis C; B00.89 Other herpesviral infection
CPT/HCPCS: 36415; 80053; 81003; 82947; 82962; 83615; 85027; 86780; 86803; 87522; C9803-CS; U0003; U0005

== ENCOUNTER 2023-03-11 17:12 | Inpatient (IN) | payer OTHER ==
[2023-03-11 17:40] VITALS: BMI 21.6
[2023-03-11] MEDS ORDERED: TRIMETHOBENZAMIDE HCL 200MG/2ML INJ IM ONE ×2 (18:23→18:25)
[2023-03-11] MEDS ORDERED: POLYETHYLENE GLYCOL (HEALTHYLAX) 3350 17 GM PACKET PO PRN (18:34)
[2023-03-11] MEDS ORDERED: BENZONATATE 200 MG CAPSULE PO PRN (18:34)
[2023-03-11] MEDS ORDERED: MAG HYDROX/AL HYDROX/SIMETH 30 ML UNIT-DOSE CUP PO PRN (18:34)
[2023-03-11] MEDS ORDERED: ACETAMINOPHEN 325 MG TABLET (FP) PO PRN (18:34)
[2023-03-11] MEDS ORDERED: NALOXONE HCL 0.4 MG/ML VIAL IM PRN (18:34)
[2023-03-11] MEDS ORDERED: DICYCLOMINE HCL 10 MG CAPSULE PO PRN (18:34)
[2023-03-11] MEDS ORDERED: hydrOXYzine PAMOATE 25 MG CAPSULE (FP) PO PRN (18:34)
[2023-03-11] MEDS ORDERED: guaiFENesin 600 MG TABLET.ER (FP) PO PRN (18:34)
[2023-03-11] MEDS ORDERED: LOPERAMIDE HCL 2 MG CAPSULE PO PRN (18:34)
[2023-03-11] MEDS ORDERED: MAGNESIUM HYDROX 2400MG/30ML ORAL SUSPENSION 30 ML CUP PO PRN (18:34)
[2023-03-11] MEDS ORDERED: IBUPROFEN 400 MG TABLET (FP) PO PRN (18:34)
[2023-03-11] MEDS ORDERED: NICOTINE 10 MG CARTRIDGE (INHALER) IH PRN (18:34)
[2023-03-11] MEDS ORDERED: ONDANSETRON *ODT* 4 MG TABLET SL PRN (18:34)
[2023-03-11] MEDS ORDERED: BISMUTH SUBSALICYLATE 524 MG/30 ML PO PRN (18:34)
[2023-03-11] MEDS ORDERED: BENZOCAINE/MENTHOL (CHLORASEPTIC ) LOZENGE MM PRN (18:34)
[2023-03-11] MEDS ORDERED: IBUPROFEN 600 MG TABLET (FP) PO PRN (18:34)
[2023-03-11] MEDS ORDERED: LORazepam 1 MG TABLET PO PRN (18:34)
[2023-03-11] MEDS ORDERED: NALOXONE HCL (KLOXXADO) 8 MG SPRAY NS PRN (18:34)
[2023-03-11] MEDS ORDERED: METHOCARBAMOL 500 MG TABLET PO PRN (18:34)
[2023-03-11] MEDS: MELATONIN 5 MG TABLETS PO SCH (23:17)
[2023-03-11] MEDS: THIAMINE HCL 100 MG TABLET (FP) PO SCH (23:17)
[2023-03-11] MEDS: LORazepam 2 MG TABLET PO SCH (23:17)
[2023-03-11] MEDS: amLODIPine BESYLATE 10 MG TABLET (FP) PO SCH (23:54)
[2023-03-11] MEDS: ASPIRIN COATED 81 MG TABLET.EC PO SCH (23:54)
[2023-03-12] MEDS: LORazepam 2 MG TABLET PO SCH ×4 (06:00→22:27)
[2023-03-12 10:52] LABS: POTASSIUM 4.1 mmol/L (3.5-5.1)
[2023-03-12 10:58] LABS: CALCIUM 8.4 mg/dL (8.5-10.1)
[2023-03-12 11:02] LABS: CREATININE 0.8 mg/dL (0.55-1.3)
[2023-03-12 11:03] LABS: BILIRUBIN,TOTAL 0.3 mg/dL (0.2-1)
[2023-03-12 11:13] LABS: HEMATOCRIT 38.8 % (35.4-49); HEMOGLOBIN 13.2 GM/dL (11.7-16.9); MCH 30.5 pg (25.7-33.7); MCHC 34.1 g/dl (32.0-35.9); MEAN CELL VOLUME 89.4 fl (80-96); MEAN PLT VOLUME 8.5 fl (7.5-11.1); PLATELET COUNT 222 10^3/uL (134-434); RBC 4.34 M/mm3 (4.00-5.60); RDW 15.9 % (11.9-15.9); WHITE BLOOD COUNT 7.9 K/mm3 (4.0-10.0)
[2023-03-12] MEDS: NICOTINE 7 MG/24 HOURS TOPICAL PATCH TD SCH (11:35)
[2023-03-12] MEDS: amLODIPine BESYLATE 10 MG TABLET (FP) PO SCH (11:35)
[2023-03-12] MEDS: PRENATAL VITAMINS W/ FOLIC ACID TABLET (FP) PO SCH (11:35)
[2023-03-12] MEDS: ASPIRIN COATED 81 MG TABLET.EC PO SCH (11:35)
[2023-03-12] MEDS: THIAMINE HCL 100 MG TABLET (FP) PO SCH (22:12)
[2023-03-12] MEDS: MELATONIN 5 MG TABLETS PO SCH (22:12)
[2023-03-13] MEDS: LORazepam 1 MG TABLET PO SCH ×4 (05:40→23:04)
[2023-03-13] MEDS: TAMSULOSIN HCL 0.4 MG CAP PO SCH ×2 (07:47→23:04)
[2023-03-13] MEDS: amLODIPine BESYLATE 10 MG TABLET (FP) PO SCH (10:48)
[2023-03-13] MEDS: ASPIRIN COATED 81 MG TABLET.EC PO SCH (10:48)
[2023-03-13] MEDS: NICOTINE 7 MG/24 HOURS TOPICAL PATCH TD SCH (10:48)
[2023-03-13] MEDS: PRENATAL VITAMINS W/ FOLIC ACID TABLET (FP) PO SCH (10:50)
[2023-03-13] MEDS ORDERED: valACYclovir HCL 500 MG TABLET (FP) PO ONE (12:00)
[2023-03-13] MEDS: MELATONIN 5 MG TABLETS PO SCH (23:03)
[2023-03-13] MEDS: THIAMINE HCL 100 MG TABLET (FP) PO SCH (23:04)
[2023-03-13] MEDS: valACYclovir HCL 500 MG TABLET (FP) PO SCH (23:04)
[2023-03-14] MEDS ORDERED: LORazepam 0.5 MG TABLET PO PRN
[2023-03-14] MEDS: LORazepam 0.5 MG TABLET PO SCH ×4 (06:05→22:15)
[2023-03-14] MEDS: TAMSULOSIN HCL 0.4 MG CAP PO SCH ×2 (07:53→22:15)
[2023-03-14] MEDS: ELVITEG/COB/EMTRI/TENOF (GENVOYA) TABLET PO SCH (07:53)
[2023-03-14] MEDS: NICOTINE 7 MG/24 HOURS TOPICAL PATCH TD SCH (10:16)
[2023-03-14] MEDS: amLODIPine BESYLATE 10 MG TABLET (FP) PO SCH (10:16)
[2023-03-14] MEDS: PRENATAL VITAMINS W/ FOLIC ACID TABLET (FP) PO SCH (10:16)
[2023-03-14] MEDS: ASPIRIN COATED 81 MG TABLET.EC PO SCH (10:16)
[2023-03-14] MEDS: valACYclovir HCL 500 MG TABLET (FP) PO SCH ×2 (10:16→22:15)
[2023-03-14] MEDS: THIAMINE HCL 100 MG TABLET (FP) PO SCH (22:15)
[2023-03-14] MEDS: MELATONIN 5 MG TABLETS PO SCH (22:17)
[2023-03-15] MEDS ORDERED: LORazepam 0.5 MG TABLET PO ONE (05:00)
[2023-03-15] MEDS: ELVITEG/COB/EMTRI/TENOF (GENVOYA) TABLET PO SCH (08:00)
[2023-03-15] MEDS: TAMSULOSIN HCL 0.4 MG CAP PO SCH (08:12)
[2023-03-15 08:52] VITALS: BP 149/93; PULSE 92; RESP 18; TEMP 98
[2023-03-15] MEDS: amLODIPine BESYLATE 10 MG TABLET (FP) PO SCH (09:42)
[2023-03-15] MEDS: valACYclovir HCL 500 MG TABLET (FP) PO SCH (09:42)
[2023-03-15] MEDS: PRENATAL VITAMINS W/ FOLIC ACID TABLET (FP) PO SCH (09:42)
[2023-03-15] MEDS: ASPIRIN COATED 81 MG TABLET.EC PO SCH (09:42)
[2023-03-15] MEDS: NICOTINE 7 MG/24 HOURS TOPICAL PATCH TD SCH (09:43)
== END 2023-03-15 10:00 | disposition other institution (70) | DRG 774 ==
LOC: YASAS 17:12 → Y6N 18:33
PROVIDERS: ADMIT Allergy & Immunology; ATTEND Surgery
PROC: HZ2ZZZZ Detoxification Services for Substance Abuse Treatment (ICD-10-PCS; principal; 2023-03-11)
DX: F10.230 Alcohol dependence with withdrawal, uncomplicated (principal); F14.20 Cocaine dependence, uncomplicated; F17.210 Nicotine dependence, cigarettes, uncomplicated; Z21 Asymptomatic human immunodeficiency virus [HIV] infection status; A60.1 Herpesviral infection of perianal skin and rectum; E78.00 Pure hypercholesterolemia, unspecified; I10 Essential (primary) hypertension; K70.30 Alcoholic cirrhosis of liver without ascites; B18.2 Chronic viral hepatitis C; J45.20 Mild intermittent asthma, uncomplicated; N40.0 Benign prostatic hyperplasia without lower urinary tract symptoms; R63.4 Abnormal weight loss; Z68.21 Body mass index [BMI] 21.0-21.9, adult; Z88.8 Allergy status to other drugs, medicaments and biological substances
CPT/HCPCS: 36415; 80053; 85027; 86780; 87635; 87811

== ENCOUNTER 2023-04-19 13:09 | Inpatient (IN) | payer OTHER ==
[2023-04-19 13:39] VITALS: BMI 22.8
[2023-04-19] MEDS ORDERED: guaiFENesin 600 MG TABLET.ER (FP) PO PRN (14:34)
[2023-04-19] MEDS ORDERED: AMMONIUM LACTATE 12% LOTION 225 GM BOTTLE TP PRN (14:34)
[2023-04-19] MEDS ORDERED: NALOXONE HCL 0.4 MG/ML VIAL IM PRN (14:34)
[2023-04-19] MEDS ORDERED: IBUPROFEN 600 MG TABLET (FP) PO PRN (14:34)
[2023-04-19] MEDS ORDERED: BENZOCAINE/MENTHOL (CHLORASEPTIC ) LOZENGE MM PRN (14:34)
[2023-04-19] MEDS ORDERED: COLLOIDAL OATMEAL 1 BAR EACH TP PRN (14:34)
[2023-04-19] MEDS ORDERED: MAGNESIUM HYDROX 2400MG/30ML ORAL SUSPENSION 30 ML CUP PO PRN (14:34)
[2023-04-19] MEDS ORDERED: IBUPROFEN 400 MG TABLET (FP) PO PRN (14:34)
[2023-04-19] MEDS ORDERED: BENZONATATE 200 MG CAPSULE PO PRN (14:34)
[2023-04-19] MEDS ORDERED: NALOXONE HCL (KLOXXADO) 8 MG SPRAY NS PRN (14:34)
[2023-04-19] MEDS ORDERED: hydrOXYzine PAMOATE 25 MG CAPSULE (FP) PO PRN (14:34)
[2023-04-19] MEDS ORDERED: POLYETHYLENE GLYCOL (HEALTHYLAX) 3350 17 GM PACKET PO PRN (14:34)
[2023-04-19] MEDS ORDERED: ACETAMINOPHEN 325 MG TABLET (FP) PO PRN (14:34)
[2023-04-19] MEDS ORDERED: MAG HYDROX/AL HYDROX/SIMETH 30 ML UNIT-DOSE CUP PO PRN (14:34)
[2023-04-19] MEDS ORDERED: LOPERAMIDE HCL 2 MG CAPSULE PO PRN (14:34)
[2023-04-19] MEDS ORDERED: ALBUTEROL SO4 HFA INHALER IH PRN (14:38)
[2023-04-19] MEDS: PRENATAL VITAMINS W/ FOLIC ACID TABLET (FP) PO SCH (16:31)
[2023-04-19] MEDS: MELATONIN 5 MG TABLETS PO SCH (21:20)
[2023-04-19] MEDS: THIAMINE HCL 100 MG TABLET (FP) PO SCH (21:20)
[2023-04-19] MEDS: valACYclovir HCL 500 MG TABLET (FP) PO SCH (21:21)
[2023-04-20] MEDS: ELVITEG/COB/EMTRI/TENOF (GENVOYA) TABLET PO SCH (08:41)
[2023-04-20] MEDS: TAMSULOSIN HCL 0.4 MG CAP PO SCH (08:41)
[2023-04-20] MEDS: amLODIPine BESYLATE 10 MG TABLET (FP) PO SCH (10:38)
[2023-04-20] MEDS: PRENATAL VITAMINS W/ FOLIC ACID TABLET (FP) PO SCH (10:38)
[2023-04-20] MEDS: ASPIRIN COATED 81 MG TABLET.EC PO SCH (10:39)
[2023-04-20] MEDS: valACYclovir HCL 500 MG TABLET (FP) PO SCH ×2 (10:39→21:40)
[2023-04-20 12:04] LABS: PH,URINE 6.5 (5.0-8.0); URINE APPEARANCE CLEAR; URINE BILIRUBIN NEGATIVE (NEGATIVE); URINE COLOR YELLOW; URINE GLUCOSE (UA) NEGATIVE (NEGATIVE); URINE KETONE NEGATIVE (NEGATIVE); URINE LEUK ESTERASE NEGATIVE (NEGATIVE); URINE NITRITE NEGATIVE (NEGATIVE); URINE PROTEIN NEGATIVE (NEGATIVE)
[2023-04-20] MEDS: MELATONIN 5 MG TABLETS PO SCH (21:40)
[2023-04-20] MEDS: THIAMINE HCL 100 MG TABLET (FP) PO SCH (21:40)
[2023-04-21] MEDS: ELVITEG/COB/EMTRI/TENOF (GENVOYA) TABLET PO SCH (07:14)
[2023-04-21] MEDS: TAMSULOSIN HCL 0.4 MG CAP PO SCH (09:01)
[2023-04-21] MEDS: PRENATAL VITAMINS W/ FOLIC ACID TABLET (FP) PO SCH (09:33)
[2023-04-21] MEDS: ASPIRIN COATED 81 MG TABLET.EC PO SCH (09:33)
[2023-04-21] MEDS: amLODIPine BESYLATE 10 MG TABLET (FP) PO SCH (09:33)
[2023-04-21] MEDS: valACYclovir HCL 500 MG TABLET (FP) PO SCH ×2 (09:34→21:07)
[2023-04-21] MEDS: MELATONIN 5 MG TABLETS PO SCH (21:07)
[2023-04-21] MEDS: THIAMINE HCL 100 MG TABLET (FP) PO SCH (21:07)
[2023-04-22] MEDS: ELVITEG/COB/EMTRI/TENOF (GENVOYA) TABLET PO SCH (08:24)
[2023-04-22] MEDS: TAMSULOSIN HCL 0.4 MG CAP PO SCH (08:24)
[2023-04-22] MEDS: amLODIPine BESYLATE 10 MG TABLET (FP) PO SCH (10:06)
[2023-04-22] MEDS: PRENATAL VITAMINS W/ FOLIC ACID TABLET (FP) PO SCH (10:06)
[2023-04-22] MEDS: valACYclovir HCL 500 MG TABLET (FP) PO SCH ×2 (10:06→21:27)
[2023-04-22] MEDS: ASPIRIN COATED 81 MG TABLET.EC PO SCH (10:07)
[2023-04-22] MEDS: THIAMINE HCL 100 MG TABLET (FP) PO SCH (21:27)
[2023-04-22] MEDS: MELATONIN 5 MG TABLETS PO SCH (21:27)
[2023-04-23 06:52] VITALS: RESP 18
[2023-04-23] MEDS: ELVITEG/COB/EMTRI/TENOF (GENVOYA) TABLET PO SCH (07:09)
[2023-04-23] MEDS: TAMSULOSIN HCL 0.4 MG CAP PO SCH (09:25)
[2023-04-23] MEDS: PRENATAL VITAMINS W/ FOLIC ACID TABLET (FP) PO SCH (09:49)
[2023-04-23] MEDS: amLODIPine BESYLATE 10 MG TABLET (FP) PO SCH (09:49)
[2023-04-23] MEDS: valACYclovir HCL 500 MG TABLET (FP) PO SCH ×2 (09:49→21:13)
[2023-04-23] MEDS: ASPIRIN COATED 81 MG TABLET.EC PO SCH (09:49)
[2023-04-23] MEDS: MELATONIN 5 MG TABLETS PO SCH (21:12)
[2023-04-23] MEDS: THIAMINE HCL 100 MG TABLET (FP) PO SCH (21:12)
[2023-04-24] MEDS: ELVITEG/COB/EMTRI/TENOF (GENVOYA) TABLET PO SCH (08:06)
[2023-04-24] MEDS: TAMSULOSIN HCL 0.4 MG CAP PO SCH (09:15)
[2023-04-24] MEDS: valACYclovir HCL 500 MG TABLET (FP) PO SCH ×2 (09:32→20:59)
[2023-04-24] MEDS: ASPIRIN COATED 81 MG TABLET.EC PO SCH (09:32)
[2023-04-24] MEDS: PRENATAL VITAMINS W/ FOLIC ACID TABLET (FP) PO SCH (09:32)
[2023-04-24] MEDS: amLODIPine BESYLATE 10 MG TABLET (FP) PO SCH (09:32)
[2023-04-24] MEDS: THIAMINE HCL 100 MG TABLET (FP) PO SCH (20:59)
[2023-04-24] MEDS: MELATONIN 5 MG TABLETS PO SCH (21:00)
[2023-04-25] MEDS: ELVITEG/COB/EMTRI/TENOF (GENVOYA) TABLET PO SCH (07:13)
[2023-04-25] MEDS: TAMSULOSIN HCL 0.4 MG CAP PO SCH (07:36)
[2023-04-25 08:21] VITALS: TEMP 97.3
[2023-04-25 09:31] VITALS: BP 119/74; PULSE 80
[2023-04-25] MEDS: PRENATAL VITAMINS W/ FOLIC ACID TABLET (FP) PO SCH (09:41)
[2023-04-25] MEDS: ASPIRIN COATED 81 MG TABLET.EC PO SCH (09:42)
[2023-04-25] MEDS: valACYclovir HCL 500 MG TABLET (FP) PO SCH (09:42)
[2023-04-25] MEDS: amLODIPine BESYLATE 10 MG TABLET (FP) PO SCH (09:42)
== END 2023-04-25 10:54 | disposition home or self-care (01) | DRG 772 ==
LOC: YASAS 13:09 → Y3W 15:50
PROVIDERS: ADMIT Allergy & Immunology; ATTEND Psychiatry & Neurology Pain Medicine
PROC: HZ42ZZZ Group Counseling for Substance Abuse Treatment, Cognitive-Behavioral (ICD-10-PCS; principal; 2023-04-19)
DX: F10.20 Alcohol dependence, uncomplicated (principal); F14.20 Cocaine dependence, uncomplicated; F17.210 Nicotine dependence, cigarettes, uncomplicated; F31.9 Bipolar disorder, unspecified; A60.1 Herpesviral infection of perianal skin and rectum; E78.5 Hyperlipidemia, unspecified; I10 Essential (primary) hypertension; J45.20 Mild intermittent asthma, uncomplicated; Z21 Asymptomatic human immunodeficiency virus [HIV] infection status; K70.30 Alcoholic cirrhosis of liver without ascites; N40.0 Benign prostatic hyperplasia without lower urinary tract symptoms; Z86.19 Personal history of other infectious and parasitic diseases
CPT/HCPCS: 81003; 87635; 87811

== ENCOUNTER 2023-05-21 12:41 | Inpatient (IN) | payer OTHER ==
[2023-05-21 13:58] VITALS: BMI 22.2
[2023-05-21] MEDS ORDERED: NALOXONE HCL 0.4 MG/ML VIAL IM PRN (16:44)
[2023-05-21] MEDS ORDERED: BENZONATATE 200 MG CAPSULE PO PRN (16:44)
[2023-05-21] MEDS ORDERED: hydrOXYzine PAMOATE 25 MG CAPSULE (FP) PO PRN (16:44)
[2023-05-21] MEDS ORDERED: guaiFENesin 600 MG TABLET.ER (FP) PO PRN (16:44)
[2023-05-21] MEDS ORDERED: ONDANSETRON *ODT* 4 MG TABLET SL PRN (16:44)
[2023-05-21] MEDS ORDERED: IBUPROFEN 600 MG TABLET (FP) PO PRN (16:44)
[2023-05-21] MEDS ORDERED: diazePAM 5 MG TABLET PO PRN (16:44)
[2023-05-21] MEDS ORDERED: BENZOCAINE/MENTHOL (CHLORASEPTIC ) LOZENGE MM PRN (16:44)
[2023-05-21] MEDS ORDERED: BISMUTH SUBSALICYLATE 524 MG/30 ML PO PRN (16:44)
[2023-05-21] MEDS ORDERED: IBUPROFEN 400 MG TABLET (FP) PO PRN (16:44)
[2023-05-21] MEDS ORDERED: DICYCLOMINE HCL 10 MG CAPSULE PO PRN (16:44)
[2023-05-21] MEDS ORDERED: METHOCARBAMOL 500 MG TABLET PO PRN (16:44)
[2023-05-21] MEDS ORDERED: MAG HYDROX/AL HYDROX/SIMETH 30 ML UNIT-DOSE CUP PO PRN (16:44)
[2023-05-21] MEDS ORDERED: ACETAMINOPHEN 325 MG TABLET (FP) PO PRN (16:44)
[2023-05-21] MEDS ORDERED: NALOXONE HCL (KLOXXADO) 8 MG SPRAY NS PRN (16:44)
[2023-05-21] MEDS ORDERED: POLYETHYLENE GLYCOL (HEALTHYLAX) 3350 17 GM PACKET PO PRN (16:44)
[2023-05-21] MEDS ORDERED: MAGNESIUM HYDROX 2400MG/30ML ORAL SUSPENSION 30 ML CUP PO PRN (16:44)
[2023-05-21] MEDS ORDERED: LOPERAMIDE HCL 2 MG CAPSULE PO PRN (16:44)
[2023-05-21] MEDS ORDERED: diazePAM 5 MG TABLET ONE (16:54)
[2023-05-21] MEDS: diazePAM 5 MG TABLET PO SCH ×2 (16:56→22:32)
[2023-05-21] MEDS ORDERED: ALBUTEROL SO4 HFA INHALER IH PRN (18:09)
[2023-05-21] MEDS: MELATONIN 5 MG TABLETS PO SCH (22:31)
[2023-05-21] MEDS: valACYclovir HCL 500 MG TABLET (FP) PO SCH (22:31)
[2023-05-21] MEDS: THIAMINE HCL 100 MG TABLET (FP) PO SCH (22:31)
[2023-05-22] MEDS: diazePAM 5 MG TABLET PO SCH ×4 (06:00→22:56)
[2023-05-22] MEDS: TAMSULOSIN HCL 0.4 MG CAP PO SCH (08:38)
[2023-05-22] MEDS: ELVITEG/COB/EMTRI/TENOF (GENVOYA) TABLET PO SCH (08:39)
[2023-05-22 09:54] LABS: POTASSIUM 3.6 mmol/L (3.5-5.1)
[2023-05-22 09:55] LABS: HEMATOCRIT 35.3 % (35.4-49); HEMOGLOBIN 12.2 GM/dL (11.7-16.9); MCH 30.9 pg (25.7-33.7); MCHC 34.4 g/dl (32.0-35.9); MEAN CELL VOLUME 89.7 fl (80-96); MEAN PLT VOLUME 8.7 fl (7.5-11.1); PLATELET COUNT 208 10^3/uL (134-434); RBC 3.94 M/mm3 (4.00-5.60); RDW 14.5 % (11.9-15.9); WHITE BLOOD COUNT 5.8 K/mm3 (4.0-10.0)
[2023-05-22 10:06] LABS: ALBUMIN 2.8 g/dl (3.4-5.0); BLOOD UREA NITROGEN 21.5 mg/dL (7-18); CALCIUM 7.9 mg/dL (8.5-10.1)
[2023-05-22 10:10] LABS: BILIRUBIN,TOTAL 0.2 mg/dL (0.2-1); TOT PROT 6.2 g/dl (6.4-8.2)
[2023-05-22] MEDS: valACYclovir HCL 500 MG TABLET (FP) PO SCH ×2 (10:30→22:53)
[2023-05-22] MEDS: PRENATAL VITAMINS W/ FOLIC ACID TABLET (FP) PO SCH (10:30)
[2023-05-22] MEDS: amLODIPine BESYLATE 10 MG TABLET (FP) PO SCH (10:30)
[2023-05-22] MEDS: ASPIRIN COATED 81 MG TABLET.EC PO SCH (10:30)
[2023-05-22] MEDS: THIAMINE HCL 100 MG TABLET (FP) PO SCH (22:55)
[2023-05-22] MEDS: MELATONIN 5 MG TABLETS PO SCH (22:55)
[2023-05-23] MEDS: diazePAM 5 MG TABLET PO SCH ×3 (06:12→23:08)
[2023-05-23] MEDS: ELVITEG/COB/EMTRI/TENOF (GENVOYA) TABLET PO SCH (07:01)
[2023-05-23] MEDS: PRENATAL VITAMINS W/ FOLIC ACID TABLET (FP) PO SCH (09:05)
[2023-05-23] MEDS: amLODIPine BESYLATE 10 MG TABLET (FP) PO SCH (09:05)
[2023-05-23] MEDS: TAMSULOSIN HCL 0.4 MG CAP PO SCH (09:05)
[2023-05-23] MEDS: ASPIRIN COATED 81 MG TABLET.EC PO SCH (09:05)
[2023-05-23] MEDS: valACYclovir HCL 500 MG TABLET (FP) PO SCH ×2 (09:05→23:05)
[2023-05-23] MEDS ORDERED: PERMETHRIN (NIX CREAM SCALP RINSE) 59 ML 1% BOTTLE TP ONE (13:00)
[2023-05-23] MEDS: THIAMINE HCL 100 MG TABLET (FP) PO SCH (23:05)
[2023-05-23] MEDS: MELATONIN 5 MG TABLETS PO SCH (23:07)
[2023-05-24] MEDS: diazePAM 5 MG TABLET PO SCH ×2 (06:25→17:35)
[2023-05-24] MEDS: ELVITEG/COB/EMTRI/TENOF (GENVOYA) TABLET PO SCH (07:01)
[2023-05-24] MEDS: TAMSULOSIN HCL 0.4 MG CAP PO SCH (09:17)
[2023-05-24] MEDS: valACYclovir HCL 500 MG TABLET (FP) PO SCH ×2 (09:17→22:43)
[2023-05-24] MEDS: PRENATAL VITAMINS W/ FOLIC ACID TABLET (FP) PO SCH (09:17)
[2023-05-24] MEDS: ASPIRIN COATED 81 MG TABLET.EC PO SCH (09:17)
[2023-05-24] MEDS: amLODIPine BESYLATE 10 MG TABLET (FP) PO SCH (09:18)
[2023-05-24 17:33] VITALS: RESP 18
[2023-05-24] MEDS: THIAMINE HCL 100 MG TABLET (FP) PO SCH (22:43)
[2023-05-24] MEDS: MELATONIN 5 MG TABLETS PO SCH (22:44)
[2023-05-25] MEDS ORDERED: diazePAM 5 MG TABLET PO ONE (06:00)
[2023-05-25] MEDS: ELVITEG/COB/EMTRI/TENOF (GENVOYA) TABLET PO SCH (07:20)
[2023-05-25 09:08] VITALS: BP 112/75; PULSE 72; TEMP 97.5
[2023-05-25] MEDS: TAMSULOSIN HCL 0.4 MG CAP PO SCH ×2 (09:22→09:26)
[2023-05-25] MEDS: ASPIRIN COATED 81 MG TABLET.EC PO SCH (09:26)
[2023-05-25] MEDS: PRENATAL VITAMINS W/ FOLIC ACID TABLET (FP) PO SCH (09:26)
[2023-05-25] MEDS: valACYclovir HCL 500 MG TABLET (FP) PO SCH (09:26)
[2023-05-25] MEDS: amLODIPine BESYLATE 10 MG TABLET (FP) PO SCH (09:26)
== END 2023-05-25 09:18 | disposition home or self-care (01) | DRG 774 ==
LOC: YASAS 12:41 → Y3N 17:02
PROVIDERS: ADMIT Allergy & Immunology; ATTEND Surgery
PROC: HZ2ZZZZ Detoxification Services for Substance Abuse Treatment (ICD-10-PCS; principal; 2023-05-21)
DX: F10.230 Alcohol dependence with withdrawal, uncomplicated (principal); F14.20 Cocaine dependence, uncomplicated; Z21 Asymptomatic human immunodeficiency virus [HIV] infection status; E78.5 Hyperlipidemia, unspecified; I10 Essential (primary) hypertension; J45.909 Unspecified asthma, uncomplicated; N40.0 Benign prostatic hyperplasia without lower urinary tract symptoms; Z88.8 Allergy status to other drugs, medicaments and biological substances; Z86.19 Personal history of other infectious and parasitic diseases
CPT/HCPCS: 36415; 80053; 85027; 86780; 87635

== ENCOUNTER 2023-07-19 12:49 | Inpatient (IN) | payer OTHER ==
[2023-07-19 14:18] VITALS: BMI 23.1
[2023-07-19] MEDS ORDERED: BISMUTH SUBSALICYLATE 262 MG/15 ML BTL PO PRN (15:02)
[2023-07-19] MEDS ORDERED: IBUPROFEN 600 MG TABLET (FP) PO PRN (15:02)
[2023-07-19] MEDS ORDERED: NALOXONE HCL 0.4 MG/ML VIAL IM PRN (15:02)
[2023-07-19] MEDS ORDERED: DICYCLOMINE HCL 10 MG CAPSULE PO PRN (15:02)
[2023-07-19] MEDS ORDERED: guaiFENesin 600 MG TABLET.ER (FP) PO PRN (15:02)
[2023-07-19] MEDS ORDERED: LORazepam 1 MG TABLET PO PRN (15:02)
[2023-07-19] MEDS ORDERED: ONDANSETRON *ODT* 4 MG TABLET SL PRN (15:02)
[2023-07-19] MEDS ORDERED: BENZOCAINE/MENTHOL (CHLORASEPTIC ) LOZENGE MM PRN (15:02)
[2023-07-19] MEDS ORDERED: NALOXONE HCL (KLOXXADO) 8 MG SPRAY NS PRN (15:02)
[2023-07-19] MEDS ORDERED: BENZONATATE 200 MG CAPSULE PO PRN (15:02)
[2023-07-19] MEDS ORDERED: MAGNESIUM HYDROX 2400MG/30ML ORAL SUSPENSION 30 ML CUP PO PRN (15:02)
[2023-07-19] MEDS ORDERED: ACETAMINOPHEN 325 MG TABLET (FP) PO PRN (15:02)
[2023-07-19] MEDS ORDERED: METHOCARBAMOL 500 MG TABLET PO PRN (15:02)
[2023-07-19] MEDS ORDERED: LORazepam 2 MG TABLET PO ONE (15:02)
[2023-07-19] MEDS ORDERED: POLYETHYLENE GLYCOL (HEALTHYLAX) 3350 17 GM PACKET PO PRN (15:02)
[2023-07-19] MEDS ORDERED: IBUPROFEN 400 MG TABLET (FP) PO PRN (15:02)
[2023-07-19] MEDS ORDERED: hydrOXYzine PAMOATE 25 MG CAPSULE (FP) PO PRN (15:02)
[2023-07-19] MEDS ORDERED: LOPERAMIDE HCL 2 MG CAPSULE PO PRN (15:02)
[2023-07-19] MEDS ORDERED: MAG HYDROX/AL HYDROX/SIMETH 30 ML UNIT-DOSE CUP PO PRN (15:02)
[2023-07-19] MEDS ORDERED: ALBUTEROL SO4 HFA INHALER IH PRN (15:06)
[2023-07-19] MEDS ORDERED: LORazepam 2 MG TABLET ONE (15:41)
[2023-07-19] MEDS: LORazepam 2 MG TABLET PO SCH ×2 (17:57→23:07)
[2023-07-19] MEDS: MELATONIN 5 MG TABLETS PO SCH (22:05)
[2023-07-19] MEDS: THIAMINE HCL 100 MG TABLET (FP) PO SCH (22:06)
[2023-07-20] MEDS: valACYclovir HCL 500 MG TABLET (FP) PO SCH ×3 (00:06→23:01)
[2023-07-20] MEDS: LORazepam 2 MG TABLET PO SCH ×4 (05:50→23:01)
[2023-07-20] MEDS: ELVITEG/COB/EMTRI/TENOF (GENVOYA) TABLET PO SCH ×2 (07:27→07:49)
[2023-07-20] MEDS: TAMSULOSIN HCL 0.4 MG CAP PO SCH (07:45)
[2023-07-20] MEDS: ASPIRIN COATED 81 MG TABLET.EC PO SCH (10:39)
[2023-07-20] MEDS: amLODIPine BESYLATE 10 MG TABLET (FP) PO SCH (10:39)
[2023-07-20] MEDS: NICOTINE 14 MG/24 HOURS TOPICAL PATCH TD SCH ×2 (10:41→10:42)
[2023-07-20] MEDS: PRENATAL VITAMINS W/ FOLIC ACID TABLET (FP) PO SCH ×2 (10:41→10:42)
[2023-07-20 12:21] LABS: CHLORIDE 106 mmol/L (98-107); POTASSIUM 3.8 mmol/L (3.5-5.1); SODIUM 139 mmol/L (136-145)
[2023-07-20 12:23] LABS: HEMATOCRIT 37.4 % (35.4-49); HEMOGLOBIN 12.4 GM/dL (11.7-16.9); MCH 30.4 pg (25.7-33.7); MCHC 33.1 g/dl (32.0-35.9); MEAN CELL VOLUME 92.1 fl (80-96); MEAN PLT VOLUME 8.5 fl (7.5-11.1); PLATELET COUNT 266 10^3/uL (134-434); RBC 4.06 M/mm3 (4.00-5.60); RDW 14.2 % (11.9-15.9); WHITE BLOOD COUNT 6.2 K/mm3 (4.0-10.0)
[2023-07-20 12:26] LABS: BLOOD UREA NITROGEN 22.5 mg/dL (7-18)
[2023-07-20 12:27] LABS: CREATININE 0.9 mg/dL (0.55-1.3); GLUCOSE,RANDOM 87 mg/dL (74-106)
[2023-07-20 12:28] LABS: TOT PROT 6.7 g/dl (6.4-8.2)
[2023-07-20 12:29] LABS: BILIRUBIN,TOTAL 0.2 mg/dL (0.2-1); SGPT/ALT 34 U/L (13-61)
[2023-07-20 12:30] LABS: ALK PHOS 115 U/L (45-117); ANION GAP 5 mmol/L (4-13); CO2 27 mmol/L (21-32)
[2023-07-20 12:31] LABS: ALBUMIN 2.8 g/dl (3.4-5.0)
[2023-07-20 12:34] LABS: SGOT/AST 17 U/L (15-37)
[2023-07-20] MEDS: THIAMINE HCL 100 MG TABLET (FP) PO SCH (23:01)
[2023-07-20] MEDS: MELATONIN 5 MG TABLETS PO SCH (23:01)
[2023-07-20] MEDS: QUEtiapine FUMARATE 100 MG TABLET (FP) PO SCH (23:01)
[2023-07-20] MEDS: traZODone HCL 50 MG TABLET (FP) PO SCH (23:01)
[2023-07-21] MEDS: LORazepam 1 MG TABLET PO SCH ×4 (05:53→23:55)
[2023-07-21] MEDS: ELVITEG/COB/EMTRI/TENOF (GENVOYA) TABLET PO SCH (07:31)
[2023-07-21] MEDS: valACYclovir HCL 500 MG TABLET (FP) PO SCH ×2 (10:46→23:55)
[2023-07-21] MEDS: PRENATAL VITAMINS W/ FOLIC ACID TABLET (FP) PO SCH (10:46)
[2023-07-21] MEDS: ASPIRIN COATED 81 MG TABLET.EC PO SCH (10:46)
[2023-07-21] MEDS: TAMSULOSIN HCL 0.4 MG CAP PO SCH (10:46)
[2023-07-21] MEDS: amLODIPine BESYLATE 10 MG TABLET (FP) PO SCH (10:46)
[2023-07-21] MEDS: NICOTINE 14 MG/24 HOURS TOPICAL PATCH TD SCH (10:47)
[2023-07-21 20:36] VITALS: RESP 17
[2023-07-21] MEDS: QUEtiapine FUMARATE 100 MG TABLET (FP) PO SCH (23:54)
[2023-07-21] MEDS: traZODone HCL 50 MG TABLET (FP) PO SCH (23:54)
[2023-07-21] MEDS: MELATONIN 5 MG TABLETS PO SCH (23:54)
[2023-07-21] MEDS: THIAMINE HCL 100 MG TABLET (FP) PO SCH (23:55)
[2023-07-22] MEDS ORDERED: LORazepam 0.5 MG TABLET PO PRN
[2023-07-22] MEDS: LORazepam 0.5 MG TABLET PO SCH ×2 (05:57→10:40)
[2023-07-22] MEDS: TAMSULOSIN HCL 0.4 MG CAP PO SCH (09:38)
[2023-07-22] MEDS: PRENATAL VITAMINS W/ FOLIC ACID TABLET (FP) PO SCH (09:38)
[2023-07-22] MEDS: valACYclovir HCL 500 MG TABLET (FP) PO SCH (09:38)
[2023-07-22] MEDS: amLODIPine BESYLATE 10 MG TABLET (FP) PO SCH (09:38)
[2023-07-22] MEDS: ELVITEG/COB/EMTRI/TENOF (GENVOYA) TABLET PO SCH (09:38)
[2023-07-22] MEDS: ASPIRIN COATED 81 MG TABLET.EC PO SCH (09:38)
[2023-07-22] MEDS: NICOTINE 14 MG/24 HOURS TOPICAL PATCH TD SCH (09:38)
[2023-07-22] MEDS ORDERED: LACTULOSE 20 GM/30 ML UDC (FOR ORAL USE ONLY) PO SCH (10:30)
[2023-07-22 12:49] VITALS: BP 150/89; PULSE 83; TEMP 97.7
[2023-07-23] MEDS ORDERED: LORazepam 0.5 MG TABLET PO ONE (05:00)
== END 2023-07-22 12:45 | disposition other institution (70) | DRG 774 ==
LOC: YASAS 12:49 → Y3N 16:04
PROVIDERS: ADMIT Allergy & Immunology; ATTEND Surgery
PROC: HZ2ZZZZ Detoxification Services for Substance Abuse Treatment (ICD-10-PCS; principal; 2023-07-19)
DX: F10.230 Alcohol dependence with withdrawal, uncomplicated (principal); F14.20 Cocaine dependence, uncomplicated; F31.9 Bipolar disorder, unspecified; F20.9 Schizophrenia, unspecified; Z21 Asymptomatic human immunodeficiency virus [HIV] infection status; E72.20 Disorder of urea cycle metabolism, unspecified; E78.5 Hyperlipidemia, unspecified; I10 Essential (primary) hypertension; J45.20 Mild intermittent asthma, uncomplicated; K70.30 Alcoholic cirrhosis of liver without ascites; N40.0 Benign prostatic hyperplasia without lower urinary tract symptoms; Z96.0 Presence of urogenital implants; Z86.19 Personal history of other infectious and parasitic diseases; Z88.8 Allergy status to other drugs, medicaments and biological substances
CPT/HCPCS: 36415; 80053; 80307; 82140; 85027; 86780; 87635; 87811

== ENCOUNTER 2023-07-25 14:07 | Emergency (ER) | payer OTHER ==
[2023-07-25 14:22] VITALS: BP 139/85; PULSE 86; RESP 20; TEMP 97.8; BMI 21.1
[2023-07-25 17:51] LABS: EPI CELLS 11 /uL (0-25.1); HYALINE CASTS 1 /uL (0-3.1); PH,URINE 6.5 (5.0-8.0); URINE APPEARANCE CLOUDY; URINE BACTERIA 2840 /uL (0-1359); URINE BILIRUBIN NEGATIVE (NEGATIVE); URINE COLOR YELLOW; URINE GLUCOSE (UA) NEGATIVE (NEGATIVE); URINE KETONE NEGATIVE (NEGATIVE); URINE LEUK ESTERASE 3+ (NEGATIVE); URINE NITRITE NEGATIVE (NEGATIVE); URINE PROTEIN 2+ (NEGATIVE); URINE RBC 238 /uL (0-23.9); URINE UROBILINOGEN 0.2 mg/dL (0.2-1.0); URINE WBC 2838 /uL (0-25.8)
== END 2023-07-25 16:45 | disposition home or self-care (01) ==
LOC: JER 14:07
DX: Z46.6 Encounter for fitting and adjustment of urinary device (principal)
CPT/HCPCS: 81003; 87086; 87186; 99283-25

== ENCOUNTER 2023-10-01 14:39 | Inpatient (IN) | payer OTHER ==
[2023-10-01 14:55] VITALS: BMI 21.9
[2023-10-01] MEDS ORDERED: ALBUTEROL SO4 HFA INHALER IH PRN (16:47)
[2023-10-01] MEDS ORDERED: POLYETHYLENE GLYCOL (HEALTHYLAX) 3350 17 GM PACKET PO PRN (16:51)
[2023-10-01] MEDS ORDERED: hydrOXYzine PAMOATE 25 MG CAPSULE (FP) PO PRN (16:51)
[2023-10-01] MEDS ORDERED: P-EPHED 60MG/TRIPROLIDI 2.5MG TABLET PO PRN (16:51)
[2023-10-01] MEDS ORDERED: LOPERAMIDE HCL 2 MG CAPSULE PO PRN (16:51)
[2023-10-01] MEDS ORDERED: ONDANSETRON *ODT* 4 MG TABLET SL PRN (16:51)
[2023-10-01] MEDS ORDERED: IBUPROFEN 400 MG TABLET (FP) PO PRN (16:51)
[2023-10-01] MEDS ORDERED: MAGNESIUM HYDROX 2400MG/30ML ORAL SUSPENSION 30 ML CUP PO PRN (16:51)
[2023-10-01] MEDS ORDERED: guaiFENesin 600 MG TABLET.ER (FP) PO PRN (16:51)
[2023-10-01] MEDS ORDERED: DOCUSATE SODIUM 100 MG CAPSULE (FP) PO PRN (16:51)
[2023-10-01] MEDS ORDERED: ACETAMINOPHEN 325 MG TABLET (FP) PO PRN (16:51)
[2023-10-01] MEDS ORDERED: IBUPROFEN 600 MG TABLET (FP) PO PRN (16:51)
[2023-10-01] MEDS ORDERED: BENZOCAINE/MENTHOL (CHLORASEPTIC ) LOZENGE MM PRN (16:51)
[2023-10-01] MEDS ORDERED: BENZONATATE 200 MG CAPSULE PO PRN (16:51)
[2023-10-01] MEDS ORDERED: BISMUTH SUBSALICYLATE 524 MG/30 ML PO PRN (16:51)
[2023-10-01] MEDS ORDERED: DICYCLOMINE HCL 10 MG CAPSULE PO PRN (16:51)
[2023-10-01] MEDS ORDERED: MAG HYDROX/AL HYDROX/SIMETH 30 ML UNIT-DOSE CUP PO PRN (16:51)
[2023-10-01] MEDS: MELATONIN 5 MG TABLETS PO SCH (23:20)
[2023-10-01] MEDS: TAMSULOSIN HCL 0.4 MG CAP PO SCH (23:20)
[2023-10-01] MEDS: THIAMINE HCL 100 MG TABLET (FP) PO SCH (23:21)
[2023-10-01] MEDS: valACYclovir HCL 500 MG TABLET (FP) PO SCH (23:21)
[2023-10-02] MEDS: amLODIPine BESYLATE 10 MG TABLET (FP) PO SCH (10:37)
[2023-10-02] MEDS: valACYclovir HCL 500 MG TABLET (FP) PO SCH ×2 (10:37→22:45)
[2023-10-02] MEDS: PRENATAL VITAMINS W/ FOLIC ACID TABLET (FP) PO SCH (10:37)
[2023-10-02] MEDS: ASPIRIN COATED 81 MG TABLET.EC PO SCH (10:37)
[2023-10-02] MEDS ORDERED: diazePAM 5 MG TABLET PO SCH (17:00)
[2023-10-02] MEDS: LORazepam 2 MG TABLET PO SCH ×2 (17:14→22:13)
[2023-10-02] MEDS: MELATONIN 5 MG TABLETS PO SCH (22:45)
[2023-10-02] MEDS: TAMSULOSIN HCL 0.4 MG CAP PO SCH (22:45)
[2023-10-02] MEDS: THIAMINE HCL 100 MG TABLET (FP) PO SCH (22:45)
[2023-10-03] MEDS: LORazepam 1 MG TABLET PO SCH ×5 (05:15→22:31)
[2023-10-03] MEDS ORDERED: diazePAM 5 MG TABLET PO SCH (06:00)
[2023-10-03] MEDS: PRENATAL VITAMINS W/ FOLIC ACID TABLET (FP) PO SCH (10:37)
[2023-10-03] MEDS: valACYclovir HCL 500 MG TABLET (FP) PO SCH ×2 (10:38→22:30)
[2023-10-03] MEDS: amLODIPine BESYLATE 10 MG TABLET (FP) PO SCH (10:38)
[2023-10-03] MEDS: ASPIRIN COATED 81 MG TABLET.EC PO SCH (10:38)
[2023-10-03] MEDS: THIAMINE HCL 100 MG TABLET (FP) PO SCH (22:30)
[2023-10-03] MEDS: TAMSULOSIN HCL 0.4 MG CAP PO SCH (22:30)
[2023-10-03] MEDS: MELATONIN 5 MG TABLETS PO SCH (22:30)
[2023-10-04] MEDS: LORazepam 0.5 MG TABLET PO SCH ×2 (05:58→10:22)
[2023-10-04] MEDS ORDERED: diazePAM 5 MG TABLET PO SCH (06:00)
[2023-10-04 09:28] VITALS: TEMP 97.8
[2023-10-04] MEDS: PRENATAL VITAMINS W/ FOLIC ACID TABLET (FP) PO SCH (10:21)
[2023-10-04] MEDS: amLODIPine BESYLATE 10 MG TABLET (FP) PO SCH (10:21)
[2023-10-04] MEDS: ASPIRIN COATED 81 MG TABLET.EC PO SCH (10:21)
[2023-10-04] MEDS: valACYclovir HCL 500 MG TABLET (FP) PO SCH (10:21)
[2023-10-04 10:59] LABS: HEMATOCRIT 37.1 % (35.4-49); HEMOGLOBIN 12.4 GM/dL (11.7-16.9); MCH 30.1 pg (25.7-33.7); MCHC 33.3 g/dl (32.0-35.9); MEAN CELL VOLUME 90.3 fl (80-96); MEAN PLT VOLUME 8.9 fl (7.5-11.1); PLATELET COUNT 230 10^3/uL (134-434); RBC 4.11 M/mm3 (4.00-5.60); RDW 14.1 % (11.9-15.9); WHITE BLOOD COUNT 6.7 K/mm3 (4.0-10.0)
[2023-10-04 11:04] LABS: POTASSIUM 3.7 mmol/L (3.5-5.1)
[2023-10-04 11:11] LABS: ALBUMIN 2.7 g/dl (3.4-5.0); BLOOD UREA NITROGEN 21.3 mg/dL (7-18)
[2023-10-04 11:12] LABS: TOT PROT 6.5 g/dl (6.4-8.2)
[2023-10-04 11:14] LABS: CREATININE 0.8 mg/dL (0.55-1.3)
[2023-10-04 11:17] LABS: BILIRUBIN,TOTAL 0.2 mg/dL (0.2-1)
[2023-10-04 13:01] VITALS: BP 135/72; PULSE 93; RESP 18
[2023-10-05] MEDS ORDERED: LORazepam 0.5 MG TABLET PO ONE (05:00)
[2023-10-05] MEDS ORDERED: diazePAM 5 MG TABLET PO ONE (06:00)
== END 2023-10-04 13:42 | disposition home or self-care (01) | DRG 774 ==
LOC: YASAS 14:39 → Y6N 18:08
PROVIDERS: ADMIT Allergy & Immunology; ATTEND Allergy & Immunology
PROC: HZ2ZZZZ Detoxification Services for Substance Abuse Treatment (ICD-10-PCS; principal; 2023-10-01)
DX: F10.230 Alcohol dependence with withdrawal, uncomplicated (principal); F14.20 Cocaine dependence, uncomplicated; F17.210 Nicotine dependence, cigarettes, uncomplicated; Z21 Asymptomatic human immunodeficiency virus [HIV] infection status; I10 Essential (primary) hypertension; J45.20 Mild intermittent asthma, uncomplicated; K70.30 Alcoholic cirrhosis of liver without ascites; N40.0 Benign prostatic hyperplasia without lower urinary tract symptoms; B18.2 Chronic viral hepatitis C; R63.4 Abnormal weight loss; Z68.21 Body mass index [BMI] 21.0-21.9, adult; Z88.8 Allergy status to other drugs, medicaments and biological substances
CPT/HCPCS: 0241U-QW; 36415; 80053; 85027; 86780; Q0162

== ENCOUNTER 2023-11-12 13:41 | Inpatient (IN) | payer OTHER ==
[2023-11-12 15:38] VITALS: BMI 22.7
[2023-11-12] MEDS ORDERED: BENZOCAINE/MENTHOL (CHLORASEPTIC ) LOZENGE MM PRN (16:52)
[2023-11-12] MEDS ORDERED: LORazepam 1 MG TABLET PO PRN (16:52)
[2023-11-12] MEDS ORDERED: MAGNESIUM HYDROX 2400MG/30ML ORAL SUSPENSION 30 ML CUP PO PRN (16:52)
[2023-11-12] MEDS ORDERED: IBUPROFEN 400 MG TABLET (FP) PO PRN (16:52)
[2023-11-12] MEDS ORDERED: NALOXONE HCL 0.4 MG/ML VIAL IM PRN (16:52)
[2023-11-12] MEDS ORDERED: BISMUTH SUBSALICYLATE 524 MG/30 ML PO PRN (16:52)
[2023-11-12] MEDS ORDERED: NALOXONE HCL (KLOXXADO) 8 MG SPRAY NS PRN (16:52)
[2023-11-12] MEDS ORDERED: DICYCLOMINE HCL 10 MG CAPSULE PO PRN (16:52)
[2023-11-12] MEDS ORDERED: LOPERAMIDE HCL 2 MG CAPSULE PO PRN (16:52)
[2023-11-12] MEDS ORDERED: POLYETHYLENE GLYCOL (HEALTHYLAX) 3350 17 GM PACKET PO PRN (16:52)
[2023-11-12] MEDS ORDERED: guaiFENesin 600 MG TABLET.ER (FP) PO PRN (16:52)
[2023-11-12] MEDS ORDERED: BENZONATATE 200 MG CAPSULE PO PRN (16:52)
[2023-11-12] MEDS ORDERED: NICOTINE POLACRILEX 2 MG GUM BUC PRN (16:52)
[2023-11-12] MEDS: hydrOXYzine PAMOATE 25 MG CAPSULE (FP) PO PRN (19:00)
[2023-11-12] MEDS: METHOCARBAMOL 500 MG TABLET PO PRN (19:00)
[2023-11-12] MEDS: IBUPROFEN 600 MG TABLET (FP) PO PRN (19:01)
[2023-11-12] MEDS: traZODone HCL 50 MG TABLET (FP) PO PRN (22:33)
[2023-11-12] MEDS: THIAMINE HCL 100 MG TABLET (FP) PO SCH (22:33)
[2023-11-12] MEDS: MELATONIN 5 MG TABLETS PO SCH (22:33)
[2023-11-12] MEDS: LORazepam 2 MG TABLET PO SCH (22:34)
[2023-11-12] MEDS: BACITRACIN 0.9 GM PACKET TP SCH (22:35)
[2023-11-13] MEDS: amLODIPine BESYLATE 10 MG TABLET (FP) PO SCH (10:14)
[2023-11-13] MEDS: ASPIRIN 81 MG CHEWABLE TABLETS PO SCH (10:14)
[2023-11-13] MEDS: TAMSULOSIN HCL 0.4 MG CAP PO SCH (10:14)
[2023-11-13] MEDS: PRENATAL VITAMINS W/ FOLIC ACID TABLET (FP) PO SCH (10:14)
[2023-11-13] MEDS: FLU VACCINE (FLULAVAL) PF 60 MCG/0.5 ML SYRINGE 2023-2024 IM ONE (12:44)
[2023-11-14] MEDS: LORazepam 1 MG TABLET PO SCH (07:17)
[2023-11-14] MEDS: MAG HYDROX/AL HYDROX/SIMETH 30 ML UNIT-DOSE CUP PO PRN (20:26)
[2023-11-14] MEDS: ONDANSETRON *ODT* 4 MG TABLET SL PRN (20:27)
[2023-11-15] MEDS ORDERED: LORazepam 0.5 MG TABLET PO PRN
[2023-11-15] MEDS: LORazepam 0.5 MG TABLET PO SCH (05:18)
[2023-11-15] MEDS: valACYclovir HCL 500 MG TABLET (FP) PO SCH (22:09)
[2023-11-16] MEDS: LORazepam 0.5 MG TABLET PO ONE (05:57)
[2023-11-16 08:48] VITALS: BP 126/73; PULSE 64; RESP 18; TEMP 98.1
[2023-11-16] MEDS: ALBUTEROL SO4 HFA INHALER IH PRN (09:41)
== END 2023-11-16 09:42 | disposition home or self-care (01) | DRG 774 ==
LOC: YASAS 13:41 → Y3N 18:33
PROVIDERS: ADMIT Allergy & Immunology; ATTEND Allergy & Immunology
PROC: HZ2ZZZZ Detoxification Services for Substance Abuse Treatment (ICD-10-PCS; principal; 2023-11-12)
DX: F10.230 Alcohol dependence with withdrawal, uncomplicated (principal); F14.20 Cocaine dependence, uncomplicated; F17.210 Nicotine dependence, cigarettes, uncomplicated; F31.9 Bipolar disorder, unspecified; F20.9 Schizophrenia, unspecified; Z21 Asymptomatic human immunodeficiency virus [HIV] infection status; E78.5 Hyperlipidemia, unspecified; I10 Essential (primary) hypertension; J45.20 Mild intermittent asthma, uncomplicated; K70.30 Alcoholic cirrhosis of liver without ascites; N40.0 Benign prostatic hyperplasia without lower urinary tract symptoms; Z86.19 Personal history of other infectious and parasitic diseases; Z88.8 Allergy status to other drugs, medicaments and biological substances
CPT/HCPCS: 80305; 87635; 87811; Q0162

== ENCOUNTER 2024-02-08 14:12 | Inpatient (IN) | payer OTHER ==
[2024-02-08] MEDS ORDERED: IBUPROFEN 400 MG TABLET (FP) PO PRN (17:55)
[2024-02-08] MEDS ORDERED: BENZONATATE 200 MG CAPSULE PO PRN (17:55)
[2024-02-08] MEDS ORDERED: MAGNESIUM HYDROX 2400MG/30ML ORAL SUSPENSION 30 ML CUP PO PRN (17:55)
[2024-02-08] MEDS ORDERED: NICOTINE POLACRILEX 2 MG LOZENGE BC PRN (17:55)
[2024-02-08] MEDS ORDERED: guaiFENesin 600 MG TABLET.ER (FP) PO PRN (17:55)
[2024-02-08] MEDS ORDERED: ACETAMINOPHEN 325 MG TABLET (FP) PO PRN (17:55)
[2024-02-08] MEDS ORDERED: LOPERAMIDE HCL 2 MG CAPSULE PO PRN (17:55)
[2024-02-08] MEDS ORDERED: P-EPHED 60MG/TRIPROLIDI 2.5MG TABLET PO PRN (17:55)
[2024-02-08] MEDS ORDERED: NICOTINE POLACRILEX 2 MG GUM BUC PRN (17:55)
[2024-02-08] MEDS ORDERED: MAG HYDROX/AL HYDROX/SIMETH 30 ML UNIT-DOSE CUP PO PRN (17:55)
[2024-02-08] MEDS ORDERED: POLYETHYLENE GLYCOL (HEALTHYLAX) 3350 17 GM PACKET PO PRN (17:55)
[2024-02-08] MEDS ORDERED: BENZOCAINE/MENTHOL (CHLORASEPTIC ) LOZENGE MM PRN (17:55)
[2024-02-08] MEDS: THIAMINE 100 MG TABLET PO SCH (22:37)
[2024-02-08] MEDS: MELATONIN 5 MG TABLETS PO SCH (22:37)
[2024-02-09] MEDS ORDERED: ALBUTEROL SO4 HFA INHALER IH PRN (07:33)
[2024-02-09] MEDS: ELVITEG/COB/EMTRI/TENOF (GENVOYA) TABLET PO SCH (15:14)
[2024-02-09] MEDS: TAMSULOSIN HCL 0.4 MG CAP PO SCH (15:15)
[2024-02-09] MEDS: PRENATAL VITAMINS W/ FOLIC ACID TABLET (FP) PO SCH (15:16)
[2024-02-09] MEDS: valACYclovir HCL 500 MG TABLET (FP) PO SCH (15:16)
[2024-02-09] MEDS: ASPIRIN 81 MG CHEWABLE TABLETS PO SCH (15:58)
[2024-02-09] MEDS: amLODIPine BESYLATE 10 MG TABLET (FP) PO SCH (15:58)
[2024-02-09] MEDS: traZODone HCL 50 MG TABLET (FP) PO SCH (22:01)
[2024-02-10] MEDS: hydrOXYzine PAMOATE 25 MG CAPSULE (FP) PO PRN (07:23)
[2024-02-10] MEDS: ASPIRIN 81 MG CHEWABLE TABLETS PO SCH (10:22)
[2024-02-10] MEDS: amLODIPine BESYLATE 10 MG TABLET (FP) PO SCH (10:23)
[2024-02-10 11:59] LABS: BASO % 0.7 % (0-2.0); EOS % 1.8 % (0-4.5); HEMATOCRIT 37.8 % (35.4-49); HEMOGLOBIN 12.5 GM/dL (11.7-16.9); LYMPH % 31.1 % (8-40); MCH 29.9 pg (25.7-33.7); MCHC 33.2 g/dl (32.0-35.9); MEAN CELL VOLUME 90.2 fl (80-96); MEAN PLT VOLUME 8.4 fl (7.5-11.1); MONO % 9.4 % (3.8-10.2); PLATELET COUNT 255 10^3/uL (134-434); RBC 4.19 M/mm3 (4.00-5.60); RDW 14.6 % (11.9-15.9); WHITE BLOOD COUNT 5.7 K/mm3 (4.0-10.0)
[2024-02-10 12:02] LABS: POTASSIUM 4.3 mmol/L (3.5-5.1)
[2024-02-10 12:05] LABS: CALCIUM 8.2 mg/dL (8.5-10.1)
[2024-02-10 12:06] LABS: ALBUMIN 2.6 g/dl (3.4-5.0); BLOOD UREA NITROGEN 23.6 mg/dL (7-18)
[2024-02-10 12:09] LABS: CREATININE 0.8 mg/dL (0.55-1.3)
[2024-02-10 12:11] LABS: BILIRUBIN,TOTAL 0.4 mg/dL (0.2-1)
[2024-02-10 16:31] LABS: SYPHILIS W/ RPR CONF NON-REACTIVE (NONREACTIVE)
[2024-02-12 11:05] LABS: EPI CELLS 5 /uL (0-25.1); HYALINE CASTS 2 /uL (0-3.1); PH,URINE 5.5 (5.0-8.0); URINE APPEARANCE CLEAR; URINE BACTERIA 48 /uL (0-1359); URINE BILIRUBIN NEGATIVE (NEGATIVE); URINE COLOR YELLOW; URINE GLUCOSE (UA) NEGATIVE (NEGATIVE); URINE KETONE NEGATIVE (NEGATIVE); URINE LEUK ESTERASE TRACE (NEGATIVE); URINE NITRITE NEGATIVE (NEGATIVE); URINE PROTEIN NEGATIVE (NEGATIVE); URINE RBC 34 /uL (0-23.9); URINE UROBILINOGEN 0.2 mg/dL (0.2-1.0); URINE WBC 32 /uL (0-25.8)
[2024-02-23] MEDS: TAMSULOSIN HCL 0.4 MG CAP PO SCH (07:00)
[2024-02-27] MEDS: IBUPROFEN 600 MG TABLET (FP) PO PRN (03:55)
[2024-02-27] MEDS: BENZOCAINE 20 % GEL TUBE MM PRN (11:53)
[2024-02-27] MEDS: valACYclovir HCL 500 MG TABLET (FP) PO SCH (13:36)
[2024-03-05 06:37] VITALS: TEMP 97.7
[2024-03-05 08:59] VITALS: BP 139/82; PULSE 92; RESP 18
== END 2024-03-05 14:50 | disposition home or self-care (01) | DRG 772 ==
LOC: YASAS 14:12 → Y3NR 19:15 → Y3W 22:01
PROVIDERS: ADMIT Allergy & Immunology; ATTEND Psychiatry & Neurology Pain Medicine
PROC: HZ42ZZZ Group Counseling for Substance Abuse Treatment, Cognitive-Behavioral (ICD-10-PCS; principal; 2024-02-08)
DX: F14.20 Cocaine dependence, uncomplicated (principal); F10.20 Alcohol dependence, uncomplicated; F17.210 Nicotine dependence, cigarettes, uncomplicated; F31.9 Bipolar disorder, unspecified; F25.9 Schizoaffective disorder, unspecified; F41.9 Anxiety disorder, unspecified; Z21 Asymptomatic human immunodeficiency virus [HIV] infection status; I10 Essential (primary) hypertension; J45.20 Mild intermittent asthma, uncomplicated; K74.60 Unspecified cirrhosis of liver; K14.0 Glossitis; A60.1 Herpesviral infection of perianal skin and rectum; N40.0 Benign prostatic hyperplasia without lower urinary tract symptoms; Z86.19 Personal history of other infectious and parasitic diseases; Z79.899 Other long term (current) drug therapy; Z96.0 Presence of urogenital implants; Z88.8 Allergy status to other drugs, medicaments and biological substances
CPT/HCPCS: 36415; 73110-TC-RT-FY; 73130-TC-RT-FY; 80053; 80305; 80307; 81003; 82140; 85025; 86780; 86803; 87522; 87811

== ENCOUNTER 2024-02-09 07:56 | Emergency (ER) | payer OTHER ==
[2024-02-09 08:06] VITALS: BP 133/78; PULSE 74; RESP 17; TEMP 97.9; BMI 25.8
[2024-02-09 09:07] LABS: URINE APPEARANCE CLEAR; URINE BILIRUBIN NEGATIVE (NEGATIVE); URINE COLOR YELLOW; URINE GLUCOSE (UA) NEGATIVE (NEGATIVE); URINE KETONE NEGATIVE (NEGATIVE); URINE LEUK ESTERASE NEGATIVE (NEGATIVE); URINE NITRITE NEGATIVE (NEGATIVE); URINE PROTEIN TRACE (NEGATIVE); URINE UROBILINOGEN 0.2 mg/dL (0.2-1.0)
== END 2024-02-09 12:24 | disposition short-term general hospital (02) ==
LOC: JER 07:56
PROC: 0T9B70Z Drainage of Bladder with Drainage Device, Via Natural or Artificial Opening (ICD-10-PCS; principal; 2024-02-09)
DX: N40.1 Benign prostatic hyperplasia with lower urinary tract symptoms (principal); R33.8 Other retention of urine
CPT/HCPCS: 73130-TC-RT-FY; 81003; 87086; 99284-25

== ENCOUNTER 2024-04-13 10:06 | Inpatient (IN) | payer OTHER ==
[2024-04-13 10:57] VITALS: BMI 22.2
[2024-04-13] MEDS ORDERED: ALBUTEROL SO4 HFA INHALER IH PRN (11:55)
[2024-04-13] MEDS ORDERED: IBUPROFEN 400 MG TABLET (FP) PO PRN (12:14)
[2024-04-13] MEDS ORDERED: IBUPROFEN 600 MG TABLET (FP) PO PRN (12:14)
[2024-04-13] MEDS ORDERED: MAG HYDROX/AL HYDROX/SIMETH 30 ML UNIT-DOSE CUP PO PRN (12:14)
[2024-04-13] MEDS ORDERED: LOPERAMIDE HCL 2 MG CAPSULE PO PRN (12:14)
[2024-04-13] MEDS ORDERED: BENZONATATE 200 MG CAPSULE PO PRN (12:14)
[2024-04-13] MEDS ORDERED: ACETAMINOPHEN 325 MG TABLET (FP) PO PRN (12:14)
[2024-04-13] MEDS ORDERED: NICOTINE POLACRILEX 2 MG LOZENGE BC PRN (12:14)
[2024-04-13] MEDS ORDERED: POLYETHYLENE GLYCOL (HEALTHYLAX) 3350 17 GM PACKET PO PRN (12:14)
[2024-04-13] MEDS ORDERED: BENZOCAINE/MENTHOL (CHLORASEPTIC ) LOZENGE MM PRN (12:14)
[2024-04-13] MEDS ORDERED: NICOTINE POLACRILEX 2 MG GUM BUC PRN (12:14)
[2024-04-13] MEDS ORDERED: guaiFENesin 600 MG TABLET.ER (FP) PO PRN (12:14)
[2024-04-13] MEDS ORDERED: MAGNESIUM HYDROX 2400MG/30ML ORAL SUSPENSION 30 ML CUP PO PRN (12:14)
[2024-04-13] MEDS: ASPIRIN 81 MG CHEWABLE TABLETS PO SCH (13:44)
[2024-04-13] MEDS: TAMSULOSIN HCL 0.4 MG CAP PO SCH (14:28)
[2024-04-13] MEDS: valACYclovir HCL 500 MG TABLET (FP) PO SCH (14:28)
[2024-04-13] MEDS: cloNIDine HCL 0.1 MG TABLET PO ONE (15:43)
[2024-04-13] MEDS: traZODone HCL 50 MG TABLET (FP) PO SCH (21:18)
[2024-04-13] MEDS: THIAMINE 100 MG TABLET PO SCH (21:18)
[2024-04-13] MEDS: MELATONIN 5 MG TABLETS PO SCH (21:18)
[2024-04-13] MEDS ORDERED: QUEtiapine FUMARATE 100 MG TABLET (FP) PO SCH (22:00)
[2024-04-13 23:39] LABS: EPI CELLS 7 /uL (0-25.1); HYALINE CASTS 0 /uL (0-3.1); PH,URINE 6.5 (5.0-8.0); URINE APPEARANCE CLEAR; URINE BACTERIA 4 /uL (0-1359); URINE BILIRUBIN NEGATIVE (NEGATIVE); URINE COLOR YELLOW; URINE GLUCOSE (UA) NEGATIVE (NEGATIVE); URINE KETONE TRACE (NEGATIVE); URINE LEUK ESTERASE TRACE (NEGATIVE); URINE NITRITE NEGATIVE (NEGATIVE); URINE PROTEIN 1+ (NEGATIVE); URINE RBC 4 /uL (0-23.9); URINE WBC 90 /uL (0-25.8)
[2024-04-14 00:27] LABS: URINE CRYSTALS FEW /hpf
[2024-04-14] MEDS: ELVITEG/COB/EMTRI/TENOF (GENVOYA) TABLET PO SCH (07:03)
[2024-04-14] MEDS: PRENATAL VITAMINS W/ FOLIC ACID TABLET (FP) PO SCH (09:11)
[2024-04-14] MEDS: amLODIPine BESYLATE 10 MG TABLET (FP) PO SCH (09:11)
[2024-04-15] MEDS: hydrOXYzine PAMOATE 25 MG CAPSULE (FP) PO PRN (21:28)
[2024-04-16 15:06] VITALS: RESP 18
[2024-04-17 11:20] VITALS: BP 117/85; PULSE 100; TEMP 97.2
== END 2024-04-17 10:50 | disposition home or self-care (01) | DRG 774 ==
LOC: YASAS 10:06 → Y3NR 14:07 → Y5N 04-16 14:30
PROVIDERS: ADMIT Allergy & Immunology; ATTEND Psychiatry & Neurology Pain Medicine
PROC: HZ42ZZZ Group Counseling for Substance Abuse Treatment, Cognitive-Behavioral (ICD-10-PCS; principal; 2024-04-13)
DX: F14.10 Cocaine abuse, uncomplicated (principal); F17.210 Nicotine dependence, cigarettes, uncomplicated; F31.9 Bipolar disorder, unspecified; F25.9 Schizoaffective disorder, unspecified; Z21 Asymptomatic human immunodeficiency virus [HIV] infection status; E78.5 Hyperlipidemia, unspecified; G47.00 Insomnia, unspecified; I10 Essential (primary) hypertension; J45.909 Unspecified asthma, uncomplicated; N40.0 Benign prostatic hyperplasia without lower urinary tract symptoms
CPT/HCPCS: 80305; 80307; 81003; 87811

== ENCOUNTER 2024-04-15 10:02 | Emergency (ER) | payer OTHER ==
[2024-04-15 11:00] VITALS: BP 131/87; PULSE 78; RESP 17; TEMP 97.6; BMI 21.9
[2024-04-15 11:36] LABS: PH,URINE 6.5 (5.0-8.0); URINE APPEARANCE CLEAR; URINE BILIRUBIN NEGATIVE (NEGATIVE); URINE COLOR YELLOW; URINE GLUCOSE (UA) NEGATIVE (NEGATIVE); URINE KETONE NEGATIVE (NEGATIVE); URINE LEUK ESTERASE NEGATIVE (NEGATIVE); URINE NITRITE NEGATIVE (NEGATIVE); URINE PROTEIN NEGATIVE (NEGATIVE); URINE UROBILINOGEN 0.2 mg/dL (0.2-1.0)
== END 2024-04-15 13:00 | disposition home or self-care (01) ==
LOC: JER 10:02
PROC: 0T9B70Z Drainage of Bladder with Drainage Device, Via Natural or Artificial Opening (ICD-10-PCS; principal; 2024-04-15)
DX: R33.9 Retention of urine, unspecified (principal)
CPT/HCPCS: 81003; 87086; 99283-25

== ENCOUNTER 2024-05-21 14:00 | Inpatient (IN) | payer OTHER ==
[2024-05-21 15:00] VITALS: BMI 22.8
[2024-05-21] MEDS ORDERED: BENZONATATE 200 MG CAPSULE PO PRN (16:15)
[2024-05-21] MEDS ORDERED: NALOXONE HCL 0.4 MG/ML VIAL IM PRN (16:15)
[2024-05-21] MEDS ORDERED: NICOTINE POLACRILEX 2 MG LOZENGE BC PRN (16:15)
[2024-05-21] MEDS ORDERED: NICOTINE POLACRILEX 2 MG GUM BUC PRN (16:15)
[2024-05-21] MEDS ORDERED: IBUPROFEN 600 MG TABLET (FP) PO PRN (16:15)
[2024-05-21] MEDS ORDERED: LOPERAMIDE HCL 2 MG CAPSULE PO PRN (16:15)
[2024-05-21] MEDS ORDERED: BENZOCAINE/MENTHOL (CHLORASEPTIC ) LOZENGE MM PRN (16:15)
[2024-05-21] MEDS ORDERED: NALOXONE (NARCAN) HCL 4 MG/0.1 ML SPRAY NS PRN (16:15)
[2024-05-21] MEDS ORDERED: ACETAMINOPHEN 325 MG TABLET (FP) PO PRN (16:15)
[2024-05-21] MEDS ORDERED: IBUPROFEN 400 MG TABLET (FP) PO PRN (16:15)
[2024-05-21] MEDS ORDERED: MAGNESIUM HYDROX 2400MG/30ML ORAL SUSPENSION 30 ML CUP PO PRN (16:15)
[2024-05-21] MEDS ORDERED: guaiFENesin 600 MG TABLET.ER (FP) PO PRN (16:15)
[2024-05-21] MEDS ORDERED: P-EPHED 60MG/TRIPROLIDI 2.5MG TABLET PO PRN (16:15)
[2024-05-21] MEDS ORDERED: POLYETHYLENE GLYCOL (HEALTHYLAX) 3350 17 GM PACKET PO PRN (16:15)
[2024-05-21] MEDS ORDERED: ALBUTEROL SO4 HFA INHALER IH PRN (16:30)
[2024-05-21] MEDS: MELATONIN 5 MG TABLETS PO SCH (21:40)
[2024-05-21] MEDS: hydrOXYzine PAMOATE 25 MG CAPSULE (FP) PO PRN (21:40)
[2024-05-21] MEDS: THIAMINE 100 MG TABLET PO SCH (21:40)
[2024-05-22] MEDS: traZODone HCL 50 MG TABLET (FP) PO ONE ×2 (00:13→00:20)
[2024-05-22] MEDS: TAMSULOSIN HCL 0.4 MG CAP PO SCH (08:32)
[2024-05-22] MEDS: ASPIRIN 81 MG CHEWABLE TABLETS PO SCH (10:05)
[2024-05-22] MEDS: PRENATAL VITAMINS W/ FOLIC ACID TABLET (FP) PO SCH (10:05)
[2024-05-22 12:18] LABS: CHLORIDE 107 mmol/L (98-107); POTASSIUM 4.6 mmol/L (3.5-5.1); SODIUM 137 mmol/L (136-145)
[2024-05-22 12:21] LABS: CALCIUM 8.3 mg/dL (8.5-10.1)
[2024-05-22 12:22] LABS: ALBUMIN 2.8 g/dl (3.4-5.0); ANION GAP 7 mmol/L (4-13); BLOOD UREA NITROGEN 28.3 mg/dL (7-18); CO2 23 mmol/L (21-32); GLUCOSE,RANDOM 108 mg/dL (74-106)
[2024-05-22 12:25] LABS: SGOT/AST 26 U/L (15-37); SGPT/ALT 35 U/L (13-61)
[2024-05-22 12:27] LABS: BILIRUBIN,TOTAL 0.3 mg/dL (0.2-1); TOT PROT 6.3 g/dl (6.4-8.2)
[2024-05-22 12:28] LABS: ALK PHOS 103 U/L (45-117); HEMATOCRIT 35.4 % (35.4-49); HEMOGLOBIN 12.1 GM/dL (11.7-16.9); MCH 31.6 pg (25.7-33.7); MCHC 34.1 g/dl (32.0-35.9); MEAN CELL VOLUME 92.6 fl (80-96); MEAN PLT VOLUME 8.4 fl (7.5-11.1); PLATELET COUNT 250 10^3/uL (134-434); RBC 3.82 M/mm3 (4.00-5.60); RDW 14.4 % (11.9-15.9); WHITE BLOOD COUNT 6.6 K/mm3 (4.0-10.0)
[2024-05-22] MEDS: ELVITEG/COB/EMTRI/TENOF (GENVOYA) TABLET PO SCH (13:51)
[2024-05-23 11:18] LABS: PH,URINE 5.5 (5.0-8.0); URINE APPEARANCE CLEAR; URINE BILIRUBIN NEGATIVE (NEGATIVE); URINE COLOR YELLOW; URINE GLUCOSE (UA) NEGATIVE (NEGATIVE); URINE KETONE NEGATIVE (NEGATIVE); URINE LEUK ESTERASE NEGATIVE (NEGATIVE); URINE NITRITE NEGATIVE (NEGATIVE); URINE PROTEIN NEGATIVE (NEGATIVE); URINE UROBILINOGEN 0.2 mg/dL (0.2-1.0)
[2024-05-23] MEDS: traZODone HCL 50 MG TABLET (FP) PO SCH (21:36)
[2024-05-23] MEDS: ATORVASTATIN CA 10 MG TABLET (FP) PO SCH (21:36)
[2024-05-24] MEDS: amLODIPine BESYLATE 10 MG TABLET (FP) PO SCH (10:12)
[2024-05-24] MEDS: FOLIC ACID 1 MG TABLET (FP) PO SCH (10:13)
[2024-05-24] MEDS: MAG HYDROX/AL HYDROX/SIMETH 30 ML UNIT-DOSE CUP PO PRN (21:25)
[2024-05-25] MEDS: valACYclovir HCL 500 MG TABLET (FP) PO SCH (21:26)
[2024-05-26] MEDS: BENZOCAINE 20 % GEL TUBE MM PRN (11:45)
[2024-05-27 07:12] VITALS: TEMP 97.5
[2024-05-27 10:16] VITALS: BP 131/80; PULSE 81; RESP 16
== END 2024-05-27 11:36 | disposition home or self-care (01) | DRG 772 ==
LOC: YASAS 14:00 → Y3NR 17:32 → Y3E 05-23 09:53
PROVIDERS: ADMIT Psychiatry & Neurology Pain Medicine; ATTEND Psychiatry & Neurology Pain Medicine
PROC: HZ42ZZZ Group Counseling for Substance Abuse Treatment, Cognitive-Behavioral (ICD-10-PCS; principal; 2024-05-21)
DX: F10.20 Alcohol dependence, uncomplicated (principal); F14.20 Cocaine dependence, uncomplicated; F17.210 Nicotine dependence, cigarettes, uncomplicated; F19.282 Other psychoactive substance dependence with psychoactive substance-induced sleep disorder; F25.9 Schizoaffective disorder, unspecified; Z21 Asymptomatic human immunodeficiency virus [HIV] infection status; B00.1 Herpesviral vesicular dermatitis; D64.9 Anemia, unspecified; I10 Essential (primary) hypertension; J45.909 Unspecified asthma, uncomplicated; N40.0 Benign prostatic hyperplasia without lower urinary tract symptoms; Z86.19 Personal history of other infectious and parasitic diseases; Z59.02 Unsheltered homelessness
CPT/HCPCS: 36415; 80053; 80305; 80307; 81003; 85027; 86780; 87811; 93005; 93010

== ENCOUNTER 2024-07-02 11:55 | Inpatient (IN) | payer OTHER ==
[2024-07-02 13:14] VITALS: BMI 22.8
[2024-07-02] MEDS ORDERED: IBUPROFEN 400 MG TABLET (FP) PO PRN (15:47)
[2024-07-02] MEDS ORDERED: BENZONATATE 200 MG CAPSULE PO PRN (15:47)
[2024-07-02] MEDS ORDERED: BENZOCAINE/MENTHOL (CHLORASEPTIC ) LOZENGE MM PRN (15:47)
[2024-07-02] MEDS ORDERED: guaiFENesin 600 MG TABLET.ER (FP) PO PRN (15:47)
[2024-07-02] MEDS ORDERED: hydrOXYzine PAMOATE 25 MG CAPSULE (FP) PO PRN (15:47)
[2024-07-02] MEDS ORDERED: NALOXONE (NYS OPIOID OVERDOSE PROGRAM) 4 MG/0.1 ML SPRAY NS PRN (15:47)
[2024-07-02] MEDS ORDERED: POLYETHYLENE GLYCOL (HEALTHYLAX) 3350 17 GM PACKET PO PRN (15:47)
[2024-07-02] MEDS ORDERED: LOPERAMIDE HCL 2 MG CAPSULE PO PRN (15:47)
[2024-07-02] MEDS ORDERED: NALOXONE (NARCAN) HCL 4 MG/0.1 ML SPRAY NS PRN (15:47)
[2024-07-02] MEDS ORDERED: MAG HYDROX/AL HYDROX/SIMETH 30 ML UNIT-DOSE CUP PO PRN (15:47)
[2024-07-02] MEDS ORDERED: ACETAMINOPHEN 325 MG TABLET (FP) PO PRN (15:47)
[2024-07-02] MEDS ORDERED: MAGNESIUM HYDROX 2400MG/30ML ORAL SUSPENSION 30 ML CUP PO PRN (15:47)
[2024-07-02] MEDS ORDERED: IBUPROFEN 600 MG TABLET (FP) PO PRN (15:47)
[2024-07-02] MEDS ORDERED: ALBUTEROL SO4 HFA INHALER IH PRN (15:49)
[2024-07-02] MEDS: PRENATAL VITAMINS W/ FOLIC ACID TABLET (FP) PO SCH (16:40)
[2024-07-02] MEDS: DOXYCYCLINE HYCLATE 100 MG TABLET PO SCH (18:17)
[2024-07-02] MEDS: THIAMINE 100 MG TABLET PO SCH (21:55)
[2024-07-02] MEDS: MELATONIN 5 MG TABLETS PO SCH (21:55)
[2024-07-02] MEDS: valACYclovir HCL 500 MG TABLET (FP) PO SCH (21:55)
[2024-07-03] MEDS: TAMSULOSIN HCL 0.4 MG CAP PO SCH (07:52)
[2024-07-03] MEDS: ELVITEG/COB/EMTRI/TENOF (GENVOYA) TABLET PO SCH (07:52)
[2024-07-03] MEDS: ATORVASTATIN CA 10 MG TABLET (FP) PO SCH (10:07)
[2024-07-03] MEDS: amLODIPine BESYLATE 10 MG TABLET (FP) PO SCH (10:08)
[2024-07-03] MEDS: ASPIRIN 81 MG CHEWABLE TABLETS PO SCH (10:08)
[2024-07-03] MEDS: NICOTINE 14 MG/24 HOURS TOPICAL PATCH TD SCH (10:08)
[2024-07-03] MEDS: FINASTERIDE 5 MG TABLET (FP) PO SCH (12:15)
[2024-07-04 11:56] LABS: PH,URINE 5.5 (5.0-8.0); URINE APPEARANCE CLEAR; URINE BILIRUBIN NEGATIVE (NEGATIVE); URINE COLOR YELLOW; URINE GLUCOSE (UA) NEGATIVE (NEGATIVE); URINE KETONE NEGATIVE (NEGATIVE); URINE LEUK ESTERASE NEGATIVE (NEGATIVE); URINE NITRITE NEGATIVE (NEGATIVE); URINE PROTEIN NEGATIVE (NEGATIVE); URINE UROBILINOGEN 0.2 mg/dL (0.2-1.0)
[2024-07-04 11:57] LABS: MCH 30.1 pg (25.7-33.7); MCHC 33.4 g/dl (32.0-35.9); PLATELET COUNT 287 10^3/uL (134-434); RBC 4.33 M/mm3 (4.00-5.60); RDW 13.7 % (11.9-15.9); WHITE BLOOD COUNT 5.2 K/mm3 (4.0-10.0)
[2024-07-04 12:31] LABS: SYPHILIS W/ RPR CONF NON-REACTIVE (NONREACTIVE)
[2024-07-04 13:56] LABS: POTASSIUM 4.3 mmol/L (3.5-5.1)
[2024-07-04 13:58] LABS: CALCIUM 8.7 mg/dL (8.5-10.1)
[2024-07-04 13:59] LABS: ALBUMIN 3.1 g/dl (3.4-5.0)
[2024-07-04 14:02] LABS: BLOOD UREA NITROGEN 18.8 mg/dL (7-18)
[2024-07-04 14:03] LABS: BILIRUBIN,TOTAL 0.2 mg/dL (0.2-1)
[2024-07-04] MEDS: cloNIDine HCL 0.1 MG TABLET PO SCH (15:09)
[2024-07-05 07:02] VITALS: TEMP 97.2
[2024-07-06 12:08] VITALS: BP 117/66; PULSE 84; RESP 18
== END 2024-07-06 10:03 | disposition left against medical advice (07) | DRG 772 ==
LOC: YASAS 11:55 → Y5N 16:03
PROVIDERS: ADMIT Psychiatry & Neurology Pain Medicine; ATTEND Psychiatry & Neurology Pain Medicine
PROC: HZ42ZZZ Group Counseling for Substance Abuse Treatment, Cognitive-Behavioral (ICD-10-PCS; principal; 2024-07-02)
DX: F10.20 Alcohol dependence, uncomplicated (principal); F14.20 Cocaine dependence, uncomplicated; F17.210 Nicotine dependence, cigarettes, uncomplicated; F31.9 Bipolar disorder, unspecified; F20.9 Schizophrenia, unspecified; F41.9 Anxiety disorder, unspecified; Z21 Asymptomatic human immunodeficiency virus [HIV] infection status; A60.00 Herpesviral infection of urogenital system, unspecified; D64.9 Anemia, unspecified; E78.5 Hyperlipidemia, unspecified; I10 Essential (primary) hypertension; J45.909 Unspecified asthma, uncomplicated; B18.2 Chronic viral hepatitis C; N40.0 Benign prostatic hyperplasia without lower urinary tract symptoms; Z59.02 Unsheltered homelessness; Z88.8 Allergy status to other drugs, medicaments and biological substances; F91.8 Other conduct disorders; Z91.199 Patient's noncompliance with other medical treatment and regimen due to unspecified reason
CPT/HCPCS: 36415; 80053; 80305; 80307; 81003; 82140; 85027; 86780; 86803; 87522; 87811

== ENCOUNTER 2025-03-16 14:56 | Inpatient (IN) | payer OTHER ==
[2025-03-16 15:32] VITALS: BMI 28.1
[2025-03-16] MEDS ORDERED: ONDANSETRON *ODT* 4 MG TABLET SL PRN (16:47)
[2025-03-16] MEDS ORDERED: guaiFENesin 600 MG TABLET.ER (FP) PO PRN (16:47)
[2025-03-16] MEDS ORDERED: BISMUTH SUBSALICYLATE 524 MG/30 ML PO PRN (16:47)
[2025-03-16] MEDS ORDERED: MAG HYDROX/AL HYDROX/SIMETH 30 ML UNIT-DOSE CUP PO PRN (16:47)
[2025-03-16] MEDS ORDERED: BENZOCAINE/MENTHOL (CHLORASEPTIC ) LOZENGE MM PRN (16:47)
[2025-03-16] MEDS ORDERED: NICOTINE POLACRILEX 2 MG GUM BUC PRN (16:47)
[2025-03-16] MEDS ORDERED: IBUPROFEN 600 MG TABLET (FP) PO PRN (16:47)
[2025-03-16] MEDS ORDERED: LOPERAMIDE HCL 2 MG CAPSULE PO PRN (16:47)
[2025-03-16] MEDS ORDERED: DICYCLOMINE HCL 10 MG CAPSULE PO PRN (16:47)
[2025-03-16] MEDS ORDERED: BENZONATATE 200 MG CAPSULE PO PRN (16:47)
[2025-03-16] MEDS ORDERED: POLYETHYLENE GLYCOL (HEALTHYLAX) 3350 17 GM PACKET PO PRN (16:47)
[2025-03-16] MEDS ORDERED: diazePAM 5 MG TABLET PO PRN (16:47)
[2025-03-16] MEDS ORDERED: ACETAMINOPHEN 325 MG TABLET (FP) PO PRN (16:47)
[2025-03-16] MEDS ORDERED: MAGNESIUM HYDROX 2400MG/30ML ORAL SUSPENSION 30 ML CUP PO PRN (16:47)
[2025-03-16] MEDS ORDERED: IBUPROFEN 400 MG TABLET (FP) PO PRN (16:47)
[2025-03-16] MEDS ORDERED: NALOXONE (NARCAN) HCL 4 MG/0.1 ML SPRAY NS PRN (16:47)
[2025-03-16] MEDS: diazePAM 5 MG TABLET PO SCH (17:30)
[2025-03-16] MEDS ORDERED: diazePAM 5 MG TABLET ONE (17:32)
[2025-03-16] MEDS ORDERED: ALBUTEROL SO4 HFA INHALER IH PRN (20:06)
[2025-03-16] MEDS: hydrOXYzine PAMOATE 25 MG CAPSULE (FP) PO PRN (22:28)
[2025-03-16] MEDS: METHOCARBAMOL 500 MG TABLET PO PRN (22:28)
[2025-03-16] MEDS: ATORVASTATIN CA 10 MG TABLET (FP) PO SCH (22:28)
[2025-03-16] MEDS: MELATONIN 5 MG TABLETS PO SCH (22:36)
[2025-03-16] MEDS: THIAMINE 100 MG TABLET PO SCH (22:36)
[2025-03-17 09:41] LABS: HEMOGLOBIN 12.3 g/dL (13.7-17.5); MCHC 32.4 g/dl (32.3-36.5); MEAN CELL VOLUME 93.8 fl (79.0-92.2); MEAN PLT VOLUME 10.6 fl (9.4-12.4); PLATELET COUNT 222 x10^3/uL (163-337); RDW 13.2 % (12.2-16.4)
[2025-03-17 09:43] LABS: CHLORIDE 109 mmol/L (98-107); POTASSIUM 4.2 mmol/L (3.5-5.1); SODIUM 140 mmol/L (136-145)
[2025-03-17] MEDS: TAMSULOSIN HCL 0.4 MG CAP PO SCH (09:47)
[2025-03-17 09:51] LABS: CALCIUM 8.8 mg/dL (8.5-10.1)
[2025-03-17 09:52] LABS: ALBUMIN 3.2 g/dl (3.4-5.0); ANION GAP 7 mmol/L (4-13); BLOOD UREA NITROGEN 24.6 mg/dL (7-18); CO2 24 mmol/L (21-32); GLUCOSE,RANDOM 94 mg/dL (74-106)
[2025-03-17 09:55] LABS: SGOT/AST 34 U/L (15-37); SGPT/ALT 37 U/L (13-61)
[2025-03-17 09:56] LABS: BILIRUBIN,TOTAL 0.4 mg/dL (0.2-1)
[2025-03-17 09:58] LABS: ALK PHOS 102 U/L (45-117)
[2025-03-17] MEDS: amLODIPine BESYLATE 10 MG TABLET (FP) PO SCH (10:26)
[2025-03-17] MEDS: FINASTERIDE 5 MG TABLET (FP) PO SCH (10:26)
[2025-03-17] MEDS: NICOTINE 14 MG/24 HOURS TOPICAL PATCH TD SCH (10:28)
[2025-03-17] MEDS: PRENATAL VITAMINS W/ FOLIC ACID TABLET (FP) PO SCH (10:28)
[2025-03-17] MEDS: ELVITEG/COB/EMTRI/TENOF (GENVOYA) TABLET PO SCH (11:43)
[2025-03-17] MEDS: QUEtiapine FUMARATE 200 MG TABLET PO SCH (23:05)
[2025-03-18] MEDS: diazePAM 5 MG TABLET PO SCH (06:38)
[2025-03-19] MEDS: diazePAM 5 MG TABLET PO SCH (06:33)
[2025-03-20] MEDS: diazePAM 5 MG TABLET PO ONE (06:01)
[2025-03-20 06:16] VITALS: BP 113/71; PULSE 68; RESP 17; TEMP 98
== END 2025-03-20 09:50 | disposition home or self-care (01) | DRG 774 ==
LOC: YASAS 14:56 → Y3N 17:20
PROVIDERS: ADMIT Allergy & Immunology; ATTEND Allergy & Immunology
PROC: HZ2ZZZZ Detoxification Services for Substance Abuse Treatment (ICD-10-PCS; principal; 2025-03-16)
DX: F10.230 Alcohol dependence with withdrawal, uncomplicated (principal); F14.20 Cocaine dependence, uncomplicated; F17.210 Nicotine dependence, cigarettes, uncomplicated; F19.24 Other psychoactive substance dependence with psychoactive substance-induced mood disorder; F31.9 Bipolar disorder, unspecified; F25.9 Schizoaffective disorder, unspecified; F41.9 Anxiety disorder, unspecified; Z21 Asymptomatic human immunodeficiency virus [HIV] infection status; E78.5 Hyperlipidemia, unspecified; I10 Essential (primary) hypertension; J45.20 Mild intermittent asthma, uncomplicated; K70.30 Alcoholic cirrhosis of liver without ascites; N40.0 Benign prostatic hyperplasia without lower urinary tract symptoms; Z86.19 Personal history of other infectious and parasitic diseases; Z79.899 Other long term (current) drug therapy; Z88.8 Allergy status to other drugs, medicaments and biological substances
CPT/HCPCS: 36415; 80053; 80305; 80307; 85027; 86780; 93005; 93010